=== PATIENT | female | born 1975 | race Caucasian/White ===

== ENCOUNTER 2020-04-26 15:04 | Emergency (ER) | payer SELFPAY ==
[2020-04-26] VITALS (13 sets, daily range): BP systolic 108–132; BP diastolic 64–91; PULSE 85–208; RESP 13–26; TEMP 35.9; O2SAT 97–100; BMI 22.1
--- NOTE | 2020-04-26 15:32 | XRR_ITS ---
PROCEDURE INFORMATION: Exam: XR Chest, 1 View Exam date and time: 04/26/2020 3:34 PM Age: 44 years old Clinical indication: Chest pain; Additional info: Svt TECHNIQUE: Imaging protocol: XR of the chest Views: 1 view. COMPARISON: CR Chest 1 [place] [id number] 03/24/2014 11:09 PM FINDINGS: Lungs: Unremarkable. No consolidation. Pleural space: Unremarkable. No pleural effusion. No pneumothorax. Heart/Mediastinum: Unremarkable. No cardiomegaly. Bones/joints: Unremarkable. XR/XR chest 1V portable [id number] IMPRESSION: No acute findings.
--- NOTE | 2020-04-26 15:34 | ECG_ITS ---
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
[2020-04-26 16:33] LABS: Basophils # 0.1 10^3/uL (0.0-0.1); Basophils % 1.1 %; Eosinophils # 0.1 10^3/uL (0.0-0.8); Eosinophils % 1.6 %; Hematocrit 45.7 % (37.0-47.0); Hemoglobin 15.9 g/dL (11.5-15.3); Lymphocytes # 2.3 10^3/uL (0.8-4.8); Lymphocytes % 25.8 %; Mean Corpuscular HGB Conc 34.8 g/dL (30.0-36.0); Mean Corpuscular Hemoglobin 30.7 pg (28.0-34.0); Mean Corpuscular Volume 88.2 fL (81-99); Mean Platelet Volume 9.1 fL (7.4-10.4); Monocytes # 0.7 10^3/uL (0.2-0.9); Monocytes % 7.2 %; Neutrophils # 5.74 10^3/uL (1.8-7.7); Nucleated Red Blood Cells % 0 %; Platelet Count 340 10^3/cmm (130-400); Red Blood Count 5.18 10^6/uL (4.1-5.3); Red Cell Distribution Width 11.9 % (12.1-15.1)
[2020-04-26 16:37] LABS: HCG Qualitative Urine. Negative (Negative); Specific Gravity, Urine 1.015 (1.005-1.030); Urine Appearance Hazy (CLEAR); Urine Color Yellow (Yellow); pH Urine 6.5 (5-7)
[2020-04-26 16:38] LABS: Add Urine Microscopic? YES; Bilirubin Urine Neg (Negative); Blood Urine Neg (Negative); Glucose Urine UA 4+ (Normal); Ketones Urine Negative (Negative); Leukocyte Esterase Urine Negative (Negative); Nitrate Urine Positive (Negative); Protein Urine Neg (Negative); Urobilinogen Urine Norm (Negative)
[2020-04-26 16:39] LABS: WBC Urine 0-4 /hpf (0-5)
[2020-04-26 16:40] LABS: Bacteria Urine 4+ /hpf
[2020-04-26 16:41] LABS: Add Urine Culture? Yes
[2020-04-26 16:44] LABS: Amphetamines Screen Urine Negative (Negative); Barbiturates Screen Urine Negative (Negative); Benzodiazepines Screen Urine Negative (Negative); Cocaine Screen Urine Negative (Negative); Opiate Screen Urine Negative (Negative); PCP Screen Urine Negative (Negative); THC Screen Urine Negative (Negative)
[2020-04-26 16:45] LABS: INR 0.89 (0.8-1.2)
[2020-04-26 16:48] LABS: D Dimer 0.38 ug/mIFEU (0-0.59)
[2020-04-26 16:49] LABS: Lactate (Lactic Acid level) 1.5 mmol/L (0.5-2.2)
[2020-04-26 17:01] LABS: NT Pro B Type Natriuretic Pept 89 pg/mL (0-125); Procalcitonin 0.06 ng/mL (0-0.5)
[2020-04-26 17:14] LABS: Alanine Aminotransferase 203 U/L (0-33); Albumin Level 4.1 g/dL (3.5-5.2); Alkaline Phosphatase 154 IU/L (35-105); Anion Gap 14.3 (5-19); Aspartate Amino Transferase 138 U/L (0-32); Blood Urea Nitrogen 14 mg/dL (6-20); C Reactive Protein 0.4 mg/L (0.0-4.9); Calcium 9.3 mg/dL (8.5-10.5); Carbon Dioxide 28 mmol/L (22-29); Chloride 91 mmol/L (98-107); Creatine Phosphokinase 30 U/L (26-192); Creatinine Clr Calc Pharmacy 150.1443; Globulin 2.8 g/dL (1.3-4.6); Glomerular Filtration Rate 171.8 mL/min (90-130); Glucose 362 mg/dL (65-115); Magnesium 1.7 mg/dL (1.7-2.3); Osmolality Calculated 283 mOsm/kg (285-295); Potassium 4.3 mmol/L (3.5-5.1); Sodium 129 mmol/L (136-145); Total Bilirubin 0.2 mg/dL (0.15-1.2); Total Protein 6.9 g/dL (6.6-8.7)
[2020-04-26 17:15] LABS: Alcohol Level < 10 mg/dL (0-10); Thyroid Stimulating Hormone 5.09 uIU/mL (0.27-4.20); Troponin(5th) Baseline 8 ng/L (0-10)
--- NOTE | 2020-04-26 17:28 | USR_ITS ---
PROCEDURE INFORMATION: Exam: US Abdomen, Limited; Right Upper Quadrant Exam date and time: 04/26/2020 5:35 PM Age: 44 years old Clinical indication: Abnormal findings; Abnormal lab test; Elevated liver enzymes TECHNIQUE: Imaging protocol: US abdomen. Real time ultrasound with image documentation. Limited exam focused on the right upper quadrant. COMPARISON: No relevant prior studies available. FINDINGS: Liver: There is diffuse increased echogenicity consistent with hepatic steatosis. No masses. The liver span is 15 cm. No dilated bile ducts seen. Gallbladder: Normal. No gallstones. There is no gallbladder wall thickening. Common bile duct: Normal. No stones. 3.2 mm Pancreas: Visualized pancreas is unremarkable. Right kidney: Normal. No mass. No hydronephrosis. 11.8 cm x 5.5 cm x 5.8 cm a a The abdominal aorta a has AP measurement of 1.4 cm in the proximal aspect, the mid aorta measures 1.3 cm. The distal aorta is not visible due to bowel gas. US/US gall bladder [id number] IMPRESSION: 1. Hepatic steatosis without focal hepatic abnormality. 2. Normal mid and proximal aorta 3. Otherwise negative right upper quadrant sonogram
[2020-04-26] MEDS: sodium chloride 0.9% 1,000 ML 999 ML IV (17:40)
--- NOTE | 2020-04-26 18:00 | ECG_ITS ---
[facility] Test Date: 2020-04-26 Pat Name: Mena Zelaya Department: Room: Gender: Female Collator: : 1975 Requested By: Aixa Lopez I Order Number: [id number] Zoraida MD: Josie Roth M.D. Measurements Intervals [place] Rate: 197 P: [place]: QRS: 23 QRSD: 88 T: 75 QT: 216 QTc: 391 Interpretive Statements SUPRAVENTRICULAR TACHYCARDIA NONSPECIFIC ST & T-WAVE ABNORMALITY CRITICAL TEST RESULT No previous ECG available for comparison Electronically Signed On 04-28-2020 17:19:07 ACREAGE REPORTER by Josie Roth M.D. [id number] f
[2020-04-26] MEDS: ketorolac 30 mg/mL INJ IVP (18:08)
[2020-04-26] MEDS: cefTRIAXone 1,000 MG in sodium chloride 0.9% (plus) 50 ML 100 MG IV (18:53)
[2020-04-26 20:06] LABS: Troponin 5 2HR 13.26 ng/L (0-10); Troponin 5 2HR Delta 5.26 ABS# (0-10)
--- NOTE | 2020-04-26 20:37 | W.ED.ARRPALP ---
HPI - Arrhythmia/Palpitations General: Chief Complaint: Arrhythmia/Palpitations Stated Complaint: high bp/head ache Time Seen by Provider: 04/26/20 15:32 Source: patient Mode of arrival: ambulatory Limitations: no limitations History of Present Illness: HPI narrative: 44-year-old female patient with a history of insulin-dependent diabetes mellitus but has been off her medication for several years, hypothyroidism and has been off her meds also for several years. She presents to the emergency department with a sensation of her heart racing, dizziness and headache. She denies any fever, denies any new medications. She also denies any drug use. complaint: heart racing Duration: constant Severity: severe Context: occurred during rest Associated symptoms: Deny anxiety, cough, diaphoresis, muscle cramps, nausea, paresthesias, pre-syncope, sense of impending doom, short of breath, syncope or vomiting Review of Systems General: Reports: 10 or more systems reviewed and unremarkable except in HPI and below Const: Denies: diaphoresis Eyes: Denies: change in vision or blurry vision ENMT: Denies: throat pain, enlarged tonsils, odynophagia, hoarseness, mouth pain or swelling of lips/tongue Card: Denies: syncope or pre-syncope Resp: Denies: dyspnea, productive cough or non-productive cough GI: Denies: nausea or vomiting : Denies: flank pain, difficulty voiding, dysuria, urinary frequency, urinary urgency or urinary hesitancy Musc: Denies: muscle cramps Skin/Breast: Denies: rash, pruritus or erythema Neuro: Denies: headache(s), numbness in extremities or weakness in extremities Psych: Denies: anxiety Endo: Denies: polyuria, polydipsia or tired all the time [facility] PFSH: Social History Smoking and tobacco status: current every day smoker Physical Exam Const: COMMON NORMALS: no acute distress, average body habitus, patient oriented x3, no limitations, healthy appearing, alert and well nourished HENMT: COMMON NORMALS: normocephalic, atraumatic and moist oral mucous membranes HEAD & SCALP: normocephalic and atraumatic Neck/C-Spine: COMMON NORMALS: full ROM, supple, no meningeal signs, no JVD and No carotid bruits Resp: COMMON NORMALS: normal respiratory effort, No retractions, No use of accessory muscles, clear to auscultation bilaterally and percussion normal AUSCULTATION: clear to auscultation bilaterally PERCUSSION: percussion normal Cardio: COMMON NORMALS: no JVD, regular rhythm, S1 normal heart sound present, S2 normal heart sound present, No gallops present (Cardio), No clicks present (Cardio), No murmurs present (Cardio), No rub (Cardio) and Peripheral pulses 2+ throughout RATE: tachycardic RHYTHM: regular rhythm HEART SOUNDS: S1 normal heart sound present and S2 normal heart sound present PERIPHERAL PULSES: Peripheral pulses 2+ throughout GI: COMMON NORMALS: Normal to inspection, nondistended, normoactive bowel sounds present, Soft to palpation, non-tender, No hepatosplenomegaly present, no masses and no bruits PALPATION: Yes Soft to palpation and Yes No hepatosplenomegaly present Extremity: COMMON NORMALS: normal to inspection, full ROM, capillary refill normal, no calf tenderness and no pedal edema Neuro: COMMON NORMALS: patient oriented x3 SENSORIUM/ORIENTATION: Yes alert MENINGEAL SIGNS: Yes no meningeal signs Skin: COMMON NORMALS: no rashes or lesions noted, no wounds, turgor normal, no jaundice, no petechiae and no mottling GENERAL SKIN EXAM: no rashes or lesions noted and turgor normal Course Reevaluation(s): Reevaluation #1: Discussed her lab and imaging findings with her. TSH mildly elevated, mildly elevated troponin but not a significant 2-hour delta. Urine consistent with a UTI. We will discharge her home with a prescription for antibiotics, refill her thyroid medication and her insulin since she has been out of it for a long time. She will follow at the present clinic for further management. She has a glucometer and can monitor her blood glucose. We will start her on a low-dose Levemir at 10 units. She voiced understanding and is in agreement with the plan. Time: 20:38 Vital Signs: Vital signs: Vital Signs Temperature 96.6 F L 04/26/20 15:13 Pulse Rate 89 04/26/20 21:12 Respiratory Rate 16 04/26/20 21:12 Blood Pressure 115/64 04/26/20 21:12 Pulse Oximetry 97 04/26/20 21:12 MDM - Arrhythmia/Palpitations MDM Narrative: Medical decision making narrative: 44-year-old female patient who presents to the emergency department in SVT. Her heart rate was in the 190s/low 200s when she arrived, she was given a single dose of intravenous adenosine, 6 mg. This was successful at aborting the SVT. She remained asymptomatic afterwards. Her heart rate gradually came down to normal sinus rhythm. Evaluation in the ED showed she had a UTI and she was hypothyroid. She was discharged home with a prescription for Bactrim, levothyroxine and insulin. She has not had her medications for several years because she is uninsured. I discussed the option of the [facility] clinic here in [place] and she says she has already looked into that and will follow up there. She will be receiving her care from there from now on. I gave her a 30-day prescription of her medications while she gets an appointment at the clinic. Medical Records: Attestation: I reviewed the patient's medical records. Lab Data: Attestation: I reviewed the patient's lab results. Labs: Lab Results 04/26/20 04/26/20 04/26/20 Range/Units 16:06 16:06 16:06 WBC (4.0-10.0) 10^3/ uL RBC (4.1-5.3) 10^6/u L Hgb (11.5-15.3) g/dL Hct (37.0-47.0) % MCV (81-99) fL MCH (28.0-34.0) pg MCHC (30.0-36.0) g/dL RDW (12.1-15.1) % Plt Count (130-400) 10^3/c mm MPV (7.4-10.4) fL Neut % (Auto) % Lymph % (Auto) % Lyman % (Auto) % Eos % (Auto) % Baso % (Auto) % Neut # (Auto) (1.8-7.7) 10^3/u L Lymph # (Auto) (0.8-4.8) 10^3/u L Lyman # (Auto) (0.2-0.9) 10^3/u L Eos # (Auto) (0.0-0.8) 10^3/u L Baso # (Auto) (0.0-0.1) 10^3/u L Nucleated RBC % (a uto) % Nucleated RBCs # /100WBC PT (12.1-14.9) SECO NDS INR (0.8-1.2) D-Dimer (0-0.59) ug/mIFE U Sodium (136-145) mmol/L Potassium (3.5-5.1) mmol/L Chloride (98-107) mmol/L Carbon Dioxide (22-29) mmol/L Anion Gap (5-19) BUN (6-20) mg/dL Creatinine (0.5-0.9) mg/dL GFR Calculation (90-130) mL/min Glucose (65-115) mg/dL Calculated Osmolal ity (285-295) mOsm/k g Lactate (0.5-2.2) mmol/L Calcium (8.5-10.5) mg/dL Magnesium (1.7-2.3) mg/dL Total Bilirubin (0.15-1.2) mg/dL AST (0-32) U/L ALT (0-33) U/L Alkaline Phosphata se (35-105) IU/L Creatine Kinase (26-192) U/L Troponin T Baselin e (0-10) ng/L Troponin T 120 Min [place] (0-10) ng/L Delta Troponin T (0-10) ABS# C-Reactive Protein (0.0-4.9) mg/L NT-Pro-B Natriuret Pep (0-125) pg/mL Total Protein (6.6-8.7) g/dL Albumin (3.5-5.2) g/dL Globulin (1.3-4.6) g/dL Procalcitonin (0-0.5) ng/mL TSH (0.27-4.20) uIU/ mL HCG, Qual Negative (Negative) Urine Color Yellow (Yellow) Urine Appearance Hazy A (CLEAR) Urine pH 6.5 (5-7) Ur Specific Gravit y 1.015 (1.005-1.030) Urine Protein Neg (Negative) Urine Glucose (UA) 4+ H (Normal) Urine Ketones Negative (Negative) Urine Blood Neg (Negative) Urine Nitrate Positive H (Negative) Urine Bilirubin Neg (Negative) Urine Urobilinogen Norm (Negative) mg/dL Ur Leukocyte Ashanti ase Negative (Negative) Urine RBC None (0-2) /hpf Urine WBC 0-4 H (0-5) /hpf Ur Squamous Epith Cells 5-10 H (0-5) /hpf Amorphous Sediment Not Reportable Urine Bacteria 4+ H (NONE) /hpf Urine Yeast Trace /hpf Urine Opiates Scre en Negative (Negative) ng/mL Ur Barbiturates Sc reen Negative (Negative) ng/mL Ur Phencyclidine S crn Negative (Negative) ng/mL Ur Amphetamines Sc reen Negative (Negative) ng/mL U Benzodiazepines Scrn Negative (Negative) ng/mL Urine Cocaine Scre en Negative (Negative) ng/mL U Marijuana (THC) Screen Negative (Negative) ng/mL Ethyl Alcohol (0-10) mg/dL 04/26/20 04/26/20 04/26/20 Range/Units 16:22 16:22 16:22 WBC 9.0 (4.0-10.0) 10^3/ uL RBC 5.18 (4.1-5.3) 10^6/u L Hgb 15.9 H (11.5-15.3) g/dL Hct 45.7 (37.0-47.0) % MCV 88.2 (81-99) fL MCH 30.7 (28.0-34.0) pg MCHC 34.8 (30.0-36.0) g/dL RDW 11.9 L (12.1-15.1) % Plt Count 340 (130-400) 10^3/c mm MPV 9.1 (7.4-10.4) fL Neut % (Auto) 64.0 % Lymph % (Auto) 25.8 % Lyman % (Auto) 7.2 % Eos % (Auto) 1.6 % Baso % (Auto) 1.1 % Neut # (Auto) 5.74 (1.8-7.7) 10^3/u L Lymph # (Auto) 2.3 (0.8-4.8) 10^3/u L Lyman # (Auto) 0.7 (0.2-0.9) 10^3/u L Eos # (Auto) 0.1 (0.0-0.8) 10^3/u L Baso # (Auto) 0.1 (0.0-0.1) 10^3/u L Nucleated RBC % (a uto) 0 % Nucleated RBCs # 0.0 /100WBC PT 12.30 (12.1-14.9) SECO NDS INR 0.89 (0.8-1.2) D-Dimer 0.38 (0-0.59) ug/mIFE U Sodium 129 L (136-145) mmol/L Potassium 4.3 (3.5-5.1) mmol/L Chloride 91 L (98-107) mmol/L Carbon Dioxide 28 (22-29) mmol/L Anion Gap 14.3 (5-19) BUN 14 (6-20) mg/dL Creatinine 0.4 L (0.5-0.9) mg/dL GFR Calculation 171.8 H (90-130) mL/min Glucose 362 H (65-115) mg/dL Calculated Osmolal ity 283 L (285-295) mOsm/k g Lactate (0.5-2.2) mmol/L Calcium 9.3 (8.5-10.5) mg/dL Magnesium 1.7 (1.7-2.3) mg/dL Total Bilirubin 0.2 (0.15-1.2) mg/dL AST 138 H (0-32) U/L ALT 203 H (0-33) U/L Alkaline Phosphata se 154 H (35-105) IU/L Creatine Kinase 30 (26-192) U/L Troponin T Baselin e (0-10) ng/L Troponin T 120 Min [place] (0-10) ng/L Delta Troponin T (0-10) ABS# C-Reactive Protein 0.4 (0.0-4.9) mg/L NT-Pro-B Natriuret Pep 89 (0-125) pg/mL Total Protein 6.9 (6.6-8.7) g/dL Albumin 4.1 (3.5-5.2) g/dL Globulin 2.8 (1.3-4.6) g/dL Procalcitonin 0.06 (0-0.5) ng/mL TSH 5.09 H (0.27-4.20) uIU/ mL HCG, Qual (Negative) Urine Color (Yellow) Urine Appearance (CLEAR) Urine pH (5-7) Ur Specific Gravit y (1.005-1.030) Urine Protein (Negative) Urine Glucose (UA) (Normal) Urine Ketones (Negative) Urine Blood (Negative) Urine Nitrate (Negative) Urine Bilirubin (Negative) Urine Urobilinogen (Negative) mg/dL Ur Leukocyte Ashanti ase (Negative) Urine RBC (0-2) /hpf Urine WBC (0-5) /hpf Ur Squamous Epith Cells (0-5) /hpf Amorphous Sediment Urine Bacteria (NONE) /hpf Urine Yeast /hpf Urine Opiates Scre en (Negative) ng/mL Ur Barbiturates Sc reen (Negative) ng/mL Ur Phencyclidine S crn (Negative) ng/mL Ur Amphetamines Sc reen (Negative) ng/mL U Benzodiazepines Scrn (Negative) ng/mL Urine Cocaine Scre en (Negative) ng/mL U Marijuana (THC) Screen (Negative) ng/mL Ethyl Alcohol < 10 (0-10) mg/dL 04/26/20 04/26/20 04/26/20 Range/Units 16:22 16:22 19:26 WBC (4.0-10.0) 10^3/ uL RBC (4.1-5.3) 10^6/u L Hgb (11.5-15.3) g/dL Hct (37.0-47.0) % MCV (81-99) fL MCH (28.0-34.0) pg MCHC (30.0-36.0) g/dL RDW (12.1-15.1) % Plt Count (130-400) 10^3/c mm MPV (7.4-10.4) fL Neut % (Auto) % Lymph % (Auto) % Lyman % (Auto) % Eos % (Auto) % Baso % (Auto) % Neut # (Auto) (1.8-7.7) 10^3/u L Lymph # (Auto) (0.8-4.8) 10^3/u L Lyman # (Auto) (0.2-0.9) 10^3/u L Eos # (Auto) (0.0-0.8) 10^3/u L Baso # (Auto) (0.0-0.1) 10^3/u L Nucleated RBC % (a uto) % Nucleated RBCs # /100WBC PT (12.1-14.9) SECO NDS INR (0.8-1.2) D-Dimer (0-0.59) ug/mIFE U Sodium (136-145) mmol/L Potassium (3.5-5.1) mmol/L Chloride (98-107) mmol/L Carbon Dioxide (22-29) mmol/L Anion Gap (5-19) BUN (6-20) mg/dL Creatinine (0.5-0.9) mg/dL GFR Calculation (90-130) mL/min Glucose (65-115) mg/dL Calculated Osmolal ity (285-295) mOsm/k g Lactate 1.5 (0.5-2.2) mmol/L Calcium (8.5-10.5) mg/dL Magnesium (1.7-2.3) mg/dL Total Bilirubin (0.15-1.2) mg/dL AST (0-32) U/L ALT (0-33) U/L Alkaline Phosphata se (35-105) IU/L Creatine Kinase (26-192) U/L Troponin T Baselin e 8 (0-10) ng/L Troponin T 120 Min [place] 13.26 H (0-10) ng/L Delta Troponin T 5.26 (0-10) ABS# C-Reactive Protein (0.0-4.9) mg/L NT-Pro-B Natriuret Pep (0-125) pg/mL Total Protein (6.6-8.7) g/dL Albumin (3.5-5.2) g/dL Globulin (1.3-4.6) g/dL Procalcitonin (0-0.5) ng/mL TSH (0.27-4.20) uIU/ mL HCG, Qual (Negative) Urine Color (Yellow) Urine Appearance (CLEAR) Urine pH (5-7) Ur Specific Gravit y (1.005-1.030) Urine Protein (Negative) Urine Glucose (UA) (Normal) Urine Ketones (Negative) Urine Blood (Negative) Urine Nitrate (Negative) Urine Bilirubin (Negative) Urine Urobilinogen (Negative) mg/dL Ur Leukocyte Ashanti ase (Negative) Urine RBC (0-2) /hpf Urine WBC (0-5) /hpf Ur Squamous Epith Cells (0-5) /hpf Amorphous Sediment Urine Bacteria (NONE) /hpf Urine Yeast /hpf Urine Opiates Scre en (Negative) ng/mL Ur Barbiturates Sc reen (Negative) ng/mL Ur Phencyclidine S crn (Negative) ng/mL Ur Amphetamines Sc reen (Negative) ng/mL U Benzodiazepines Scrn (Negative) ng/mL Urine Cocaine Scre en (Negative) ng/mL U Marijuana (THC) Screen (Negative) ng/mL Ethyl Alcohol (0-10) mg/dL Imaging Data^: CXR: Attestation: I personally reviewed and interpreted this imaging study as follows: Radiologist's impression: [employer] [address] [place] [id number] XRay Report Signed Patient: Mena Zelaya #: [id number] : 1975Acct#:[id number] Age/Sex: 44 / FADM Date: 04/26/20 Loc: ERRoom/Bed: Attending Dr: Ordering Provider/Ordering MD: Aixa Lopez MD, [facility] Date of Service: 04/26/20 Procedure(s): XR chest 1V portable [id number] Accession Number(s): [id number] Report Number: [id number] PROCEDURE INFORMATION: Exam: XR Chest, 1 View Exam date and time: 04/26/2020 3:34 PM Age: 44 years old Clinical indication: Chest pain; Additional info: Svt TECHNIQUE: Imaging protocol: XR of the chest Views: 1 view. COMPARISON: CR Chest 1 [place] [id number] 03/24/2014 11:09 PM FINDINGS: Lungs: Unremarkable. No consolidation. Pleural space: Unremarkable. No pleural effusion. No pneumothorax. Heart/Mediastinum: Unremarkable. No cardiomegaly. Bones/joints: Unremarkable. XR/XR chest 1V portable [id number] IMPRESSION: No acute findings. Dictated By:Colin Goodson Signed By:Andrews Goodson Date/Time:04/26/20 1642 DD/ 1641 US: Radiologist's impression: [employer] [address] [place] [id number] Ultrasound Report Signed Patient: Mena Zelaya #: [id number] : 1975Acct#:[id number] Age/Sex: 44 / FADM Date: 04/26/20 Loc: ERRoom/Bed: Attending Dr: Ordering Provider/Ordering MD: Aixa Lopez MD, [facility] Date of Service: 04/26/20 Procedure(s): US gall bladder [id number] Accession Number(s): [id number] Report Number: [id number] PROCEDURE INFORMATION: Exam: US Abdomen, Limited; Right Upper Quadrant Exam date and time: 04/26/2020 5:35 PM Age: 44 years old Clinical indication: Abnormal findings; Abnormal lab test; Elevated liver enzymes TECHNIQUE: Imaging protocol: US abdomen. Real time ultrasound with image documentation. Limited exam focused on the right upper quadrant. COMPARISON: No relevant prior studies available. FINDINGS: Liver: There is diffuse increased echogenicity consistent with hepatic steatosis. No masses. The liver span is 15 cm. No dilated bile ducts seen. Gallbladder: Normal. No gallstones. There is no gallbladder wall thickening. Common bile duct: Normal. No stones. 3.2 mm Pancreas: Visualized pancreas is unremarkable. Right kidney: Normal. No mass. No hydronephrosis. 11.8 cm x 5.5 cm x 5.8 cm a a The abdominal aorta a has AP measurement of 1.4 cm in the proximal aspect, the mid aorta measures 1.3 cm. The distal aorta is not visible due to bowel gas. US/US gall bladder [id number] IMPRESSION: 1. Hepatic steatosis without focal hepatic abnormality. 2. Normal mid and proximal aorta 3. Otherwise negative right upper quadrant sonogram Dictated By:Colin Goodson Signed By:Andrews Goodson Date/Time:04/26/201816 DD/ 14 EKG Data^: EKG 1: Attestation: I personally reviewed and interpreted this EKG as follows: EKG interpretation date: 04/26/20 EKG interpretation time: 15:21 Prior EKG tracings: not available for review Interpretation: Supraventricular tachycardia. Heart rate [address] changes. Other EKG comments: Chest X-Ray 04/26/20 15:32 IMPRESSION: No acute findings. Gallbladder Ultrasound 04/26/20 17:28 IMPRESSION: 1. Hepatic steatosis without focal hepatic abnormality. 2. Normal mid and proximal aorta 3. Otherwise negative right upper quadrant sonogram EKG 2: Attestation: I personally reviewed and interpreted this EKG as follows: EKG interpretation date: 04/26/20 EKG interpretation time: 15:27 Prior EKG tracings: available for review Interpretation: Sinus tachycardia. Heart rate [address] changes. This is post adenosine 6 mg intravenously Other EKG comments: Chest X-Ray 04/26/20 15:32 IMPRESSION: No acute findings. Gallbladder Ultrasound 04/26/20 17:28 IMPRESSION: 1. Hepatic steatosis without focal hepatic abnormality. 2. Normal mid and proximal aorta 3. Otherwise negative right upper quadrant sonogram Critical Care Time Critical Care Time: Critical Care Time: Yes Total Critical Care Time: 30 Attestation: This case had a high probability of a clinically significant, sudden, or life threatening deterioration of this patient's condition which required my full and direct attention, intervention and personal management. Discharge Plan Discharge Patient Disposition: Home Clinical Impression: Supraventricular tachycardia Diabetes Qualifiers: Diabetes mellitus type: type 2 Diabetes mellitus snf insulin use: with exterminator helper termite use Diabetes mellitus complication status: without complication Qualified Code(s): E11.9 - Type 2 diabetes mellitus without complications Hypothyroidism Qualifiers: Hypothyroidism type: unspecified Qualified Code(s): E03.9 - Hypothyroidism, unspecified UTI (urinary tract infection) Qualifiers: Urinary tract infection type: acute cystitis Hematuria presence: without hematuria Qualified Code(s): N30.00 - Acute cystitis without hematuria Condition: Stable Prescriptions: New Bactrim DS 800-160 mg tablet 1 tab PO BID 5 Days Qty: 10 RF: 0 levothyroxine 125 mcg tablet 125 mcg PO DAILY Qty: 30 RF: 0 Levemir U-100 Insulin 100 unit/mL solution 10 unit SUBCUT QPM Qty: 10 RF: 0 Discharge Orders: Discharge ED (Routine); Ordered 04/26/20 Ordered By: Aixa Lopez Discharge Diet: Usual diet Discharge Activity: Resume usual activity Patient Instructions: Supraventricular Tachycardia (ED), Urinary Tract Infection in Women (ED), Hypothyroidism (ED), Diabetes Mellitus Type 2 in Adults (ED) Activity Restrictions/Additional Instructions: Return for any new or worsening symptoms. Follow-up with your primary care provider within 3 days. Call the [facility] to schedule an appointment to be seen there as soon as possible. Take the medications as prescribed. Check your blood sugar levels at least twice a day, once before breakfast and once before bedtime. You may check it at any time in between if you feel your blood sugars getting too low. Take the medications as prescribed. Drink plenty of water to keep well-hydrated. Coding Level of Care Code ED Biological Technical Officer for Esperanza Fwd Exam Comprehensive
== END 2020-04-26 21:48 | disposition home or self-care (01) ==
PROVIDERS: Nurse Practitioner Family; Emergency Provider Family Medicine
DX: I47.1 Supraventricular tachycardia (principal); E11.9 Type 2 diabetes mellitus without complications; E03.9 Hypothyroidism, unspecified; N30.00 Acute cystitis without hematuria; F17.210 Nicotine dependence, cigarettes, uncomplicated
CPT/HCPCS: 12345; 36415; 71045; 76705; 80053; 80306; 80307; 81001; 81025; 82550; 83605; 83735; 83880; 84145; 84443; 84484; 85025; 85378; 85610; 86140; 87077; 87086; 87186; 93005; 96365; 96375; 99283; 99284; J0153; J0696; J1885; J7030

== ENCOUNTER 2020-07-04 16:05 | Observation (INO) | payer SELFPAY ==
[2020-07-04] VITALS (10 sets, daily range): BP systolic 103–138; BP diastolic 62–80; PULSE 64–108; RESP 17–22; TEMP 36.7–36.8; O2SAT 96–100; BMI 21.2
--- NOTE | 2020-07-04 16:11 | ECG_ITS ---
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 Measurements Intervals [place] Rate: 114 P: 42 W[place]: 128 QRS: 14 QRSD: 70 T: 30 QT: 290 QTc: 400 Interpretive Statements SINUS TACHYCARDIA ABNORMAL RHYTHM ECG INTERPRETATION BASED ON A DEFAULT AGE OF 40 YEARS Compared to ECG 04/26/2020 15:27:52 No significant changes Electronically Signed On 07-04-2020 19:26:33 FURNACE HELPER by aB Cyr M.D. [id number] f
--- NOTE | 2020-07-04 16:11 | XRR_ITS ---
PROCEDURE INFORMATION: Exam: XR Chest, 1 View Exam date and time: 07/04/2020 4:44 PM Age: 44 years old Clinical indication: Chest pain; Additional info: Cp TECHNIQUE: Imaging protocol: XR of the chest Views: 1 view. COMPARISON: CR XR chest 1V portable [id number] 04/26/2020 3:41 PM FINDINGS: Lungs: No consolidation. Pleural spaces: Unremarkable. No pleural effusion. No pneumothorax. Heart/Mediastinum: No cardiomegaly. Bones/joints: Mild degenerative thoracic spine changes. XR/XR chest 1V portable [id number] IMPRESSION: 1. No acute cardiopulmonary disease demonstrated. 2. There is no interval change from the prior examination.
--- NOTE | 2020-07-04 16:15 | W.ED.GENADLT ---
HPI - General Adult General: Chief complaint: Chest Pain Stated complaint: CP / N/V Time Seen by Provider: 07/04/20 16:11 History of Present Illness: HPI narrative: The patient is a 44-year-old female with past medical history diabetes noncompliant with her medications and follow-ups for years. She comes to the ER complaining of left chest pain which was a 10 at home. She has been having it for approximately 2 weeks as well as fevers up to 101 at home. She is taken no medications for this and her glucose is above 460 in EMS prior to arrival. EMS gave her 4 baby aspirin's and a nitroglycerin which she said relieved her pain from a 7 to a 6. They placed Nitropaste which in the ED she says her pain on the left side has eased but now she has 6 out of 10 pain on the right breast. She says she has a history of SVT as well and is not sure why or what happened. She says her chest pain has been on and off for years but the past 2 weeks it has been increasing and today it was a 10 out of 10 opting her to call 911. When I palpate her chest she says it reproduces the pain she is having. Radiation: non-radiation Severity: moderate Quality: sharp Associated symptoms: Reports chest pain, fevers/chills and headache(s); Deny cough, dyspnea, nausea, rash, short of breath or vomiting Treatments prior to arrival: none Review of Systems General: Reports: 10 or more systems reviewed and unremarkable except in HPI and below Const: Denies: fatigue Eyes: Denies: change in vision, blurry vision or eye redness ENMT: Denies: throat pain, swelling of lips/tongue, ear or mastoid pain or nasal congestion Card: Reports: chest pain Resp: Denies: dyspnea GI: Denies: nausea or vomiting : Denies: flank pain, difficulty voiding, urinary frequency or urinary urgency Musc: Denies: neck pain, back pain, extremity pain, joint pain, joint redness, limited range of motion or muscle weakness Skin/Breast: Denies: rash, pruritus, erythema, skin pain or skin tenderness Neuro: Reports: headache(s) Psych: Denies: anxiety or depression Endo: Denies: polyuria All/Imm: Denies: urticaria, throat swelling or tongue swelling PFSH ED PFSH: Medical History (Updated 07/04/20 @ 22:16 by Cristel Brock MD) Anxiety Chronic bronchitis Diabetes initially gestational age ~24, persisted and diagnosed as Type II diabetes, obese at onset, no change with weight loss Dyslipidemia Hepatitis C 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, s/p treatment with interferon in ~ 1999 by Eddie 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 History of MRSA infection diabetic wounds Marijuana use JOSE (obstructive sleep apnea) per sleep study 2010, CPAP of 13 recommended at that time, no longer with machine Supraventricular tachycardia (~04/2020) identified during ED visit 04/2020, treated with 6mg adenosine with conversion to sinus Surgical History (Updated 07/04/20 @ 20:53 by Cristel Brock MD) History of hysterectomy (~2011) also Kimberly urethral plication History of incision and drainage (~2013) right upper extremity and R lower extremity History of tubal ligation History of umbilical hernia repair (~2011) Family History (Updated 07/04/20 @ 21:42 by Cristel Brock MD) Father Diabetes Mother Diabetes Grandfather Pacemaker Denies family history of Stroke Social History (Updated 07/04/20 @ 21:43 by Cristel Brock MD) Smoking and tobacco status: current every day smoker cigarettes Number of cigarettes per day: 11-20 Alcohol intake: never Substance/Drug Use: current Substance/Drug use frequency: few times a month Substance/Drug use type: Marijuana Physical Exam Const: COMMON NORMALS: no acute distress, average body habitus, patient oriented x3, no limitations, healthy appearing, alert and well nourished GENERAL APPEARANCE: cooperative, comfortable, well developed and anxious ORIENTATION/CONSCIOUSNESS: Yes awake, Yes oriented to person, Yes oriented to place and Yes oriented to time HENMT: COMMON NORMALS: normocephalic, external ears normal and Normal external nose present HEAD & SCALP: normal to inspection and normocephalic NOSE: Normal external nose present EXTERNAL EAR: Yes external ears normal MOUTH: Normal oral and palatal mucosa present THROAT: posterior oropharynx normal Eye: COMMON NORMALS: Equal, round and reactive pupils present and EOMs intact bilaterally GENERAL EYE: appearance normal, both eyes and all related structures PUPIL: Yes Equal, round and reactive pupils present Neck/C-Spine: COMMON NORMALS: full ROM, no lymphadenopathy, no meningeal signs and no JVD GENERAL: Yes normal visual inspection Lymph: LYMPHATIC: no lymphadenopathy noted Chest: COMMONS NORMALS: normal inspection of the chest and normal palpation of entire chest wall Resp: COMMON NORMALS: normal respiratory effort, No retractions, No use of accessory muscles, clear to auscultation bilaterally and percussion normal EFFORT & INSPECTION: Yes able to speak in complete sentences AUSCULTATION: clear to auscultation bilaterally PERCUSSION: percussion normal Cardio: COMMON NORMALS: no JVD, regular rate, regular rhythm, S1 normal heart sound present, S2 normal heart sound present and Peripheral pulses 2+ throughout RATE: regular rate RHYTHM: regular rhythm HEART SOUNDS: S1 normal heart sound present and S2 normal heart sound present PERIPHERAL PULSES: Peripheral pulses 2+ throughout GI: COMMON NORMALS: Normal to inspection, nondistended, normoactive bowel sounds present, Soft to palpation, non-tender and no masses INSPECTION: Yes normal to inspection PALPATION: Yes Soft to palpation : COMMON NORMALS: Yes no CVA tenderness BLADDER/KIDNEY EXAM: Yes no CVA tenderness Back/Pelvis: COMMON NORMALS: no CVA tenderness, thoracic and lumbar spine normal to inspection, no thoracic nor lumbar tenderness and thoraco-lumbar ROM normal Extremity: COMMON NORMALS: normal to inspection, full ROM, capillary refill normal, no joint enlargement and no pedal edema GENERAL: Yes normal exam except as noted Neuro: COMMON NORMALS: patient oriented x3, CN's II-XII intact bilaterally, moves all extremities, no focal motor deficits, no sensory deficits noted and gait normal SENSORIUM/ORIENTATION: Yes alert, Yes oriented to person, Yes oriented to place and Yes oriented to time MENINGEAL SIGNS: Yes no meningeal signs Psych: COMMON NORMALS: cooperative and normal affect SPEECH: Yes excessive and Yes rapid OTHER: Psychomotor agitation Skin: COMMON NORMALS: no rashes or lesions noted GENERAL SKIN EXAM: no rashes or lesions noted Course Vital Signs: Vital signs: Vital Signs Temperature 98.1 F 07/04/20 22:19 Pulse Rate 108 H 07/04/20 22:19 Respiratory Rate 18 07/04/20 22:19 Blood Pressure 107/70 07/04/20 22:19 Pulse Oximetry 98 07/04/20 22:19 MDM - General Adult MDM Narrative: Medical decision making narrative: The patient is noncompliant and had an initial glucose over 800. She was started on an insulin drip and given IV fluids. Hours later her blood glucose was in the 200s and she was stable for admission. Dr. Brock accepts Lab Data: Labs: Lab Results 07/04/20 07/04/20 07/04/20 Range/Units 15:45 15:45 15:45 WBC 16.8 H (4.0-10.0) 10^3/ uL RBC 5.33 H (4.1-5.3) 10^6/u L Hgb 16.4 H (11.5-15.3) g/dL Hct 45.9 (37.0-47.0) % MCV 86.1 (81-99) fL MCH 30.8 (28.0-34.0) pg MCHC 35.7 (30.0-36.0) g/dL RDW 11.7 L (12.1-15.1) % Plt Count 381 (130-400) 10^3/c mm MPV 9.5 (7.4-10.4) fL Neut % (Auto) 77.2 % Lymph % (Auto) 12.7 % Jerome % (Auto) 8.9 % Eos % (Auto) 0.2 % Baso % (Auto) 0.5 % Neut # (Auto) 12.96 H (1.8-7.7) 10^3/u L Lymph # (Auto) 2.1 (0.8-4.8) 10^3/u L Jerome # (Auto) 1.5 H (0.2-0.9) 10^3/u L Eos # (Auto) 0.0 (0.0-0.8) 10^3/u L Baso # (Auto) 0.1 (0.0-0.1) 10^3/u L Nucleated RBC % (a uto) 0 % Nucleated RBCs # 0.0 /100WBC D-Dimer 0.44 (0-0.59) ug/mIFE U Specimen Type Sample Site ABG pH (7.35-7.45) ABG pCO2 (35-45) mmHg ABG pO2 (80.0-100.0) mmH g ABG HCO3 (22-26) mmol/L ABG O2 Saturation ABG Base Excess (-2.0-2.0) mmol/ L Satish Test A-a O2 Gradient (5-10) mmHg Hematocrit (37-47) % Hgb O2 Saturation (95-100) % Carboxyhemoglobin (0.4-20.1) %THgb Methemoglobin (0.4-1.5) % Total Hemoglobin (12-16) g/dL Ionized Calcium (1.1-1.4) mmol/L O2 Delivery Device FiO2 % Principal Automation Engineer ID Sodium 118 L* (136-145) mmol/L Potassium 5.0 (3.5-5.1) mmol/L Chloride 78 L (98-107) mmol/L Carbon Dioxide 27 (22-29) mmol/L Anion Gap 18.0 (5-19) BUN 23 H (6-20) mg/dL Creatinine 0.6 (0.5-0.9) mg/dL GFR Calculation 107.6 (90-130) mL/min Glucose 823 H* (65-115) mg/dL POC Glucose (70-110) mg/dL Calculated Osmolal ity 290 (285-295) mOsm/k g Calcium 9.5 (8.5-10.5) mg/dL Phosphorus Magnesium Total Bilirubin 0.6 (0.15-1.2) mg/dL AST 47 H (0-32) U/L ALT 105 H (0-33) U/L Alkaline Phosphata se 151 H (35-105) IU/L Troponin T Baselin e (0-10) ng/L Troponin T 120 Min little shell tribe (0-10) ng/L Delta Troponin T (0-10) ABS# Total Protein 7.4 (6.6-8.7) g/dL Albumin 4.2 (3.5-5.2) g/dL Globulin 3.2 (1.3-4.6) g/dL Lipase TSH (0.27-4.20) uIU/ mL Free T4 HCG, Qual (Negative) Urine Color (Yellow) Urine Appearance (CLEAR) Urine pH (5-7) Ur Specific Gravit y (1.005-1.030) Urine Protein (Negative) Urine Glucose (UA) (Normal) Urine Ketones (Negative) Urine Blood (Negative) Urine Nitrate (Negative) Urine Bilirubin (Negative) Urine Urobilinogen (Negative) mg/dL Ur Leukocyte Ashanti ase (Negative) Urine RBC (0-2) /hpf Urine WBC (0-5) /hpf Ur Squamous Epith Cells (0-5) /hpf Amorphous Sediment Urine Bacteria (NONE) /hpf Urine Opiates Scre en (Negative) ng/mL Ur Barbiturates Sc reen (Negative) ng/mL Ur Phencyclidine S crn (Negative) ng/mL Ur Amphetamines Sc reen (Negative) ng/mL U Benzodiazepines Scrn (Negative) ng/mL Urine Cocaine Scre en (Negative) ng/mL U Marijuana (THC) Screen (Negative) ng/mL Ethyl Alcohol < 10 (0-10) mg/dL Influenza Type A A g (Negative) Influenza Type B A g (Negative) SARS-CoV-2 Ag (Rap id) (Negative) 07/04/20 07/04/20 07/04/20 Range/Units 15:45 15:45 15:45 WBC (4.0-10.0) 10^3/ uL RBC (4.1-5.3) 10^6/u L Hgb (11.5-15.3) g/dL Hct (37.0-47.0) % MCV (81-99) fL MCH (28.0-34.0) pg MCHC (30.0-36.0) g/dL RDW (12.1-15.1) % Plt Count (130-400) 10^3/c mm MPV (7.4-10.4) fL Neut % (Auto) % Lymph % (Auto) % Jerome % (Auto) % Eos % (Auto) % Baso % (Auto) % Neut # (Auto) (1.8-7.7) 10^3/u L Lymph # (Auto) (0.8-4.8) 10^3/u L Jerome # (Auto) (0.2-0.9) 10^3/u L Eos # (Auto) (0.0-0.8) 10^3/u L Baso # (Auto) (0.0-0.1) 10^3/u L Nucleated RBC % (a uto) % Nucleated RBCs # /100WBC D-Dimer (0-0.59) ug/mIFE U Specimen Type Sample Site ABG pH (7.35-7.45) ABG pCO2 (35-45) mmHg ABG pO2 (80.0-100.0) mmH g ABG HCO3 (22-26) mmol/L ABG O2 Saturation ABG Base Excess (-2.0-2.0) mmol/ L Satish Test A-a O2 Gradient (5-10) mmHg Hematocrit (37-47) % Hgb O2 Saturation (95-100) % Carboxyhemoglobin (0.4-20.1) %THgb Methemoglobin (0.4-1.5) % Total Hemoglobin (12-16) g/dL Ionized Calcium (1.1-1.4) mmol/L O2 Delivery Device FiO2 % Principal Automation Engineer ID Sodium Cancelled (136-145) mmol/L Potassium Cancelled (3.5-5.1) mmol/L Chloride Cancelled (98-107) mmol/L Carbon Dioxide Cancelled (22-29) mmol/L Anion Gap Cancelled (5-19) BUN Cancelled (6-20) mg/dL Creatinine Cancelled (0.5-0.9) mg/dL GFR Calculation Cancelled (90-130) mL/min Glucose Cancelled (65-115) mg/dL POC Glucose (70-110) mg/dL Calculated Osmolal ity Cancelled (285-295) mOsm/k g Calcium Cancelled (8.5-10.5) mg/dL Phosphorus Cancelled Magnesium Cancelled Total Bilirubin (0.15-1.2) mg/dL AST (0-32) U/L ALT (0-33) U/L Alkaline Phosphata se (35-105) IU/L Troponin T Baselin e 12 H (0-10) ng/L Troponin T 120 Min little shell tribe (0-10) ng/L Delta Troponin T (0-10) ABS# Total Protein (6.6-8.7) g/dL Albumin (3.5-5.2) g/dL Globulin (1.3-4.6) g/dL Lipase Cancelled TSH 6.71 H (0.27-4.20) uIU/ mL Free T4 Cancelled HCG, Qual (Negative) Urine Color (Yellow) Urine Appearance (CLEAR) Urine pH (5-7) Ur Specific Gravit y (1.005-1.030) Urine Protein (Negative) Urine Glucose (UA) (Normal) Urine Ketones (Negative) Urine Blood (Negative) Urine Nitrate (Negative) Urine Bilirubin (Negative) Urine Urobilinogen (Negative) mg/dL Ur Leukocyte Ashanti ase (Negative) Urine RBC (0-2) /hpf Urine WBC (0-5) /hpf Ur Squamous Epith Cells (0-5) /hpf Amorphous Sediment Urine Bacteria (NONE) /hpf Urine Opiates Scre en (Negative) ng/mL Ur Barbiturates Sc reen (Negative) ng/mL Ur Phencyclidine S crn (Negative) ng/mL Ur Amphetamines Sc reen (Negative) ng/mL U Benzodiazepines Scrn (Negative) ng/mL Urine Cocaine Scre en (Negative) ng/mL U Marijuana (THC) Screen (Negative) ng/mL Ethyl Alcohol (0-10) mg/dL Influenza Type A A g (Negative) Influenza Type B A g (Negative) SARS-CoV-2 Ag (Rap id) (Negative) 07/04/20 07/04/20 07/04/20 Range/Units 16:20 16:20 16:20 WBC (4.0-10.0) 10^3/ uL RBC (4.1-5.3) 10^6/u L Hgb (11.5-15.3) g/dL Hct (37.0-47.0) % MCV (81-99) fL MCH (28.0-34.0) pg MCHC (30.0-36.0) g/dL RDW (12.1-15.1) % Plt Count (130-400) 10^3/c mm MPV (7.4-10.4) fL Neut % (Auto) % Lymph % (Auto) % Jerome % (Auto) % Eos % (Auto) % Baso % (Auto) % Neut # (Auto) (1.8-7.7) 10^3/u L Lymph # (Auto) (0.8-4.8) 10^3/u L Jerome # (Auto) (0.2-0.9) 10^3/u L Eos # (Auto) (0.0-0.8) 10^3/u L Baso # (Auto) (0.0-0.1) 10^3/u L Nucleated RBC % (a uto) % Nucleated RBCs # /100WBC D-Dimer (0-0.59) ug/mIFE U Specimen Type Sample Site ABG pH (7.35-7.45) ABG pCO2 (35-45) mmHg ABG pO2 (80.0-100.0) mmH g ABG HCO3 (22-26) mmol/L ABG O2 Saturation ABG Base Excess (-2.0-2.0) mmol/ L Satish Test A-a O2 Gradient (5-10) mmHg Hematocrit (37-47) % Hgb O2 Saturation (95-100) % Carboxyhemoglobin (0.4-20.1) %THgb Methemoglobin (0.4-1.5) % Total Hemoglobin (12-16) g/dL Ionized Calcium (1.1-1.4) mmol/L O2 Delivery Device FiO2 % Principal Automation Engineer ID Sodium (136-145) mmol/L Potassium (3.5-5.1) mmol/L Chloride (98-107) mmol/L Carbon Dioxide (22-29) mmol/L Anion Gap (5-19) BUN (6-20) mg/dL Creatinine (0.5-0.9) mg/dL GFR Calculation (90-130) mL/min Glucose (65-115) mg/dL POC Glucose (70-110) mg/dL Calculated Osmolal ity (285-295) mOsm/k g Calcium (8.5-10.5) mg/dL Phosphorus Magnesium Total Bilirubin (0.15-1.2) mg/dL AST (0-32) U/L ALT (0-33) U/L Alkaline Phosphata se (35-105) IU/L Troponin T Baselin e (0-10) ng/L Troponin T 120 Min little shell tribe (0-10) ng/L Delta Troponin T (0-10) ABS# Total Protein (6.6-8.7) g/dL Albumin (3.5-5.2) g/dL Globulin (1.3-4.6) g/dL Lipase TSH (0.27-4.20) uIU/ mL Free T4 HCG, Qual Negative (Negative) Urine Color Yellow (Yellow) Urine Appearance Sl hazy (CLEAR) Urine pH 6 (5-7) Ur Specific Gravit y 1.005 (1.005-1.030) Urine Protein Neg (Negative) Urine Glucose (UA) 4+ H (Normal) Urine Ketones Negative (Negative) Urine Blood Trace H (Negative) Urine Nitrate Negative (Negative) Urine Bilirubin Neg (Negative) Urine Urobilinogen Norm (Negative) mg/dL Ur Leukocyte Ashanti ase Negative (Negative) Urine RBC None (0-2) /hpf Urine WBC 25-40 H (0-5) /hpf Ur Squamous Epith Cells 5-10 H (0-5) /hpf Amorphous Sediment Not Reportable Urine Bacteria Trace (NONE) /hpf Urine Opiates Scre en Negative (Negative) ng/mL Ur Barbiturates Sc reen Negative (Negative) ng/mL Ur Phencyclidine S crn Negative (Negative) ng/mL Ur Amphetamines Sc reen Negative (Negative) ng/mL U Benzodiazepines Scrn Negative (Negative) ng/mL Urine Cocaine Scre en Negative (Negative) ng/mL U Marijuana (THC) Screen Negative (Negative) ng/mL Ethyl Alcohol (0-10) mg/dL Influenza Type A A g (Negative) Influenza Type B A g (Negative) SARS-CoV-2 Ag (Rap id) (Negative) 07/04/20 07/04/20 07/04/20 Range/Units 17:30 17:30 17:37 WBC (4.0-10.0) 10^3/ uL RBC (4.1-5.3) 10^6/u L Hgb (11.5-15.3) g/dL Hct (37.0-47.0) % MCV (81-99) fL MCH (28.0-34.0) pg MCHC (30.0-36.0) g/dL RDW (12.1-15.1) % Plt Count (130-400) 10^3/c mm MPV (7.4-10.4) fL Neut % (Auto) % Lymph % (Auto) % Jerome % (Auto) % Eos % (Auto) % Baso % (Auto) % Neut # (Auto) (1.8-7.7) 10^3/u L Lymph # (Auto) (0.8-4.8) 10^3/u L Jerome # (Auto) (0.2-0.9) 10^3/u L Eos # (Auto) (0.0-0.8) 10^3/u L Baso # (Auto) (0.0-0.1) 10^3/u L Nucleated RBC % (a uto) % Nucleated RBCs # /100WBC D-Dimer (0-0.59) ug/mIFE U Specimen Type Arterial Sample Site Radial, left ABG pH 7.46 H (7.35-7.45) ABG pCO2 41.1 (35-45) mmHg ABG pO2 75.5 L (80.0-100.0) mmH g ABG HCO3 29.1 H (22-26) mmol/L ABG O2 Saturation 96.3 ABG Base Excess 4.7 H (-2.0-2.0) mmol/ L Satish Test Pos A-a O2 Gradient 3.2 L (5-10) mmHg Hematocrit 43.0 (37-47) % Hgb O2 Saturation 93.8 L (95-100) % Carboxyhemoglobin 1.8 (0.4-20.1) %THgb Methemoglobin 0.8 (0.4-1.5) % Total Hemoglobin 14.0 (12-16) g/dL Ionized Calcium 1.2 (1.1-1.4) mmol/L O2 Delivery Device Room air FiO2 21.0 % Principal Automation Engineer ID [place] Sodium 126.0 L (136-145) mmol/L Potassium 4.1 (3.5-5.1) mmol/L Chloride (98-107) mmol/L Carbon Dioxide (22-29) mmol/L Anion Gap (5-19) BUN (6-20) mg/dL Creatinine (0.5-0.9) mg/dL GFR Calculation (90-130) mL/min Glucose 653.0 H (65-115) mg/dL POC Glucose (70-110) mg/dL Calculated Osmolal ity (285-295) mOsm/k g Calcium (8.5-10.5) mg/dL Phosphorus Magnesium Total Bilirubin (0.15-1.2) mg/dL AST (0-32) U/L ALT (0-33) U/L Alkaline Phosphata se (35-105) IU/L Troponin T Baselin e (0-10) ng/L Troponin T 120 Min little shell tribe (0-10) ng/L Delta Troponin T (0-10) ABS# Total Protein (6.6-8.7) g/dL Albumin (3.5-5.2) g/dL Globulin (1.3-4.6) g/dL Lipase TSH (0.27-4.20) uIU/ mL Free T4 HCG, Qual (Negative) Urine Color (Yellow) Urine Appearance (CLEAR) Urine pH (5-7) Ur Specific Gravit y (1.005-1.030) Urine Protein (Negative) Urine Glucose (UA) (Normal) Urine Ketones (Negative) Urine Blood (Negative) Urine Nitrate (Negative) Urine Bilirubin (Negative) Urine Urobilinogen (Negative) mg/dL Ur Leukocyte Ashanti ase (Negative) Urine RBC (0-2) /hpf Urine WBC (0-5) /hpf Ur Squamous Epith Cells (0-5) /hpf Amorphous Sediment Urine Bacteria (NONE) /hpf Urine Opiates Scre en (Negative) ng/mL Ur Barbiturates Sc reen (Negative) ng/mL Ur Phencyclidine S crn (Negative) ng/mL Ur Amphetamines Sc reen (Negative) ng/mL U Benzodiazepines Scrn (Negative) ng/mL Urine Cocaine Scre en (Negative) ng/mL U Marijuana (THC) Screen (Negative) ng/mL Ethyl Alcohol (0-10) mg/dL Influenza Type A A g Negative (Negative) Influenza Type B A g Negative (Negative) SARS-CoV-2 Ag (Rap id) Negative (Negative) 07/04/20 07/04/20 07/04/20 Range/Units 17:50 18:22 19:35 WBC (4.0-10.0) 10^3/ uL RBC (4.1-5.3) 10^6/u L Hgb (11.5-15.3) g/dL Hct (37.0-47.0) % MCV (81-99) fL MCH (28.0-34.0) pg MCHC (30.0-36.0) g/dL RDW (12.1-15.1) % Plt Count (130-400) 10^3/c mm MPV (7.4-10.4) fL Neut % (Auto) % Lymph % (Auto) % Jerome % (Auto) % Eos % (Auto) % Baso % (Auto) % Neut # (Auto) (1.8-7.7) 10^3/u L Lymph # (Auto) (0.8-4.8) 10^3/u L Jerome # (Auto) (0.2-0.9) 10^3/u L Eos # (Auto) (0.0-0.8) 10^3/u L Baso # (Auto) (0.0-0.1) 10^3/u L Nucleated RBC % (a uto) % Nucleated RBCs # /100WBC D-Dimer (0-0.59) ug/mIFE U Specimen Type Sample Site ABG pH (7.35-7.45) ABG pCO2 (35-45) mmHg ABG pO2 (80.0-100.0) mmH g ABG HCO3 (22-26) mmol/L ABG O2 Saturation ABG Base Excess (-2.0-2.0) mmol/ L Satish Test A-a O2 Gradient (5-10) mmHg Hematocrit (37-47) % Hgb O2 Saturation (95-100) % Carboxyhemoglobin (0.4-20.1) %THgb Methemoglobin (0.4-1.5) % Total Hemoglobin (12-16) g/dL Ionized Calcium (1.1-1.4) mmol/L O2 Delivery Device FiO2 % Principal Automation Engineer ID Sodium (136-145) mmol/L Potassium (3.5-5.1) mmol/L Chloride (98-107) mmol/L Carbon Dioxide (22-29) mmol/L Anion Gap (5-19) BUN (6-20) mg/dL Creatinine (0.5-0.9) mg/dL GFR Calculation (90-130) mL/min Glucose (65-115) mg/dL POC Glucose 588 H* 381 H (70-110) mg/dL Calculated Osmolal ity (285-295) mOsm/k g Calcium (8.5-10.5) mg/dL Phosphorus Magnesium Total Bilirubin (0.15-1.2) mg/dL AST (0-32) U/L ALT (0-33) U/L Alkaline Phosphata se (35-105) IU/L Troponin T Baselin e (0-10) ng/L Troponin T 120 Min little shell tribe 10.78 H (0-10) ng/L Delta Troponin T -1.22 L (0-10) ABS# Total Protein (6.6-8.7) g/dL Albumin (3.5-5.2) g/dL Globulin (1.3-4.6) g/dL Lipase TSH (0.27-4.20) uIU/ mL Free T4 HCG, Qual (Negative) Urine Color (Yellow) Urine Appearance (CLEAR) Urine pH (5-7) Ur Specific Gravit y (1.005-1.030) Urine Protein (Negative) Urine Glucose (UA) (Normal) Urine Ketones (Negative) Urine Blood (Negative) Urine Nitrate (Negative) Urine Bilirubin (Negative) Urine Urobilinogen (Negative) mg/dL Ur Leukocyte Ashanti ase (Negative) Urine RBC (0-2) /hpf Urine WBC (0-5) /hpf Ur Squamous Epith Cells (0-5) /hpf Amorphous Sediment Urine Bacteria (NONE) /hpf Urine Opiates Scre en (Negative) ng/mL Ur Barbiturates Sc reen (Negative) ng/mL Ur Phencyclidine S crn (Negative) ng/mL Ur Amphetamines Sc reen (Negative) ng/mL U Benzodiazepines Scrn (Negative) ng/mL Urine Cocaine Scre en (Negative) ng/mL U Marijuana (THC) Screen (Negative) ng/mL Ethyl Alcohol (0-10) mg/dL Influenza Type A A g (Negative) Influenza Type B A g (Negative) SARS-CoV-2 Ag (Rap id) (Negative) 07/04/20 Range/Units 20:31 WBC (4.0-10.0) 10^3/ uL RBC (4.1-5.3) 10^6/u L Hgb (11.5-15.3) g/dL Hct (37.0-47.0) % MCV (81-99) fL MCH (28.0-34.0) pg MCHC (30.0-36.0) g/dL RDW (12.1-15.1) % Plt Count (130-400) 10^3/c mm MPV (7.4-10.4) fL Neut % (Auto) % Lymph % (Auto) % Jerome % (Auto) % Eos % (Auto) % Baso % (Auto) % Neut # (Auto) (1.8-7.7) 10^3/u L Lymph # (Auto) (0.8-4.8) 10^3/u L Jerome # (Auto) (0.2-0.9) 10^3/u L Eos # (Auto) (0.0-0.8) 10^3/u L Baso # (Auto) (0.0-0.1) 10^3/u L Nucleated RBC % (a uto) % Nucleated RBCs # /100WBC D-Dimer (0-0.59) ug/mIFE U Specimen Type Sample Site ABG pH (7.35-7.45) ABG pCO2 (35-45) mmHg ABG pO2 (80.0-100.0) mmH g ABG HCO3 (22-26) mmol/L ABG O2 Saturation ABG Base Excess (-2.0-2.0) mmol/ L Satish Test A-a O2 Gradient (5-10) mmHg Hematocrit (37-47) % Hgb O2 Saturation (95-100) % Carboxyhemoglobin (0.4-20.1) %THgb Methemoglobin (0.4-1.5) % Total Hemoglobin (12-16) g/dL Ionized Calcium (1.1-1.4) mmol/L O2 Delivery Device FiO2 % Principal Automation Engineer ID Sodium (136-145) mmol/L Potassium (3.5-5.1) mmol/L Chloride (98-107) mmol/L Carbon Dioxide (22-29) mmol/L Anion Gap (5-19) BUN (6-20) mg/dL Creatinine (0.5-0.9) mg/dL GFR Calculation (90-130) mL/min Glucose (65-115) mg/dL POC Glucose 216 H (70-110) mg/dL Calculated Osmolal ity (285-295) mOsm/k g Calcium (8.5-10.5) mg/dL Phosphorus Magnesium Total Bilirubin (0.15-1.2) mg/dL AST (0-32) U/L ALT (0-33) U/L Alkaline Phosphata se (35-105) IU/L Troponin T Baselin e (0-10) ng/L Troponin T 120 Min little shell tribe (0-10) ng/L Delta Troponin T (0-10) ABS# Total Protein (6.6-8.7) g/dL Albumin (3.5-5.2) g/dL Globulin (1.3-4.6) g/dL Lipase TSH (0.27-4.20) uIU/ mL Free T4 HCG, Qual (Negative) Urine Color (Yellow) Urine Appearance (CLEAR) Urine pH (5-7) Ur Specific Gravit y (1.005-1.030) Urine Protein (Negative) Urine Glucose (UA) (Normal) Urine Ketones (Negative) Urine Blood (Negative) Urine Nitrate (Negative) Urine Bilirubin (Negative) Urine Urobilinogen (Negative) mg/dL Ur Leukocyte [place] ase (Negative) Urine RBC (0-2) /hpf Urine WBC (0-5) /hpf Ur Squamous Epith Cells (0-5) /hpf Amorphous Sediment Urine Bacteria (NONE) /hpf Urine Opiates Scre en (Negative) ng/mL Ur Barbiturates Sc reen (Negative) ng/mL Ur Phencyclidine S crn (Negative) ng/mL Ur Amphetamines Sc reen (Negative) ng/mL U Benzodiazepines Scrn (Negative) ng/mL Urine Cocaine Scre en (Negative) ng/mL U Marijuana (THC) Screen (Negative) ng/mL Ethyl Alcohol (0-10) mg/dL Influenza Type A A g (Negative) Influenza Type B A g (Negative) SARS-CoV-2 Ag (Rap id) (Negative) Discharge Plan Discharge Patient Disposition: Admitted As Inpatient Admit Provider: Cristel Brock Clinical Impression: Uncontrolled diabetes mellitus, Acute hyperglycemia Condition: Stable Coding Level of Care Code 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
[2020-07-04 16:24] LABS: Basophils # 0.1 10^3/uL (0.0-0.1); Basophils % 0.5 %; Eosinophils % 0.2 %; Hematocrit 45.9 % (37.0-47.0); Hemoglobin 16.4 g/dL (11.5-15.3); Lymphocytes # 2.1 10^3/uL (0.8-4.8); Lymphocytes % 12.7 %; Mean Corpuscular HGB Conc 35.7 g/dL (30.0-36.0); Mean Corpuscular Hemoglobin 30.8 pg (28.0-34.0); Mean Corpuscular Volume 86.1 fL (81-99); Mean Platelet Volume 9.5 fL (7.4-10.4); Monocytes # 1.5 10^3/uL (0.2-0.9); Monocytes % 8.9 %; Neutrophils # 12.96 10^3/uL (1.8-7.7); Neutrophils % 77.2 %; Nucleated Red Blood Cells % 0 %; Platelet Count 381 10^3/cmm (130-400); Red Blood Count 5.33 10^6/uL (4.1-5.3); Red Cell Distribution Width 11.7 % (12.1-15.1); White Blood Count 16.8 10^3/uL (4.0-10.0)
--- NOTE | 2020-07-04 16:30 | PC.PHAR ---
PT STATES SHE IS SUPPOSE TO BE TAKING LEVEMIR AND LEVOTHYROXINE BUT HASNT HAD THE MONEY TO GET-PT STATES SHE HASNT TAKEN FOR A MONTH
[2020-07-04 16:45] LABS: D Dimer 0.44 ug/mIFEU (0-0.59)
[2020-07-04 16:57] LABS: HCG Qualitative Urine. Negative (Negative)
[2020-07-04 17:00] LABS: Add Urine Microscopic? YES; Bilirubin Urine Neg (Negative); Blood Urine Trace (Negative); Glucose Urine UA 4+ (Normal); Ketones Urine Negative (Negative); Leukocyte Esterase Urine Negative (Negative); Nitrate Urine Negative (Negative); Protein Urine Neg (Negative); Specific Gravity, Urine 1.005 (1.005-1.030); Urine Appearance SL Hazy (CLEAR); Urine Color Yellow (Yellow); Urobilinogen Urine Norm (Negative); pH Urine 6 (5-7)
[2020-07-04 17:01] LABS: Alanine Aminotransferase 105 U/L (0-33); Albumin Level 4.2 g/dL (3.5-5.2); Alkaline Phosphatase 151 IU/L (35-105); Aspartate Amino Transferase 47 U/L (0-32); Blood Urea Nitrogen 23 mg/dL (6-20); Calcium 9.5 mg/dL (8.5-10.5); Carbon Dioxide 27 mmol/L (22-29); Chloride 78 mmol/L (98-107); Globulin 3.2 g/dL (1.3-4.6); Glomerular Filtration Rate 107.6 mL/min (90-130); Total Bilirubin 0.6 mg/dL (0.15-1.2); Total Protein 7.4 g/dL (6.6-8.7)
[2020-07-04 17:02] LABS: Troponin(5th) Baseline 12 ng/L (0-10)
[2020-07-04 17:02] LABS: Amphetamines Screen Urine Negative (Negative); Barbiturates Screen Urine Negative (Negative); Benzodiazepines Screen Urine Negative (Negative); Cocaine Screen Urine Negative (Negative); Opiate Screen Urine Negative (Negative); PCP Screen Urine Negative (Negative); THC Screen Urine Negative (Negative)
[2020-07-04 17:04] LABS: Bacteria Urine TRACE /hpf; WBC Urine 25-40 /hpf (0-5)
[2020-07-04 17:06] LABS: Add Urine Culture? No
[2020-07-04 17:11] LABS: Alcohol Level < 10 mg/dL (0-10)
[2020-07-04 17:12] LABS: Osmolality Calculated 290 mOsm/kg (285-295)
[2020-07-04 17:14] LABS: Sodium 118 mmol/L (136-145)
[2020-07-04 17:15] LABS: Glucose 823 mg/dL (65-115)
[2020-07-04] MEDS: insulin regular-human 100 units/1 mL 10 UNIT IVP (17:21)
[2020-07-04] MEDS: sodium chloride 0.9% 1,000 ML 999 ML IV ×2 (17:22→18:27)
[2020-07-04 17:50] LABS: ABG PCO2 41.1 mmHg (35-45); ABG PH Result 7.46 (7.35-7.45); Alveolar-Arterial Oxygen Gradi 3.2 mmHg (5-10); Base Excess ABG 4.7 mmol/L (-2.0-2.0); Blood Gas Allen Test Pos; Blood Gas Operator Identificat MONRO; Blood Gas Sample Site Radial, left; Blood Gas Sample Type Arterial; Carboxyhemoglobin 1.8 %THgb (0.4-20.1); HCO3 ABG 29.1 mmol/L (22-26); HGB O2 Sat 93.8 % (95-100); Ionized Calcium Level - ABG 1.2 mmol/L (1.1-1.4); Methemoglobin 0.8 % (0.4-1.5); Oxygen Device ROOM AIR; Oxygen Saturation ABG 96.3; PO2 ABG 75.5 mmHg (80.0-100.0); Potassium Level - ABG 4.1 mmol/L (3.5-5.0)
[2020-07-04 18:09] LABS: Thyroid Stimulating Hormone 6.71 uIU/mL (0.27-4.20)
--- NOTE | 2020-07-04 18:11 | ECG_ITS ---
[facility] Test Date: 2020-07-04 Pat Name: Mena Zelaya Department: Room: Gender: Female Specimen Technician: : 1975 Requested By: Julius Noriega Order Number: [id number] Zoraida MD: Ba Cyr M.D. Measurements Intervals [place] Rate: 103 P: 52 MT: 152 QRS: 22 QRSD: 82 T: 49 QT: 330 QTc: 432 Interpretive Statements SINUS TACHYCARDIA NONSPECIFIC T-WAVE ABNORMALITY ABNORMAL RHYTHM ECG Compared to ECG 07/04/2020 16:21:31 T-wave abnormality now present Electronically Signed On 07-04-2020 19:37:03 BIOMEDICAL INSTRUMENT TECHNICIAN by Ba Cyr M.D. [email or web address] defiance regional hospitalJail Education Solutions/store/[id number]
[2020-07-04 18:19] LABS: Troponin 5 2HR 10.78 ng/L (0-10)
[2020-07-04 18:24] LABS: Troponin 5 2HR Delta -1.22 ABS# (0-10)
[2020-07-04] MEDS: insulin regular-human 250 UNIT in sodium chloride 0.9% 250 ML 15 UNIT IV (18:26)
[2020-07-04 18:30] LABS: Influenza A by IFA Negative (Negative); Influenza B by IFA Negative (Negative); SARS Covid-2 Antigen Negative (Negative)
[2020-07-04 18:32] LABS: Glucose Point of Care 588 mg/dL (70-110)
[2020-07-04] MEDS: promethazine 25 mg/mL SDV 1 mL IM (19:18)
[2020-07-04 20:35] LABS: Glucose Point of Care 216 mg/dL (70-110)
[2020-07-04 20:35] LABS: Glucose Point of Care 381 mg/dL (70-110)
--- NOTE | 2020-07-04 20:41 | P.HP_ITS ---
Providers/Chief Complaint Admitting Physician: olvin Brock Primary Care Provider: none Chief Complaint: CP / N/V History of Present Illness Mena Zelaya is a 44 year old female who presented to the emergency room chest discomfort and nausea and vomiting. Chest pain has been intermittent, severe, rated at a 7 out of 10. Located in the left chest in the center of the chest. Nothing is seem to really make it better nor particularly worse. She came via EMS and did receive aspirin and nitroglycerin and only came down to a 6. She also complained of some right-sided chest pain. She has had a previous episode of SVT back in April of last year. She received 1 dose of adenosine with conversion to sinus rhythm. She gets worried when she starts having chest pain that she may be starting to have SVT again. She does describe intermittent palpitations but usually they are short-lived. She has had nausea with several episodes of vomiting, no blood in her vomitus. She has been out of medications for her diabetes for several years . She did receive a prescription back in April but I am not sure if she filled it or if she is just run out of that one-time prescription. She was found to have blood sugars over 800. She was treated with insulin drip in the emergency room and sugars have dropped down to 200s. Review of Systems Const: Reports: fever(s), chills, body aches, change in appetite and fatigue; Denies: night sweats Eyes: Reports: blurry vision (nights, without glasses) ENMT: Reports: throat pain and nasal congestion Card: Reports: chest pain and palpitations; Denies: edema Resp: Denies: dyspnea, productive cough or non-productive cough GI: Reports: abdominal pain, nausea, vomiting, diarrhea, constipation and o ther (darker than usual); Denies: hematochezia : Reports: flank pain and dysuria; Denies: difficulty voiding Musc: Reports: back pain (low on right to leg, worse at night) and extremity pain Skin/Breast: Reports: other (blister right great toe); Denies: rash or pruritus Neuro: Reports: headache(s), numbness in extremities (neuropathy) and dizziness; Denies: weakness in extremities, frequent falls, confusion or seizure-like activity Psych: Reports: anxiety; Denies: depression Valentino/Lymph: Denies: easy bruising or easy bleeding Medications/Allergies Home Medications Medication Instructions Recorded Confirmed Last Taken Type acetaminophen [Tylenol Extra 1,000 mg PO PRN 07/04/20 07/04/20 07/03/20 History Strength] Allergies Allergy/AdvReac Type Severity Reaction Status Date / Time amoxicillin AdvReac yeast infx Verified 07/04/20 16:30 PFSH Acute PFSH: Medical History (Updated 07/05/20 @ 07:43 by Cristel Brock MD) Anxiety Chronic bronchitis Diabetes initially gestational age ~24, persisted and diagnosed as Type II diabetes, obese at onset, no change with weight loss Dyslipidemia Hepatitis C 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, s/p treatment with interferon in ~ 1999 by Eddie 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 History of MRSA infection diabetic wounds Marijuana use JOSE (obstructive sleep apnea) per sleep study 2010, CPAP of 13 recommended at that time, no longer with machine Supraventricular tachycardia (~04/2020) identified during ED visit 04/2020, treated with 6mg adenosine with conversio n to sinus Surgical History (Updated 07/04/20 @ 20:53 by Cristel Brock MD) History of hysterectomy (~2011) also Kimberly urethral plication History of incision and drainage (~2013) right upper extremity and R lower extremity History of tubal ligation History of umbilical hernia repair (~2011) Family History (Updated 07/04/20 @ 21:42 by Cristel Brock MD) Father Diabetes Mother Diabetes Grandfather Pacemaker Denies family history of Stroke Social History (Updated 07/04/20 @ 21:43 by Cristel Brock MD) Smoking and tobacco status: current every day smoker cigarettes Number of cigarettes per day: 11-20 Alcohol intake: never Substance/Drug Use: current Substance/Drug use frequency: few times a month Substance/Drug use type: Marijuana Vitals/I&O/Wt Last Vital Signs Pulse 93 07/04/20 19:30 Resp 17 07/04/20 19:30 BP 106/63 07/04/20 19:30 Pulse Ox 98 07/04/20 19:30 07/04/20 07/04/20 07/04/20 06:59 14:59 22:59 Intake Total 1000 / 1000 Balance 1000 / 1000 Weight last 48 hrs Weight 54.431 kg Physical Exam Const: OTHER: Alert, oriented x3, thin build, restless due to discomfort HENMT: OTHER: Normocephalic, mild bitemporal wasting, hyperpigmentation around both eyes, nasopharynx is clear oropharynx edentulous, mucous membranes dry Eye: OTHER: Pupils equally round and reactive to light, muddy sclera Neck/C-Spine: OTHER: Supple Resp: OTHER: Occasional wheeze equal breath sounds bilaterally Cardio: OTHER: Regular rate and rhythm, not currently tachycardic GI: OTHER: Abdomen soft, somewhat general tenderness without any rebound or guarding, positive bowel sounds : OTHER: Normal external genitalia Extremity: NARRATIVE EXTREMITY EXAM: No pitting edema. Some clubbing is noted of digits. No acute synovitis. Tenderness of much of the extremities though no focals areas of warmth, redness or sores beyond that noted to the right foot Neuro: OTHER: Face symmetric, speech clear, moves all extremities, restless Psych: OTHER: Anxious but cooperative Skin: OTHER: Patient had a serous blister encompassing the distal portion of the right great toe more medially than laterally. It is approximately 2-1/2 cm x 1-1/2 cm in diameter. The base of the blister had some erythema and purplish discoloration and a thin line a couple of millimeters half-steinberg. The toe was tender to touch. No streaking was noted. The blister was very tense and decision was made to drain it. I cleansed the area with Betadine swabs followed by alcohol. Allowed to dry and inserted a sterile 22-gauge needle into the bulla approximately 3 mm. No anesthesia was used. She tolerated well. Approximately 1 teaspoon of serous fluid was drained. A loose dressing was wrapped around the toe. The ball of the foot, there is some dried skin for which I do not see any underlying sores. Left foot is clear of wounds. Data : 07/05/20 06:12 07/05/20 06:12 Other Labs: Laboratory Last Values WBC 16.8 10^3/uL (4.0-10.0) H 07/04/20 15:45 RBC 5.33 10^6/uL (4.1-5.3) H 07/04/20 15:45 Hgb 16.4 g/dL (11.5-15.3) H 07/04/20 15:45 Hct 45.9 % (37.0-47.0) 02/13/21 15:45 MCV 86.1 fL (81-99) 07/04/20 15:45 MCH 30.8 pg (28.0-34.0) 07/04/20 15:45 MCHC 35.7 g/dL (30.0-36.0) 07/04/20 15:45 RDW 11.7 % (12.1-15.1) L 07/04/20 15:45 Plt Count 381 10^3/cmm (130-400) 07/04/20 15:45 MPV 9.5 fL (7.4-10.4) 07/04/20 15:45 Neut % (Auto) 77.2 % 07/04/20 15:45 Lymph % (Auto) 12.7 % 07/04/20 15:45 Rogers % (Auto) 8.9 % 07/04/20 15:45 Eos % (Auto) 0.2 % 07/04/20 15:45 Baso % (Auto) 0.5 % 07/04/20 15:45 Neut # (Auto) 12.96 10^3/uL (1.8-7.7) H 07/04/20 15:45 Lymph # (Auto) 2.1 10^3/uL (0.8-4.8) 07/04/20 15:45 Rogers # (Auto) 1.5 10^3/uL (0.2-0.9) H 07/04/20 15:45 Eos # (Auto) 0.0 10^3/uL (0.0-0.8) 07/04/20 15:45 Baso # (Auto) 0.1 10^3/uL (0.0-0.1) 07/04/20 15:45 Nucleated RBC % (auto) 0 % 07/04/20 15:45 Nucleated RBCs # 0.0 /100WBC 07/04/20 15:45 D-Dimer 0.44 ug/mIFEU (0-0.59) 07/04/20 15:45 Specimen Type Arterial 07/04/20 17:37 Sample Site Radial, left 07/04/20 17:37 ABG pH 7.46 (7.35-7.45) H 07/04/20 17:37 ABG pCO2 41.1 mmHg (35-45) 07/04/20 17:37 ABG pO2 75.5 mmHg (80.0-100.0) L 07/04/20 17:37 ABG HCO3 29.1 mmol/L (22-26) H 07/04/20 17:37 ABG O2 Saturation 96.3 07/04/20 17:37 ABG Base Excess 4.7 mmol/L (-2.0-2.0) H 07/04/20 17:37 Satish Test Pos 07/04/20 17:37 A-a O2 Gradient 3.2 mmHg (5-10) L 07/04/20 17:37 Hematocrit 43.0 % (37-47) 07/04/20 17:37 Hgb O2 Saturation 93.8 % (95-100) L 07/04/20 17:37 Carboxyhemoglobin 1.8 %THgb (0.4-20.1) 07/04/20 17:37 Methemoglobin 0.8 % (0.4-1.5) 07/04/20 17:37 Total Hemoglobin 14.0 g/dL (12-16) 07/04/20 17:37 Sodium 126.0 mmol/L (131-143) L 07/04/20 17:37 Potassium 4.1 mmol/L (3.5-5.0) 07/04/20 17:37 Glucose 653.0 mg/dL (70-115) H 07/04/20 17:37 Ionized Calcium 1.2 mmol/L (1.1-1.4) 07/04/20 17:37 O2 Delivery Device Room air 07/04/20 17:37 FiO2 21.0 % 07/04/20 17:37 Extension Service Specialist ID Monro 07/04/20 17:37 Sodium 118 mmol/L (136-145) L* 07/04/20 15:45 Potassium 5.0 mmol/L (3.5-5.1) 07/04/20 15:45 Chloride 78 mmol/L (98-107) L 07/04/20 15:45 Carbon Dioxide 27 mmol/L (22-29) 07/04/20 15:45 Anion Gap 18.0 (5-19) 07/04/20 15:45 BUN 23 mg/dL (6-20) H 07/04/20 15:45 Creatinine 0.6 mg/dL (0.5-0.9) 07/04/20 15:45 GFR Calculation 107.6 mL/min (90-130) 07/04/20 15:45 Glucose 823 mg/dL (65-115) H* 07/04/20 15:45 POC Glucose 216 mg/dL (70-110) H 07/04/20 20:31 Calculated Osmolality 290 mOsm/kg (285-295) 07/04/20 15:45 Calcium 9.5 mg/dL (8.5-10.5) 07/04/20 15:45 Total Bilirubin 0.6 mg/dL (0.15-1.2) 07/04/20 15:45 AST 47 U/L (0-32) H 07/04/20 15:45 ALT 105 U/L (0-33) H 07/04/20 15:45 Alkaline Phosphatase 151 IU/L (35-105) H 07/04/20 15:45 Troponin T Baseline 12 ng/L (0-10) H 07/04/20 15:45 Troponin T 120 Minute 10.78 ng/L (0-10) H 07/04/20 17:50 Delta Troponin T -1.22 ABS# (0-10) L 07/04/20 17:50 Total Protein 7.4 g/dL (6.6-8.7) 07/04/20 15:45 Albumin 4.2 g/dL (3.5-5.2) 07/04/20 15:45 Globulin 3.2 g/dL (1.3-4.6) 07/04/20 15:45 TSH 6.71 uIU/mL (0.27-4.20) H 07/04/20 15:45 HCG, Qual Negative (Negative) 07/04/20 16:20 Urine Color Yellow (Yellow) 07/04/20 16:20 Urine Appearance Sl hazy (CLEAR) 07/04/20 16:20 Urine pH 6 (5-7) 07/04/20 16:20 Ur Specific [place] 1.005 (1.005-1.030) 07/04/20 16:20 Urine Protein Neg (Negative) 07/04/20 16:20 Urine Glucose (UA) 4+ (Normal) H 07/04/20 16:20 Urine Ketones Negative (Negative) 07/04/20 16:20 Urine Blood Trace (Negative) H 07/04/20 16:20 Urine Nitrate Negative (Negative) 07/04/20 16:20 Urine Bilirubin Neg (Negative) 07/04/20 16:20 Urine Urobilinogen Norm mg/dL (Negative) 07/04/20 16:20 Ur Leukocyte Esterase Negative (Negative) 07/04/20 16:20 Urine RBC None /hpf (0-2) 07/04/20 16:20 Urine WBC 25-40 /hpf (0-5) H 07/04/20 16:20 Ur Squamous Epith Cells 5-10 /hpf (0-5) H 07/04/20 16:20 Amorphous Sediment Not Reportable 07/04/20 16:20 Urine Bacteria Trace /hpf (NONE) 07/04/20 16:20 Urine Opiates Screen Negative ng/mL (Negative) 07/04/20 16:20 Ur Barbiturates Screen Negative ng/mL (Negative) 07/04/20 16:20 Ur Phencyclidine Scrn Negative ng/mL (Negative) 07/04/20 16:20 Ur Amphetamines Screen Negative ng/mL (Negative) 07/04/20 16:20 U Benzodiazepines Scrn Negative ng/mL (Negative) 07/04/20 16:20 Urine Cocaine Screen Negative ng/mL (Negative) 07/04/20 16:20 U Marijuana (THC) Screen Negative ng/mL (Negative) 07/04/20 16:20 Ethyl Alcohol < 10 mg/dL (0-10) 07/04/20 15:45 Influenza Type A Ag Negative (Negative) 07/04/20 17:30 Influenza Type B Ag Negative (Negative) 07/04/20 17:30 SARS-CoV-2 Ag (Rapid) Negative (Negative) 07/04/20 17:30 A&P Assessment and plan (1) Uncontrolled diabetes mellitus: With initial blood sugars over 800. Had associated uremia, hypochloremia, evidence of dehydration but no evidence of diabetic ketoacidosis. Status: Acute Qualifiers: Diabetes mellitus type: type 2 Glycemic state: with hyperglycemia Qualified Code(s): E11.65 - Type 2 diabetes mellitus with hyperglycemia (2) Abnormal urinalysis: Suggestive of a contaminated specimen though she does complain of pain at the end of urination Status: Acute (3) Leukocytosis: Could be reactive secondary to degree of hyperglycemia but cannot rule out relation to infection presently. Status: Acute Qualifiers: Leukocytosis type: unspecified Qualified Code(s): D72.829 - Elevated white blood cell count, unspecified (4) Blister of toe of right foot: Concerning for either developing her underlying diabetic wound Status: Acute Qualifiers: Encounter type: initial encounter Qualified Code(s): S90.424A - Blister (nonthermal), right lesser toe(s), initial encounter (5) Elevated transaminase level: In a patient with a history of hepatitis C status post remote treatment Status: Acute (6) Hypothyroidism: Not taking any treatment currently Status: Chronic Qualifiers: Hypothyroidism type: unspecified Qualified Code(s): E03.9 - Hypothyroidism, unspecified (7) Chronic bronchitis: Not acute Status: Chronic (8) Nicotine dependence, cigarettes, uncomplicated: Status: Chronic (9) Anxiety: Status: Chronic (10) Under or uninsured: Impacting ability to regularly get medications Status: Acute Additional A&P Information Observation admission Change to subcutaneous insulin, both long and short acting Will need prescriptions for insulin at discharge Check hemoglobin A1c in the morning Check lipid panel for risk stratification Check free T4 Start on levothyroxine Follow-up culture from right great toe Monitor right great toe for clinical changes Keep right lower extremity elevated Recheck white count in the morning Check sed rate and CRP Plain films of the right foot I have held antibiotics presently though if any extension of abnormalities to right great toe will institute Blood cultures have been ordered Arterial Doppler of the right lower extremity Breathing treatments if needed Patient declined nicotine patch Lovenox for DVT prophylaxis Supportive care otherwise Plans were discussed with patient and she was given an opportunity to ask questions Attestations Medical Necessity Statement*: Currently anticipated stay less than 2 midnights in a patient not taking any treatment for her diabetes who was found to have a blood sugar of 800. With treatment initiated in the emergency room blood sugars are already down to the 200s. With current levels anticipate should be able to discharge with outpatient follow-up tomorrow, as long as her right great toe and some pending studies do not indicate need to otherwise continue inpatient care Coding Level of Care Code Acute Tank Wagon Operator for Esperanza Hernandez Diagnoses Uncontrolled diabetes mellitus E11.65 Diabetes mellitus type: type 2 Glycemic state: with hyperglycemia Abnormal urinalysis R82.90 Leukocytosis D72.829 Leukocytosis type: unspecified Blister of toe of right foot S90.424A Encounter type: initial encounter Elevated transaminase level R74.01 Hypothyroidism E03.9 Hypothyroidism type: unspecified Chronic bronchitis J42 Nicotine dependence, cigarettes, uncomplicated F17.210 Anxiety F41.9 Under or uninsured Z59.8
--- NOTE | 2020-07-04 20:45 | PC.NURSE ---
Patient finger stick blood sugar 216. Physician notified, physician verbal order to stop insulin drip and monitor.
[2020-07-04 21:19] LABS: Glucose Point of Care 172 mg/dL (70-110)
[2020-07-04 22:02] LABS: Glucose Point of Care 199 mg/dL (70-110)
[2020-07-04 22:02] LABS: Glucose Point of Care 267 mg/dL (70-110)
--- NOTE | 2020-07-04 22:11 | ECG_ITS ---
[facility] Test Date: 2020-07-04 Pat Name: Mena Zelaya Department: Room: 278 Gender: Female Multimedia Project Manager: : 1975 Requested By: Julius Noriega Order Number: [id number] Zoraida MD: Ba Cyr M.D. Measurements Intervals [place] Rate: 103 P: 63 NM: 154 QRS: 36 QRSD: 68 T: 58 QT: 333 QTc: 437 Interpretive Statements SINUS TACHYCARDIA ABNORMAL RHYTHM ECG Compared to ECG 07/04/2020 18:56:58 T-wave abnormality no longer present Electronically Signed On 07-05-2020 15:22:36 BRAKE ENGINEER by Ba Cyr M.D. [email or web address] medical centerTopixprotestant hospitalAkvolution/store/OM/[id number]
[2020-07-04 22:12] LABS: Troponin 5 6HR 6.71 ng/L (0-10)
[2020-07-04 22:15] LABS: Troponin 5 6HR Delta -5.29 ng/L (0-12)
[2020-07-04 22:50] LABS: Blood Urea Nitrogen 14 mg/dL (6-20); Calcium 8.2 mg/dL (8.5-10.5); Carbon Dioxide 22 mmol/L (22-29); Chloride 91 mmol/L (98-107); Free T4 Free Thyroxine 1.01 ng/dL (0.82-1.77); Glomerular Filtration Rate 239.5 mL/min (90-130); Glucose 177 mg/dL (65-115); Lipase 55 U/L (13-60); Magnesium 1.8 mg/dL (1.7-2.3); Osmolality Calculated 261 mOsm/kg (285-295); Phosphorus 2.6 mg/dL (2.5-4.5); Sodium 123 mmol/L (136-145)
[2020-07-04 22:51] LABS: Anion Gap 14.1 (5-19); Potassium 4.1 mmol/L (3.5-5.1)
[2020-07-04] MEDS: fluconazole 100 mg Tablet 150 MG PO (22:52)
[2020-07-04] MEDS: enoxaparin 40 mg/0.4 mL Syringe SUBCUT (22:52)
[2020-07-04] MEDS: insulin glargine 100 units/1 mL 5 UNIT SUBCUT (23:00)
[2020-07-04] MEDS: TRAMadol 50 mg Tablet PO (23:01)
[2020-07-04] MEDS: sodium chloride 0.9% 1,000 ML 125 ML IV (23:02)
[2020-07-04] MEDS: trazodone 50 mg Tablet PO (23:43)
[2020-07-05] VITALS (7 sets, daily range): BP systolic 103–124; BP diastolic 64–80; PULSE 87–111; RESP 16–18; TEMP 36.5–37.7; O2SAT 96–99
--- NOTE | 2020-07-05 00:15 | PC.NURSE ---
Arrival: Pt arrived to the floor, A&O X4 but apears to be in pain and anxious. Evening medications given along with sleep aid as requested. IVF running. Foot of the bed elevated and right toe dressing changed, blister noted to lateral right, great toe with no drainage at this time. 2X2 and kerlex applied. Oriented the pt to the room and call light is within reach.
[2020-07-05 02:08] LABS: Glucose Point of Care 402 mg/dL (70-110)
--- NOTE | 2020-07-05 06:00 | USCV_ITS ---
Mena Zelaya Age: 44 Gender: F : 1975 Exam Date: 07/05/2020 09:15 Ordering Phys: Cristel Brock MD Technologist: Majo Hernandez Exam Location: [facility] [place] Indication: BLISTER 1ST TOE RT FOOT. Risk Factors: DM AND SMOKER Previous Vascular Surgery: NONE PER PT RIGHT LEFT BP: 106.0 / 69.00 BP: 101.0/ 68.00 0 0 Waveform Velocity (cm/s) Velocity (cm/s) Waveform Triphasic 81.6 Iliac Prox Triphasic 122.3 Iliac Mid Triphasic 87.8 Iliac Distal Triphasic 57.7 MOLDING AND TRIM INSTALLER Triphasic 87.5 SFA Prox Triphasic 57.7 SFA Mid Triphasic 74.0 SFA Dist Triphasic 51.9 POP Triphasic 55.7 PRESCHOOL SUBSTITUTE TEACHER Triphasic 50.0 DPA 0.8 ADELINA FINDINGS RT DPA 70 RT PRESCHOOL SUBSTITUTE TEACHER 80 Diminished resting ADELINA of 0.8 Normal Doppler flow signals CONCLUSIONS Abnormal resting ADELINA with normal Doppler waveforms in the right lower extremity Features may suggest extrinsic compression of the arteries/vasospastic conditions. Clinical correlation is recommended Dr Ba Cyr MD FAC (Electronically Signed) Final Date: 05 July 2020 13:21 S
[2020-07-05] MEDS: sodium chloride 0.9% 1,000 ML 125 ML IV ×3 (06:02→23:58)
[2020-07-05 06:40] LABS: Glucose Point of Care 317 mg/dL (70-110)
[2020-07-05 06:45] LABS: Basophils # 0.1 10^3/uL (0.0-0.1); Basophils % 0.5 %; Eosinophils # 0.1 10^3/uL (0.0-0.8); Eosinophils % 0.9 %; Hematocrit 38.2 % (37.0-47.0); Hemoglobin 13.5 g/dL (11.5-15.3); Lymphocytes # 2.4 10^3/uL (0.8-4.8); Lymphocytes % 18.8 %; Mean Corpuscular HGB Conc 35.3 g/dL (30.0-36.0); Mean Corpuscular Hemoglobin 30.7 pg (28.0-34.0); Mean Corpuscular Volume 86.8 fL (81-99); Monocytes # 1.4 10^3/uL (0.2-0.9); Monocytes % 10.9 %; Neutrophils # 8.79 10^3/uL (1.8-7.7); Neutrophils % 68.3 %; Nucleated Red Blood Cells % 0 %; Platelet Count 327 10^3/cmm (130-400); Red Cell Distribution Width 11.7 % (12.1-15.1); White Blood Count 12.9 10^3/uL (4.0-10.0)
[2020-07-05 07:12] LABS: Alanine Aminotransferase 83 U/L (0-33); Albumin Level 3.2 g/dL (3.5-5.2); Alkaline Phosphatase 85 IU/L (35-105); Anion Gap 12.2 (5-19); Aspartate Amino Transferase 56 U/L (0-32); Blood Urea Nitrogen 11 mg/dL (6-20); C Reactive Protein 35.1 mg/L (0.0-4.9); Calcium 8.6 mg/dL (8.5-10.5); Carbon Dioxide 26 mmol/L (22-29); Chloride 94 mmol/L (98-107); Chol HDL Ratio 4.64 mg/dL (0.0-4.40); Cholesterol 153 mg/dL (0-200); Globulin 2.9 g/dL (1.3-4.6); Glomerular Filtration Rate 171.8 mL/min (90-130); Glucose 297 mg/dL (65-115); HDL Cholesterol 33 mg/dL (60-100); LDL Cholesterol Calculated 85 mg/dL (50-129); LDL HDL Ratio 2.58 RATIO (0.00-3.22); Magnesium 1.7 mg/dL (1.7-2.3); Osmolality Calculated 276 mOsm/kg (285-295); Phosphorus 2.6 mg/dL (2.5-4.5); Potassium 4.2 mmol/L (3.5-5.1); Sodium 128 mmol/L (136-145); Total Bilirubin 0.4 mg/dL (0.15-1.2); Total Protein 6.1 g/dL (6.6-8.7); Triglycerides 175 mg/dL (0-150)
[2020-07-05 07:30] LABS: Estmated Average Glucose 355
[2020-07-05 07:31] LABS: Hepatitis C Virus Antibody Reactive (Nonreactive)
--- NOTE | 2020-07-05 08:00 | XRR_ITS ---
PROCEDURE INFORMATION: Exam: XR Right Foot Exam date and time: 07/04/2020 10:30 PM Age: 44 years old Clinical indication: Pain; Foot; Right; Additional info: Right great toe blister, diabetes, pain out of proportion TECHNIQUE: Imaging protocol: XR Right foot. Views: 3 or more views. COMPARISON: No relevant prior studies available. FINDINGS: Bones/joints: No fracture, dislocation or other acute bone or joint abnormalities are seen. There is a small plantar calcaneal spur. No destructive or erosive changes are present. Soft tissues: Normal. XR/XR foot RT min 3V* [id number] IMPRESSION: No acute abnormalities are seen.
[2020-07-05 08:25] LABS: INR 1.12 (0.8-1.2)
[2020-07-05 09:06] LABS: Erythrocyte Sedimentation Rate 44 mm/hr (0-15)
[2020-07-05] MEDS: famotidine 20 mg Tablet PO ×2 (09:34→17:47)
[2020-07-05 11:00] LABS: Glucose Point of Care 412 mg/dL (70-110)
[2020-07-05] MEDS: TRAMadol 50 mg Tablet PO (13:23)
[2020-07-05] MEDS: calcium carbonate 500 mg Chew Tablet 1000 MG PO (13:25)
--- NOTE | 2020-07-05 16:17 | PM.PN ---
Subjective Subjective: Interval history: Patient continues to complain of ongoing intermittent chest pain and some gas . Fingersticks this afternoon noted to be upwards of 400. Medications: Reviewed: Yes Vitals/I&O/Wt Last Vital Signs Temp 98.1 F 07/05/20 12:00 Pulse 97 07/05/20 12:00 Resp 16 07/05/20 12:00 BP 110/76 07/05/20 12:00 Pulse Ox 99 07/05/20 12:00 07/05/20 07/05/20 07/05/20 06:59 14:59 22:59 Intake Total 1235 / 3269 1458.5 / 1458.5 Balance 1235 / 3269 1458.5 / 1458.5 Weight last 48 hrs Weight 54.431 kg Physical Exam Narrative: EXAM NARRATIVE: GEN: Awake, alert and oriented, no acute distress CVS: S1S2 N RS: CTA B/L Abd: Soft, nt/nd , bs+ PRODUCT DEVELOPMENT TECHNICIAN: no focal neuro deficits Data : 07/05/20 06:12 07/05/20 06:12 Micro: Microbiology 07/04/20 22:00 Gram Stain - Final Toe - #1 07/05/20 06:00 Blood Culture - Preliminary Blood SPECIMEN COLLECTED 07/05/20 06:12 Blood Culture - Preliminary Blood SPECIMEN COLLECTED A&P Assessment and plan (1) Uncontrolled diabetes mellitus: With initial blood sugars over 800. Had associated uremia, hypochloremia, evidence of dehydration but no evidence of diabetic ketoacidosis. Status: Acute Qualifiers: Diabetes mellitus type: type 2 Glycemic state: with hyperglycemia Qualified Code(s): E11.65 - Type 2 diabetes mellitus with hyperglycemia (2) Abnormal urinalysis: Suggestive of a contaminated specimen though she does complain of pain at the end of urination Status: Acute (3) Leukocytosis: Could be reactive secondary to degree of hyperglycemia but cannot rule out relation to infection presently. Status: Acute Qualifiers: Leukocytosis type: unspecified Qualified Code(s): D72.829 - Elevated white blood cell count, unspecified (4) Blister of toe of right foot: Concerning for either developing her underlying diabetic wound Status: Acute Qualifiers: Encounter type: initial encounter Qualified Code(s): S90.424A - Blister (nonthermal), right lesser toe(s), initial encounter (5) Elevated transaminase level: In a patient with a history of hepatitis C status post remote treatment Status: Acute (6) Hypothyroidism: Not taking any treatment currently Status: Chronic Qualifiers: Hypothyroidism type: unspecified Qualified Code(s): E03.9 - Hypothyroidism, unspecified (7) Chronic bronchitis: Not acute Status: Chronic (8) Nicotine dependence, cigarettes, uncomplicated: Status: Chronic (9) Anxiety: Status: Chronic (10) Under or uninsured: Impacting ability to regularly get medications Status: Acute Additional A&P Information Observation admission Change to subcutaneous insulin, fingersticks continue to be uncontrolled, change low-dose insulin sliding scale to high-dose insulin sliding scale. Based upon 24-hour requirement, will likely need insulin upon discharge. HbA1c at 14. Check lipid panel for risk stratification TSH mildly elevated at 6, T4 within normal range, discontinue levothyroxine Keep right lower extremity elevated Blood cultures have been ordered, remains pending No acute abnormalities on foot x-ray, no signs of osteomyelitis Given ongoing chest pain in a patient with poorly controlled diabetes and several family members with history of CAD, will order stress test for tomorrow morning. Troponin series negative. EKG without acute ST-T wave changes, less concerning for acute OR, however cannot rule out angina Lovenox for DVT prophylaxis Supportive care otherwise Plans were discussed with patient Attestations Medical Necessity Statement*: Blood sugar control, stress test in the morning Coding Level of Care Code Acute Personal Lines Underwriter for [facility] Fwd Diagnoses Uncontrolled diabetes mellitus E11.65 Diabetes mellitus type: type 2 Glycemic state: with hyperglycemia Abnormal urinalysis R82.90 Leukocytosis D72.829 Leukocytosis type: unspecified Blister of toe of right foot S90.424A Encounter type: initial encounter Elevated transaminase level R74.01 Hypothyroidism E03.9 Hypothyroidism type: unspecified Chronic bronchitis J42 Nicotine dependence, cigarettes, uncomplicated F17.210 Anxiety F41.9 Under or uninsured Z59.8
[2020-07-05 17:09] LABS: Glucose Point of Care 457 mg/dL (70-110)
[2020-07-05 20:49] LABS: Glucose Point of Care 354 mg/dL (70-110)
[2020-07-05] MEDS: insulin glargine 100 units/1 mL 5 UNIT SUBCUT (22:04)
[2020-07-05] MEDS: enoxaparin 40 mg/0.4 mL Syringe SUBCUT (22:04)
[2020-07-05] MEDS: trazodone 50 mg Tablet PO (22:04)
[2020-07-05] MEDS: ondansetron 2 mg/ML SDV 2 mL 4 MG IVP (22:49)
[2020-07-06] MEDS: TRAMadol 50 mg Tablet PO ×3 (00:03→21:30)
[2020-07-06 04:00] VITALS: BP 108/73; PULSE 91; RESP 17; TEMP 37.3; O2SAT 96
--- NOTE | 2020-07-06 06:00 | ECG_ITS ---
[facility] Test Date: 2020-07-06 Pat Name: Mena Zelaya Department: Room: 278 Gender: Female Engineer Soils: Susan Urbano : 1975 Requested By: Anette Melton Order Number: [id number] Zoraida MD: MELITON GARCIA Interpretive Statements NAME OF STUDY: LEXISCAN SESTAMIBI STRESS TEST INDICATION: Chest Pain, NOTE: Please note that this is the electrocardiogram portion of the Lexiscan/Sestamibi stress test. The perfusion scan will be documented separately. DATA: Baseline heart rate was 97 beats per minute. Baseline blood pressure was 113/76 millimeters of mercury. Target heart rate was 174. Maximum heart rate achieved was 125. which was 71 % of the predicted target heart rate. Maximum blood pressure was 115/74 millimeters of mercury. The reason for ending the test was completion of the protocol. The patient did not experience any symptoms. ELECTROCARDIOGRAM: BASELINE: Sinus rhythm. Normal axis. Otherwise, no ST-T changes suggestive of ischemia noted. No arrhythmia noted. EXERCISE: After Lexiscan injection, no ST-T changes suggestive of ischemic noted. No arrhythmia noted. 1. EKG not suggestive of ischemia 2. Lexiscan injection unremarkable. 3. Perfusion scan will be documented separately. Electronically Signed On 07-07-2020 11:50:48 TV TECHNICIAN by MELITON GARCIA [id number]
[2020-07-06 06:22] LABS: Basophils # 0.1 10^3/uL (0.0-0.1); Basophils % 0.6 %; Eosinophils # 0.1 10^3/uL (0.0-0.8); Eosinophils % 0.8 %; Hematocrit 41.2 % (37.0-47.0); Hemoglobin 14.5 g/dL (11.5-15.3); Lymphocytes # 1.9 10^3/uL (0.8-4.8); Lymphocytes % 13.6 %; Mean Corpuscular HGB Conc 35.2 g/dL (30.0-36.0); Mean Corpuscular Hemoglobin 30.5 pg (28.0-34.0); Mean Corpuscular Volume 86.7 fL (81-99); Mean Platelet Volume 8.8 fL (7.4-10.4); Monocytes # 1.2 10^3/uL (0.2-0.9); Monocytes % 8.6 %; Neutrophils # 10.73 10^3/uL (1.8-7.7); Neutrophils % 75.8 %; Nucleated Red Blood Cells % 0 %; Platelet Count 324 10^3/cmm (130-400); Red Blood Count 4.75 10^6/uL (4.1-5.3); Red Cell Distribution Width 11.6 % (12.1-15.1); White Blood Count 14.1 10^3/uL (4.0-10.0)
[2020-07-06 06:42] LABS: Glucose Point of Care 241 mg/dL (70-110)
[2020-07-06 06:44] LABS: Alanine Aminotransferase 104 U/L (0-33); Albumin Level 3.2 g/dL (3.5-5.2); Alkaline Phosphatase 85 IU/L (35-105); Anion Gap 13.1 (5-19); Aspartate Amino Transferase 70 U/L (0-32); Blood Urea Nitrogen 7 mg/dL (6-20); Calcium 8.5 mg/dL (8.5-10.5); Carbon Dioxide 27 mmol/L (22-29); Chloride 90 mmol/L (98-107); Globulin 3.1 g/dL (1.3-4.6); Glomerular Filtration Rate 171.8 mL/min (90-130); Glucose 209 mg/dL (65-115); Osmolality Calculated 266 mOsm/kg (285-295); Potassium 4.1 mmol/L (3.5-5.1); Sodium 126 mmol/L (136-145); Total Bilirubin 0.5 mg/dL (0.15-1.2); Total Protein 6.3 g/dL (6.6-8.7)
[2020-07-06 07:15] VITALS: BP 104/68; PULSE 90; RESP 18; TEMP 37.1; O2SAT 96
[2020-07-06] MEDS: regadenoson 0.4 Mg/5 ml Syringe IVP (08:36)
[2020-07-06 08:37] VITALS: BP 113/67; PULSE 100
[2020-07-06] MEDS: aminophylline 25 mg/mL SDV 10 mL IVP (08:42)
[2020-07-06] MEDS: famotidine 20 mg Tablet PO ×2 (10:05→18:00)
[2020-07-06 11:13] LABS: Glucose Point of Care 329 mg/dL (70-110)
[2020-07-06 11:15] VITALS: BP 100/62; PULSE 102; RESP 20; TEMP 36.8; O2SAT 98
--- NOTE | 2020-07-06 11:49 | PM.PN ---
Subjective Subjective: Interval history: No acute event overnight.Chest pressure is improving.She went for stress test today. Her other vitals and labs have been reviewed. Medications: Reviewed: Yes Vitals/I&O/Wt Last Vital Signs Temp 98.3 F 07/06/20 11:15 Pulse 102 H 07/06/20 11:15 Resp 20 H 07/06/20 11:15 BP 100/62 07/06/20 11:15 Pulse Ox 98 07/06/20 11:15 07/05/20 07/06/20 07/06/20 22:59 06:59 14:59 Intake Total 360 / 1818.5 1000 / 2818.5 975 / 975 Output Total 1500 / 1500 Balance 360 / 1818.5 -500 / 1318.5 975 / 975 Weight last 48 hrs Weight 54.431 kg Physical Exam Narrative: EXAM NARRATIVE: EXAM NARRATIVE: GEN: Awake, alert and oriented, no acute distress CVS: S1S2 N RS: CTA B/L Abd: Soft, nt/nd , bs+ RE DYE HAND: no focal neuro deficits. Data : 07/06/20 06:06 07/06/20 06:06 Micro: Microbiology 07/04/20 22:00 Gram Stain - Final Toe - #1 Wound Culture - Preliminary 07/05/20 06:00 Blood Culture - Preliminary Blood NEGATIVE TO DATE 07/05/20 06:12 Blood Culture - Preliminary Blood NEGATIVE TO DATE A&P Assessment and plan (1) Uncontrolled diabetes mellitus: With initial blood sugars over 800. Had associated uremia, hypochloremia, evidence of dehydration but no evidence of diabetic ketoacidosis. Status: Acute Qualifiers: Diabetes mellitus type: type 2 Glycemic state: with hyperglycemia Qualified Code(s): E11.65 - Type 2 diabetes mellitus with hyperglycemia (2) Abnormal urinalysis: Suggestive of a contaminated specimen though she does complain of pain at the end of urination. Levofloxacin 750 mg I.V Daily. Status: Acute (3) Leukocytosis: Could be reactive secondary to degree of hyperglycemia but cannot rule out relation to infection presently. Status: Acute Qualifiers: Leukocytosis type: unspecified Qualified Code(s): D72.829 - Elevated white blood cell count, unspecified (4) Blister of toe of right foot: Concerning for either developing her underlying diabetic wound Status: Acute Qualifiers: Encounter type: initial encounter Qualified Code(s): S90.424A - Blister (nonthermal), right lesser toe(s), initial encounter (5) Elevated transaminase level: In a patient with a history of hepatitis C status post remote treatment Status: Acute (6) Hypothyroidism: Not taking any treatment currently Status: Chronic Qualifiers: Hypothyroidism type: unspecified Qualified Code(s): E03.9 - Hypothyroidism, unspecified (7) Chronic bronchitis: Not acute Status: Chronic (8) Nicotine dependence, cigarettes, uncomplicated: Status: Chronic (9) Anxiety: Status: Chronic (10) Under or uninsured: Impacting ability to regularly get medications Status: Acute Additional A&P Information Change to subcutaneous insulin, fingersticks continue to be uncontrolled, change low-dose insulin sliding scale to high-dose insulin sliding scale. Based upon 24-hour requirement, will likely need insulin upon discharge. HbA1c at 14. Check lipid panel for risk stratification TSH mildly elevated at 6, T4 within normal range, discontinue levothyroxine Keep right lower extremity elevated Blood cultures have been ordered, remains pending No acute abnormalities on foot x-ray, no signs of osteomyelitis Given ongoing chest pain in a patient with poorly controlled diabetes and several family members with history of CAD, will order stress test for tomorrow morning. Troponin series negative. EKG without acute ST-T wave changes, less concerning for acute LA, however cannot rule out angina Lovenox for DVT prophylaxis Supportive care otherwise Plans were discussed with patient Attestations Medical Necessity Statement*: Patient needs to be in hospital for chest pain evaluation and management. Coding Level of Care Code Acute Assistant Pressman for [facility] Tevind Diagnoses Uncontrolled diabetes mellitus E11.65 Diabetes mellitus type: type 2 Glycemic state: with hyperglycemia Abnormal urinalysis R82.90 Leukocytosis D72.829 Leukocytosis type: unspecified Blister of toe of right foot S90.424A Encounter type: initial encounter Elevated transaminase level R74.01 Hypothyroidism E03.9 Hypothyroidism type: unspecified Chronic bronchitis J42 Nicotine dependence, cigarettes, uncomplicated F17.210 Anxiety F41.9 Under or uninsured Z59.8
[2020-07-06] MEDS: ondansetron 2 mg/ML SDV 2 mL 4 MG IVP ×2 (14:04→22:17)
[2020-07-06 16:00] VITALS: BP 101/68; PULSE 94; RESP 20; TEMP 36.6; O2SAT 97
--- NOTE | 2020-07-06 16:23 | NMCV_ITS ---
NM nancy perf SPECT r/s* [id number] Mena Zelaya Age: 44 Gender: F : 1975 Exam Date: 07/06/2020 07:54 Ordering Phys: Anette Melton MD Technologist: ANA Giraldo Exam Location: [facility] Indications: CHEST PAIN, NAUSEA, VOMITING STRESS TEST Please see separate stress test report in [facility] for full findings IMAGE PROTOCOL Rest/Stress 1 Lexiscan Day Radiopharmaceutical Dose (mCi) Administration Site Administered by Rest: Tc-99m 10.8 IV ANA Giraldo Sestamibi Stress:Tc-99m 32.3 IV ANA Riley Sestamibi Rest: 06-Jul-2020 60 Discovery 630 Stress: 06-Jul-2020 30 Discovery 630 0.4mg Lexiscan. Images obtained in supine and prone position. SPECT RESULTS Technical Quality: Excellent Raw Data Analysis: Normal Image Corrections: No attenuation or motion correction applied Summed Stress Score: 0 Summed Rest Score: 0 Summed Difference Score: 0 PERFUSION FINDINGS Medium-sized area of reduced perfusion uptake noted in basal to mid inferior wall on the rest images which improved over stress images suggestive of artifact. FUNCTIONAL RESULTS (calculated via Gated SPECT) Stress Image LV EF (%): 63 Stress EDV (mL):76 TID: 1.08 Stress ESV (mL):28 Rest Image LV EF (%): 63 FUNCTIONAL FINDINGS: There is normal left ventricular systolic function. IMPRESSIONS Myocardial perfusion imaging is normal low probability for obstructive coronary artery disease. EKG segment will be documented separately.. Tonny Doran MD (Electronically Signed) Final Date: 07 July 2020 11:45 S
[2020-07-06 16:59] LABS: Glucose Point of Care 414 mg/dL (70-110)
[2020-07-06] MEDS: acetaminophen 325 mg Tablet 650 MG PO (17:57)
[2020-07-06] MEDS: calcium carbonate 500 mg Chew Tablet 1000 MG PO (17:59)
[2020-07-06 20:00] VITALS: BP 110/67; PULSE 98; RESP 17; TEMP 36.4; O2SAT 97
[2020-07-06] MEDS: sodium chloride 0.9% 1,000 ML 125 ML IV (20:32)
[2020-07-06] MEDS: levofloxacin-dextrose 5 % 750 MG/150 ML PREMIX 100 MG IV (20:32)
[2020-07-06 21:16] LABS: Glucose Point of Care 416 mg/dL (70-110)
[2020-07-06] MEDS: insulin glargine 100 units/1 mL 5 UNIT SUBCUT (21:30)
[2020-07-06] MEDS: trazodone 50 mg Tablet PO (21:30)
[2020-07-06] MEDS: enoxaparin 40 mg/0.4 mL Syringe SUBCUT (21:31)
[2020-07-07] VITALS: BP 108/71; PULSE 97; RESP 18; TEMP 36.5; O2SAT 96
[2020-07-07 04:00] VITALS: BP 101/66; PULSE 85; RESP 16; TEMP 36.8; O2SAT 97
[2020-07-07] MEDS: acetaminophen 325 mg Tablet 650 MG PO (04:07)
[2020-07-07] MEDS: sodium chloride 0.9% 1,000 ML 125 ML IV (05:55)
[2020-07-07 06:39] LABS: Glucose Point of Care 225 mg/dL (70-110)
[2020-07-07] MEDS: TRAMadol 50 mg Tablet PO (07:52)
[2020-07-07] MEDS: ondansetron 2 mg/ML SDV 2 mL 4 MG IVP (07:55)
[2020-07-07 08:00] VITALS: BP 115/75; PULSE 82; RESP 18; TEMP 36.4; O2SAT 92
[2020-07-07] MEDS: famotidine 20 mg Tablet PO (08:50)
[2020-07-07 10:58] LABS: Glucose Point of Care 356 mg/dL (70-110)
--- NOTE | 2020-07-07 10:59 | PC.NURSE ---
Patient is requesting a regular Sprite. to drink. Patient was educated on the fact that she is on a diabetic diet and needs to keep her blood sugar low. Patient states, I can not drink diet Sprite and I would like a regular one please. Continued to try and educate patient about her blood sugar and patient states, I want a regular Sprite please. Regular Sprite given at patient's request.
[2020-07-07 11:00] VITALS: BP 102/66; PULSE 88; RESP 18; TEMP 36.6; O2SAT 95
--- NOTE | 2020-07-07 14:46 | P.DS_ITS ---
Discharge Providers Date of Admission: 07/04/20 20:45 Date of Discharge: July 07, 2020 Attending Provider at Admission: Cristel Brock MD Attending Provider at Discharge: Benjamin Wasserman MD Diagnoses at Discharge Discharge Diagnosis (1) Uncontrolled diabetes mellitus: Status: Acute Qualifiers: Diabetes mellitus type: type 2 Glycemic state: with hyperglycemia Qualified Code(s): E11.65 - Type 2 diabetes mellitus with hyperglycemia (2) Blister of toe of right foot: Status: Acute Qualifiers: Encounter type: initial encounter Qualified Code(s): S90.424A - Blister (nonthermal), right lesser toe(s), initial encounter (3) Hypothyroidism: Status: Chronic Qualifiers: Hypothyroidism type: unspecified Qualified Code(s): E03.9 - Hypothyroidism, unspecified (4) Chronic bronchitis: Status: Chronic (5) Nicotine dependence, cigarettes, uncomplicated: Status: Chronic Reason for Visit Reason for Visit: CP / N/V Hospital Course Hospital Course 44 year old female who presented to the emergency room chest discomfort and nausea and vomiting. Chest pain has been intermittent, severe, rated at a 7 out of 10. Located in the left chest in the center of the chest.She was admitted for the evaluation and management of chest pain.She underwent cardiac stress test: Myocardial perfusion imaging is normal low probability for obstructive coronary artery disease.Troponin series negative. EKG without acute ST-T wave changes.She was also managed for uncontrolled diabetes her Hba1c is 14.She was kept on insulin as inpatient and was being discharged on Metformin as well as glipizide. TSH was mildly elevated at 6, T4 within normal range, levothyroxine was discontinued. She was kept on levofloxacin 750 mg I.V Daily for UTI and was discharged on levofloxacin 500 mg po daily for 5 days. For her Blister of toe of right foot: Initially it was Concerning for either developing her underlying diabetic wound. No acute abnormalities on foot x-ray, no signs of osteomyelitis. Blood cultures were negative. She underwent CV arterial duplex LE RT Abnormal resting ADELINA with normal Doppler waveforms in the right lower extremity Features may suggest extrinsic compression of the arteries/vasospastic conditions. She is being discharged in stable condition and she will need to follow with a PCP as well as handtools repairer as outpatient for long time diabetes management. Physical Exam Narrative: EXAM NARRATIVE: EXAM NARRATIVE: GEN: Awake, alert and oriented, no acute distress CVS: S1S2 N RS: CTA B/L Abd: Soft, nt/nd , bs+ QUANTITATIVE RESEARCHER: no focal neuro deficits. Discharge Data Data Completed and Pending: Completed Studies During Hospitalization Category Date Time Status Sestamibi Stress Test Request Routi ne Exams 07/06/20 06:00 Completed XR chest 1V karena ble [id number] Stat Exams 07/04/20 16:11 Completed XR foot RT min 3V * [id number] Routine Exams 07/05/20 08:00 Completed NM nancy perf SPECT r/s* [id number] Routin e Nuc Med 07/06/20 16:23 [place] [id number] Rout ine Ultrasound 07/05/20 06:00 Completed Pending at discharge Category Date Time Status Sestamibi Stress Test Request Routi ne Exams 07/05/20 16:23 Stop Req Blood Culture Sta t Lab 07/04/20 22:30 Results Wound Culture and Gram Stain Routin e Lab 07/04/20 22:00 Results Labs from last 24 hours 07/07/20 07/07/20 07/06/20 10:45 06:30 21:06 POC Glucose 356 H 225 H 416 H 07/06/20 16:51 POC Glucose 414 H Vitals: Last Vital Signs Temp 97.8 F 07/07/20 11:00 Pulse 88 07/07/20 11:00 Resp 18 07/07/20 11:00 BP 102/66 07/07/20 11:00 Pulse Ox 95 07/07/20 11:00 Discharge Plan Discharge Patient Disposition: Home Condition: Stable Prescriptions: New metformin 500 mg tablet 500 mg PO BID Qty: 60 RF: 0 glipizide 5 mg tablet 5 mg PO DAILY Qty: 30 RF: 0 famotidine 20 mg tablet 20 mg PO DAILY Qty: 30 RF: 0 levofloxacin 500 mg tablet 500 mg PO DAILY 5 Days RF: 0 Discontinued acetaminophen [Tylenol Extra Strength] 500 mg Tablet 1,000 mg PO PRN RF: 0 Discharge Orders: Discharge Order (Routine); Ordered 07/07/20 Ordered By: Benjamin Wasserman Referrals: Sameera Lozano FNP [Referring] - Discharge Diet: Diabetic Discharge Activity: Resume usual activity Patient Instructions: Type 2 Diabetes, Diabetes and Diet, Famotidine (By mouth), Glipizide (By mouth), Metformin (By mouth), Levofloxacin (By mouth), How to Check Your Blood Sugar (DC), Diabetic Foot Care (GEN) Activity Restrictions/Additional Instructions: Please call Urgent Care to be set up with a primary care provider Discharge Attestations Time Spent in Discharge Care*: greater than 30 min Specific Discharge Activities: educating patient, educating and/or supporting family/caregiver, discussing with pcp/other providers, discussing with rn case mgr/social workers/dc planners, documenting/other paperwork and evaluating patient/reviewing data Status at Discharge: Cognitive status at discharge: cognitively intact , Behavioral status at discharge: cooperative , Functional status at discharge: independent ambulation Overall status at discharge: patient is back to baseline Quality Metrics Clinical Quality Measures During this hospital stay, did patient experience: None Coding Level of Care Code Acute Sales Communications Manager for [employer] Diagnoses Uncontrolled diabetes mellitus E11.65 Diabetes mellitus type: type 2 Glycemic state: with hyperglycemia Blister of toe of right foot S90.424A Encounter type: initial encounter Hypothyroidism E03.9 Hypothyroidism type: unspecified Chronic bronchitis J42 Nicotine dependence, cigarettes, uncomplicated F17.210
--- NOTE | 2020-07-07 15:06 | PC.NURSE ---
patient does not have a primary care provider, when asked if we could set her up with one. she stated i will do it myself, just give me the phone number. phone number will be provided at discharge
[2020-07-07 16:35] VITALS: BP 102/66; PULSE 88; RESP 18; TEMP 36.6; O2SAT 95
--- NOTE | 2020-07-07 16:37 | PC.NURSE ---
Reviewed discharge with patient at this time. Patient verbalized understanding. Patient received her medications at bedside before leaving. Patient verbalized understanding of picking and following up with a primary care doctor. IV removed at this time. Patient tolerated well. Patient wheel chaired to private car.
== END 2020-07-07 16:40 | disposition home or self-care (01) ==
LOC: ER 16:17 → MEDSURG 20:54
PROVIDERS: Student in an Organized Health Care Education/Training Program; Admitting Provider Hospitalist; Emergency Provider Family Medicine; Visit Provider Internal Medicine
DX: R07.89 Other chest pain (principal); R11.2 Nausea with vomiting, unspecified; E11.65 Type 2 diabetes mellitus with hyperglycemia; S90.424A Blister (nonthermal), right lesser toe(s), initial encounter; E03.9 Hypothyroidism, unspecified; F17.210 Nicotine dependence, cigarettes, uncomplicated; J42 Unspecified chronic bronchitis; R82.90 Unspecified abnormal findings in urine; D72.829 Elevated white blood cell count, unspecified; R74.01 Elevation of levels of liver transaminase levels; Z59.8 Other problems related to housing and economic circumstances
CPT/HCPCS: 36415; 36416; 36600; 71045; 73630; 78452; 80048; 80051; 80053; 80061; 80306; 80307; 81001; 81025; 82330; 82805; 82962; 83036; 83605; 83690; 83735; 84100; 84439; 84443; 84484; 85025; 85378; 85610; 85651; 86140; 86803; 87040; 87070; 87075; 87205; 87426; 87804; 93005; 93017; 93926; 96361; 96365; 96366; 96367; 96372; 96375; 99285; A9500; G0378; J0280; J1650; J1815 ×2; J1956; J2405; J2550; J2785; J7030; J7050

== ENCOUNTER 2020-07-11 12:09 | Emergency (ER) | payer SELFPAY ==
[2020-07-11 12:27] VITALS: BP 137/77; PULSE 121; RESP 16; TEMP 36.7; O2SAT 98; BMI 22.1
[2020-07-11 13:15] VITALS: PULSE 100
--- NOTE | 2020-07-11 13:46 | W.ED.EXTPRO ---
HPI - Extremity Problem General: Chief complaint: Extremity Problem,Nontraumatic Stated complaint: Rt Foot pain Time Seen by Provider: 07/11/20 13:07 Source: patient Mode of arrival: ambulatory Limitations: no limitations History of Present Illness: HPI Narrative: 44-year-old female comes in today with blistering of the first digit on the right foot. Patient reports has been blistering for the last 2 weeks. It was noted when she was in the hospital for uncontrolled diabetes 1 week ago. Patient appears well. Patient appears no acute distress. Patient does complaint of pain to the toe. 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 History of MRSA infection diabetic wounds Hypothyroidism Leukocytosis Marijuana use Nicotine dependence, cigarettes, uncomplicated JOSE (obstructive sleep apnea) per sleep study 2010, CPAP of 13 recommended at that time, no longer with machine Supraventricular tachycardia (~04/2020) identified during ED visit 04/2020, treated with 6mg adenosine with conversion to sinus Uncontrolled diabetes mellitus Under or uninsured Surgical History (Updated 07/04/20 @ 20:53 by Cristel Brock MD) History of hysterectomy (~2011) also Kimberly urethral plication History of incision and drainage (~2013) right upper extremity and R lower extremity History of tubal ligation History of umbilical hernia repair (~2011) Family History (Updated 07/04/20 @ 21:42 by Cristel Brock MD) Father Diabetes Mother Diabetes Grandfather Pacemaker Denies family history of Stroke Social History (Updated 07/11/20 @ 12:32 by Alan Seth RN) Smoking and tobacco status: current every day smoker cigarettes Packs smoked per day: 0.5 Alcohol intake: never Substance/Drug Use: current Substance/Drug use frequency: few times a month Substance/Drug use type: Marijuana Physical Exam Const: COMMON NORMALS: no acute distress and patient oriented x3 GENERAL APPEARANCE: cooperative HENMT: COMMON NORMALS: normocephalic, TM's normal bilaterally and Normal external nose present HEAD & SCALP: normal to inspection and normocephalic NOSE: Normal external nose present TYMPANIC MEMBRANE: TM's normal bilaterally MOUTH: Normal oral and palatal mucosa present THROAT: posterior oropharynx normal Eye: GENERAL EYE: appearance normal, both eyes and all related structures Neck/C-Spine: COMMON NORMALS: full ROM Lymph: LYMPHATIC: no lymphadenopathy noted Chest: COMMONS NORMALS: normal inspection of the chest Resp: COMMON NORMALS: normal respiratory effort EFFORT & INSPECTION: Yes able to speak in complete sentences Cardio: COMMON NORMALS: regular rate and regular rhythm RATE: regular rate RHYTHM: regular rhythm GI: COMMON NORMALS: non-tender : COMMON NORMALS: Yes no CVA tenderness BLADDER/KIDNEY EXAM: Yes no CVA tenderness Back/Pelvis: COMMON NORMALS: no CVA tenderness and thoracic and lumbar spine normal to inspection Extremity: COMMON NORMALS: normal to inspection Neuro: COMMON NORMALS: patient oriented x3 and moves all extremities Psych: COMMON NORMALS: mental status grossly normal and cooperative Skin: COMMON NORMALS: no rashes or lesions noted GENERAL SKIN EXAM: no rashes or lesions noted Course Vital Signs: Vital signs: Vital Signs Temperature 98.1 F 07/11/20 12:27 Pulse Rate 100 07/11/20 13:15 Respiratory Rate 16 07/11/20 12:27 Blood Pressure 137/77 07/11/20 12:27 Pulse Oximetry 98 07/11/20 12:27 MDM - Extremity (Nontraumatic) MDM Narrative: Medical decision making narrative: Patient comes in for pain to the great toe of the right foot. Patient also reports worsening blistering of the toe. On exam patient has a blister to the great toe. Cap refill is intact. Pulses are intact to the dorsal pedis. Minimal redness is proximal to the blister. Differential diagnosis includes diabetic foot ulcer, trauma injury, osteomyelitis, cellulitis with infection. X-ray noted no osteomyelitis. No other sign of injury was noted. Due to patient's history of uncontrolled diabetes suspect that patient has a diabetic foot ulcer recommended follow-up with wound care and podiatry for further treatment. Patient reported understanding and agreed to plan. Patient will be treated with Bactrim to cover for staph infection and was given medication to help with pain. Discharge Plan Discharge Patient Disposition: Home Clinical Impression: Diabetic foot ulcer Qualifiers: Diabetic foot ulcer location: toe Diabetes mellitus type: due to underlying condition Laterality: right Non-pressure ulcer stage: with other severity Qualified Code(s): E08.621 - Diabetes mellitus due to underlying condition with foot ulcer Condition: Stable Prescriptions: New hydrocodone-acetaminophen 5-325 mg tablet 1 tab PO Q6H PRN (Reason: pain) Qty: 14 RF: 0 Bactrim DS 800-160 mg tablet 1 tab PO BID 7 Days Qty: 14 RF: 0 No Action metformin 500 mg tablet 500 mg PO BID Qty: 60 RF: 0 glipizide 5 mg tablet 5 mg PO DAILY Qty: 30 RF: 0 famotidine 20 mg tablet 20 mg PO DAILY Qty: 30 RF: 0 levofloxacin 500 mg tablet 500 mg PO DAILY 5 Days RF: 0 Discharge Orders: Discharge ED (Routine); Ordered 07/11/20 Ordered By: Polo Jennings Discharge Diet: Usual diet Discharge Activity: Limit activity as instructed Patient Instructions: Diabetic Foot Ulcers (ED), Opioid Safety Activity Restrictions/Additional Instructions: Avoid further injury to toe. Always wear shoes when walking around the house. Make sure there is nothing rubbing the foot in your shoe. Case management will contact you in regard to follow-up with wound care and podiatry. Return to the emergency department for high fever or new concerns. Coding Level of Care Code ED Content Developer for Esperanza Hernandez Exam Comprehensive
--- NOTE | 2020-07-11 13:48 | XRR_ITS ---
PROCEDURE INFORMATION: Exam: XR Right Foot Exam date and time: 07/11/2020 1:52 PM Age: 44 years old Clinical indication: Pain; Right; Patient HX: 1st toes has a blister; Additional info: Foot ulcer TECHNIQUE: Imaging protocol: XR Right foot. Views: 3 or more views. COMPARISON: CR (LOW EXM, ) 07/05/2020 8:43 AM FINDINGS: Bones/joints: Normal. Soft tissues: Normal. XR/XR foot RT min 3V* [id number] IMPRESSION: No acute findings.
[2020-07-11] MEDS: HYDROcodone-acetaminophen 5-325 mg Tablet 1 TAB PO (14:13)
--- NOTE | 2020-07-13 09:24 | DCPLANNER ---
manager hvac had message to schedule a follow up appointment for patient with ortho. manager hvac called the ortho clinic, spoke with Clare, gave clinic patients information. manager hvac was told that patients information would be printed and reviewed. Clinic will call patient with appointment information.
--- NOTE | 2020-07-14 07:40 | DCPLANNER ---
Patient had a follow up appointment scheduled for 07.13.20 with ortho - patient did attend appointment.
== END 2020-07-11 14:35 | disposition home or self-care (01) ==
PROVIDERS: Emergency Provider Nurse Practitioner Family
DX: E08.621 Diabetes mellitus due to underlying condition with foot ulcer (principal); Z79.84 Long term (current) use of oral hypoglycemic drugs; E78.5 Hyperlipidemia, unspecified; Z86.19 Personal history of other infectious and parasitic diseases; F17.210 Nicotine dependence, cigarettes, uncomplicated
CPT/HCPCS: 73630; 99283

== ENCOUNTER 2020-07-13 14:00 | Outpatient (CLI) | payer SELFPAY | END 2020-07-13 14:01 | disposition home or self-care (01) | LOC: SPT 14:01 | PROVIDERS: Visit Provider Podiatrist Foot & Ankle Surgery | DX: Z46.89 Encounter for fitting and adjustment of other specified devices (principal); E11.42 Type 2 diabetes mellitus with diabetic polyneuropathy; L97.512 Non-pressure chronic ulcer of other part of right foot with fat layer exposed | CPT/HCPCS: L4361 ==

== ENCOUNTER 2020-07-21 10:42 | Outpatient (CLI) | payer SELFPAY | END 2020-07-21 10:43 | disposition home or self-care (01) | LOC: WOUND 10:43 | PROVIDERS: Visit Provider Thoracic Surgery (Cardiothoracic Vascular Surgery) | DX: E11.621 Type 2 diabetes mellitus with foot ulcer (principal); L97.512 Non-pressure chronic ulcer of other part of right foot with fat layer exposed | CPT/HCPCS: 99203 ==

== ENCOUNTER 2020-07-28 10:43 | Outpatient (CLI) | payer SELFPAY | END 2020-07-28 10:44 | disposition home or self-care (01) | LOC: WOUND 10:43 | PROVIDERS: Visit Provider Thoracic Surgery (Cardiothoracic Vascular Surgery) | DX: E11.621 Type 2 diabetes mellitus with foot ulcer (principal); L97.512 Non-pressure chronic ulcer of other part of right foot with fat layer exposed | CPT/HCPCS: 11042 ==

== ENCOUNTER 2020-08-04 13:05 | Outpatient (CLI) | payer SELFPAY | END 2020-08-04 13:06 | disposition home or self-care (01) | LOC: WOUND 13:05 | PROVIDERS: Visit Provider Thoracic Surgery (Cardiothoracic Vascular Surgery) | DX: E11.621 Type 2 diabetes mellitus with foot ulcer (principal); L97.512 Non-pressure chronic ulcer of other part of right foot with fat layer exposed | CPT/HCPCS: 11042 ==

== ENCOUNTER 2020-08-11 12:18 | Outpatient (CLI) | payer SELFPAY | END 2020-08-11 12:19 | disposition home or self-care (01) | LOC: WOUND 12:21 | PROVIDERS: Visit Provider Thoracic Surgery (Cardiothoracic Vascular Surgery) | DX: E11.621 Type 2 diabetes mellitus with foot ulcer (principal); L97.512 Non-pressure chronic ulcer of other part of right foot with fat layer exposed; I96 Gangrene, not elsewhere classified; F17.210 Nicotine dependence, cigarettes, uncomplicated | CPT/HCPCS: 11042 ==

== ENCOUNTER 2020-08-18 15:08 | Outpatient (CLI) | payer SELFPAY | END 2020-08-18 15:09 | disposition home or self-care (01) | LOC: WOUND 15:09 | PROVIDERS: Visit Provider Thoracic Surgery (Cardiothoracic Vascular Surgery) | DX: E11.621 Type 2 diabetes mellitus with foot ulcer (principal); L97.512 Non-pressure chronic ulcer of other part of right foot with fat layer exposed | CPT/HCPCS: 11042 ==

== ENCOUNTER 2020-10-17 15:08 | Emergency (ER) | payer SELFPAY ==
[2020-10-17 15:09] VITALS: BP 131/85; PULSE 84; RESP 15; TEMP 36.4; O2SAT 100; BMI 20.3
--- NOTE | 2020-10-17 15:21 | XRR_ITS ---
PROCEDURE INFORMATION: Exam: XR Right Ribs with PA Chest Exam date and time: 10/17/2020 3:22 PM Age: 45 years old Clinical indication: Injury or trauma; Fall; Rib area; Blunt trauma (contusions or hematomas); Additional info: Fall/pain TECHNIQUE: Imaging protocol: XR Right ribs with PA chest. Views: 3 views Total images: 4 COMPARISON: CR XR chest 1V portable [id number] 07/04/2020 4:29 PM FINDINGS: Lungs: No visible active interstitial or alveolar airspace disease. No visible pulmonary contusion. Pleural spaces: Unremarkable. No pleural effusion. No pneumothorax. No visible hemothorax. Heart/Mediastinum: Cardiac structures and configuration stable and unremarkable. Bones/joints: Scoliosis of the spine. No visible rib fracture. XR/XR ribs RT mn 3V w CXR1V [id number] IMPRESSION: No radiographically visible rib fracture.
[2020-10-17] MEDS: HYDROcodone-acetaminophen 5-325 mg Tablet 2 TAB PO (15:26)
--- NOTE | 2020-10-17 15:39 | W.ED.FALL ---
HPI - Fall General: Chief Complaint: Fall Stated Complaint: RIGHT RIB PAIN S/P FALL Time Seen by Provider: 10/17/20 15:21 History of Present Illness: MD complaint: fall Onset (ago): day(s) (1) Fall from: standing Fall witnessed: no Place fall occurred: home Loss of consciousness: None Prolonged down time: no Symptoms prior to fall: none Context: tripped/slipped Severity: moderate Quality: sharp Associated symptoms-after fall: Reports chest pain; Denies abdominal pain, confusion, difficulty walking, headache(s), hematuria, lightheadedness, neck pain, numbness, short of breath, vertigo or weakness Review of Systems Const: Denies: fever(s), chills, body aches, change in appetite, fatigue or malaise ENMT: Denies: throat pain, ear or mastoid pain, nasal discharge or nasal congestion Card: Reports: chest pain; Denies: lightheadedness Resp: Denies: dyspnea, productive cough or non-productive cough GI: Denies: abdominal pain : Denies: hematuria Musc: Denies: neck pain Skin/Breast: Denies: rash or pruritus Neuro: Denies: headache(s), difficulty walking, vertigo or confusion PFSH ED PFSH: Medical History Abnormal urinalysis Anxiety Blister of toe of right foot Chronic bronchitis Chronic hip pain Chronic low back pain with left-sided sciatica Diabetes initially gestational age ~24, persisted and diagnosed as Type II diabetes, obese at onset, no change with weight loss Diabetic neuropathy Dyslipidemia Elevated transaminase level GERD (gastroesophageal reflux disease) Hepatitis C 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, s/p treatment with interferon in ~ 1999 by Eddie 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 History of MRSA infection diabetic wounds Hypothyroidism Leukocytosis Marijuana use Nicotine dependence, cigarettes, uncomplicated JOSE (obstructive sleep apnea) per sleep study 2010, CPAP of 13 recommended at that time, no longer with machine Osteoarthritis involving multiple joints on both sides of body Supraventricular tachycardia (~04/2020) identified during ED visit 04/2020, treated with 6mg adenosine with conversion to sinus Uncontrolled diabetes mellitus Under or uninsured Surgical History History of hysterectomy (~2011) also Kimberly urethral plication History of incision and drainage (~2013) right upper extremity and R lower extremity History of tubal ligation History of umbilical hernia repair (~2011) Family History Father Diabetes Mother Diabetes Grandfather Pacemaker Denies family history of Stroke Social History Smoking and tobacco status: current every day smoker cigarettes Packs smoked per day: 0.5 Second hand smoke exposure: Yes Alcohol intake: never Marital status: Life Partner Number of children: 2 Number of grandchildren: 0 Current occupational status: unemployed Physical Exam Const: COMMON NORMALS: no acute distress GENERAL APPEARANCE: cooperative and comfortable ORIENTATION/CONSCIOUSNESS: Yes awake, Yes oriented to person, Yes oriented to place and Yes oriented to time HENMT: COMMON NORMALS: normocephalic, atraumatic and hearing grossly normal bilaterally HEAD & SCALP: normocephalic and atraumatic Eye: COMMON NORMALS: Equal, round and reactive pupils present, EOMs intact bilaterally, conjunctivae normal and no scleral icterus CONJUNCTIVA: Yes conjunctivae normal PUPIL: Yes Equal, round and reactive pupils present Neck/C-Spine: COMMON NORMALS: no JVD Resp: COMMON NORMALS: normal respiratory effort, No retractions, No use of accessory muscles and clear to auscultation bilaterally AUSCULTATION: clear to auscultation bilaterally Cardio: COMMON NORMALS: no JVD, regular rate, regular rhythm and No murmurs present (Cardio) RATE: regular rate RHYTHM: regular rhythm GI: COMMON NORMALS: Soft to palpation and No hepatosplenomegaly present AUSCULTATION: Yes normoactive bowel sounds PALPATION: Yes Soft to palpation, No Tenderness to palpation present (GI), No Guarding due to palpation present (GI) and Yes No hepatosplenomegaly present Extremity: COMMON NORMALS: normal to inspection, capillary refill normal, no clubbing, cyanosis or edema, no calf tenderness and no pedal edema Neuro: SENSORIUM/ORIENTATION: Yes oriented to person, Yes oriented to place and Yes oriented to time Course Vital Signs: Vital signs: Vital Signs Temperature 97.5 F L 10/17/20 15:09 Pulse Rate 84 10/17/20 15:09 Respiratory Rate 15 10/17/20 15:09 Blood Pressure 131/85 10/17/20 15:09 Pulse Oximetry 100 10/17/20 15:09 MDM - Fall MDM Narrative: Medical decision making narrative: No acute fracture. Pain reproducible palpation across chest wall in the area indicated by the patient no crepitus no subcu air we will go ahead and discharge the patient home can use tramadol as needed continues meloxicam ice to the affected area follow-up as needed Discharge Plan Discharge Patient Disposition: Home Clinical Impression: Fall, Contusion of rib on right side Condition: Stable Prescriptions: New tramadol 50 mg tablet 50 mg PO Q6H PRN (Reason: pain) Qty: 10 RF: 0 No Action metformin 500 mg tablet 500 mg PO BID Qty: 60 RF: 3 glipizide 5 mg tablet 5 mg PO DAILY Qty: 30 RF: 3 famotidine 20 mg tablet 20 mg PO DAILY Qty: 30 RF: 6 levothyroxine 25 mcg capsule 25 mcg PO DAILY Qty: 30 RF: 5 gabapentin 100 mg capsule 100 mg PO BID Qty: 60 RF: 1 meloxicam [Mobic] 7.5 mg tablet 7.5 mg PO BID Qty: 60 RF: 1 naproxen sodium 220 mg Tablet 440 mg PO PRN RF: 0 atenolol 25 mg tablet 25 mg PO QAM RF: 0 Discharge Orders: Discharge ED (Routine); Ordered 10/17/20 Ordered By: Serafin Yu Discharge Diet: Usual diet Discharge Activity: Increase activity as tolerated Patient Instructions: Opioid Safety Coding Level of Care Code ED Manager Biostatistics for Esperanza Fwjf Exam Comprehensive
[2020-10-17 16:17] VITALS: RESP 15
== END 2020-10-17 16:31 | disposition home or self-care (01) ==
PROVIDERS: Emergency Provider Family Medicine
DX: S20.211A Contusion of right front wall of thorax, initial encounter (principal); Z79.84 Long term (current) use of oral hypoglycemic drugs; E11.40 Type 2 diabetes mellitus with diabetic neuropathy, unspecified; E78.5 Hyperlipidemia, unspecified; Z86.19 Personal history of other infectious and parasitic diseases; F17.210 Nicotine dependence, cigarettes, uncomplicated; W19.XXXA Unspecified fall, initial encounter
CPT/HCPCS: 71101; 99283

== ENCOUNTER → 2020-12-23 11:49 | Outpatient (BNVA) | payer MEDICAID, SELFPAY | PROVIDERS: Visit Provider Family Medicine Adult Medicine | DX: E03.9 Hypothyroidism, unspecified (principal); E11.9 Type 2 diabetes mellitus without complications; M15.9 Polyosteoarthritis, unspecified; E78.5 Hyperlipidemia, unspecified; F43.10 Post-traumatic stress disorder, unspecified; F41.9 Anxiety disorder, unspecified; Z79.4 Long term (current) use of insulin; E11.40 Type 2 diabetes mellitus with diabetic neuropathy, unspecified; Z87.39 Personal history of other diseases of the musculoskeletal system and connective tissue | CPT/HCPCS: 80053; 83036; 84443; 85025; 85651; 86140; 86431 ==

== ENCOUNTER 2021-02-13 14:07 | Emergency (ER) | payer MEDICAID, SELFPAY ==
[2021-02-13 14:49] VITALS: BP 138/91; PULSE 102; RESP 18; TEMP 36.7; O2SAT 95; BMI 21.6
--- NOTE | 2021-02-13 19:56 | XRR_ITS ---
PROCEDURE INFORMATION: Exam: XR Chest Exam date and time: 02/13/2021 7:56 PM Age: 45 years old Clinical indication: Cough and shortness of breath; Additional info: Cough SOB TECHNIQUE: Imaging protocol: XR of the chest. Views: 1 view. COMPARISON: CR XR ribs RT mn 3V w CXR1V [id number] 10/17/2020 3:48 PM FINDINGS: Lungs: Lungs are clear. Pleural spaces: There is no pleural effusion or pneumothorax. Heart/Mediastinum: Cardiomediastinal contours are unremarkable. Bones/joints: There is thoracolumbar scoliosis. No acute fracture. XR/XR chest 1V portable [id number] IMPRESSION: No acute findings.
[2021-02-13 20:15] VITALS: BP 113/74; PULSE 111; RESP 20; TEMP 36.7; O2SAT 98
[2021-02-13 20:17] LABS: Basophils # 0.1 10^3/uL (0.0-0.1); Basophils % 0.6 %; Eosinophils # 0.1 10^3/uL (0.0-0.8); Eosinophils % 0.9 %; Hematocrit 48.6 % (37.0-47.0); Hemoglobin 17.6 g/dL (11.5-15.3); Lymphocytes # 3.5 10^3/uL (0.8-4.8); Lymphocytes % 26.7 %; Mean Corpuscular HGB Conc 36.2 g/dL (30.0-36.0); Mean Corpuscular Hemoglobin 30.8 pg (28.0-34.0); Mean Corpuscular Volume 85.1 fl (81-99); Mean Platelet Volume 9.2 fL (7.4-10.4); Monocytes % 7.9 %; Neutrophils # 8.26 10^3/uL (1.8-7.7); Neutrophils % 63.4 %; Nucleated Red Blood Cells % 0 %; Platelet Count 430 10^3/cmm (130-400); Red Blood Count 5.71 10^6/uL (4.1-5.3); Red Cell Distribution Width 11.9 % (12.1-15.1)
[2021-02-13 20:33] LABS: Alanine Aminotransferase 92 U/L (0-33); Albumin Level 4.5 g/dL (3.5-5.2); Alkaline Phosphatase 164 IU/L (35-105); Anion Gap 16.4 (5-19); Aspartate Amino Transferase 35 U/L (0-32); Blood Urea Nitrogen 14 mg/dL (6-20); Calcium 9.9 mg/dL (8.5-10.5); Carbon Dioxide 29 mmol/L (22-29); Chloride 84 mmol/L (98-107); Globulin 3.4 g/dL (1.3-4.6); Glomerular Filtration Rate 107.2 mL/min (90-130); Lipase 53 U/L (13-60); Osmolality Calculated 284 mOsm/kg (285-295); Potassium 4.4 mmol/L (3.5-5.1); Sodium 125 mmol/L (136-145); Total Bilirubin 0.5 mg/dL (0.15-1.2); Total Protein 7.9 g/dL (6.6-8.7)
[2021-02-13 20:38] LABS: Glucose 515 mg/dL (65-115)
[2021-02-13] MEDS: morphine 4 mg/mL SDV 1 mL IVP (20:40)
[2021-02-13] MEDS: ketorolac 30 mg/mL INJ 15 MG IVP (20:40)
[2021-02-13] MEDS: ondansetron 2 mg/ML SDV 2 mL 4 MG IVP (20:41)
[2021-02-13] MEDS: sodium chloride 0.9% 1,000 ML 999 ML IV ×2 (20:41→21:44)
[2021-02-13 20:46] LABS: HCG, Serum Qual Negative (Negative)
[2021-02-13 21:05] LABS: Add Urine Microscopic? YES; Bilirubin Urine Neg (Negative); Blood Urine Neg (Negative); Glucose Urine UA 4+ (Normal); Ketones Urine 1+ (Negative); Leukocyte Esterase Urine Trace (Negative); Nitrate Urine Negative (Negative); Protein Urine Neg (Negative); Urine Color Yellow (Yellow); Urobilinogen Urine Norm (Negative); pH Urine 5 (5-7)
[2021-02-13 21:07] LABS: Add Urine Culture? No; Amorphous Sediment Urine 1+ /hpf; Bacteria Urine 3+ /hpf; RBC Urine 0-4 /hpf (0-2); Squamous Epithelial Cell Urine 25-40 /hpf (0-5); WBC Urine 15-25 /hpf (0-5)
[2021-02-13 21:16] LABS: SARS Covid-2 Antigen Negative (Negative)
[2021-02-13 21:24] VITALS: BP 138/88; PULSE 101; RESP 18; O2SAT 98
[2021-02-13 21:38] LABS: Amphetamines Screen Urine Negative (Negative); Barbiturates Screen Urine Negative (Negative); Benzodiazepines Screen Urine Negative (Negative); Cocaine Screen Urine Negative (Negative); Opiate Screen Urine Negative (Negative); PCP Screen Urine Negative (Negative); THC Screen Urine Positive (Negative)
[2021-02-13] MEDS: insulin regular-human 100 units/1 mL 12 UNIT IVP (21:43)
[2021-02-13] MEDS: cefTRIAXone 1,000 MG in sodium chloride 0.9% (plus) 50 ML 100 MG IV (21:59)
[2021-02-13 22:32] LABS: Glucose Point of Care 363 mg/dL (70-110)
[2021-02-13 23:41] VITALS: BP 144/66; PULSE 94; RESP 16; O2SAT 98
[2021-02-14] MEDS: metformin 500 mg Tablet 1000 MG PO
--- NOTE | 2021-02-14 00:02 | PC.NURSE ---
accucheck 263
[2021-02-14 00:03] LABS: Glucose Point of Care 276 mg/dL (70-110)
--- NOTE | 2021-02-14 00:08 | ED_ITS ---
HPI - Nausea/Vomiting/Diarrhea General: Chief complaint: Nausea/Vomiting/Diarrhea Stated complaint: N/V Time Seen by Provider: 02/13/21 19:50 History of Present Illness: HPI Narrative: 45-year-old vaccinated female, type II diabetic, with a 4 to 5-day history of nausea, some diarrhea, cough, and chills. She has not taken her medications, because she has felt ill. No known COVID-19 contacts. No one else in the home is sick MD elicited complaint: nausea, vomiting and diarrhea Onset (ago): day(s) Description of vomiting: food contents and watery Description of diarrhea: watery Associated nausea: Yes Associated abdominal pain: Yes (Mild generalized) Location of pain: Diffuse Pain consistency: intermittent Severity: mild Exacerbating factors: vomiting Relieving factors: none Associated symtoms: Reports cough, dysuria, fevers/chills, nausea and weakness (Generalized); Denies altered mental status, chest pain, diaphoresis, myalgias or short of breath Review of Systems Const: Reports: chills; Denies: fever(s), body aches or diaphoresis Card: Denies: chest pain Resp: Reports: non-productive cough; Denies: dyspnea or productive cough GI: Reports: nausea, vomiting and diarrhea : Reports: dysuria PFSH ED PFSH: Medical History Abnormal urinalysis Anxiety Blister of toe of right foot Chronic bronchitis Chronic hip pain Chronic low back pain with left-sided sciatica Diabetes initially gestational age ~24, persisted and diagnosed as Type II diabetes, obese at onset, no change with weight loss Diabetic neuropathy Dyslipidemia Elevated transaminase level Encounter for smoking cessation counseling Fissure in skin of foot GERD (gastroesophageal reflux disease) Hemochromatosis Hepatitis C 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, s/p treatment with interferon in ~ 1999 by Eddie 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 History of MRSA infection diabetic wounds History of rheumatoid arthritis Hx of hepatitis C Hypothyroidism Leukocytosis Marijuana use Nicotine dependence, cigarettes, uncomplicated JOSE (obstructive sleep apnea) per sleep study 2010, CPAP of 13 recommended at that time, no longer with machine Osteoarthritis involving multiple joints on both sides of body PTSD (post-traumatic stress disorder) Supraventricular tachycardia (~04/2020) identified during ED visit 04/2020, treated with 6mg adenosine with conversion to sinus Uncontrolled diabetes mellitus Under or uninsured Surgical History History of hysterectomy (~2011) also Kimberly urethral plication History of incision and drainage (~2013) right upper extremity and R lower extremity History of tubal ligation History of umbilical hernia repair (~2011) Family History Father Diabetes Mother Diabetes Grandfather Pacemaker Denies family history of Stroke Social History Second hand smoke exposure: Yes Alcohol intake: never Marital status: Life Partner Number of children: 2 Number of grandchildren: 0 Current occupational status: unemployed Physical Exam Const: EXAM LIMITATIONS: no altered mental status GENERAL APPEARANCE: cooperative and ill appearing (Mild) NUTRITIONAL APPEARANCE: thin Eye: COMMON NORMALS: Equal, round and reactive pupils present and EOMs intact bilaterally PUPIL: Yes Equal, round and reactive pupils present Chest: COMMONS NORMALS: normal inspection of the chest Resp: COMMON NORMALS: normal respiratory effort, No use of accessory muscles and clear to auscultation bilaterally AUSCULTATION: clear to auscultation bilaterally Cardio: COMMON NORMALS: regular rate and regular rhythm RATE: regular rate RHYTHM: regular rhythm Course Vital Signs: Vital signs: Vital Signs Temperature 98.1 F 02/13/21 20:15 Pulse Rate 94 02/13/21 23:41 Respiratory Rate 16 02/13/21 23:41 Blood Pressure 144/66 02/13/21 23:41 Pulse Oximetry 98 02/13/21 23:41 MDM - Nausea/Vomiting/Diarrhea MDM Narrative: Medical decision making narrative: 45-year-old female with multiple symptoms. She is vaccinated. She has had 4 to 5 days of symptoms. Her COVID-19 rapid antigen is negative. White blood cell count of 13. Hemoglobin is 17.6. Her sodium is 125, likely pseudohyponatremia given her sugar is 500 on serum lab testing. She is given 12 units of IV insulin, with lowering of her sugar to mid 300s. On her last office visit in December, her hemoglobin A1c was 13.6. She is not acidotic. She is given 2 L of fluid and is feeling better chest x-ray does not reveal pneumonia. Laboratory essentially otherwise benign. She had not taken her Metformin or glipizide in the few days because of feeling ill. She was urged to do this. She does have a urinary tract infection. She was given IV Rocephin for this, and will go home on Macrobid. Lab Data: Labs: Lab Results 02/13/21 02/13/21 02/13/21 20:11 20:11 20:11 WBC 13.0 10^3/uL H 10 ^3/uL (4.0-10.0) RBC 5.71 10^6/uL H 10 ^6/uL (4.1-5.3) Hgb 17.6 g/dL H g/dL (11.5-15.3) Hct 48.6 % H % (37.0-47.0) MCV 85.1 fl fl (81-99) MCH 30.8 pg pg (28.0-34.0) MCHC 36.2 g/dL H g/dL (30.0-36.0) RDW 11.9 % L % (12.1-15.1) Plt Count 430 10^3/cmm H 10 ^3/cmm (130-400) MPV 9.2 fL fL (7.4-10.4) Neut % (Auto) 63.4 % % Lymph % (Auto) 26.7 % % Reynolds % (Auto) 7.9 % % Eos % (Auto) 0.9 % % Baso % (Auto) 0.6 % % Neut # (Auto) 8.26 10^3/uL H 10 ^3/uL (1.8-7.7) Lymph # (Auto) 3.5 10^3/uL 10^3/ uL (0.8-4.8) Reynolds # (Auto) 1.0 10^3/uL H 10^ 3/uL (0.2-0.9) Eos # (Auto) 0.1 10^3/uL 10^3/ uL (0.0-0.8) Baso # (Auto) 0.1 10^3/uL 10^3/ uL (0.0-0.1) Nucleated RBC % (a uto) 0 % % Nucleated RBCs # 0.0 /100WBC /100W BC Sodium 125 mmol/L L mmol /L (136-145) Potassium 4.4 mmol/L mmol/L (3.5-5.1) Chloride 84 mmol/L L mmol/ L (98-107) Carbon Dioxide 29 mmol/L mmol/L (22-29) Anion Gap 16.4 (5-19) BUN 14 mg/dL mg/dL (6-20) Creatinine 0.6 mg/dL mg/dL (0.5-0.9) GFR Calculation 107.2 mL/min mL/m in (90-130) Glucose 515 mg/dL H* mg/d L (65-115) POC Glucose Calculated Osmolal ity 284 mOsm/kg L mOs m/kg (285-295) Calcium 9.9 mg/dL mg/dL (8.5-10.5) Total Bilirubin 0.5 mg/dL mg/dL (0.15-1.2) AST 35 U/L H U/L (0-32) ALT 92 U/L H U/L (0-33) Alkaline Phosphata se 164 IU/L H IU/L (35-105) Total Protein 7.9 g/dL g/dL (6.6-8.7) Albumin 4.5 g/dL g/dL (3.5-5.2) Globulin 3.4 g/dL g/dL (1.3-4.6) Lipase 53 U/L U/L (13-60) HCG, Qual Negative (Negative) Urine Color Urine Appearance Urine pH Ur Specific Gravit y Urine Protein Urine Glucose (UA) Urine Ketones Urine Blood Urine Nitrate Urine Bilirubin Urine Urobilinogen Ur Leukocyte Ashanti ase Urine RBC Urine WBC Ur Squamous Epith Cells Amorphous Sediment Urine Bacteria Urine Yeast Urine Opiates Scre en Ur Barbiturates Sc reen Ur Phencyclidine S crn Ur Amphetamines Sc reen U Benzodiazepines Scrn Urine Cocaine Scre en U Marijuana (THC) Screen SARS-CoV-2 Ag (Rap id) 02/13/21 02/13/21 02/13/21 20:11 20:11 20:11 WBC RBC Hgb Hct MCV MCH MCHC RDW Plt Count MPV Neut % (Auto) Lymph % (Auto) Reynolds % (Auto) Eos % (Auto) Baso % (Auto) Neut # (Auto) Lymph # (Auto) Reynolds # (Auto) Eos # (Auto) Baso # (Auto) Nucleated RBC % (a uto) Nucleated RBCs # Sodium Potassium Chloride Carbon Dioxide Anion Gap BUN Creatinine GFR Calculation Glucose POC Glucose Calculated Osmolal ity Calcium Total Bilirubin AST ALT Alkaline Phosphata se Total Protein Albumin Globulin Lipase HCG, Qual Urine Color Yellow (Yellow) Urine Appearance Sl cloudy A (CLEAR) Urine pH 5 (5-7) Ur Specific Gravit y 1.010 (1.005-1.030) Urine Protein Neg (Negative) Urine Glucose (UA) 4+ H (Normal) Urine Ketones 1+ H (Negative) Urine Blood Neg (Negative) Urine Nitrate Negative (Negative) Urine Bilirubin Neg (Negative) Urine Urobilinogen Norm mg/dL mg/dL (Negative) Ur Leukocyte Ashanti ase Trace H (Negative) Urine RBC 0-4 /hpf H /hpf (0-2) Urine WBC 15-25 /hpf H /hpf (0-5) Ur Squamous Epith Cells 25-40 /hpf H /hpf (0-5) Amorphous Sediment 1+ /hpf /hpf Urine Bacteria 3+ /hpf H /hpf (NONE) Urine Yeast Trace /hpf /hpf Urine Opiates Scre en Negative ng/mL ng /mL (Negative) Ur Barbiturates Sc reen Negative ng/mL ng /mL (Negative) Ur Phencyclidine S crn Negative ng/mL ng /mL (Negative) Ur Amphetamines Sc reen Negative ng/mL ng /mL (Negative) U Benzodiazepines Scrn Negative ng/mL ng /mL (Negative) Urine Cocaine Scre en Negative ng/mL ng /mL (Negative) U Marijuana (THC) Screen Positive ng/mL H ng/mL (Negative) SARS-CoV-2 Ag (Rap id) Negative (Negative) 02/13/21 02/13/21 22:29 23:57 WBC RBC Hgb Hct MCV MCH MCHC RDW Plt Count MPV Neut % (Auto) Lymph % (Auto) Reynolds % (Auto) Eos % (Auto) Baso % (Auto) Neut # (Auto) Lymph # (Auto) Reynolds # (Auto) Eos # (Auto) Baso # (Auto) Nucleated RBC % (a uto) Nucleated RBCs # Sodium Potassium Chloride Carbon Dioxide Anion Gap BUN Creatinine GFR Calculation Glucose POC Glucose 363 mg/dL H mg/dL 276 mg/dL H mg/dL (70-110) (70-110) Calculated Osmolal ity Calcium Total Bilirubin AST ALT Alkaline Phosphata se Total Protein Albumin Globulin Lipase HCG, Qual Urine Color Urine Appearance Urine pH Ur Specific Gravit y Urine Protein Urine Glucose (UA) Urine Ketones Urine Blood Urine Nitrate Urine Bilirubin Urine Urobilinogen Ur Leukocyte Ashanti ase Urine RBC Urine WBC Ur Squamous Epith Cells Amorphous Sediment Urine Bacteria Urine Yeast Urine Opiates Scre en Ur Barbiturates Sc reen Ur Phencyclidine S crn Ur Amphetamines Sc reen U Benzodiazepines Scrn Urine Cocaine Scre en U Marijuana (THC) Screen SARS-CoV-2 Ag (Rap id) Discharge Plan Discharge Patient Disposition: Home Clinical Impression: Acute hyperglycemia, Acute dehydration Urinary tract infection Qualifiers: Urinary tract infection type: acute cystitis Hematuria presence: without hematuria Qualified Code(s): N30.00 - Acute cystitis without hematuria Condition: Stable Prescriptions: New Macrobid 100 mg capsule 100 mg PO BID 7 Days Qty: 14 RF: 0 No Action famotidine 20 mg tablet 20 mg PO DAILY Qty: 30 RF: 6 glipizide 10 mg tablet extended release 24hr 10 mg PO BID Qty: 60 RF: 5 metformin 500 mg tablet 1,000 mg PO BID Qty: 60 RF: 5 bupropion HCl 300 mg tablet extended release 24 hr 300 mg PO QAM Qty: 30 RF: 5 meloxicam [Mobic] 7.5 mg tablet 7.5 mg PO BID Qty: 60 RF: 1 levothyroxine 50 mcg tablet 50 mcg PO DAILY Qty: 90 RF: 3 nicotine 7 mg/24 hr patch 24 hour 1 patch transdermal Q24H Qty: 14 RF: 0 quetiapine 50 mg tablet 100 mg PO .hs PRN (Reason: insomnia) 90 Days Qty: 180 RF: 0 gabapentin 300 mg capsule 300 mg PO BID Qty: 60 RF: 3 amitriptyline 25 mg tablet 25 mg PO .qhs Qty: 30 RF: 5 atenolol 25 mg tablet 25 mg PO QAM RF: 0 Discharge Orders: Discharge ED (Routine); Ordered 02/13/21 Ordered By: Randy Yeager Referrals: Israel Otero MD [Primary Care Provider] - 4-7 days Discharge Diet: Diabetic Discharge Activity: Increase activity as tolerated Patient Instructions: Dehydration (ED), Urinary Tract Infection in Women (ED), Diabetic Hyperglycemia (ED) Activity Restrictions/Additional Instructions: Return for fever greater than 100 despite 3 doses of antibiotics, vomiting liquids or medications, shortness of breath, other concerning symptoms. Take your metformin and glipizide to ensure your sugar stays under control. Stand Alone Forms: Work/School Release Coding Level of Care Code ED Loan Assistant for Chg Fwd Exam Detailed
== END 2021-02-14 00:13 | disposition home or self-care (01) ==
PROVIDERS: Physician Assistant; Emergency Provider Emergency Medicine; PCP Family Medicine Adult Medicine
DX: N30.00 Acute cystitis without hematuria (principal); E11.65 Type 2 diabetes mellitus with hyperglycemia; E86.0 Dehydration; Z79.84 Long term (current) use of oral hypoglycemic drugs; E11.40 Type 2 diabetes mellitus with diabetic neuropathy, unspecified; E78.5 Hyperlipidemia, unspecified; Z86.19 Personal history of other infectious and parasitic diseases; Z77.22 Contact with and (suspected) exposure to environmental tobacco smoke (acute) (chronic); Z20.822 Contact with and (suspected) exposure to COVID-19
CPT/HCPCS: 36416; 71045; 80053; 80306; 81001; 82962; 83690; 84703; 85025; 87426; 96361; 96365; 96375; 99284; J0696; J1815; J1885; J2270; J2405; J7030

== ENCOUNTER 2021-03-09 16:18 | Emergency (ER) | payer MEDICAID, SELFPAY ==
--- NOTE | 2021-03-09 16:20 | XRR_ITS ---
PROCEDURE INFORMATION: Exam: XR Left Foot Exam date and time: 03/09/2021 4:20 PM Age: 45 years old Clinical indication: Pain; Foot; Left; Additional info: Rule out osteo TECHNIQUE: Imaging protocol: XR Left foot. Views: 1 or 2 views. COMPARISON: No relevant prior studies available. FINDINGS: Bones/joints: No acute fracture. No dislocation. Normal bone mineralization. No joint effusion. Joint spaces are maintained. No lytic or sclerotic bony lesions. Small plantar calcaneal bone spur. Soft tissues: Mild soft tissue swelling medial to the head of the 1st metatarsal. No soft tissue emphysema. No radiopaque foreign body. XR/XR foot LT 2V [id number] IMPRESSION: 1. No evidence for osteomyelitis. MRI without and with contrast may be obtained if there is continuing clinical concern for osteomyelitis. If the patient has any contradiction for MRI, 3 phase bone scan in conjunction with white blood cell scan may be obtained. 2. Mild soft tissue swelling medial to the head of the 1st metatarsal. 3. Incidental/nonacute findings are listed in the report. Radiation Dose CTDIVOL = (mGy): DLP = (mGy-cm)
[2021-03-09 17:01] VITALS: BP 158/94; PULSE 100; RESP 18; TEMP 36.8; O2SAT 99; BMI 20.9
[2021-03-09 17:16] LABS: Glucose Point of Care 438 mg/dL (70-110)
--- NOTE | 2021-03-09 17:25 | XRR_ITS ---
PROCEDURE INFORMATION: Exam: XR Chest Exam date and time: 03/09/2021 5:25 PM Age: 45 years old Clinical indication: Cough and dyspnea; Smoker's cough; Additional info: Dyspnea/cough TECHNIQUE: Imaging protocol: XR of the chest. Views: 1 view. COMPARISON: CR (CHEST, ) 02/13/2021 8:16 PM FINDINGS: Lungs: Lungs are clear bilaterally. Pleural spaces: No pleural effusion. No pneumothorax. Heart/Mediastinum: The cardiac silhouette and mediastinal contours are unremarkable. Bones/joints: Stable moderate scoliosis in the visualized spine. XR/XR chest 1V portable [id number] IMPRESSION: 1. No acute cardiopulmonary process. 2. Incidental/nonacute findings are listed in the report. Radiation Dose CTDIVOL = (mGy): DLP = (mGy-cm)
--- NOTE | 2021-03-09 17:26 | ECG_ITS ---
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
--- NOTE | 2021-03-09 17:26 | CTR_ITS ---
PROCEDURE INFORMATION: Exam: CT Abdomen And Pelvis With Contrast Exam date and time: 03/09/2021 5:26 PM Age: 45 years old Clinical indication: Abdominal pain; Localized; Right lower quadrant (rlq); Prior surgery; Surgery type: Hernia, hyst; Additional info: Abd pain. Right flank pain radiating to rlq TECHNIQUE: Imaging protocol: Computed tomography of the abdomen and pelvis with contrast. Sagittal and coronal reformatted images were created and reviewed. Radiation optimization: All CT scans at this facility use at least one of these dose optimization techniques: automated exposure control; mA and/or kV adjustment per patient size (includes targeted exams where dose is matched to clinical indication); or iterative reconstruction. Contrast material: OMNI 300; Contrast volume: 75 ml; Contrast route: INTRAVENOUS (IV); COMPARISON: US gall bladder [id number] 04/26/2020 5:44 PM RADIATION DOSE METRICS: Total DLP (mGy-cm): 795.12 FINDINGS: Lungs: Visualized lungs are clear. Pleural spaces: No pleural effusion. Heart: Visualized portions of the heart are unremarkable. Liver: Hypodense focus in the liver that cannot be further characterized on the current examination. This measures 1.2 cm (series 2, image 18). Gallbladder and bile ducts: The gallbladder is unremarkable. No biliary ductal dilatation. Pancreas: The pancreas is unremarkable. No pancreatic ductal dilatation. Spleen: Multiple calcified granulomas in the spleen. Adrenal glands: The right and left adrenal glands are unremarkable. Kidneys and ureters: The right and left kidneys are unremarkable. The right and left ureters are unremarkable. Stomach and bowel: No obstruction. No mucosal thickening. Appendix: The appendix is visualized and is unremarkable. No findings to suggest acute appendicitis. Intraperitoneal space: Small amount of free fluid in the pelvis. No free intraperitoneal air. No loculated fluid collections to suggest an abscess. Vasculature: Moderate atherosclerotic changes in the visualized arteries. No evidence for aortic aneurysm or aortic dissection. Hepatic veins, portal veins, splenic vein, and SMV are patent. Lymph nodes: No lymphadenopathy. Urinary bladder: Diffuse, moderate wall thickening of the bladder. Reproductive: Patient has had a previous hysterectomy. The right and left ovaries are not visualized, the patient may have had a previous bilateral oophorectomy. No abnormal adnexal masses. Bones/joints: Degenerative changes in the spine and hips. Mild levoscoliosis in the visualized spine. Soft tissues: Mild body wall edema. CT/CT abdomen pelvis w con* [id number] IMPRESSION: 1. Diffuse, moderate wall thickening of the bladder. In the correct clinical setting, this may suggest cystitis. Recommend correlation with laboratory findings. Alternatively, this may be secondary to chronic outlet obstruction. 2. Hypodense focus in the liver that cannot be further characterized on the current examination. Further evaluation with non-emergent liver MRI is recommended. 3. Patient has had a previous hysterectomy. The right and left ovaries are not visualized, the patient may have had a previous bilateral oophorectomy. No abnormal adnexal masses. 4. Small amount of free fluid in the pelvis. 5. Mild body wall edema. 6. Incidental/nonacute findings are listed in the report. Radiation Dose CTDIVOL = (mGy): DLP = 795.12 (mGy-cm)
--- NOTE | 2021-03-09 17:34 | PC.PHAR ---
pt states she takes care of her own medications-notes are made in the pharmacy comments some medications havent been filled since august 2020
[2021-03-09 17:41] LABS: Basophils # 0.1 10^3/uL (0.0-0.1); Basophils % 0.9 %; Eosinophils # 0.1 10^3/uL (0.0-0.8); Eosinophils % 1.2 %; Hematocrit 47.2 % (37.0-47.0); Hemoglobin 16.7 g/dL (11.5-15.3); Lymphocytes # 2.4 10^3/uL (0.8-4.8); Lymphocytes % 30.1 %; Mean Corpuscular HGB Conc 35.4 g/dL (30.0-36.0); Mean Corpuscular Hemoglobin 30.4 pg (28.0-34.0); Mean Corpuscular Volume 85.8 fl (81-99); Mean Platelet Volume 8.7 fL (7.4-10.4); Monocytes # 0.6 10^3/uL (0.2-0.9); Monocytes % 7.8 %; Neutrophils # 4.79 10^3/uL (1.8-7.7); Neutrophils % 59.8 %; Nucleated Red Blood Cells % 0 %; Platelet Count 381 10^3/cmm (130-400); Red Cell Distribution Width 12.1 % (12.1-15.1)
[2021-03-09 17:47] LABS: Add Urine Microscopic? NO; Charge for UA Resulting for Rev
[2021-03-09 17:49] LABS: Bilirubin Urine Neg (Negative); Blood Urine Neg (Negative); Glucose Urine UA 4+ (Normal); Ketones Urine Negative (Negative); Leukocyte Esterase Urine Negative (Negative); Nitrate Urine Negative (Negative); Protein Urine Neg (Negative); Urine Appearance Clear (CLEAR); Urine Color Straw (Yellow); Urobilinogen Urine Norm (Negative); pH Urine 5 (5-7)
[2021-03-09] MEDS: iohexol 300 mg/mL 100 mL Btl IV (17:51)
--- NOTE | 2021-03-09 17:54 | W.ED.GENADLT ---
Documented by User: Serafin Yu DO 03/10/21 14:50 HPI - General Adult General: Chief complaint: General Medical Stated complaint: R FLANK PAIN, R FOOT POSS DIABETIC ULCER Time Seen by Provider: 03/09/21 17:16 History of Present Illness: HPI narrative: 45-year-old female presents emergency room complaining of right flank pain for the last couple of days has not had any nausea or vomiting no hematochezia melena hematemesis. No dysuria urgency frequency or hematuria. She not had a fever. She does complain of some shortness of breath because of the discomfort is hard to take a deep breath. Has a secondary complaint is complaining of pain at the first MP joint left foot Onset (ago): day(s) Location: back (Right flank), left and lower extremity Severity: moderate Quality: stabbing Pain Consistency: intermittent Relieving factors: none Exacerbating factors: none Associated symptoms: Deny chest pain, confusion, cough, diaphoresis, decreased appetite, dyspnea, fevers/chills, headache(s), malaise, nausea, rash, palpitations, seizures, short of breath, syncope, vomiting or weakness Treatments prior to arrival: none Review of Systems Const: Denies: malaise or diaphoresis ENMT: Denies: throat pain, ear or mastoid pain, nasal discharge or nasal congestion Card: Denies: chest pain, palpitations or syncope Resp: Denies: dyspnea GI: Denies: nausea or vomiting : Denies: flank pain, difficulty voiding, dysuria, urinary frequency or urinary urgency Skin/Breast: Denies: rash Neuro: Denies: headache(s) or confusion PFSH ED PFSH: Medical History Abnormal urinalysis Anxiety Blister of toe of right foot Chronic bronchitis Chronic hip pain Chronic low back pain with left-sided sciatica Diabetes initially gestational age ~24, persisted and diagnosed as Type II diabetes, obese at onset, no change with weight loss Diabetic neuropathy Dyslipidemia Elevated transaminase level Encounter for smoking cessation counseling Fissure in skin of foot GERD (gastroesophageal reflux disease) Hemochromatosis Hepatitis C 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, s/p treatment with interferon in ~ 1999 by Eddie 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 History of MRSA infection diabetic wounds History of rheumatoid arthritis Hx of hepatitis C Hypothyroidism Leukocytosis Marijuana use Nicotine dependence, cigarettes, uncomplicated JOSE (obstructive sleep apnea) per sleep study 2010, CPAP of 13 recommended at that time, no longer with machine Osteoarthritis involving multiple joints on both sides of body PTSD (post-traumatic stress disorder) Supraventricular tachycardia (~04/2020) identified during ED visit 04/2020, treated with 6mg adenosine with conversion to sinus Uncontrolled diabetes mellitus Under or uninsured Surgical History History of hysterectomy (~2011) also Kimberly urethral plication History of incision and drainage (~2013) right upper extremity and R lower extremity History of tubal ligation History of umbilical hernia repair (~2011) Family History Father Diabetes Mother Diabetes Grandfather Pacemaker Denies family history of Stroke Social History Second hand smoke exposure: Yes Alcohol intake: never Marital status: Life Partner Number of children: 2 Number of grandchildren: 0 Current occupational status: unemployed Physical Exam Const: COMMON NORMALS: no acute distress GENERAL APPEARANCE: cooperative and comfortable ORIENTATION/CONSCIOUSNESS: Yes awake, Yes oriented to person, Yes oriented to place and Yes oriented to time HENMT: COMMON NORMALS: normocephalic, atraumatic and hearing grossly normal bilaterally HEAD & SCALP: normocephalic and atraumatic Neck/C-Spine: COMMON NORMALS: full ROM, no lymphadenopathy, supple and no JVD Lymph: LYMPHATIC: no lymphadenopathy noted and no lymphedema noted Resp: COMMON NORMALS: normal respiratory effort, No retractions, No use of accessory muscles and clear to auscultation bilaterally AUSCULTATION: clear to auscultation bilaterally Cardio: COMMON NORMALS: no JVD, regular rate, regular rhythm and No murmurs present (Cardio) RATE: regular rate RHYTHM: regular rhythm GI: COMMON NORMALS: Soft to palpation and No hepatosplenomegaly present AUSCULTATION: Yes normoactive bowel sounds PALPATION: Yes Soft to palpation, No Tenderness to palpation present (GI), No Guarding due to palpation present (GI) and Yes No hepatosplenomegaly present : COMMON NORMALS: Yes no CVA tenderness BLADDER/KIDNEY EXAM: Yes no CVA tenderness Back/Pelvis: COMMON NORMALS: no CVA tenderness Extremity: COMMON NORMALS: normal to inspection, capillary refill normal, no clubbing, cyanosis or edema, no calf tenderness and no pedal edema Neuro: SENSORIUM/ORIENTATION: Yes oriented to person, Yes oriented to place and Yes oriented to time Skin: COMMON NORMALS: no rashes or lesions noted GENERAL SKIN EXAM: no rashes or lesions noted Course Vital Signs: Vital signs: Vital Signs Temperature 98.2 F 03/09/21 17:01 Pulse Rate 84 03/09/21 18:26 Respiratory Rate 17 03/09/21 18:26 Blood Pressure 141/81 03/09/21 18:26 Pulse Oximetry 100 03/09/21 18:26 MDM - General Adult MDM Narrative: Medical decision making narrative: Care turned over to Dr. Frey at change of shift see his notes for final diagnosis and disposition. Lab Data: Labs: Lab Results 03/09/21 03/09/21 03/09/21 17:10 17:34 17:34 WBC 8.0 10^3/uL 10^3/ uL (4.0-10.0) RBC 5.50 10^6/uL H 10 ^6/uL (4.1-5.3) Hgb 16.7 g/dL H g/dL (11.5-15.3) Hct 47.2 % H % (37.0-47.0) MCV 85.8 fl fl (81-99) MCH 30.4 pg pg (28.0-34.0) MCHC 35.4 g/dL g/dL (30.0-36.0) RDW 12.1 % % (12.1-15.1) Plt Count 381 10^3/cmm 10^3 /cmm (130-400) MPV 8.7 fL fL (7.4-10.4) Neut % (Auto) 59.8 % % Lymph % (Auto) 30.1 % % [place] % (Auto) 7.8 % % Eos % (Auto) 1.2 % % Baso % (Auto) 0.9 % % Neut # (Auto) 4.79 10^3/uL 10^3 /uL (1.8-7.7) Lymph # (Auto) 2.4 10^3/uL 10^3/ uL (0.8-4.8) [place] # (Auto) 0.6 10^3/uL 10^3/ uL (0.2-0.9) Eos # (Auto) 0.1 10^3/uL 10^3/ uL (0.0-0.8) Baso # (Auto) 0.1 10^3/uL 10^3/ uL (0.0-0.1) Nucleated RBC % (a uto) 0 % % Nucleated RBCs # 0.0 /100WBC /100W BC Sodium 130 mmol/L L mmol /L (136-145) Potassium 4.2 mmol/L mmol/L (3.5-5.1) Chloride 88 mmol/L L mmol/ L (98-107) Carbon Dioxide 30 mmol/L H mmol/ L (22-29) Anion Gap 16.2 (5-19) BUN 9 mg/dL mg/dL (6-20) Creatinine 0.5 mg/dL mg/dL (0.5-0.9) GFR Calculation 132.2 mL/min H mL /min (90-130) Glucose 426 mg/dL H mg/dL (65-115) POC Glucose 438 mg/dL H mg/dL (70-110) Calculated Osmolal ity 287 mOsm/kg mOsm/ kg (285-295) Lactic Acid Calcium 9.9 mg/dL mg/dL (8.5-10.5) Magnesium 1.7 mg/dL mg/dL (1.7-2.3) Total Bilirubin 0.5 mg/dL mg/dL (0.15-1.2) AST 36 U/L H U/L (0-32) ALT 71 U/L H U/L (0-33) Alkaline Phosphata se 101 IU/L IU/L (35-105) Total Protein 7.9 g/dL g/dL (6.6-8.7) Albumin 4.5 g/dL g/dL (3.5-5.2) Globulin 3.4 g/dL g/dL (1.3-4.6) Lipase 30 U/L U/L (13-60) Urine Color Urine Appearance Urine pH Ur Specific Gravit y Urine Protein Urine Glucose (UA) Urine Ketones Urine Blood Urine Nitrate Urine Bilirubin Urine Urobilinogen Ur Leukocyte Ashanti ase Urine HCG, Qual Serum Ketones 03/09/21 03/09/21 03/09/21 17:34 17:34 17:34 WBC RBC Hgb Hct MCV MCH MCHC RDW Plt Count MPV Neut % (Auto) Lymph % (Auto) [place] % (Auto) Eos % (Auto) Baso % (Auto) Neut # (Auto) Lymph # (Auto) [place] # (Auto) Eos # (Auto) Baso # (Auto) Nucleated RBC % (a uto) Nucleated RBCs # Sodium Potassium Chloride Carbon Dioxide Anion Gap BUN Creatinine GFR Calculation Glucose POC Glucose Calculated Osmolal ity Lactic Acid 1.9 mmol/L mmol/L (0.5-2.2) Calcium Magnesium Total Bilirubin AST ALT Alkaline Phosphata se Total Protein Albumin Globulin Lipase Urine Color Urine Appearance Urine pH Ur Specific Gravit y Urine Protein Urine Glucose (UA) Urine Ketones Urine Blood Urine Nitrate Urine Bilirubin Urine Urobilinogen Ur Leukocyte Ash[place] ase Urine HCG, Qual Negative (Negative) Serum Ketones Negative (Negative) 03/09/21 03/09/21 03/09/21 17:34 18:36 20:06 WBC RBC Hgb Hct MCV MCH MCHC RDW Plt Count MPV Neut % (Auto) Lymph % (Auto) [place] % (Auto) Eos % (Auto) Baso % (Auto) Neut # (Auto) Lymph # (Auto) [place] # (Auto) Eos # (Auto) Baso # (Auto) Nucleated RBC % (a uto) Nucleated RBCs # Sodium Potassium Chloride Carbon Dioxide Anion Gap BUN Creatinine GFR Calculation Glucose POC Glucose 460 mg/dL H mg/dL 188 mg/dL H mg/dL (70-110) (70-110) Calculated Osmolal ity Lactic Acid Calcium Magnesium Total Bilirubin AST ALT Alkaline Phosphata se Total Protein Albumin Globulin Lipase Urine Color Straw (Yellow) Urine Appearance Clear (CLEAR) Urine pH 5 (5-7) Ur Specific Gravit y 1.010 (1.005-1.030) Urine Protein Neg (Negative) Urine Glucose (UA) 4+ H (Normal) Urine Ketones Negative (Negative) Urine Blood Neg (Negative) Urine Nitrate Negative (Negative) Urine Bilirubin Neg (Negative) Urine Urobilinogen Norm mg/dL mg/dL (Negative) Ur Leukocyte Ashanti ase Negative (Negative) Urine HCG, Qual Serum Ketones EKG Data^: EKG 1: Computer generated interpretation: Foot X-Ray 03/09/21 16:20 IMPRESSION: 1. No evidence for osteomyelitis. MRI without and with contrast may be obtained if there is continuing clinical concern for osteomyelitis. If the patient has any contradiction for MRI, 3 phase bone scan in conjunction with white blood cell scan may be obtained. 2. Mild soft tissue swelling medial to the head of the 1st metatarsal. 3. Incidental/nonacute findings are listed in the report. Radiation Dose CTDIVOL = (mGy): DLP = (mGy-cm) Chest X-Ray 03/09/21 17:25 IMPRESSION: 1. No acute cardiopulmonary process. 2. Incidental/nonacute findings are listed in the report. Radiation Dose CTDIVOL = (mGy): DLP = (mGy-cm) Abdomen/Pelvis CT 03/09/21 17:26 IMPRESSION: 1. Diffuse, moderate wall thickening of the bladder. In the correct clinical setting, this may suggest cystitis. Recommend correlation with laboratory findings. Alternatively, this may be secondary to chronic outlet obstruction. 2. Hypodense focus in the liver that cannot be further characterized on the current examination. Further evaluation with non-emergent liver MRI is recommended. 3. Patient has had a previous hysterectomy. The right and left ovaries are not visualized, the patient may have had a previous bilateral oophorectomy. No abnormal adnexal masses. 4. Small amount of free fluid in the pelvis. 5. Mild body wall edema. 6. Incidental/nonacute findings are listed in the report. Radiation Dose CTDIVOL = (mGy): DLP = 795.12 (mGy-cm) Discharge Plan Discharge Patient Disposition: Home Clinical Impression: Hyperglycemia, Abdominal pain Condition: Stable Prescriptions: New hydrocodone-acetaminophen 5-325 mg tablet 1 tab PO Q6H PRN (Reason: pain) Qty: 14 RF: 0 No Action glipizide 10 mg tablet extended release 24hr 10 mg PO BID Qty: 60 RF: 5 metformin 500 mg tablet 1,000 mg PO BID Qty: 60 RF: 5 bupropion HCl 300 mg tablet extended release 24 hr 300 mg PO QAM Qty: 30 RF: 5 gabapentin 300 mg capsule 300 mg PO BID Qty: 60 RF: 3 atenolol 25 mg tablet 25 mg PO QAM RF: 0 Tylenol Ex Str Rapid Release 500 mg Tablet 1,000 - 2,000 mg PO Q4H PRN (Reason: Pain) RF: 0 omeprazole 20 mg Capsule,Delayed Release(Dr/Ec) 20 mg PO DAILY PRN (Reason: Heartburn) RF: 0 Vitamin C 1 tab PO DAILY RF: 0 Vitamin D3 1 cap PO DAILY RF: 0 famotidine 20 mg tablet 20 mg PO QAM RF: 0 amitriptyline 25 mg tablet 25 mg PO BEDTIME RF: 0 levothyroxine 50 mcg tablet 50 mcg PO QAM RF: 0 nicotine 7 mg/24 hr patch 24 hour 1 patch transdermal Q24H PRN (Reason: Smoking Cessation) RF: 0 quetiapine 50 mg tablet 50 - 100 mg PO BEDTIME PRN (Reason: insomnia) RF: 0 Discharge Orders: Discharge ED (Routine); Ordered 03/09/21 Ordered By: Mic Frey Referrals: Israel Otero MD [Primary Care Provider] - Discharge Diet: Advance as tolerated Discharge Activity: Resume usual activity Patient Instructions: Abdominal Pain (ED), Opioid Safety Coding Level of Care Code ED Veneer Joiner for Chg Fwd Exam Comprehensive Documented by User: Mic Frey MD 03/09/21 20:17 HPI - General Adult General: Chief complaint: General Medical Stated complaint: R FLANK PAIN, R FOOT POSS DIABETIC ULCER Time Seen by Provider: 03/09/21 17:16 PFSH ED PFSH: Medical History Abnormal urinalysis Anxiety Blister of toe of right foot Chronic bronchitis Chronic hip pain Chronic low back pain with left-sided sciatica Diabetes initially gestational age ~24, persisted and diagnosed as Type II diabetes, obese at onset, no change with weight loss Diabetic neuropathy Dyslipidemia Elevated transaminase level Encounter for smoking cessation counseling Fissure in skin of foot GERD (gastroesophageal reflux disease) Hemochromatosis Hepatitis C 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, s/p treatment with interferon in ~ 1999 by Eddie 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 History of MRSA infection diabetic wounds History of rheumatoid arthritis Hx of hepatitis C Hypothyroidism Leukocytosis Marijuana use Nicotine dependence, cigarettes, uncomplicated JOSE (obstructive sleep apnea) per sleep study 2010, CPAP of 13 recommended at that time, no longer with machine Osteoarthritis involving multiple joints on both sides of body PTSD (post-traumatic stress disorder) Supraventricular tachycardia (~04/2020) identified during ED visit 04/2020, treated with 6mg adenosine with conversion to sinus Uncontrolled diabetes mellitus Under or uninsured Surgical History History of hysterectomy (~2011) also Kimberly urethral plication History of incision and drainage (~2013) right upper extremity and R lower extremity History of tubal ligation History of umbilical hernia repair (~2011) Family History Father Diabetes Mother Diabetes Grandfather Pacemaker Denies family history of Stroke Social History Second hand smoke exposure: Yes Alcohol intake: never Marital status: Life Partner Number of children: 2 Number of grandchildren: 0 Current occupational status: unemployed Physical Exam Const: COMMON NORMALS: no acute distress, patient oriented x3 and healthy appearing HENMT: COMMON NORMALS: normocephalic and atraumatic HEAD & SCALP: normocephalic and atraumatic Eye: COMMON NORMALS: Equal, round and reactive pupils present and EOMs intact bilaterally PUPIL: Yes Equal, round and reactive pupils present Neck/C-Spine: COMMON NORMALS: full ROM and supple Chest: COMMONS NORMALS: normal inspection of the chest and normal palpation of entire chest wall Resp: COMMON NORMALS: normal respiratory effort, No retractions, No use of accessory muscles and clear to auscultation bilaterally AUSCULTATION: clear to auscultation bilaterally Cardio: COMMON NORMALS: regular rate, regular rhythm and No murmurs present (Cardio) RATE: regular rate RHYTHM: regular rhythm GI: COMMON NORMALS: Normal to inspection, nondistended, normoactive bowel sounds present, Soft to palpation, non-tender and no masses PALPATION: Yes Soft to palpation Extremity: COMMON NORMALS: normal to inspection and full ROM Neuro: COMMON NORMALS: patient oriented x3, moves all extremities and no focal motor deficits Psych: COMMON NORMALS: mental status grossly normal, Normal thought process present and cooperative THOUGHT PROCESS: Normal thought process present Skin: COMMON NORMALS: no rashes or lesions noted and no wounds GENERAL SKIN EXAM: no rashes or lesions noted Course Vital Signs: Vital signs: Vital Signs Temperature 98.2 F 03/09/21 17:01 Pulse Rate 84 03/09/21 18:26 Respiratory Rate 17 03/09/21 18:26 Blood Pressure 141/81 03/09/21 18:26 Pulse Oximetry 100 03/09/21 18:26 MDM - General Adult MDM Narrative: Medical decision making narrative: Patient presents with abdominal pain with no acute findings. Her pain here is improved. She was found to be hyperglycemic and is diabetes. She is not in DKA. Her blood sugar here is improved. Will prescribe her pain meds she is stable for discharge is to follow-up with PCP and return if worsening. She understands agrees to plan. Lab Data: Labs: Lab Results 03/09/21 03/09/21 03/09/21 17:10 17:34 17:34 WBC 8.0 10^3/uL 10^3/ uL (4.0-10.0) RBC 5.50 10^6/uL H 10 ^6/uL (4.1-5.3) Hgb 16.7 g/dL H g/dL (11.5-15.3) Hct 47.2 % H % (37.0-47.0) MCV 85.8 fl fl (81-99) MCH 30.4 pg pg (28.0-34.0) MCHC 35.4 g/dL g/dL (30.0-36.0) RDW 12.1 % % (12.1-15.1) Plt Count 381 10^3/cmm 10^3 /cmm (130-400) MPV 8.7 fL fL (7.4-10.4) Neut % (Auto) 59.8 % % Lymph % (Auto) 30.1 % % [place] % (Auto) 7.8 % % Eos % (Auto) 1.2 % % Baso % (Auto) 0.9 % % Neut # (Auto) 4.79 10^3/uL 10^3 /uL (1.8-7.7) Lymph # (Auto) 2.4 10^3/uL 10^3/ uL (0.8-4.8) [place] # (Auto) 0.6 10^3/uL 10^3/ uL (0.2-0.9) Eos # (Auto) 0.1 10^3/uL 10^3/ uL (0.0-0.8) Baso # (Auto) 0.1 10^3/uL 10^3/ uL (0.0-0.1) Nucleated RBC % (a uto) 0 % % Nucleated RBCs # 0.0 /100WBC /100W BC Sodium 130 mmol/L L mmol /L (136-145) Potassium 4.2 mmol/L mmol/L (3.5-5.1) Chloride 88 mmol/L L mmol/ L (98-107) Carbon Dioxide 30 mmol/L H mmol/ L (22-29) Anion Gap 16.2 (5-19) BUN 9 mg/dL mg/dL (6-20) Creatinine 0.5 mg/dL mg/dL (0.5-0.9) GFR Calculation 132.2 mL/min H mL /min (90-130) Glucose 426 mg/dL H mg/dL (65-115) POC Glucose 438 mg/dL H mg/dL (70-110) Calculated Osmolal ity 287 mOsm/kg mOsm/ kg (285-295) Lactic Acid Calcium 9.9 mg/dL mg/dL (8.5-10.5) Magnesium 1.7 mg/dL mg/dL (1.7-2.3) Total Bilirubin 0.5 mg/dL mg/dL (0.15-1.2) AST 36 U/L H U/L (0-32) ALT 71 U/L H U/L (0-33) Alkaline Phosphata se 101 IU/L IU/L (35-105) Total Protein 7.9 g/dL g/dL (6.6-8.7) Albumin 4.5 g/dL g/dL (3.5-5.2) Globulin 3.4 g/dL g/dL (1.3-4.6) Lipase 30 U/L U/L (13-60) Urine Color Urine Appearance Urine pH Ur Specific Gravit y Urine Protein Urine Glucose (UA) Urine Ketones Urine Blood Urine Nitrate Urine Bilirubin Urine Urobilinogen Ur Leukocyte Ash[place] ase Urine HCG, Qual Serum Ketones 03/09/21 03/09/21 03/09/21 17:34 17:34 17:34 WBC RBC Hgb Hct MCV MCH MCHC RDW Plt Count MPV Neut % (Auto) Lymph % (Auto) [place] % (Auto) Eos % (Auto) Baso % (Auto) Neut # (Auto) Lymph # (Auto) [place] # (Auto) Eos # (Auto) Baso # (Auto) Nucleated RBC % (a uto) Nucleated RBCs # Sodium Potassium Chloride Carbon Dioxide Anion Gap BUN Creatinine GFR Calculation Glucose POC Glucose Calculated Osmolal ity Lactic Acid 1.9 mmol/L mmol/L (0.5-2.2) Calcium Magnesium Total Bilirubin AST ALT Alkaline Phosphata se Total Protein Albumin Globulin Lipase Urine Color Urine Appearance Urine pH Ur Specific Gravit y Urine Protein Urine Glucose (UA) Urine Ketones Urine Blood Urine Nitrate Urine Bilirubin Urine Urobilinogen Ur Leukocyte [place] ase Urine HCG, Qual Negative (Negative) Serum Ketones Negative (Negative) 03/09/21 03/09/21 03/09/21 17:34 18:36 20:06 WBC RBC Hgb Hct MCV MCH MCHC RDW Plt Count MPV Neut % (Auto) Lymph % (Auto) [place] % (Auto) Eos % (Auto) Baso % (Auto) Neut # (Auto) Lymph # (Auto) [place] # (Auto) Eos # (Auto) Baso # (Auto) Nucleated RBC % (a uto) Nucleated RBCs # Sodium Potassium Chloride Carbon Dioxide Anion Gap BUN Creatinine GFR Calculation Glucose POC Glucose 460 mg/dL H mg/dL 188 mg/dL H mg/dL (70-110) (70-110) Calculated Osmolal ity Lactic Acid Calcium Magnesium Total Bilirubin AST ALT Alkaline Phosphata se Total Protein Albumin Globulin Lipase Urine Color Straw (Yellow) Urine Appearance Clear (CLEAR) Urine pH 5 (5-7) Ur Specific Gravit y 1.010 (1.005-1.030) Urine Protein Neg (Negative) Urine Glucose (UA) 4+ H (Normal) Urine Ketones Negative (Negative) Urine Blood Neg (Negative) Urine Nitrate Negative (Negative) Urine Bilirubin Neg (Negative) Urine Urobilinogen Norm mg/dL mg/dL (Negative) Ur Leukocyte [place] ase Negative (Negative) Urine HCG, Qual Serum Ketones Imaging Data^: CXR: Radiologist's impression: [address] [address] XRay Report Signed Patient: Mena Zelaya Unit #: [id number] : 1975 Age/Sex: 45 / F ADM Date: 03/09/21 Loc: ER Room/Bed: Attending Dr: Ordering Provider/Ordering MD: Serafin Yu DO Date of Service: 03/09/21 Procedure(s): XR chest 1V portable [id number] Accession Number(s): [id number] Report Number: [id number] PROCEDURE INFORMATION: Exam: XR Chest Exam date and time: 03/09/2021 5:25 PM Age: 45 years old Clinical indication: Cough and dyspnea; Smoker's cough; Additional info: Dyspnea/cough TECHNIQUE: Imaging protocol: XR of the chest. Views: 1 view. COMPARISON: CR (CHEST, ) 02/13/2021 8:16 PM FINDINGS: Lungs: Lungs are clear bilaterally. Pleural spaces: No pleural effusion. No pneumothorax. Heart/Mediastinum: The cardiac silhouette and mediastinal contours are unremarkable. Bones/joints: Stable moderate scoliosis in the visualized spine. XR/XR chest 1V portable [id number] IMPRESSION: 1. No acute cardiopulmonary process. 2. Incidental/nonacute findings are listed in the report. Radiation Dose CTDIVOL = (mGy): DLP = (mGy-cm) Dictated By: Carrie Sky MD Signed By: Carrie Sky MD Signed Date/Time: 03/09/211800 DD/ 1725 CT Abd/Pel: Radiologist's impression: [address] [address] [address] Scan Report Signed Patient: Mena Zelaya Unit #: [id number] : 1975 Age/Sex: 45 / F ADM Date: 03/09/21 Loc: ER Room/Bed: Attending Dr: Ordering Provider/Ordering MD: Serafin Yu DO Date of Service: 03/09/21 Procedure(s): CT abdomen pelvis w con* [id number] Accession Number(s): [id number] Report Number: [id number] PROCEDURE INFORMATION: Exam: CT Abdomen And Pelvis With Contrast Exam date and time: 03/09/2021 5:26 PM Age: 45 years old Clinical indication: Abdominal pain; Localized; Right lower quadrant (rlq); Prior surgery; Surgery type: Hernia, hyst; Additional info: Abd pain. Right flank pain radiating to rlq TECHNIQUE: Imaging protocol: Computed tomography of the abdomen and pelvis with contrast. Sagittal and coronal reformatted images were created and reviewed. Radiation optimization: All CT scans at this facility use at least one of these dose optimization techniques: automated exposure control; mA and/or kV adjustment per patient size (includes targeted exams where dose is matched to clinical indication); or iterative reconstruction. Contrast material: OMNI 300; Contrast volume: 75 ml; Contrast route: INTRAVENOUS (IV); COMPARISON: US gall bladder [id number] 04/26/2020 5:44 PM RADIATION DOSE METRICS: Total DLP (mGy-cm): 795.12 FINDINGS: Lungs: Visualized lungs are clear. Pleural spaces: No pleural effusion. Heart: Visualized portions of the heart are unremarkable. Liver: Hypodense focus in the liver that cannot be further characterized on the current examination. This measures 1.2 cm (series 2, image 18). Gallbladder and bile ducts: The gallbladder is unremarkable. No biliary ductal dilatation. Pancreas: The pancreas is unremarkable. No pancreatic ductal dilatation. Spleen: Multiple calcified granulomas in the spleen. Adrenal glands: The right and left adrenal glands are unremarkable. Kidneys and ureters: The right and left kidneys are unremarkable. The right and left ureters are unremarkable. Stomach and bowel: No obstruction. No mucosal thickening. Appendix: The appendix is visualized and is unremarkable. No findings to suggest acute appendicitis. Intraperitoneal space: Small amount of free fluid in the pelvis. No free intraperitoneal air. No loculated fluid collections to suggest an abscess. Vasculature: Moderate atherosclerotic changes in the visualized arteries. No evidence for aortic aneurysm or aortic dissection. Hepatic veins, portal veins, splenic vein, and SMV are patent. Lymph nodes: No lymphadenopathy. Urinary bladder: Diffuse, moderate wall thickening of the bladder. Reproductive: Patient has had a previous hysterectomy. The right and left ovaries are not visualized, the patient may have had a previous bilateral oophorectomy. No abnormal adnexal masses. Bones/joints: Degenerative changes in the spine and hips. Mild levoscoliosis in the visualized spine. Soft tissues: Mild body wall edema. CT/CT abdomen pelvis w con* [id number] IMPRESSION: 1. Diffuse, moderate wall thickening of the bladder. In the correct clinical setting, this may suggest cystitis. Recommend correlation with laboratory findings. Alternatively, this may be secondary to chronic outlet obstruction. 2. Hypodense focus in the liver that cannot be further characterized on the current examination. Further evaluation with non-emergent liver MRI is recommended. 3. Patient has had a previous hysterectomy. The right and left ovaries are not visualized, the patient may have had a previous bilateral oophorectomy. No abnormal adnexal masses. 4. Small amount of free fluid in the pelvis. 5. Mild body wall edema. 6. Incidental/nonacute findings are listed in the report. Radiation Dose CTDIVOL = (mGy): DLP = 795.12 (mGy-cm) Dictated By: Carrie Sky MD Signed By: Carrie Sky MD Signed Date/Time: 03/09/211805 EKG Data^: EKG 1: Attestation: I personally reviewed and interpreted this EKG as follows: EKG interpretation date: 03/09/21 EKG interpretation time: 18:14 Interpretation: nsr hr [address] or t wave abnormalities qrs 73 qtc 387 Computer generated interpretation: Foot X-Ray 03/09/21 16:20 IMPRESSION: 1. No evidence for osteomyelitis. MRI without and with contrast may be obtained if there is continuing clinical concern for osteomyelitis. If the patient has any contradiction for MRI, 3 phase bone scan in conjunction with white blood cell scan may be obtained. 2. Mild soft tissue swelling medial to the head of the 1st metatarsal. 3. Incidental/nonacute findings are listed in the report. Radiation Dose CTDIVOL = (mGy): DLP = (mGy-cm) Chest X-Ray 03/09/21 17:25 IMPRESSION: 1. No acute cardiopulmonary process. 2. Incidental/nonacute findings are listed in the report. Radiation Dose CTDIVOL = (mGy): DLP = (mGy-cm) Abdomen/Pelvis CT 03/09/21 17:26
[2021-03-09 18:01] LABS: Lactic Sepsis W/Reflex 1.9 mmol/L (0.5-2.2)
[2021-03-09 18:14] LABS: Ketone (Acetest) Serum Negative (Negative)
[2021-03-09 18:15] LABS: Alanine Aminotransferase 71 U/L (0-33); Albumin Level 4.5 g/dL (3.5-5.2); Alkaline Phosphatase 101 IU/L (35-105); Anion Gap 16.2 (5-19); Aspartate Amino Transferase 36 U/L (0-32); Blood Urea Nitrogen 9 mg/dL (6-20); Calcium 9.9 mg/dL (8.5-10.5); Carbon Dioxide 30 mmol/L (22-29); Chloride 88 mmol/L (98-107); Globulin 3.4 g/dL (1.3-4.6); Glomerular Filtration Rate 132.2 mL/min (90-130); Glucose 426 mg/dL (65-115); Lipase 30 U/L (13-60); Magnesium 1.7 mg/dL (1.7-2.3); Osmolality Calculated 287 mOsm/kg (285-295); Potassium 4.2 mmol/L (3.5-5.1); Sodium 130 mmol/L (136-145); Total Bilirubin 0.5 mg/dL (0.15-1.2); Total Protein 7.9 g/dL (6.6-8.7)
[2021-03-09 18:26] VITALS: BP 141/81; PULSE 84; RESP 17; O2SAT 100
[2021-03-09] MEDS: sodium chloride 0.9% 1,000 ML 999 ML IV (18:27)
[2021-03-09 18:38] LABS: Glucose Point of Care 460 mg/dL (70-110)
[2021-03-09] MEDS: insulin regular-human 100 units/1 mL 10 UNIT IVP (18:40)
[2021-03-09] MEDS: HYDROcodone-acetaminophen 5-325 mg Tablet 1 TAB PO (19:55)
[2021-03-09 20:10] LABS: Glucose Point of Care 188 mg/dL (70-110)
== END 2021-03-09 21:48 | disposition home or self-care (01) ==
PROVIDERS: Emergency Medicine; Family Medicine; Emergency Provider Emergency Medicine; PCP Family Medicine Adult Medicine
DX: R10.9 Unspecified abdominal pain (principal); E11.65 Type 2 diabetes mellitus with hyperglycemia; Z79.84 Long term (current) use of oral hypoglycemic drugs; Z86.19 Personal history of other infectious and parasitic diseases; E11.40 Type 2 diabetes mellitus with diabetic neuropathy, unspecified; E78.5 Hyperlipidemia, unspecified; Z77.22 Contact with and (suspected) exposure to environmental tobacco smoke (acute) (chronic)
CPT/HCPCS: 36416; 71045; 73620; 74177; 80053; 81003; 81025; 82009; 82962; 83605; 83690; 83735; 85025; 93005; 96361; 96374; 99284; J1815; J7030; Q9967

== ENCOUNTER 2021-03-20 11:05 | Emergency (ER) | payer MEDICAID, SELFPAY ==
[2021-03-20 12:01] VITALS: BP 140/89; PULSE 127; RESP 22; TEMP 36.8; O2SAT 99
[2021-03-20 12:45] LABS: Add Urine Microscopic? NO; Charge for UA Resulting for Rev
--- NOTE | 2021-03-20 12:58 | ED_ITS ---
HPI - General Adult General: Chief complaint: Abdominal Pain Stated complaint: R SIDE ABD & BACK PAIN Time Seen by Provider: 03/20/21 12:07 History of Present Illness: HPI narrative: 45-year-old female with a history of diabetes, hematchromatosis, hepatitis C, hysterectomy who presents the emergency room with complaints of right-sided flank pain. Patient says the pain has been going on for last 3 weeks. Patient was seen and evaluated on 03/09/2021 for complaints of flank pain at that point time. Patient says that this pain is different from her prior flank pain. Patient reports some nausea and vomiting denies any decreased p.o. intake. Patient denies any fever chills, reports mildly dark stool. Patient denies any melena or hematochezia. Patient denies any iron intake, Pepto-Bismol taking. Patient reports some dysuria, denies hematuria or polyuria. Patient has no history of kidney stones. No other prior abdominal surgery and hysterectomy. Pain has not improved from 3 weeks ago. Onset: 3 weeks ago Duration:3 weeks Location:home Severity: moderate Review of Systems Narrative: Constitutional: No fever, no chills. HEENT: No vision changes CV: No chest pain, no palpitations PULM: no cough, no dyspnea. GI: No abdominal pain, no N/V/D. +dark stool : +dysuria MSKEL: No muscle pain SKIN: No new rashes, no lesions. NEURO: No headache, no focal weakness. 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 History of MRSA infection diabetic wounds History of rheumatoid arthritis Hx of hepatitis C Hypothyroidism Leukocytosis Marijuana use Nicotine dependence, cigarettes, uncomplicated JOSE (obstructive sleep apnea) per sleep study 2010, CPAP of 13 recommended at that time, no longer with machine Osteoarthritis involving multiple joints on both sides of body PTSD (post-traumatic stress disorder) Right flank pain, chronic Supraventricular tachycardia (~04/2020) identified during ED visit 04/2020, treated with 6mg adenosine with conversion to sinus Uncontrolled diabetes mellitus Surgical History History of hysterectomy (~2011) also Kimberly urethral plication History of incision and drainage (~2013) right upper extremity and R lower extremity History of tubal ligation History of umbilical hernia repair (~2011) Family History Father Diabetes Mother Diabetes Grandfather Pacemaker Denies family history of Stroke Social History Second hand smoke exposure: Yes Alcohol intake: never Marital status: Life Partner Number of children: 2 Number of grandchildren: 0 Current occupational status: unemployed Physical Exam Narrative: EXAM NARRATIVE: Head: Atraumatic Eyes: PERRL, conjunctiva without injection ENT: Mucous membrane moist NECK: Supple, ROM intact LUNGS: LCTAB, no crackles/rhonchi CV: Sinus tachycardia ABDOMEN: Soft, +mild R sided TTP. NO guarding rebound, guarding, rigidity. No CVA tenderness to percussion. Neg Childers/Neg McBurney's point tenderness, no suprabupic tenderness to palpation. EXTREMITY: Normal ROM SKIN: No rash or erythema NEURO: Awake and alert, no focal motor deficits PSYCH: Normal mood and affect Course Vital Signs: Vital signs: Vital Signs Temperature 98.3 F 03/20/21 12:01 Pulse Rate 102 H 03/20/21 15:45 Respiratory Rate 18 03/20/21 15:45 Blood Pressure 129/78 03/20/21 15:45 Pulse Oximetry 99 03/20/21 15:45 MDM - General Adult MDM Narrative: Medical decision making narrative: 45F w/ hx of hysterectomy presenting to the ED with R sided flank pain x 3 week not improving. On exam has mild tenderness to palpation. Patient is noted to have a hemoglobin of 17.7 consistent with prior findings of hemochromatosis. CTA abdomen/pelvis did not show any signs of occlusion secondary to hyperviscosity syndrome, renal artery aneurysm or dissection. No suspicion for acute infarction in the any of the abdominal vessels. Patient received 2 L treatment with significant improvement heart rate. Patient's pain improved with Toradol and Tylenol with codeine. Disposition: Discharge. Patient counseled regarding diagnostic impression, treatment plan. Patient given ED strict return precautions to return for continuation, worsening, or development of new symptoms. Instructed to f/u w/ PCP regarding symptoms today. Patient verbalized understanding. Lab Data: Labs: Lab Results 03/20/21 03/20/21 03/20/21 12:15 13:09 13:09 WBC 8.9 10^3/uL 10^3/ uL (4.0-10.0) RBC 5.75 10^6/uL H 10 ^6/uL (4.1-5.3) Hgb 17.7 g/dL H g/dL (11.5-15.3) Hct 49.6 % H % (37.0-47.0) MCV 86.3 fl fl (81-99) MCH 30.8 pg pg (28.0-34.0) MCHC 35.7 g/dL g/dL (30.0-36.0) RDW 11.8 % L % (12.1-15.1) Plt Count 371 10^3/cmm 10^3 /cmm (130-400) MPV 9.0 fL fL (7.4-10.4) Neut % (Auto) 58.0 % % Lymph % (Auto) 31.5 % % Victoria % (Auto) 7.8 % % Eos % (Auto) 1.5 % % Baso % (Auto) 1.0 % % Neut # (Auto) 5.15 10^3/uL 10^3 /uL (1.8-7.7) Lymph # (Auto) 2.8 10^3/uL 10^3/ uL (0.8-4.8) Victoria # (Auto) 0.7 10^3/uL 10^3/ uL (0.2-0.9) Eos # (Auto) 0.1 10^3/uL 10^3/ uL (0.0-0.8) Baso # (Auto) 0.1 10^3/uL 10^3/ uL (0.0-0.1) Nucleated RBC % (a uto) 0 % % Nucleated RBCs # 0.0 /100WBC /100W BC Sodium 128 mmol/L L mmol /L (136-145) Potassium 4.4 mmol/L mmol/L (3.5-5.1) Chloride 88 mmol/L L mmol/ L (98-107) Carbon Dioxide 27 mmol/L mmol/L (22-29) Anion Gap 17.4 (5-19) BUN 14 mg/dL mg/dL (6-20) Creatinine 0.4 mg/dL L mg/dL (0.5-0.9) GFR Calculation 171.1 mL/min H mL /min (90-130) Glucose 362 mg/dL H mg/dL (65-115) Calculated Osmolal ity 281 mOsm/kg L mOs m/kg (285-295) Calcium 10.4 mg/dL mg/dL (8.5-10.5) Total Bilirubin 0.7 mg/dL mg/dL (0.15-1.2) AST 36 U/L H U/L (0-32) ALT 86 U/L H U/L (0-33) Alkaline Phosphata se 111 IU/L H IU/L (35-105) Total Protein 7.5 g/dL g/dL (6.6-8.7) Albumin 4.7 g/dL g/dL (3.5-5.2) Globulin 2.8 g/dL g/dL (1.3-4.6) Lipase 23 U/L U/L (13-60) Ser , Sanket i-Qnt 2.19 mIU/mL mIU/m L Urine Color Yellow (Yellow) Urine Appearance Clear (CLEAR) Urine pH 5 (5-7) Ur Specific Gravit y 1.015 (1.005-1.030) Urine Protein Neg (Negative) Urine Glucose (UA) 4+ H (Normal) Urine Ketones Negative (Negative) Urine Blood Neg (Negative) Urine Nitrate Negative (Negative) Urine Bilirubin Neg (Negative) Urine Urobilinogen Norm mg/dL mg/dL (Negative) Ur Leukocyte Ashanti ase Negative (Negative) Imaging Data^: Other Imaging: Radiologist's impression: [address] [id number] Scan ReportSigned Patient: Mena Zelaya #: [id number]: [id number]#:[id number]/Sex: 45 / FADM Date: 03/20/21Loc: ERRoom/Bed:Attending Dr: Ordering Provider/Ordering MD: Becky Lama MD Date of Service: 03/20/21 Procedure(s): CT angio abdomen pelvis 61700 Accession Number(s): [id number] Report Number: [id number] PROCEDURE INFORMATION: Exam: CTA Abdomen and Pelvis With Contrast Exam date and time: 03/20/2021 1:16 PM Age: 45 years old Clinical indication: Abdominal pain; Localized; Other: Right; Prior surgery; Surgery date: 6+ months; Surgery type: Hyst, hernia; Patient HX: R sided abd pain w n/v; Additional info: Rule out dissection and vascular pathologies TECHNIQUE: Imaging protocol: Computed tomographic angiography of the abdomen and pelvis with contrast material. 3D rendering (Not supervised by radiologist): MIP and/or 3D reconstructed images were created by the technologist. Radiation optimization: All CT scans at this facility use at least one of these dose optimization techniques: automated exposure control; mA and/or kV adjustment per patient size (includes targeted exams where dose is matched to clinical indication); or iterative reconstruction. Contrast material: OMNI 350; Contrast volume: 75 ml; Contrast route: INTRAVENOUS (IV); COMPARISON: CT abdomen pelvis w con* [id number] 03/09/2021 5:48 PM RADIATION DOSE METRICS: Total DLP (mGy-cm): 506.5 FINDINGS: Aorta: No aortic aneurysm. No aortic dissection. Celiac trunk and mesenteric arteries: No occlusion or significant stenosis. Renal arteries: No occlusion or significant stenosis. 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 Right iliac arteries: No occlusion or significant stenosis. Left iliac arteries: No occlusion or significant stenosis. Liver: Hypodense focus in segment 8 described on previous study appears less conspicuous on today's study and not significantly changed. Focal fat deposition adjacent to the falciform ligament. Gallbladder and bile ducts: Unremarkable. No calcified stones. No ductal dilation. Pancreas: Unremarkable. No mass. No ductal dilation. Spleen: Multiple calcified granulomas in the spleen. No splenomegaly. Adrenal glands: Unremarkable. No mass. Kidneys and ureters: Unremarkable. No solid mass. No hydronephrosis. Stomach and bowel: Unremarkable. No obstruction. No mucosal thickening. Appendix: No evidence of appendicitis. Intraperitoneal space: Unremarkable. No free air. No significant fluid collection. Lymph nodes: Unremarkable. No enlarged lymph nodes. Urinary bladder: Mild circumferential wall thickening of the bladder, appears less conspicuous than on prior study. Reproductive: Destructive changes. Bones/joints: No acute fracture. Mild levoscoliosis of the lumbar spine with multilevel degenerative changes. Soft tissues: Unremarkable. CT/CT angio abdomen pelvis 17205 IMPRESSION: 1. Unremarkable CTA. 2. Mild circumferential wall thickening the bladder, less conspicuous than on prior study. Radiation Dose CTDIVOL = (mGy): DLP = 506.5 (mGy-cm) Dictated By:Jeramy Florian DOSigned By:Jeramy Florian DOSigned Date/Time:03/20/21 1519DD/ 1316 Discharge Plan Discharge Patient Disposition: Home Clinical Impression: Flank pain Condition: Stable Prescriptions: No Action glipizide 10 mg tablet extended release 24hr 10 mg PO BID Qty: 60 RF: 5 metformin 500 mg tablet 1,000 mg PO BID Qty: 60 RF: 5 gabapentin 300 mg capsule 900 mg PO BID Qty: 60 RF: 3 buspirone 10 mg tablet 10 mg PO TID Qty: 90 RF: 5 trazodone 100 mg tablet 100 mg PO .hs 30 Days Qty: 30 RF: 5 prednisone 20 mg tablet 40 mg PO DAILY Qty: 10 RF: 0 atenolol 25 mg tablet 25 mg PO QAM RF: 0 Tylenol Ex Str Rapid Release 500 mg Tablet 1,000 - 2,000 mg PO Q4H PRN (Reason: Pain) RF: 0 omeprazole 20 mg Capsule,Delayed Release(Dr/Ec) 20 mg PO DAILY PRN (Reason: Heartburn) RF: 0 Vitamin C 1 tab PO DAILY RF: 0 Vitamin D3 1 cap PO DAILY RF: 0 levothyroxine 50 mcg tablet 50 mcg PO QAM RF: 0 quetiapine 50 mg tablet 50 - 100 mg PO BEDTIME PRN (Reason: insomnia) RF: 0 Discharge Orders: Discharge ED (Routine); Ordered 03/20/21 Ordered By: Becky Lama Referrals: Israel Otero MD [Primary Care Provider] - Discharge Diet: Advance as tolerated Discharge Activity: Resume usual activity Patient Instructions: Flank Pain (ED) Activity Restrictions/Additional Instructions: Please follow-up with your primary care provider for further evaluation of your flank pain. Come back to the emergency room if your pain worsens, if any fever or chills, urinary complaints, or any new or concerning issues. 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
[2021-03-20] MEDS: sodium chloride 0.9% 1,000 ML 999 ML IV ×2 (13:12)
--- NOTE | 2021-03-20 13:16 | CTR_ITS ---
PROCEDURE INFORMATION: Exam: CTA Abdomen and Pelvis With Contrast Exam date and time: 03/20/2021 1:16 PM Age: 45 years old Clinical indication: Abdominal pain; Localized; Other: Right; Prior surgery; Surgery date: 6+ months; Surgery type: Hyst, hernia; Patient HX: R sided abd pain w n/v; Additional info: Rule out dissection and vascular pathologies TECHNIQUE: Imaging protocol: Computed tomographic angiography of the abdomen and pelvis with contrast material. 3D rendering (Not supervised by radiologist): MIP and/or 3D reconstructed images were created by the technologist. Radiation optimization: All CT scans at this facility use at least one of these dose optimization techniques: automated exposure control; mA and/or kV adjustment per patient size (includes targeted exams where dose is matched to clinical indication); or iterative reconstruction. Contrast material: OMNI 350; Contrast volume: 75 ml; Contrast route: INTRAVENOUS (IV); COMPARISON: CT abdomen pelvis w con* [id number] 03/09/2021 5:48 PM RADIATION DOSE METRICS: Total DLP (mGy-cm): 506.5 FINDINGS: Aorta: No aortic aneurysm. No aortic dissection. Celiac trunk and mesenteric arteries: No occlusion or significant stenosis. Renal arteries: No occlusion or significant stenosis. 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 Right iliac arteries: No occlusion or significant stenosis. Left iliac arteries: No occlusion or significant stenosis. Liver: Hypodense focus in segment 8 described on previous study appears less conspicuous on today's study and not significantly changed. Focal fat deposition adjacent to the falciform ligament. Gallbladder and bile ducts: Unremarkable. No calcified stones. No ductal dilation. Pancreas: Unremarkable. No mass. No ductal dilation. Spleen: Multiple calcified granulomas in the spleen. No splenomegaly. Adrenal glands: Unremarkable. No mass. Kidneys and ureters: Unremarkable. No solid mass. No hydronephrosis. Stomach and bowel: Unremarkable. No obstruction. No mucosal thickening. Appendix: No evidence of appendicitis. Intraperitoneal space: Unremarkable. No free air. No significant fluid collection. Lymph nodes: Unremarkable. No enlarged lymph nodes. Urinary bladder: Mild circumferential wall thickening of the bladder, appears less conspicuous than on prior study. Reproductive: Destructive changes. Bones/joints: No acute fracture. Mild levoscoliosis of the lumbar spine with multilevel degenerative changes. Soft tissues: Unremarkable. CT/CT angio abdomen pelvis [id number] IMPRESSION: 1. Unremarkable CTA. 2. Mild circumferential wall thickening the bladder, less conspicuous than on prior study. Radiation Dose CTDIVOL = (mGy): DLP = 506.5 (mGy-cm)
[2021-03-20 13:22] LABS: Bilirubin Urine Neg (Negative); Blood Urine Neg (Negative); Glucose Urine UA 4+ (Normal); Ketones Urine Negative (Negative); Leukocyte Esterase Urine Negative (Negative); Nitrate Urine Negative (Negative); Protein Urine Neg (Negative); Specific Gravity, Urine 1.015 (1.005-1.030); Urine Appearance Clear (CLEAR); Urine Color Yellow (Yellow); Urobilinogen Urine Norm (Negative); pH Urine 5 (5-7)
[2021-03-20 13:25] LABS: Basophils # 0.1 10^3/uL (0.0-0.1); Eosinophils # 0.1 10^3/uL (0.0-0.8); Eosinophils % 1.5 %; Hematocrit 49.6 % (37.0-47.0); Hemoglobin 17.7 g/dL (11.5-15.3); Lymphocytes # 2.8 10^3/uL (0.8-4.8); Lymphocytes % 31.5 %; Mean Corpuscular HGB Conc 35.7 g/dL (30.0-36.0); Mean Corpuscular Hemoglobin 30.8 pg (28.0-34.0); Mean Corpuscular Volume 86.3 fl (81-99); Monocytes # 0.7 10^3/uL (0.2-0.9); Monocytes % 7.8 %; Neutrophils # 5.15 10^3/uL (1.8-7.7); Nucleated Red Blood Cells % 0 %; Platelet Count 371 10^3/cmm (130-400); Red Blood Count 5.75 10^6/uL (4.1-5.3); Red Cell Distribution Width 11.8 % (12.1-15.1); White Blood Count 8.9 10^3/uL (4.0-10.0)
[2021-03-20 13:50] LABS: HCG Quantitative 2.19 mIU/mL
[2021-03-20 14:08] LABS: Alanine Aminotransferase 86 U/L (0-33); Albumin Level 4.7 g/dL (3.5-5.2); Alkaline Phosphatase 111 IU/L (35-105); Anion Gap 17.4 (5-19); Aspartate Amino Transferase 36 U/L (0-32); Blood Urea Nitrogen 14 mg/dL (6-20); Calcium 10.4 mg/dL (8.5-10.5); Carbon Dioxide 27 mmol/L (22-29); Chloride 88 mmol/L (98-107); Globulin 2.8 g/dL (1.3-4.6); Glomerular Filtration Rate 171.1 mL/min (90-130); Glucose 362 mg/dL (65-115); Lipase 23 U/L (13-60); Osmolality Calculated 281 mOsm/kg (285-295); Potassium 4.4 mmol/L (3.5-5.1); Sodium 128 mmol/L (136-145); Total Bilirubin 0.7 mg/dL (0.15-1.2); Total Protein 7.5 g/dL (6.6-8.7)
[2021-03-20] MEDS: iohexol 350 mg/mL 100 mL Btl IV (14:26)
[2021-03-20 14:30] VITALS: BP 122/88; PULSE 105; RESP 18; O2SAT 100
[2021-03-20] MEDS: ketorolac 30 mg/mL INJ IVP (14:58)
[2021-03-20] MEDS: acetaminophen-codeine 300-30mg Tablet 1 TAB PO (14:58)
[2021-03-20 15:45] VITALS: BP 129/78; PULSE 102; RESP 18; O2SAT 99
== END 2021-03-20 16:37 | disposition home or self-care (01) ==
PROVIDERS: Emergency Medicine; Emergency Provider Emergency Medicine; PCP Family Medicine Adult Medicine
DX: R10.9 Unspecified abdominal pain (principal); Z79.52 Long term (current) use of systemic steroids; Z79.899 Other long term (current) drug therapy; E83.119 Hemochromatosis, unspecified; F17.200 Nicotine dependence, unspecified, uncomplicated
CPT/HCPCS: 74174; 80053; 81003; 83690; 84702; 85025; 96361; 96374; 99283; J1885; J7030; Q9967

== ENCOUNTER → 2021-03-22 11:16 | Outpatient (BNVA) | payer MEDICAID, SELFPAY | PROVIDERS: PCP Family Medicine Adult Medicine; Visit Provider Family Medicine Adult Medicine | DX: R71.8 Other abnormality of red blood cells (principal); E11.9 Type 2 diabetes mellitus without complications; Z79.4 Long term (current) use of insulin; R93.2 Abnormal findings on diagnostic imaging of liver and biliary tract; R10.9 Unspecified abdominal pain; G89.29 Other chronic pain | CPT/HCPCS: 82728; 83550 ==

== ENCOUNTER 2021-04-19 14:26 | Outpatient (CLI) | payer MEDICAID, SELFPAY ==
--- NOTE | 2021-04-19 15:15 | MR_ITS ---
WS: [id number] INDICATION: Abnormal liver CT cirrhosis. TECHNIQUE: MR of the abdomen without gadolinium enhancement. Axial T2, axial CT fiesta, coronal 2-D f iesta, axial T1 fat sat, and dual Echo imaging. FINDINGS: Comparison CT March 20, 2020 And March 09, 2021. Mild hepatomegaly with diffuse fatty infiltration of the liver. Normal portal vein and splenic vein. Small T2 hyperintense lesion in the right hepatic lobe measuring 9 mm unchanged from prior CT. Sugges tion of increased T1 hyperintensity. This likely represents small cavernous hemangioma or possibly co mplex cyst. Dysplastic nodule with given history of cirrhosis less likely. Gadolinium not administere d. No other suspicious hepatic lesions. Adrenal glands are normal. No hydronephrosis in either kidney. Normal caliber upper abdominal aorta. Normal appearing gallbladder. Pancreatic head appears normal. Lumbar scoliosis. MR/MR abdomen wo con [id number] IMPRESSION: 1. Stable 9 mm lesion in right hepatic lobe likely represents cavernous sara ioma or complex cyst. Dysplastic nodule less likely. No other suspicious lesion s. This can be followed up in 6 months with contrast-enhanced CT abdomen pelvis liver protocol or MRI liver without and with gadolinium to confirm stability. 2. Mild hepatomegaly with mild diffuse fatty infiltration.
== END 2021-04-19 14:27 | disposition home or self-care (01) ==
LOC: RADSHAW 14:30
PROVIDERS: PCP Family Medicine Adult Medicine; Visit Provider Family Medicine Adult Medicine
DX: R93.2 Abnormal findings on diagnostic imaging of liver and biliary tract (principal); R10.9 Unspecified abdominal pain; G89.29 Other chronic pain; K76.9 Liver disease, unspecified; R16.0 Hepatomegaly, not elsewhere classified; K76.0 Fatty (change of) liver, not elsewhere classified
CPT/HCPCS: 74181

== ENCOUNTER → 2021-04-21 09:00 | Outpatient (BNVA) | payer MEDICAID, SELFPAY | PROVIDERS: PCP Family Medicine Adult Medicine; Visit Provider Internal Medicine | DX: Z86.19 Personal history of other infectious and parasitic diseases (principal); B18.2 Chronic viral hepatitis C; R79.89 Other specified abnormal findings of blood chemistry; R71.8 Other abnormality of red blood cells | CPT/HCPCS: 81256; 82105; 87902 ==

== ENCOUNTER 2021-05-06 08:16 | Emergency (ER) | payer MEDICAID, SELFPAY ==
--- NOTE | 2021-05-06 08:18 | W.ED.ABDPA2 ---
HPI - Abdominal Pain General: Chief Complaint: Urogenital-Female Stated Complaint: R SIDE PAIN Time Seen by Provider: 05/06/21 08:18 History of Present Illness: HPI narrative: 45-year-old female with approximately 2-month history of flank pain. She been seen here and she been evaluated in her doctor's office. She had abdominal CT as well as an abdominal CTA all of which have been negative she had a follow-up abdominal MRI to evaluate the liver which showed hemangioma but otherwise is unremarkable she has been off found to have elevated ferritin levels and polycythemic which she is seeing Dr. Morgan for. She has previously had hepatitis C and was treated with interferon. She denies any dysuria urgency frequency shortness of breath chest pain. She relates of the pain the lateral portion of the right flank. She not had any new rash or skin break. She did fall yesterday and hit her right elbow has a small hematoma and abrasion her last tetanus shot was over 10 years ago Associated Symptoms: Denies bloating, chills, coffee ground emesis, constipation, diarrhea, dysuria, fever(s), hematochezia, hematemesis, melena, nausea and vomiting Review of Systems Const: Denies: fever(s), chills, body aches, change in appetite, fatigue or malaise ENMT: Denies: throat pain, ear or mastoid pain, nasal discharge or nasal congestion Card: Denies: chest pain, edema, dyspnea on exertion or orthopnea Resp: Denies: dyspnea, productive cough or non-productive cough GI: Denies: abdominal pain, nausea, vomiting, hematemesis, coffee ground emesis, diarrhea, constipation, bloating, hematochezia or melena : Denies: flank pain, difficulty voiding, dysuria, urinary frequency or urinary urgency Skin/Breast: Denies: rash or pruritus PFSH ED PFSH: Medical History Abnormal liver CT Anxiety Chronic hip pain Chronic low back pain with left-sided sciatica Chronic nausea Diabetes type 2, uncontrolled Diabetic neuropathy Dyslipidemia Elevated ferritin, hemoglobin, and red blood cell count Elevated transaminase level Encounter for smoking cessation counseling GERD (gastroesophageal reflux disease) Hepatitis C 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, s/p treatment with interferon in ~ 1999 by Eddie 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 History of MRSA infection diabetic wounds History of rheumatoid arthritis Hx of hepatitis C Hypothyroidism Leukocytosis Marijuana use Nicotine dependence, cigarettes, uncomplicated JOSE (obstructive sleep apnea) per sleep study 2010, CPAP of 13 recommended at that time, no longer with machine Osteoarthritis involving multiple joints on both sides of body PTSD (post-traumatic stress disorder) Right flank pain, chronic Supraventricular tachycardia (~04/2020) identified during ED visit 04/2020, treated with 6mg adenosine with conversion to sinus Surgical History History of hysterectomy (~2011) also Kimberly urethral plication History of incision and drainage (~2013) right upper extremity and R lower extremity History of tubal ligation History of umbilical hernia repair (~2011) Family History Father Diabetes Mother Diabetes Grandfather Pacemaker Denies family history of Stroke Social History Smoking and tobacco status: current every day smoker cigarettes Packs smoked per day: 0.5 Second hand smoke exposure: Yes Alcohol intake: never Marital status: Life Partner Number of children: 2 Number of grandchildren: 0 Current occupational status: unemployed Physical Exam Const: COMMON NORMALS: no acute distress GENERAL APPEARANCE: cooperative and comfortable ORIENTATION/CONSCIOUSNESS: Yes awake, Yes oriented to person, Yes oriented to place and Yes oriented to time HENMT: COMMON NORMALS: normocephalic, atraumatic and hearing grossly normal bilaterally HEAD & SCALP: normocephalic and atraumatic Neck/C-Spine: COMMON NORMALS: no JVD Resp: COMMON NORMALS: normal respiratory effort, No retractions, No use of accessory muscles and clear to auscultation bilaterally AUSCULTATION: clear to auscultation bilaterally Cardio: COMMON NORMALS: no JVD, regular rate, regular rhythm and No murmurs present (Cardio) RATE: regular rate RHYTHM: regular rhythm GI: COMMON NORMALS: Soft to palpation and No hepatosplenomegaly present AUSCULTATION: Yes normoactive bowel sounds PALPATION: Yes Soft to palpation, No Tenderness to palpation present (GI), No Guarding due to palpation present (GI) and Yes No hepatosplenomegaly present Extremity: COMMON NORMALS: normal to inspection, capillary refill normal, no clubbing, cyanosis or edema, no calf tenderness and no pedal edema Neuro: SENSORIUM/ORIENTATION: Yes oriented to person, Yes oriented to place and Yes oriented to time Skin: COMMON NORMALS: no rashes or lesions noted GENERAL SKIN EXAM: no rashes or lesions noted Course Vital Signs: Vital signs: Vital Signs Temperature 98.2 F 05/06/21 08:24 Pulse Rate 112 H 05/06/21 09:06 Respiratory Rate 25 H 05/06/21 09:06 Blood Pressure 133/99 05/06/21 09:06 Pulse Oximetry 100 05/06/21 09:06 MDM - Abdominal Pain MDM Narrative: Medical decision making narrative: Uncontrolled diabetes mellitus. The remainder of her labs reviewed right flank pain otherwise I do not have a significant finding for you. Wearing go ahead and discharge her home. I did strongly encourage her to follow-up with primary care doctor to get better control of her diabetes. The flank pain has been ongoing issue for some time now. Gave her diclofenac to use as needed he has a distinctive musculoskeletal nature to it and the light touch and movement precipitated. Lab Data: Labs: Lab Results 05/06/21 05/06/21 05/06/21 08:30 08:45 08:45 WBC 6.7 10^3/uL 10^3/ uL (4.0-10.0) RBC 5.10 10^6/uL 10^6 /uL (4.1-5.3) Hgb 15.6 g/dL H g/dL (11.5-15.3) Hct 44.9 % % (37.0-47.0) MCV 88.0 fl fl (81-99) MCH 30.6 pg pg (28.0-34.0) MCHC 34.7 g/dL g/dL (30.0-36.0) RDW 11.4 % L % (12.1-15.1) Plt Count 292 10^3/cmm 10^3 /cmm (130-400) MPV 9.3 fL fL (7.4-10.4) Neut % (Auto) 65.3 % % Lymph % (Auto) 24.5 % % [place] % (Auto) 7.7 % % Eos % (Auto) 1.1 % % Baso % (Auto) 1.1 % % Neut # (Auto) 4.35 10^3/uL 10^3 /uL (1.8-7.7) Lymph # (Auto) 1.6 10^3/uL 10^3/ uL (0.8-4.8) [place] # (Auto) 0.5 10^3/uL 10^3/ uL (0.2-0.9) Eos # (Auto) 0.1 10^3/uL 10^3/ uL (0.0-0.8) Baso # (Auto) 0.1 10^3/uL 10^3/ uL (0.0-0.1) Nucleated RBC % (a uto) 0 % % Nucleated RBCs # 0.0 /100WBC /100W BC Specimen Type Sample Site ABG pH ABG pCO2 ABG pO2 ABG HCO3 ABG O2 Saturation ABG Base Excess Satish Test A-a O2 Gradient Hematocrit Hgb O2 Saturation Carboxyhemoglobin Methemoglobin Total Hemoglobin Ionized Calcium O2 Delivery Device Natural Resource Technician ID Sodium 131 mmol/L L mmol /L (136-145) Potassium 4.6 mmol/L mmol/L (3.5-5.1) Chloride 91 mmol/L L mmol/ L (98-107) Carbon Dioxide 23 mmol/L mmol/L (22-29) Anion Gap 21.6 H (5-19) BUN 17 mg/dL mg/dL (6-20) Creatinine 0.6 mg/dL mg/dL (0.5-0.9) GFR Calculation 107.2 mL/min mL/m in (90-130) Glucose 666 mg/dL H* mg/d L (65-115) Calculated Osmolal ity 305 mOsm/kg H mOs m/kg (285-295) Calcium 9.2 mg/dL mg/dL (8.5-10.5) Total Bilirubin 0.3 mg/dL mg/dL (0.15-1.2) AST 49 U/L H U/L (0-32) ALT 102 U/L H U/L (0-33) Alkaline Phosphata se 164 IU/L H IU/L (35-105) Total Protein 7.1 g/dL g/dL (6.6-8.7) Albumin 4.5 g/dL g/dL (3.5-5.2) Globulin 2.6 g/dL g/dL (1.3-4.6) Urine Color Yellow (Yellow) Urine Appearance Clear (CLEAR) Urine pH 5 (5-7) Ur Specific Gravit y 1.010 (1.005-1.030) Urine Protein Neg (Negative) Urine Glucose (UA) 4+ H (Normal) Urine Ketones Negative (Negative) Urine Blood Neg (Negative) Urine Nitrate Negative (Negative) Urine Bilirubin Neg (Negative) Urine Urobilinogen Norm mg/dL mg/dL (Negative) Ur Leukocyte Ash[place] ase Negative (Negative) Serum Ketones 05/06/21 05/06/21 08:45 09:21 WBC RBC Hgb Hct MCV MCH MCHC RDW Plt Count MPV Neut % (Auto) Lymph % (Auto) [place] % (Auto) Eos % (Auto) Baso % (Auto) Neut # (Auto) Lymph # (Auto) [place] # (Auto) Eos # (Auto) Baso # (Auto) Nucleated RBC % (a uto) Nucleated RBCs # Specimen Type Arterial Sample Site Radial, left ABG pH 7.38 (7.35-7.45) ABG pCO2 40.2 mmHg mmHg (35-45) ABG pO2 90.0 mmHg mmHg (80.0-100.0) ABG HCO3 23.5 mmol/L mmol/ L (22-26) ABG O2 Saturation 97.8 ABG Base Excess -1.6 mmol/L mmol/ L (-2.0-2.0) Satish Test Pos A-a O2 Gradient 1.2 mmHg L mmHg (5-10) Hematocrit 46.4 % % (37-47) Hgb O2 Saturation 94.6 % L % (95-100) Carboxyhemoglobin 2.9 %THgb %THgb (0.4-20.1) Methemoglobin 0.4 % % (0.4-1.5) Total Hemoglobin 15.1 g/dL g/dL (12-16) Ionized Calcium 1.2 mmol/L mmol/L (1.1-1.4) O2 Delivery Device Room air Natural Resource Technician ID Cak Sodium 130.0 mmol/L L mm ol/L (131-143) Potassium 4.5 mmol/L mmol/L (3.5-5.0) Chloride Carbon Dioxide Anion Gap BUN Creatinine GFR Calculation Glucose 663.0 mg/dL H mg/ dL (70-115) Calculated Osmolal ity Calcium Total Bilirubin AST ALT Alkaline Phosphata se Total Protein Albumin Globulin Urine Color Urine Appearance Urine pH Ur Specific Gravit y Urine Protein Urine Glucose (UA) Urine Ketones Urine Blood Urine Nitrate Urine Bilirubin Urine Urobilinogen Ur Leukocyte Ash[place] ase Serum Ketones Negative (Negative) Discharge Plan Discharge Patient Disposition: Home Clinical Impression: Right flank pain, chronic, Diabetes type 2, uncontrolled Condition: Stable Prescriptions: New diclofenac sodium 75 mg tablet,delayed release (DR/EC) 75 mg PO Q12H PRN (Reason: pain) Qty: 20 RF: 0 Held celecoxib 200 mg capsule 200 mg PO BID PRN (Reason: pain) Qty: 60 RF: 1 Hold Instructions: Resume on 05/17/21. No Action glipizide 10 mg tablet extended release 24hr 10 mg PO BID Qty: 60 RF: 5 metformin 500 mg tablet 1,000 mg PO BID Qty: 60 RF: 5 buspirone 10 mg tablet 10 mg PO TID Qty: 90 RF: 5 trazodone 100 mg tablet 100 mg PO .hs 30 Days Qty: 30 RF: 5 prednisone 20 mg tablet 40 mg PO DAILY Qty: 10 RF: 0 ondansetron 4 mg tablet,disintegrating 4 mg PO Q8H Qty: 20 RF: 1 (DME) blood-glucose meter Misc See Rx Instructions .Route Qty: 1 RF: 0 (DME) Accu-Chek Guide test strips Strip See Rx Instructions .Route Qty: 100 RF: 2 (DME) lancets [BD Ultra Fine Lancets] 33 gauge misc See Rx Instructions .Route Qty: 100 RF: 0 gabapentin 300 mg capsule 900 mg PO TID 30 Days Qty: 270 RF: 1 tramadol 100 mg tablet 100 mg PO BID 30 Days Qty: 60 RF: 1 quetiapine 50 mg tablet See Rx Instructions .ROUTE .COMPLEX Qty: 180 RF: 0 atenolol 25 mg tablet 25 mg PO QAM RF: 0 Zofran 4 mg tablet 4 mg PO TID PRN (Reason: nausea and vomiting) 4 Days Qty: 12 RF: 0 acetaminophen 500 mg tablet 500 mg PO Q6H PRN (Reason: pain) 5 Days Qty: 20 RF: 0 Pepcid 20 mg tablet 20 mg PO BID PRN (Reason: abdominal pain) 10 Days Qty: 20 RF: 0 Maalox Advanced 1,000-60 mg tablet,chewable 1 tab PO TID PRN (Reason: abdominal pain) 7 Days Qty: 21 RF: 0 Tylenol Ex Str Rapid Release 500 mg Tablet 1,000 - 2,000 mg PO Q4H PRN (Reason: Pain) RF: 0 omeprazole 20 mg Capsule,Delayed Release(Dr/Ec) 20 mg PO DAILY PRN (Reason: Heartburn) RF: 0 Vitamin C 1 tab PO DAILY RF: 0 Vitamin D3 1 cap PO DAILY RF: 0 levothyroxine 50 mcg tablet 50 mcg PO QAM RF: 0 Discharge Orders: Discharge ED (Routine); Ordered 05/10/21 Ordered By: Serafin Yu Referrals: Israel Otero MD [Primary Care Provider] - Patient Instructions: Opioid Safety Stand Alone Forms: Work/School Release Coding Level of Care Code ED Motion Study Engineer for Bertg Fwd Exam Comprehensive
[2021-05-06 08:24] VITALS: BP 139/79; PULSE 117; RESP 16; TEMP 36.8; O2SAT 99; BMI 22.6
[2021-05-06 08:35] LABS: Add Urine Microscopic? NO; Charge for UA Resulting for Rev
--- NOTE | 2021-05-06 08:40 | XR_ITS ---
WS: [id number] XR elbow RT min 3V* [id number] REASON FOR EXAM: pain/trauma FINDINGS: No fracture or dislocation. No focal bone lesion or periosteal reaction. No soft tissue abnormality. XR/XR elbow RT min 3V* [id number] IMPRESSION: No acute abnormality.
[2021-05-06 08:53] LABS: Basophils # 0.1 10^3/uL (0.0-0.1); Basophils % 1.1 %; Eosinophils # 0.1 10^3/uL (0.0-0.8); Eosinophils % 1.1 %; Hematocrit 44.9 % (37.0-47.0); Hemoglobin 15.6 g/dL (11.5-15.3); Lymphocytes # 1.6 10^3/uL (0.8-4.8); Lymphocytes % 24.5 %; Mean Corpuscular HGB Conc 34.7 g/dL (30.0-36.0); Mean Corpuscular Hemoglobin 30.6 pg (28.0-34.0); Mean Platelet Volume 9.3 fL (7.4-10.4); Monocytes # 0.5 10^3/uL (0.2-0.9); Monocytes % 7.7 %; Neutrophils # 4.35 10^3/uL (1.8-7.7); Neutrophils % 65.3 %; Nucleated Red Blood Cells % 0 %; Platelet Count 292 10^3/cmm (130-400); Red Cell Distribution Width 11.4 % (12.1-15.1); White Blood Count 6.7 10^3/uL (4.0-10.0)
[2021-05-06 08:56] LABS: Bilirubin Urine Neg (Negative); Blood Urine Neg (Negative); Glucose Urine UA 4+ (Normal); Ketones Urine Negative (Negative); Leukocyte Esterase Urine Negative (Negative); Nitrate Urine Negative (Negative); Protein Urine Neg (Negative); Urine Appearance Clear (CLEAR); Urine Color Yellow (Yellow); Urobilinogen Urine Norm (Negative); pH Urine 5 (5-7)
[2021-05-06 09:06] VITALS: BP 133/99; PULSE 112; RESP 25; O2SAT 100
[2021-05-06 09:10] LABS: Alanine Aminotransferase 102 U/L (0-33); Albumin Level 4.5 g/dL (3.5-5.2); Alkaline Phosphatase 164 IU/L (35-105); Anion Gap 21.6 (5-19); Aspartate Amino Transferase 49 U/L (0-32); Blood Urea Nitrogen 17 mg/dL (6-20); Calcium 9.2 mg/dL (8.5-10.5); Carbon Dioxide 23 mmol/L (22-29); Chloride 91 mmol/L (98-107); Globulin 2.6 g/dL (1.3-4.6); Glomerular Filtration Rate 107.2 mL/min (90-130); Osmolality Calculated 305 mOsm/kg (285-295); Potassium 4.6 mmol/L (3.5-5.1); Sodium 131 mmol/L (136-145); Total Bilirubin 0.3 mg/dL (0.15-1.2); Total Protein 7.1 g/dL (6.6-8.7)
[2021-05-06 09:15] LABS: Glucose 666 mg/dL (65-115)
[2021-05-06] MEDS: ketorolac 30 mg/mL INJ IVP (09:17)
[2021-05-06] MEDS: tetanus-dipt-pertussis 0.5 mL SDV IM (09:18)
[2021-05-06 09:33] LABS: ABG PCO2 40.2 mmHg (35-45); ABG PH Result 7.38 (7.35-7.45); Alveolar-Arterial Oxygen Gradi 1.2 mmHg (5-10); Arterial Blood Gas Hematocrit 46.4 % (37-47); Base Excess ABG -1.6 mmol/L (-2.0-2.0); Blood Gas Allen Test Pos; Blood Gas Operator Identificat CAK; Blood Gas Sample Site Radial, left; Blood Gas Sample Type Arterial; Carboxyhemoglobin 2.9 %THgb (0.4-20.1); HCO3 ABG 23.5 mmol/L (22-26); HGB O2 Sat 94.6 % (95-100); Ionized Calcium Level - ABG 1.2 mmol/L (1.1-1.4); Methemoglobin 0.4 % (0.4-1.5); Oxygen Device ROOM AIR; Oxygen Saturation ABG 97.8; Potassium Level - ABG 4.5 mmol/L (3.5-5.0); Total Hemoglobin 15.1 g/dL (12-16)
[2021-05-06] MEDS: sodium chloride 0.9% 1,000 ML 999 ML IV ×2 (10:01→10:05)
[2021-05-06 10:11] LABS: Ketone (Acetest) Serum Negative (Negative)
[2021-05-06] MEDS: insulin regular-human 100 units/1 mL 10 UNIT IVP (10:24)
--- NOTE | 2021-05-06 10:40 | ECG_ITS ---
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
== END 2021-05-06 11:36 | disposition home or self-care (01) ==
PROVIDERS: Emergency Provider Family Medicine; PCP Family Medicine Adult Medicine
DX: R10.9 Unspecified abdominal pain (principal); E11.9 Type 2 diabetes mellitus without complications; Z79.84 Long term (current) use of oral hypoglycemic drugs; E78.5 Hyperlipidemia, unspecified; Z86.19 Personal history of other infectious and parasitic diseases; F17.210 Nicotine dependence, cigarettes, uncomplicated; Z23 Encounter for immunization
CPT/HCPCS: 36600; 73080; 80051; 80053; 81003; 82009; 82330; 82805; 85025; 90471; 90715; 93005; 96374; 96375; 99284; 99291; J1815; J1885; J2930; J7030

== ENCOUNTER 2021-05-08 19:38 | Emergency (ER) | payer MEDICAID, SELFPAY ==
[2021-05-08 19:51] VITALS: BP 152/100; PULSE 126; RESP 99; TEMP 37.1; O2SAT 99
--- NOTE | 2021-05-08 20:18 | CTR_ITS ---
PROCEDURE INFORMATION: Exam: CT Abdomen And Pelvis With Contrast Exam date and time: 05/08/2021 8:18 PM Age: 45 years old Clinical indication: Abdominal pain; Localized; Right lower quadrant (rlq); Prior surgery; Surgery date: 6+ months; Surgery type: Hsyt, hernia; Additional info: Eval for infection, rlq pain TECHNIQUE: Imaging protocol: Computed tomography of the abdomen and pelvis with contrast. Radiation optimization: All CT scans at this facility use at least one of these dose optimization techniques: automated exposure control; mA and/or kV adjustment per patient size (includes targeted exams where dose is matched to clinical indication); or iterative reconstruction. Contrast material: OMNI 300; Contrast volume: 95 ml; Contrast route: INTRAVENOUS (IV); COMPARISON: MR abdomen wo con [id number] 04/19/2021 4:23 PM RADIATION DOSE METRICS: Total DLP (mGy-cm): 861.4 FINDINGS: Liver: Circumscribed low-attenuation non simple liver lesion measures 1.3 cm greatest transverse diameter centrally in the right hepatic lobe stable in size from recent comparison MRI. Favor benign hemangioma. Gallbladder and bile ducts: Normal. No calcified stones. No ductal dilation. Pancreas: Normal. No ductal dilation. Spleen: Splenic granulomas. Adrenal glands: Normal. No mass. Kidneys and ureters: Normal. No hydronephrosis. Stomach and bowel: Unremarkable. No obstruction. No mucosal thickening. Appendix: No evidence of appendicitis. Intraperitoneal space: Unremarkable. No free air. No significant fluid collection. Vasculature: Unremarkable. No abdominal aortic aneurysm. Lymph nodes: Unremarkable. No enlarged lymph nodes. Urinary bladder: Unremarkable as visualized. Reproductive: Hysterectomy. Bones/joints: Unremarkable. No acute fracture. Soft tissues: Unremarkable. CT/CT abdomen pelvis w con* [id number] IMPRESSION: Negative for acute abdominopelvic pathology.
--- NOTE | 2021-05-08 20:34 | W.ED.GENADLT ---
HPI - General Adult General: Chief complaint: Abdominal Pain Stated complaint: Abd Pain Time Seen by Provider: 05/08/21 20:16 History of Present Illness: HPI narrative: Patient is a 45-year-old female with history of tubal ligation, hysterectomy presents emergency room for chest pain right sided flank and back pain x3 days. Patient was initially seen evaluated 3 days ago in the emergency room. Since then, patient has had significant worsening of pain. Reports nausea but no vomiting, denies any fever or chills. Patient denies any urinary symptoms, history of cancer, or other prior abdominal surgeries any melena or hematochezia. Patient also reports R sided chest pain x 1 day. Provider note from , patient at that point time was document to have 2-month history of flank pain. Patient tells me that the plan pain has been going on today for the last 3 days Onset:3 days ago Duration:3 days Location:home Severity:moderate Review of Systems Narrative: Constitutional: No fever, no chills. HEENT: No vision changes CV: No chest pain, no palpitations PULM: no cough, no dyspnea. GI: +R sided abdominal pain, +N/-V/-D. : No dysuria MSKEL: No muscle pain SKIN: No new rashes, no lesions. NEURO: No headache, no focal weakness. HEME: No visible bruises PSYCH: Normal mood PFSH ED PFSH: Medical History Abnormal liver CT Anxiety Chronic hip pain Chronic low back pain with left-sided sciatica Chronic nausea Diabetes type 2, uncontrolled Diabetic neuropathy Dyslipidemia Elevated ferritin, hemoglobin, and red blood cell count Elevated transaminase level Encounter for smoking cessation counseling GERD (gastroesophageal reflux disease) Hepatitis C 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, s/p treatment with interferon in ~ 1999 by Eddie 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 History of MRSA infection diabetic wounds History of rheumatoid arthritis Hx of hepatitis C Hypothyroidism Leukocytosis Marijuana use Nicotine dependence, cigarettes, uncomplicated JOSE (obstructive sleep apnea) per sleep study 2010, CPAP of 13 recommended at that time, no longer with machine Osteoarthritis involving multiple joints on both sides of body PTSD (post-traumatic stress disorder) Right flank pain, chronic Supraventricular tachycardia (~04/2020) identified during ED visit 04/2020, treated with 6mg adenosine with conversion to sinus Surgical History History of hysterectomy (~2011) also Kimberly urethral plication History of incision and drainage (~2013) right upper extremity and R lower extremity History of tubal ligation History of umbilical hernia repair (~2011) Family History Father Diabetes Mother Diabetes Grandfather Pacemaker Denies family history of Stroke Social History Smoking and tobacco status: current every day smoker cigarettes Packs smoked per day: 0.5 Second hand smoke exposure: Yes Alcohol intake: never Marital status: Life Partner Number of children: 2 Number of grandchildren: 0 Current occupational status: unemployed Physical Exam Narrative: EXAM NARRATIVE: Head: Atraumatic Eyes: PERRL, conjunctiva without injection ENT: Mucous membrane moist NECK: Supple, ROM intact LUNGS: LCTAB, no crackles/rhonchi CV: RRR ABDOMEN: Soft, +R flank focal TTP. NO guarding rebound, guarding, rigidity. +RCVA tenderness to percussion. Neg Childers/Neg McBurney's point tenderness, no suprabupic tenderness to palpation. EXTREMITY: Normal ROM SKIN: No rash or erythema NEURO: Awake and alert, no focal motor deficits PSYCH: Normal mood and affect Course Vital Signs: Vital signs: Vital Signs Temperature 99.1 F 05/08/21 20:50 Pulse Rate 95 05/08/21 21:54 Respiratory Rate 16 05/08/21 21:54 Blood Pressure 144/92 05/08/21 20:50 Pulse Oximetry 99 05/08/21 21:54 MDM - General Adult MDM Narrative: Medical decision making narrative: 65-year-old female presents emergency room with worsening 1 week of right-sided flank pain. On exam, patient has mild tenderness palpation in the right flank plus right CVA tenderness. White count is 10.6. Patient is noted to be hemoconcentrated 16. Sodium 130. Glucose of 400. S/p 2L of NS. HR improved to the 90s. UA is consistent with glucose only. Mild anion gap noted in the setting vomiting and idarrhea, likely dehydration. ABG showed pH of 7.42, unlikely to be DKA-related. Improved with Zofran, morphine, IVF. CT abdomen negative for any acute pathologies. No suspicion for other acute intra-abdominal pathology including SBO, biliary pathology, appendicitis, diverticulitis, or other emergent condition requiring surgery. Rx tylenol PRN abd pain, maalox/pepcid PRN dyspepsia, and zofran PRN nausea/vomiting Disposition: Discharge. Patient counseled regarding diagnostic impression, treatment plan. Patient given ED strict return precautions to return for continuation, worsening, or development of new symptoms. Instructed to f/u w/ PCP regarding symptoms today. Patient verbalized understanding. Lab Data: Labs: Lab Results 05/08/21 05/08/21 05/08/21 20:00 20:00 20:00 WBC 9.6 10^3/uL 10^3/ uL (4.0-10.0) RBC 5.13 10^6/uL 10^6 /uL (4.1-5.3) Hgb 16.0 g/dL H g/dL (11.5-15.3) Hct 44.8 % % (37.0-47.0) MCV 87.3 fl fl (81-99) MCH 31.2 pg pg (28.0-34.0) MCHC 35.7 g/dL g/dL (30.0-36.0) RDW 11.5 % L % (12.1-15.1) Plt Count 307 10^3/cmm 10^3 /cmm (130-400) MPV 9.0 fL fL (7.4-10.4) Neut % (Auto) 61.7 % % Lymph % (Auto) 27.9 % % Winston % (Auto) 7.8 % % Eos % (Auto) 1.5 % % Baso % (Auto) 0.8 % % Neut # (Auto) 5.94 10^3/uL 10^3 /uL (1.8-7.7) Lymph # (Auto) 2.7 10^3/uL 10^3/ uL (0.8-4.8) Winston # (Auto) 0.8 10^3/uL 10^3/ uL (0.2-0.9) Eos # (Auto) 0.1 10^3/uL 10^3/ uL (0.0-0.8) Baso # (Auto) 0.1 10^3/uL 10^3/ uL (0.0-0.1) Nucleated RBC % (a uto) 0 % % Nucleated RBCs # 0.0 /100WBC /100W BC PT INR APTT Specimen Type Sample Site ABG pH ABG pCO2 ABG pO2 ABG HCO3 ABG Base Excess Satish Test Hematocrit O2 Delivery Device FiO2 Size Mixer ID Sodium 130 mmol/L L mmol /L (136-145) Potassium 4.3 mmol/L mmol/L (3.5-5.1) Chloride 91 mmol/L L mmol/ L (98-107) Carbon Dioxide 21 mmol/L L mmol/ L (22-29) Anion Gap 22.3 H (5-19) BUN 24 mg/dL H mg/dL (6-20) Creatinine 0.5 mg/dL mg/dL (0.5-0.9) GFR Calculation 132.2 mL/min H mL /min (90-130) Glucose 400 mg/dL H mg/dL (65-115) Calculated Osmolal ity 291 mOsm/kg mOsm/ kg (285-295) Lactate 1.9 mmol/L mmol/L (0.5-2.2) Calcium 9.1 mg/dL mg/dL (8.5-10.5) Total Bilirubin 0.4 mg/dL mg/dL (0.15-1.2) AST 32 U/L U/L (0-32) ALT 85 U/L H U/L (0-33) Alkaline Phosphata se 119 IU/L H IU/L (35-105) Troponin T Gen 5 n g/L Total Protein 6.9 g/dL g/dL (6.6-8.7) Albumin 4.5 g/dL g/dL (3.5-5.2) Globulin 2.4 g/dL g/dL (1.3-4.6) Lipase 51 U/L U/L (13-60) HCG, Qual Urine Color Urine Appearance Urine pH Ur Specific Gravit y Urine Protein Urine Glucose (UA) Urine Ketones Urine Blood Urine Nitrate Urine Bilirubin Urine Urobilinogen Ur Leukocyte Ashanti ase Serum Ketones 05/08/21 05/08/21 05/08/21 20:00 20:00 20:00 WBC RBC Hgb Hct MCV MCH MCHC RDW Plt Count MPV Neut % (Auto) Lymph % (Auto) Winston % (Auto) Eos % (Auto) Baso % (Auto) Neut # (Auto) Lymph # (Auto) Winston # (Auto) Eos # (Auto) Baso # (Auto) Nucleated RBC % (a uto) Nucleated RBCs # PT INR APTT Specimen Type Sample Site ABG pH ABG pCO2 ABG pO2 ABG HCO3 ABG Base Excess Satish Test Hematocrit O2 Delivery Device FiO2 Size Mixer ID Sodium Potassium Chloride Carbon Dioxide Anion Gap BUN Creatinine GFR Calculation Glucose Calculated Osmolal ity Lactate Calcium Total Bilirubin AST ALT Alkaline Phosphata se Troponin T Gen 5 n g/L 8 ng/L ng/L (0-10) Total Protein Albumin Globulin Lipase HCG, Qual Negative (Negative) Urine Color Urine Appearance Urine pH Ur Specific Gravit y Urine Protein Urine Glucose (UA) Urine Ketones Urine Blood Urine Nitrate Urine Bilirubin Urine Urobilinogen Ur Leukocyte Ashanti ase Serum Ketones Negative (Negative) 05/08/21 05/08/21 05/08/21 21:14 21:14 21:48 WBC RBC Hgb Hct MCV MCH MCHC RDW Plt Count MPV Neut % (Auto) Lymph % (Auto) Winston % (Auto) Eos % (Auto) Baso % (Auto) Neut # (Auto) Lymph # (Auto) Winston # (Auto) Eos # (Auto) Baso # (Auto) Nucleated RBC % (a uto) Nucleated RBCs # PT 13.60 SECONDS SEC ONDS (12.1-14.9) INR 1.01 (0.8-1.2) APTT 23.9 SECONDS SECO NDS (23.9-36.7) Specimen Type Arterial Sample Site Radial, left ABG pH 7.42 (7.35-7.45) ABG pCO2 40.9 mmHg mmHg (35-45) ABG pO2 88.6 mmHg mmHg (80.0-100.0) ABG HCO3 26.3 mmol/L H mmo l/L (22-26) ABG Base Excess 1.6 mmol/L mmol/L (-2.0-2.0) Satish Test Pos Hematocrit 44.4 % % (37-47) O2 Delivery Device Room air FiO2 21.0 % % Size Mixer ID Nicer2 Sodium Potassium Chloride Carbon Dioxide Anion Gap BUN Creatinine GFR Calculation Glucose Calculated Osmolal ity Lactate Calcium Total Bilirubin AST ALT Alkaline Phosphata se Troponin T Gen 5 n g/L Total Protein Albumin Globulin Lipase HCG, Qual Urine Color Yellow (Yellow) Urine Appearance Clear (CLEAR) Urine pH 5 (5-7) Ur Specific Gravit y 1.015 (1.005-1.030) Urine Protein Neg (Negative) Urine Glucose (UA) 4+ H (Normal) Urine Ketones Negative (Negative) Urine Blood Neg (Negative) Urine Nitrate Negative (Negative) Urine Bilirubin Neg (Negative) Urine Urobilinogen Norm mg/dL mg/dL (Negative) Ur Leukocyte Ashanti ase Negative (Negative) Serum Ketones Imaging Data^: Other Imaging: Radiologist's impression: [address] [id number] ReportSigned Patient: Mena Cano #: [id number]: 1975Acct#:[id number]/Sex: 45 / FADM Date: 05/08/21Loc: [facility]/Bed:Attending Dr: Ordering Provider/Ordering MD: Becky Lama MD Date of Service: 05/08/21 Procedure(s): XR chest 1V portable [id number] Accession Number(s): [id number] Report Number: [id number] PROCEDURE INFORMATION: Exam: XR Chest Exam date and time: 05/08/2021 8:35 PM Age: 45 years old Clinical indication: Chest wall pain; Additional info: R sided chest pain TECHNIQUE: Imaging protocol: XR of the chest. Views: 1 view. COMPARISON: CR XR chest 1V portable [id number] 03/09/2021 5:43 PM FINDINGS: Lungs: Unremarkable. No consolidation. Pleural spaces: Unremarkable. No pleural effusion. No pneumothorax. Heart/Mediastinum: Unremarkable. No cardiomegaly. Bones/joints: Unremarkable. XR/XR chest 1V portable [id number] IMPRESSION: No acute findings. Dictated By:George Allred By:George Allred Date/Time:05/08/21/ [address] [id number] Scan ReportSigned Patient: Mena Cano #: [id number]: 1975Acct#:[id number]/Sex: 45 / FADM Date: 05/08/21Loc: [facility]/Bed:Attending Dr: Ordering Provider/Ordering MD: Becky Lama MD Date of Service: 05/08/21 Procedure(s): CT abdomen pelvis w con* [id number] Accession Number(s): [id number] Report Number: [id number] PROCEDURE INFORMATION: Exam: CT Abdomen And Pelvis With Contrast Exam date and time: 05/08/2021 8:18 PM Age: 45 years old Clinical indication: Abdominal pain; Localized; Right lower quadrant (rlq); Prior surgery; Surgery date: 6+ months; Surgery type: Hsyt, hernia; Additional info: Eval for infection, rlq pain TECHNIQUE: Imaging protocol: Computed tomography of the abdomen and pelvis with contrast. Radiation optimization: All CT scans at this facility use at least one of these dose optimization techniques: automated exposure control; mA and/or kV adjustment per patient size (includes targeted exams where dose is matched to clinical indication); or iterative reconstruction. Contrast material: OMNI 300; Contrast volume: 95 ml; Contrast route: INTRAVENOUS (IV); COMPARISON: MR abdomen wo con [id number] 04/19/2021 4:23 PM RADIATION DOSE METRICS: Total DLP (mGy-cm): 861.4 FINDINGS: Liver: Circumscribed low-attenuation non simple liver lesion measures 1.3 cm greatest transverse diameter centrally in the right hepatic lobe stable in size from recent comparison MRI. Favor benign hemangioma. Gallbladder and bile ducts: Normal. No calcified stones. No ductal dilation. Pancreas: Normal. No ductal dilation. Spleen: Splenic granulomas. Adrenal glands: Normal. No mass. Kidneys and ureters: Normal. No hydronephrosis. Stomach and bowel: Unremarkable. No obstruction. No mucosal thickening. Appendix: No evidence of appendicitis. Intraperitoneal space: Unremarkable. No free air. No significant fluid collection. Vasculature: Unremarkable. No abdominal aortic aneurysm. Lymph nodes: Unremarkable. No enlarged lymph nodes. Urinary bladder: Unremarkable as visualized. Reproductive: Hysterectomy. Bones/joints: Unremarkable. No acute fracture. Soft tissues: Unremarkable. CT/CT abdomen pelvis w con* [id number] IMPRESSION: Negative for acute abdominopelvic pathology. Dictated By:Frame,KevinSigned By:Frame,KevinSigned Date/Time:05/08/212128DD/ 17 Discharge Plan Discharge Patient Disposition: Home Clinical Impression: Abdominal pain Condition: Stable Prescriptions: New Zofran 4 mg tablet 4 mg PO TID PRN (Reason: nausea and vomiting) 4 Days Qty: 12 RF: 0 acetaminophen 500 mg tablet 500 mg PO Q6H PRN (Reason: pain) 5 Days Qty: 20 RF: 0 Pepcid 20 mg tablet 20 mg PO BID PRN (Reason: abdominal pain) 10 Days Qty: 20 RF: 0 Maalox Advanced 1,000-60 mg tablet,chewable 1 tab PO TID PRN (Reason: abdominal pain) 7 Days Qty: 21 RF: 0 No Action glipizide 10 mg tablet extended release 24hr 10 mg PO BID Qty: 60 RF: 5 metformin 500 mg tablet 1,000 mg PO BID Qty: 60 RF: 5 buspirone 10 mg tablet 10 mg PO TID Qty: 90 RF: 5 trazodone 100 mg tablet 100 mg PO .hs 30 Days Qty: 30 RF: 5 prednisone 20 mg tablet 40 mg PO DAILY Qty: 10 RF: 0 celecoxib 200 mg capsule 200 mg PO BID PRN (Reason: pain) Qty: 60 RF: 1 Hold Instructions: Resume on 05/17/21. ondansetron 4 mg tablet,disintegrating 4 mg PO Q8H Qty: 20 RF: 1 (DME) blood-glucose meter Misc See Rx Instructions .Route Qty: 1 RF: 0 (DME) Accu-Chek Guide test strips Strip See Rx Instructions .Route Qty: 100 RF: 2 (DME) lancets [BD Ultra Fine Lancets] 33 gauge misc See Rx Instructions .Route Qty: 100 RF: 0 gabapentin 300 mg capsule 900 mg PO TID 30 Days Qty: 270 RF: 1 tramadol 100 mg tablet 100 mg PO BID 30 Days Qty: 60 RF: 1 quetiapine 50 mg tablet See Rx Instructions .ROUTE .COMPLEX Qty: 180 RF: 0 atenolol 25 mg tablet 25 mg PO QAM RF: 0 Tylenol Ex Str Rapid Release 500 mg Tablet 1,000 - 2,000 mg PO Q4H PRN (Reason: Pain) RF: 0 omeprazole 20 mg Capsule,Delayed Release(Dr/Ec) 20 mg PO DAILY PRN (Reason: Heartburn) RF: 0 Vitamin C 1 tab PO DAILY RF: 0 Vitamin D3 1 cap PO DAILY RF: 0 levothyroxine 50 mcg tablet 50 mcg PO QAM RF: 0 diclofenac sodium 75 mg tablet,delayed release (DR/EC) 75 mg PO Q12H PRN (Reason: pain) Qty: 20 RF: 0 Discharge Orders: Discharge ED (Routine); Ordered 05/08/21 Ordered By: Becky Lama Referrals: Israel Otero MD [Primary Care Provider] - Discharge Diet: Advance as tolerated Discharge Activity: Resume usual activity Patient Instructions: Abdominal Pain (ED) Activity Restrictions/Additional Instructions: Please come back if you have any worsening abdominal pain, fever or chills, nausea or vomiting, diarrhea, blood in the stool, inability hold down liquid or solids, or any new concerning complaints. Coding Level of Care Code ED [place] Technician for Esperanza Hernandez
--- NOTE | 2021-05-08 20:35 | ECG_ITS ---
[facility] Test Date: 2021-05-08 Pat Name: Mena Cano Department: Room: Gender: Female Lab Support Service Tech: : 1975 Requested By: Becky Lama Order Number: [id number] Reading MD: MELITON GARCIA Measurements Intervals [place] Rate: 103 P: 57 NC: 156 QRS: 19 QRSD: 73 T: 49 QT: 321 QTc: 421 Interpretive Statements SINUS TACHYCARDIA ABNORMAL RHYTHM ECG Compared to ECG 05/06/2021 08:56:02 No significant changes Electronically Signed On 05-09-2021 19:59:47 METAL MODEL MAKER by MELITON GARCIA [id number]
--- NOTE | 2021-05-08 20:35 | XRR_ITS ---
PROCEDURE INFORMATION: Exam: XR Chest Exam date and time: 05/08/2021 8:35 PM Age: 45 years old Clinical indication: Chest wall pain; Additional info: R sided chest pain TECHNIQUE: Imaging protocol: XR of the chest. Views: 1 view. COMPARISON: CR XR chest 1V portable [id number] 03/09/2021 5:43 PM FINDINGS: Lungs: Unremarkable. No consolidation. Pleural spaces: Unremarkable. No pleural effusion. No pneumothorax. Heart/Mediastinum: Unremarkable. No cardiomegaly. Bones/joints: Unremarkable. XR/XR chest 1V portable [id number] IMPRESSION: No acute findings.
[2021-05-08 20:50] VITALS: BP 144/92; PULSE 105; RESP 19; TEMP 37.3; O2SAT 99
[2021-05-08 20:53] VITALS: RESP 19; O2SAT 99
[2021-05-08] MEDS: ondansetron 2 mg/ML SDV 2 mL 4 MG IVP (20:53)
[2021-05-08] MEDS: morphine 4 mg/mL SDV 1 mL IVP (20:53)
[2021-05-08] MEDS: iohexol 300 mg/mL 100 mL Btl IV (21:01)
[2021-05-08 21:07] LABS: Basophils # 0.1 10^3/uL (0.0-0.1); Basophils % 0.8 %; Eosinophils # 0.1 10^3/uL (0.0-0.8); Eosinophils % 1.5 %; Hematocrit 44.8 % (37.0-47.0); Lymphocytes # 2.7 10^3/uL (0.8-4.8); Lymphocytes % 27.9 %; Mean Corpuscular HGB Conc 35.7 g/dL (30.0-36.0); Mean Corpuscular Hemoglobin 31.2 pg (28.0-34.0); Mean Corpuscular Volume 87.3 fl (81-99); Monocytes # 0.8 10^3/uL (0.2-0.9); Monocytes % 7.8 %; Neutrophils # 5.94 10^3/uL (1.8-7.7); Neutrophils % 61.7 %; Nucleated Red Blood Cells % 0 %; Platelet Count 307 10^3/cmm (130-400); Red Blood Count 5.13 10^6/uL (4.1-5.3); Red Cell Distribution Width 11.5 % (12.1-15.1); White Blood Count 9.6 10^3/uL (4.0-10.0)
[2021-05-08 21:21] LABS: Troponin T (5th) Once 8 ng/L (0-10)
[2021-05-08 21:22] LABS: Lactate (Lactic Acid level) 1.9 mmol/L (0.5-2.2)
[2021-05-08 21:25] LABS: Alanine Aminotransferase 85 U/L (0-33); Albumin Level 4.5 g/dL (3.5-5.2); Alkaline Phosphatase 119 IU/L (35-105); Anion Gap 22.3 (5-19); Aspartate Amino Transferase 32 U/L (0-32); Blood Urea Nitrogen 24 mg/dL (6-20); Calcium 9.1 mg/dL (8.5-10.5); Carbon Dioxide 21 mmol/L (22-29); Chloride 91 mmol/L (98-107); Globulin 2.4 g/dL (1.3-4.6); Glomerular Filtration Rate 132.2 mL/min (90-130); Glucose 400 mg/dL (65-115); Lipase 51 U/L (13-60); Osmolality Calculated 291 mOsm/kg (285-295); Potassium 4.3 mmol/L (3.5-5.1); Sodium 130 mmol/L (136-145); Total Bilirubin 0.4 mg/dL (0.15-1.2); Total Protein 6.9 g/dL (6.6-8.7)
[2021-05-08 21:30] LABS: Add Urine Microscopic? NO; Charge for UA Resulting for Rev
[2021-05-08 21:31] LABS: INR 1.01 (0.8-1.2)
[2021-05-08 21:32] LABS: Partial Thromboplastin Time 23.9 SECONDS (23.9-36.7)
[2021-05-08 21:39] LABS: Bilirubin Urine Neg (Negative); Blood Urine Neg (Negative); Glucose Urine UA 4+ (Normal); Ketones Urine Negative (Negative); Leukocyte Esterase Urine Negative (Negative); Nitrate Urine Negative (Negative); Protein Urine Neg (Negative); Specific Gravity, Urine 1.015 (1.005-1.030); Urine Appearance Clear (CLEAR); Urine Color Yellow (Yellow); Urobilinogen Urine Norm (Negative); pH Urine 5 (5-7)
[2021-05-08 21:39] LABS: HCG, Serum Qual Negative (Negative)
[2021-05-08] MEDS: sodium chloride 0.9% 1,000 ML 999 ML IV (21:40)
[2021-05-08 21:54] VITALS: PULSE 95; RESP 16; O2SAT 99
[2021-05-08 21:59] LABS: ABG PCO2 40.9 mmHg (35-45); ABG PH Result 7.42 (7.35-7.45); Arterial Blood Gas Hematocrit 44.4 % (37-47); Base Excess ABG 1.6 mmol/L (-2.0-2.0); Blood Gas Allen Test Pos; Blood Gas Sample Site Radial, left; Blood Gas Sample Type Arterial; HCO3 ABG 26.3 mmol/L (22-26); Oxygen Device ROOM AIR; PO2 ABG 88.6 mmHg (80.0-100.0)
[2021-05-08 22:03] LABS: Ketone (Acetest) Serum Negative (Negative)
== END 2021-05-08 22:16 | disposition home or self-care (01) ==
PROVIDERS: Emergency Provider Emergency Medicine; PCP Family Medicine Adult Medicine
DX: F17.210 Nicotine dependence, cigarettes, uncomplicated (principal); R10.9 Unspecified abdominal pain; E11.9 Type 2 diabetes mellitus without complications; Z79.84 Long term (current) use of oral hypoglycemic drugs; Z79.891 Long term (current) use of opiate analgesic
CPT/HCPCS: 71045; 74177; 80053; 81003; 82009; 82803; 83605; 83690; 84484; 84703; 85025; 85610; 85730; 93005; 96361; 96374; 96375; 99284; 99291; J2270; J2405; J7030; Q9967

== ENCOUNTER → 2021-06-07 09:08 | Outpatient (BNVA) | payer MEDICAID, SELFPAY | PROVIDERS: PCP Family Medicine Adult Medicine; Referring Provider Family Medicine Adult Medicine; Visit Provider Anesthesiology Pain Medicine | DX: G89.29 Other chronic pain (principal); M47.816 Spondylosis without myelopathy or radiculopathy, lumbar region; M51.16 Intervertebral disc disorders with radiculopathy, lumbar region; M15.9 Polyosteoarthritis, unspecified; E11.65 Type 2 diabetes mellitus with hyperglycemia; Z79.891 Long term (current) use of opiate analgesic; F17.210 Nicotine dependence, cigarettes, uncomplicated | CPT/HCPCS: 99204 ==

== ENCOUNTER → 2021-06-22 11:42 | Day surgery (SDC) | payer MEDICAID, SELFPAY ==
[2021-06-22] VITALS (26 sets, daily range): BP systolic 84–143; BP diastolic 57–99; PULSE 87–100; RESP 18–20; TEMP 36.1; O2SAT 97–99; BMI 23.0
--- NOTE | 2021-06-22 14:07 | PC.NURSE ---
1207-Pt here for therapeutic phlebotomy. Last Hgb 16, Hct 44.8, Ferretin 433, iron 153. Pt has diagnosis of hemachromatosis. Phlebotomy started at 1221 and only 125gm off before it clotted off. IV restarted and draining started again. 200gm off before it clotted off again. IV restarted and draining started again. 200gm off and phlebotomy complete at 1323. BP 114/84 sitting and 84/57 standing. Pt got dizzy and had to sit down. have been continuing to monitor blood pressure until pt becomes stable. 1410-Report given to Beverley to continue care of patient.
[2021-06-22] MEDS: sodium chloride 0.9% 500 ML 999 ML IV (15:02)
--- NOTE | 2021-06-22 15:56 | PC.NURSE ---
My care began with this pt at 1415, Tigist Hernández, RN reported pt's therapeutic phlebotomy ended at 1323, pt's BP soft with orthostatic hypotension and dizziness when standing, has been recording BP q 5 minutes. Pt stated she had not eaten today until Tigist gave her some cookies. Her blood sugar at [address] Morgan's nurse, Guillermina, of pt's status, Guillermina stated Dr. Morgan gave verbal order for 500 cc fluid bolus, which I infused. Pt also drank approximately 500 cc, pt's BP trending upward, pt stated dizziness had subsided prior to departure. Pt stated blood sugar in 400's is not uncommon for her, that she has not been feeling well at home and experiencing dizziness at home as well. Educated pt on appropriate diabetic snacks and encouraged her to keep a daily diary of blood sugar and followup with PCP Dr. Otero as soon as possible regarding blood sugar and dizziness she has been having. Pt voiced understanding.
== END | disposition home or self-care (01) ==
PROVIDERS: PCP Family Medicine Adult Medicine; Visit Provider Internal Medicine
DX: Z14.8 Genetic carrier of other disease (principal); E83.19 Other disorders of iron metabolism
CPT/HCPCS: 99195; J7040

== ENCOUNTER 2021-06-28 10:12 | Outpatient (CLI) | payer MEDICAID, SELFPAY ==
--- NOTE | 2021-06-28 10:30 | XR_ITS ---
WS: [id number] XR lumbar spine f/e only [id number] REASON FOR EXAM: M47.816 - Spondylosis without myelopathy or radiculopathy... FINDINGS: Biconcave compression deformity of L2 unchanged compared to 12/08/2013. Significant osteophytes at L1-L2 and L2-L3 with more moderate osteophytes in the remainder of the lum bar spine. Mild to moderate narrowing of the intervertebral disc spaces at L1-L2 and L5-S1. No signif icant listhesis identified in the neutral position. No significant vertebral body movement on the flexion and extension views. XR/XR lumbar spine f/e only [id number] IMPRESSION: Multilevel degenerative spondylosis.
== END 2021-06-28 10:13 | disposition home or self-care (01) ==
LOC: RAD 10:20
PROVIDERS: PCP Family Medicine Adult Medicine; Visit Provider Anesthesiology Pain Medicine
DX: M47.816 Spondylosis without myelopathy or radiculopathy, lumbar region (principal)
CPT/HCPCS: 72120

== ENCOUNTER 2021-07-07 15:34 | Emergency (ER) | payer MEDICAID, SELFPAY ==
[2021-07-07 16:08] VITALS: BP 140/83; PULSE 107; RESP 16; TEMP 36.9; O2SAT 99; BMI 22.1
[2021-07-07 17:08] VITALS: BP 171/96; PULSE 63; RESP 16; O2SAT 98
--- NOTE | 2021-07-07 17:17 | XRR_ITS ---
PROCEDURE INFORMATION: Exam: XR Right Shoulder Exam date and time: 07/07/2021 5:17 PM Age: 45 years old Clinical indication: Right; Patient HX: Fell on ice 5 years ago; Pain on RT shoulder up to neck TECHNIQUE: Imaging protocol: XR Right shoulder. Views: 2 or more views. COMPARISON: CR XR chest 1V portable [id number] 05/08/2021 8:41 PM FINDINGS: Bones/joints: Normal. Soft tissues: Normal. XR/XR shoulder RT min 2V* [id number] IMPRESSION: No acute findings.
--- NOTE | 2021-07-07 17:18 | ED_ITS ---
HPI - General Adult General: Chief complaint: General Medical Stated complaint: Right Shoulder injury, tingling, numbness w/ pain Time Seen by Provider: 07/07/21 17:17 History of Present Illness: 45-year-old female comes in today with complaints of right side shoulder pain. Patient reports that she does have chronic pain in her shoulder and is awaiting referral to a mirror painter. Patient for the last 2 days has had worse shoulder pain and has not been able to rest at night. Patient has not been able to have refills on her tramadol for her pain. Patient appears well. Patient appears in moderate pain. Review of Systems Musc: Reports: joint pain (Right shoulder pain) [facility] ED PFS: Medical History (Updated 07/07/21 @ 17:51 by NORRIS Perez) Anxiety and depression Chronic hip pain Chronic low back pain with left-sided sciatica Chronic nausea Diabetes type 2, uncontrolled Diabetic neuropathy Dyslipidemia Elevated transaminase level GERD (gastroesophageal reflux disease) Hepatitis C 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, s/p treatment with interferon in ~ 1999 by Eddie History of MRSA infection diabetic wounds History of rheumatoid arthritis Hypothyroidism Marijuana use Nicotine dependence, cigarettes, uncomplicated JOSE (obstructive sleep apnea) per sleep study 2010, CPAP of 13 recommended at that time, no longer with machine Osteoarthritis involving multiple joints on both sides of body PTSD (post-traumatic stress disorder) Right flank pain, chronic Supraventricular tachycardia (~04/2020) identified during ED visit 04/2020, treated with 6mg adenosine with conversion to sinus Surgical History History of hysterectomy (~2011) also Kimberly urethral plication History of incision and drainage (~2013) right upper extremity and R lower extremity History of tubal ligation History of umbilical hernia repair (~2011) Family History Father Diabetes Mother Diabetes Grandfather Pacemaker Denies family history of Stroke Social History Smoking and tobacco status: current every day smoker cigarettes Packs smoked per day: 0.5 Second hand smoke exposure: Yes Alcohol intake: never Marital status: Life Partner Number of children: 2 Number of grandchildren: 0 Current occupational status: unemployed Physical Exam Const: COMMON NORMALS: alert Neck/C-Spine: COMMON NORMALS: full ROM CERVICAL SPINE: Yes Paracervical muscle tenderness Resp: COMMON NORMALS: normal respiratory effort and clear to auscultation bilaterally AUSCULTATION: clear to auscultation bilaterally Cardio: COMMON NORMALS: regular rate and regular rhythm RATE: regular rate RHYTHM: regular rhythm Back/Pelvis: COMMON NORMALS: thoracic and lumbar spine normal to inspection Extremity: COMMON NORMALS: normal to inspection RIGHT UPPER EXTREMITY: Yes shoulder joint (No palpable tenderness, decreased abduction with pain) Right shoulder: Yes Right shoulder joint inspection exam, Yes palpation, Yes Right shoulder joint ROM exam and Yes Right shoulder joint neurovascular exam Neuro: SENSORIUM/ORIENTATION: Yes alert Course Vital Signs: Vital signs: Vital Signs Temperature 98.5 F 07/07/21 16:08 Pulse Rate 63 07/07/21 17:08 Respiratory Rate 16 07/07/21 17:08 Blood Pressure 171/96 07/07/21 17:08 Pulse Oximetry 98 07/07/21 17:08 MDM - General Adult Medical Decision Making 45-year-old female comes in today with complaints of right shoulder pain. On exam patient appears well. Patient appears in moderate pain. Distal pulses and sensation to the hand on the right side of normal. Patient does have some decreased abduction due to pain. Differential diagnosis includes chronic pain syndrome, peripheral neuropathy, malingering. X-ray of the shoulder was unremarkable. No acute injury was noted. Believe this is a exacerbation of chronic condition. Patient was given a dose of morphine for control of her pain in the ER. Patient was instructed that the ER is unable to refill chronic pain medications and she would need to follow-up with primary care. I did give patient 6 tablets of tramadol to bridge for follow-up appointment. Discharge Plan Discharge Patient Disposition: Home Clinical Impression: Right shoulder pain Condition: Stable Prescriptions: New tramadol 100 mg tablet 100 mg PO BID Qty: 6 0RF No Action atenolol 25 mg tablet 25 mg PO QAM Qty: 30 5RF Rx Instructions: 340 B medication buspirone 10 mg tablet 10 mg PO TID Qty: 90 5RF Rx Instructions: 340 B medication celecoxib 200 mg capsule 200 mg PO BID PRN (Reason: chronic pain) Qty: 60 1RF Hold Instructions: Resume on 05/17/21. Rx Instructions: 340 B medication gabapentin 300 mg capsule 900 mg PO TID 30 Days Qty: 270 1RF Rx Instructions: Take 3 caps in a.m. and p.m. and 2 caps at noon (900-600-900 mg) 340 B meds glipizide 10 mg tablet extended release 24hr 10 mg PO BID Qty: 60 5RF Rx Instructions: 340 B medication levothyroxine 50 mcg tablet 50 mcg PO QAM Qty: 30 5RF Rx Instructions: 340 B medication omeprazole 20 mg capsule,delayed release(DR/EC) 20 mg PO DAILY PRN (Reason: Heartburn & nausea) Qty: 30 5RF Rx Instructions: 340 B medication quetiapine 50 mg tablet 100 mg PO .qhs PRN (Reason: for sleep) Qty: 60 1RF Rx Instructions: 340 B medication trazodone 100 mg tablet 100 mg PO .hs 30 Days Qty: 30 5RF Rx Instructions: 340 B medication metformin 500 mg tablet 1,000 mg PO BID 30 Days Qty: 120 5RF Rx Instructions: 340 B medication mupirocin 2 % ointment 1 applic topical BID 14 Days Qty: 22 0RF ondansetron HCl 4 mg tablet 4 mg PO Q8H PRN (Reason: nausea and vomiting) Qty: 30 1RF mirtazapine 15 mg tablet 15 mg PO .qhs Qty: 30 1RF Victoza 3-Navneet 0.6 mg/0.1 mL (18 mg/3 mL) pen injector 1.8 mg SUBCUT DAILY Qty: 9 5RF (DME) Accu-Chek Guide test strips Strip See Rx Instructions .Route Qty: 100 2RF Rx Instructions: As directed, check blood sugar, once daily (DME) blood-glucose meter Misc See Rx Instructions .Route Qty: 1 0RF Rx Instructions: As directed, test blood sugar, 1 time daily (DME) lancets [BD Ultra Fine Lancets] 33 gauge misc See Rx Instructions .Route Qty: 100 0RF Rx Instructions: As directed, test blood sugar, once, daily. tramadol 100 mg tablet 100 mg PO BID Qty: 60 0RF Rx Instructions: Refill next on or after 07/06/2021 340 B medication amitriptyline PO BEDTIME 0RF acetaminophen [Tylenol Ex Str Rapid Release] 500 mg Tablet 1,000 - 2,000 mg PO Q4H PRN (Reason: Pain) 0RF Discharge Orders: Discharge ED (Routine); Ordered 07/07/21 Ordered By: Polo Jennings Referrals: Israel Otero MD [Primary Care Provider] - Discharge Diet: Usual diet Discharge Activity: Increase activity as tolerated Patient Instructions: Musculoskeletal Pain (ED), Opioid Safety Activity Restrictions/Additional Instructions: Activity as tolerated. Drink plenty of water with medication. Use acetaminophen, Tylenol, with your prescription meds to help control your pain. Use the tramadol sparingly for severe pain. The ER cannot refill chronic pain medications. Follow-up with primary care for further instruction. Return to the ER for new concerns. Coding Level of Care Code ED Tool Planer Set Up Operator for Chg Fwd History Problem Focused Exam Problem Focused Medical Decision Making Low Complexity Time Spent (min) 20
[2021-07-07 18:03] VITALS: RESP 16
[2021-07-07] MEDS: morphine 4 mg/mL SDV 1 mL IM (18:03)
== END 2021-07-07 18:09 | disposition home or self-care (01) ==
PROVIDERS: Emergency Provider Nurse Practitioner Family; PCP Family Medicine Adult Medicine
DX: M25.511 Pain in right shoulder (principal); Z79.84 Long term (current) use of oral hypoglycemic drugs; E11.40 Type 2 diabetes mellitus with diabetic neuropathy, unspecified; E78.5 Hyperlipidemia, unspecified; Z86.19 Personal history of other infectious and parasitic diseases; F17.210 Nicotine dependence, cigarettes, uncomplicated
CPT/HCPCS: 73030; 96372; 99283; J2270

== ENCOUNTER 2021-07-10 10:56 | Emergency (ER) | payer MEDICAID, SELFPAY ==
[2021-07-10 11:18] VITALS: BP 152/97; PULSE 116; RESP 20; TEMP 36.7; O2SAT 99; BMI 23.0
--- NOTE | 2021-07-10 11:46 | W.ED.GENADLT ---
HPI - General Adult General: Chief complaint: Urogenital-Female Stated complaint: right flank and abd pain Time Seen by Provider: 07/10/21 11:27 Source: patient Mode of arrival: ambulatory Limitations: no limitations History of Present Illness: Patient is a 45-year-old female presents to ED today with a complaint of right flank pain. Patient tells me she has had pain in this area over the past 3 years. She states pain is constant. According to patient she has had multiple work-ups regarding her discomfort and nobody ever seems to be able to find a cause. She states she has an appointment with pain management next month. Looking at previous documentation patient has been seen several times here as well as through her PCP for various pain syndromes. She has had multiple abdominal CT scans over the past 4 months. She saw pain management last month for some complaints of lower back pains. She was seen in our ED 3 days ago and states she had ran out of her tramadol and was given a prescription for 6 tablets. Associated symptoms: Reports nausea; Deny chest pain, dyspnea, headache(s), malaise, rash or vomiting Review of Systems Const: Denies: fever(s), chills, body aches, fatigue or malaise Card: Denies: chest pain Resp: Denies: dyspnea GI: Reports: nausea; Denies: abdominal pain, vomiting or diarrhea : Reports: flank pain; Denies: difficulty voiding, dysuria, urinary frequency or urinary urgency Musc: Reports: back pain (chronic) Skin/Breast: Denies: rash Neuro: Denies: headache(s), numbness in extremities, weakness in extremities or sensory changes [facility] ED PFSH: Medical History Anxiety and depression Chronic hip pain Chronic low back pain with left-sided sciatica Chronic nausea Diabetes type 2, uncontrolled Diabetic neuropathy Dyslipidemia Elevated transaminase level GERD (gastroesophageal reflux disease) Hepatitis C 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, s/p treatment with interferon in ~ 1999 by Eddie History of MRSA infection diabetic wounds History of rheumatoid arthritis Hypothyroidism Marijuana use Nicotine dependence, cigarettes, uncomplicated JOSE (obstructive sleep apnea) per sleep study 2010, CPAP of 13 recommended at that time, no longer with machine Osteoarthritis involving multiple joints on both sides of body PTSD (post-traumatic stress disorder) Right flank pain, chronic Supraventricular tachycardia (~04/2020) identified during ED visit 04/2020, treated with 6mg adenosine with conversion to sinus Surgical History History of hysterectomy (~2011) also Kimberly urethral plication History of incision and drainage (~2013) right upper extremity and R lower extremity History of tubal ligation History of umbilical hernia repair (~2011) Family History Father Diabetes Mother Diabetes Grandfather Pacemaker Denies family history of Stroke Social History Smoking and tobacco status: current every day smoker cigarettes Packs smoked per day: 0.5 Second hand smoke exposure: Yes Alcohol intake: never Marital status: Life Partner Number of children: 2 Number of grandchildren: 0 Current occupational status: unemployed Physical Exam Const: COMMON NORMALS: no acute distress, patient oriented x3, no limitations and alert GENERAL APPEARANCE: cooperative and appears older than stated age ORIENTATION/CONSCIOUSNESS: Yes awake, Yes oriented to person, Yes oriented to place and Yes oriented to time HENMT: COMMON NORMALS: normocephalic and atraumatic HEAD & SCALP: normocephalic and atraumatic Chest: COMMONS NORMALS: normal inspection of the chest OTHER: reports tenderness throughout R lower chest-states this is her chronic pain Resp: COMMON NORMALS: normal respiratory effort and clear to auscultation bilaterally AUSCULTATION: clear to auscultation bilaterally Cardio: COMMON NORMALS: regular rate and regular rhythm RATE: regular rate RHYTHM: regular rhythm GI: COMMON NORMALS: Normal to inspection, nondistended, normoactive bowel sounds present, Soft to palpation, No hepatosplenomegaly present and no masses INSPECTION: Yes normal to inspection PALPATION: Yes Soft to palpation, Yes Tenderness to palpation present (GI) (throughout R CVA and R upper abdomen-states this is chronic) and Yes No hepatosplenomegaly present : BLADDER/KIDNEY EXAM: Yes CVA tenderness on the right Back/Pelvis: GENERAL BACK: Yes CVA tenderness Extremity: COMMON NORMALS: normal to inspection GENERAL: Yes normal exam except as noted Neuro: KELLEN COMA SCALE: document GCS findings Frederick coma scale eye opening: Spontaneous Kellen coma scale verbal response: Orientated Kellen coma scale motor response: Obey commands Frederick coma scale total score: 15 COMMON NORMALS: patient oriented x3, moves all extremities, no focal motor deficits and no sensory deficits noted SENSORIUM/ORIENTATION: Yes alert, Yes oriented to person, Yes oriented to place and Yes oriented to time Skin: COMMON NORMALS: no rashes or lesions noted GENERAL SKIN EXAM: no rashes or lesions noted Course Vital Signs: Vital signs: Vital Signs Temperature 98.1 F 07/10/21 11:18 Pulse Rate 111 H 07/10/21 12:04 Respiratory Rate 16 07/10/21 12:04 Blood Pressure 155/110 07/10/21 12:04 Pulse Oximetry 100 07/10/21 12:04 MDM - General Adult Medical Decision Making Patient is a 45-year-old female here for complaints of chronic right-sided back and flank pains. Patient states pains have been present over the past 3 years. She has no new complaints today and states her pain is identical to her chronic pain. Patient has been taking Tramadol prescribed from her PCP Dr. Otero. After review of pharmacy records with the manager clinical pharmacy, [facility], it looks like patient filled a prescription for Tramadol 120 tablets on 06/21. She reportedly and admittedly ran out of this medication early because she was taking more than prescribed. She apparently was written a new prescription by Dr. Otero for 60 tablets but states pharmacy will not fill/Medicaid will not approve because she isn't due to fill prescription yet. She was here in our ED 3 days ago and got a prescription for Tramadol 6 tablets that again pharmacy will not fill. She states she was given the option to pay robert but she declined. Patient is requesting Hydrocodone from me today stating that the pharmacy would fill this. I told her this is absolutely not appropriate from the emergency department especially since we are dealing with pain that has been present for years. This is a decision that needs to be managed by her PCP and custom motorcycle painter. She states she does have an appointment with Dr. Be ([place] pain specialist) at the end of July. Lab Data : 07/10/21 11:50 07/10/21 11:50 Laboratory Results WBC 6.9 10^3/uL (4.0-10.0) 07/10/21 11:50 RBC 4.83 10^6/uL (4.1-5.3) 07/10/21 11:50 Hgb 14.7 g/dL (11.5-15.3) 07/10/21 11:50 Hct 43.1 % (37.0-47.0) 07/10/21 11:50 MCV 89.2 fl (81-99) 07/10/21 11:50 MCH 30.4 pg (28.0-34.0) 07/10/21 11:50 MCHC 34.1 g/dL (30.0-36.0) 07/10/21 11:50 RDW 12.9 % (12.1-15.1) 07/10/21 11:50 Plt Count 376 10^3/cmm (130-400) 07/10/21 11:50 MPV 8.4 fL (7.4-10.4) 07/10/21 11:50 Neut % (Auto) 57.7 % 07/10/21 11:50 Lymph % (Auto) 31.8 % 07/10/21 11:50 Glascock % (Auto) 7.0 % 07/10/21 11:50 Eos % (Auto) 1.9 % 07/10/21 11:50 Baso % (Auto) 1.3 % 07/10/21 11:50 Neut # (Auto) 3.98 10^3/uL (1.8-7.7) 07/10/21 11:50 Lymph # (Auto) 2.2 10^3/uL (0.8-4.8) 07/10/21 11:50 Glascock # (Auto) 0.5 10^3/uL (0.2-0.9) 07/10/21 11:50 Eos # (Auto) 0.1 10^3/uL (0.0-0.8) 07/10/21 11:50 Baso # (Auto) 0.1 10^3/uL (0.0-0.1) 07/10/21 11:50 Nucleated RBC % (auto) 0 % 07/10/21 11:50 Nucleated RBCs # 0.0 /100WBC 07/10/21 11:50 Sodium 136 mmol/L (136-145) 07/10/21 11:50 Potassium 4.3 mmol/L (3.5-5.1) 07/10/21 11:50 Chloride 98 mmol/L (98-107) 07/10/21 11:50 Carbon Dioxide 26 mmol/L (22-29) 07/10/21 11:50 Anion Gap 16.3 (5-19) 07/10/21 11:50 BUN 13 mg/dL (6-20) 07/10/21 11:50 Creatinine 0.4 mg/dL (0.5-0.9) L 07/10/21 11:50 GFR Calculation 171.1 mL/min (90-130) H 07/10/21 11:50 Glucose 95 mg/dL (65-115) 07/10/21 11:50 Calculated Osmolality 282 mOsm/kg (285-295) L 07/10/21 11:50 Calcium 10.5 mg/dL (8.5-10.5) 07/10/21 11:50 Total Bilirubin 0.5 mg/dL (0.15-1.2) 07/10/21 11:50 AST 42 U/L (0-32) H 07/10/21 11:50 ALT 95 U/L (0-33) H 07/10/21 11:50 Alkaline Phosphatase 98 IU/L (35-105) 07/10/21 11:50 Total Protein 8.1 g/dL (6.6-8.7) 07/10/21 11:50 Albumin 5.0 g/dL (3.5-5.2) 07/10/21 11:50 Globulin 3.1 g/dL (1.3-4.6) 07/10/21 11:50 Lipase 23 U/L (13-60) 07/10/21 11:50 HCG, Qual Negative (Negative) 07/10/21 11:50 Urine Color Yellow (Yellow) 07/10/21 11:50 Urine Appearance Sl hazy (CLEAR) 07/10/21 11:50 Urine pH 5 (5-7) 07/10/21 11:50 Ur Specific [place] 1.010 (1.005-1.030) 07/10/21 11:50 Urine Protein Neg (Negative) 07/10/21 11:50 Urine Glucose (UA) Norm (Normal) 07/10/21 11:50 Urine Ketones Negative (Negative) 07/10/21 11:50 Urine Blood Neg (Negative) 07/10/21 11:50 Urine Nitrate Negative (Negative) 07/10/21 11:50 Urine Bilirubin Neg (Negative) 07/10/21 11:50 Urine Urobilinogen Norm mg/dL (Negative) 07/10/21 11:50 Ur Leukocyte Esterase Negative (Negative) 07/10/21 11:50 Urine RBC None /hpf (0-2) 07/10/21 11:50 Urine WBC 0-4 /hpf (0-5) H 07/10/21 11:50 Ur Squamous Epith Cells 5-10 /hpf (0-5) H 07/10/21 11:50 Amorphous Sediment Not Reportable 07/10/21 11:50 Urine Bacteria Trace /hpf (NONE) 07/10/21 11:50 Urine Mucus Trace /hpf 07/10/21 11:50 Discharge Plan Discharge Patient Disposition: Home Clinical Impression: Chronic pain Condition: Stable Prescriptions: No Action atenolol 25 mg tablet 25 mg PO QAM Qty: 30 5RF Rx Instructions: 340 B medication buspirone 10 mg tablet 10 mg PO TID Qty: 90 5RF Rx Instructions: 340 B medication celecoxib 200 mg capsule 200 mg PO BID PRN (Reason: chronic pain) Qty: 60 1RF Hold Instructions: Resume on 05/17/21. Rx Instructions: 340 B medication glipizide 10 mg tablet extended release 24hr 10 mg PO BID Qty: 60 5RF Rx Instructions: 340 B medication levothyroxine 50 mcg tablet 50 mcg PO QAM Qty: 30 5RF Rx Instructions: 340 B medication omeprazole 20 mg capsule,delayed release(DR/EC) 20 mg PO DAILY PRN (Reason: Heartburn & nausea) Qty: 30 5RF Rx Instructions: 340 B medication metformin 500 mg tablet 1,000 mg PO BID 30 Days Qty: 120 5RF Rx Instructions: 340 B medication mupirocin 2 % ointment 1 applic topical BID 14 Days Qty: 22 0RF ondansetron HCl 4 mg tablet 4 mg PO Q8H PRN (Reason: nausea and vomiting) Qty: 30 1RF Victoza 3-Navneet 0.6 mg/0.1 mL (18 mg/3 mL) pen injector 1.8 mg SUBCUT DAILY Qty: 9 5RF (DME) Accu-Chek Guide test strips Strip See Rx Instructions .Route Qty: 100 2RF Rx Instructions: As directed, check blood sugar, once daily (DME) blood-glucose meter Misc See Rx Instructions .Route Qty: 1 0RF Rx Instructions: As directed, test blood sugar, 1 time daily (DME) lancets [BD Ultra Fine Lancets] 33 gauge misc See Rx Instructions .Route Qty: 100 0RF Rx Instructions: As directed, test blood sugar, once, daily. tramadol 100 mg tablet 100 mg PO BID Qty: 60 0RF Rx Instructions: Refill next on or after 07/06/2021 340 B medication amitriptyline 10 mg Tablet 10 mg PO DAILY 0RF tramadol 100 mg tablet 100 mg PO BID Qty: 6 0RF diclofenac sodium 75 mg tablet,delayed release (DR/EC) 75 mg PO Q12H PRN (Reason: Pain) 0RF trazodone 100 mg tablet 100 mg PO BEDTIME 0RF Rx Instructions: 340 B medication gabapentin 300 mg capsule See Rx Instructions .ROUTE .COMPLEX 0RF Rx Instructions: Take 3 caps in a.m. 2 caps at noon and 3 caps at noon (900-600-900 mg)340 B meds mirtazapine 15 mg tablet 15 mg PO BEDTIME 0RF quetiapine 50 mg tablet 100 mg PO BEDTIME PRN (Reason: for sleep) 0RF Rx Instructions: 340 B medication acetaminophen [Tylenol Ex Str Rapid Release] 500 mg Tablet 1,000 - 2,000 mg PO Q4H PRN (Reason: Pain) 0RF Discharge Orders: Discharge ED (Routine); Ordered 07/10/21 Ordered By: Edilma Corona Referrals: Israel Otero MD [Primary Care Provider] - Coding Level of Care Code ED African Studies Professor for Chg Fwd Exam Comprehensive
[2021-07-10 11:52] VITALS: BP 155/110; PULSE 110; RESP 16; O2SAT 98
[2021-07-10 12:02] LABS: Basophils # 0.1 10^3/uL (0.0-0.1); Basophils % 1.3 %; Eosinophils # 0.1 10^3/uL (0.0-0.8); Eosinophils % 1.9 %; Hematocrit 43.1 % (37.0-47.0); Hemoglobin 14.7 g/dL (11.5-15.3); Lymphocytes # 2.2 10^3/uL (0.8-4.8); Lymphocytes % 31.8 %; Mean Corpuscular HGB Conc 34.1 g/dL (30.0-36.0); Mean Corpuscular Hemoglobin 30.4 pg (28.0-34.0); Mean Corpuscular Volume 89.2 fl (81-99); Mean Platelet Volume 8.4 fL (7.4-10.4); Monocytes # 0.5 10^3/uL (0.2-0.9); Neutrophils # 3.98 10^3/uL (1.8-7.7); Neutrophils % 57.7 %; Nucleated Red Blood Cells % 0 %; Platelet Count 376 10^3/cmm (130-400); Red Blood Count 4.83 10^6/uL (4.1-5.3); Red Cell Distribution Width 12.9 % (12.1-15.1); White Blood Count 6.9 10^3/uL (4.0-10.0)
[2021-07-10 12:04] VITALS: BP 155/110; PULSE 111; RESP 16; O2SAT 100
[2021-07-10 12:13] LABS: HCG, Serum Qual Negative (Negative)
[2021-07-10 12:23] LABS: Alanine Aminotransferase 95 U/L (0-33); Alkaline Phosphatase 98 IU/L (35-105); Anion Gap 16.3 (5-19); Aspartate Amino Transferase 42 U/L (0-32); Blood Urea Nitrogen 13 mg/dL (6-20); Calcium 10.5 mg/dL (8.5-10.5); Carbon Dioxide 26 mmol/L (22-29); Chloride 98 mmol/L (98-107); Creatinine Clr Calc Pharmacy 151.0371; Globulin 3.1 g/dL (1.3-4.6); Glomerular Filtration Rate 171.1 mL/min (90-130); Glucose 95 mg/dL (65-115); Lipase 23 U/L (13-60); Osmolality Calculated 282 mOsm/kg (285-295); Potassium 4.3 mmol/L (3.5-5.1); Sodium 136 mmol/L (136-145); Total Bilirubin 0.5 mg/dL (0.15-1.2); Total Protein 8.1 g/dL (6.6-8.7)
[2021-07-10 12:39] LABS: Add Urine Microscopic? YES; Bacteria Urine TRACE /hpf; Bilirubin Urine Neg (Negative); Blood Urine Neg (Negative); Glucose Urine UA Norm (Normal); Ketones Urine Negative (Negative); Leukocyte Esterase Urine Negative (Negative); Mucus Urine TRACE /hpf; Nitrate Urine Negative (Negative); Protein Urine Neg (Negative); Urine Appearance SL Hazy (CLEAR); Urine Color Yellow (Yellow); Urobilinogen Urine Norm (Negative); WBC Urine 0-4 /hpf (0-5); pH Urine 5 (5-7)
[2021-07-10 12:40] LABS: Add Urine Culture? No
[2021-07-10] MEDS: ondansetron 2 mg/ML SDV 2 mL 4 MG IVP (12:40)
[2021-07-10] MEDS: ketorolac 60 mg/2 mL INJ 30 MG IVP (12:40)
[2021-07-10 13:40] VITALS: BP 145/100; PULSE 105; RESP 18; TEMP 36.9; O2SAT 100
[2021-07-10 14:47] LABS: Amphetamines Screen Urine Negative (Negative); Barbiturates Screen Urine Negative (Negative); Benzodiazepines Screen Urine Negative (Negative); Cocaine Screen Urine Negative (Negative); Opiate Screen Urine Negative (Negative); PCP Screen Urine Negative (Negative); THC Screen Urine Positive (Negative)
== END 2021-07-10 13:42 | disposition home or self-care (01) ==
PROVIDERS: Emergency Provider Physician Assistant; PCP Family Medicine Adult Medicine
DX: G89.29 Other chronic pain (principal); R10.31 Right lower quadrant pain; M54.9 Dorsalgia, unspecified; E11.40 Type 2 diabetes mellitus with diabetic neuropathy, unspecified; E03.9 Hypothyroidism, unspecified; E78.5 Hyperlipidemia, unspecified; F17.210 Nicotine dependence, cigarettes, uncomplicated; Z86.19 Personal history of other infectious and parasitic diseases; Z90.710 Acquired absence of both cervix and uterus; Z79.891 Long term (current) use of opiate analgesic; Z79.84 Long term (current) use of oral hypoglycemic drugs
CPT/HCPCS: 80053; 80306; 81001; 83690; 84703; 85025; 96374; 96375; 99283; J1885; J2405

== ENCOUNTER 2021-07-11 12:10 | Observation (INO) | payer MEDICAID, SELFPAY ==
[2021-07-11] VITALS (12 sets, daily range): BP systolic 113–159; BP diastolic 77–104; PULSE 103–205; RESP 16–24; TEMP 36.3–37; O2SAT 96–100; BMI 23.0; BMI 23.1
--- NOTE | 2021-07-11 12:12 | PC.NURSE ---
DR. GALLEGOS ATTEMPTING VAGAL MANEUVERS AT BEDSIDE WITH PT.
--- NOTE | 2021-07-11 12:16 | PC.NURSE ---
RT NOTIFIED OF NEED OF ABG PER DR. GALLEGOS VO.
[2021-07-11] MEDS: sodium chloride 0.9% 1,000 ML 999 ML IV ×2 (12:21→13:21)
[2021-07-11] MEDS: adenosine 3 mg/mL SDV 2mL 6 MG IVP (12:21)
--- NOTE | 2021-07-11 12:25 | XRR_ITS ---
PROCEDURE INFORMATION: Exam: XR Chest Exam date and time: 07/11/2021 12:25 PM Age: 45 years old Clinical indication: Pain; Other: Svt; Additional info: Chest pain; H/o hyst TECHNIQUE: Imaging protocol: XR of the chest. Views: 1 view. COMPARISON: CR XR chest 1V portable [id number] 05/08/2021 8:41 PM FINDINGS: Lungs: Unremarkable. No consolidation. Pleural spaces: Unremarkable. No pleural effusion. No pneumothorax. Heart/Mediastinum: Unremarkable. No cardiomegaly. Bones/joints: Unremarkable. XR/XR chest 1V portable [id number] IMPRESSION: No acute findings.
--- NOTE | 2021-07-11 12:25 | ECG_ITS ---
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 Measurements Intervals [place] Rate: 125 P: 77 MA: 157 QRS: 52 QRSD: 71 T: 67 QT: 289 QTc: 418 Interpretive Statements SINUS TACHYCARDIA Compared to ECG 05/08/2021 20:46:34 No significant changes Electronically Signed On 07-12-2021 12:13:51 MANAGER GARAGE by Carlo Gutierrez M.D. [id number] [email or web address]
--- NOTE | 2021-07-11 12:29 | ED_ITS ---
HPI - Chest Pain General: Chief Complaint: Chest Pain Stated Complaint: SVT Time Seen by Provider: 07/11/21 12:25 Source: patient and EMS Mode of arrival: EMS Limitations: no limitations History of Present Illness: Patient with onset of palpitations and tachycardia approximately 1 hour prior to arrival. Patient states that she was seen last night in the emergency room for right flank and right lower quadrant abdominal pain. She states work-up was negative that time. She has had some nausea since yesterday but denies any vomiting or diarrhea. She states she has loose stools but no blood in her stool or constipation. She denies any fever. She denies any shortness of breath. She states that she has been out of all her medications for approximately 2 days. She states she has not had any insulin. She has not taken her atenolol in a couple days. She did have caffeine this morning. She denies any drug use or stimulant use. She does smoke. Past surgical history includes hysterectomy and tubal ligation. Blood sugar upon arrival was 300. She states she is allergic to penicillin. She denies any dysuria or hematuria. She denies previous history of kidney stones. She states she does have possible history of SVT insulin-dependent diabetes mellitus hemochromatosis MD complaint: chest pain and other (Palpitations and tachycardia.) Onset (ago): hour(s) (1) Timing of current episode: constant Prior episodes: Yes Onset: during rest Pain location: substernal Pain radiation: none Severity: moderate Exacerbating factors: nothing Context: non compliance with medication Associated symptoms: Reports nausea and palpitations; Deny abdominal pain, diaphoresis, dyspnea, fever(s), leg edema, syncope or vomiting Treatment prior to arrival: other (Valsalva maneuvers) Risk Factors: Coronary artery disease risk factors: diabetes and smoking history Review of Systems Const: Reports: change in appetite and malaise; Denies: fever(s), body aches or diaphoresis Eyes: Denies: change in vision or blurry vision ENMT: Denies: throat pain or odynophagia Card: Reports: chest pain, palpitations and other (Tachycardia); Denies: syncope or dyspnea on exertion Resp: Denies: dyspnea, productive cough or non-productive cough GI: Reports: nausea; Denies: abdominal pain, vomiting, diarrhea, hematochezia or melena : Reports: flank pain; Denies: difficulty voiding or dysuria Musc: Denies: neck pain, back pain, extremity pain, extremity swelling, joint pain or joint swelling Skin/Breast: Denies: rash, pruritus or skin pain Neuro: Denies: headache(s), numbness in extremities or weakness in extremities Psych: Reports: anxiety Endo: Reports: other (Hyperglycemia) Valentino/Lymph: Denies: enlarged lymph nodes [facility] ED PFSH: Medical History Anxiety and depression Chronic hip pain Chronic low back pain with left-sided sciatica Chronic nausea Diabetes type 2, uncontrolled Diabetic neuropathy Dyslipidemia Elevated transaminase level GERD (gastroesophageal reflux disease) Hepatitis C 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, s/p treatment with interferon in ~ 1999 by Eddie History of MRSA infection diabetic wounds History of rheumatoid arthritis Hypothyroidism Marijuana use Nicotine dependence, cigarettes, uncomplicated JOSE (obstructive sleep apnea) per sleep study 2010, CPAP of 13 recommended at that time, no longer with machine Osteoarthritis involving multiple joints on both sides of body PTSD (post-traumatic stress disorder) Right flank pain, chronic Supraventricular tachycardia (~04/2020) identified during ED visit 04/2020, treated with 6mg adenosine with conversion to sinus Surgical History History of hysterectomy (~2011) also Kimberly urethral plication History of incision and drainage (~2013) right upper extremity and R lower extremity History of tubal ligation History of umbilical hernia repair (~2011) Family History Father Diabetes Mother Diabetes Grandfather Pacemaker Denies family history of Stroke Social History Smoking and tobacco status: current every day smoker cigarettes Packs smoked per day: 0.5 Second hand smoke exposure: Yes Alcohol intake: never Marital status: Life Partner Number of children: 2 Number of grandchildren: 0 Current occupational status: unemployed Supplemental PFS Information: Patient did have caffeine this morning. Physical Exam Const: COMMON NORMALS: no acute distress, patient oriented x3, no limitations and well nourished GENERAL APPEARANCE: cooperative HENMT: COMMON NORMALS: normocephalic and atraumatic HEAD & SCALP: normocephalic and atraumatic FACE & SINUS: normal facial exam Eye: COMMON NORMALS: EOMs intact bilaterally Neck/C-Spine: COMMON NORMALS: full ROM, no lymphadenopathy, supple and no meningeal signs GENERAL: Yes normal visual inspection Lymph: LYMPHATIC: no lymphadenopathy noted Chest: COMMONS NORMALS: normal inspection of the chest and normal palpation of entire chest wall CHEST: No Ecchymosis present and No rash Resp: COMMON NORMALS: normal respiratory effort, No retractions and clear to auscultation bilaterally EFFORT & INSPECTION: No respiratory distress AUSCULTATION: clear to auscultation bilaterally Cardio: COMMON NORMALS: regular rate, regular rhythm and Peripheral pulses 2+ throughout JUGULAR VENOUS DISTENTION: no JVD RATE: regular rate, tac hycardic and Other (Heart rate around 200 bpm) RHYTHM: regular rhythm PERIPHERAL PULSES: Peripheral pulses 2+ throughout GI: COMMON NORMALS: Normal to inspection, nondistended, normoactive bowel sounds present and non-tender : COMMON NORMALS: Yes no CVA tenderness BLADDER/KIDNEY EXAM: Yes no CVA tenderness Back/Pelvis: COMMON NORMALS: no CVA tenderness Extremity: COMMON NORMALS: normal to inspection, full ROM and capillary refill normal Neuro: COMMON NORMALS: patient oriented x3, CN's II-XII intact bilaterally, no focal motor deficits and no sensory deficits noted MENINGEAL SIGNS: Yes no meningeal signs Psych: COMMON NORMALS: mental status grossly normal (Mild anxiety due to elevated heart rate.), Normal thought process present and cooperative THOUGHT PROCESS: Normal thought process present Skin: COMMON NORMALS: no rashes or lesions noted and no wounds GENERAL SKIN EXAM: no rashes or lesions noted Course Vital Signs: Vital signs: Vital Signs Pulse Rate 106 H 07/11/21 14:26 Respiratory Rate 18 07/11/21 14:26 Blood Pressure 146/99 07/11/21 14:26 Pulse Oximetry 99 07/11/21 14:26 MDM - Chest Pain Medical Decision Making SVT Lab Data I reviewed the patient's lab results. ABG shows hyperventilation. No evidence of DKA. : 07/11/21 12:20 07/11/21 12:20 Radiology Impressions Chest X-Ray 07/11/21 12:25 IMPRESSION: No acute findings. Laboratory Results WBC 9.6 10^3/uL (4.0-10.0) 07/11/21 12:20 RBC 5.70 10^6/uL (4.1-5.3) H 07/11/21 12:20 Hgb 17.6 g/dL (11.5-15.3) H 07/11/21 12:20 Hct 50.7 % (37.0-47.0) H 07/11/21 12:20 MCV 88.9 fl (81-99) 07/11/21 12:20 MCH 30.9 pg (28.0-34.0) 07/11/21 12:20 MCHC 34.7 g/dL (30.0-36.0) 07/11/21 12:20 RDW 12.7 % (12.1-15.1) 07/11/21 12:20 Plt Count 348 10^3/cmm (130-400) 07/11/21 12:20 MPV 10.0 fL (7.4-10.4) 07/11/21 12:20 Neut % (Auto) 48.5 % 07/11/21 12:20 Lymph % (Auto) 38.3 % 07/11/21 12:20 [place] % (Auto) 10.2 % 07/11/21 12:20 Eos % (Auto) 2.0 % 07/11/21 12:20 Baso % (Auto) 0.8 % 07/11/21 12:20 Neut # (Auto) 4.63 10^3/uL (1.8-7.7) 07/11/21 12:20 Lymph # (Auto) 3.7 10^3/uL (0.8-4.8) 07/11/21 12:20 [place] # (Auto) 1.0 10^3/uL (0.2-0.9) H 07/11/21 12:20 Eos # (Auto) 0.2 10^3/uL (0.0-0.8) 07/11/21 12:20 Baso # (Auto) 0.1 10^3/uL (0.0-0.1) 07/11/21 12:20 Nucleated RBC % (auto) 0 % 07/11/21 12:20 Nucleated RBCs # 0.0 /100WBC 07/11/21 12:20 Specimen Type Arterial 07/11/21 12:21 Sample Site Brachial, left 07/11/21 12:21 ABG pH 7.55 (7.35-7.45) H 07/11/21 12:21 ABG pCO2 23.1 mmHg (35-45) L 07/11/21 12:21 ABG pO2 96.2 mmHg (80.0-100.0) 07/11/21 12:21 ABG HCO3 20.3 mmol/L (22-26) L 07/11/21 12:21 ABG O2 Saturation 99.1 07/11/21 12:21 ABG Base Excess -0.1 mmol/L (-2.0-2.0) 07/11/21 12:21 Satish Test N/a 07/11/21 12:21 A-a O2 Gradient 3.0 mmHg (5-10) L 07/11/21 12:21 Hematocrit 44.9 % (37-47) 07/11/21 12:21 Hgb O2 Saturation 96.3 % (95-100) 07/11/21 12:21 Carboxyhemoglobin 2.2 %THgb (0.4-20.1) 07/11/21 12:21 Methemoglobin 0.7 % (0.4-1.5) 07/11/21 12:21 Total Hemoglobin 14.7 g/dL (12-16) 07/11/21 12:21 Sodium 139.0 mmol/L (131-143) 07/11/21 12:21 Potassium 3.5 mmol/L (3.5-5.0) 07/11/21 12:21 Glucose 226.0 mg/dL (70-115) H 07/11/21 12:21 Ionized Calcium 1.2 mmol/L (1.1-1.4) 07/11/21 12:21 O2 Delivery Device Room air 07/11/21 12:21 FiO2 21.0 % 07/11/21 12:21 Pensionholder Information Clerk ID Am[facility] 07/11/21 12:21 Sodium 136 mmol/L (136-145) 07/11/21 12:20 Potassium 4.8 mmol/L (3.5-5.1) 07/11/21 12:20 Chloride 95 mmol/L (98-107) L 07/11/21 12:20 Carbon Dioxide 21 mmol/L (22-29) L 07/11/21 12:20 Anion Gap 24.8 (5-19) H 07/11/21 12:20 BUN 17 mg/dL (6-20) 07/11/21 12:20 Creatinine 0.5 mg/dL (0.5-0.9) 07/11/21 12:20 GFR Calculation 132.2 mL/min (90-130) H 07/11/21 12:20 Glucose 197 mg/dL (65-115) H 07/11/21 12:20 Calculated Osmolality 289 mOsm/kg (285-295) 07/11/21 12:20 Calcium 11.6 mg/dL (8.5-10.5) H 07/11/21 12:20 Magnesium 2.0 mg/dL (1.7-2.3) 07/11/21 12:20 Total Bilirubin 0.8 mg/dL (0.15-1.2) 07/11/21 12:20 AST 62 U/L (0-32) H 07/11/21 12:20 ALT 118 U/L (0-33) H 07/11/21 12:20 Alkaline Phosphatase 106 IU/L (35-105) H 07/11/21 12:20 Troponin T Baseline 18 ng/L (0-10) H 07/11/21 12:20 Troponin T 120 Minute 23.46 ng/L (0-10) H 07/11/21 14:45 Delta Troponin T 5.46 ABS# (0-10) 07/11/21 14:45 Total Protein 8.8 g/dL (6.6-8.7) H 07/11/21 12:20 Albumin 5.6 g/dL (3.5-5.2) H 07/11/21 12:20 Globulin 3.2 g/dL (1.3-4.6) 07/11/21 12:20 Lipase 52 U/L (13-60) 07/11/21 12:20 TSH 4.82 uIU/mL (0.27-4.20) H 07/11/21 12:20 Urine Color Straw (Yellow) 07/11/21 12:37 Urine Appearance Clear (CLEAR) 07/11/21 12:37 Urine pH 7 (5-7) 07/11/21 12:37 Ur Specific [place] 1.005 (1.005-1.030) 07/11/21 12:37 Urine Protein Neg (Negative) 07/11/21 12:37 Urine Glucose (UA) Norm (Normal) 07/11/21 12:37 Urine Ketones 1+ (Negative) H 07/11/21 12:37 Urine Blood Neg (Negative) 07/11/21 12:37 Urine Nitrate Negative (Negative) 07/11/21 12:37 Urine Bilirubin Neg (Negative) 07/11/21 12:37 Urine Urobilinogen Norm mg/dL (Negative) 07/11/21 12:37 Ur Leukocyte Esterase Negative (Negative) 07/11/21 12:37 Urine RBC None /hpf (0-2) 07/11/21 12:37 Urine WBC 5-10 /hpf (0-5) H 07/11/21 12:37 Ur Squamous Epith Cells 0-4 /hpf (0-5) H 07/11/21 12:37 Amorphous Sediment Not Reportable 07/11/21 12:37 Urine Bacteria Trace /hpf (NONE) 07/11/21 12:37 Urine Opiates Screen Negative ng/mL (Negative) 07/11/21 12:37 Ur Barbiturates Screen Negative ng/mL (Negative) 07/11/21 12:37 Ur Phencyclidine Scrn Negative ng/mL (Negative) 07/11/21 12:37 Ur Amphetamines Screen Negative ng/mL (Negative) 07/11/21 12:37 U Benzodiazepines Scrn Negative ng/mL (Negative) 07/11/21 12:37 Urine Cocaine Screen Negative ng/mL (Negative) 07/11/21 12:37 U Marijuana (THC) Screen Positive ng/mL (Negative) H 07/11/21 12:37 SARS-CoV-2 Ag (Rapid) Negative (Negative) 07/11/21 12:43 Imaging Data CXR: My impression: Chest x-ray shows nothing acute. No infiltrates or pneumothorax. Radiologist's impression: PROCEDURE INFORMATION: Exam: XR Chest Exam date and time: 07/11/2021 12:25 PM Age: 45 years old Clinical indication: Pain; Other: Svt; Additional info: Chest pain; H/o hyst TECHNIQUE: Imaging protocol: XR of the chest. Views: 1 view. COMPARISON: CR XR chest 1V portable [id number] 05/08/2021 8:41 PM FINDINGS: Lungs: Unremarkable. No consolidation. Pleural spaces: Unremarkable. No pleural effusion. No pneumothorax. Heart/Mediastinum: Unremarkable. No cardiomegaly. Bones/joints: Unremarkable. XR/XR chest 1V portable [id number] IMPRESSION: No acute findings. ? Dictated By: Nayeli Pack MD Signed By: Nayeli Pack MD Signed Date/Time: 07/11/21 1326 EKG Data EKG 1: Interpretation: Initial EKG at 1214 showed SVT with a heart rate of 204. No UT interval. Nonspecific ST-T changes. Normal axis. Normal QRS. Normal ST segment except for mild nonspecific ST-T changes. Normal QT interval. Normal T waves. No previous EKG to compare to. EKG 2: Interpretation: Repeat EKG after adenosine at 1224 showed sinus tachycardia with heart rate of 125. This was compared to previous EKG in which patient had SVT at 1214. Present EKG shows normal UT interval. Normal QRS. Normal ST segment. Normal QT interval. Normal T waves. Normal P waves. Normal EKG except for sinus tachycardia. Other Data 1213: Valsalva maneuvers including coughing, bearing down, carotid massage unilaterally on each side did not change heart rate at all. Patient verbally agreed to adenosine administration. She states she has had adenosine in the past and tolerated well. 1221: Patient was given adenosine 6 mg rapid IV push. Patient converted to sinus tachycardia 1222. 1548: Discussed case with Dr. Quintanilla hospitalist. He asked that I add D- dimer to the laboratory. Place patient in observation to the cardiac stepdown unit. He will see the patient emergency room. Critical Care Time Critical Care Time: Critical Care Time: Yes Total Critical Care Time: 45 Attestation: Critical care time of 35 minutes involving Valsalva maneuvers, IV adenosine, IV fluids, see orders. EKG interpretations. Telemetry interpretations. Discharge Plan Discharge Patient Disposition: Placed in Observation Clinical Impression: Supraventricular tachycardia, Dehydration, mild, Insulin dependent diabetes mellitus Coding Level of Care Code ED Mechanic Welder for Chg Fwd Exam Comprehensive
--- NOTE | 2021-07-11 12:30 | PC.NURSE ---
PT PLACED ON CONTINUOUS SPO2, NIBP, AND CM.
--- NOTE | 2021-07-11 12:30 | PC.NURSE ---
Addendum entered by Victor M Dwyer RN 07/11/21 12:30: 1210 Original Note: IV ATTEMPT BY CAMILLE DE JESUS WITH ULTRASOUND.
[2021-07-11 12:33] LABS: ABG PCO2 23.1 mmHg (35-45); ABG PH Result 7.55 (7.35-7.45); Arterial Blood Gas Hematocrit 44.9 % (37-47); Base Excess ABG -0.1 mmol/L (-2.0-2.0); Blood Gas Operator Identificat AMH; Blood Gas Sample Site Brachial, left; Blood Gas Sample Type Arterial; Carboxyhemoglobin 2.2 %THgb (0.4-20.1); HCO3 ABG 20.3 mmol/L (22-26); HGB O2 Sat 96.3 % (95-100); Ionized Calcium Level - ABG 1.2 mmol/L (1.1-1.4); Methemoglobin 0.7 % (0.4-1.5); Oxygen Device ROOM AIR; Oxygen Saturation ABG 99.1; PO2 ABG 96.2 mmHg (80.0-100.0); Potassium Level - ABG 3.5 mmol/L (3.5-5.0); Total Hemoglobin 14.7 g/dL (12-16)
[2021-07-11 12:47] LABS: Basophils # 0.1 10^3/uL (0.0-0.1); Basophils % 0.8 %; Eosinophils # 0.2 10^3/uL (0.0-0.8); Hematocrit 50.7 % (37.0-47.0); Hemoglobin 17.6 g/dL (11.5-15.3); Lymphocytes # 3.7 10^3/uL (0.8-4.8); Lymphocytes % 38.3 %; Mean Corpuscular HGB Conc 34.7 g/dL (30.0-36.0); Mean Corpuscular Hemoglobin 30.9 pg (28.0-34.0); Mean Corpuscular Volume 88.9 fl (81-99); Monocytes % 10.2 %; Neutrophils # 4.63 10^3/uL (1.8-7.7); Neutrophils % 48.5 %; Nucleated Red Blood Cells % 0 %; Platelet Count 348 10^3/cmm (130-400); Red Cell Distribution Width 12.7 % (12.1-15.1); White Blood Count 9.6 10^3/uL (4.0-10.0)
--- NOTE | 2021-07-11 12:47 | ECG_ITS ---
[facility] Test Date: 2021-07-11 Pat Name: Mena Cano Department: Room: Gender: Female Physician Assistant Psychiatry: : 1975 Requested By: Kayden Polo Order Number: [id number] Zoraida MD: Carlo Gutierrez M.D. Measurements Intervals [place] Rate: 204 P: ND: QRS: 26 QRSD: 71 T: 120 QT: 209 QTc: 386 Interpretive Statements SUPRAVENTRICULAR TACHYCARDIA NONSPECIFIC ST & T-WAVE ABNORMALITY Compared to ECG 05/08/2021 20:46:34 T-wave abnormality now present Sinus tachycardia no longer present Electronically Signed On 07-12-2021 12:14:19 STONE TRIMMER by Carlo Gutierrez M.D. [id number]
[2021-07-11 12:54] LABS: Troponin(5th) Baseline 18 ng/L (0-10)
[2021-07-11 13:01] LABS: Amphetamines Screen Urine Negative (Negative); Barbiturates Screen Urine Negative (Negative); Benzodiazepines Screen Urine Negative (Negative); Cocaine Screen Urine Negative (Negative); Opiate Screen Urine Negative (Negative); PCP Screen Urine Negative (Negative); THC Screen Urine Positive (Negative)
[2021-07-11 13:03] LABS: Alanine Aminotransferase 118 U/L (0-33); Albumin Level 5.6 g/dL (3.5-5.2); Alkaline Phosphatase 106 IU/L (35-105); Blood Urea Nitrogen 17 mg/dL (6-20); Calcium 11.6 mg/dL (8.5-10.5); Carbon Dioxide 21 mmol/L (22-29); Chloride 95 mmol/L (98-107); Globulin 3.2 g/dL (1.3-4.6); Glomerular Filtration Rate 132.2 mL/min (90-130); Glucose 197 mg/dL (65-115); Lipase 52 U/L (13-60); Osmolality Calculated 289 mOsm/kg (285-295); Sodium 136 mmol/L (136-145); Thyroid Stimulating Hormone 4.82 uIU/mL (0.27-4.20); Total Bilirubin 0.8 mg/dL (0.15-1.2); Total Protein 8.8 g/dL (6.6-8.7)
[2021-07-11 13:04] LABS: Anion Gap 24.8 (5-19); Aspartate Amino Transferase 62 U/L (0-32); Potassium 4.8 mmol/L (3.5-5.1)
[2021-07-11 13:09] LABS: Add Urine Culture? No; Bacteria Urine TRACE /hpf; Bilirubin Urine Neg (Negative); Blood Urine Neg (Negative); Glucose Urine UA Norm (Normal); Ketones Urine 1+ (Negative); Leukocyte Esterase Urine Negative (Negative); Nitrate Urine Negative (Negative); Protein Urine Neg (Negative); Specific Gravity, Urine 1.005 (1.005-1.030); Squamous Epithelial Cell Urine 0-4 /hpf (0-5); Urine Appearance Clear (CLEAR); Urine Color Straw (Yellow); Urobilinogen Urine Norm (Negative); pH Urine 7 (5-7)
--- NOTE | 2021-07-11 13:13 | PC.NURSE ---
report given to Allen gusman assumed care.
[2021-07-11 13:14] LABS: SARS Covid-2 Antigen Negative (Negative)
[2021-07-11] MEDS: metoprolol tartrate 1 mg/1 mL SDV 5 mL 5 MG IVP (13:21)
--- NOTE | 2021-07-11 13:29 | PC.NURSE ---
komal c/o increasing chest pain. Provider notified for possible medication intervention. patient in no obivous distress.
[2021-07-11] MEDS: morphine 4 mg/mL SDV 1 mL 2 MG IVP ×3 (13:37→21:40)
[2021-07-11] MEDS: ondansetron 2 mg/ML SDV 2 mL 4 MG IVP (13:37)
[2021-07-11 15:39] LABS: Troponin 5 2HR 23.46 ng/L (0-10)
[2021-07-11 15:43] LABS: Troponin 5 2HR Delta 5.46 ABS# (0-10)
[2021-07-11] MEDS: sodium chloride 0.9% 1,000 ML 250 ML IV ×2 (16:17→21:43)
[2021-07-11 16:35] LABS: D Dimer 0.34 ug/mIFEU (0-0.59)
[2021-07-11 17:37] LABS: Glucose Point of Care 139 mg/dL (70-110)
--- NOTE | 2021-07-11 17:58 | PM.HP ---
Providers/Chief Complaint Admitting Physician: Keyon Quintanilla Primary Care Provider: Israel Otero MD Chief Complaint: SVT History of Present Illness Pleasant 45-year-old lady with history of DM 2, SVT, current smoker, reports also hemochromatosis, GERD, chronic back pain, with recurrent visits to ER as she is awaiting appointment at pain clinic, with history of difficulties obtaining insurance due to which did not have treatment for any of her conditions up until about 6 months ago, started feeling unwell over the last several days, and over the last 2-3 days has run out of several medications which she stopped taking including gabapentin, tramadol, levothyroxine, and states she stopped taking Victoza as well. She has been experiencing epigastric to lower chest sharp pain, which she says is sometimes positional getting worse when she is standing up, as well as quite a bit of nausea, with very poor oral intake at home. This morning she woke up with very high tachycardia which felt like recurrence of her SVT, woke up her and proceeded to ER where heart rates were noted as high as 200 bpm, treated with adenosine, fluid bolus due to dehydration with residual sinus tachycardia, given metoprolol IV, morphine for pain, Zofran for nausea. Heart rate improved to about 105. Noted mild abnormality of troponin, 18 at baseline, 23.46 at 2 hours. Lipase noted normal. TSH mildly elevated 4.82. Potassium 4.8. Magnesium 2. She is afebrile, denies cough other than her smoker's cough which is usual, no current headache, no diarrhea. Chest x-ray without acute findings. UA with 5-10 WBCs, 1+ ketones. ABG 7.55/23.1/96.2. UDS positive for marijuana. Noted chronically elevated liver parameters, AST 62, ALT 118. Alk phos 106. Rapid COVID-19 antigen negative. Review of Systems Const: Reports: change in appetite and change in sleep pattern; Denies: fever(s), chills or malaise Eyes: Denies: change in vision or eye redness ENMT: Denies: throat pain, oral sores or ear or mastoid pain Card: Reports: chest pain and palpitations; Denies: edema, pre-syncope or dyspnea on exertion Resp: Reports: productive cough (daily smoker's cough); Denies: dyspnea, change in phlegm color or hemoptysis GI: Reports: abdominal pain and nausea; Denies: vomiting, diarrhea, constipation, hematochezia or melena : Denies: urinary frequency or hematuria Musc: Reports: back pain (chronic); Denies: joint swelling or joint redness Skin/Breast: Denies: rash, sores or new lesions Neuro: Denies: headache(s), numbness in extremities, weakness in extremities, dizziness, confusion or seizure-like activity Endo: Denies: polyuria or polydipsia Valentino/Lymph: Denies: easy bleeding or purpura All/Imm: Denies: urticaria, throat swelling or tongue swelling Medications/Allergies Home Medications Medication Instructions Recorded Confirmed Last Taken Type acetaminophen 500 mg tablet 1,000 - 2,000 mg PO Q4H PRN 03/09/21 07/11/21 Unknown History atenolol 25 mg tablet 25 mg PO QAM #30 tab 05/17/21 07/11/21 07/09/21 Rx buspirone 10 mg tablet 10 mg PO TID #90 tab 05/17/21 07/11/21 07/09/21 Rx celecoxib 200 mg capsule 200 mg PO BID PRN #60 cap 05/17/21 07/11/21 Unknown Rx glipizide 10 mg tablet, extended 10 mg PO BID #60 tab 05/17/21 07/11/21 07/09/21 Rx release 24 hr levothyroxine 50 mcg tablet 50 mcg PO QAM #30 tab 05/17/21 07/11/21 07/09/21 Rx omeprazole 20 mg capsule,delayed 20 mg PO DAILY PRN #30 cap 05/17/21 07/11/21 07/09/21 Rx release metformin 500 mg tablet 1,000 mg PO BID 30 Days #120 tab 05/18/21 07/11/21 07/09/21 Rx mupirocin 2 % topical ointment 1 applic TOPICAL BID 14 Days #22 g 05/19/21 07/11/21 Unknown Rx blood sugar diagnostic (Accu-Chek #100 ea 05/24/21 07/11/21 Unknown Rx Guide test strips) blood-glucose meter #1 ea 05/24/21 07/11/21 Unknown Rx lancets 33 gauge (BD Ultra Fine #100 ea 05/24/21 07/11/21 Unknown Rx Lancets) amitriptyline 10 mg tablet 10 mg PO DAILY 06/22/21 07/11/21 07/09/21 History liraglutide 0.6 mg/0.1 mL (18 mg/3 1.8 mg (0.3 mL) SUBCUT DAILY #9 ml 06/30/21 07/11/21 07/09/21 Rx mL) subcutaneous pen injector (Victoza 3-Navneet) ondansetron HCl 4 mg tablet 4 mg PO Q8H PRN #30 tab 06/30/21 07/11/21 Unknown Rx tramadol 100 mg tablet 100 mg PO BID #60 tab 07/06/21 07/11/21 Unknown Rx tramadol 100 mg tablet 100 mg PO BID #6 tab 07/07/21 07/11/21 Unknown Rx diclofenac sodium 75 mg 75 mg PO Q12H PRN 07/10/21 07/11/21 Unknown History tablet,delayed release gabapentin 300 mg capsule See Rx Instructions .ROUTE .COMPLEX 07/10/21 07/11/21 07/09/21 History mirtazapine 15 mg tablet 15 mg PO BEDTIME 07/10/21 07/11/21 07/09/21 History quetiapine 50 mg tablet 100 mg PO BEDTIME PRN 07/10/21 07/11/21 07/09/21 History trazodone 100 mg tablet 100 mg PO BEDTIME 07/10/21 07/11/21 07/09/21 History Allergies Allergy/AdvReac Type Severity Reaction Status Date / Time amoxicillin Allergy Unknown Verified 07/10/21 11:18 PFSH Acute PFSH: Medical History Anxiety and depression Chronic hip pain Chronic low back pain with left-sided sciatica Chronic nausea Diabetes type 2, uncontrolled Diabetic neuropathy Dyslipidemia Elevated transaminase level GERD (gastroesophageal reflux disease) Hepatitis C 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, s/p treatment with interferon in ~ 1999 by Eddie History of MRSA infection diabetic wounds History of rheumatoid arthritis Hypothyroidism Marijuana use Nicotine dependence, cigarettes, uncomplicated JOSE (obstructive sleep apnea) per sleep study 2010, CPAP of 13 recommended at that time, no longer with machine Osteoarthritis involving multiple joints on both sides of body PTSD (post-traumatic stress disorder) Right flank pain, chronic Supraventricular tachycardia (~04/2020) identified during ED visit 04/2020, treated with 6mg adenosine with conversion to sinus Surgical History History of hysterectomy (~2011) also Kimberly urethral plication History of incision and drainage (~2013) right upper extremity and R lower extremity History of tubal ligation History of umbilical hernia repair (~2011) Family History Father Diabetes Mother Diabetes Grandfather Pacemaker Denies family history of Stroke Social History Smoking and tobacco status: current every day smoker cigarettes Packs smoked per day: 0.5 Second hand smoke exposure: Yes Alcohol intake: never Marital status: Life Partner Number of children: 2 Number of grandchildren: 0 Current occupational status: unemployed Vitals/I&O/Wt Last Vital Signs Temp 98.1 F 07/11/21 16:47 Pulse 103 H 07/11/21 16:47 Resp 21 H 07/11/21 17:38 BP 154/99 07/11/21 16:47 Pulse Ox 100 07/11/21 16:47 07/11/21 07/11/21 07/11/21 06:59 14:59 22:59 Intake Total 1999 Balance 1999 Weight last 48 hrs Weight 58.967 kg Physical Exam Const: COMMON NORMALS: no acute distress and patient oriented x3 HENMT: COMMON NORMALS: oropharynx normal TEETH & GINGIVA: Yes edentulous Neck/C-Spine: COMMON NORMALS: no JVD Resp: COMMON NORMALS: normal respiratory effort and clear to auscultation bilaterally AUSCULTATION: clear to auscultation bilaterally Cardio: COMMON NORMALS: no JVD, regular rhythm, S1 normal heart sound present, S2 normal heart sound present and No murmurs present (Cardio) RATE: tachycardic RHYTHM: regular rhythm HEART SOUNDS: S1 normal heart sound present and S2 normal heart sound present GI: COMMON NORMALS: Normal to inspection, nondistended, normoactive bowel sounds present, Soft to palpation and non-tender PALPATION: Yes Soft to palpation Extremity: COMMON NORMALS: no joint enlargement and no pedal edema Neuro: COMMON NORMALS: patient oriented x3 and moves all extremities Skin: COMMON NORMALS: no rashes or lesions noted GENERAL SKIN EXAM: no rashes or lesions noted Data : 07/11/21 12:20 07/11/21 12:20 Micro: Microbiology 07/11/21 15:09 Blood Culture - Preliminary Blood SPECIMEN COLLECTED 07/11/21 14:45 Blood Culture - Preliminary Blood SPECIMEN COLLECTED A&P Assessment and plan (1) Chest pain: Likely gastritis, esophagitis, or PUD. Complete troponin EKG series. So far no suggestion of acute OR. Does not appear related to SVT which started this morning, was having chest discomfort earlier in the week. This appears related to gastritis, possibly esophagitis, possibly PUD. Likely related to NSAID use with celecoxib, diclofenac. Associated with nausea, poor oral intake. With chronic smoking history would benefit from assessment by endoscopy after discharge. Monitor blood counts. Increase PPI dose to twice daily currently. Add sucralfate. Discontinue NSAIDs at discharge. Trial of oral intake as tolerating. Monitor on telemetry. D-dimer not elevated. Lipase normal. Status: Acute (2) Sinus tachycardia: After resolution of SVT, persistence of sinus tachycardia, possibly secondary to dehydration. Continue IV fluid. Possibly withdrawal from beta-leatha after stopped taking medication. Resume beta-leatha. Possibly withdrawal from gabapentin. Resume. Does not appear to have pneumonia or other infection, although some pyuria, urine culture pending. Did not report urine symptoms. Cannot exclude UTI, please follow-up urine culture. For now not starting antibiotics. No sign of sepsis. D-dimer normal. Status: Acute (3) Has run out of medications: Reports ran out of gabapentin, tramadol, levothyroxine. Stopped taking. Appears also is not taking beta-leatha due to feeling unwell. Will need new prescriptions at discharge. States has not received tramadol from primary provider, pending appointment to pain clinic. Status: Acute (4) Dehydration: Continue IVF for now. Oral intake is tolerating. Status: Acute (5) Supraventricular tachycardia: History of SVT, here responded to adenosine. Resume beta-leatha. Resume other regular medicines. Status: Acute (6) Pyuria: No antibiotic for now as did not report urinary symptoms, but cannot exclude UTI. Please follow-up culture results. Status: Acute (7) Ketonuria: Does not appear to be in ketoacidosis, not acidemic. Will start SSI insulin, receiving IV hydration. Check serum ketones. Consider carbohydrate diet. She feels hungry could eat apart from sharp lower chest/epigastric pain Status: Acute (8) Nausea: Status: Acute (9) At risk for inadequate oral intake: Status: Acute Plan Hypothyroidism: TSH mildly elevated at 4.82. Resume levothyroxine when she stopped taking. Chronic transaminitis and alk phos elevation Anxiety and depression DM2: Hold oral hypoglycemics while in the hospital. Insulin sliding scale (carbohydrate diet). Reports hemochromatosis previously treated with intermittent phlebotomies Other chronic medical conditions noted. Attestations Medical Necessity Statement*: Place in observation for additional assess management following SVT, with persistent sinus tachycardia, chest pain, nausea, poor oral intake with dehydration possible medication withdrawal, after having run out of medications. Coding Level of Care Code Acute Emergency Planning And Response Manager for Esperanza Hernandez Diagnoses Chest pain R07.9 Sinus tachycardia R00.0 Supraventricular tachycardia I47.1 Dehydration E86.0 Pyuria R82.81 Has run out of medications Z78.9 Ketonuria R82.4 Nausea R11.0 At risk for inadequate oral intake Z91.89
[2021-07-11] MEDS: heparin 5,000 unit/mL INJ 1 mL 5000 UNIT SUBCUT (18:25)
[2021-07-11] MEDS: gabapentin 300 mg Capsule 900 MG PO (18:25)
[2021-07-11] MEDS: pantoprazole 40 mg SDV IVP (18:25)
[2021-07-11 18:52] LABS: Troponin 5 6HR 33.26 ng/L (0-10)
--- NOTE | 2021-07-11 18:57 | PC.NURSE ---
admitted into room 105 at 1700.sr/st on monitor.oriented to room environment.instructed to notify staff for any chest pain,sob,nausea or for any concerns at all.pt verb understanding of instructions
[2021-07-11 18:59] LABS: Troponin 5 6HR Delta 15.26 ng/L (0-12)
[2021-07-11 19:06] LABS: Ketone (Acetest) Serum Negative (Negative)
[2021-07-11 19:43] LABS: Glucose Point of Care 223 mg/dL (70-110)
[2021-07-11] MEDS: trazodone 50 mg Tablet PO (20:01)
[2021-07-11] MEDS: mirtazapine 15 mg Tablet PO (20:01)
[2021-07-11] MEDS: sucralfate 1 gm Tablet PO (20:03)
[2021-07-11] MEDS: insulin lispro 100 unit/1 mL SUBCUT (20:04)
[2021-07-12] VITALS (7 sets, daily range): BP systolic 121–130; BP diastolic 73–87; PULSE 86–100; RESP 15–20; TEMP 36.4–36.8; O2SAT 95–100
[2021-07-12] MEDS: morphine 4 mg/mL SDV 1 mL 2 MG IVP ×3 (02:05→10:06)
[2021-07-12] MEDS: heparin 5,000 unit/mL INJ 1 mL 5000 UNIT SUBCUT (02:06)
[2021-07-12 03:36] LABS: Basophils # 0.1 10^3/uL (0.0-0.1); Basophils % 1.4 %; Eosinophils # 0.2 10^3/uL (0.0-0.8); Eosinophils % 3.5 %; Hematocrit 35.6 % (37.0-47.0); Hemoglobin 12.2 g/dL (11.5-15.3); Lymphocytes # 2.4 10^3/uL (0.8-4.8); Lymphocytes % 37.8 %; Mean Corpuscular HGB Conc 34.3 g/dL (30.0-36.0); Mean Corpuscular Volume 90.6 fl (81-99); Mean Platelet Volume 8.8 fL (7.4-10.4); Monocytes # 0.7 10^3/uL (0.2-0.9); Monocytes % 11.4 %; Neutrophils % 45.7 %; Nucleated Red Blood Cells % 0 %; Platelet Count 313 10^3/cmm (130-400); Red Blood Count 3.93 10^6/uL (4.1-5.3); Red Cell Distribution Width 12.9 % (12.1-15.1); White Blood Count 6.3 10^3/uL (4.0-10.0)
[2021-07-12 04:05] LABS: Alanine Aminotransferase 77 U/L (0-33); Albumin Level 3.9 g/dL (3.5-5.2); Alkaline Phosphatase 83 IU/L (35-105); Anion Gap 13.7 (5-19); Aspartate Amino Transferase 36 U/L (0-32); Blood Urea Nitrogen 15 mg/dL (6-20); Calcium 8.9 mg/dL (8.5-10.5); Carbon Dioxide 23 mmol/L (22-29); Chloride 104 mmol/L (98-107); Globulin 2.4 g/dL (1.3-4.6); Glomerular Filtration Rate 171.1 mL/min (90-130); Glucose 177 mg/dL (65-115); Osmolality Calculated 289 mOsm/kg (285-295); Potassium 3.7 mmol/L (3.5-5.1); Sodium 137 mmol/L (136-145); Total Bilirubin 0.3 mg/dL (0.15-1.2); Total Protein 6.3 g/dL (6.6-8.7)
[2021-07-12 04:12] LABS: Creatinine Clr Calc Pharmacy 151.1612
[2021-07-12] MEDS: pantoprazole 40 mg SDV IVP (06:09)
[2021-07-12] MEDS: atenolol 50 mg Tablet 25 MG PO (06:10)
[2021-07-12] MEDS: sucralfate 1 gm Tablet PO (06:10)
[2021-07-12] MEDS: levothyroxine 50 mcg Tablet PO (06:10)
[2021-07-12 06:47] LABS: Glucose Point of Care 291 mg/dL (70-110)
[2021-07-12] MEDS: insulin lispro 100 unit/1 mL SUBCUT (08:32)
[2021-07-12] MEDS: gabapentin 300 mg Capsule 900 MG PO (08:33)
--- NOTE | 2021-07-12 08:37 | PM.DCS ---
Discharge Providers Date of Admission: 07/11/21 15:52 Date of Discharge: July 12, 2021 Attending Provider at Admission: eKyon Quintanilla Attending Provider at Discharge: Tonny Sanford MD Primary Care Provider: Israel Otero MD Diagnoses at Discharge Discharge Diagnosis (1) Chest pain: Status: Acute (2) Sinus tachycardia: Status: Acute (3) Has run out of medications: Status: Acute (4) Dehydration: Status: Acute (5) Supraventricular tachycardia: Status: Acute Permanent problem details: identified during ED visit 04/2020, treated with 6mg adenosine with conversion to sinus (6) Pyuria: Status: Acute (7) Ketonuria: Status: Acute (8) Nausea: Status: Acute (9) At risk for inadequate oral intake: Status: Acute Reason for Visit Reason for Visit: SVT Hospital Course Hospital Course 45-year-old female with a history of diabetes SVT active smoker presented to the hospital for not feeling well. Patient presented to the hospital because of palpitations, in the ER her heart rate was 200s, responded well to adenosine for SVT. After that she was in persistent sinus tachycardia. Patient could not use her medications for last 2 days because of not feeling well. She also stopped taking her levothyroxine. She was diagnosed with gastritis/esophagitis and possible duodenal ulcer as per epigastric burning sensation gets worse when she is not eating. She was told to avoid Celebrex and any NSAIDs. She was given Protonix and sucralfate at the time of discharge and Dr. Villareal's referral for possible EGD outpatient. Of note, drug screen positive for marijuana. COVID-19 negative.D-dimer unremarkable to rule out PE. Physical Exam Narrative: Patient lying comfortably in her bed Nonfocal neuro exam Saturating well on room air I do not see active signs of dehydration No abdominal pain No active chest pain S1, S2 sinus rhythm heart rate in 80s No signs of edema Discharge Data Studies Completed and Pending Completed Studies During Hospitalization Category Date Time Status XR chest 1V portable [id number] Urgent Exams 07/11/21 12:25 Completed Pending at discharge Category Date Time Status Blood Culture Stat Lab 07/11/21 15:09 Results Comprehensive Metabolic Panel AM LABS Lab 07/13/21 04:00 Ordered Comprehensive Metabolic Panel AM LABS Lab 07/14/21 04:00 Ordered Urine Culture Stat Lab 07/11/21 12:37 Results Radiology Impressions Chest X-Ray 07/11/21 12:25 IMPRESSION: No acute findings. Laboratory Results WBC 6.3 10^3/uL (4.0-10.0) 07/12/21 02: RBC 3.93 10^6/uL (4.1-5.3) L 07/12/21 02:28 Hgb 12.2 g/dL (11.5-15.3) D 07/12/21 02:28 Hct 35.6 % (37.0-47.0) L 07/12/21 02:28 MCV 90.6 fl (81-99) 07/12/21 02: MCH 31.0 pg (28.0-34.0) 07/12/21 02: MCHC 34.3 g/dL (30.0-36.0) 07/12/21 02: RDW 12.9 % (12.1-15.1) 07/12/21 02:28 Plt Count 313 10^3/cmm (130-400) 07/12/21 02:28 MPV 8.8 fL (7.4-10.4) 07/12/21 02: Neut % (Auto) 45.7 % 07/12/21 02: Lymph % (Auto) 37.8 % 07/12/21 02: Towner % (Auto) 11.4 % 07/12/21 02: Eos % (Auto) 3.5 % 07/12/21 02: Baso % (Auto) 1.4 % 07/12/21 02:28 Neut # (Auto) 2.90 10^3/uL (1.8-7.7) 07/12/21 02:28 Lymph # (Auto) 2.4 10^3/uL (0.8-4.8) 07/12/21 02:28 Towner # (Auto) 0.7 10^3/uL (0.2-0.9) 07/12/21 02:28 Eos # (Auto) 0.2 10^3/uL (0.0-0.8) 07/12/21 02:28 Baso # (Auto) 0.1 10^3/uL (0.0-0.1) 07/12/21 02:28 Nucleated RBC % (auto) 0 % 07/12/21 02: Nucleated RBCs # 0.0 /100WBC 07/12/21 02: D-Dimer 0.34 ug/mIFEU (0-0.59) 07/11/21 16:15 Specimen Type Arterial 07/11/21 12:21 Sample Site Brachial, left 07/11/21 12:21 ABG pH 7.55 (7.35-7.45) H 07/11/21 12:21 ABG pCO2 23.1 mmHg (35-45) L 07/11/21 12:21 ABG pO2 96.2 mmHg (80.0-100.0) 07/11/21 12: ABG HCO3 20.3 mmol/L (22-26) L 07/11/21 12: ABG O2 Saturation 99.1 07/11/21 12:21 ABG Base Excess -0.1 mmol/L (-2.0-2.0) 07/11/21 12:21 Satish Test N/a 07/11/21 12:21 A-a O2 Gradient 3.0 mmHg (5-10) L 07/11/21 12:21 Hematocrit 44.9 % (37-47) 07/11/21 12:21 Hgb O2 Saturation 96.3 % (95-100) 07/11/21 12: Carboxyhemoglobin 2.2 %THgb (0.4-20.1) 07/11/21 12: Methemoglobin 0.7 % (0.4-1.5) 07/11/21 12:21 Total Hemoglobin 14.7 g/dL (12-16) 07/11/21 12:21 Sodium 139.0 mmol/L (131-143) 07/11/21 12:21 Potassium 3.5 mmol/L (3.5-5.0) 07/11/21 12:21 Glucose 226.0 mg/dL (70-115) H 07/11/21 12:21 Ionized Calcium 1.2 mmol/L (1.1-1.4) 07/11/21 12:21 O2 Delivery Device Room air 07/11/21 12:21 FiO2 21.0 % 07/11/21 12:21 Assistant Press Operator Offset ID Amh 07/11/21 12:21 Sodium 137 mmol/L (136-145) 07/12/21 02:28 Potassium 3.7 mmol/L (3.5-5.1) 07/12/21 02:28 Chloride 104 mmol/L (98-107) 07/12/21 02:28 Carbon Dioxide 23 mmol/L (22-29) 07/12/21 02:28 Anion Gap 13.7 (5-19) 07/12/21 02:28 BUN 15 mg/dL (6-20) 07/12/21 02:28 Creatinine 0.4 mg/dL (0.5-0.9) L 07/12/21 02:28 GFR Calculation 171.1 mL/min (90-130) H 07/12/21 02:28 Glucose 177 mg/dL (65-115) H 07/12/21 02:28 POC Glucose 291 mg/dL (70-110) H 07/12/21 06:22 Calculated Osmolality 289 mOsm/kg (285-295) 07/12/21 02:28 Calcium 8.9 mg/dL (8.5-10.5) 07/12/21 02:28 Magnesium 2.0 mg/dL (1.7-2.3) 07/11/21 12:20 Total Bilirubin 0.3 mg/dL (0.15-1.2) 07/12/21 02:28 AST 36 U/L (0-32) H 07/12/21 02:28 ALT 77 U/L (0-33) H 07/12/21 02:28 Alkaline Phosphatase 83 IU/L (35-105) 07/12/21 02:28 Troponin T Baseline 18 ng/L (0-10) H 07/11/21 12:20 Troponin T 120 Minute 23.46 ng/L (0-10) H 07/11/21 14:45 Delta Troponin T 5.46 ABS# (0-10) 07/11/21 14:45 Troponin T Hi Sens 6Hr 33.26 ng/L (0-10) H 07/11/21 18:29 Troponin T Hi Sens 6Hr Delta 15.26 ng/L (0-12) H* 07/11/21 18:29 Total Protein 6.3 g/dL (6.6-8.7) L D 07/12/21 02:28 Albumin 3.9 g/dL (3.5-5.2) 07/12/21 02: Globulin 2.4 g/dL (1.3-4.6) 07/12/21 02:28 Lipase 52 U/L (13-60) 07/11/21 12:20 TSH 4.82 uIU/mL (0.27-4.20) H 07/11/21 12:20 Urine Color Straw (Yellow) 07/11/21 12:37 Urine Appearance Clear (CLEAR) 07/11/21 12:37 Urine pH 7 (5-7) 07/11/21 12:37 Ur Specific [place] 1.005 (1.005-1.030) 07/11/21 12:37 Urine Protein Neg (Negative) 07/11/21 12:37 Urine Glucose (UA) Norm (Normal) 07/11/21 12:37 Urine Ketones 1+ (Negative) H 07/11/21 12:37 Urine Blood Neg (Negative) 07/11/21 12:37 Urine Nitrate Negative (Negative) 07/11/21 12:37 Urine Bilirubin Neg (Negative) 07/11/21 12:37 Urine Urobilinogen Norm mg/dL (Negative) 07/11/21 12:37 Ur Leukocyte Esterase Negative (Negative) 07/11/21 12:37 Urine RBC None /hpf (0-2) 07/11/21 12:37 Urine WBC 5-10 /hpf (0-5) H 07/11/21 12:37 Ur Squamous Epith Cells 0-4 /hpf (0-5) H 07/11/21 12:37 Amorphous Sediment Not Reportable 07/11/21 12:37 Urine Bacteria Trace /hpf (NONE) 07/11/21 12:37 Urine Opiates Screen Negative ng/mL (Negative) 07/11/21 12:37 Ur Barbiturates Screen Negative ng/mL (Negative) 07/11/21 12:37 Ur Phencyclidine Scrn Negative ng/mL (Negative) 07/11/21 12:37 Ur Amphetamines Screen Negative ng/mL (Negative) 07/11/21 12:37 U Benzodiazepines Scrn Negative ng/mL (Negative) 07/11/21 12:37 Urine Cocaine Screen Negative ng/mL (Negative) 07/11/21 12:37 U Marijuana (THC) Screen Positive ng/mL (Negative) H 07/11/21 12:37 Serum Ketones Negative (Negative) 07/11/21 12:20 SARS-CoV-2 Ag (Rapid) Negative (Negative) 07/11/21 12:43 Vitals Last Vital Signs Temp 98.3 F 07/12/21 07:00 Pulse 86 07/12/21 07:00 Resp 15 07/12/21 07:00 BP 121/84 07/12/21 07:00 Pulse Ox 100 07/12/21 07:00 Discharge Plan Discharge Patient Disposition: Home Condition: Stable Prescriptions: New sucralfate 100 mg/mL suspension 2 g PO BID 28 Days Qty: 1120 0RF omeprazole 20 mg capsule,delayed release(DR/EC) 20 mg PO BID Qty: 120 1RF atenolol 25 mg tablet 25 mg PO DAILY Qty: 90 3RF Continued atenolol 25 mg tablet 25 mg PO QAM Qty: 30 5RF Rx Instructions: 340 B medication buspirone 10 mg tablet 10 mg PO TID Qty: 90 5RF Rx Instructions: 340 B medication glipizide 10 mg tablet extended release 24hr 10 mg PO BID Qty: 60 5RF Rx Instructions: 340 B medication levothyroxine 50 mcg tablet 50 mcg PO QAM Qty: 30 5RF Rx Instructions: 340 B medication omeprazole 20 mg capsule,delayed release(DR/EC) 20 mg PO DAILY PRN (Reason: Heartburn & nausea) Qty: 30 5RF Rx Instructions: 340 B medication metformin 500 mg tablet 1,000 mg PO BID 30 Days Qty: 120 5RF Rx Instructions: 340 B medication mupirocin 2 % ointment 1 applic topical BID 14 Days Qty: 22 0RF ondansetron HCl 4 mg tablet 4 mg PO Q8H PRN (Reason: nausea and vomiting) Qty: 30 1RF Victoza 3-Navneet 0.6 mg/0.1 mL (18 mg/3 mL) pen injector 1.8 mg SUBCUT DAILY Qty: 9 5RF (DME) Accu-Chek Guide test strips Strip See Rx Instructions .Route Qty: 100 2RF Rx Instructions: As directed, check blood sugar, once daily (DME) blood-glucose meter Misc See Rx Instructions .Route Qty: 1 0RF Rx Instructions: As directed, test blood sugar, 1 time daily (DME) lancets [BD Ultra Fine Lancets] 33 gauge misc See Rx Instructions .Route Qty: 100 0RF Rx Instructions: As directed, test blood sugar, once, daily. tramadol 100 mg tablet 100 mg PO BID Qty: 60 0RF Rx Instructions: Refill next on or after 07/06/2021 340 B medication amitriptyline 10 mg Tablet 10 mg PO DAILY 0RF tramadol 100 mg tablet 100 mg PO BID Qty: 6 0RF trazodone 100 mg tablet 100 mg PO BEDTIME 0RF Rx Instructions: 340 B medication gabapentin 300 mg capsule See Rx Instructions .ROUTE .COMPLEX 0RF Rx Instructions: Take 3 caps in a.m. 2 caps at noon and 3 caps at noon (900-600-900 mg)340 B meds mirtazapine 15 mg tablet 15 mg PO BEDTIME 0RF quetiapine 50 mg tablet 100 mg PO BEDTIME PRN (Reason: for sleep) 0RF Rx Instructions: 340 B medication Discontinued celecoxib 200 mg capsule 200 mg PO BID PRN (Reason: chronic pain) Qty: 60 1RF Hold Instructions: Resume on 05/17/21. Rx Instructions: 340 B medication diclofenac sodium 75 mg tablet,delayed release (DR/EC) 75 mg PO Q12H PRN (Reason: Pain) 0RF acetaminophen [Tylenol Ex Str Rapid Release] 500 mg Tablet 1,000 - 2,000 mg PO Q4H PRN (Reason: Pain) 0RF Discharge Orders: Discharge Order (Routine); Ordered 07/12/21 Ordered By: Tonny Sanford Referrals: Erik Morgan MD [Physician] - 1-3 days (You have a follow appointment on Jul 14 at 3:00 PM If you are unable to keep this appointment please contact [facility] Internal Medicine to arrange your follow up care.) Israel Otero MD [Primary Care Provider] - 7-10 days (You have a follow up appointment with Dr Jeffrey if you are unable to keep this appointment please contact providers office to arrange your follow up care.) Discharge Diet: Cardiac Discharge Activity: Increase activity as tolerated Patient Instructions: Supraventricular Tachycardia (DC), Chest Pain Stoplight, Opioid Safety Discharge Attestations Time Spent in Discharge Care*: less than 30 min Status at Discharge: Cognitive status at discharge: cognitively intact, Behavioral status at discharge: cooperative, Quality Metrics Clinical Quality Measures [ No reported AMI, CVA or VTE this stay] Coding Level of Care Code Acute Chg FW DC note Diagnoses Chest pain R07.9 Sinus tachycardia R00.0 Has run out of medications Z78.9 Dehydration E86.0 Supraventricular tachycardia I47.1 Pyuria R82.81 Ketonuria R82.4 Nausea R11.0 At risk for inadequate oral intake Z91.89
--- NOTE | 2021-07-12 09:10 | PC.CHAP ---
Pastoral Care Encounter/Spiritual Assessment Type of Contact [] Declined installations inspector visit [] Patient/Family/Request visit [] Outpatient visit [] Follow-up visit [] Physician referral [] Code/Alert [x] Routine visit [] Staff referral [] Actively dying [] Patient sleeping [] Family support [] [] Out of room [] Palliative care [] [] Receiving care in room [] Pre-surgical visit [] Trauma [] Long length of stay [] ICU visit [] Other: Relational/Emotional Strength [] Patient feels connected with others/family/visitors/staff [] Distress [] Loneliness/isolation [] Abandonment Spirituality of Patient [] Person of Sirena [] Attends Mu-Ism of their Sirena [] Believes in Prayer [] Reads Bible or Restoration materials [] There are Spiritual issues to be addressed Private Duty Nurse Interventions [x] Prayer [x] Active listening [x] Non-anxious presence [x] Spiritual/emotional support [] Crisis/trauma care [] Spiritual counseling [] Bereavement support [] Provided bereavement packet [] Provided Bible/devotional materials [] Provided toy/stuffed animal, coloring book to patient or family member [] Provided Communion [] Anointing/[place] [] Salvation [x] Completed spiritual assessment [] Other: Impact on Illness or Injury [] Angry [] Fearful [] Anxious [] Often cries [] Exhaustion [] Unable to work [] Unable to attend sikhism [] Unable to walk/stand [] Unable to read [] Unable to drive [] Unable to eat/drink [] Unable to sleep [] Unable to be with family [] Patient intubated [] Other: Summary patient feeling better Time spent with patient 5 min
--- NOTE | 2021-07-12 12:31 | PC.NURSE ---
Discharge Note Patient discharged to home via private vehicle accompanied by family member. Discharge instructions reviewed with patient and/or technical sales representatives. Patient verbalized understanding of all teaching. Mobile pharmacy medications and/or prescriptions provided. Belongings/home medications returned.
== END 2021-07-12 12:15 | disposition home or self-care (01) ==
LOC: ER 15:52 → CSU 16:48
PROVIDERS: Admitting Provider Internal Medicine; Emergency Provider Family Medicine; PCP Family Medicine Adult Medicine; Visit Provider Internal Medicine
DX: R07.9 Chest pain, unspecified (principal); Z78.9 Other specified health status; E86.0 Dehydration; I47.1 Supraventricular tachycardia; R82.81 Pyuria; R82.4 Acetonuria; R11.0 Nausea; Z91.89 Other specified personal risk factors, not elsewhere classified; Z79.84 Long term (current) use of oral hypoglycemic drugs; F17.210 Nicotine dependence, cigarettes, uncomplicated; F41.9 Anxiety disorder, unspecified; F32.9 Major depressive disorder, single episode, unspecified; E11.40 Type 2 diabetes mellitus with diabetic neuropathy, unspecified; E78.5 Hyperlipidemia, unspecified
CPT/HCPCS: 36415; 36416; 36600; 71045; 80051; 80053; 80306; 81001; 82009; 82330; 82805; 82962; 83690; 83735; 84443; 84484; 85025; 85378; 87040; 87077; 87086; 87186; 87426; 93005; 96361; 96372; 96374; 96375; 99291; C9113; G0378; J0153; J1644; J1815; J2270; J2405; J3490; J7030

== ENCOUNTER 2021-07-12 20:11 | Emergency (ER) | payer MEDICAID, SELFPAY ==
--- NOTE | 2021-07-12 20:14 | ECG_ITS ---
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 Measurements Intervals [place] Rate: 170 P: [place]: QRS: 39 QRSD: 92 T: 64 QT: 253 QTc: 426 Interpretive Statements SUPRAVENTRICULAR TACHYCARDIA Compared to ECG 07/11/2021 12:24:52 Sinus tachycardia no longer present Electronically Signed On 07-12-2021 22:15:53 MEASURING MACHINE TENDER by Carlo Gutierrez M.D. [id number]
[2021-07-12 20:16] VITALS: BP 141/103; PULSE 174; RESP 18; TEMP 36.7; O2SAT 99; BMI 23.0
--- NOTE | 2021-07-12 20:21 | ED_ITS ---
HPI - Chest Pain General: Chief Complaint: Arrhythmia/Palpitations Stated Complaint: cp Time Seen by Provider: 07/12/21 20:14 Source: patient Mode of arrival: ambulatory Limitations: no limitations History of Present Illness: 45-year-old female who has a history of SVT. She states she has been in SVT multiple times actually just admitted here 2 days ago for. States she went home today feeling improved and started having palpitations again at 430 she is try to convert herself at home and has not been able to states she had some chest pain from a palpitation along with a headache. She denies any vomiting or diarrhea. Denies any fevers. Associated symptoms: Reports palpitations; Deny abdominal pain, dyspnea, fever(s), nausea or vomiting Review of Systems Const: Denies: fever(s), chills, body aches or change in appetite Eyes: Denies: blurry vision or eye discomfort ENMT: Denies: throat pain or dental pain Card: Reports: chest pain and palpitations Resp: Denies: dyspnea GI: Denies: abdominal pain, nausea, vomiting or diarrhea : Denies: dysuria Musc: Denies: neck pain or back pain Skin/Breast: Denies: rash Neuro: Denies: headache(s) Psych: Denies: depression Valentino/Lymph: Denies: easy bruising All/Imm: Denies: urticaria PFSH ED PFSH: Medical History Anxiety and depression Chronic hip pain Chronic low back pain with left-sided sciatica Chronic nausea Diabetes type 2, uncontrolled Diabetic neuropathy Dyslipidemia Elevated transaminase level GERD (gastroesophageal reflux disease) Hepatitis C 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, s/p treatment with interferon in ~ 1999 by Eddie History of MRSA infection diabetic wounds History of rheumatoid arthritis Hypothyroidism Marijuana use Nicotine dependence, cigarettes, uncomplicated JOSE (obstructive sleep apnea) per sleep study 2010, CPAP of 13 recommended at that time, no longer with machine Osteoarthritis involving multiple joints on both sides of body PTSD (post-traumatic stress disorder) Right flank pain, chronic Supraventricular tachycardia (~04/2020) identified during ED visit 04/2020, treated with 6mg adenosine with conversion to sinus Surgical History History of hysterectomy (~2011) also Kimberly urethral plication History of incision and drainage (~2013) right upper extremity and R lower extremity History of tubal ligation History of umbilical hernia repair (~2011) Family History Father Diabetes Mother Diabetes Grandfather Pacemaker Denies family history of Stroke Social History Smoking and tobacco status: current every day smoker cigarettes Packs smoked per day: 0.5 Second hand smoke exposure: Yes Alcohol intake: never Marital status: Life Partner Number of children: 2 Number of grandchildren: 0 Current occupational status: unemployed Physical Exam Const: COMMON NORMALS: no acute distress, patient oriented x3 and healthy appearing HENMT: COMMON NORMALS: normocephalic and atraumatic HEAD & SCALP: normocephalic and atraumatic Eye: COMMON NORMALS: Equal, round and reactive pupils present and EOMs intact bilaterally PUPIL: Yes Equal, round and reactive pupils present Neck/C-Spine: COMMON NORMALS: full ROM and supple Chest: COMMONS NORMALS: normal inspection of the chest and normal palpation of entire chest wall Resp: COMMON NORMALS: normal respiratory effort, No retractions, No use of accessory muscles and clear to auscultation bilaterally AUSCULTATION: clear to auscultation bilaterally Cardio: COMMON NORMALS: regular rhythm and No murmurs present (Cardio) RATE: tachycardic RHYTHM: regular rhythm GI: COMMON NORMALS: Normal to inspection, nondistended, normoactive bowel sounds present, Soft to palpation, non-tender and no masses PALPATION: Yes Soft to palpation Extremity: COMMON NORMALS: normal to inspection and full ROM Neuro: COMMON NORMALS: patient oriented x3, moves all extremities and no focal motor deficits Psych: COMMON NORMALS: mental status grossly normal, Normal thought process present and cooperative THOUGHT PROCESS: Normal thought process present Skin: COMMON NORMALS: no rashes or lesions noted and no wounds GENERAL SKIN EXAM: no rashes or lesions noted Course Vital Signs: Vital signs: Vital Signs Temperature 98.1 F 07/12/21 20:16 Pulse Rate 105 H 07/12/21 20:40 Respiratory Rate 21 H 07/12/21 20:40 Blood Pressure 112/97 07/12/21 20:40 Pulse Oximetry 100 07/12/21 20:40 MDM - Chest Pain Medical Decision Making Patient presents with SVT she has got a history of SVT patient converted here has been staying at 100 and has no symptoms she is well-appearing here stable for discharge we will get her cardiology follow-up she is to return if worsening she understands agrees to plan. EKG Data EKG 1: I personally reviewed and interpreted this EKG as follows: EKG interpretation date: 07/12/21 EKG interpretation time: 20:19 Interpretation: svt hr [address] or t wave abnormalities qrs 92 qtc 345 Discharge Plan Discharge Patient Disposition: Home Clinical Impression: Supraventricular tachycardia Condition: Stable Prescriptions: No Action atenolol 25 mg tablet 25 mg PO QAM Qty: 30 5RF Rx Instructions: 340 B medication buspirone 10 mg tablet 10 mg PO TID Qty: 90 5RF Rx Instructions: 340 B medication glipizide 10 mg tablet extended release 24hr 10 mg PO BID Qty: 60 5RF Rx Instructions: 340 B medication levothyroxine 50 mcg tablet 50 mcg PO QAM Qty: 30 5RF Rx Instructions: 340 B medication omeprazole 20 mg capsule,delayed release(DR/EC) 20 mg PO DAILY PRN (Reason: Heartburn & nausea) Qty: 30 5RF Rx Instructions: 340 B medication metformin 500 mg tablet 1,000 mg PO BID 30 Days Qty: 120 5RF Rx Instructions: 340 B medication mupirocin 2 % ointment 1 applic topical BID 14 Days Qty: 22 0RF ondansetron HCl 4 mg tablet 4 mg PO Q8H PRN (Reason: nausea and vomiting) Qty: 30 1RF Victoza 3-Navneet 0.6 mg/0.1 mL (18 mg/3 mL) pen injector 1.8 mg SUBCUT DAILY Qty: 9 5RF (DME) Accu-Chek Guide test strips Strip See Rx Instructions .Route Qty: 100 2RF Rx Instructions: As directed, check blood sugar, once daily (DME) blood-glucose meter Misc See Rx Instructions .Route Qty: 1 0RF Rx Instructions: As directed, test blood sugar, 1 time daily (DME) lancets [BD Ultra Fine Lancets] 33 gauge misc See Rx Instructions .Route Qty: 100 0RF Rx Instructions: As directed, test blood sugar, once, daily. tramadol 100 mg tablet 100 mg PO BID Qty: 60 0RF Rx Instructions: Refill next on or after 07/06/2021 340 B medication amitriptyline 10 mg Tablet 10 mg PO DAILY 0RF tramadol 100 mg tablet 100 mg PO BID Qty: 6 0RF trazodone 100 mg tablet 100 mg PO BEDTIME 0RF Rx Instructions: 340 B medication gabapentin 300 mg capsule See Rx Instructions .ROUTE .COMPLEX 0RF Rx Instructions: Take 3 caps in a.m. 2 caps at noon and 3 caps at noon (900-600-900 mg)340 B meds mirtazapine 15 mg tablet 15 mg PO BEDTIME 0RF quetiapine 50 mg tablet 100 mg PO BEDTIME PRN (Reason: for sleep) 0RF Rx Instructions: 340 B medication sucralfate 100 mg/mL suspension 2 g PO BID 28 Days Qty: 1120 0RF omeprazole 20 mg capsule,delayed release(DR/EC) 20 mg PO BID Qty: 120 1RF atenolol 25 mg tablet 25 mg PO DAILY Qty: 90 3RF Discharge Orders: Discharge ED (Routine); Ordered 07/12/21 Ordered By: Mic Frey Referrals: Israel Otero MD [Primary Care Provider] - 1-3 days Discharge Diet: Advance as tolerated Discharge Activity: Resume usual activity Patient Instructions: Supraventricular Tachycardia (ED) Coding Level of Care Code ED Compensation Supervisor for Esperanza Fwjf Exam Comprehensive
[2021-07-12] MEDS: sodium chloride 0.9% 1,000 ML 999 ML IV (20:37)
[2021-07-12] MEDS: adenosine 3 mg/mL SDV 2mL 6 MG IVP (20:37)
--- NOTE | 2021-07-12 20:37 | PC.NURSE ---
Pt. given adenosine with bolus of normal saline. Patient's heart rate responded to medication to bring heart rate from 173 to 105. Pt. states that she feels like it is easier to breath and her tightness in her chest is getting better.
[2021-07-12 20:40] VITALS: BP 112/97; PULSE 105; RESP 21; O2SAT 100
[2021-07-12 21:07] VITALS: BP 149/94; PULSE 101; RESP 18; O2SAT 100
--- NOTE | 2021-07-13 10:48 | DCPLANNER ---
Addendum entered by Maggi Flores 08/13/21 11:55: Patient had a follow up appointment scheduled for 07.26.21 with [facility] - patient did attend appointment. Original Note: manager print had message to schedule a follow up appointment for patient with [facility]. manager print called [facility], spoke with Johana, gave clinic patients information. A follow up appointment was scheduled for Monday, July 26, 2021 at 10:[address] Roth. manager print called patient and gave patient the appointment information.
== END 2021-07-12 21:09 | disposition home or self-care (01) ==
PROVIDERS: Emergency Provider Emergency Medicine; PCP Family Medicine Adult Medicine
DX: I47.1 Supraventricular tachycardia (principal); Z79.84 Long term (current) use of oral hypoglycemic drugs; E11.40 Type 2 diabetes mellitus with diabetic neuropathy, unspecified; E78.5 Hyperlipidemia, unspecified; Z86.19 Personal history of other infectious and parasitic diseases; F17.210 Nicotine dependence, cigarettes, uncomplicated
CPT/HCPCS: 93005; 96361; 96374; 99284; J0153; J7030

== ENCOUNTER → 2021-07-19 10:39 | Day surgery (SDC) | payer MEDICAID, SELFPAY ==
[2021-07-19 11:14] VITALS: BP 163/103; PULSE 97; RESP 18; TEMP 36.7; O2SAT 97
[2021-07-19 11:16] LABS: Hemoglobin 13.7 g/dL (11.5-15.3)
--- NOTE | 2021-07-19 12:15 | PC.NURSE ---
Pt to GI Lab for therapeutic phlebotomy. Hg 13.7 and Hct 39. 18 gauge started to right AC. 50 gms drained before clotting. 18 gauge to left hand. 50 gms drained before clotting. 20 gauge to right hand. 400 gm drained for total of 500 gm. Pt tolerated well. VSS.
[2021-07-19 12:25] VITALS: BP 136/87
== END ==
PROVIDERS: PCP Family Medicine Adult Medicine; Visit Provider Internal Medicine
DX: Z14.8 Genetic carrier of other disease (principal); E83.19 Other disorders of iron metabolism
CPT/HCPCS: 85014; 85018; 99195

== ENCOUNTER → 2021-07-26 10:21 | Outpatient (BNVA) | payer MEDICAID, SELFPAY | PROVIDERS: PCP Family Medicine Adult Medicine; Visit Provider Internal Medicine Cardiovascular Disease | DX: R07.9 Chest pain, unspecified (principal); I47.1 Supraventricular tachycardia; F41.9 Anxiety disorder, unspecified; E11.65 Type 2 diabetes mellitus with hyperglycemia; E78.5 Hyperlipidemia, unspecified; K21.9 Gastro-esophageal reflux disease without esophagitis; F17.210 Nicotine dependence, cigarettes, uncomplicated | CPT/HCPCS: 99204 ==

== ENCOUNTER 2021-07-31 13:57 | Emergency (ER) | payer MEDICAID, SELFPAY ==
[2021-07-31] VITALS (7 sets, daily range): BP systolic 123–134; BP diastolic 72–80; PULSE 99–123; RESP 16–27; TEMP 36.6–36.8; O2SAT 98–100; BMI 23.0
--- NOTE | 2021-07-31 14:09 | USR_ITS ---
PROCEDURE INFORMATION: Exam: US Abdomen, Limited; Right Upper Quadrant Exam date and time: 07/31/2021 2:09 PM Age: 45 years old Clinical indication: Abdominal pain; Other: Chronic; Additional info: Ruq/epigastric pain TECHNIQUE: Imaging protocol: US abdomen. Real time ultrasound with image documentation. Limited exam focused on the right upper quadrant. COMPARISON: US gall bladder [id number] 04/26/2020 5:44 PM FINDINGS: Liver: Normal. No masses. Gallbladder: Normal. No gallstones. There is no gallbladder wall thickening. Common bile duct: Normal. No stones. No dilation. Pancreas: Visualized pancreas is unremarkable. Right kidney: Measures 10.6 x 5 x 4.3 cm. No mass. No hydronephrosis. US/US gall bladder [id number] IMPRESSION: No acute findings.
--- NOTE | 2021-07-31 14:09 | XRR_ITS ---
PROCEDURE INFORMATION: Exam: XR Chest Exam date and time: 07/31/2021 2:09 PM Age: 45 years old Clinical indication: Anterior upper abdominal and epigastric pain. Lower chest discomfort for 3 days. Nausea. Chest pain. TECHNIQUE: Imaging protocol: XR of the chest. Views: 1 view. COMPARISON: CR (CHEST, ) 07/11/2021 12:42 PM FINDINGS: Lungs: No pulmonary consolidation. Pleural spaces: No pleural effusion. No pneumothorax. Heart/Mediastinum: The cardiac silhouette is likely unchanged given differences in patient rotation. No gross evidence of pneumomediastinum. Bones/joints: No gross fracture. XR/XR chest 1V portable [id number] IMPRESSION: No acute cardiopulmonary abnormality identified.
--- NOTE | 2021-07-31 14:09 | ECG_ITS ---
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 Measurements Intervals [place] Rate: 113 P: 53 MT: 140 QRS: 29 QRSD: 68 T: 57 QT: 313 QTc: 431 Interpretive Statements SINUS TACHYCARDIA LOW QRS VOLTAGE IN PRECORDIAL LEADS [QRS DEFLECTION < 1.0 mV IN CHEST LEADS] ABNORMAL RHYTHM ECG Compared to ECG 07/12/2021 20:19:51 Low QRS voltage now present Supraventricular tachycardia no longer present Electronically Signed On 08-01-2021 15:45:02 CDT by Carlo Gutierrez M.D. [email or web address] [id number]
--- NOTE | 2021-07-31 14:11 | ED_ITS ---
HPI - Chest Pain General: Chief Complaint: Chest Pain Stated Complaint: CHEST PAIN Time Seen by Provider: 07/31/21 13:59 Source: patient Mode of arrival: ambulatory Limitations: no limitations History of Present Illness: This patient presents to our emergency department because she has had anterior upper abdomen and epigastric pain with some associated lower chest discomfort for the last 3 days. She states she is not been able to eat or drink much because of the discomfort. She states sometimes it radiates into her back. She describes it as dull and aching. Sdenies any vomiting or diarrhea. She has had a prior hysterectomy and a tubal ligation. She is currently taking antireflux and antiacid medications it was previously prescribed. She also has a history of PSVT and is on medication for that condition however she is not taking any of her medications today. She smoke cigarettes but states she has not smoked for the last 3 days. She denies any fevers or chills. She denies any bloody or tarry stools. She denies melena. She denies alcohol use. No ripping or tearing pain. No known history of gallstones and has had a previous gallbladder ultrasound but she states it has been sometime ago. There is a family history of gallbladder disease. Quality: aching and dull Relieving factors: nothing Associated symptoms: Reports abdominal pain and nausea; Deny dyspnea, fever(s), leg edema, palpitations, syncope or vomiting Treatment prior to arrival: none Risk Factors: Coronary artery disease risk factors: smoking history Review of Systems Const: Reports: change in appetite; Denies: fever(s), chills or body aches Eyes: Denies: change in vision ENMT: Denies: throat pain or odynophagia Card: Denies: palpitations, irregular heart rhythm, swelling of feet/ankles, lightheadedness or syncope Resp: Denies: dyspnea, productive cough or non-productive cough GI: Reports: abdominal pain and nausea; Denies: vomiting, hematochezia or melena : Denies: flank pain, difficulty voiding or dysuria Musc: Denies: neck pain, extremity pain or extremity swelling Skin/Breast: Denies: rash or pruritus Neuro: Denies: headache(s), numbness in extremities or weakness in extremities Psych: Reports: panic attacks and change in appetite Endo: Denies: polyuria, polydipsia, cold intolerance or excessive sweating Valentino/Lymph: Denies: easy bruising or easy bleeding PFS ED PFSH: Medical History Anxiety and depression At risk for inadequate oral intake Chest pain Chronic hip pain Chronic low back pain with left-sided sciatica Chronic nausea Dehydration Dehydration, mild Diabetes type 2, uncontrolled Diabetic neuropathy Dyslipidemia Elevated transaminase level GERD (gastroesophageal reflux disease) Has run out of medications Hepatitis C 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, s/p treatment with interferon in ~ 1999 by Eddie History of MRSA infection diabetic wounds History of rheumatoid arthritis Hypothyroidism Insulin dependent diabetes mellitus Ketonuria Marijuana use Nausea Nicotine dependence, cigarettes, uncomplicated JOSE (obstructive sleep apnea) per sleep study 2010, CPAP of 13 recommended at that time, no longer with m achine Osteoarthritis involving multiple joints on both sides of body Paroxysmal SVT (supraventricular tachycardia) PTSD (post-traumatic stress disorder) Pyuria Right flank pain, chronic Sinus tachycardia Supraventricular tachycardia (~04/2020) identified during ED visit 04/2020, treated with 6mg adenosine with conversion to sinus Surgical History History of hysterectomy (~2011) also Kimberly urethral plication History of incision and drainage (~2013) right upper extremity and R lower extremity History of tubal ligation History of umbilical hernia repair (~2011) Family History Father Diabetes Mother Diabetes Grandfather Pacemaker Denies family history of Stroke Social History Smoking and tobacco status: current every day smoker (1 pack every 3-4 days) cigarettes Packs smoked per day: 0.5 Second hand smoke exposure: Yes Alcohol intake: never Marital status: Life Partner Number of children: 2 Number of grandchildren: 0 Current occupational status: unemployed Physical Exam Narrative: EXAM NARRATIVE: She is alert and responds well to questions. She is noted upon arrival to the room to be intermittently moaning but is able to converse with me in complete sentences without any seeming symptoms during those periods of time. Const: COMMON NORMALS: no acute distress, average body habitus and patient oriented x3 GENERAL APPEARANCE: cooperative HENMT: COMMON NORMALS: normocephalic, Normal external nose present, Normal nasal mucous membranes and turbinates present, moist oral mucous membranes and oropharynx normal HEAD & SCALP: normocephalic NOSE: Normal external nose present and Normal nasal mucous membranes and turbinates present Eye: COMMON NORMALS: Equal, round and reactive pupils present, EOMs intact bilaterally, conjunctivae normal and no scleral icterus CONJUNCTIVA: Yes conjunctivae normal PUPIL: Yes Equal, round and reactive pupils present Neck/C-Spine: COMMON NORMALS: full ROM, no lymphadenopathy, supple and no JVD Lymph: LYMPHATIC: no lymphadenopathy noted Chest: COMMONS NORMALS: normal inspection of the chest CHEST: Yes tenderness (Anterior lower chest wall. No rash.) Resp: COMMON NORMALS: normal respiratory effort, No use of accessory muscles and clear to auscultation bilaterally EFFORT & INSPECTION: Yes abnormal respiratory pattern AUSCULTATION: clear to auscultation bilaterally Cardio: COMMON NORMALS: no JVD, regular rate, regular rhythm and No murmurs present (Cardio) RATE: regular rate and tachycardic RHYTHM: regular rhythm GI: COMMON NORMALS: Soft to palpation and no masses INSPECTION: No abdominal distension AUSCULTATION: Yes normoactive bowel sounds PALPATION: Yes Soft to palpation and Yes Tenderness to palpation present (GI) (Epigastrium, right upper quadrant.) : COMMON NORMALS: Yes no CVA tenderness BLADDER/KIDNEY EXAM: Yes no CVA tenderness Back/Pelvis: COMMON NORMALS: no CVA tenderness, thoracic and lumbar spine normal to inspection, no thoracic nor lumbar tenderness and thoraco-lumbar ROM normal Extremity: COMMON NORMALS: normal to inspection, full ROM, capillary refill normal, no joint enlargement, no calf tenderness and no pedal edema Neuro: COMMON NORMALS: patient oriented x3, moves all extremities, no focal motor deficits and no sensory deficits noted CRANIAL NERVES: Yes CN normal except as noted Course Reevaluation(s): Reevaluation #1: Gallbladder ultrasound is reassuring. We are awaiting her second troponin. Repeat EKG reveals no acute changes other than tachycardia. Reevaluation #2: Patient states she is feeling subjectively improved. Her second troponin shows no change from previous troponin. Given that the patient's symptoms have been present approximately 3 days and continuous in nature I think it is unlikely that this represents ongoing ischemia or ACS. Given the fact that her chest x- ray and gallbladder ultrasound are reassuring I think it is unlikely that this represents other etiologies other than gastritis or other GI pathology. We will add Levsin to see how she responds and if she continues to respond to that I will add that to her current regimen and then have her follow-up with her c linician on an outpatient basis. Reevaluation #3: Patient has what she describes as some epigastric discomfort and when I speak to her in more detail she seems to associate that with her heart rate. She has not taken her flecainide today have advised her to go and take her flecainide and will reevaluate but her repeat resting EKG shows no ischemic abnormalities. She has a sinus tachycardia but otherwise no other concerning findings. Time: 17:49 Additional Reevaluation(s): Patient continues to have her epigastric discomfort. She has not responded to the Carafate and the Protonix. I reviewed her past records and she has had a CT scan as well as an MRI and a CTA of her abdomen within the last 3 months all of which have been unremarkable for any acute or chronic pathology. He also had a myocardial perfusion scan 1 year ago which was very low risk for obstructive coronary artery disease. Vital Signs: Vital signs: Vital Signs Temperature 98.3 F 07/31/21 14:00 Pulse Rate 111 H 07/31/21 17:16 Respiratory Rate 20 H 07/31/21 19:18 Blood Pressure 123/72 07/31/21 17:16 Pulse Oximetry 98 07/31/21 17:16 MDM - Chest Pain Medical Decision Making Patient's had prolonged observation time in the emergency department with flat serial troponins and no acute EKG changes. His other other studies were reassuring while in the emergency department. The patient has a history of chr onic arrhythmia and is apparently scheduled to see job coaching in [place] within the next few weeks. She also has a history of recurrent or chronic abdominal pain which has been evaluated multiple times in the past including CT scan and CTA as well as MRI all unrevealing for any significant or concerning pathology. I think some of the patient's presentation is consistent with chronic abdominal pain of unclear etiology although I am sure there is a gastritis component as well. The patient is currently clinically stable without any evidence of ongoing emergency medical condition. She has been advised to continue all her usual medications. We will provide her with additional an tispasmodics in an attempt to control her subjective symptoms. Medical Records I reviewed the patient's medical records. Lab Data I reviewed the patient's lab results. : 07/31/21 13:45 07/31/21 13:45 Radiology Impressions Gallbladder Ultrasound 07/31/21 14:09 IMPRESSION: No acute findings. Laboratory Results WBC 8.6 10^3/uL (4.0-10.0) 07/31/21 13:45 RBC 5.14 10^6/uL (4.1-5.3) 07/31/21 13:45 Hgb 16.0 g/dL (11.5-15.3) H 07/31/21 13:45 Hct 44.6 % (37.0-47.0) 07/31/21 13:45 MCV 86.8 fl (81-99) 07/31/21 13:45 MCH 31.1 pg (28.0-34.0) 07/31/21 13:45 MCHC 35.9 g/dL (30.0-36.0) 07/31/21 13:45 RDW 11.9 % (12.1-15.1) L 07/31/21 13:45 Plt Count 408 10^3/cmm (130-400) H 07/31/21 13:45 MPV 8.8 fL (7.4-10.4) 07/31/21 13:45 Neut % (Auto) 52.2 % 07/31/21 13:45 Lymph % (Auto) 36.2 % 07/31/21 13:45 Wheeler % (Auto) 9.2 % 07/31/21 13:45 Eos % (Auto) 1.2 % 07/31/21 13:45 Baso % (Auto) 1.0 % 07/31/21 13:45 Neut # (Auto) 4.49 10^3/uL (1.8-7.7) 07/31/21 13:45 Lymph # (Auto) 3.1 10^3/uL (0.8-4.8) 07/31/21 13:45 Wheeler # (Auto) 0.8 10^3/uL (0.2-0.9) 07/31/21 13:45 Eos # (Auto) 0.1 10^3/uL (0.0-0.8) 07/31/21 13:45 Baso # (Auto) 0.1 10^3/uL (0.0-0.1) 07/31/21 13:45 Nucleated RBC % (auto) 0 % 07/31/21 13:45 Nucleated RBCs # 0.0 /100WBC 07/31/21 13:45 Sodium 133 mmol/L (136-145) L 07/31/21 13:45 Potassium 4.4 mmol/L (3.5-5.1) 07/31/21 13:45 Chloride 94 mmol/L (98-107) L 07/31/21 13:45 Carbon Dioxide 26 mmol/L (22-29) 07/31/21 13:45 Anion Gap 17.4 (5-19) 07/31/21 13:45 BUN 11 mg/dL (6-20) 07/31/21 13:45 Creatinine 0.5 mg/dL (0.5-0.9) 07/31/21 13:45 GFR Calculation 132.2 mL/min (90-130) H 07/31/21 13:45 Glucose 86 mg/dL (65-115) 07/31/21 13:45 Calculated Osmolality 275 mOsm/kg (285-295) L 07/31/21 13:45 Calcium 10.7 mg/dL (8.5-10.5) H 07/31/21 13:45 Total Bilirubin 0.5 mg/dL (0.15-1.2) 07/31/21 13:45 AST 35 U/L (0-32) H 07/31/21 13:45 ALT 63 U/L (0-33) H 07/31/21 13:45 Alkaline Phosphatase 85 IU/L (35-105) 07/31/21 13:45 Troponin T Baseline 14 ng/L (0-10) H 07/31/21 13:45 Troponin T 120 Minute 14.21 ng/L (0-10) H 07/31/21 16:11 Delta Troponin T 0.21 ABS# (0-10) 07/31/21 16:11 Troponin T Hi Sens 6Hr 13.65 ng/L (0-10) H 07/31/21 19:55 Troponin T Hi Sens 6Hr Delta -0.35 ng/L (0-12) L 07/31/21 19:55 Total Protein 7.8 g/dL (6.6-8.7) 07/31/21 13:45 Albumin 4.8 g/dL (3.5-5.2) 07/31/21 13:45 Globulin 3.0 g/dL (1.3-4.6) 07/31/21 13:45 EKG Data EKG 1: EKG interpretation time: 14:25 Interpretation: Underlying rhythm is sinus tachycardia 113 beats per minute. She has a normal appearing axis as well as MO QRS and QT intervals. No acute ST-T wave changes noted. Discharge Plan Discharge Patient Disposition: Home Clinical Impression: GERD (gastroesophageal reflux disease), Paroxysmal SVT (supraventricular tachycardia), Abdominal pain, chronic, epigastric Condition: Stable Prescriptions: New Levsin/SL 0.125 mg tablet, sublingual 0.125 mg sublingual TID PRN (Reason: dyspepsia) Qty: 30 0RF No Action glipizide 10 mg tablet extended release 24hr 10 mg PO BID Qty: 60 5RF Rx Instructions: 340 B medication levothyroxine 50 mcg tablet 50 mcg PO QAM Qty: 30 5RF Rx Instructions: 340 B medication metformin 500 mg tablet 1,000 mg PO BID 30 Days Qty: 120 5RF Rx Instructions: 340 B medication ondansetron HCl 4 mg tablet 4 mg PO Q8H PRN (Reason: nausea and vomiting) Qty: 30 1RF Victoza 3-[place] 0.6 mg/0.1 mL (18 mg/3 mL) pen injector 1.8 mg SUBCUT DAILY Qty: 9 5RF metoprolol tartrate 25 mg tablet 25 mg PO BID Qty: 60 6RF flecainide 50 mg tablet 50 mg PO Q12H Qty: 60 3RF (DME) Diabetic Shoes with 3 inserts See Rx Instructions .Route .MEDSUPPLY Qty: 1 0RF Rx Instructions: As directed hydroxyzine HCl 50 mg tablet 50 mg PO Q8H PRN (Reason: anxiety) Qty: 60 0RF gabapentin 300 mg capsule See Rx Instructions .ROUTE .COMPLEX Qty: 240 3RF Rx Instructions: Take 3 caps in a.m. 2 caps at noon and 3 caps at noon (900-600-900 mg)340 B meds mirtazapine 15 mg tablet 15 mg PO BEDTIME Qty: 30 3RF tramadol 50 mg tablet 50 mg PO Q6H PRN (Reason: pain) 30 Days Qty: 120 0RF trazodone 100 mg tablet 100 mg PO BEDTIME 0RF Rx Instructions: 340 B medication sucralfate 100 mg/mL suspension 2 g PO BID 28 Days Qty: 1120 0RF omeprazole 20 mg capsule,delayed release(DR/EC) 20 mg PO BID Qty: 120 1RF Discharge Orders: Discharge ED (Routine); Ordered 07/31/21 Ordered By: Abraham Montanez Referrals: Israel Otero MD [Primary Care Provider] - Discharge Diet: Usual diet Discharge Activity: Resume usual activity Patient Instructions: Abdominal Pain (ED), Opioid Safety Activity Restrictions/Additional Instructions: Take all your usual prescribed medications. We have provided an additional medication to help with some of your abdominal discomfort. Follow-up with your regular doctor in the next 3 to 5 days. If you have worsening or other concerning symptoms you are welcome to return to the emergency department for reevaluation. Coding Level of Care Code ED Commercial Lending Assistant for Esperanza Hernandez Exam Comprehensive
[2021-07-31 14:28] LABS: Basophils # 0.1 10^3/uL (0.0-0.1); Eosinophils # 0.1 10^3/uL (0.0-0.8); Eosinophils % 1.2 %; Hematocrit 44.6 % (37.0-47.0); Lymphocytes # 3.1 10^3/uL (0.8-4.8); Lymphocytes % 36.2 %; Mean Corpuscular HGB Conc 35.9 g/dL (30.0-36.0); Mean Corpuscular Hemoglobin 31.1 pg (28.0-34.0); Mean Corpuscular Volume 86.8 fl (81-99); Mean Platelet Volume 8.8 fL (7.4-10.4); Monocytes # 0.8 10^3/uL (0.2-0.9); Monocytes % 9.2 %; Neutrophils # 4.49 10^3/uL (1.8-7.7); Neutrophils % 52.2 %; Nucleated Red Blood Cells % 0 %; Platelet Count 408 10^3/cmm (130-400); Red Blood Count 5.14 10^6/uL (4.1-5.3); Red Cell Distribution Width 11.9 % (12.1-15.1); White Blood Count 8.6 10^3/uL (4.0-10.0)
[2021-07-31] MEDS: sodium chloride 0.9% 1,000 ML 999 ML IV (14:29)
[2021-07-31] MEDS: ondansetron 2 mg/ML SDV 2 mL 4 MG IVP (14:29)
[2021-07-31] MEDS: morphine 4 mg/mL SDV 1 mL IVP ×2 (14:30→19:18)
[2021-07-31 14:38] LABS: Troponin(5th) Baseline 14 ng/L (0-10)
[2021-07-31 14:41] LABS: Alanine Aminotransferase 63 U/L (0-33); Albumin Level 4.8 g/dL (3.5-5.2); Alkaline Phosphatase 85 IU/L (35-105); Anion Gap 17.4 (5-19); Aspartate Amino Transferase 35 U/L (0-32); Blood Urea Nitrogen 11 mg/dL (6-20); Calcium 10.7 mg/dL (8.5-10.5); Carbon Dioxide 26 mmol/L (22-29); Chloride 94 mmol/L (98-107); Glomerular Filtration Rate 132.2 mL/min (90-130); Glucose 86 mg/dL (65-115); Osmolality Calculated 275 mOsm/kg (285-295); Potassium 4.4 mmol/L (3.5-5.1); Sodium 133 mmol/L (136-145); Total Bilirubin 0.5 mg/dL (0.15-1.2); Total Protein 7.8 g/dL (6.6-8.7)
[2021-07-31 16:42] LABS: Troponin 5 2HR 14.21 ng/L (0-10)
[2021-07-31 16:50] LABS: Troponin 5 2HR Delta 0.21 ABS# (0-10)
--- NOTE | 2021-07-31 17:16 | ECG_ITS ---
[facility] Test Date: 2021-07-31 Pat Name: Mena Cano Department: Room: Gender: Female Hay Farmer: : 1975 Requested By: Abraham Montanez Order Number: [id number] Conway MD: Carlo Gutierrez M.D. Measurements Intervals [place] Rate: P: [place]: QRS: QRSD: T: QT: QTc: Interpretive Statements SINUS TACHYCARDIA Compared to ECG 07/31/2021 14:19:42 NO SIGNIFICANT CHANGES Electronically Signed On 08-01-2021 15:53:47 CDT by Carlo Gutierrez M.D. [id number]
[2021-07-31] MEDS: hyoscyamine ODT 0.125 mg Tablet 0.25 MG PO (17:23)
[2021-07-31] MEDS: sucralfate 1 gm/10 mL Oral Liq UDC PO (18:32)
[2021-07-31] MEDS: pantoprazole 40 mg SDV IVP (18:33)
--- NOTE | 2021-07-31 19:13 | PC.NURSE ---
report received, patient on stretcher, respirations even equal and unlabored. NAD
[2021-07-31 20:19] LABS: Troponin 5 6HR 13.65 ng/L (0-10)
[2021-07-31 20:20] LABS: Troponin 5 6HR Delta -0.35 ng/L (0-12)
--- NOTE | 2021-07-31 21:16 | ECG_ITS ---
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 Measurements Intervals [place] Rate: 114 P: 59 DE: 157 QRS: 22 QRSD: 78 T: 50 QT: 315 QTc: 434 Interpretive Statements SINUS TACHYCARDIA Compared to ECG 07/31/2021 17:44:52 No significant changes Electronically Signed On 08-01-2021 15:53:18 CDT by Carlo Gutierrez M.D. [id number]
== END 2021-07-31 20:42 | disposition home or self-care (01) ==
PROVIDERS: Emergency Provider Emergency Medicine; PCP Family Medicine Adult Medicine
DX: K21.9 Gastro-esophageal reflux disease without esophagitis (principal); I47.1 Supraventricular tachycardia; G89.29 Other chronic pain; R10.13 Epigastric pain; Z79.84 Long term (current) use of oral hypoglycemic drugs; E11.40 Type 2 diabetes mellitus with diabetic neuropathy, unspecified; E78.5 Hyperlipidemia, unspecified; Z86.19 Personal history of other infectious and parasitic diseases; F17.210 Nicotine dependence, cigarettes, uncomplicated
CPT/HCPCS: 36415; 71045; 76705; 80053; 84484; 85025; 93005; 96361; 96374; 96375; 96376; 99284; C9113; J2270; J2405; J7030

== ENCOUNTER → 2021-08-16 11:11 | Day surgery (SDC) | payer MEDICAID, SELFPAY ==
[2021-08-16 11:41] VITALS: BP 142/99; PULSE 120; RESP 18; TEMP 36.1; O2SAT 100
[2021-08-16 11:42] LABS: Hematocrit 46.1 % (37.0-47.0); Hemoglobin 16.5 g/dL (11.5-15.3)
--- NOTE | 2021-08-16 12:30 | PC.NURSE ---
Pt to GI lab for phlebotomy. Hg 16.5 and Hct 46.1. Phlebotomy drawn as ordered. 500 gm removed. Pt tolerated well. BP stable prior to and after draw.
[2021-08-16 12:32] VITALS: BP 129/88; PULSE 125; RESP 18; O2SAT 98
== END ==
PROVIDERS: PCP Family Medicine Adult Medicine; Visit Provider Internal Medicine
DX: Z14.8 Genetic carrier of other disease (principal); E83.19 Other disorders of iron metabolism
CPT/HCPCS: 36415; 85014; 85018; 99195

== ENCOUNTER 2021-08-17 16:23 | Emergency (ER) | payer MEDICAID, SELFPAY ==
[2021-08-17 16:43] VITALS: BP 111/79; PULSE 119; RESP 24; TEMP 36.8; O2SAT 99; BMI 20.9
--- NOTE | 2021-08-17 18:01 | ECG_ITS ---
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 Measurements Intervals [place] Rate: 125 P: 68 FL: 155 QRS: 14 QRSD: 75 T: 74 QT: 298 QTc: 430 Interpretive Statements SINUS TACHYCARDIA NONSPECIFIC T-WAVE ABNORMALITY ABNORMAL RHYTHM ECG Compared to ECG 07/31/2021 17:45:59 T-wave abnormality now present Electronically Signed On 08-18-2021 17:04:16 CDT by Chris Allen M.D. [email or web address]/[id number]
--- NOTE | 2021-08-17 18:01 | XRR_ITS ---
PROCEDURE INFORMATION: Exam: XR Chest Exam date and time: 08/17/2021 6:12 PM Age: 45 years old Clinical indication: Other: Dizziness; Additional info: Inspriational pain, right side TECHNIQUE: Imaging protocol: XR of the chest. Views: 1 view. COMPARISON: CR XR chest 1V portable [id number] 07/31/2021 2:23 PM FINDINGS: Lungs: Unremarkable. No consolidation. Pleural spaces: Unremarkable. No pleural effusion. No pneumothorax. Heart/Mediastinum: Unremarkable. No cardiomegaly. Bones/joints: Unremarkable. XR/XR chest 1V portable [id number] IMPRESSION: No acute findings.
--- NOTE | 2021-08-17 18:02 | ED_ITS ---
HPI - Nausea/Vomiting/Diarrhea General: Chief complaint: Nausea/Vomiting/Diarrhea Stated complaint: vomiting/dizziness when standing/no appetite Time Seen by Provider: 08/17/21 17:58 History of Present Illness: Patient states that she has had nausea and vomiting some diarrhea since yesterday. Said blood sugars been fine. Said that she has a history SVT and sometimes she feels dizzy when she stands up with that. She has not complained about heart racing. It does hurt when she takes a deep breath in her right side she has been have a bit of cough but she thinks she might drink something 1 vomiting. Denies any chest pressure or shortness of breath. Associated nausea: Yes Associated symtoms: Reports chest pain (Inspirational) and nausea; Denies headache(s) Review of Systems Const: Denies: fever(s), chills or body aches Eyes: Denies: eye discomfort ENMT: Denies: throat pain Card: Reports: chest pain (Inspirational) Resp: Reports: pain on inspiration (Right side); Denies: dyspnea GI: Reports: nausea, vomiting and diarrhea; Denies: abdominal pain Skin/Breast: Denies: rash Neuro: Denies: headache(s) Psych: Denies: depression or suicidal ideation PFS ED PFSH: Medical History Anxiety and depression At risk for inadequate oral intake Chest pain Chronic hip pain Chronic low back pain with left-sided sciatica Chronic nausea Dehydration Dehydration, mild Diabetes type 2, uncontrolled Diabetic neuropathy Dyslipidemia Elevated transaminase level GERD (gastroesophageal reflux disease) Has run out of medications Hepatitis C 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, s/p treatment with interferon in ~ 1999 by Eddie History of MRSA infection diabetic wounds History of rheumatoid arthritis Hypothyroidism Insulin dependent diabetes mellitus Ketonuria Marijuana use Nausea Nicotine dependence, cigarettes, uncomplicated JOSE (obstructive sleep apnea) per sleep study 2010, CPAP of 13 recommended at that time, no longer with machine Osteoarthritis involving multiple joints on both sides of body Paroxysmal SVT (supraventricular tachycardia) PTSD (post-traumatic stress disorder) Pyuria Right flank pain, chronic Sinus tachycardia Supraventricular tachycardia (~04/2020) identified during ED visit 04/2020, treated with 6mg adenosine with conversio n to sinus Surgical History History of hysterectomy (~2011) also Kimberly urethral plication History of incision and drainage (~2013) right upper extremity and R lower extremity History of tubal ligation History of umbilical hernia repair (~2011) Family History Father Diabetes Mother Diabetes Grandfather Pacemaker Denies family history of Stroke Social History Smoking and tobacco status: current every day smoker (1 pack every 3-4 days) cigarettes Packs smoked per day: 0.5 Second hand smoke exposure: Yes Alcohol intake: never Marital status: Life Partner Number of children: 2 Number of grandchildren: 0 Current occupational status: unemployed Physical Exam Const: COMMON NORMALS: no acute distress, patient oriented x3 and alert HENMT: COMMON NORMALS: normocephalic and external ears normal HEAD & SCALP: normocephalic EXTERNAL EAR: Yes external ears normal Eye: COMMON NORMALS: EOMs intact bilaterally Neck/C-Spine: COMMON NORMALS: no JVD Chest: OTHER: Pain with palpation right side chest. Resp: COMMON NORMALS: normal respiratory effort and No use of accessory muscles Cardio: COMMON NORMALS: no JVD GI: INSPECTION: Yes normal to inspection Extremity: COMMON NORMALS: normal to inspection and full ROM Neuro: COMMON NORMALS: patient oriented x3 SENSORIUM/ORIENTATION: Yes alert Psych: COMMON NORMALS: mental status grossly normal Skin: COMMON NORMALS: no rashes or lesions noted GENERAL SKIN EXAM: no rashes or lesions noted Course Vital Signs: Vital signs: Vital Signs Temperature 98.3 F 08/17/21 16:43 Pulse Rate 122 H 08/17/21 18:49 Respiratory Rate 20 H 08/17/21 18:12 Blood Pressure 108/67 08/17/21 18:49 Pulse Oximetry 98 08/17/21 18:12 MDM - Nausea/Vomiting/Diarrhea Medical Decision Making Presented with nausea and vomiting. Laboratory studies show that slightly dehydrated and that she definitely has UTI going on. IV antibiotic given prescription provided bag of fluids given patient follow-up primary care provider repeat urine in 1 week. Lab Data : 08/17/21 18:02 08/17/21 20:00 Radiology Impressions Chest X-Ray 08/17/21 18:01 IMPRESSION: No acute findings. Laboratory Results WBC 10.0 10^3/uL (4.0-10.0) 08/17/21 18: RBC 4.86 10^6/uL (4.1-5.3) 08/17/21 18: Hgb 15.2 g/dL (11.5-15.3) 08/17/21 18:02 Hct 42.6 % (37.0-47.0) 08/17/21 18: MCV 87.7 fl (81-99) 08/17/21 18: MCH 31.3 pg (28.0-34.0) 08/17/21 18: MCHC 35.7 g/dL (30.0-36.0) 08/17/21 18: RDW 11.6 % (12.1-15.1) L 08/17/21 18: Plt Count 399 10^3/cmm (130-400) 08/17/21 18: MPV 9.4 fL (7.4-10.4) 08/17/21 18:02 Neut % (Auto) 56.8 % 08/17/21 18:02 Lymph % (Auto) 31.2 % 08/17/21 18:02 [place] % (Auto) 9.9 % 08/17/21 18:02 Eos % (Auto) 1.0 % 08/17/21 18:02 Baso % (Auto) 0.8 % 08/17/21 18:02 Neut # (Auto) 5.70 10^3/uL (1.8-7.7) 08/17/21 18:02 Lymph # (Auto) 3.1 10^3/uL (0.8-4.8) 08/17/21 18:02 [place] # (Auto) 1.0 10^3/uL (0.2-0.9) H 08/17/21 18:02 Eos # (Auto) 0.1 10^3/uL (0.0-0.8) 08/17/21 18:02 Baso # (Auto) 0.1 10^3/uL (0.0-0.1) 08/17/21 18:02 Nucleated RBC % (auto) 0 % 08/17/21 18:02 Nucleated RBCs # 0.0 /100WBC 08/17/21 18:02 Sodium 131 mmol/L (136-145) L 08/17/21 20:00 Potassium 3.9 mmol/L (3.5-5.1) 08/17/21 20:00 Chloride 94 mmol/L (98-107) L 08/17/21 20:00 Carbon Dioxide 24 mmol/L (22-29) 08/17/21 20:00 Anion Gap 16.9 (5-19) 08/17/21 20:00 BUN 21 mg/dL (6-20) H 08/17/21 20:00 Creatinine 0.6 mg/dL (0.5-0.9) 08/17/21 20:00 GFR Calculation 107.2 mL/min (90-130) 08/17/21 20:00 Glucose 88 mg/dL (65-115) 08/17/21 20:00 Calculated Osmolality 274 mOsm/kg (285-295) L 08/17/21 20:00 Calcium 9.3 mg/dL (8.5-10.5) 08/17/21 20:00 Total Bilirubin 0.3 mg/dL (0.15-1.2) 08/17/21 20:00 AST 34 U/L (0-32) H 08/17/21 20:00 ALT 64 U/L (0-33) H 08/17/21 20:00 Alkaline Phosphatase 74 IU/L (35-105) 08/17/21 20:00 Total Protein 6.1 g/dL (6.6-8.7) L 08/17/21 20:00 Albumin 4.0 g/dL (3.5-5.2) 08/17/21 20:00 Globulin 2.1 g/dL (1.3-4.6) 08/17/21 20:00 Lipase 14 U/L (13-60) 08/17/21 20:00 Urine Color Yellow (Yellow) 08/17/21 18:11 Urine Appearance Cloudy (CLEAR) 08/17/21 18:11 Urine pH 6.5 (5-7) 08/17/21 18:[address] [place] 1.030 (1.005-1.030) 08/17/21 18:11 Urine Protein 3+ (Negative) H 08/17/21 18:11 Urine Glucose (UA) 2+ (Normal) H 08/17/21 18:11 Urine Ketones Negative (Negative) 08/17/21 18:11 Urine Blood 2+ (Negative) H 08/17/21 18:11 Urine Nitrate Positive (Negative) H 08/17/21 18:11 Urine Bilirubin 1+ (Negative) H 08/17/21 18:11 Urine Urobilinogen Neg mg/dL (Negative) 08/17/21 18:11 Ur Leukocyte Esterase 2+ (Negative) H 08/17/21 18:11 Urine RBC Too numerous to cnt /hpf (0-2) H 08/17/21 18:11 Urine WBC Too numerous to cnt /hpf (0-5) H 08/17/21 18:11 Ur Squamous Epith Cells 0-4 /hpf (0-5) H 08/17/21 18:11 Amorphous Sediment Not Reportable 08/17/21 18:11 Urine Bacteria 4+ /hpf (NONE) H 08/17/21 18:11 Urine Mucus 2+ /hpf 08/17/21 18:11 EKG Data EKG 1: EKG interpretation date: 08/17/21 EKG interpretation time: 16:54 Computer generated interpretation: Sinus tachycardia ventricular rate 125 bpm pr intervals 155 ms QRS duration 75 ms QT is 298 ms Discharge Plan Discharge Patient Disposition: Home Clinical Impression: UTI (urinary tract infection) Condition: Stable Prescriptions: New cephalexin 500 mg capsule 500 mg PO Q8H 7 Days Qty: 21 0RF No Action glipizide 10 mg tablet extended release 24hr 10 mg PO BID Qty: 60 5RF Rx Instructions: 340 B medication levothyroxine 50 mcg tablet 50 mcg PO QAM Qty: 30 5RF Rx Instructions: 340 B medication metformin 500 mg tablet 1,000 mg PO BID 30 Days Qty: 120 5RF Rx Instructions: 340 B medication ondansetron HCl 4 mg tablet 4 mg PO Q8H PRN (Reason: nausea and vomiting) Qty: 30 1RF Victoza 3-Navneet 0.6 mg/0.1 mL (18 mg/3 mL) pen injector 1.8 mg SUBCUT DAILY Qty: 9 5RF metoprolol tartrate 25 mg tablet 25 mg PO BID Qty: 60 6RF flecainide 50 mg tablet 50 mg PO Q12H Qty: 60 3RF hydroxyzine HCl 50 mg tablet 50 mg PO Q8H PRN (Reason: anxiety) Qty: 60 0RF gabapentin 300 mg capsule See Rx Instructions .ROUTE .COMPLEX Qty: 240 3RF Rx Instructions: Take 3 caps in a.m. 2 caps at noon and 3 caps at noon (900-600-900 mg)340 B meds mirtazapine 15 mg tablet 15 mg PO BEDTIME Qty: 30 3RF tramadol 50 mg tablet 50 mg PO Q6H PRN (Reason: pain) 30 Days Qty: 120 0RF (DME) Diabetic Shoes with 3 inserts See Rx Instructions .Route .MEDSUPPLY Qty: 1 0RF Rx Instructions: As directed trazodone 100 mg tablet 100 mg PO BEDTIME 0RF Rx Instructions: 340 B medication omeprazole 20 mg capsule,delayed release(DR/EC) 20 mg PO BID Qty: 120 1RF hyoscyamine sulfate [Levsin/SL] 0.125 mg tablet, sublingual 0.125 mg sublingual TID PRN (Reason: dyspepsia) Qty: 30 0RF Discharge Orders: Discharge ED (Routine); Ordered 08/17/21 Ordered By: Jules Bowie Referrals: Israel Otero MD [Primary Care Provider] - Discharge Diet: Usual diet Discharge Activity: Increase activity as tolerated Patient Instructions: Urinary Tract Infection in Women (ED) Activity Restrictions/Additional Instructions: Follow-up with medical provider as directed. Take medications as prescribed. Return to the ER or your medical provider if condition worsens. Please read and understand discharge instructions. If any questions ask please. Coding Level of Care Code ED Software Clerk for Esperanza Fwd Exam Comprehensive
[2021-08-17 18:12] VITALS: BP 134/84; PULSE 119; RESP 20; O2SAT 98
[2021-08-17 18:13] LABS: Basophils # 0.1 10^3/uL (0.0-0.1); Basophils % 0.8 %; Eosinophils # 0.1 10^3/uL (0.0-0.8); Hematocrit 42.6 % (37.0-47.0); Hemoglobin 15.2 g/dL (11.5-15.3); Lymphocytes # 3.1 10^3/uL (0.8-4.8); Lymphocytes % 31.2 %; Mean Corpuscular HGB Conc 35.7 g/dL (30.0-36.0); Mean Corpuscular Hemoglobin 31.3 pg (28.0-34.0); Mean Corpuscular Volume 87.7 fl (81-99); Mean Platelet Volume 9.4 fL (7.4-10.4); Monocytes % 9.9 %; Neutrophils % 56.8 %; Nucleated Red Blood Cells % 0 %; Platelet Count 399 10^3/cmm (130-400); Red Blood Count 4.86 10^6/uL (4.1-5.3); Red Cell Distribution Width 11.6 % (12.1-15.1)
[2021-08-17 18:49] VITALS: BP 108/67; BP 88/67; BP 92/71; PULSE 120; PULSE 122; PULSE 123
[2021-08-17] MEDS: sodium chloride 0.9% 1,000 ML 999 ML IV (18:55)
[2021-08-17 18:56] LABS: Add Urine Microscopic? YES; Bilirubin Urine 1+ (Negative); Blood Urine 2+ (Negative); Glucose Urine UA 2+ (Normal); Ketones Urine Negative (Negative); Leukocyte Esterase Urine 2+ (Negative); Nitrate Urine Positive (Negative); Protein Urine 3+ (Negative); Urine Appearance Cloudy (CLEAR); Urine Color Yellow (Yellow); Urobilinogen Urine Neg (Negative); pH Urine 6.5 (5-7)
[2021-08-17 18:57] LABS: Add Urine Culture? Yes; Bacteria Urine 4+ /hpf; Mucus Urine 2+ /hpf; RBC Urine TOO NUMEROUS TO CNT /hpf (0-2); Squamous Epithelial Cell Urine 0-4 /hpf (0-5); WBC Urine TOO NUMEROUS TO CNT /hpf (0-5)
[2021-08-17] MEDS: ondansetron 2 mg/ML SDV 2 mL 4 MG IVP (19:52)
[2021-08-17] MEDS: cefTRIAXone 1,000 MG in sodium chloride 0.9% (plus) 50 ML 100 MG IV (19:52)
[2021-08-17] MEDS: ketorolac 30 mg/mL INJ IVP (19:52)
[2021-08-17 20:26] LABS: Alanine Aminotransferase 64 U/L (0-33); Alkaline Phosphatase 74 IU/L (35-105); Aspartate Amino Transferase 34 U/L (0-32); Blood Urea Nitrogen 21 mg/dL (6-20); Calcium 9.3 mg/dL (8.5-10.5); Carbon Dioxide 24 mmol/L (22-29); Chloride 94 mmol/L (98-107); Globulin 2.1 g/dL (1.3-4.6); Glomerular Filtration Rate 107.2 mL/min (90-130); Glucose 88 mg/dL (65-115); Lipase 14 U/L (13-60); Osmolality Calculated 274 mOsm/kg (285-295); Sodium 131 mmol/L (136-145); Total Bilirubin 0.3 mg/dL (0.15-1.2); Total Protein 6.1 g/dL (6.6-8.7)
[2021-08-17 20:29] LABS: Anion Gap 16.9 (5-19); Potassium 3.9 mmol/L (3.5-5.1)
[2021-08-17 20:54] VITALS: BP 124/75; PULSE 98; RESP 18; TEMP 36.8; O2SAT 98
== END 2021-08-17 20:57 | disposition home or self-care (01) ==
PROVIDERS: Emergency Provider Nurse Practitioner Family; PCP Family Medicine Adult Medicine
DX: N39.0 Urinary tract infection, site not specified (principal); E86.0 Dehydration; E11.42 Type 2 diabetes mellitus with diabetic polyneuropathy; F17.210 Nicotine dependence, cigarettes, uncomplicated; I47.1 Supraventricular tachycardia; Z79.84 Long term (current) use of oral hypoglycemic drugs
CPT/HCPCS: 71045; 80053; 81001; 83690; 85025; 87077; 87086; 87186; 93005; 96365; 96375; 99284; J0696; J1885; J2405; J7030

== ENCOUNTER → 2021-08-23 13:49 | Outpatient (BNVA) | payer MEDICAID, SELFPAY | PROVIDERS: PCP Family Medicine Adult Medicine; Visit Provider Internal Medicine | DX: E83.19 Other disorders of iron metabolism (principal); Z14.8 Genetic carrier of other disease; R74.01 Elevation of levels of liver transaminase levels | CPT/HCPCS: 82728; 83550 ==

== ENCOUNTER → 2021-08-30 12:51 | Outpatient (BNVA) | payer MEDICAID, SELFPAY | PROVIDERS: PCP Family Medicine Adult Medicine; Visit Provider Podiatrist Foot & Ankle Surgery | DX: S90.212A Contusion of left great toe with damage to nail, initial encounter (principal); M21.611 Bunion of right foot; M21.612 Bunion of left foot; F17.210 Nicotine dependence, cigarettes, uncomplicated; X58.XXXA Exposure to other specified factors, initial encounter; S90.211A Contusion of right great toe with damage to nail, initial encounter; E11.42 Type 2 diabetes mellitus with diabetic polyneuropathy | CPT/HCPCS: 99213; 99214 ==

== ENCOUNTER 2021-09-06 13:15 | Outpatient (CLI) | payer MEDICAID, SELFPAY ==
--- NOTE | 2021-09-06 14:30 | CT_ITS ---
WS: [id number] CT ABDOMEN AND PELVIS WITH CONTRAST HISTORY: Mild hepatomegaly with mild diffuse fatty infiltration. TECHNIQUE: Imaging performed of the abdomen and pelvis with IV contrast. Single phase imaging of the abdomen. Coronal and sagittal reformats are submitted. All CT scans at [facility] use at [address] one of these dose optimization techniques: automated exposure control; mA and/or kV adjustment per patient size (includes targeted exams where dose is matched to clinical indication); or iterative re construction. IV CONTRAST: Omnipaque 300; 95 mL IV. Oral contrast: Yes. DLP: 921.08 mGy.cm COMPARISON: 05/08/2021 Lower thorax: Lung bases are clear. Heart is normal size. No hiatal hernia. Liver/biliary system: Moderately enlarged liver extends across the midline and extends over a length of 17.5 cm. Long-term stability of an 11 mm cyst in the RIGHT lobe of the liver. There are areas of h epatic steatosis along the falciform ligament and adjacent to the gallbladder. Portal vein is normall y enhancing. Hepatic granuloma in the posterior liver near the IVC. Gallbladder: Normal. No gallstones or wall thickening. No pericholecystic fluid. Pancreas: Normal size pancreas and pancreatic duct. No adjacent inflammation. Spleen: Normal size with numerous granulomata. Adrenal glands: Normal. Right kidney: Normal. Left kidney: Normal. Aorta: Mild atherosclerosis with no aneurysm. Normal enhancement of the proximal mesenteric veins. Lymphadenopathy: None. Free fluid: None. GI tract: Marked distention of the stomach. Heterogeneous material within the stomach. There is oral contrast but additional densities within the stomach. There is also mild dilatation of the duodenal C -loop and mild wall thickening. There is moderate edema in the third portion of the duodenum. No smal l bowel dilatation. Moderate diffuse constipation throughout the colon. No obstruction. The appendix is normal. Increased fecal material towards the rectum. Abdominal wall: Unremarkable abdominal wall. No hernia. Pelvis: Urinary bladder is well distended. There is asymmetric thickening of the bladder wall but thi s was similar to the prior study of 05/08/2021 and also 03/09/2021 with improvement. Bones: Moderate LEFT curvature lumbar spine. Advanced degenerative disc disease L4-5 and L5-S1. CT/CT abdomen pelvis w con* [id number] IMPRESSION: 1. Distended stomach with heterogeneous products in the lumen and dilatation o f the duodenum with a small amount of submucosal edema in the third portion. Ma y be due to partial outlet obstruction from ulcer or gastroparesis. 2. Asymmetric bladder wall thickening improved since 03/09/2021 persists. May be due to chronic cystitis. 3. Normal appendix. 4. Stable hepatic cysts. 5. No free fluid or adenopathy. 6. Diffuse constipation.
[2021-09-06] MEDS: iohexol 350 mg/mL 100 mL Btl IV (14:37)
[2021-09-06] MEDS: iohexol 300 mg/mL 50 mL Btl PO (14:37)
== END 2021-09-06 13:16 | disposition home or self-care (01) ==
LOC: RAD 13:16
PROVIDERS: PCP Family Medicine Adult Medicine; Visit Provider Family Medicine Adult Medicine
DX: K76.89 Other specified diseases of liver (principal); K59.00 Constipation, unspecified; K76.0 Fatty (change of) liver, not elsewhere classified
CPT/HCPCS: 74177

== ENCOUNTER → 2021-09-08 11:23 | Outpatient (BNVA) | payer MEDICAID, SELFPAY | PROVIDERS: PCP Family Medicine Adult Medicine; Visit Provider Family Medicine Adult Medicine | DX: E11.65 Type 2 diabetes mellitus with hyperglycemia (principal); F41.9 Anxiety disorder, unspecified; F32.A Depression, unspecified; M79.7 Fibromyalgia; R10.9 Unspecified abdominal pain; G89.29 Other chronic pain; I47.1 Supraventricular tachycardia | CPT/HCPCS: 83036 ==

== ENCOUNTER 2021-09-20 12:06 | Outpatient (CLI) | payer MEDICAID, SELFPAY ==
--- NOTE | 2021-09-20 12:00 | USCV_ITS ---
Jerome Mena Age: 46 Gender: F : 1975 Exam Date: 09/20/2021 Ordering Phys: Sam Nieves DPM Technologist: Cheng Andrews [place] [facility] [place]: [place] pain RIGHT LEFT Brachial 112.00 mmHg Brachial 116.00 mmHg Pressure (mmHg) Waveform Pressure (mmHg) Waveform 130.00 Above Knee 118.00 121.00 Below Knee 132.00 134.00 RESIDENT CARE ASSISTANT 132.00 116.00 DPA 123.00 1.00 Ankle/Brachial Index 1.14 77.00 Pre-Exercise Toe Pressure 88.00 Pre-Exercise Toe/Brachial Index 0.76 0.66 FINDINGS Normal resting ABIs bilaterally Normal PVR waveforms Minimally diminished resting TBI on the right side Normal resting TBI on the left side CONCLUSIONS Possible mild PAD on the right side, involving distal vessels No significant arterial obstruction on the left side. Dr Ba Cyr MD [facility] (Electronically Signed) Final Date: 20 Sep 2021 17:31 S
== END 2021-09-20 12:07 | disposition home or self-care (01) ==
LOC: RAD 12:06
PROVIDERS: PCP Family Medicine Adult Medicine; Visit Provider Podiatrist Foot & Ankle Surgery
DX: R09.89 Other specified symptoms and signs involving the circulatory and respiratory systems (principal); R74.01 Elevation of levels of liver transaminase levels
CPT/HCPCS: 80053; 93923

== ENCOUNTER 2021-10-06 07:37 | Outpatient (CLI) | payer MEDICAID, SELFPAY ==
--- NOTE | 2021-10-06 07:46 | MR_ITS ---
WS: [id number] MRI LUMBAR SPINE NONCONTRAST TECHNIQUE: Sagittal T1, T2 and STIR imaging. Axial T1 and T2 imaging. CLINICAL INFORMATION: M48.062 - Spinal stenosis, lumbar region with neurogenic ... COMPARISON: None. FINDINGS: Lumbar scoliosis convex LEFT. No acute compression fractures. Mild disc bulging throughout the lumbar spine. Endplate degenerative changes at L2-L3 with degenerative endplate edema. Incidental hemangiom a L4 vertebral body. L1-L2: Mild disc bulging with impingement RIGHT subarticular recess and traversing RIGHT L2 nerve francisca t. Moderate to severe RIGHT foraminal narrowing with impingement on the exiting RIGHT L1 nerve root. LEFT foramen is patent. Mild facet arthropathy. L2-L3: Slight retrolisthesis. Mild disc bulging with narrowing of the RIGHT greater than LEFT subarti cular recess. Mild facet arthropathy. Moderate to severe RIGHT foraminal narrowing. LEFT foramen is p atent. Mild facet arthropathy. Mild central canal stenosis. L3-L4: Mild disc bulging with mild central canal stenosis. Slight impingement traversing LEFT greater than RIGHT L4 nerve roots. Mild LEFT greater than RIGHT foraminal narrowing. L4-L5: Mild disc osteophyte complex with endplate ridging. Impingement traversing LEFT L5 nerve root in the subarticular recess. Mild central canal stenosis. Severe LEFT foraminal narrowing. Mild RIGHT foraminal narrowing. Moderate facet arthropathy. L5-S1: Mild disc bulging with osteophytic ridging. Severe LEFT foraminal narrowing. Impingement on th e LEFT S1 nerve root in the subarticular recess. Mild RIGHT foraminal narrowing. Moderate facet arthr opathy. Visualized pelvic bony structures: Normal. Paravertebral soft tissues: Normal. MR/MR lumbar spine wo con* [id number] IMPRESSION: 1. Lumbar scoliosis convex LEFT. 2. Mild central canal stenosis L3-L4 and L4-L5. 3. RIGHT proximal foraminal protrusion L1-L2 with moderate to severe RIGHT pro ximal foraminal narrowing and impingement on the exiting RIGHT L1 nerve root. 4. Moderate to severe RIGHT L2-L3 foraminal narrowing impinges the exiting RIG HT L2 nerve root. 5. Severe LEFT L4-L5 and LEFT L5-S1 foraminal narrowing impinges the exiting L EFT L4 and L5 nerve roots respectively. 6. Disc bulging L5-S1 impinges the traversing LEFT S1 nerve root in the subart icular recess. 7. Moderate to advanced arthropathy L5-S1.
== END 2021-10-06 07:38 | disposition home or self-care (01) ==
LOC: RAD 07:40
PROVIDERS: PCP Family Medicine Adult Medicine; Visit Provider Anesthesiology
DX: M48.062 Spinal stenosis, lumbar region with neurogenic claudication (principal)
CPT/HCPCS: 72148

== ENCOUNTER → 2021-11-10 08:02 | Outpatient (BNVA) | payer MEDICAID, SELFPAY | PROVIDERS: PCP Family Medicine Adult Medicine; Visit Provider Podiatrist Foot & Ankle Surgery | DX: L60.3 Nail dystrophy (principal); M79.671 Pain in right foot; M21.611 Bunion of right foot; M21.612 Bunion of left foot; E11.42 Type 2 diabetes mellitus with diabetic polyneuropathy; Z79.84 Long term (current) use of oral hypoglycemic drugs; M79.672 Pain in left foot | CPT/HCPCS: 99213; 99214 ==

== ENCOUNTER → 2021-11-25 12:42 | Outpatient (BNVA) | payer MEDICAID, SELFPAY | PROVIDERS: PCP Family Medicine Adult Medicine; Visit Provider Surgery | DX: M41.50 Other secondary scoliosis, site unspecified (principal); M54.42 Lumbago with sciatica, left side; R15.9 Full incontinence of feces; K21.9 Gastro-esophageal reflux disease without esophagitis; R11.2 Nausea with vomiting, unspecified; E11.43 Type 2 diabetes mellitus with diabetic autonomic (poly)neuropathy; K31.84 Gastroparesis | CPT/HCPCS: 72020; 72100; 99203; 99204 ==

== ENCOUNTER 2021-12-02 05:48 | Day surgery (SDC) | payer MEDICAID, SELFPAY ==
[2021-11-30 16:24] VITALS: BMI 22.1
[2021-12-02 06:22] VITALS: BP 109/74; PULSE 87; RESP 16; TEMP 36.3; O2SAT 99
[2021-12-02] MEDS: sodium chloride 0.9% 1,000 ML 30 ML IV (06:25)
--- NOTE | 2021-12-02 06:33 | W.PM.OPSUD ---
Surgery/Procedure H&P Update DATE OF PROCEDURE: December 02, 2021 DATE H&P PERFORMED: 11/25/21 H&P UPDATE INFORMATION: I have reviewed H&P completed within last 30 days, I have examined patient prior to procedure and No changes to prior documentation PREOP DIAGNOSIS: Nausea and vomiting/fecal incontinence PRIMARY INDICATION FOR PROCEDURE: The same PLANNED PROCEDURE: Operation Date: 12/02/21 07:00 Proposed Procedures p 29120 EGD [id number] Colon R15.9,K21.9(Not Applicable) - Sree Escalera MD s .(Not Applicable) - Sree Escalera MD
--- NOTE | 2021-12-02 06:46 | ANES.PREANE2 ---
Pre-Anesthetic Assessment Height/Weight: Height 1.6 m Weight 56.699 kg Temp Pulse Resp BP Pulse Ox 97.3 F L 87 16 109/74 99 12/02/21 06:22 12/02/21 06:22 12/02/21 06:22 12/02/21 06:22 12/02/21 06:22 Preop Diagnosis: Nausea and vomiting/fecal incontinence Operation Date: 12/02/21 07:00 Proposed Procedures p 19704 EGD 44213 Colon R15.9,K21.9(Not Applicable) - Sree Escalera MD s .(Not Applicable) - Sree Escalera MD Familial anesthetic complications: none Last intake: Intake Last Liquid Date 12/01/21 Last Liquid Time 21:00 Last Solid Date 11/30/21 Last Solid Time 20:00 Social Tobacco (CBD) Airway Submandibular: within normal limits Cervical ROM: within normal limits Mallampati: Class II Dentition: false Pulmonary Asthma (Emphysema ) and Sleep Apnea CV/HEM Arrythmia (SVT ablation october 2021) None reported Hepatic History of Hep C. GI Gastroesophageal Reflux Disease Gastroparesis patient denies any issues this morning. Metabolic Diabetes Mellitus, Hyperlipidemia and Thyroid Disease Musc/skel Lower Back Pain and Scoliosis cane use intermittent Neuropsych Anxiety and Depression Anesthetic Plan ASA status: 3 Anesthesia: MAC Medications/Allergies Home Medications Medication Instructions Recorded Confirmed Last Taken Type glipizide 10 mg tablet, extended 10 mg PO BID #60 tab 05/17/21 12/02/21 12/01/21 Rx release 24 hr levothyroxine 50 mcg tablet 50 mcg PO QAM #30 tab 05/17/21 12/02/21 12/01/21 Rx metformin 500 mg tablet 1,000 mg PO BID 30 Days #120 tab 05/18/21 12/02/21 12/01/21 Rx liraglutide 0.6 mg/0.1 mL (18 mg/3 1.8 mg (0.3 mL) SUBCUT DAILY #9 ml 06/30/21 12/02/21 11/30/21 Rx mL) subcutaneous pen injector (Victoza 3-Navneet) trazodone 100 mg tablet 100 mg PO BEDTIME 07/10/21 12/02/21 12/01/21 History gabapentin 300 mg capsule See Rx Instructions .ROUTE 07/28/21 12/02/2122 Rx .COMPLEX #240 cap mirtazapine 15 mg tablet 15 mg PO BEDTIME #30 tab 07/28/21 12/02/21 12/01/21 Rx Diabetic Shoes with 3 inserts #1 ea 08/12/21 12/02/21 12/01/21 Rx lancets 30 gauge (OneTouch Delica #100 ea 08/18/21 12/02/21 12/01/21 Rx Plus Lancet) hyoscyamine sulfate 0.125 mg 0.125 mg SUBLINGUAL TID PRN 30 09/01/21 12/02/21 Unknown Rx sublingual tablet (Levsin/SL) Days #30 tab buprenorphine 8 mg-naloxone 2 mg 0.5 film BUCCAL TID ea 09/08/21 12/02/21 12/01/21 History sublingual film pen needle, diabetic 32 gauge x #50 ea 09/23/21 12/02/21 12/01/21 Rx 5/32 (1st Tier Unifine Pentips) clonazepam 0.5 mg tablet 0.25 mg PO DAILY 30 Days #45 tab 10/19/21 12/02/21 1 Week Ago Rx ~11/25/21 ondansetron HCl 4 mg tablet 4 mg PO Q8H PRN #30 tab 11/12/21 12/02/21 12/01/21 Rx buspirone 5 mg tablet 5 mg PO TID #90 tab 11/30/21 12/02/21 12/01/21 Rx hydroxyzine HCl 50 mg tablet 50 mg PO DAILY 11/30/21 12/02/21 12/01/21 History omeprazole 20 mg capsule,delayed 20 mg PO DAILY 11/30/21 12/02/21 12/01/21 History release Allergies Allergy/AdvReac Type Severity Reaction Status Date / Time amoxicillin Allergy Unknown Verified 12/02/21 06:14 Current Medications Generic Name Dose Route Start Last Admin Trade Name Freq PRN Reason Stop Dose Admin Sodium Chloride 1,000 mls @ 30 mls/hr 12/02/21 06:00 12/02/21 06:25 Sodium Chloride 0.9% IV 12/03/21 05:59 30 mls/hr .Q24H VARUN Administration PFSH Anesthesia Medical History Anxiety and depression Chronic hip pain Chronic low back pain with left-sided sciatica Complete incontinence of feces Dehydration, mild Diabetes type 2, uncontrolled Diabetic neuropathy Dyslipidemia Elevated transaminase level GERD (gastroesophageal reflux disease) Hepatitis C 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, s/p treatment with interferon in ~ 1999 by Eddie History of rheumatoid arthritis Hypothyroidism Insulin dependent diabetes mellitus Marijuana use Nicotine dependence, cigarettes, uncomplicated JOSE (obstructive sleep apnea) per sleep study 2010, CPAP of 13 recommended at that time, no longer with machine Osteoarthritis involving multiple joints on both sides of body Paroxysmal SVT (supraventricular tachycardia) PTSD (post-traumatic stress disorder) Right flank pain, chronic Scoliosis associated with other condition Supraventricular tachycardia (~04/2020) identified during ED visit 04/2020, treated with 6mg adenosine with conversion to sinus Surgical History History of hysterectomy (~2011) also Kimberly urethral plication History of incision and drainage (~2013) right upper extremity and R lower extremity History of tubal ligation History of umbilical hernia repair (~2011) Family History Father Diabetes Mother Diabetes Grandfather Pacemaker Denies family history of Stroke Social History Smoking and tobacco status: current every day smoker cigarettes Packs smoked per day: 0.5 Second hand smoke exposure: Yes Alcohol intake: never Marital status: Life Partner Number of children: 2 Number of grandchildren: 0 Current occupational status: unemployed Data Anesthesia Cardiac Studies: Sestamibi Stress Test (Cardiology) 07/06/20
[2021-12-02 07:22] VITALS: BP 84/56; PULSE 74; RESP 14; TEMP 36.2; O2SAT 97
[2021-12-02 07:27] VITALS: BP 88/56; PULSE 75; RESP 16; O2SAT 96
[2021-12-02 07:39] VITALS: BP 113/74; PULSE 79; RESP 18; O2SAT 98
--- NOTE | 2021-12-02 14:44 | ANE.PACU2 ---
Inpatient post-anesthesia follow up: Airway intact: Yes Vital signs: Temperature 97.2 F Pulse Rate 79 Respiratory Rate 18 Blood Pressure 113/74 Pulse Oximetry 98 Oxygen Delivery Me thod Room Air Oxygen Flow Rate Fraction of Inspir ed Oxygen Hydration adequate: Yes Nausea and vomiting: No Pain level: 1 Mental status: Baseline
== END 2021-12-02 07:52 | disposition home or self-care (01) ==
PROVIDERS: PCP Family Medicine Adult Medicine; Visit Provider Surgery
PROC: 0DJ08ZZ Inspection of Upper Intestinal Tract, Via Natural or Artificial Opening Endoscopic (ICD-10-PCS; CPT 43235; principal; 2021-12-02 07:00)
PROC: 0DJD8ZZ Inspection of Lower Intestinal Tract, Via Natural or Artificial Opening Endoscopic (ICD-10-PCS; CPT 45378; 2021-12-02 07:00)
DX: R15.9 Full incontinence of feces (principal); K21.9 Gastro-esophageal reflux disease without esophagitis; K29.50 Unspecified chronic gastritis without bleeding; B96.81 Helicobacter pylori [H. pylori] as the cause of diseases classified elsewhere; J43.9 Emphysema, unspecified; G47.30 Sleep apnea, unspecified; Z86.19 Personal history of other infectious and parasitic diseases; E11.40 Type 2 diabetes mellitus with diabetic neuropathy, unspecified; E78.5 Hyperlipidemia, unspecified; F41.9 Anxiety disorder, unspecified; F32.9 Major depressive disorder, single episode, unspecified; Z79.84 Long term (current) use of oral hypoglycemic drugs; E03.9 Hypothyroidism, unspecified; F17.210 Nicotine dependence, cigarettes, uncomplicated
CPT/HCPCS: 43239; 45378; 82274; 83630; 87493; 87506; 88305; 88342; J2704; J7030

== ENCOUNTER → 2021-12-13 14:09 | Outpatient (BNVA) | payer MEDICAID, SELFPAY | PROVIDERS: PCP Family Medicine Adult Medicine; Visit Provider Podiatrist Foot & Ankle Surgery | DX: B35.3 Tinea pedis (principal); L60.3 Nail dystrophy; M79.671 Pain in right foot; M79.672 Pain in left foot; M21.611 Bunion of right foot; M21.612 Bunion of left foot; E11.42 Type 2 diabetes mellitus with diabetic polyneuropathy | CPT/HCPCS: 99213; 99214 ==

== ENCOUNTER → 2021-12-24 08:31 | Day surgery (SDC) | payer MEDICAID, SELFPAY | LOC: OPS 01-11 17:25 → RT 01-19 07:44 → OPS 01-19 07:46 | PROVIDERS: PCP Family Medicine Adult Medicine; Visit Provider Orthopaedic Surgery | DX: Z01.818 Encounter for other preprocedural examination (principal) | CPT/HCPCS: 93005 ==

== ENCOUNTER 2022-01-03 09:49 | Day surgery (SDC) | payer MEDICAID, SELFPAY ==
[2021-12-24 08:18] VITALS: BMI 22.1
--- NOTE | 2021-12-24 08:31 | ECG_ITS ---
[facility] Test Date: 2021-12-24 Pat Name: Mena Cano Department: Room: Gender: Female Database Designer: : 1975 Requested By: Monique España Order Number: [id number] Zoraida MD: Josie Roth M.D. Measurements Intervals [place] Rate: 92 P: 51 HI: 157 QRS: 3 QRSD: 74 T: 24 QT: 357 QTc: 442 Interpretive Statements SINUS RHYTHM POSSIBLE ANTERIOR MYOCARDIAL INFARCTION , PROBABLY OLD [30 ms Q WAVE IN V3/V4, OR R < 0.2 mV IN V4] Compared to ECG 08/17/2021 16:53:43 Myocardial infarct finding now present Sinus tachycardia no longer present T-wave abnormality no longer present Electronically Signed On 12-24-2021 12:50:51 CDT by Josie Roth M.D. [id number]
[2021-12-24 08:56] LABS: Basophils # 0.1 10^3/uL (0.0-0.1); Basophils % 1.4 %; Eosinophils # 0.4 10^3/uL (0.0-0.8); Eosinophils % 5.8 %; Hematocrit 39.7 % (37.0-47.0); Hemoglobin 13.3 g/dL (11.5-15.3); Lymphocytes # 2.1 10^3/uL (0.8-4.8); Lymphocytes % 29.9 %; Mean Corpuscular HGB Conc 33.5 g/dL (30.0-36.0); Mean Corpuscular Hemoglobin 28.5 pg (28.0-34.0); Mean Corpuscular Volume 85.2 fl (81-99); Mean Platelet Volume 9.7 fL (7.4-10.4); Monocytes # 0.8 10^3/uL (0.2-0.9); Monocytes % 11.7 %; Neutrophils # 3.54 10^3/uL (1.8-7.7); Neutrophils % 51.1 %; Nucleated Red Blood Cells % 0 %; Platelet Count 306 10^3/cmm (130-400); Red Blood Count 4.66 10^6/uL (4.1-5.3); Red Cell Distribution Width 13.2 % (12.1-15.1); White Blood Count 6.9 10^3/uL (4.0-10.0)
[2021-12-24 09:19] LABS: Anion Gap 15.2 (5-19); Blood Urea Nitrogen 9 mg/dL (6-20); Calcium 9.4 mg/dL (8.5-10.5); Carbon Dioxide 27 mmol/L (22-29); Chloride 96 mmol/L (98-107); Glomerular Filtration Rate 106.7 mL/min (90-130); Glucose 420 mg/dL (65-115); Osmolality Calculated 295 mOsm/kg (285-295); Potassium 4.2 mmol/L (3.5-5.1); Sodium 134 mmol/L (136-145)
--- NOTE | 2021-12-24 14:02 | P.ANESASSM_ITS ---
Pre-Anesthetic Assessment Height/Weight: Height 1.6 m Weight 56.699 kg Preop Diagnosis: Facet arthropathy Operation Date: 01/03/22 12:00 Proposed Procedures p Lumbar Spine Decompression L4/5 L5/S1 76898/71068 M54.42(Not Applicable) - Darwin Grey, Familial anesthetic complications: None Was Beta Lorie taken within 24 hours: N/A Was Clonidine taken within 24 hours: N/A Social Tobacco and No alcohol Exam alert, oriented x 3, clear to auscultation bilaterally and regular rate & rhythm Airway Submandibular: within normal limits Cervical ROM: within normal limits Mallampati: Class II Dentition: false Pulmonary Chronic Obstructive Pulmonary Disease and Sleep Apnea (Does not use CPAP) CV/HEM Arrythmia (Hx of SVT s/p ablation November 2021) METS > 4 EKG 12/24/21 ?? ? Interpretive Statements SINUS RHYTHM POSSIBLE ANTERIOR MYOCARDIAL INFARCTION , PROBABLY OLD [30 ms Q WAVE IN V3/V4, OR R < 0.2 mV IN V4] Compared to ECG 08/17/2021 16:53:43 Myocardial infarct finding now present Sinus tachycardia no longer present T-wave abnormality no longer present Electronically Signed On 12-24-2021 12:50:51 CDT by Josie Roth M.D. [email or web address] Stress Test 06/2020 EXERCISE: After Lexiscan injection, no ST-T changes suggestive of ischemic noted. No arrhythmia noted. 1.? EKG not suggestive of ischemia 2.? Lexiscan injection unremarkable. 3.? Perfusion scan will be documented separately. Hyponatremia Hepatic Hepatitis Elevated transaminase Hemochromatosis GI Gastroesophageal Reflux Disease Chronic nausea vomiting, uses ondansetron Gastritis Metabolic Diabetes Mellitus [facility] [place] [facility] Fibromyalgia, Lower Back Pain, Osteoarthritis/DJD and Rheumatoid Arthritis Neuropsych Anxiety, Depression and Neuropathy (Tingling in feet and hands) Insomnia PTSD Medications/Allergies Home Medications Medication Instructions Recorded Confirmed Last Taken Type metformin 500 mg tablet 1,000 mg PO BID Diabetes 30 days 05/18/21 12/24/21 12/01/21 Rx #120 tabs liraglutide 0.6 mg/0.1 mL (18 mg/3 1.8 mg (0.3 mL) SUBCUT DAILY #9 mL 06/30/21 12/24/21 11/30/21 Rx mL) subcutaneous pen injector (Shangby 3-Navneet) Diabetic Shoes with 3 inserts #1 ea 08/12/21 12/13/21 12/01/21 Rx lancets 30 gauge (Wallace Gupta #100 ea 08/18/21 12/13/21 12/01/21 Rx Plus Lancet) hyoscyamine sulfate 0.125 mg 0.125 mg sublingual TID PRN 09/01/21 12/24/21 Unknown Rx sublingual tablet (Levsin/SL) dyspepsia 30 days #30 tabs buprenorphine 8 mg-naloxone 2 mg 0.5 film buccal TID 09/08/21 12/24/21 12/01/21 History sublingual film pen needle, diabetic 32 gauge x #50 ea 09/23/21 12/13/21 12/01/21 Rx /32 (1st Tier Unifine Pentips) clonazepam 0.5 mg tablet 0.25 mg PO DAILY Panic attacks 30 10/19/21 12/24/21 1 Week Ago Rx days #45 tabs ~11/25/21 buspirone 5 mg tablet 5 mg PO TID anxiety #90 tabs 11/30/21 12/24/21 12/01/21 Rx omeprazole 20 mg capsule,delayed 20 mg PO DAILY 11/30/21 12/24/21 12/01/21 History release gabapentin 300 mg capsule See Rx Instructions .Route 12/07/21 12/24/21 Unknown Rx .COMPLEX #240 caps levothyroxine 50 mcg tablet See Rx Instructions .Route 12/07/21 12/24/21 Unknown Rx .COMPLEX #30 tabs glipizide 10 mg tablet, extended 10 mg PO BID diabetes #60 tabs 12/08/21 12/24/21 Unknown Rx release 24 hr hydroxyzine HCl 50 mg tablet 50 mg PO Q8H PRN itching #90 tabs 12/08/21 12/24/21 Unknown Rx mirtazapine 30 mg tablet 30 mg PO .[facility] & 12/08/21 12/24/21 Unknown Rx sleep #30 tabs zolpidem 10 mg tablet (Ambien) 10 mg PO .q Insomnia 30 days #30 12/08/21 12/24/21 Unknown Rx tabs ondansetron HCl 4 mg tablet See Rx Instructions .Route 12/09/21 12/24/21 Unknown Rx .COMPLEX #30 tabs Allergies Allergy/AdvReac Type Severity Reaction Status Date / Time amoxicillin Allergy Unknown Verified 12/17/21 08:25 [facility] Anesthesia Medical History Anxiety and depression Chronic hip pain Chronic low back pain with left-sided sciatica Chronic pruritus Dehydration, mild Diabetes type 2, uncontrolled Diabetic neuropathy Dyslipidemia Elevated transaminase level GERD (gastroesophageal reflux disease) History of rheumatoid arthritis Hx of hepatitis C treatment with Dr. Morgan ~1999 Hypothyroidism Insomnia disorder, with other sleep disorder, recurrent Insulin dependent diabetes mellitus Marijuana use Nicotine dependence, cigarettes, uncomplicated JOSE (obstructive sleep apnea) per sleep study 2010, CPAP of 13 recommended at that time, no longer with machine Osteoarthritis involving multiple joints on both sides of body Paroxysmal SVT (supraventricular tachycardia) PTSD (post-traumatic stress disorder) Right flank pain, chronic Scoliosis associated with other condition Supraventricular tachycardia (~04/2020) identified during ED visit 04/2020, treated with 6mg adenosine with conversion to sinus Surgical History History of hysterectomy (~2011) also Kimberly urethral plication History of incision and drainage (~2013) right upper extremity and R lower extremity History of tubal ligation History of umbilical hernia repair (~2011) Hx of cataract surgery bilateral eye Family History Father Diabetes Mother Diabetes Grandfather Pacemaker Denies family history of Stroke Social History Smoking and tobacco status: current every day smoker (1 pack every 3-4 days) cigarettes Packs smoked per day: 0.5 Second hand smoke exposure: Yes Alcohol intake: never Marital status: Life Partner Number of children: 2 Number of grandchildren: 0 Current occupational status: unemployed Data Anesthesia : 12/24/21 08:41 12/24/21 08:41 Short CBC 12/24/21 Range/Units 08:41 WBC 6.9 (4.0-10.0) 10^3/uL Hgb 13.3 (11.5-15.3) g/dL Hct 39.7 (37.0-47.0) % MCV 85.2 (81-99) fl Plt Count 306 (130-400) 10^3/cmm Neut % (Auto) 51.1 % Neut # (Auto) 3.54 (1.8-7.7) 10^3/uL BMP 12/24/21 08:41 Sodium 134 L Potassium 4.2 Chloride 96 L Carbon Dioxide 27 BUN 9 Creatinine 0.6 Glucose 420 H Calcium 9.4 Cardiac Studies: Sestamibi Stress Test (Cardiology) 07/06
[2022-01-03] VITALS (9 sets, daily range): BP systolic 113–133; BP diastolic 77–100; PULSE 86–97; RESP 15–18; TEMP 36.4–36.8; O2SAT 97–100
--- NOTE | 2022-01-03 | SCC_ITS ---
Procedure done: 1. L4/5 laminectomy with partial facetectomy 2. L5/S1 laminectomy with partial facetectomy 26.5 seconds of fluoroscopic guidance, for a cumulative dose of 6.63 mGy, was provided to Dr. Grey by the radiology department. C-arm images of the lumbar spine were saved for the patient's permanent record. [facility]
--- NOTE | 2022-01-03 | XR_ITS ---
WS: [id number] Exam: XR lumbar spine 1V [id number] Date/Time of Exam: 01/03/2022 12:00 AM Reason For Exam: Lumbar decompression L4/5 and L5/S1 Anterior posterior C-arm images of the lower lumbar spine are submitted for evaluation. A metallic localization port is positioned over the L4-5 and L5-S1 disc levels to the left of midline . There is levoscoliosis of the visualized lumbar spine. No other significant finding on this limited series.
[2022-01-03 10:38] LABS: Glucose Point of Care 307 mg/dL (70-110)
[2022-01-03] MEDS: sodium chloride 0.9% 1,000 ML 30 ML IV (10:55)
--- NOTE | 2022-01-03 11:08 | PM.HP ---
Providers/Chief Complaint Primary Care Provider: Israel Otero MD Chief Complaint: lumbar decompression L4/5 L5/S1 [id number] History of Present Illness Mena Cano is a 46 year old female ?She states her pain started in 2005. She has been seeing a pain management doctor in [facility], [place] who referred her to a surgeon. However, She states this provider is not covered due to him being out of state. She describes pain that travels into her left lateral leg that is aggravated by walking, stairs and laying down. She has tried ablations in the past with no relief. She has also attempted physical therapy with no significant relief. Chief Complaint: back pain Onset: 2005 Duration: years Characteristics: pulling,? incontinence of bowel Severity: 11/28 Location: low back Radiating symptoms: left lateral leg Aggravating factors: laying down, walking for long periods, standing Alleviating factors: walking, message Neuro deficits: denies numbness, tingling, weakness, incontinence of bladder, saddle anesthesia. Prior tx: pain management Review of Systems General: Reports: 10 or more systems reviewed and unremarkable except in HPI and below Const: Denies: fever(s) or chills Card: Denies: chest pain or palpitations Resp: Denies: productive cough GI: Denies: abdominal pain, nausea or vomiting : Denies: flank pain Musc: Reports: extremity swelling, joint pain, joint stiffness, limited range of motion and deformity Skin/Breast: Reports: nail changes and change in hair; Denies: rash or sores Neuro: Reports: numbness in extremities, sensory changes and difficulty walking Psych: Denies: suicidal ideation Valentino/Lymph: Denies: easy bruising Medications/Allergies Home Medications Medication Instructions Recorded Confirmed Last Taken Type metformin 500 mg tablet 1,000 mg PO BID Diabetes 30 days 05/18/21 01/03/22 01/02/22 Rx #120 tabs Diabetic Shoes with 3 inserts #1 ea 08/12/21 12/13/21 12/01/21 Rx lancets 30 gauge (OneTouch Delica #100 ea 08/18/21 12/13/21 12/01/21 Rx Plus Lancet) hyoscyamine sulfate 0.125 mg 0.125 mg sublingual TID PRN 09/01/21 12/24/21 Unknown Rx sublingual tablet (Levsin/SL) dyspepsia 30 days #30 tabs buprenorphine 8 mg-naloxone 2 mg 0.5 film buccal TID 09/08/21 01/03/22 12/31/21 History sublingual film pen needle, diabetic 32 gauge x #50 ea 09/23/21 12/13/21 12/01/21 Rx (1st Tier Unifine Pentips) clonazepam 0.5 mg tablet 0.25 mg PO DAILY Panic attacks 30 10/19/21 01/03/22 01/02/22 Rx days #45 tabs omeprazole 20 mg capsule,delayed 20 mg PO DAILY 11/30/21 01/03/22 01/02/22 History release gabapentin 300 mg capsule See Rx Instructions .Route 12/07/21 01/03/22 01/03/22 Rx .COMPLEX #240 caps levothyroxine 50 mcg tablet See Rx Instructions .Route 12/07/21 01/03/22 01/03/22 Rx .COMPLEX #30 tabs glipizide 10 mg tablet, extended 10 mg PO BID diabetes #60 tabs 12/08/21 01/03/22 01/02/22 Rx release 24 hr hydroxyzine HCl 50 mg tablet 50 mg PO Q8H PRN itching #90 tabs 12/08/21 12/24/21 Unknown Rx mirtazapine 30 mg tablet 30 mg PO .[facility] & 12/08/21 01/03/22 01/02/22 Rx sleep #30 tabs zolpidem 10 mg tablet (Ambien) 10 mg PO .[facility] Insomnia 30 days #30 12/08/21 01/03/22 01/02/22 Rx tabs ondansetron HCl 4 mg tablet See Rx Instructions .Route 12/09/21 12/24/21 Unknown Rx .COMPLEX #30 tabs clarithromycin 500 mg tablet 500 mg PO TID 14 days #42 tabs 12/27/21 01/03/22 01/02/22 Rx metronidazole 500 mg tablet 500 mg PO BID 14 days #28 tabs 12/27/21 01/03/22 01/02/22 Rx pantoprazole 40 mg tablet,delayed 40 mg PO BID 14 days #28 tabs 12/27/21 01/03/22 01/02/22 Rx release (Protonix) buspirone 30 mg tablet 15 mg PO BID #60 tabs 12/29/21 01/03/22 01/02/22 Rx liraglutide 0.6 mg/0.1 mL (18 mg/3 1.8 mg SUBCUT DAILY PRN high blood 01/03/22 01/03/22 01/01/22 History mL) subcutaneous pen injector sugar (Victoza 3-Navneet) Allergies Allergy/AdvReac Type Severity Reaction Status Date / Time amoxicillin Allergy Unknown Verified 01/03/22 10:22 PFSH Acute PFSH: Medical History Anxiety and depression Chronic hip pain Chronic low back pain with left-sided sciatica Chronic pruritus Dehydration, mild Diabetes type 2, uncontrolled Diabetic neuropathy Dyslipidemia Elevated transaminase level GERD (gastroesophageal reflux disease) History of rheumatoid arthritis Hx of hepatitis C treatment with Dr. Morgan ~1999 Hypothyroidism Insomnia disorder, with other sleep disorder, recurrent Insulin dependent diabetes mellitus Marijuana use Nicotine dependence, cigarettes, uncomplicated JOSE (obstructive sleep apnea) per sleep study 2010, CPAP of 13 recommended at that time, no longer with machine Osteoarthritis involving multiple joints on both sides of body Paroxysmal SVT (supraventricular tachycardia) PTSD (post-traumatic stress disorder) Right flank pain, chronic Scoliosis associated with other condition Supraventricular tachycardia (~04/2020) identified during ED visit 04/2020, treated with 6mg adenosine with conversion to sinus Surgical History History of hysterectomy (~2011) also Kimberly urethral plication History of incision and drainage (~2013) right upper extremity and R lower extremity History of tubal ligation History of umbilical hernia repair (~2011) Hx of cataract surgery bilateral eye Family History Father Diabetes Mother Diabetes Grandfather Pacemaker Denies family history of Stroke Social History Smoking and tobacco status: current every day smoker (1 pack every 3-4 days) cigarettes Packs smoked per day: 0.5 Second hand smoke exposure: Yes Alcohol intake: never Marital status: Life Partner Number of children: 2 Number of grandchildren: 0 Current occupational status: unemployed Vitals/I&O/Wt Last Vital Signs Temp 98.2 F 01/03/22 10:27 Pulse 93 01/03/22 10:27 Resp 15 01/03/22 10:27 BP 127/100 01/03/22 10:27 Pulse Ox 98 01/03/22 10:27 O2 Del Method 01/03/22 10:27 Physical Exam Const: COMMON NORMALS: no acute distress and patient oriented x3 HENMT: COMMON NORMALS: oropharynx normal TEETH & GINGIVA: Yes edentulous Neck/C-Spine: COMMON NORMALS: no JVD Resp: COMMON NORMALS: normal respiratory effort and clear to auscultation bilaterally AUSCULTATION: clear to auscultation bilaterally Cardio: COMMON NORMALS: no JVD, regular rhythm, S1 normal heart sound present, S2 normal heart sound present and No murmurs present (Cardio) RATE: tachycardic RHYTHM: regular rhythm HEART SOUNDS: S1 normal heart sound present and S2 normal heart sound present GI: COMMON NORMALS: Normal to inspection, nondistended, normoactive bowel sounds present, Soft to palpation and non-tender PALPATION: Yes Soft to palpation Extremity: COMMON NORMALS: no joint enlargement and no pedal edema Neuro: COMMON NORMALS: patient oriented x3 and moves all extremities Skin: COMMON NORMALS: no rashes or lesions noted GENERAL SKIN EXAM: no rashes or lesions noted Data : 12/24/21 08:41 12/24/21 08:41 A&P Assessment and plan (1) Lumbar stenosis with neurogenic claudication: Status: Acute Plan lumbar decompression Attestations Medical Necessity Statement*: failed conservative tx Coding Level of Care Code Acute Multicultural Services Librarian for [facility] Fwd Diagnoses Lumbar stenosis with neurogenic claudication M48.062
[2022-01-03] MEDS: insulin regular-human 100 units/1 mL 10 UNIT IVP (11:19)
[2022-01-03] MEDS: HYDROmorphone 1 mg/mL INJ 1 mL 0.5 MG IVP (11:20)
[2022-01-03] MEDS: clindamycin 900 MG/50 ML PREMIX 100 MG IV (11:21)
--- NOTE | 2022-01-03 11:30 | P.ANESUD_ITS ---
Pre-Anesthetic Update Pre-Anesthetic Assessment: Date of Surgery/Procedure: 01/03/22 Preop Lyndsay gnosis: Lumbar stenosis w neurogenic Claudication Proposed Procedure: Operation Date: 01/03/22 12:00 Proposed Procedures p Lumbar Spine Decompression L4/5 L5/S1 [id number]/96046 M54.42(Not Applicable) - Darwin Grey, DO Any changes to Pre-Anesthetic Assessment?: No Last Intake: Intake Last Liquid Date 01/02/22 Last Liquid Time 21:00 Last Solid Date 01/02/22 Last Solid Time 21:00 Vitals: Temperature 98.2 F 01/03/22 10:27 Temperature Source Oral 01/03/22 10:27 Pulse Rate 93 01/03/22 10:27 Respiratory Rate 16 01/03/22 11:20 Respiratory Effort 01/03/22 11:20 Respiratory Depth Normal 01/03/22 11:20 Respiratory Patter n 01/03/22 11:20 Blood Pressure 127/100 01/03/22 10:27 Blood Pressure Cassandra n 109 01/03/22 10:27 Pulse Oximetry 98 01/03/22 11:20 Oxygen Delivery Me thod 01/03/22 10:27 Exam: Pre-Anes Outpt Exam: alert, oriented x 3, clear to auscultation bilaterally and regular rate & rhythm Additional Exam Findings (including area of procedure): Glucose poorly controlled. Cardiac Studies: Sestamibi Stress Test (Cardiology) 07/06
--- NOTE | 2022-01-03 12:59 | P.PCN_ITS ---
PACU note Narrative: VSS, Good respiratory effort, report to SCHOOL PSYCHOLOGY SPECIALIST Exam: awake
--- NOTE | 2022-01-03 12:59 | PM.PACU ---
PACU note Narrative: VSS, Good respiratory effort, report to BAR HOSTESS Exam: awake
--- NOTE | 2022-01-03 13:06 | P.OP_ITS ---
Operative Report Date of procedure: January 03, 2022 Pre-op diagnosis: Preop Diagnosis Lumbar stenosis w neurogenic Claudication Post-op diagnosis: same Procedure done: 1. L4/5 laminectomy with partial facetectomy 2. L5/S1 laminectomy with partial facetectomy Surgeon: Darwin Grey Estimated blood loss (mL): 5 Procedure: 1. L4/5 laminectomy with partial facetectomy 2. L5/S1 laminectomy with partial facetectomy Patient is brought to the operative suite. After undergoing anesthesia they are placed in the prone position. All areas of impingement are well padded. Patient is then prepped and draped in the normal sterile fashion. A skin incision is made over the L4/5 level. This is confirmed under c-arm guidance. A series of dilators are passed and the tubular retractor is docked on the L4 lamina. A bovie is used to clear the soft tissue off the lamina and the L 4/5 facet joint. A high speed lenin is then used to perform the laminectomy and take down the medial aspect of the L 4/5 facet joint. A k errison rongeure was then used to take down the remaining lamina and smooth the edge of the laminectomy up to the point where the ligamentum flavum attaches. Attention was then brought to the medial aspect of the facet joint. The remaining medial aspect of the superior and inferior aspect of the facet joint were taken down with the kerrison from the pedicle of L4 to L 5. The facet joint had significant hypertrophy. Attention was then brought to the Ligamentum Flavum. The ligament was taken down from the lamina of L4 to L5 and out medially to the remaining facet joint. The ligament was thick. The dura was then exposed. The dura was in good repair. The L4 nerve was then traced with a curette out the L4/5 foramen and found to be adequately decompressed. The L5 nerve was traced with a curette around the L5 pedicle. The lateral recess was opened with a kerrison helping to further decompress the L5 nerve. Wound is then irrigated copiously with saline and surgiflo is used to stop any bleeding. The tubular retractor is removed and the A skin incision is made over the L5/S1 level. This is confirmed under c-arm guidance. A series of dilators are passed and the tubular retractor is docked on the L5 lamina. A bovie is used to clear the soft tissue off the lamina and the L 5/S1 facet joint. A high speed lenin is then used to perform the laminectomy and take down the medial aspect of the L 5/S1 facet joint. A kerrison rongeure was then used to take down the remaining lamina and smooth the edge of the laminectomy up to the point where the ligamentum flavum attaches. Attention was then brought to the medial aspect of the facet joint. The remaining medial aspect of the superior and inferior aspect of the facet joint were taken down with the kerrison from the pedicle of L5 to S1. The facet joint had significant hypertrophy. Attention was then brought to the Ligamentum Flavum. The ligament was taken down from the lamina of L5 to S1 and out medially to the remaining facet joint. The ligament was thick. The dura was then exposed. The dura was in good repair. The L5 nerve was then traced with a curette out the L5/S1 foramen and found to be adequately decompressed. The S1 nerve was traced with a curette around the S1 pedicle. The lateral recess was opened with a kerrison helping to further decompress the S1 nerve. Wound is then irrigated copiously with saline and surgiflo is used to stop any bleeding. The tubular retractor is removed and the wound is closed with vicryl and monocryl suture. Glue is then used to protect the wound. A sterile dressing is then placed. Patient was then placed in the supine position and transferred to the PACU in stable condition.
[2022-01-03] MEDS: HYDROcodone-acetaminophen 5-325 mg Tablet 1 TAB PO (13:33)
--- NOTE | 2022-01-03 13:55 | ANE.PACU2 ---
Inpatient post-anesthesia follow up: Airway intact: Yes Vital signs: Temperature 98 F Pulse Rate 89 Respiratory Rate 17 Blood Pressure 130/88 Pulse Oximetry 100 Oxygen Delivery Me thod Room Air Oxygen Flow Rate Fraction of Inspir ed Oxygen Hydration adequate: Yes Nausea and vomiting: No Pain level: 3 Mental status: Baseline
== END 2022-01-03 14:40 | disposition home or self-care (01) ==
PROVIDERS: Anesthesiology; PCP Family Medicine Adult Medicine; Visit Provider Orthopaedic Surgery
PROC: (CPT 63005; principal; 2022-01-03 11:50)
DX: M48.062 Spinal stenosis, lumbar region with neurogenic claudication (principal); F41.9 Anxiety disorder, unspecified; F32.A Depression, unspecified; E11.40 Type 2 diabetes mellitus with diabetic neuropathy, unspecified; Z79.84 Long term (current) use of oral hypoglycemic drugs; E78.5 Hyperlipidemia, unspecified; K21.9 Gastro-esophageal reflux disease without esophagitis; M06.9 Rheumatoid arthritis, unspecified; Z86.19 Personal history of other infectious and parasitic diseases; E03.9 Hypothyroidism, unspecified; Z79.4 Long term (current) use of insulin; G47.33 Obstructive sleep apnea (adult) (pediatric); F17.210 Nicotine dependence, cigarettes, uncomplicated; J44.9 Chronic obstructive pulmonary disease, unspecified
CPT/HCPCS: 63047; 63048; 36416; 72020; 76000; 80048; 82962; 85025; J1100; J1170; J1815; J2250; J2405; J2704; J2710; J3010; J3490; J7030

== ENCOUNTER 2022-01-07 10:56 | Emergency (ER) | payer MEDICAID, SELFPAY ==
[2022-01-07 11:10] VITALS: BP 138/80; PULSE 93; RESP 20; TEMP 36.4; O2SAT 99; BMI 22.1
--- NOTE | 2022-01-07 11:22 | ED_ITS ---
HPI - Abdominal Pain General: Chief Complaint: Back Pain/Injury Stated Complaint: N/V/D/ ABDOMINAL PAIN Time Seen by Provider: 01/07/22 11:08 Source: patient Mode of arrival: EMS Limitations: no limitations History of Present Illness: This patient was transported to the emergency department from her home by EMS. She is recently been admitted to the hospital had a lumbar decompression. She states that approximately a day and a half ago she started developing loose stools which were looser than normal. She states that she is not any documented fevers. She states that he had no blood in her stools or black tarry stools. She says she has been to drink some fluids but is not felt like she wanted to eat as she thought to have a contribute to her loose stools. She quantifies the v stools is approximately 20 since its initiation. She was recently on antibiotics for what sounds like H. pylori but has not taken those for several days. She presumably had perioperative antibiotics but was not prescribed any antibiotics postoperatively that she tells me today. She has not been exposed to infectious disease. She states she is not taking any of her usual medications including her pain medicines since her stools became loose. She complains of crampy abdominal pain. She states she urinates when she has stools. Denies any loss of bowel or bladder control other than she has to go to the bathroom when she feels the urge to defecate. He is able to control her stools however. She denies any change in her usual status of lower extremity numbness weakness etc. She states that her back pain is the same as it was when she was discharged in the hospital has not increased. She has had a prior CYRIL but no other abdominal surgeries that she tells me today. Pain Consistency: intermittent Location: Diffuse Quality: cramping Migration to: no migration Associated Symptoms: Reports change in bowel habits and diarrhea; Denies chills, dysuria, fever(s), hematochezia, melena and syncope Review of Systems Const: Denies: fever(s) or chills Eyes: Denies: change in vision ENMT: Denies: odynophagia, dental pain or ear or mastoid pain Card: Denies: chest pain, palpitations, irregular heart rhythm or syncope Resp: Denies: dyspnea, productive cough or non-productive cough GI: Reports: diarrhea and change in bowel habits; Denies: hematochezia or melena : Denies: flank pain, difficulty voiding or dysuria Musc: Denies: neck pain, back pain, extremity pain or extremity swelling Skin/Breast: Denies: rash or pruritus Neuro: Denies: headache(s), numbness in extremities, weakness in extremities or seizure-like activity Endo: Denies: polyuria or polydipsia PFSH ED PFSH: Medical History Anxiety and depression Chronic hip pain Chronic low back pain with left-sided sciatica Chronic pruritus Dehydration, mild Diabetes type 2, uncontrolled Diabetic neuropathy Dyslipidemia Elevated transaminase level GERD (gastroesophageal reflux disease) History of rheumatoid arthritis Hx of hepatitis C treatment with Dr. Morgan ~1999 Hypothyroidism Insomnia disorder, with other sleep disorder, recurrent Insulin dependent diabetes mellitus Marijuana use Nicotine dependence, cigarettes, uncomplicated JOSE (obstructive sleep apnea) per sleep study 2010, CPAP of 13 recommended at that time, no longer with machine Osteoarthritis involving multiple joints on both sides of body Paroxysmal SVT (supraventricular tachycardia) PTSD (post-traumatic stress disorder) Right flank pain, chronic Scoliosis associated with other condition Supraventricular tachycardia (~04/2020) identified during ED visit 04/2020, treated with 6mg adenosine with conversion to sinus Surgical History History of hysterectomy (~2011) also Kimberly urethral plication History of incision and drainage (~2013) right upper extremity and R lower extremity History of tubal ligation History of umbilical hernia repair (~2011) Hx of cataract surgery bilateral eye Family History Father Diabetes Mother Diabetes Grandfather Pacemaker Denies family history of Stroke Social History Smoking and tobacco status: current every day smoker (1 pack every 3-4 days) cigarettes Packs smoked per day: 0.5 Second hand smoke exposure: Yes Alcohol intake: never Marital status: Life Partner Number of children: 2 Number of grandchildren: 0 Current occupational status: unemployed Physical Exam Narrative: EXAM NARRATIVE: The patient's seen and examined in the hallway due to current volume status in the emergency department. She is actively moaning and groaning but will stop doing so when she is engaged by this examiner or the nursing staff. Upon completion of our conversation she was observed to resume her moaning and groaning in the hallway. During examination when she is also focused on evaluation she does not make any moaning and groaning verbalizations. She makes good eye contact and answers questions generally in a goal-directed fashion. Const: COMMON NORMALS: patient oriented x3 GENERAL APPEARANCE: in distress NUTRITIONAL APPEARANCE: thin ORIENTATION/CONSCIOUSNESS: Yes awake HENMT: COMMON NORMALS: normocephalic, atraumatic, Normal nasal mucous membranes and turbinates present and moist oral mucous membranes HEAD & SCALP: normocephalic and atraumatic FACE & SINUS: normal facial exam NOSE: Normal nasal mucous membranes and turbinates present Eye: COMMON NORMALS: Equal, round and reactive pupils present, EOMs intact bilaterally, conjunctivae normal and no scleral icterus CONJUNCTIVA: Yes conjunctivae normal PUPIL: Yes Equal, round and reactive pupils present Neck/C-Spine: COMMON NORMALS: full ROM, no lymphadenopathy, supple, no meningeal signs, no JVD and Thyroid normal THYROID: Thyroid normal Chest: COMMONS NORMALS: normal inspection of the chest Resp: COMMON NORMALS: normal respiratory effort, No retractions, No use of accessory muscles and clear to auscultation bilaterally EFFORT & INSPECTION: Yes able to speak in complete sentences AUSCULTATION: clear to auscultation bilaterally Cardio: COMMON NORMALS: no JVD, regular rate, No gallops present (Cardio), No murmurs present (Cardio) and Peripheral pulses 2+ throughout RATE: regular rate PERIPHERAL PULSES: Peripheral pulses 2+ throughout GI: COMMON NORMALS: Normal to inspection, nondistended, normoactive bowel sounds present, Soft to palpation, no masses and no bruits PALPATION: Yes Soft to palpation, No Guarding due to palpation present (GI), No Hernia present, No Rebound tenderness present and No Bladder palpation abnormal OTHER: Examination of her abdomen generally reveals to be soft no rebound or guarding although she does have subjective complaints of tenderness in various areas there is no localization. : COMMON NORMALS: Yes no CVA tenderness BLADDER/KIDNEY EXAM: Yes bladder normal to palpation, Yes no CVA tenderness and No Bladder palpation abnormal EXTERNAL FEMALE EXAM: No Hernia present BIMANUAL EXAM - VAGINA & UTERUS: Yes bladder normal to palpation OTHER: Portable bedside ultrasound was used to visualize the urinary bladder. It was not significantly distended and when 1 would estimate at this time it has approximately 2 to 300 mL of fluid within the bladder. Back/Pelvis: COMMON NORMALS: no CVA tenderness, no thoracic nor lumbar tenderness, thoraco-lumbar ROM normal and straight leg raise negative bilaterally OTHER: Emanation of back reveals no step-offs, skin erythema, drainage. She has a lumbar midline surgical wound that is well approximated. There is no erythema, no discharge. Extremity: COMMON NORMALS: normal to inspection, capillary refill normal, no clubbing, cyanosis or edema and no calf tenderness Neuro: COMMON NORMALS: patient oriented x3, moves all extremities, no focal motor deficits and no sensory deficits noted MENINGEAL SIGNS: Yes no meningeal signs CRANIAL NERVES: Yes CN normal except as noted SPEECH: speech normal Course Reevaluation(s): Reevaluation #1: Patient is clinically improved. Because of her borderline CO2 level and anion gap a ABG was obtained which revealed a normal pH. She has no abdominal findings on reexamination. Her abdomen is soft nontender no rebound or guarding. She is given p.o. fluids to ensure that she will be able to tolerate fluids. She was also hydrated with IV fluids while in the emergency department. If she tolerates p.o. fluids the plan will be to discharge her back to home to resume her usual medications as I think her being off her medications for a day and a half may have impact led to some of her GI symptoms as she is a chronic Suboxone user and was using hydrocodone which may have upset her stomach. We will have her stop the hydrocodone which she has not taken for the day and a half anyway and go back on her Suboxone which will give her analgesia as well as saturate her opiate receptors. Her CT scan was reassuring and that there is no evidence of intra-abdominal pathology and that it is certainly no evidence at this time of any disruption of her surgery site to include possible infection etc. Time: 15:42 Reevaluation #2: Patient appears to be doing much better. She is drinking fluids seems to be very conversant and she is interacting with the other patients in the emergency department. Repeat examination reveals her to be in no acute distress. Abdomen is soft and nontender. She has good motor function in all extremities without any evidence of weakness. No other new or focal findings. She has had no emesis since arrival in the emergency department. Time: 16:24 Consultations: Consultation #1: Discussed with Dr. Small and he agreed with the proposed plan. Time: 15:42 Vital Signs: Vital signs: Vital Signs Temperature 97.6 F 01/07/22 11:10 Pulse Rate 93 01/07/22 11:10 Respiratory Rate 20 H 01/07/22 11:10 Blood Pressure 138/80 01/07/22 11:10 Pulse Oximetry 99 01/07/22 11:10 Oxygen Delivery Me thod 01/07/22 11:10 MDM - Abdominal Pain Medical Decision Making L[place]Patient seen in the emergency department she is status post a decompression laminectomy. She previously was on Suboxone had been switched temporarily to hydrocodone postoperatively and had repetitive emesis for the last day and a half or so and did not take it or other her other medications. She also apparently returned back to work yesterday or the day before which is far sooner than recommended by her surgeon. She was evaluated in the emergency department to include CT scan with reformats of her lumbar spine. No evidence of intra-abdominal obstruction process or other surgical process at this time. Her clinical examination was reassuring without any evidence of localized wound infection and again her CT was reassuring. She responded to IV hydration as well as p.o. hydration. Her laboratories were somewhat abnormal but a arterial blood gas showed no evidence of significant acidosis or other findings at this time. She was hydrated with name with normal saline is noted and she is clinically stable at this time to be discharged. The plan will be to be have her start taking her Suboxone for pain relief and opiate addiction control and not take any more exogenous opiates. We encouraged her to restart her other medications and monitor her blood sugar at home. She is to also to resume her regular diet. We also discussed return precautions in detail. Her surgeon was also consulted during this emergency department visit. Medical Records I reviewed the patient's medical records. Lab Data I reviewed the patient's lab results. : 01/07/22 13:15 01/07/22 13:15 Labs/Radiology: Radiology Impressions Abdomen/Pelvis CT 01/07/22 11:31 IMPRESSION: 1. Mild circumferential urinary bladder wall thickening, possibly secondary to underdistention. Correlate with urinalysis to exclude cystitis. 2. Additional findings, as above. Laboratory Results WBC 11.0 10^3/uL (4.0-10.0) H 01/07/22 13:15 RBC 5.11 10^6/uL (4.1-5.3) 01/07/22 13:15 Hgb 14.4 g/dL (11.5-15.3) 01/07/22 13:15 Hct 41.8 % (37.0-47.0) 01/07/22 13:15 MCV 81.8 fl (81-99) 01/07/22 13:15 MCH 28.2 pg (28.0-34.0) 01/07/22 13:15 MCHC 34.4 g/dL (30.0-36.0) 01/07/22 13:15 RDW 12.6 % (12.1-15.1) 01/07/22 13:15 Plt Count 354 10^3/cmm (130-400) 01/07/22 13:15 MPV 9.3 fL (7.4-10.4) 01/07/22 13:15 Neut % (Auto) 75.1 % 01/07/22 13:15 Lymph % (Auto) 17.1 % 01/07/22 13:15 [place] % (Auto) 6.8 % 01/07/22 13:15 Eos % (Auto) 0.2 % 01/07/22 13:15 Baso % (Auto) 0.4 % 01/07/22 13:15 Neut # (Auto) 8.24 10^3/uL (1.8-7.7) H 01/07/22 13:15 Lymph # (Auto) 1.9 10^3/uL (0.8-4.8) 01/07/22 13:15 [place] # (Auto) 0.7 10^3/uL (0.2-0.9) 01/07/22 13:15 Eos # (Auto) 0.0 10^3/uL (0.0-0.8) 01/07/22 13:15 Baso # (Auto) 0.0 10^3/uL (0.0-0.1) 01/07/22 13:15 Nucleated RBC % (auto) 0 % 01/07/22 13:15 Nucleated RBCs # 0.0 /100WBC 01/07/22 13:15 Specimen Type Arterial 01/07/22 14:50 Sample Site Brachial, left 01/07/22 14:50 ABG pH 7.45 (7.35-7.45) 01/07/22 14:50 ABG pCO2 31.2 mmHg (35-45) L 01/07/22 14:50 ABG pO2 89.5 mmHg (80.0-100.0) 01/07/22 14:50 ABG HCO3 21.5 mmol/L (22-26) L 01/07/22 14:50 ABG O2 Saturation 97.9 01/07/22 14:50 ABG Base Excess -1.7 mmol/L (-2.0-2.0) 01/07/22 14:50 Satish Test N/a 01/07/22 14:50 A-a O2 Gradient 2.6 mmHg (5-10) L 01/07/22 14:50 Hematocrit 41.6 % (37-47) 01/07/22 14:50 Hgb O2 Saturation 95.9 % (95-100) 01/07/22 14:50 Carboxyhemoglobin 1.2 %THgb (0.4-20.1) 01/07/22 14:50 Methemoglobin 0.9 % (0.4-1.5) 01/07/22 14:50 Total Hemoglobin 13.6 g/dL (12-16) 01/07/22 14:50 Sodium 132.0 mmol/L (131-143) 01/07/22 14:50 Potassium 3.7 mmol/L (3.5-5.0) 01/07/22 14:50 Glucose 220.0 mg/dL (70-115) H 01/07/22 14:50 Ionized Calcium 1.2 mmol/L (1.1-1.4) 01/07/22 14:50 O2 Delivery Device Room air 01/07/22 14:50 Bow Maker Machine Tender ID Hinja 01/07/22 14:50 Sodium 129 mmol/L (136-145) L 01/07/22 13:15 Potassium 4.2 mmol/L (3.5-5.1) 01/07/22 13:15 Chloride 93 mmol/L (98-107) L 01/07/22 13:15 Carbon Dioxide 20 mmol/L (22-29) L 01/07/22 13:15 Anion Gap 20.2 (5-19) H 01/07/22 13:15 BUN 14 mg/dL (6-20) 01/07/22 13:15 Creatinine 0.3 mg/dL (0.5-0.9) L 01/07/22 13:15 GFR Calculation 237.4 mL/min (90-130) H 01/07/22 13:15 Glucose 207 mg/dL (65-115) H 01/07/22 13:15 POC Glucose 207 mg/dL (70-110) H 01/07/22 14:15 Calculated Osmolality 275 mOsm/kg (285-295) L 01/07/22 13:15 Calcium 9.3 mg/dL (8.5-10.5) 01/07/22 13:15 Total Bilirubin 0.5 mg/dL (0.15-1.2) 01/07/22 13:15 AST 35 U/L (0-32) H 01/07/22 13:15 ALT 36 U/L (0-33) H 01/07/22 13:15 Alkaline Phosphatase 118 U/L (35-105) H 01/07/22 13:15 Total Protein 7.3 g/dL (6.6-8.7) 01/07/22 13:15 Albumin 3.9 g/dL (3.5-5.2) 01/07/22 13:15 Globulin 3.4 g/dL (1.3-4.6) 01/07/22 13:15 Urine Color Yellow (Yellow) 01/07/22 11:56 Urine Appearance Clear (CLEAR) 01/07/22 11:56 Urine pH 5 (5-7) 01/07/22 11:56 Ur Specific [place] 1.025 (1.005-1.030) 01/07/22 11:56 Urine Protein Neg (Negative) 01/07/22 11:56 Urine Glucose (UA) 4+ (Normal) H 01/07/22 11:56 Urine Ketones 3+ (Negative) H 01/07/22 11:56 Urine Blood Neg (Negative) 01/07/22 11:56 Urine Nitrate Negative (Negative) 01/07/22 11:56 Urine Bilirubin Neg (Negative) 01/07/22 11:56 Urine Urobilinogen Norm mg/dL (Negative) 01/07/22 11:56 Ur Leukocyte Esterase Negative (Negative) 01/07/22 11:56 Discharge Plan Discharge Patient Disposition: Home Clinical Impression: Nausea & vomiting, Status post lumbar laminectomy, Opiate dependence Condition: Stable Prescriptions: New ondansetron 4 mg tablet,disintegrating 4 mg PO Q8H PRN (Reason: nausea and vomiting) 5 Days Qty: 14 0RF No Action metformin 500 mg tablet 1,000 mg PO BID 30 Days Qty: 120 5RF Rx Instructions: 340 B medication buprenorphine-naloxone 8-2 mg film 0.5 film buccal TID hydroxyzine HCl 50 mg tablet 50 mg PO Q8H PRN (Reason: itching) Qty: 90 0RF glipizide 10 mg tablet extended release 24hr 10 mg PO BID Qty: 60 5RF mirtazapine 30 mg tablet 30 mg PO .qhs Qty: 30 2RF zolpidem [Ambien] 10 mg tablet 10 mg PO .qhs 30 Days Qty: 30 3RF (DME) Diabetic Shoes with 3 inserts See Rx Instructions .Route .MEDSUPPLY Qty: 1 0RF Rx Instructions: As directed (DME) lancets [OneTouch Delica Plus Lancet] 30 gauge misc See Rx Instructions .ROUTE .COMPLEX Qty: 100 1RF Dose Instruction: USE DIRECTED TO TEST BLOOD SUGAR ONCE DAILY. Rx Instructions: USE DIRECTED TO TEST BLOOD SUGAR ONCE DAILY. hyoscyamine sulfate [Levsin/SL] 0.125 mg tablet, sublingual 0.125 mg sublingual TID PRN (Reason: dyspepsia) 30 Days Qty: 30 2RF (DME) pen needle, diabetic [1st Tier Unifine Pentips] 32 gauge x 5/32 needle See Rx Instructions .Route Qty: 50 12RF Rx Instructions: As directed, use with victoza to administer, daily. clonazepam 0.5 mg tablet 0.25 mg PO DAILY 30 Days Qty: 45 2RF levothyroxine 50 mcg tablet See Rx Instructions .ROUTE .COMPLEX Qty: 30 5RF Dose Instruction: TAKE 1 TABLET BY MOUTH EVERY DAY IN THE MORNING Rx Instructions: TAKE 1 TABLET BY MOUTH EVERY DAY IN THE MORNING gabapentin 300 mg capsule See Rx Instructions .ROUTE .COMPLEX Qty: 240 5RF Dose Instruction: TAKE THREE CAPSULES BY MOUTH EVERY MORNING, TAKE TWO CAPSULES BY MOUTH AT NOON, TAKE THREE CAPSULES EVERY EVENING FOR CHRONIC HIP/BACK PAIN Rx Instructions: TAKE THREE CAPSULES BY MOUTH EVERY MORNING, TAKE TWO CAPSULES BY MOUTH AT NOON, TAKE THREE CAPSULES EVERY EVENING FOR CHRONIC HIP/BACK PAIN ondansetron HCl 4 mg tablet See Rx Instructions .ROUTE .COMPLEX Qty: 30 1RF Dose Instruction: TAKE ONE TABLET BY MOUTH EVERY EIGHT HOURS NEEDED FOR NAUSEA AND VOMITING Rx Instructions: TAKE ONE TABLET BY MOUTH EVERY EIGHT HOURS NEEDED FOR NAUSEA AND VOMITING clarithromycin 500 mg tablet 500 mg PO TID 14 Days Qty: 42 0RF metronidazole 500 mg tablet 500 mg PO BID 14 Days Qty: 28 0RF pantoprazole [Protonix] 40 mg tablet,delayed release (DR/EC) 40 mg PO BID 14 Days Qty: 28 0RF buspirone 30 mg tablet 15 mg PO BID Qty: 60 3RF omeprazole 20 mg capsule,delayed release(DR/EC) 20 mg PO DAILY Victoza 3-Navneet 0.6 mg/0.1 mL (18 mg/3 mL) pen injector 1.8 mg SUBCUT DAILY PRN (Reason: high blood sugar) hydrocodone-acetaminophen 5-325 mg tablet 1 - 2 tab PO .Q4-6H Qty: 40 0RF Discharge Orders: Discharge ED (Routine); Ordered 01/07/22 Ordered By: Abraahm Montanez Referrals: Israel Otero MD [Primary Care Provider] - Discharge Diet: Advance as tolerated and Usual diet Discharge Activity: Limit activity as instructed Patient Instructions: Opioid Safety Activity Restrictions/Additional Instructions: Continue with your postoperative instructions as per Dr. Grey. Pure hydrocodone and resume your Suboxone as previously used. Purchase MiraLAX and take 1 teaspoon twice daily to prevent any constipation issues. If you develop any new persistent or worsening symptoms such as fever, lower extremity weakness, increasing pain return to this or the nearest emergency department immediately Coding Level of Care Code ED Line Service Supervisor for Esperanza Fwd Exam Comprehensive
--- NOTE | 2022-01-07 11:31 | CTR_ITS ---
PROCEDURE INFORMATION: Exam: CT Abdomen And Pelvis With Contrast Exam date and time: 01/07/2022 12:46 PM Age: 46 years old Clinical indication: Abdominal pain; Generalized; Prior surgery; Surgery date: 3-7 days post-operative; Surgery type: Reconstruct lumbar spine; Additional info: Abd pain, reconstruct lumbar spine-s/p lumbar decompression 6 days TECHNIQUE: Imaging protocol: Computed tomography of the abdomen and pelvis with contrast. Axial, coronal and sagittal reformatted images were created and reviewed. Radiation optimization: All CT scans at this facility use at least one of these dose optimization techniques: automated exposure control; mA and/or kV adjustment per patient size (includes targeted exams where dose is matched to clinical indication); or iterative reconstruction. Contrast material: 350 OMNI; Contrast volume: 80 ml; Contrast route: INTRAVENOUS (IV); COMPARISON: CT abdomen pelvis w con* [id number] 09/06/2021 3:50 PM RADIATION DOSE METRICS: Total DLP (mGy-cm): 354.59 FINDINGS: Liver: Mild hepatic steatosis. Unchanged 1.3 cm cyst in the right hepatic lobe. Coarse calcified granuloma in the hepatic dome. Gallbladder and bile ducts: No radiodense gallstones. No biliary ductal dilatation. Pancreas: Unremarkable. Spleen: Coarse calcified splenic granulomata. Adrenal glands: Normal. No mass. Kidneys and ureters: No mass. No radiodense calculi. No hydronephrosis. Stomach and bowel: No bowel wall thickening. No obstruction. No pneumatosis. Appendix: Normal. Intraperitoneal space: Trace nonspecific free pelvic fluid, likely physiologic and/or reactive. No organized fluid collection. No free air. Vasculature: Mild atherosclerotic disease. No aneurysm or dissection. Lymph nodes: No pathologically enlarged lymph nodes. Urinary bladder: Mild circumferential urinary bladder wall thickening, possibly secondary to underdistention. Reproductive: Status post hysterectomy. Bones/joints: Osteopenia. Degenerative changes. Postsurgical changes in the lower lumbar spine. Soft tissues: Unremarkable. CT/CT abdomen pelvis w con* [id number] IMPRESSION: 1. Mild circumferential urinary bladder wall thickening, possibly secondary to underdistention. Correlate with urinalysis to exclude cystitis. 2. Additional findings, as above.
[2022-01-07 11:33] VITALS: PULSE 87; RESP 16; O2SAT 97
[2022-01-07 12:08] LABS: Add Urine Microscopic? NO; Charge for UA Resulting for Rev
[2022-01-07 12:16] LABS: Bilirubin Urine Neg (Negative); Blood Urine Neg (Negative); Glucose Urine UA 4+ (Normal); Ketones Urine 3+ (Negative); Leukocyte Esterase Urine Negative (Negative); Nitrate Urine Negative (Negative); Protein Urine Neg (Negative); Specific Gravity, Urine 1.025 (1.005-1.030); Urine Appearance Clear (CLEAR); Urine Color Yellow (Yellow); Urobilinogen Urine Norm (Negative); pH Urine 5 (5-7)
[2022-01-07] MEDS: HYDROmorphone 1 mg/mL INJ 1 mL 0.5 MG IVP (12:27)
[2022-01-07] MEDS: sodium chloride 0.9% 1,000 ML 999 ML IV (12:28)
[2022-01-07] MEDS: ondansetron 2 mg/ML SDV 2 mL 4 MG IVP (12:28)
[2022-01-07 12:55] VITALS: PULSE 89; RESP 18; O2SAT 98
[2022-01-07] MEDS: iohexol 350 mg/mL 100 mL Btl IV (13:04)
[2022-01-07 13:21] LABS: Basophils % 0.4 %; Eosinophils % 0.2 %; Hematocrit 41.8 % (37.0-47.0); Hemoglobin 14.4 g/dL (11.5-15.3); Lymphocytes # 1.9 10^3/uL (0.8-4.8); Lymphocytes % 17.1 %; Mean Corpuscular HGB Conc 34.4 g/dL (30.0-36.0); Mean Corpuscular Hemoglobin 28.2 pg (28.0-34.0); Mean Corpuscular Volume 81.8 fl (81-99); Mean Platelet Volume 9.3 fL (7.4-10.4); Monocytes # 0.7 10^3/uL (0.2-0.9); Monocytes % 6.8 %; Neutrophils # 8.24 10^3/uL (1.8-7.7); Neutrophils % 75.1 %; Nucleated Red Blood Cells % 0 %; Platelet Count 354 10^3/cmm (130-400); Red Blood Count 5.11 10^6/uL (4.1-5.3); Red Cell Distribution Width 12.6 % (12.1-15.1)
[2022-01-07 13:41] LABS: Alanine Aminotransferase 36 U/L (0-33); Albumin Level 3.9 g/dL (3.5-5.2); Alkaline Phosphatase 118 U/L (35-105); Blood Urea Nitrogen 14 mg/dL (6-20); Calcium 9.3 mg/dL (8.5-10.5); Carbon Dioxide 20 mmol/L (22-29); Chloride 93 mmol/L (98-107); Globulin 3.4 g/dL (1.3-4.6); Glomerular Filtration Rate 237.4 mL/min (90-130); Glucose 207 mg/dL (65-115); Osmolality Calculated 275 mOsm/kg (285-295); Sodium 129 mmol/L (136-145); Total Bilirubin 0.5 mg/dL (0.15-1.2); Total Protein 7.3 g/dL (6.6-8.7)
[2022-01-07 13:43] LABS: Anion Gap 20.2 (5-19); Potassium 4.2 mmol/L (3.5-5.1)
[2022-01-07 13:44] LABS: Aspartate Amino Transferase 35 U/L (0-32)
[2022-01-07 13:55] VITALS: PULSE 88; RESP 18; O2SAT 98
[2022-01-07 14:18] LABS: Glucose Point of Care 207 mg/dL (70-110)
[2022-01-07 14:59] LABS: ABG PCO2 31.2 mmHg (35-45); ABG PH Result 7.45 (7.35-7.45); Alveolar-Arterial Oxygen Gradi 2.6 mmHg (5-10); Arterial Blood Gas Hematocrit 41.6 % (37-47); Base Excess ABG -1.7 mmol/L (-2.0-2.0); Blood Gas Sample Site Brachial, left; Blood Gas Sample Type Arterial; Carboxyhemoglobin 1.2 %THgb (0.4-20.1); HCO3 ABG 21.5 mmol/L (22-26); HGB O2 Sat 95.9 % (95-100); Ionized Calcium Level - ABG 1.2 mmol/L (1.1-1.4); Methemoglobin 0.9 % (0.4-1.5); Oxygen Device ROOM AIR; Oxygen Saturation ABG 97.9; PO2 ABG 89.5 mmHg (80.0-100.0); Potassium Level - ABG 3.7 mmol/L (3.5-5.0); Total Hemoglobin 13.6 g/dL (12-16)
[2022-01-07 16:28] VITALS: BP 136/78; PULSE 90; RESP 16; O2SAT 97
== END 2022-01-07 16:40 | disposition home or self-care (01) ==
PROVIDERS: Emergency Provider Emergency Medicine; PCP Family Medicine Adult Medicine
DX: R11.2 Nausea with vomiting, unspecified (principal); Z98.890 Other specified postprocedural states; F11.20 Opioid dependence, uncomplicated; Z79.84 Long term (current) use of oral hypoglycemic drugs; F17.210 Nicotine dependence, cigarettes, uncomplicated; E11.9 Type 2 diabetes mellitus without complications; E78.5 Hyperlipidemia, unspecified; Z86.19 Personal history of other infectious and parasitic diseases
CPT/HCPCS: 36415; 36416; 36600; 74177; 80051; 80053; 81003; 82330; 82805; 82962; 85025; 96374; 96375; 99285; J1170; J2405; J7030; Q9967

== ENCOUNTER 2022-01-09 08:15 | Emergency (ER) | payer MEDICAID, SELFPAY ==
[2022-01-09 08:18] VITALS: BP 131/86; PULSE 95; RESP 16; TEMP 36.6; O2SAT 99; BMI 22.1
[2022-01-09 08:29] VITALS: BP 151/91; PULSE 84; RESP 16; O2SAT 100
--- NOTE | 2022-01-09 08:29 | W.ED.NAVMDI ---
HPI - Nausea/Vomiting/Diarrhea General: Chief complaint: Nausea/Vomiting/Diarrhea Stated complaint: V/D Time Seen by Provider: 01/09/22 08:28 Source: patient Mode of arrival: ambulatory Limitations: no limitations History of Present Illness: 46-year-old female presents to the ER today for continued nausea vomiting and diarrhea x1 week. Patient reports this all started after she had her back surgery last week. Patient reports at that time she stopped her Suboxone and was put on hydrocodone. She was seen 2 days ago in the ER for severe nausea and vomiting and diarrhea. Patient reports at that time the diarrhea was pure water. She reports this morning it did have some color but that was likely because she tried eating yesterday. Patient reports after eating she vomited profusely. She reports constant nausea and no appetite. Patient reports she took Zofran all day yesterday with no improvement. Patient does have a history of diabetes and reports it is relatively well controlled. She reports she takes a sulfonylurea and metformin daily and occasionally Victoza as needed. Patient reports she has not taken Victoza in the last week. Patient also reports that a couple of weeks ago she was diagnosed with H. pylori after having a colonoscopy. At that time patient was given antibiotics for the H. pylori. She reports she did finish that treatment. Patient denies fever or chills. Denies any urinary symptoms. Review of Systems General: Reports: 10 or more systems reviewed and unremarkable except in HPI and below PFSH ED PFSH: Medical History Anxiety and depression Chronic hip pain Chronic low back pain with left-sided sciatica Chronic pruritus Dehydration, mild Diabetes type 2, uncontrolled Diabetic neuropathy Dyslipidemia Elevated transaminase level GERD (gastroesophageal reflux disease) History of rheumatoid arthritis Hx of hepatitis C treatment with Dr. Morgan ~1999 Hypothyroidism Insomnia disorder, with other sleep disorder, recurrent Insulin dependent diabetes mellitus Marijuana use Nicotine dependence, cigarettes, uncomplicated JOSE (obstructive sleep apnea) per sleep study 2010, CPAP of 13 recommended at that time, no longer with machine Osteoarthritis involving multiple joints on both sides of body Paroxysmal SVT (supraventricular tachycardia) PTSD (post-traumatic stress disorder) Right flank pain, chronic Scoliosis associated with other condition Supraventricular tachycardia (~04/2020) identified during ED visit 04/2020, treated with 6mg adenosine with conversion to sinus Surgical History History of hysterectomy (~2011) also Kimberly urethral plication History of incision and drainage (~2013) right upper extremity and R lower extremity History of tubal ligation History of umbilical hernia repair (~2011) Hx of cataract surgery bilateral eye Family History Father Diabetes Mother Diabetes Grandfather Pacemaker Denies family history of Stroke Social History Smoking and tobacco status: current every day smoker (1 pack every 3-4 days) cigarettes Packs smoked per day: 0.5 Second hand smoke exposure: Yes Alcohol intake: never Marital status: Life Partner Number of children: 2 Number of grandchildren: 0 Current occupational status: unemployed Physical Exam Const: COMMON NORMALS: average body habitus, patient oriented x3, no limitations and alert HENMT: COMMON NORMALS: normocephalic, atraumatic, external ears normal, Normal nasal mucous membranes and turbinates present and moist oral mucous membranes HEAD & SCALP: normocephalic and atraumatic NOSE: Normal nasal mucous membranes and turbinates present EXTERNAL EAR: Yes external ears normal Eye: COMMON NORMALS: conjunctivae normal CONJUNCTIVA: Yes conjunctivae normal Lymph: LYMPHATIC: no lymphadenopathy noted Resp: COMMON NORMALS: normal respiratory effort, No retractions and clear to auscultation bilaterally AUSCULTATION: clear to auscultation bilaterally Cardio: COMMON NORMALS: regular rate, regular rhythm and No murmurs present (Cardio) RATE: regular rate RHYTHM: regular rhythm GI: COMMON NORMALS: Normal to inspection, nondistended, normoactive bowel sounds present and Soft to palpation PALPATION: Yes Soft to palpation and Yes Tenderness to palpation present (GI) Details: other (epigastric and periumbilical) : COMMON NORMALS: Yes no CVA tenderness BLADDER/KIDNEY EXAM: Yes no CVA tenderness Back/Pelvis: COMMON NORMALS: no CVA tenderness Extremity: COMMON NORMALS: normal to inspection and full ROM Neuro: COMMON NORMALS: patient oriented x3 SENSORIUM/ORIENTATION: Yes alert Psych: COMMON NORMALS: mental status grossly normal, Normal thought process present and cooperative THOUGHT PROCESS: Normal thought process present Skin: COMMON NORMALS: no rashes or lesions noted and no wounds GENERAL SKIN EXAM: no rashes or lesions noted Course ED course: 46-year-old female with history of type 2 diabetes and recent back surgery presents to the ER with nausea, vomiting, diarrhea x1 week. Patient reports prior to the surgery she had some nausea but did not have the vomiting she is experiencing now. Patient reports this all started after surgery. She has been taking Zofran [id number] and is still having profuse vomiting and nausea. Patient reports the diarrhea was pure water until the last 24 hours however it is still watery just a different color. Patient denies any fever or chills. Denies any recent illness. Patient did have a diagnosis of H. pylori within the last couple weeks and reports finishing treatment for that. Patient denies a history of gastroparesis. Patient denies any fever or chills. Denies any recent illness. We will start with lab work at this time. We will also get stool samples and a repeat H. pylori through the stool. Patient did have a CT scan 2 days ago which was normal. I would like to see labs before ordering any type of repeat imaging. Reevaluation(s): Reevaluation #1: Upon reevaluation, patient is still nauseated and having pain. She also discloses that she has not taken her hydrocodone for several days. Patient reports she is also not on the Suboxone. I feel that some of the symptoms are related to some withdrawal. We will give her something for pain here but she needs to continue her home medications as prescribed. I recommend she contact her doctor tomorrow for the Suboxone. She does have some at home and likely needs to restart it but it needs to be in conjunction with a decision made between the prescribing doctor and her. CT is normal. Findings were discussed with patient. Patient has a slightly elevated white count. Her urine was very contaminated however there is some irritation noted on CT. We will go ahead and treat for UTI at this time. Patient given Rocephin IV in the ER and we will treat at home with Cipro. Time: 11:09 Vital Signs: Vital signs: Vital Signs Temperature 97.9 F 01/09/22 08:18 Pulse Rate 81 01/09/22 11:46 Respiratory Rate 16 01/09/22 11:46 Blood Pressure 150/88 01/09/22 11:46 Pulse Oximetry 100 01/09/22 11:46 Oxygen Delivery Me thod 01/09/22 09:19 MDM - Nausea/Vomiting/Diarrhea Medical Decision Making 46-year-old female with history of type 2 diabetes and recent back surgery presents to the ER with nausea, vomiting, diarrhea x1 week. Patient reports prior to the surgery she had some nausea but did not have the vomiting she is experiencing now. Patient reports this all started after surgery. She has been taking Zofran [id number] and is still having profuse vomiting and nausea. Patient reports the diarrhea was pure water until the last 24 hours however it is still watery just a different color. Patient denies any fever or chills. Denies any recent illness. Patient did have a diagnosis of H. pylori within the last couple weeks and reports finishing treatment for that. Patient denies a history of gastroparesis. Patient denies any fever or chills. Denies any recent illness. We will start with lab work at this time. We will also get stool samples and a repeat H. pylori through the stool. We went ahead and CT patient given the slightly elevated white count from [address] is mostly unchanged other than some bladder changes. Patient reports she is also not on the Suboxone. I feel that some of the symptoms are related to some withdrawal. We will give her something for pain here but she needs to continue her home medications as prescribed. I recommend she contact her doctor tomorrow for the Suboxone. She does have some at home and likely needs to restart it but it needs to be in conjunction with a decision made between the prescribing doctor and her. CT is normal. Findings were discussed with patient. Patient has a slightly elevated white count. Her urine was very contaminated however there is some irritation noted on CT. We will go ahead and treat for UTI at this time. Patient given Rocephin IV in the ER and we will treat at home with Cipro. Follow-up with PCP as discussed. Return to the ER with new or worsening symptoms. Lab Data : 01/09/22 08:51 01/09/22 09:30 Radiology Impressions Abdomen/Pelvis CT 01/09/22 10:04 IMPRESSION: 1. No significant change from prior exam. 2. No signs of bowel obstruction or ileus. 3. Persistent circumferential bladder wall thickening without significant surrounding inflammatory changes. Recommend correlation with urinalysis. 4. Expected postsurgical changes at L4-L5 and L5-S1 with no significant postoperative abnormality identified. Laboratory Results WBC 14.9 10^3/uL (4.0-10.0) H 01/09/22 08:51 RBC 5.13 10^6/uL (4.1-5.3) 01/09/22 08:51 Hgb 14.7 g/dL (11.5-15.3) 01/09/22 08:51 Hct 42.0 % (37.0-47.0) 01/09/22 08:51 MCV 81.9 fl (81-99) 01/09/22 08:51 MCH 28.7 pg (28.0-34.0) 01/09/22 08:51 MCHC 35.0 g/dL (30.0-36.0) 01/09/22 08:51 RDW 12.9 % (12.1-15.1) 01/09/22 08:51 Plt Count 400 10^3/cmm (130-400) 01/09/22 08:51 MPV 8.9 fL (7.4-10.4) 01/09/22 08:51 Neut % (Auto) 73.9 % 01/09/22 08:51 Lymph % (Auto) 16.4 % 01/09/22 08:51 [place] % (Auto) 8.4 % 01/09/22 08:51 Eos % (Auto) 0.2 % 01/09/22 08:51 Baso % (Auto) 0.6 % 01/09/22 08:51 Neut # (Auto) 10.97 10^3/uL (1.8-7.7) H 01/09/22 08:51 Lymph # (Auto) 2.4 10^3/uL (0.8-4.8) 01/09/22 08:51 [place] # (Auto) 1.3 10^3/uL (0.2-0.9) H 01/09/22 08:51 Eos # (Auto) 0.0 10^3/uL (0.0-0.8) 01/09/22 08:51 Baso # (Auto) 0.1 10^3/uL (0.0-0.1) 01/09/22 08:51 Nucleated RBC % (auto) 0 % 01/09/22 08:51 Nucleated RBCs # 0.0 /100WBC 01/09/22 08:51 Sodium 134 mmol/L (136-145) L 01/09/22 09:30 Potassium 3.7 mmol/L (3.5-5.1) 01/09/22 09:30 Chloride 96 mmol/L (98-107) L 01/09/22 09:30 Carbon Dioxide 26 mmol/L (22-29) 01/09/22 09:30 Anion Gap 15.7 (5-19) 01/09/22 09:30 BUN 9 mg/dL (6-20) 01/09/22 09:30 Creatinine 0.5 mg/dL (0.5-0.9) 01/09/22 09:30 GFR Calculation 131.7 mL/min (90-130) H 01/09/22 09:30 Glucose 248 mg/dL (65-115) H 01/09/22 09:30 Calculated Osmolality 285 mOsm/kg (285-295) 01/09/22 09:30 Calcium 9.6 mg/dL (8.5-10.5) 01/09/22 09:30 Total Bilirubin 0.4 mg/dL (0.15-1.2) 01/09/22 09:30 AST 30 U/L (0-32) 01/09/22 09:30 ALT 44 U/L (0-33) H 01/09/22 09:30 Alkaline Phosphatase 121 U/L (35-105) H 01/09/22 09:30 Total Protein 7.4 g/dL (6.6-8.7) 01/09/22 09:30 Albumin 4.1 g/dL (3.5-5.2) 01/09/22 09:30 Globulin 3.3 g/dL (1.3-4.6) 01/09/22 09:30 Urine Color Yellow (Yellow) 01/09/22 08:40 Urine Appearance Hazy (CLEAR) A 01/09/22 08:40 Urine pH 6 (5-7) 01/09/22 08:40 Ur Specific [place] 1.015 (1.005-1.030) 01/09/22 08:40 Urine Protein 1+ (Negative) H 01/09/22 08:40 Urine Glucose (UA) 2+ (Normal) H 01/09/22 08:40 Urine Ketones 2+ (Negative) H 01/09/22 08:40 Urine Blood Trace (Negative) H 01/09/22 08:40 Urine Nitrate Negative (Negative) 01/09/22 08:40 Urine Bilirubin 1+ (Negative) H 01/09/22 08:40 Urine Urobilinogen 1 mg/dL (Negative) H 01/09/22 08:40 Ur Leukocyte Esterase 1+ (Negative) H 01/09/22 08:40 Urine RBC 0-4 /hpf (0-2) H 01/09/22 08:40 Urine WBC 0-4 /hpf (0-5) H 01/09/22 08:40 Ur Squamous Epith Cells 15-25 /hpf (0-5) H 01/09/22 08:40 Amorphous Sediment Not Reportable 01/09/22 08:40 Urine Bacteria 1+ /hpf (NONE) H 01/09/22 08:40 Urine Mucus 3+ /hpf 01/09/22 08:40 Urine Yeast 1+ /hpf H 01/09/22 08:40 Critical Care Time Critical Care Time: Critical Care Time: No Discharge Plan Discharge Patient Disposition: Home Clinical Impression: UTI (urinary tract infection), Nausea vomiting and diarrhea Condition: Stable Prescriptions: New Cipro 250 mg tablet 250 mg PO BID 5 Days Qty: 10 0RF No Action metformin 500 mg tablet 1,000 mg PO BID 30 Days Qty: 120 5RF Rx Instructions: 340 B medication buprenorphine-naloxone 8-2 mg film 0.5 film buccal TID hydroxyzine HCl 50 mg tablet 50 mg PO Q8H PRN (Reason: itching) Qty: 90 0RF glipizide 10 mg tablet extended release 24hr 10 mg PO BID Qty: 60 5RF mirtazapine 30 mg tablet 30 mg PO .qhs Qty: 30 2RF zolpidem [Ambien] 10 mg tablet 10 mg PO .qhs 30 Days Qty: 30 3RF (DME) Diabetic Shoes with 3 inserts See Rx Instructions .Route .MEDSUPPLY Qty: 1 0RF Rx Instructions: As directed (DME) lancets [OneTouch Delica Plus Lancet] 30 gauge misc See Rx Instructions .ROUTE .COMPLEX Qty: 100 1RF Dose Instruction: USE DIRECTED TO TEST BLOOD SUGAR ONCE DAILY. Rx Instructions: USE DIRECTED TO TEST BLOOD SUGAR ONCE DAILY. hyoscyamine sulfate [Levsin/SL] 0.125 mg tablet, sublingual 0.125 mg sublingual TID PRN (Reason: dyspepsia) 30 Days Qty: 30 2RF (DME) pen needle, diabetic [1st Tier Unifine Pentips] 32 gauge x 5/32 needle See Rx Instructions .Route Qty: 50 12RF Rx Instructions: As directed, use with victoza to administer, daily. clonazepam 0.5 mg tablet 0.25 mg PO DAILY 30 Days Qty: 45 2RF levothyroxine 50 mcg tablet See Rx Instructions .ROUTE .COMPLEX Qty: 30 5RF Dose Instruction: TAKE 1 TABLET BY MOUTH EVERY DAY IN THE MORNING Rx Instructions: TAKE 1 TABLET BY MOUTH EVERY DAY IN THE MORNING gabapentin 300 mg capsule See Rx Instructions .ROUTE .COMPLEX Qty: 240 5RF Dose Instruction: TAKE THREE CAPSULES BY MOUTH EVERY MORNING, TAKE TWO CAPSULES BY MOUTH AT NOON, TAKE THREE CAPSULES EVERY EVENING FOR CHRONIC HIP/BACK PAIN Rx Instructions: TAKE THREE CAPSULES BY MOUTH EVERY MORNING, TAKE TWO CAPSULES BY MOUTH AT NOON, TAKE THREE CAPSULES EVERY EVENING FOR CHRONIC HIP/BACK PAIN ondansetron HCl 4 mg tablet See Rx Instructions .ROUTE .COMPLEX Qty: 30 1RF Dose Instruction: TAKE ONE TABLET BY MOUTH EVERY EIGHT HOURS NEEDED FOR NAUSEA AND VOMITING Rx Instructions: TAKE ONE TABLET BY MOUTH EVERY EIGHT HOURS NEEDED FOR NAUSEA AND VOMITING clarithromycin 500 mg tablet 500 mg PO TID 14 Days Qty: 42 0RF metronidazole 500 mg tablet 500 mg PO BID 14 Days Qty: 28 0RF pantoprazole [Protonix] 40 mg tablet,delayed release (DR/EC) 40 mg PO BID 14 Days Qty: 28 0RF buspirone 30 mg tablet 15 mg PO BID Qty: 60 3RF omeprazole 20 mg capsule,delayed release(DR/EC) 20 mg PO DAILY Victoza 3-Navneet 0.6 mg/0.1 mL (18 mg/3 mL) pen injector 1.8 mg SUBCUT DAILY PRN (Reason: high blood sugar) hydrocodone-acetaminophen 5-325 mg tablet 1 - 2 tab PO .Q4-6H Qty: 40 0RF ondansetron 4 mg tablet,disintegrating 4 mg PO Q8H PRN (Reason: nausea and vomiting) 5 Days Qty: 14 0RF Discharge Orders: Discharge ED (Routine); Ordered 01/09/22 Ordered By: uLbna Haas Referrals: Israel Otero MD [Primary Care Provider] - Discharge Diet: As Directed Discharge Activity: Resume usual activity Patient Instructions: Opioid Safety Activity Restrictions/Additional Instructions: Continue home medications as previously prescribed. Bananas, rice, applesauce, toast recommended- [place] diet recommended. Take Cipro as prescribed. Follow-up with PCP in 2 to 3 days. Contact Suboxone was specialist to discuss restarting. Return to the ER with new or worsening symptoms. Coding Level of Care Code ED Scrap Drop Crane Operator for Chg Fwd Exam Comprehensive
[2022-01-09 08:58] LABS: Basophils # 0.1 10^3/uL (0.0-0.1); Basophils % 0.6 %; Eosinophils % 0.2 %; Hemoglobin 14.7 g/dL (11.5-15.3); Lymphocytes # 2.4 10^3/uL (0.8-4.8); Lymphocytes % 16.4 %; Mean Corpuscular Hemoglobin 28.7 pg (28.0-34.0); Mean Corpuscular Volume 81.9 fl (81-99); Mean Platelet Volume 8.9 fL (7.4-10.4); Monocytes # 1.3 10^3/uL (0.2-0.9); Monocytes % 8.4 %; Neutrophils # 10.97 10^3/uL (1.8-7.7); Neutrophils % 73.9 %; Nucleated Red Blood Cells % 0 %; Platelet Count 400 10^3/cmm (130-400); Red Blood Count 5.13 10^6/uL (4.1-5.3); Red Cell Distribution Width 12.9 % (12.1-15.1); White Blood Count 14.9 10^3/uL (4.0-10.0)
[2022-01-09] MEDS: promethazine 25 mg Tablet PO (08:58)
[2022-01-09 09:18] LABS: Add Urine Microscopic? YES; Bilirubin Urine 1+ (Negative); Blood Urine Trace (Negative); Glucose Urine UA 2+ (Normal); Ketones Urine 2+ (Negative); Leukocyte Esterase Urine 1+ (Negative); Nitrate Urine Negative (Negative); Protein Urine 1+ (Negative); RBC Urine 0-4 /hpf (0-2); Specific Gravity, Urine 1.015 (1.005-1.030); Urine Appearance Hazy (CLEAR); Urine Color Yellow (Yellow); Urobilinogen Urine 1 mg/dL (Negative); WBC Urine 0-4 /hpf (0-5); pH Urine 6 (5-7)
[2022-01-09 09:19] VITALS: BP 148/83; PULSE 82; RESP 16; O2SAT 99
[2022-01-09 09:22] LABS: Bacteria Urine 1+ /hpf; Mucus Urine 3+ /hpf; Squamous Epithelial Cell Urine 15-25 /hpf (0-5)
[2022-01-09 09:23] LABS: Add Urine Culture? No
[2022-01-09] MEDS: ketorolac 30 mg/mL INJ IVP (09:40)
--- NOTE | 2022-01-09 10:04 | CTR_ITS ---
PROCEDURE INFORMATION: Exam: CT Abdomen And Pelvis With Contrast Exam date and time: 01/09/2022 10:16 AM Age: 46 years old Clinical indication: Nausea and vomiting; Abdominal pain; Prior surgery; Surgery date: 3-7 days post-operative; Surgery type: Back; Additional info: Abdominal pain, nausea, vomiting, diarrhea TECHNIQUE: Imaging protocol: Computed tomography of the abdomen and pelvis with contrast. Radiation optimization: All CT scans at this facility use at least one of these dose optimization techniques: automated exposure control; mA and/or kV adjustment per patient size (includes targeted exams where dose is matched to clinical indication); or iterative reconstruction. Contrast material: OMNI 350; Contrast volume: 80 ml; Contrast route: INTRAVENOUS (IV); COMPARISON: CT abdomen pelvis w con* [id number] 01/07/2022 12:46 PM RADIATION DOSE METRICS: Total DLP (mGy-cm): 378.27 FINDINGS: Lungs: The visualized lung bases demonstrate no focal airspace opacification or pleural effusion. Heart: The visualized heart is within normal limits for size. There is no evidence of pericardial abnormality. Liver: Area of hypoattenuation along the anterior margin of the liver adjacent to the falciform ligament consistent with focal fatty infiltration. The liver is normal in size and contour. Round hypoattenuating 10 mm cyst again noted adjacent to the left portal vein and left hepatic vein and hepatic segment 8 (series 4, image 19). Gallbladder and bile ducts: The gallbladder is distended with normal wall thickness and does not demonstrate calcified gallstones. No intra- or extra-hepatic biliary ductal dilatation. Pancreas: The pancreas appears normal. Spleen: Small splenule noted. The spleen appears unremarkable. Splenic granulomas noted. Adrenal glands: The adrenals appear normal. Kidneys and ureters: The kidneys enhance symmetrically and empty into non-dilated ureters. Stomach and bowel: The stomach is unremarkable. The small bowel loops are not abnormally dilated. The large bowel loops are not abnormally dilated. Appendix: The appendix appears normal. Intraperitoneal space: No ascites or significant fluid collection. Vasculature: The aorta is nonaneurysmal. The IVC appears normal. Lymph nodes: There are no enlarged lymph nodes. Urinary bladder: The urinary bladder is partially distended and demonstrates circumferential wall thickening measuring up to 12 mm in thickness. No definitive surrounding inflammatory changes identified. This is similar to prior exam. Reproductive: The uterus is surgically absent. Bones/joints: Mild multilevel degenerative disc disease noted. Postsurgical changes on the left at L4-L5 and L5-S1, including minimal subcutaneous emphysema and fat stranding. No fluid collections identified. Soft tissues: See Bones/joints finding. CT/CT abdomen pelvis w con* [id number] IMPRESSION: 1. No significant change from prior exam. 2. No signs of bowel obstruction or ileus. 3. Persistent circumferential bladder wall thickening without significant surrounding inflammatory changes. Recommend correlation with urinalysis. 4. Expected postsurgical changes at L4-L5 and L5-S1 with no significant postoperative abnormality identified.
[2022-01-09 10:13] LABS: Alanine Aminotransferase 44 U/L (0-33); Albumin Level 4.1 g/dL (3.5-5.2); Alkaline Phosphatase 121 U/L (35-105); Anion Gap 15.7 (5-19); Aspartate Amino Transferase 30 U/L (0-32); Blood Urea Nitrogen 9 mg/dL (6-20); Calcium 9.6 mg/dL (8.5-10.5); Carbon Dioxide 26 mmol/L (22-29); Chloride 96 mmol/L (98-107); Globulin 3.3 g/dL (1.3-4.6); Glomerular Filtration Rate 131.7 mL/min (90-130); Glucose 248 mg/dL (65-115); Osmolality Calculated 285 mOsm/kg (285-295); Potassium 3.7 mmol/L (3.5-5.1); Sodium 134 mmol/L (136-145); Total Bilirubin 0.4 mg/dL (0.15-1.2); Total Protein 7.4 g/dL (6.6-8.7)
[2022-01-09] MEDS: iohexol 350 mg/mL 100 mL Btl IV (10:20)
[2022-01-09] MEDS: ondansetron 2 mg/ML SDV 2 mL 4 MG IVP (10:56)
[2022-01-09] MEDS: cefTRIAXone 1,000 MG in sodium chloride 0.9% (plus) 50 ML 100 MG IV (11:00)
[2022-01-09] MEDS: morphine 4 mg/mL SDV 1 mL 6 MG IVP (11:21)
[2022-01-09 11:46] VITALS: BP 150/88; PULSE 81; RESP 16; O2SAT 100
== END 2022-01-09 11:45 | disposition home or self-care (01) ==
PROVIDERS: Emergency Provider Physician Assistant; PCP Family Medicine Adult Medicine
DX: N39.0 Urinary tract infection, site not specified (principal); R11.2 Nausea with vomiting, unspecified; R19.7 Diarrhea, unspecified; Z79.84 Long term (current) use of oral hypoglycemic drugs; F17.210 Nicotine dependence, cigarettes, uncomplicated; E11.40 Type 2 diabetes mellitus with diabetic neuropathy, unspecified; E78.5 Hyperlipidemia, unspecified; Z86.19 Personal history of other infectious and parasitic diseases
CPT/HCPCS: 36415; 74177; 80053; 81001; 85025; 87338; 87493; 87506; 96365; 96375; 99285; J0696; J1885; J2270; J2405; Q0169; Q9967

== ENCOUNTER → 2022-01-13 15:45 | Outpatient (BNVA) | payer MEDICAID, SELFPAY | PROVIDERS: PCP Family Medicine Adult Medicine; Visit Provider Physician Assistant | DX: Z47.89 Encounter for other orthopedic aftercare (principal); Z98.890 Other specified postprocedural states | CPT/HCPCS: 99024 ==

== ENCOUNTER → 2022-01-17 13:06 | Outpatient (BNVA) | payer MEDICAID, SELFPAY | PROVIDERS: PCP Family Medicine Adult Medicine; Visit Provider Internal Medicine Cardiovascular Disease | DX: R00.2 Palpitations (principal); E11.43 Type 2 diabetes mellitus with diabetic autonomic (poly)neuropathy; K31.84 Gastroparesis; Z79.84 Long term (current) use of oral hypoglycemic drugs; F17.210 Nicotine dependence, cigarettes, uncomplicated; E11.65 Type 2 diabetes mellitus with hyperglycemia | CPT/HCPCS: 99213 ==

== ENCOUNTER 2022-01-18 07:19 | Outpatient (CLI) | payer MEDICAID, SELFPAY ==
--- NOTE | 2022-01-18 08:00 | NM_ITS ---
WS: [id number] NUCLEAR MEDICINE GASTRIC STUDY CLINICAL INFORMATION: nausea and vomiting. TECHNIQUE: Following oral ingestion of cooked egg mixed with 1.08 mCi technetium 99m sulfur colloid, anterior images of the stomach were obtained over the course of 90 minutes. Activity curve was perfor med over the course of 90 minutes with linear regression analysis. COMPARISON: CT January 09, 2022 FINDINGS: Ingestion of cooked egg mixture technetium labeled sulfur colloid. Less than 10% emptying at 1 hour. 48% emptying at 2 hours. T1 half emptying = 144 minutes NM/[place] [id number] IMPRESSION: Initial delayed gastric emptying with only 6% emptying at 1 hour. Improved empt gely by 2 hours with 48% emptying *Normal median T1 half 90 minutes for solid egg meal (45-110 minutes). Delayed gastric retention is defined as 90% retained at 1 hour, 60% at 2 hour s, 30% at 3 hours, and 10% at 4 hours (normal percent gastric retention is 37-9 0% at 1 hour, 30-60% at 2 hours, and 0-10% at 4 hours).
== END 2022-01-18 07:20 | disposition home or self-care (01) ==
LOC: RAD 07:21
PROVIDERS: PCP Family Medicine Adult Medicine; Visit Provider Surgery
DX: R11.2 Nausea with vomiting, unspecified
CPT/HCPCS: 78264; A9541

== ENCOUNTER 2022-03-01 09:13 | Outpatient (CLI) | payer MEDICAID, SELFPAY ==
--- NOTE | 2022-03-01 10:00 | NM_ITS ---
WS: [id number] NUCLEAR MEDICINE HIDA SCAN WITH GALLBLADDER EJECTION FRACTION HISTORY: abdominal pain COMPARISON: CT 01/09/2022 TECHNIQUE: The patient was intravenously injected with 8.1 mCi of TC99m Mebrofenin. Immediate imaging over the right upper quadrant was followed by 5 minute image and additional images for a total of 60 minutes. Normal uptake of radiotracer throughout the liver. Activity identified in the gallbladder at 10 minutes and well distended by 60 minutes. Activity in the proximal small bowel was seen by 60 minutes. Good washout of the radiotracer from the liver by 60 minutes. The patient then drank 8 ounces of Ensure Plus. Ejection fraction at 60 minutes was 72%. Normal GB ej ection fraction is 35-75%. Post fatty meal symptoms: None. NM/NM hepatobiliary w phar* [id number] IMPRESSION: 1. Normal HIDA scan. 2. Normal gallbladder ejection fraction.
== END 2022-03-01 09:14 | disposition home or self-care (01) ==
LOC: RAD 09:14
PROVIDERS: PCP Family Medicine Adult Medicine; Visit Provider Surgery
DX: R10.9 Unspecified abdominal pain (principal)
CPT/HCPCS: 78227; A9537

== ENCOUNTER → 2022-03-18 10:06 | Outpatient (BNVA) | payer MEDICAID, SELFPAY | PROVIDERS: PCP Family Medicine Adult Medicine; Visit Provider Psychiatry & Neurology Psychiatry | DX: F15.21 Other stimulant dependence, in remission (principal); F11.20 Opioid dependence, uncomplicated; F33.1 Major depressive disorder, recurrent, moderate; F41.1 Generalized anxiety disorder; F12.20 Cannabis dependence, uncomplicated; Z79.899 Other long term (current) drug therapy | CPT/HCPCS: 80307 ==

== ENCOUNTER 2022-03-31 15:02 | Observation (INO) | payer MEDICAID, SELFPAY ==
[2022-03-31] VITALS (10 sets, daily range): BP systolic 132–175; BP diastolic 76–104; PULSE 78–91; RESP 18–22; TEMP 36.4–36.8; O2SAT 95–100
--- NOTE | 2022-03-31 15:05 | ED_ITS ---
HPI - Abdominal Pain General: Chief Complaint: Abdominal Pain Stated Complaint: ABD Pain Time Seen by Provider: 03/31/22 15:05 History of Present Illness: Ms. jean is a 46-year-old lady with history of COPD, tobaccoism, diabetes with gastroparesis, thyroid disorder, dyslipidemia, history of substance abuse presenting to the emergency department due to abdominal symptoms. Reports approximately 3 to 4 days of symptoms including periumbilical pain which feels sharp, nausea, vomiting, diarrhea. Symptom intensity has persisted and is moderate to severe. No other specific changes in health, exacerbating, or alleviating factors identified. Onset (ago): day(s) Pain Consistency: constant Location: Periumbilical Severity: severe Migration to: no migration Exacerbating factors: eating, vomiting and movement Relieving factors: nothing Associated Symptoms: Reports chills, diarrhea, nausea and vomiting Review of Systems General: Reports: 10 or more systems reviewed and unremarkable except in HPI and below Const: Reports: chills GI: Reports: nausea, vomiting and diarrhea PFSH ED PFSH: Medical History Anxiety and depression Bilateral bunions COPD (chronic obstructive pulmonary disease) with emphysema Dehydration, mild Diabetes type 2, uncontrolled Diabetic neuropathy Dyslipidemia Elevated transaminase level Gastritis GERD (gastroesophageal reflux disease) Hemochromatosis carrier History of rheumatoid arthritis Hx of hepatitis C treatment with Dr. Morgan ~1999 Hypothyroidism Insomnia disorder, with other sleep disorder, recurrent Insulin dependent diabetes mellitus Iron overload Lumbar disc disease with radiculopathy Marijuana use Nicotine dependence, cigarettes, uncomplicated JOSE (obstructive sleep apnea) per sleep study 2010, CPAP of 13 recommended at that time, no longer with machine Osteoarthritis involving multiple joints on both sides of body Paroxysmal SVT (supraventricular tachycardia) Psychiatric care PTSD (post-traumatic stress disorder) Right flank pain, chronic Scoliosis associated with other condition Smoker Supraventricular tachycardia (~04/2020) identified during ED visit 04/2020, treated with 6mg adenosine with convers ion to sinus Surgical History History of hysterectomy (~2011) also Kimberly urethral plication History of incision and drainage (~2013) right upper extremity and R lower extremity History of tubal ligation History of umbilical hernia repair (~2011) Hx of cataract surgery bilateral eye Family History Father Diabetes Mother Diabetes Grandfather Pacemaker Denies family history of Stroke Social History Smoking and tobacco status: current every day smoker cigarettes Packs smoked per day: 0.5 Years cigarettes smoked: 33 Quit status (tobacco): has tried quititng Number of times tried to quit tobacco: 5 Second hand smoke exposure: Yes Smoking risk assessment/counseling performed?: No Alcohol intake: former Desire information about alcohol rehabilitation?: No Counseling given: No Desire information about substance/drug rehabilitation?: No Counseling given: No Caregiver/support person: No Lives independently: Yes Household members: spouse Housing: House Marital status: Life Partner Number of children: 2 Number of grandchildren: 0 Highest education level completed: High School Graduate service: No Current occupational status: unemployed Pets and animals: Yes Pets & animals: dog(s) History of recent travel: No Current gender identity: Female Sirena/Scientologist: Anabaptist Physical Exam Const: COMMON NORMALS: alert GENERAL APPEARANCE: cooperative and well developed HENMT: COMMON NORMALS: normocephalic and atraumatic HEAD & SCALP: normocephalic and atraumatic Eye: COMMON NORMALS: conjunctivae normal CONJUNCTIVA: Yes conjunctivae normal SCLERA: sclerae normal Neck/C-Spine: COMMON NORMALS: supple GENERAL: Yes trachea midline Resp: COMMON NORMALS: clear to auscultation bilaterally EFFORT & INSPECTION: Yes able to speak in complete sentences and Yes tachypneic AUSCULTATION: clear to auscultation bilaterally Cardio: COMMON NORMALS: regular rate and regular rhythm RATE: regular rate RHYTHM: regular rhythm GI: COMMON NORMALS: Soft to palpation PALPATION: Yes Soft to palpation, Yes Tenderness to palpation present (GI), No Guarding due to palpation present (GI) and No Rigid due to palpation Extremity: GENERAL: Yes normal exam except as noted and No edema Neuro: COMMON NORMALS: moves all extremities SENSORIUM/ORIENTATION: Yes alert and No Orientation impaired Psych: COMMON NORMALS: mental status grossly normal and Normal thought process present THOUGHT PROCESS: Normal thought process present Course Vital Signs: Vital signs: Vital Signs Temperature 98.1 F 04/02/22 07:07 Pulse Rate 81 04/02/22 07:07 Respiratory Rate 16 04/02/22 07:07 Blood Pressure 160/100 04/02/22 07:21 Pulse Oximetry 97 04/02/22 07:07 Oxygen Delivery Me thod 04/02/22 07:07 MDM - Abdominal Pain Medical Decision Making 38-year-old lady with likely history of gastroparesis presenting to the emergency department due to abdominal pain with nausea and vomiting. Patient is uncomfortable with abdominal palpation however no evidence of acute surgical abdomen. Labs notable for leukocytosis and hemoconcentration. Metabolic panel with marked evidence of dehydration. Mild transaminitis present. ABG interpreted. CT with enteroenteric intussusception with abnormal enhancement of the segment. Discussed with general surgery who recommended admission for observation and will be a consult service. Patient somewhat improved with antiemetic, IV fluids, analgesia. Most likely etiology of patient symptoms is multifactorial with concerning finding of enteroenteric intussusception though I believe that gastroparesis is also likely large component. The results of ED evaluation were discussed with the patient including plan for admission due to requirement for level of care not available if discharged to prevent significant worsening/deterioration. Patient agreeable with plan. Discussed with hospitalist service who was agreeable to admit patient. Medical Records I reviewed the patient's medical records. Lab Data I reviewed the patient's lab results. 04/02/22 02:20 04/02/22 02:20 Labs/Radiology: Radiology Impressions Abdomen/Pelvis CT 03/31/22 16:41 IMPRESSION: 1. Entero enteric intussusception in the right pelvis with intussusceptium nonenhancing. Typically these are intermittent findings but can cause abdominal pain. The lack of enhancement is concerning for possible ischemia. No evidence of obstruction nor adjacent inflammatory changes. 2. There is nonspecific urinary bladder wall thickening, felt to be due to under distension. Consider urinalysis. ADDENDUM: 03/31/22 [id number] THIS REPORT CONTAINS FINDINGS THAT MAY BE CRITICAL TO PATIENT CARE. The findings were verbally communicated via telephone conference at 5:35 PM BENZENE STILL UTILITY OPERATOR on 03/31/2022 with Matthew Shea. The findings were acknowledged and understood. Abdomen X-Ray 04/01/22 08:25 IMPRESSION: 1. Nonobstructive bowel gas pattern. 2. Contrast noted throughout the colon and distally in the rectum. Laboratory Results WBC 14.8 10^3/uL (4.0-10.0) H 03/31/22 15:00 RBC 5.57 10^6/uL (4.1-5.3) H 03/31/22 15:00 Hgb 16.1 g/dL (11.5-15.3) H 03/31/22 15:00 Hct 45.4 % (37.0-47.0) 03/31/22 15:00 MCV 81.5 fl (81-99) 03/31/22 15:00 MCH 28.9 pg (28.0-34.0) 03/31/22 15:00 MCHC 35.5 g/dL (30.0-36.0) 03/31/22 15:00 RDW 13.1 % (12.1-15.1) 03/31/22 15:00 Plt Count 456 10^3/cmm (130-400) H 03/31/22 15:00 MPV 9.1 fL (7.4-10.4) 03/31/22 15:00 Neut % (Auto) 85.9 % 03/31/22 15:00 Lymph % (Auto) 9.9 % 03/31/22 15:00 [place] % (Auto) 3.2 % 03/31/22 15:00 Eos % (Auto) 0.0 % 03/31/22 15:00 Baso % (Auto) 0.2 % 03/31/22 15:00 Neut # (Auto) 12.68 10^3/uL (1.8-7.7) H 03/31/22 15:00 Lymph # (Auto) 1.5 10^3/uL (0.8-4.8) 03/31/22 15:00 [place] # (Auto) 0.5 10^3/uL (0.2-0.9) 03/31/22 15:00 Eos # (Auto) 0.0 10^3/uL (0.0-0.8) 03/31/22 15:00 Baso # (Auto) 0.0 10^3/uL (0.0-0.1) 03/31/22 15:00 Nucleated RBC % (auto) 0 % 03/31/22 15:00 Nucleated RBCs # 0.0 /100WBC 03/31/22 15:00 Specimen Type Arterial 03/31/22: Sample Site Radial, left 03/31/22: ABG pH 7.57 (7.35-7.45) H* 03/31/22: ABG pCO2 18.6 mmHg (35-45) L* 03/31/22: ABG pO2 113.0 mmHg (80.0-100.0) H 03/31/22: ABG HCO3 17.0 mmol/L (22-26) L 03/31/22: ABG Base Excess -2.2 mmol/L (-2.0-2.0) L 03/31/22: Satish Test Pos 03/31/22: Hematocrit 46.7 % (37-47) 03/31/22: O2 Delivery Device Room air 03/31/22: FiO2 21.0 % 03/31/22: Coal Hauler Operator ID Cak 03/31/22: Sodium 123 mmol/L (136-145) L 03/31/22 15:00 Potassium 3.9 mmol/L (3.5-5.1) 03/31/22 15: Chloride 83 mmol/L (98-107) L 03/31/22 15:00 Carbon Dioxide 18 mmol/L (22-29) L 03/31/22 15:00 Anion Gap 25.9 (5-19) H 03/31/22 15:00 BUN 14 mg/dL (6-20) 03/31/22 15:00 Creatinine 0.6 mg/dL (0.5-0.9) 03/31/22 15:00 GFR Calculation 106.7 mL/min (90-130) 03/31/22 15:00 Glucose 273 mg/dL (65-115) H 03/31/22 15:00 POC Glucose 243 mg/dL (70-110) H 03/31/22 18:27 Calculated Osmolality 266 mOsm/kg (285-295) L 03/31/22 15:00 Lactic Acid 2.7 mmol/L (0.5-2.2) H 03/31/22 15:15 Calcium 10.2 mg/dL (8.5-10.5) 03/31/22 15:00 Total Bilirubin 0.9 mg/dL (0.15-1.2) 03/31/22 15:00 AST 57 U/L (0-32) H 03/31/22 15:00 ALT 74 U/L (0-33) H 03/31/22 15:00 Alkaline Phosphatase 151 U/L (35-105) H 03/31/22 15:00 C-Reactive Protein 3.0 mg/L (0.0-4.9) 03/31/22 15:00 Total Protein 8.5 g/dL (6.6-8.7) 03/31/22 15:00 Albumin 4.6 g/dL (3.5-5.2) 03/31/22 15:00 Globulin 3.9 g/dL (1.3-4.6) 03/31/22 15:00 Lipase 16 U/L (13-60) 03/31/22 15:00 Procalcitonin 0.11 ng/mL (0-0.5) 03/31/22 15:00 TSH 2.86 uIU/mL (0.27-4.20) 03/31/22 15:00 Urine Color Yellow (Yellow) 03/31/22 15:06 Urine Appearance Clear (CLEAR) 03/31/22 15:06 Urine pH 5 (5-7) 03/31/22 15:06 Ur Specific [place] 1.020 (1.005-1.030) 03/31/22 15:06 Urine Protein Neg (Negative) 03/31/22 15:06 Urine Glucose (UA) 4+ (Normal) H 03/31/22 15:06 Urine Ketones 3+ (Negative) H 03/31/22 15:06 Urine Blood Neg (Negative) 03/31/22 15:06 Urine Nitrate Negative (Negative) 03/31/22 15:06 Urine Bilirubin Neg (Negative) 03/31/22 15:06 Urine Urobilinogen Norm mg/dL (Negative) 03/31/22 15:06 Ur Leukocyte Esterase Negative (Negative) 03/31/22 15:06 Serum Ketones Negative (Negative) 03/31/22 15:15 Discharge Plan Discharge Patient Disposition: Placed in Observation Admit Provider: Keyon Quintanilla Clinical Impression: Abdominal pain, Nausea & vomiting, Dehydration, Intussusception of small bowel Discharge Diet: Usual diet Discharge Activity: Resume usual activity Coding Level of Care Code ED Supplier Specialist for Chg Fwd Exam Comprehensive
[2022-03-31 15:37] LABS: Arterial Blood Gas Hematocrit 46.7 % (37-47); Base Excess ABG -2.2 mmol/L (-2.0-2.0); Blood Gas Allen Test Pos; Blood Gas Operator Identificat CAK; Blood Gas Sample Site Radial, left; Blood Gas Sample Type Arterial; Oxygen Device ROOM AIR
[2022-03-31 15:38] LABS: ABG PCO2 18.6 mmHg (35-45); ABG PH Result 7.57 (7.35-7.45)
[2022-03-31] MEDS: haloperidol inj 5 mg/mL INJ 1 mL 2 MG IVP ×2 (15:40→20:28)
[2022-03-31 15:42] LABS: Basophils % 0.2 %; Hematocrit 45.4 % (37.0-47.0); Hemoglobin 16.1 g/dL (11.5-15.3); Lymphocytes # 1.5 10^3/uL (0.8-4.8); Lymphocytes % 9.9 %; Mean Corpuscular HGB Conc 35.5 g/dL (30.0-36.0); Mean Corpuscular Hemoglobin 28.9 pg (28.0-34.0); Mean Corpuscular Volume 81.5 fl (81-99); Mean Platelet Volume 9.1 fL (7.4-10.4); Monocytes # 0.5 10^3/uL (0.2-0.9); Monocytes % 3.2 %; Neutrophils # 12.68 10^3/uL (1.8-7.7); Neutrophils % 85.9 %; Nucleated Red Blood Cells % 0 %; Platelet Count 456 10^3/cmm (130-400); Red Blood Count 5.57 10^6/uL (4.1-5.3); Red Cell Distribution Width 13.1 % (12.1-15.1); White Blood Count 14.8 10^3/uL (4.0-10.0)
[2022-03-31 16:22] LABS: Ketone (Acetest) Serum Negative (Negative)
[2022-03-31 16:25] LABS: Add Urine Microscopic? NO; Bilirubin Urine Neg (Negative); Blood Urine Neg (Negative); Charge for UA Resulting for Rev; Glucose Urine UA 4+ (Normal); Ketones Urine 3+ (Negative); Leukocyte Esterase Urine Negative (Negative); Nitrate Urine Negative (Negative); Protein Urine Neg (Negative); Urine Appearance Clear (CLEAR); Urine Color Yellow (Yellow); Urobilinogen Urine Norm (Negative); pH Urine 5 (5-7)
[2022-03-31 16:27] LABS: Procalcitonin 0.11 ng/mL (0-0.5); Thyroid Stimulating Hormone 2.86 uIU/mL (0.27-4.20)
[2022-03-31 16:38] LABS: Alanine Aminotransferase 74 U/L (0-33); Albumin Level 4.6 g/dL (3.5-5.2); Alkaline Phosphatase 151 U/L (35-105); Anion Gap 25.9 (5-19); Aspartate Amino Transferase 57 U/L (0-32); Blood Urea Nitrogen 14 mg/dL (6-20); Calcium 10.2 mg/dL (8.5-10.5); Carbon Dioxide 18 mmol/L (22-29); Chloride 83 mmol/L (98-107); Globulin 3.9 g/dL (1.3-4.6); Glomerular Filtration Rate 106.7 mL/min (90-130); Glucose 273 mg/dL (65-115); Osmolality Calculated 266 mOsm/kg (285-295); Potassium 3.9 mmol/L (3.5-5.1); Sodium 123 mmol/L (136-145); Total Bilirubin 0.9 mg/dL (0.15-1.2); Total Protein 8.5 g/dL (6.6-8.7)
--- NOTE | 2022-03-31 16:41 | CTR_ITS ---
PROCEDURE INFORMATION: Exam: CT Abdomen And Pelvis With Contrast Exam date and time: 03/31/2022 4:53 PM Age: 46 years old Clinical indication: Abdominal pain; Generalized; Additional info: Abdominal pain, n/v TECHNIQUE: Imaging protocol: Computed tomography of the abdomen and pelvis with contrast. Total images: 61 Radiation optimization: All CT scans at this facility use at least one of these dose optimization techniques: automated exposure control; mA and/or kV adjustment per patient size (includes targeted exams where dose is matched to clinical indication); or iterative reconstruction. Contrast material: OMNIPAQUE 350; Contrast volume: 95 ml; Contrast route: INTRAVENOUS (IV); COMPARISON: CT abdomen pelvis w con* [id number] 01/09/2022 10:16 AM RADIATION DOSE METRICS: Total DLP (mGy-cm): 414.36 FINDINGS: Liver: Normal. No mass. Gallbladder and bile ducts: Normal. No calcified stones. No ductal dilation. Pancreas: Normal. No ductal dilation. Spleen: Incidental splenic granulomata are noted. Adrenal glands: Normal. No mass. Kidneys and ureters: Normal. No hydronephrosis. Stomach and bowel: Entero enteric intussusception in the right pelvis with intussusceptium nonenhancing. Typically these are intermittent findings but can cause abdominal pain. The lack of enhancement is concerning for possible ischemia. No evidence of obstruction nor adjacent inflammatory changes. Appendix: No evidence of appendicitis. Intraperitoneal space: See Stomach and bowel finding. Vasculature: Moderate atherosclerotic disease is evident. Incidental phleboliths noted. Lymph nodes: Unremarkable. No enlarged lymph nodes. Urinary bladder: There is nonspecific urinary bladder wall thickening, felt to be due to under distension. Reproductive: Prior hysterectomy noted. Bones/joints: L4 Vertebral body with thickened, sparse vertical trabecula consistent with a vertebral body hemangioma. [place] left spinal scoliosis. Multilevel degenerative disc disease with disc space narrowing and osteophyte formation. Moderate scattered degenerative changes of the spine. Soft tissues: Unremarkable. CT/CT abdomen pelvis w con* [id number] IMPRESSION: 1. Entero enteric intussusception in the right pelvis with intussusceptium nonenhancing. Typically these are intermittent findings but can cause abdominal pain. The lack of enhancement is concerning for possible ischemia. No evidence of obstruction nor adjacent inflammatory changes. 2. There is nonspecific urinary bladder wall thickening, felt to be due to under distension. Consider urinalysis.
[2022-03-31] MEDS: iohexol 350 mg/mL 500 mL Btl (per mL) IV (17:01)
[2022-03-31] MEDS: sodium chloride 0.9% 1,000 ML 999 ML IV (17:20)
[2022-03-31] MEDS: morphine 4 mg/mL SDV 1 mL IVP (18:05)
[2022-03-31 18:32] LABS: Glucose Point of Care 243 mg/dL (70-110)
[2022-03-31 18:55] LABS: Lactic Sepsis W/Reflex 2.7 mmol/L (0.5-2.2)
[2022-03-31] MEDS: metoclopramide 5 mg/mL SDV 2 mL 10 MG IVP (19:10)
--- NOTE | 2022-03-31 19:20 | PC.NURSE ---
Shift change report received from Daya Chery RN. Pt is sitting up in bed, rocking back and forth and moaning stating that she has a lot of nausea. IVP Reglan given by day shift nurse. Her 20g IV is in right wrist, intact, saline locked. Attempted to take patient's vitals, but her blood pressure will not take due to pt's constant movement.
--- NOTE | 2022-03-31 19:21 | P.CONIM_ITS ---
Providers/Reason For Consult Consulting Physician/Specialty*: General Surgery Tin Maguire MD, FACS, RPVI Reason for Consult*: Abdominal pain Primary Care Provider: Israel Otero MD History of Present Illness History of Present Illness Mena Cano is a 46 year old female She is a prior patient of Dr. Garcia. She has a history of on and off abdominal pain for at least 2 years. She underwent extensive work-up including upper and lower endoscopy, there were no recent to explain her pain. She is always nauseous and lost her appetite. She is vomiting on and off. This time for symptoms exacerbated for 3 days and she was not able to keep any food down. Also developed diarrhea for several days. Complaining of pain in the mid epigastric area, periumbilical area. Her condition did not improve, and she went to seek medical attention to the emergency room. He is also complaining of generalized weakness. Denies any blo od in the vomitus or stool. History of drug abuse. She quit using methamphetamine about 2 years ago. She smokes several cigarettes a day. Denies drinking alcohol. History of back surgery, hysterectomy, ablation for SVT, Review of Systems Narrative: 10 point review of systems is negative except as per HPI Medications/Allergies Home Medications Medication Instructions Recorded Confirmed Last Taken Type Diabetic Shoes with 3 inserts #1 ea 08/12/21 03/31/22 12/01/21 Rx lancets 30 gauge (OneTouch Delica #100 ea 08/18/21 03/31/22 12/01/21 Rx Plus Lancet) buprenorphine 8 mg-naloxone 2 mg 0.5 film buccal BID 09/08/21 03/31/22 03/31/22 History sublingual film pen needle, diabetic 32 gauge x #50 ea 09/23/21 03/31/22 12/01/21 Rx (1st Tier Unifine Pentips) gabapentin 300 mg capsule See Rx Instructions .Route 12/07/21 03/31/22 03/30/22 Rx .COMPLEX #240 caps levothyroxine 50 mcg tablet See Rx Instructions .Route 12/07/21 03/31/22 03/30/22 Rx .COMPLEX #30 tabs glipizide 10 mg tablet, extended 10 mg PO BID diabetes #60 tabs 07/20/22 11/10/22 11/09/22 Rx release 24 hr buspirone 30 mg tablet 15 mg PO BID #60 tabs 12/29/21 03/31/22 03/30/22 Rx liraglutide 0.6 mg/0.1 mL (18 mg/3 1.8 mg SUBCUT DAILY PRN high blood 01/03/22 03/31/22 01/01/22 History mL) subcutaneous pen injector sugar (Victoza 3-Navneet) paroxetine HCl 20 mg tablet (Paxil) 20 mg PO DAILY anxiety #30 tabs 01/13/22 03/31/22 03/30/22 Rx metformin 500 mg tablet 1,000 mg PO BID Diabetes 30 days 01/18/22 03/31/22 03/30/22 Rx #120 tabs ondansetron HCl 4 mg tablet See Rx Instructions .Route 03/14/22 03/31/22 Unknown Rx .COMPLEX #30 tabs mirtazapine 30 mg tablet 30 mg PO BEDTIME mental health & 03/31/22 03/31/22 03/30/22 History sleep omeprazole 20 mg tablet,delayed 20 mg PO BID PRN nausea/heartburn 03/31/22 03/31/22 Unknown Rx release #60 tabs Allergies Allergy/AdvReac Type Severity Reaction Status Date / Time amoxicillin Allergy Unknown Verified 03/18/22 08:56 PFSH Acute PFSH: Medical History Anxiety and depression Bilateral bunions COPD (chronic obstructive pulmonary disease) with emphysema Dehydration, mild Diabetes type 2, uncontrolled Diabetic neuropathy Dyslipidemia Elevated transaminase level Gastritis GERD (gastroesophageal reflux disease) Hemochromatosis carrier History of rheumatoid arthritis Hx of hepatitis C treatment with Dr. Morgan ~1999 Hypothyroidism Insomnia disorder, with other sleep disorder, recurrent Insulin dependent diabetes mellitus Iron overload Lumbar disc disease with radiculopathy Marijuana use Nicotine dependence, cigarettes, uncomplicated JOSE (obstructive sleep apnea) per sleep study 2010, CPAP of 13 recommended at that time, no longer with machine Osteoarthritis involving multiple joints on both sides of body Paroxysmal SVT (supraventricular tachycardia) Psychiatric care PTSD (post-traumatic stress disorder) Right flank pain, chronic Scoliosis associated with other condition Smoker Supraventricular tachycardia (~04/2020) identified during ED visit 04/2020, treated with 6mg adenosine with conversion to sinus Surgical History History of hysterectomy (~2011) also Kimberly urethral plication History of incision and drainage (~2013) right upper extremity and R lower extremity History of tubal ligation History of umbilical hernia repair (~2011) Hx of cataract surgery bilateral eye Family History Father Diabetes Mother Diabetes Grandfather Pacemaker Denies family history of Stroke Social History Smoking and tobacco status: current every day smoker cigarettes Packs smoked per day: 0.5 Years cigarettes smoked: 33 Quit status (tobacco): has tried quititng Number of times tried to quit tobacco: 5 Second hand smoke exposure: Yes Smoking risk assessment/counseling performed?: No Alcohol intake: former Desire information about alcohol rehabilitation?: No Counseling given: No Desire information about substance/drug rehabilitation?: No Counseling given: No Caregiver/support person: No Lives independently: Yes Household members: spouse Housing: House Marital status: Life Partner Number of children: 2 Number of grandchildren: 0 Highest education level completed: High School Graduate service: No Current occupational status: unemployed Pets and animals: Yes Pets & animals: dog(s) History of recent travel: No Current gender identity: Female Sirena/Hindu: Voodoo Vitals/I&O/Wt Last Vital Signs Temp 98.2 F 03/31/22 15:04 Pulse 78 03/31/22 18:00 Resp 19 H 03/31/22 18:05 BP 169/85 03/31/22 18:30 Pulse Ox 99 03/31/22 18:30 O2 Del Method 03/31/22 18:30 03/31/22 03/31/22 03/31/22 06:59 14:59 22:59 Intake Total 1000 / 1000 Balance 1000 / 1000 Weight last 48 hrs Weight 160 lb Physical Exam Narrative: General: No acute distress Psych: [AAOx3] Eyes: [sclerae are white] Head/ENT: [normocephalic, symmetric] CV: [regular] pulse, [], no JVD Lungs: [symmetrical chest rise] Abdomen: [soft, ND, mild tenderness to palpation in the periumbilical area] Ext: [no obvious traumatic deformities] Skin: warm Data : 03/31/22 15:00 03/31/22 15:00 Micro: Microbiology 03/31/22 15:20 Blood Culture - Preliminary Blood SPECIMEN COLLECTED 03/31/22 15:15 Blood Culture - Preliminary Blood SPECIMEN COLLECTED A&P Assessment and plan (1) Abdominal pain: (2) Nausea & vomiting: (3) Dehydration: (4) Intussusception of small bowel: (5) Opioid use disorder, severe, on maintenance therapy: (6) Major depressive disorder, recurrent, moderate: (7) Generalized anxiety disorder: (8) Cannabis use disorder, severe, dependence: Plan Her abdominal exam is pretty much benign. I think that the intussusception is an accidental finding with out clinical significance. However, given her abdominal pain and severe dehydration, it warrants observation with serial abdominal exam. I will also give her Gastrografin and order abdominal x-ray in 8 hours after the Gastrografin is given to assess passage through the small bowel. Continue resuscitation with fluids. Coding Level of Care Code Acute Asbestos Cement Sheet Supervisor for [facility] David Diagnoses Abdominal pain R10.9 Nausea & vomiting R11.2 Dehydration E86.0 Intussusception of small bowel K56.1 Opioid use disorder, severe, on maintenance therapy F11.20 Major depressive disorder, recurrent, moderate F33.1 Generalized anxiety disorder F41.1 Cannabis use disorder, severe, dependence F12.20
[2022-03-31 19:55] LABS: Reflex Lactate Order REFLEX LACTIC ORDERD
[2022-03-31] MEDS: pantoprazole 40 mg SDV IVP (20:28)
[2022-03-31] MEDS: sodium chloride 0.9% 1,000 ML 200 ML IV (20:29)
[2022-03-31] MEDS: diatrizoate meglumine 120 mL Sol 100 ML PO (21:03)
--- NOTE | 2022-03-31 21:08 | P.HP_ITS ---
Providers/Chief Complaint Admitting Physician: Keyon Quintanilla Primary Care Provider: Israel Otero MD Chief Complaint: ABD Pain History of Present Illness 46-year-old lady with history of issues with recurrent abdominal discomfort, controlling her bowels, recurrent nausea and vomiting, following up with surgery in office previously, with referral for assessment by upper GI study, HIDA scan. Gastric emptying study back in December showed delayed gastric emptying with only 6% emptying 1 hour, improved emptying by 2 hours with 48% emptying, HIDA scan in February was normal. Previously also had EGD and colonoscopy in January, of GERD, gastritis, H. pylori and was treated with triple therapy. Colonoscopy was WNL. She presented to ER for evaluation due to recurrent episodes of nausea, vomiting, abdominal pain, poor appetite and oral intake, although states has been managing to keep down her medications. Pain mostly periumbilical. Also reports having loose nonbloody stools. In ER she is noted afebrile, with tachypnea 22 breaths/min, saturating well on room air, appearing dry on exam, leukocytosis 14.8, however also hemoglobin 16.1 and platelets elevated at 456. With hyponatremia 123. Chloride 83. Bicarb 18, anion gap 25.9. ABG 7.57/18 point 6/113/17. BUN 14, creatinine 0.6. Glucose 273. AST 57, ALT 74, alk phos 151. CRP 3. Albumin 4.6, globulin 3.9. TSH 2.86. Procalcitonin 0.11. CT abdomen pelvis with reported enteroenteric intussusception in the right pelvis with intussusceptum nonenhancing. Typically these are intermittent findings but can cause abdominal pain. Lack of enhancement is concerning for possible ischemia. No evidence of obstruction nor adjacent inflammatory changes. There is nonspecific urinary bladder wall thickening felt to be due to underdistention. Consider UA. UA positive for 4+ glucose, 3+ ketones. Serum ketones negative. She had received IV fluid boluses, Haldol, Reglan, and is assessed by surgery in consultation. Review of Systems Const: Reports: change in appetite; Denies: fever(s), chills, body aches or malaise Eyes: Denies: change in vision, eye discomfort or eye redness ENMT: Denies: throat pain, oral sores or ear or mastoid pain Card: Denies: chest pain, edema, pre-syncope or dyspnea on exertion Resp: Denies: dyspnea, productive cough, change in phlegm color or hemoptysis GI: Reports: abdominal pain, nausea, vomiting and diarrhea; Denies: constipation, hematochezia or melena : Denies: flank pain, urinary frequency or hematuria Musc: Denies: back pain, joint swelling or joint redness Skin/Breast: Denies: rash or new lesions Neuro: Denies: headache(s), numbness in extremities, weakness in extremities, dizziness, confusion or seizure-like activity Endo: Denies: polyuria or polydipsia Valentino/Lymph: Denies: easy bleeding or tender lymph nodes All/Imm: Denies: urticaria or tongue swelling Medications/Allergies Home Medications Medication Instructions Recorded Confirmed Last Taken Type Diabetic Shoes with 3 inserts #1 ea 08/12/21 03/31/22 12/01/21 Rx lancets 30 gauge (OneTouch Delica #100 ea 08/18/21 03/31/22 12/01/21 Rx Plus Lancet) buprenorphine 8 mg-naloxone 2 mg 0.5 film buccal BID 09/08/21 03/31/22 03/31/22 History sublingual film pen needle, diabetic 32 gauge x #50 ea 09/23/21 03/31/22 12/01/21 Rx (1st Tier Unifine Pentips) gabapentin 300 mg capsule See Rx Instructions .Route 12/07/21 03/31/22 03/30/22 Rx .COMPLEX #240 caps levothyroxine 50 mcg tablet See Rx Instructions .Route 12/07/21 03/31/22 03/30/22 Rx .COMPLEX #30 tabs glipizide 10 mg tablet, extended 10 mg PO BID diabetes #60 tabs 12/08/21 03/31/22 03/30/22 Rx release 24 hr buspirone 30 mg tablet 15 mg PO BID #60 tabs 12/29/21 03/31/22 03/30/22 Rx liraglutide 0.6 mg/0.1 mL (18 mg/3 1.8 mg SUBCUT DAILY PRN high blood 01/03/22 03/31/22 01/01/22 History mL) subcutaneous pen injector sugar (Victoza 3-Navneet) paroxetine HCl 20 mg tablet (Paxil) 20 mg PO DAILY anxiety #30 tabs 01/13/22 03/31/22 03/30/22 Rx metformin 500 mg tablet 1,000 mg PO BID Diabetes 30 days 01/18/22 03/31/22 03/30/22 Rx #120 tabs ondansetron HCl 4 mg tablet See Rx Instructions .Route 03/14/22 03/31/22 Unknown Rx .COMPLEX #30 tabs mirtazapine 30 mg tablet 30 mg PO BEDTIME mental health & 03/31/22 03/31/22 03/30/22 History sleep omeprazole 20 mg tablet,delayed 20 mg PO BID PRN nausea/heartburn 03/31/22 03/31/22 Unknown Rx release #60 tabs Allergies Allergy/AdvReac Type Severity Reaction Status Date / Time amoxicillin Allergy Unknown Verified 03/18/22 08:56 PFSH Acute PFSH: Medical History Anxiety and depression Bilateral bunions COPD (chronic obstructive pulmonary disease) with emphysema Dehydration, mild Diabetes type 2, uncontrolled Diabetic neuropathy Dyslipidemia Elevated transaminase level Gastritis GERD (gastroesophageal reflux disease) Hemochromatosis carrier History of rheumatoid arthritis Hx of hepatitis C treatment with Dr. Morgan ~1999 Hypothyroidism Insomnia disorder, with other sleep disorder, recurrent Insulin dependent diabetes mellitus Iron overload Lumbar disc disease with radiculopathy Marijuana use Nicotine dependence, cigarettes, uncomplicated JOSE (obstructive sleep apnea) per sleep study 2010, CPAP of 13 recommended at that time, no longer with machine Osteoarthritis involving multiple joints on both sides of body Paroxysmal SVT (supraventricular tachycardia) Psychiatric care PTSD (post-traumatic stress disorder) Right flank pain, chronic Scoliosis associated with other condition Smoker Supraventricular tachycardia (~04/2020) identified during ED visit 04/2020, treated with 6mg adenosine with conversion to sinus Surgical History History of hysterectomy (~2011) also Kimberly urethral plication History of incision and drainage (~2013) right upper extremity and R lower extremity History of tubal ligation History of umbilical hernia repair (~2011) Hx of cataract surgery bilateral eye Family History Father Diabetes Mother Diabetes Grandfather Pacemaker Denies family history of Stroke Social History Smoking and tobacco status: current every day smoker cigarettes Packs smoked per day: 0.5 Years cigarettes smoked: 33 Quit status (tobacco): has tried quititng Number of times tried to quit tobacco: 5 Second hand smoke exposure: Yes Smoking risk assessment/counseling performed?: No Alcohol intake: former Desire information about alcohol rehabilitation?: No Counseling given: No Desire information about substance/drug rehabilitation?: No Counseling given: No Caregiver/support person: No Lives independently: Yes Household members: spouse Housing: House Marital status: Life Partner Number of children: 2 Number of grandchildren: 0 Highest education level completed: High School Graduate service: No Current occupational status: unemployed Pets and animals: Yes Pets & animals: dog(s) History of recent travel: No Current gender identity: Female 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 HENMT: OTHER: Dry MM Neck/C-Spine: COMMON NORMALS: no JVD Resp: COMMON NORMALS: normal respiratory effort and clear to auscultation bilaterally AUSCULTATION: clear to auscultation bilaterally Cardio: COMMON NORMALS: no JVD, regular rhythm, S1 normal heart sound present, S2 normal heart sound present and No murmurs present (Cardio) RHYTHM: regular rhythm HEART SOUNDS: S1 normal heart sound present and S2 normal heart sound present GI: COMMON NORMALS: Soft to palpation PALPATION: Yes Soft to palpation and Yes Tenderness to palpation present (GI) (some tenderness periumbilically) Extremity: COMMON NORMALS: no joint enlargement and no pedal edema Neuro: COMMON NORMALS: patient oriented x3 and moves all extremities SENSORIUM/ORIENTATION: Yes alert Skin: COMMON NORMALS: no rashes or lesions noted GENERAL SKIN EXAM: no rashes or lesions noted Data : 03/31/22 15:00 03/31/22 15:00 Micro: Microbiology 03/31/22 15:20 Blood Culture - Preliminary Blood SPECIMEN COLLECTED 03/31/22 15:15 Blood Culture - Preliminary Blood SPECIMEN COLLECTED A&P Assessment and plan (1) Abdominal pain: Recurrent nausea and vomiting. Known gastroparesis. However, currently finding of possible intussusception as well. Appreciate surgical evaluation. Pending Gastrografin study and reassessment. N.p.o. for now. IVF support. Protonix. Zofran as needed. Consider Reglan with meals. (2) Nausea & vomiting: As above (3) Dehydration: With hemoconcentration. IV hydration Reassess volume status, blood counts (4) Intussusception of small bowel: As above (5) Acid-base disorder, mixed: Mixed acid-base disorder, she is alkalotic, but appears to be combination of metabolic and respiratory Kalosis, as well as metabolic acidosis with anion gap acidosis. Combination likely secondary to both vomiting, contraction alkalosis, tachypnea possibly secondary to anxiety. Additionally noted mild lactic acidosis 2.7. Additionally urine ketones are positive, serum ketones negative, however, cannot exclude mild/early DKA with history of diabetes. Otherwise possibly some starvation ketosis as she has had very poor appetite and poor oral intake. IV rehydration as above. Additional assessment of intussusception as above. We will additionally start her on Lantus 10 units nightly, sliding scale insulin. Reassess chemistry. (6) Hyponatremia: Acute hypovolemic hyponatremia, received fluid challenge. Follow-up chemistry. (7) Transaminitis: Not entirely clear etiology, appears to have some chronicity to transaminitis. Noted history of hemochromatosis gene carrier. Reassess liver parameters. Will need outpatient follow-up. (8) Bladder wall thickening: This appears to be recurrent finding. UA not suggestive of infection. Consider follow-up with urology. Plan Anxiety and depression COPD DM2 Diabetic neuropathy HLD Transaminitis GERD Gastritis Hemochromatosis carrier History of RA Hepatitis C status posttreatment Hypothyroidism Insomnia Lumbar disc disease with radiculopathy Marijuana use: In case still using marijuana, consider also cannabinoid hyperemesis syndrome Nicotine dependence JOSE not on CPAP 08 Paroxysmal SVT Psychiatric problems including PTSD Chronic abdominal pain Scoliosis Other chronic medical problems noted Attestations Medical Necessity Statement*: Place in observation for additional element of nausea and vomiting, dehydration, mixed acid-base disorder, hyponatremia, possible intussusception. Coding Level of Care Code Acute Coagulator for Chg Fwd Exam Comprehensive Diagnoses Abdominal pain R10.9 Nausea & vomiting R11.2 Dehydration E86.0 Intussusception of small bowel K56.1 Acid-base disorder, mixed E87.4 Hyponatremia E87.1 Transaminitis R74.01 Bladder wall thickening N32.89
[2022-03-31 22:11] LABS: Lipase 16 U/L (13-60)
[2022-03-31 22:14] LABS: Lactic Acid level (Lactate) 1.4 mmol/L (0.5-2.2)
[2022-03-31 22:31] LABS: Glucose Point of Care 166 mg/dL (70-110)
[2022-03-31 22:37] LABS: Glucose Point of Care 191 mg/dL (70-110)
[2022-03-31] MEDS: enoxaparin 40 mg/0.4 mL Syringe SUBCUT (22:54)
[2022-03-31] MEDS: insulin lispro 100 unit/1 mL SUBCUT (22:54)
[2022-03-31] MEDS: lactated ringers 1,000 ML 100 ML IV (22:54)
[2022-03-31] MEDS: mirtazapine 30 mg Tablet PO (22:55)
[2022-03-31] MEDS: insulin glargine 100 units/1 mL 10 UNIT SUBCUT (23:05)
[2022-04-01] VITALS (7 sets, daily range): BP systolic 105–140; BP diastolic 64–83; PULSE 68–97; RESP 16–18; TEMP 36.6–37.3; O2SAT 94–98
[2022-04-01 04:35] LABS: Basophils % 0.2 %; Eosinophils % 0.4 %; Hematocrit 38.4 % (37.0-47.0); Lymphocytes # 2.5 10^3/uL (0.8-4.8); Lymphocytes % 22.3 %; Mean Corpuscular HGB Conc 33.9 g/dL (30.0-36.0); Mean Corpuscular Hemoglobin 28.7 pg (28.0-34.0); Mean Corpuscular Volume 84.8 fl (81-99); Mean Platelet Volume 9.2 fL (7.4-10.4); Monocytes # 0.9 10^3/uL (0.2-0.9); Monocytes % 8.1 %; Neutrophils # 7.75 10^3/uL (1.8-7.7); Neutrophils % 68.5 %; Nucleated Red Blood Cells % 0 %; Platelet Count 356 10^3/cmm (130-400); Red Blood Count 4.53 10^6/uL (4.1-5.3); Red Cell Distribution Width 13.2 % (12.1-15.1); White Blood Count 11.3 10^3/uL (4.0-10.0)
[2022-04-01 05:05] LABS: Alanine Aminotransferase 46 U/L (0-33); Albumin Level 3.5 g/dL (3.5-5.2); Alkaline Phosphatase 108 U/L (35-105); Aspartate Amino Transferase 30 U/L (0-32); Blood Urea Nitrogen 8 mg/dL (6-20); Calcium 8.7 mg/dL (8.5-10.5); Carbon Dioxide 21 mmol/L (22-29); Chloride 99 mmol/L (98-107); Globulin 2.8 g/dL (1.3-4.6); Glomerular Filtration Rate 170.4 mL/min (90-130); Glucose 75 mg/dL (65-115); Osmolality Calculated 275 mOsm/kg (285-295); Sodium 134 mmol/L (136-145); Total Bilirubin 0.6 mg/dL (0.15-1.2); Total Protein 6.3 g/dL (6.6-8.7)
[2022-04-01] MEDS: ondansetron 2 mg/ML SDV 2 mL 4 MG IVP ×3 (05:22→17:41)
[2022-04-01] MEDS: levothyroxine 50 mcg Tablet PO (06:20)
[2022-04-01 06:32] LABS: Glucose Point of Care 70 mg/dL (70-110)
--- NOTE | 2022-04-01 08:25 | XRR_ITS ---
PROCEDURE INFORMATION: Exam: XR Abdomen Exam date and time: 04/01/2022 8:46 AM Age: 46 years old Clinical indication: Condition or disease; Intestinal condition; Obstruction; Additional info: Sbo. Ileus. TECHNIQUE: Imaging protocol: Radiologic exam of the abdomen. Views: 2 Views. Upright and supine views. COMPARISON: CT abdomen pelvis w con* [id number] 03/31/2022 4:53 PM FINDINGS: Gastrointestinal tract: No abnormally dilated air-filled bowel loops identified. Contrast noted throughout the colon and distally in the rectum. Intraperitoneal space: No significant mass effect identified within the abdomen. Splenic granulomas noted. Bones/joints: Leftward curvature of the thoracolumbar spine. XR/XR abdomen min 2V 00165 IMPRESSION: 1. Nonobstructive bowel gas pattern. 2. Contrast noted throughout the colon and distally in the rectum.
[2022-04-01 08:50] LABS: Glucose Point of Care 93 mg/dL (70-110)
[2022-04-01] MEDS: lactated ringers 1,000 ML 100 ML IV (09:50)
[2022-04-01] MEDS: buprenorphine-naloxone 4-1 mg Film 1 EACH SUBLINGUAL ×2 (09:55→17:08)
[2022-04-01] MEDS: BuSPIRONE 10 mg Tablet 15 MG PO ×2 (09:56→17:07)
[2022-04-01] MEDS: pantoprazole DR 40 mg Tablet PO (09:56)
[2022-04-01] MEDS: PARoxetine 20 mg Tablet PO (09:56)
[2022-04-01] MEDS: gabapentin 300 mg Capsule 900 MG PO ×2 (09:56→17:07)
--- NOTE | 2022-04-01 10:23 | PM.PN ---
Subjective Subjective: No acute events overnight. She feels much better overall. Abdominal pain improved significantly. She does not complain of any pain right now. Vitals/I&O/Wt Last Vital Signs Temp 99.2 F 04/01/22 07:26 Pulse 93 04/01/22 07:26 Resp 16 04/01/22 07:26 BP 118/70 04/01/22 07:26 Pulse Ox 94 04/01/22 07:26 O2 Del Method 04/01/22 07:26 03/31/22 04/01/22 04/01/22 22:59 06:59 14:59 Intake Total 1999 1000 / 1000 Balance 1999 1000 / 1000 Weight last 48 hrs Weight 128 lb Weight 129 lb 14.4 oz Weight 160 lb Physical Exam Narrative: General: No acute distress Psych: AAOx3 Eyes: Sclerae are white Head/ENT: Normocephalic, symmetric CV: Regular pulse,, no JVD Lungs: Symmetrical chest rise Abdomen: [soft, ND, nontender Ext: No obvious traumatic deformities Skin: warm Data : 04/01/22 02:20 04/01/22 02:20 Micro: Microbiology 03/31/22 15:20 Blood Culture - Preliminary Blood SPECIMEN COLLECTED 03/31/22 15:15 Blood Culture - Preliminary Blood SPECIMEN COLLECTED A&P Assessment and plan (1) Abdominal pain: (2) Nausea & vomiting: (3) Dehydration: (4) Intussusception of small bowel: (5) Opioid use disorder, severe, on maintenance therapy: (6) Major depressive disorder, recurrent, moderate: (7) Generalized anxiety disorder: (8) Cannabis use disorder, severe, dependence: Plan X-ray was reviewed. Contrast crossed into the colon without any problems. Nonobstructive bowel gas. Abdominal exam is benign. It seems that the patient suffering from gastroenteritis of some sort of. I think that the finding of intussusception on CT scan is a purely accidental finding. No indication for any surgical intervention. She already established relationship with Dr. Escalera who was working up her chronic abdominal pain. She should follow with Dr. Escalera to discuss further work-up as outpatient. At this time general surgery will sign off. Please call with questions/concerns. Attestations Medical Necessity Statement*: Okay to discharge home from surgery standpoint Coding Level of Care Code Acute Front End Drupal Developer for Chg Fwd Diagnoses Abdominal pain R10.9 Nausea & vomiting R11.2 Dehydration E86.0 Intussusception of small bowel K56.1 Opioid use disorder, severe, on maintenance therapy F11.20 Major depressive disorder, recurrent, moderate F33.1 Generalized anxiety disorder F41.1 Cannabis use disorder, severe, dependence F12.20
--- NOTE | 2022-04-01 11:49 | P.PN_ITS ---
Subjective Subjective: Seen this morning. Patient is asymptomatic and doing well. No longer having any nausea or vomiting. Seen by general surgery and okay to be discharged from her standpoint. Patient states she uses a lot of CBD oil and she is also curious if that is what is causing her nausea vomiting. She is re questing her diet to be advanced. Vitals/I&O/Wt Last Vital Signs Temp 99.1 F 04/01/22 11:22 Pulse 94 04/01/22 11:22 Resp 17 04/01/22 11:22 BP 112/75 04/01/22 11:22 Pulse Ox 94 04/01/22 11:22 O2 Del Method 04/01/22 11:22 03/31/22 04/01/22 04/01/22 22:59 06:59 14:59 Intake Total 1999 1000 / 1000 Balance 1999 1000 / 1000 Weight last 48 hrs Weight 58.06 kg Weight 58.922 kg Weight 72.575 kg Physical Exam Narrative: General: No acute distress Psych: AAOx3 Eyes: Sclerae are white Head/ENT: Normocephalic, symmetric CV: Regular pulse,, no JVD Lungs: Symmetrical chest rise Abdomen: [soft, ND, nontender Ext: No obvious traumatic deformities Skin: warm Data : 04/01/22 02:20 04/01/22 02:20 Micro: Microbiology 03/31/22 15:20 Blood Culture - Preliminary Blood SPECIMEN COLLECTED 03/31/22 15:15 Blood Culture - Preliminary Blood SPECIMEN COLLECTED A&P Assessment and plan (1) Bladder wall thickening: (2) Transaminitis: (3) Hyponatremia: (4) Intussusception of small bowel: (5) Generalized anxiety disorder: (6) COPD (chronic obstructive pulmonary disease) with emphysema: (7) Smoker: (8) GERD (gastroesophageal reflux disease): (9) Hypothyroidism: Qualifiers: Hypothyroidism type: unspecified Qualified Code(s): E03.9 - Hypothy roidism, unspecified (10) Dyslipidemia: (11) Nicotine dependence, cigarettes, uncomplicated: (12) Diabetes type 2, uncontrolled: (13) Paroxysmal SVT (supraventricular tachycardia): (14) Gastroparesis due to DM: (15) Cannabis use disorder, severe, dependence: Plan #Nausea, vomiting, abdominal pain most likely secondary to cyclic vomiting syndrome due to CBD use #History of known diabetic gastroparesis #Intussusception of small bowel, incidental finding #Hyponatremia #Bladder wall thickening #Anxiety depression, COPD, diabetes mellitus type 2, rheumatoid arthritis, hepatitis C status posttreatment, hypothyroidism, insomnia, obstructive sleep apnea not on CPAP, paroxysmal SVT -Patient is labs have improved. ? Surgical consultation complete. Patient okay to discharge home from surgical standpoint. ? Continue IV fluids ? Advance diet ? Nausea vomiting most likely secondary to CBD use. -If patient is able to tolerate a diet later on today we will plan to discharge her home. She will follow-up with Dr. Escalera as an outpatient who she is already seeing for chronic nausea vomiting issues as an outpatient. Patient agreeable Dvt prophylaxis: Heparin Attestations Medical Necessity Statement*: Possible discharge today. Coding Level of Care Code Acute Institutional Commodity Analyst for Chg Fwd Diagnoses Bladder wall thickening N32.89 Transaminitis R74.01 Hyponatremia E87.1 Intussusception of small bowel K56.1 Generalized anxiety disorder F41.1 COPD (chronic obstructive pulmonary disease) with emphysema J43.9 Smoker F17.200 GERD (gastroesophageal reflux disease) K21.9 Hypothyroidism E03.9 Hypothyroidism type: unspecified Dyslipidemia E78.5 Nicotine dependence, cigarettes, uncomplicated F17.210 Diabetes type 2, uncontrolled E11.65 Paroxysmal SVT (supraventricular tachycardia) I47.1 Gastroparesis due to DM E11.43; K31.84 Cannabis use disorder, severe, dependence F12.20
[2022-04-01 12:50] LABS: Anion Gap 13.2 (5-19); Blood Urea Nitrogen 6 mg/dL (6-20); Calcium 8.7 mg/dL (8.5-10.5); Carbon Dioxide 24 mmol/L (22-29); Chloride 95 mmol/L (98-107); Glomerular Filtration Rate 170.4 mL/min (90-130); Glucose 71 mg/dL (65-115); Osmolality Calculated 264 mOsm/kg (285-295); Potassium 3.2 mmol/L (3.5-5.1); Sodium 129 mmol/L (136-145)
[2022-04-01] MEDS: gabapentin 300 mg Capsule 600 MG PO (12:54)
[2022-04-01 12:59] LABS: Glucose Point of Care 73 mg/dL (70-110)
[2022-04-01 19:05] LABS: Anion Gap 13.3 (5-19); Blood Urea Nitrogen 5 mg/dL (6-20); Calcium 8.7 mg/dL (8.5-10.5); Carbon Dioxide 25 mmol/L (22-29); Chloride 95 mmol/L (98-107); Glomerular Filtration Rate 131.7 mL/min (90-130); Glucose 128 mg/dL (65-115); Osmolality Calculated 269 mOsm/kg (285-295); Potassium 3.3 mmol/L (3.5-5.1); Sodium 130 mmol/L (136-145)
[2022-04-01] MEDS: sodium chloride 0.9% 1,000 ML 75 ML IV (19:42)
[2022-04-01 20:10] LABS: Urine Random Sodium 45 mmol/L
[2022-04-01] MEDS: mirtazapine 30 mg Tablet PO (20:27)
[2022-04-01] MEDS: enoxaparin 40 mg/0.4 mL Syringe SUBCUT (20:27)
[2022-04-01 20:35] LABS: Glucose Point of Care 140 mg/dL (70-110)
--- NOTE | 2022-04-01 21:17 | PC.NURSE ---
Scheduled lantus 10 units held. Patient has poor food intake and blood sugar was 140 at time of administer was scheduled. The patient was informed of this and agreed with decision. This was also discussed with charge nurse and she also agreed with this decision.
[2022-04-02 04:00] VITALS: BP 157/91; PULSE 84; RESP 16; TEMP 36.8; O2SAT 96
[2022-04-02 05:49] LABS: Glucose Point of Care 124 mg/dL (70-110)
[2022-04-02] MEDS: levothyroxine 50 mcg Tablet PO (05:57)
[2022-04-02] MEDS: ondansetron 2 mg/ML SDV 2 mL 4 MG IVP (06:00)
[2022-04-02 06:41] LABS: Basophils # 0.1 10^3/uL (0.0-0.1); Basophils % 0.9 %; Eosinophils # 0.1 10^3/uL (0.0-0.8); Eosinophils % 1.2 %; Hematocrit 40.8 % (37.0-47.0); Hemoglobin 13.7 g/dL (11.5-15.3); Lymphocytes # 2.1 10^3/uL (0.8-4.8); Lymphocytes % 31.4 %; Mean Corpuscular HGB Conc 33.6 g/dL (30.0-36.0); Mean Corpuscular Hemoglobin 28.5 pg (28.0-34.0); Mean Platelet Volume 8.8 fL (7.4-10.4); Monocytes # 0.6 10^3/uL (0.2-0.9); Monocytes % 9.6 %; Neutrophils # 3.77 10^3/uL (1.8-7.7); Neutrophils % 56.5 %; Nucleated Red Blood Cells % 0 %; Platelet Count 298 10^3/cmm (130-400); White Blood Count 6.7 10^3/uL (4.0-10.0)
[2022-04-02 07:03] LABS: Alanine Aminotransferase 52 U/L (0-33); Albumin Level 3.5 g/dL (3.5-5.2); Alkaline Phosphatase 114 U/L (35-105); Anion Gap 14.4 (5-19); Aspartate Amino Transferase 45 U/L (0-32); Blood Urea Nitrogen 4 mg/dL (6-20); Calcium 8.7 mg/dL (8.5-10.5); Carbon Dioxide 25 mmol/L (22-29); Chloride 97 mmol/L (98-107); Globulin 3.1 g/dL (1.3-4.6); Glomerular Filtration Rate 131.7 mL/min (90-130); Glucose 119 mg/dL (65-115); Osmolality Calculated 274 mOsm/kg (285-295); Potassium 3.4 mmol/L (3.5-5.1); Sodium 133 mmol/L (136-145); Total Bilirubin 0.5 mg/dL (0.15-1.2); Total Protein 6.6 g/dL (6.6-8.7)
[2022-04-02 07:07] VITALS: BP 178/100; PULSE 81; RESP 16; TEMP 36.7; O2SAT 97
[2022-04-02 07:21] VITALS: BP 160/100
[2022-04-02] MEDS: amlodipine 10 mg Tablet PO (07:47)
--- NOTE | 2022-04-02 09:00 | P.DS_ITS ---
Discharge Providers Date of Admission: 03/31/22 19:23 Date of Discharge: April 02, 2022 Attending Provider at Admission: Keyon Quintanilla Attending Provider at Discharge: Flaca Nichols MD Primary Care Provider: Israel Otero MD Diagnoses at Discharge Discharge Diagnosis (1) Bladder wall thickening: Status: Acute (2) Transaminitis: Status: Acute (3) Hyponatremia: Status: Acute (4) Intussusception of small bowel: Status: Acute (5) Generalized anxiety disorder: Status: Acute (6) COPD (chronic obstructive pulmonary disease) with emphysema: Status: Acute (7) Smoker: Status: Acute (8) GERD (gastroesophageal reflux disease): Status: Acute (9) Hypothyroidism: Status: Acute Qualifiers: Hypothyroidism type: unspecified Qualified Code(s): E03.9 - Hypothyroidism, unspecified (10) Dyslipidemia: Status: Acute (11) Nicotine dependence, cigarettes, uncomplicated: Status: Acute (12) Diabetes type 2, uncontrolled: Status: Acute (13) Paroxysmal SVT (supraventricular tachycardia): Status: Acute (14) Gastroparesis due to DM: Status: Suspected Permanent problem details: We will plan to send the patient for gastric emptying studies. (15) Cannabis use disorder, severe, dependence: Status: Acute Reason for Visit Reason for Visit: ABD Pain Brief History: 46-year-old lady with history of issues with recurrent abdominal discomfort, controlling her bowels, recurrent nausea and vomiting, following up with surgery in office previously, with referral for assessment by upper GI study, HIDA scan.? Gastric emptying study back in December showed delayed gastric emptying with only 6% emptying 1 hour, improved emptying by 2 hours with 48% emptying, HIDA scan in February was normal.? Previously also had EGD and colonoscopy in January, of GERD, gastritis, H. pylori and was treated with triple therapy.? Colonoscopy was WNL. She presented to ER for evaluation due to recurrent episodes of nausea, vomiting, abdominal pain, poor appetite and oral intake, although states has been managing to keep down her medications.? Pain mostly periumbilical.? Also reports having loose nonbloody stools. In ER she is noted afebrile, with tachypnea 22 breaths/min, saturating well on room air, appearing dry on exam, leukocytosis 14.8, however also hemoglobin 16.1 and platelets elevated at 456.? With hyponatremia 123.? Chloride 83.? Bicarb 18, anion gap 25.9.? ABG 7.57/18 point 6/113/17.? BUN 14, creatinine 0.6.? Glucose 273.? AST 57, ALT 74, alk phos 151.? CRP 3.? Albumin 4.6, globulin 3.9.? TSH 2.86.? Procalcitonin 0.11.? CT abdomen pelvis with reported enteroenteric intussusception in the right pelvis with intussusceptum nonenhancing.? Typically these are intermittent findings but can cause abdominal pain.? Lack of enhancement is concerning for possible ischemia.? No evidence of obstruction nor adjacent inflammatory changes.? There is nonspecific urinary bladder wall thickening felt to be due to underdistention.? Consider UA. UA positive for 4+ glucose, 3+ ketones.? Serum ketones negative. She had received IV fluid boluses, Haldol, Reglan, and is assessed by surgery in consultation. Hospital Course Hospital Course Presented with nausea, vomiting, abdominal pain most likely secondary to cyclic vomiting syndrome due to CBD use. She has known history of diabetic gastroparesis. There was also incidental finding of intussusception of small bowel. General surgery was consulted. Serial abdominal x-ray was done. No acute indication for surgical intervention at this time. Patient's labs improved since she got better during hospital stay with supportive care. Patient was counseled heavily to stop marijuana use. She was also found to be positive for C. difficile. She was started on vancomycin oral x10 days. However there was a questionable history of whether she has had C. difficile before. I did not find any evidence of that in the chart, patient states that she may have had it before. We will attempt to send Dificid x10 days to various pharmacies but it is out of stock and not available anywhere. Therefore she was placed on oral Vanco for 10 days and sent home in stable condition. Patient is to follow-up with general surgery as an outpatient, Dr. Escalera to follow-up with her chronic nausea issues. Patient agreeable and demonstrates understanding. She was also found to be slightly hyponatremic during hospital stay which improved after IV fluid use. During hospital stay she had waxing waning hypertension which most likely was secondary to anxiety and underlying generalized anxiety disorder. Therefore she was not started on any blood pressure medication. I encouraged her to follow-up with her primary care doctor to have ambulatory blood pressure monitoring. Patient felt better and discharged home in stable condition. Physical Exam Narrative: General: No acute distress Psych: AAOx3 Eyes: Sclerae are white Head/ENT: Normocephalic, symmetric CV: Regular pulse,, no JVD Lungs: Symmetrical chest rise Abdomen: soft, ND, nontender Ext: No obvious traumatic deformities Skin: warm Discharge Data Studies Completed and Pending Completed Studies During Hospitalization Category Date Time Status CT abdomen pelvis w con* [id number] Stat Cat Scan 03/31/22 16:41 Completed XR abdomen min 2V [id number] Stat Exams 04/01/22 08:25 Completed Pending at discharge Category Date Time Status Blood Culture Stat Lab 03/31/22 15:20 Results Complete Blood Count w/Auto AM LABS Lab 04/03/22 04:00 Ordered Comprehensive Metabolic Panel AM LABS Lab 04/03/22 04:00 Ordered Osmolality Serum Routine Lab 04/01/22 15:15 Received Osmolality Urine Routine Lab 04/01/22 19:45 Received Radiology Impressions Abdomen/Pelvis CT 03/31/22 16:41 IMPRESSION: 1. Entero enteric intussusception in the right pelvis with intussusceptium nonenhancing. Typically these are intermittent findings but can cause abdominal pain. The lack of enhancement is concerning for possible ischemia. No evidence of obstruction nor adjacent inflammatory changes. 2. There is nonspecific urinary bladder wall thickening, felt to be due to under distension. Consider urinalysis. ADDENDUM: 03/31/22 [id number] THIS REPORT CONTAINS FINDINGS THAT MAY BE CRITICAL TO PATIENT CARE. The findings were verbally communicated via telephone conference at 5:35 PM VICE PRESIDENT OF [employer]ALENT ACQUISITION on 03/31/2022 with Matthew Shea. The findings were acknowledged and understood. Abdomen X-Ray 04/01/22 08:25 IMPRESSION: 1. Nonobstructive bowel gas pattern. 2. Contrast noted throughout the colon and distally in the rectum. Laboratory Results WBC 6.7 10^3/uL (4.0-10.0) 04/02/22 02:20 RBC 4.80 10^6/uL (4.1-5.3) 04/02/22 02:20 Hgb 13.7 g/dL (11.5-15.3) 04/02/22 02:20 Hct 40.8 % (37.0-47.0) 04/02/22 02:20 MCV 85.0 fl (81-99) 04/02/22 02:20 MCH 28.5 pg (28.0-34.0) 04/02/22 02:20 MCHC 33.6 g/dL (30.0-36.0) 04/02/22 02:20 RDW 13.0 % (12.1-15.1) 04/02/22 02:20 Plt Count 298 10^3/cmm (130-400) 04/02/22 02:20 MPV 8.8 fL (7.4-10.4) 04/02/22 02:20 Neut % (Auto) 56.5 % 04/02/22 02:20 Lymph % (Auto) 31.4 % 04/02/22 02:20 Cook % (Auto) 9.6 % 04/02/22 02:20 Eos % (Auto) 1.2 % 04/02/22 02:20 Baso % (Auto) 0.9 % 04/02/22 02:20 Neut # (Auto) 3.77 10^3/uL (1.8-7.7) 04/02/22 02:20 Lymph # (Auto) 2.1 10^3/uL (0.8-4.8) 04/02/22 02:20 Cook # (Auto) 0.6 10^3/uL (0.2-0.9) 04/02/22 02:20 Eos # (Auto) 0.1 10^3/uL (0.0-0.8) 04/02/22 02:20 Baso # (Auto) 0.1 10^3/uL (0.0-0.1) 04/02/22 02:20 Nucleated RBC % (auto) 0 % 04/02/22 02:20 Nucleated RBCs # 0.0 /100WBC 04/02/22 02:20 Specimen Type Arterial 03/31/22 15:26 Sample Site Radial, left 03/31/22 15:26 ABG pH 7.57 (7.35-7.45) H* 03/31/22 15: ABG pCO2 18.6 mmHg (35-45) L* 03/31/22 15:26 ABG pO2 113.0 mmHg (80.0-100.0) H 03/31/22 15:26 ABG HCO3 17.0 mmol/L (22-26) L 03/31/22 15:26 ABG Base Excess -2.2 mmol/L (-2.0-2.0) L 03/31/22 15:26 Satish Test Pos 03/31/22 15:26 Hematocrit 46.7 % (37-47) 03/31/22 15:26 O2 Delivery Device Room air 03/31/22 15:26 FiO2 21.0 % 03/31/22 15:26 Telecommunications Operator ID Cak 03/31/22 15:26 Sodium 133 mmol/L (136-145) L 04/02/22 02:20 Potassium 3.4 mmol/L (3.5-5.1) L 04/02/22 02:20 Chloride 97 mmol/L (98-107) L 04/02/22 02:20 Carbon Dioxide 25 mmol/L (22-29) 04/02/22 02:20 Anion Gap 14.4 (5-19) 04/02/22 02:20 BUN 4 mg/dL (6-20) L 04/02/22 02:20 Creatinine 0.5 mg/dL (0.5-0.9) 04/02/22 02:20 GFR Calculation 131.7 mL/min (90-130) H 04/02/22 02:20 Glucose 119 mg/dL (65-115) H 04/02/22 02:20 POC Glucose 124 mg/dL (70-110) H 04/02/22 05:46 Calculated Osmolality 274 mOsm/kg (285-295) L 04/02/22 02:20 Lactic Acid 2.7 mmol/L (0.5-2.2) H 03/31/22 15:15 Lactic Acid (Sepsis) 1.4 mmol/L (0.5-2.2) 03/31/22 21:27 Calcium 8.7 mg/dL (8.5-10.5) 04/02/22 02:20 Total Bilirubin 0.5 mg/dL (0.15-1.2) 04/02/22 02:20 AST 45 U/L (0-32) H 04/02/22 02:20 ALT 52 U/L (0-33) H 04/02/22 02:20 Alkaline Phosphatase 114 U/L (35-105) H 04/02/22 02:20 C-Reactive Protein 3.0 mg/L (0.0-4.9) 03/31/22 15:00 Total Protein 6.6 g/dL (6.6-8.7) 04/02/22 02:20 Albumin 3.5 g/dL (3.5-5.2) 04/02/22 02:20 Globulin 3.1 g/dL (1.3-4.6) 04/02/22 02:20 Lipase 16 U/L (13-60) 03/31/22 15:00 Procalcitonin 0.11 ng/mL (0-0.5) 03/31/22 15:00 TSH 2.86 uIU/mL (0.27-4.20) 03/31/22 15:00 Urine Color Yellow (Yellow) 03/31/22 15:06 Urine Appearance Clear (CLEAR) 03/31/22 15:06 Urine pH 5 (5-7) 03/31/22 15:06 Ur Specific [place] 1.020 (1.005-1.030) 03/31/22 15:06 Urine Protein Neg (Negative) 03/31/22 15:06 Urine Glucose (UA) 4+ (Normal) H 03/31/22 15:06 Urine Ketones 3+ (Negative) H 03/31/22 15:06 Urine Blood Neg (Negative) 03/31/22 15:06 Urine Nitrate Negative (Negative) 03/31/22 15:06 Urine Bilirubin Neg (Negative) 03/31/22 15:06 Urine Urobilinogen Norm mg/dL (Negative) 03/31/22 15:06 Ur Leukocyte Esterase Negative (Negative) 03/31/22 15:06 Ur Random Sodium 45 mmol/L 04/01/22 19:45 Serum Ketones Negative (Negative) 03/31/22 15:15 Vitals Last Vital Signs Temp 98.1 F 04/02/22 07:07 Pulse 81 04/02/22 07:07 Resp 16 04/02/22 07:07 BP 160/100 04/02/22 07:21 Pulse Ox 97 04/02/22 07:07 O2 Del Method 04/02/22 07:07 Discharge Plan Discharge Patient Disposition: Home Condition: Stable Prescriptions: New Dificid 200 mg tablet 200 mg PO BID 10 Days Qty: 20 0RF Continued buprenorphine-naloxone 8-2 mg film 0.5 film buccal BID glipizide 10 mg tablet extended release 24hr 10 mg PO BID Qty: 60 5RF (DME) Diabetic Shoes with 3 inserts See Rx Instructions .Route .MEDSUPPLY Qty: 1 0RF Rx Instructions: As directed (DME) lancets [OneTouch Delica Plus Lancet] 30 gauge misc See Rx Instructions .ROUTE .COMPLEX Qty: 100 1RF Dose Instruction: USE DIRECTED TO TEST BLOOD SUGAR ONCE DAILY. Rx Instructions: USE DIRECTED TO TEST BLOOD SUGAR ONCE DAILY. (DME) pen needle, diabetic [1st Tier Unifine Pentips] 32 gauge x / needle See Rx Instructions .Route Qty: 50 12RF Rx Instructions: As directed, use with victoza to administer, daily. levothyroxine 50 mcg tablet See Rx Instructions .ROUTE .COMPLEX Qty: 30 5RF Dose Instruction: TAKE 1 TABLET BY MOUTH EVERY DAY IN THE MORNING Rx Instructions: TAKE 1 TABLET BY MOUTH EVERY DAY IN THE MORNING gabapentin 300 mg capsule See Rx Instructions .ROUTE .COMPLEX Qty: 240 5RF Dose Instruction: TAKE THREE CAPSULES BY MOUTH EVERY MORNING, TAKE TWO CAPSULES BY MOUTH AT NOON, TAKE THREE CAPSULES EVERY EVENING FOR CHRONIC HIP/BACK PAIN Rx Instructions: TAKE THREE CAPSULES BY MOUTH EVERY MORNING, TAKE TWO CAPSULES BY MOUTH AT NOON, TAKE THREE CAPSULES EVERY EVENING FOR CHRONIC HIP/BACK PAIN buspirone 30 mg tablet 15 mg PO BID Qty: 60 3RF paroxetine HCl [Paxil] 20 mg tablet 20 mg PO DAILY Qty: 30 5RF metformin 500 mg tablet 1,000 mg PO BID 30 Days Qty: 120 5RF Rx Instructions: 340 B medication ondansetron HCl 4 mg tablet See Rx Instructions .ROUTE .COMPLEX Qty: 30 1RF Dose Instruction: TAKE ONE TABLET BY MOUTH EVERY EIGHT HOURS NEEDED FOR NAUSEA AND VOMITING Rx Instructions: TAKE ONE TABLET BY MOUTH EVERY EIGHT HOURS NEEDED FOR NAUSEA AND VOMITING omeprazole 20 mg tablet,delayed release (DR/EC) 20 mg PO BID PRN (Reason: nausea/heartburn) Qty: 60 5RF Victoza 3-[place] 0.6 mg/0.1 mL (18 mg/3 mL) pen injector 1.8 mg SUBCUT DAILY PRN (Reason: high blood sugar) mirtazapine 30 mg tablet 30 mg PO BEDTIME Discharge Orders: Discharge Order (Routine); Ordered 04/02/22 Ordered By: Flaca Nichols Referrals: Israel Otero MD [Primary Care Provider] - 4-7 days (Please call Monday to schedule your appointment.) Sree Escalera MD [Physician] - 2 weeks (Please call Monday to schedule your appointment.) Henok Sanchez MD [Physician] - 2 weeks (bladder thickening) Discharge Diet: Usual diet Discharge Activity: Resume usual activity Patient Instructions: Clostridium Difficile, Vancomycin (By mouth), Opioid Safety Discharge Attestations Time Spent in Discharge Care*: greater than 30 min Status at Discharge: Cognitive status at discharge: cognitively intact , Behavioral status at discharge: cooperative , Quality Metrics Clinical Quality Measures [ No reported AMI, CVA or VTE this stay] Coding Level of Care Code Acute Chg FW DC note Diagnoses Bladder wall thickening N32.89 Transaminitis R74.01 Hyponatremia E87.1 Intussusception of small bowel K56.1 Generalized anxiety disorder F41.1 COPD (chronic obstructive pulmonary disease) with emphysema J43.9 Smoker F17.200 GERD (gastroesophageal reflux disease) K21.9 Hypothyroidism E03.9 Hypothyroidism type: unspecified Dyslipidemia E78.5 Nicotine dependence, cigarettes, uncomplicated F17.210 Diabetes type 2, uncontrolled E11.65 Paroxysmal SVT (supraventricular tachycardia) I47.1 Gastroparesis due to DM E11.43; K31.84 Cannabis use disorder, severe, dependence F12.20
--- NOTE | 2022-04-02 10:00 | PC.NURSE ---
Medication Incident: This nurse entered room for assessment and medication administration. Upon medication administration this nurse was reading off medications that were to be administered. When it came to the Buprenorphine-Naloxon 4-1mg pt stated, Oh, I don't need that. I have been cutting the ones here in half because they're way bigger than the ones I take at home and I still have some left right here (pt reached to bedside table) This nurse then asked pt what dosage she takes at home. Pt then reached down and pulled a bag up from the floor which contained several bottles of medication, including a bottle of Buprenorphine-Nalox. When this nurse examined the medications in the bag, specifically the Suboxone. When this nurse read the directions for the pts home dose of Suboxone it reads as follows, Buprenorphine-Nalox 8-2mg SL Film: Place 1/2 film under the tongue three times daily; supervising provider Jeramy Nj The order placed in her MAR reads as follows, Buprenorphine-Naloxon 4-1mg 1 each SUBLINGUAL BID VARUN Buprenorphine-Naloxon 4-1mg was not administered at this time due to pt taking what was left of the strip at her bedside. Pt medication bag was removed from room, bagged, labeled, and placed in medication room. Pt has discharge orders in at this time. Charge nurse notified.
[2022-04-02] MEDS: gabapentin 300 mg Capsule 900 MG PO (10:12)
[2022-04-02] MEDS: PARoxetine 20 mg Tablet PO (10:13)
[2022-04-02] MEDS: potassium chloride ER 20 mEq Tablet 40 MEQ PO (10:13)
[2022-04-02] MEDS: pantoprazole DR 40 mg Tablet PO (10:13)
[2022-04-02] MEDS: BuSPIRONE 10 mg Tablet 15 MG PO (10:13)
--- NOTE | 2022-04-02 12:20 | PC.NURSE ---
No Pharmacy has the Dificid in stock so patient will be discharged on Vancomycin 125mg 4 times a day by mouth. Prescription called to [facility] in [place].
--- NOTE | 2022-04-02 12:32 | PC.NURSE ---
Dr. Nichols gave the verbal order for patient to have the Vancomycin instead because the pharmacies do not have the Dificid.
[2022-04-04 15:42] LABS: Osmolality Urine 173 mOsm/kg (50-1200)
[2022-04-04 15:42] LABS: Osmolality Serum 280 mOsm/kg (278-305)
== END 2022-04-02 12:35 | disposition home or self-care (01) ==
LOC: ER 18:21 → MEDSURG 19:40
PROVIDERS: Admitting Provider Internal Medicine; Emergency Provider Emergency Medicine; PCP Family Medicine Adult Medicine; Visit Provider Internal Medicine
DX: N32.89 Other specified disorders of bladder (principal); R74.01 Elevation of levels of liver transaminase levels; E87.1 Hypo-osmolality and hyponatremia; K56.1 Intussusception; F41.1 Generalized anxiety disorder; J43.9 Emphysema, unspecified; F17.210 Nicotine dependence, cigarettes, uncomplicated; K21.9 Gastro-esophageal reflux disease without esophagitis; E03.9 Hypothyroidism, unspecified; E78.5 Hyperlipidemia, unspecified; E11.65 Type 2 diabetes mellitus with hyperglycemia; I47.1 Supraventricular tachycardia; E11.43 Type 2 diabetes mellitus with diabetic autonomic (poly)neuropathy; K31.84 Gastroparesis; F12.20 Cannabis dependence, uncomplicated; M06.9 Rheumatoid arthritis, unspecified; Z86.19 Personal history of other infectious and parasitic diseases; R11.2 Nausea with vomiting, unspecified; E86.0 Dehydration; F33.1 Major depressive disorder, recurrent, moderate; E11.42 Type 2 diabetes mellitus with diabetic polyneuropathy; G47.33 Obstructive sleep apnea (adult) (pediatric)
CPT/HCPCS: 12345; 36415; 36416; 36600; 74019; 74177; 80048; 80053; 81003; 82009; 82803; 82962; 83605; 83690; 83930; 83935; 84145; 84300; 84443; 85025; 86140; 87040; 87493; 96361; 96372; 96374; 96375; 96376; 99285; C9113; G0378; J0573; J1630; J1650; J1815; J2270; J2405; J2765; J3370; J7030; J7120; Q9963; Q9967

== ENCOUNTER 2022-05-01 14:28 | Emergency (ER) | payer MEDICAID, SELFPAY ==
[2022-05-01 14:43] VITALS: BP 153/85; PULSE 98; RESP 16; TEMP 36.6; O2SAT 99; BMI 25.9
--- NOTE | 2022-05-01 15:28 | W.ED.EXTPRO ---
HPI - Extremity Problem General: Chief complaint: Extremity Problem,Nontraumatic Stated complaint: both legs swollen Time Seen by Provider: 05/01/22 15:28 History of Present Illness: Ms. jean is a 46-year-old lady with history of diabetes, tobaccoism, dyslipidemia, history of substance abuse presenting to the emergency department due to lower extremity swelling and wounds. She reports first noticing wounds approximately 2 weeks ago and has since had increased pain and swelling left greater than right with additional development of wounds. A few days ago noticed 1 with more redness around it. Intensity pain is moderate to severe and limits ability to ambulate. Denies history of similar in the past. No other specific changes in health, exacerbating, or alleviating factors identified. Onset (ago): week(s) Pain Consistency: constant Location: left, right and lower extremity Quality: aching Radiation: none Relieving factors: nothing Exacerbating factors: weight bearing, walking and palpation Associated symptoms: Reports no associated symptoms Context: other Review of Systems General: Reports: 10 or more systems reviewed and unremarkable except in HPI and below PFSH ED PFSH: Medical History Cellulitis COPD (chronic obstructive pulmonary disease) with emphysema Dehydration, mild Diabetes type 2, uncontrolled Diabetic neuropathy Dyslipidemia Elevated transaminase level Gastritis GERD (gastroesophageal reflux disease) Hemochromatosis carrier History of rheumatoid arthritis Hx of hepatitis C treatment with Dr. Morgan ~1999 Hypothyroidism Insomnia Insomnia disorder, with other sleep disorder, recurrent Insulin dependent diabetes mellitus Iron overload Lumbar disc disease with radiculopathy JOSE (obstructive sleep apnea) per sleep study 2010, CPAP of 13 recommended at that time, no longer with machine Osteoarthritis involving multiple joints on both sides of body Paroxysmal SVT (supraventricular tachycardia) Polysubstance (including opioids) dependence w/o physiol dependence smoker, severe cannabis, Opioid, Methamphetamines Psychiatric care PTSD (post-traumatic stress disorder) Right flank pain, chronic Scoliosis associated with other condition Smoker Supraventricular tachycardia (~04/2020) identified during ED visit 04/2020, treated with 6mg adenosine with conversion to sinus Surgical History History of hysterectomy (~2011) also Kimberly urethral plication History of incision and drainage (~2013) right upper extremity and R lower extremity History of tubal ligation History of umbilical hernia repair (~2011) Hx of cataract surgery bilateral eye Family History Father Diabetes Mother Diabetes Grandfather Pacemaker Denies family history of Stroke Social History Smoking and tobacco status: current every day smoker cigarettes Packs smoked per day: 0.5 Years cigarettes smoked: 33 Quit status (tobacco): has tried quititng Number of times tried to quit tobacco: 5 Second hand smoke exposure: Yes Smoking risk assessment/counseling performed?: No Alcohol intake: former Desire information about alcohol rehabilitation?: No Counseling given: No Desire information about substance/drug rehabilitation?: No Counseling given: No Caregiver/support person: No Lives independently: Yes Household members: spouse Housing: House Marital status: Life Partner Number of children: 2 Number of grandchildren: 0 Highest education level completed: High School Graduate service: No Current occupational status: unemployed Pets and animals: Yes Pets & animals: dog(s) History of recent travel: No Current gender identity: Female Sirena/Yarsanism: Orthodoxy Physical Exam Const: COMMON NORMALS: alert GENERAL APPEARANCE: cooperative and well developed HENMT: COMMON NORMALS: normocephalic and atraumatic HEAD & SCALP: normocephalic and atraumatic THROAT: posterior oropharynx normal Eye: COMMON NORMALS: conjunctivae normal CONJUNCTIVA: Yes conjunctivae normal SCLERA: sclerae normal Neck/C-Spine: COMMON NORMALS: supple GENERAL: Yes trachea midline Resp: COMMON NORMALS: clear to auscultation bilaterally EFFORT & INSPECTION: Yes able to speak in complete sentences AUSCULTATION: clear to auscultation bilaterally Cardio: COMMON NORMALS: regular rate and regular rhythm RATE: regular rate RHYTHM: regular rhythm GI: COMMON NORMALS: Soft to palpation PALPATION: Yes Soft to palpation and No Tenderness to palpation present (GI) Extremity: GENERAL: Yes normal exam except as noted and Yes edema Neuro: COMMON NORMALS: moves all extremities SENSORIUM/ORIENTATION: Yes alert and No Orientation impaired Psych: COMMON NORMALS: mental status grossly normal and Normal thought process present THOUGHT PROCESS: Normal thought process present Skin: NARRATIVE SKIN EXAM: Bilateral superficial lower extremity ulcerations, few with mild surrounding erythema, appears to be combination of chronic noninfected wounds and subacute infected wounds Course Vital Signs: Vital signs: Vital Signs Temperature 97.8 F 05/01/22 14:43 Pulse Rate 98 05/01/22 14:43 Respiratory Rate 16 05/01/22 14:43 Blood Pressure 168/96 05/01/22 16:00 Pulse Oximetry 99 05/01/22 17:30 Oxygen Delivery Me thod 05/01/22 14:43 MDM - Extremity (Nontraumatic) Medical Decision Making 46-year-old lady with history of diabetes presenting with concern over increased lower extremity pain. Exam as above. Patient is nontoxic in appearance and vital signs are satisfactory.. EKG shows sinus rhythm with nonspecific ST segment abnormalities, no STEMI. No leukocytosis or other significant hematologic abnormalities. Some hyperglycemia and evidence of dehydration on metabolic panel. Transaminitis again noted. No DVT on ultrasound. Patient proved with analgesia, fluids, and dose of antibiotics. Given patient's overall clinical appearance and appearance of wounds as well as laboratory findings I believe trial of outpatient management for acute on chronic wound infection is reasonable with strict return precautions. The results of ED evaluation were discussed with the patient including prescriptions and/or symptomatic cares (if applicable) including appropriate and responsible use, followup plan, and return precautions. The patient verbalized understanding and felt safe for discharge. Medical Records I reviewed the patient's medical records. Lab Data I reviewed the patient's lab results. 05/01/22 15:57 05/01/22 15:57 Radiology Impressions Venous Duplex 05/01/22 15:43 IMPRESSION: No sonographic evidence of deep vein thrombosis. Laboratory Results WBC 7.6 10^3/uL (4.0-10.0) 05/01/22 15:57 RBC 4.14 10^6/uL (4.1-5.3) 05/01/22 15:57 Hgb 12.0 g/dL (11.5-15.3) 05/01/22 15:57 Hct 35.8 % (37.0-47.0) L 05/01/22 15:57 MCV 86.5 fl (81-99) 05/01/22 15:57 MCH 29.0 pg (28.0-34.0) 05/01/22 15:57 MCHC 33.5 g/dL (30.0-36.0) 05/01/22 15:57 RDW 13.2 % (12.1-15.1) 05/01/22 15:57 Plt Count 345 10^3/cmm (130-400) 05/01/22 15:57 MPV 9.0 fL (7.4-10.4) 05/01/22 15:57 Neut % (Auto) 62.3 % 05/01/22 15:57 Lymph % (Auto) 25.0 % 05/01/22 15:57 Spink % (Auto) 8.7 % 05/01/22 15:57 Eos % (Auto) 2.6 % 05/01/22 15:57 Baso % (Auto) 1.1 % 05/01/22 15:57 Neut # (Auto) 4.75 10^3/uL (1.8-7.7) 05/01/22 15:57 Lymph # (Auto) 1.9 10^3/uL (0.8-4.8) 05/01/22 15:57 Spink # (Auto) 0.7 10^3/uL (0.2-0.9) 05/01/22 15:57 Eos # (Auto) 0.2 10^3/uL (0.0-0.8) 05/01/22 15:57 Baso # (Auto) 0.1 10^3/uL (0.0-0.1) 05/01/22 15:57 Nucleated RBC % (auto) 0 % 05/01/22 15:57 Nucleated RBCs # 0.0 /100WBC 05/01/22 15:57 Sodium 129 mmol/L (136-145) L 05/01/22 15:57 Potassium 3.9 mmol/L (3.5-5.1) 05/01/22 15:57 Chloride 92 mmol/L (98-107) L 05/01/22 15:57 Carbon Dioxide 29 mmol/L (22-29) 05/01/22 15:57 Anion Gap 11.9 (5-19) 05/01/22 15:57 BUN 8 mg/dL (6-20) 05/01/22 15:57 Creatinine 0.4 mg/dL (0.5-0.9) L 05/01/22 15:57 GFR Calculation 170.4 mL/min (90-130) H 05/01/22 15:57 Glucose 297 mg/dL (65-115) H 05/01/22 15:57 POC Glucose 294 mg/dL (70-110) H 05/01/22 16:08 Calculated Osmolality 277 mOsm/kg (285-295) L 05/01/22 15:57 Calcium 9.1 mg/dL (8.5-10.5) 05/01/22 15:57 Total Bilirubin 0.3 mg/dL (0.15-1.2) 05/01/22 15:57 AST 31 U/L (0-32) 05/01/22 15:57 ALT 40 U/L (0-33) H 05/01/22 15:57 Alkaline Phosphatase 126 U/L (35-105) H 05/01/22 15:57 NT-Pro-B Natriuret Pep 120 pg/mL (0-125) 05/01/22 15:57 Total Protein 6.9 g/dL (6.6-8.7) 05/01/22 15:57 Albumin 3.6 g/dL (3.5-5.2) 05/01/22 15:57 Globulin 3.3 g/dL (1.3-4.6) 05/01/22 15:57 Discharge Plan Discharge Patient Disposition: Home Clinical Impression: Wounds, multiple, Cellulitis, Leg pain Condition: Stable Prescriptions: New oxycodone 5 mg tablet 5 mg PO Q4H PRN (Reason: pain) Qty: 10 0RF clindamycin HCl 300 mg capsule 300 mg PO Q8H 10 Days Qty: 30 0RF No Action mirtazapine 30 mg tablet 30 mg PO BEDTIME Qty: 30 5RF imipramine HCl 25 mg tablet 25 mg PO .qhs Qty: 30 5RF glipizide 10 mg tablet extended release 24hr 10 mg PO BID Qty: 60 5RF levothyroxine 50 mcg tablet 50 mcg PO DAILY Qty: 30 5RF (DME) pen needle, diabetic [1st Tier Unifine Pentips] 32 gauge x /32 needle See Rx Instructions .Route Qty: 50 12RF Rx Instructions: As directed, use with victoza to administer, daily. paroxetine HCl [Paxil] 20 mg tablet 20 mg PO DAILY Qty: 30 5RF Victoza 3-Nav[place]et 0.6 mg/0.1 mL (18 mg/3 mL) pen injector 1.8 mg SUBCUT DAILY PRN (Reason: high blood sugar) Qty: 9 0RF (DME) lancets [OneTouch Delica Plus Lancet] 30 gauge misc See Rx Instructions .ROUTE .COMPLEX Qty: 100 1RF Dose Instruction: USE DIRECTED TO TEST BLOOD SUGAR ONCE DAILY. Rx Instructions: USE DIRECTED TO TEST BLOOD SUGAR ONCE DAILY. gabapentin 300 mg capsule See Rx Instructions .ROUTE .COMPLEX Qty: 240 5RF Dose Instruction: TAKE THREE CAPSULES BY MOUTH EVERY MORNING, TAKE TWO CAPSULES BY MOUTH AT NOON, TAKE THREE CAPSULES EVERY EVENING FOR CHRONIC HIP/BACK PAIN Rx Instructions: TAKE 3 CAPS in am, TAKE 2 CAPS AT NOON, TAKE 3 CAPS in pm (DME) Diabetic Shoes with 3 inserts See Rx Instructions .Route .MEDSUPPLY Qty: 1 0RF Rx Instructions: As directed metformin 500 mg tablet 1,000 mg PO BID 30 Days Qty: 120 5RF Rx Instructions: 340 B medication omeprazole 20 mg tablet,delayed release (DR/EC) 20 mg PO BID PRN (Reason: nausea/heartburn) Qty: 60 5RF buprenorphine-naloxone 8-2 mg film 0.5 film sublingual TID Qty: 45 0RF ondansetron HCl 4 mg tablet 4 mg PO Q8H Qty: 90 1RF buspirone 30 mg tablet 15 mg PO BID Qty: 60 5RF Discharge Orders: Discharge ED (Routine); Ordered 05/01/22 Ordered By: Matthew Shea Referrals: Israel Otero MD [Primary Care Provider] - Discharge Diet: Diabetic Discharge Activity: Increase activity as tolerated Activity Restrictions/Additional Instructions: Thank you for visiting the emergency department. You were seen and evaluated for leg pain. The most likely cause of your leg pain is related to acute infection of a wound. This will be treated with antibiotics. Given your history of diabetes you need to watch this closely for worsening and return immediately if you feel any worse. Please follow-up with your primary care provider. You may use ulou-vle-unteaef medications such as acetaminophen and ibuprofen for pain however please do not exceed the daily recommended dosage as listed on the packaging and please keep in mind that many namebrand medications contain the same active ingredients. Return to the emergency department for uncontrolled symptoms as discussed or anything else that you are concerned about a feel needs emergency department evaluation. Coding Level of Care Code ED Puttying And Calking Supervisor for Esperanza Hernandez
--- NOTE | 2022-05-01 15:43 | USR_ITS ---
PROCEDURE INFORMATION: Exam: US Duplex Lower Extremity Veins, Bilateral Exam date and time: 05/01/2022 4:40 PM Age: 46 years old Clinical indication: Edema, localized and swelling (edema) of limb; Lower extremity, bilateral; Additional info: Lower ext edema, pain, l>r TECHNIQUE: Imaging protocol: Real-time Duplex ultrasound of the bilateral extremities with 2-D lucas scale, color Doppler flow and spectral waveform analysis with image documentation. Complete exam focused on the bilateral lower extremity veins. COMPARISON: US CV segpressure [facility] [place] [id number] 09/17/2021 6:15 PM FINDINGS: Right deep veins: Unremarkable. The common femoral, femoral, proximal profunda femoral, popliteal, posterior tibial and peroneal veins are patent without thrombus. Normal Doppler waveforms. Normal compressibility and/or augmentation response. Right superficial veins: Saphenofemoral junction is patent without thrombus. Left deep veins: Unremarkable. The common femoral, femoral, proximal profunda femoral, popliteal, posterior tibial and peroneal veins are patent without thrombus. Normal Doppler waveforms. Normal compressibility and/or augmentation response. Left superficial veins: Saphenofemoral junction is patent without thrombus. Soft tissues: Subcutaneous edema in the calves. US/CV venous duplex [facility] [id number] IMPRESSION: No sonographic evidence of deep vein thrombosis.
[2022-05-01 16:00] VITALS: BP 168/96; O2SAT 100
--- NOTE | 2022-05-01 16:02 | ECG_ITS ---
[facility] Test Date: 2022-05-01 Pat Name: Mena Cano Department: Room: Gender: Female Resident Physician In Radiology: : 1975 Requested By: Matthew Shea Order Number: [id number] Zoraida MD: Chris Allen M.D. Measurements Intervals [place] Rate: 92 P: 44 NC: 156 QRS: 11 QRSD: 77 T: 26 QT: 350 QTc: 433 Interpretive Statements SINUS RHYTHM LOW QRS VOLTAGE IN PRECORDIAL LEADS [QRS DEFLECTION < 1.0 mV IN CHEST LEADS] POSSIBLE ANTERIOR MYOCARDIAL INFARCTION , PROBABLY OLD [30 ms Q WAVE IN V3/V4, OR R < 0.2 mV IN V4] Compared to ECG 12/24/2021 08:31:29 Low QRS voltage now present Myocardial infarct finding still present Electronically Signed On 05-02-2022 15:01:04 HRIS SPECIALIST by Chris Allen M.D. [id number]
[2022-05-01 16:12] LABS: Glucose Point of Care 294 mg/dL (70-110)
[2022-05-01 16:23] LABS: Basophils # 0.1 10^3/uL (0.0-0.1); Basophils % 1.1 %; Eosinophils # 0.2 10^3/uL (0.0-0.8); Eosinophils % 2.6 %; Hematocrit 35.8 % (37.0-47.0); Lymphocytes # 1.9 10^3/uL (0.8-4.8); Mean Corpuscular HGB Conc 33.5 g/dL (30.0-36.0); Mean Corpuscular Volume 86.5 fl (81-99); Monocytes # 0.7 10^3/uL (0.2-0.9); Monocytes % 8.7 %; Neutrophils # 4.75 10^3/uL (1.8-7.7); Neutrophils % 62.3 %; Nucleated Red Blood Cells % 0 %; Platelet Count 345 10^3/cmm (130-400); Red Blood Count 4.14 10^6/uL (4.1-5.3); Red Cell Distribution Width 13.2 % (12.1-15.1); White Blood Count 7.6 10^3/uL (4.0-10.0)
[2022-05-01 16:30] VITALS: O2SAT 99
[2022-05-01 16:50] LABS: Alanine Aminotransferase 40 U/L (0-33); Albumin Level 3.6 g/dL (3.5-5.2); Alkaline Phosphatase 126 U/L (35-105); Anion Gap 11.9 (5-19); Aspartate Amino Transferase 31 U/L (0-32); Blood Urea Nitrogen 8 mg/dL (6-20); Calcium 9.1 mg/dL (8.5-10.5); Carbon Dioxide 29 mmol/L (22-29); Chloride 92 mmol/L (98-107); Creatinine Clr Calc Pharmacy 151.5777; Globulin 3.3 g/dL (1.3-4.6); Glomerular Filtration Rate 170.4 mL/min (90-130); Glucose 297 mg/dL (65-115); NT Pro B Type Natriuretic Pept 120 pg/mL (0-125); Osmolality Calculated 277 mOsm/kg (285-295); Potassium 3.9 mmol/L (3.5-5.1); Sodium 129 mmol/L (136-145); Total Bilirubin 0.3 mg/dL (0.15-1.2); Total Protein 6.9 g/dL (6.6-8.7)
[2022-05-01 17:00] VITALS: O2SAT 99
[2022-05-01 17:30] VITALS: O2SAT 99
[2022-05-01] MEDS: sodium chloride 0.9% 1,000 ML 999 ML IV (18:03)
[2022-05-01] MEDS: clindamycin 600 MG/50 ML PREMIX 100 MG IV (18:06)
[2022-05-01] MEDS: oxyCODONE 5 mg IR Tab/Cap PO (18:08)
== END 2022-05-01 18:40 | disposition home or self-care (01) ==
PROVIDERS: Emergency Provider Emergency Medicine; PCP Family Medicine Adult Medicine
DX: L97.929 Non-pressure chronic ulcer of unspecified part of left lower leg with unspecified severity (principal); L97.919 Non-pressure chronic ulcer of unspecified part of right lower leg with unspecified severity; M79.605 Pain in left leg; M79.604 Pain in right leg; L03.116 Cellulitis of left lower limb; L03.115 Cellulitis of right lower limb; F17.210 Nicotine dependence, cigarettes, uncomplicated
CPT/HCPCS: 36416; 80053; 82962; 83880; 85025; 87040; 93005; 93970; 96365; 99285; J3490; J7030

== ENCOUNTER 2022-05-17 09:44 | Outpatient (CLI) | payer MEDICAID, SELFPAY ==
--- NOTE | 2022-05-17 10:00 | FL_ITS ---
WS: [id number] Small bowel follow-through, 05/17/2022 Clinical Data: Nausea, frequent vomiting, many foods cannot be. Comparison: None. Fluoroscopy time: 0min [id number] # of spot films: 5 Findings: The preliminary film demonstrated a large amount of fecal material throughout the colon. There was a levoscoliosis of the lumbar spine with osteoarthritis of the vertebral bodies. The patient swallowed the barium in the stomach filled. There was slow progression of the barium from the stomach into the duodenum, jejunum and then the ileum. There is no obstruction, dilatation, polyp or mass noted. The v alvulae conniventes appeared normal. Slow progression of the barium occurred and at greater than 2 ho urs postingestion there was a large amount of barium within the stomach. The barium barely filled th e terminal ileum, and only a small amount of barium proceeded into the cecum. FL/[place] [id number] Impression: 1. Normal small bowel follow-through. 2. Slow progression of barium from the stomach to the terminal ileum.
== END 2022-05-17 09:45 | disposition home or self-care (01) ==
LOC: RAD 09:46
PROVIDERS: PCP Family Medicine Adult Medicine; Visit Provider Surgery
DX: R10.9 Unspecified abdominal pain (principal); R11.2 Nausea with vomiting, unspecified
CPT/HCPCS: 74250

== ENCOUNTER 2022-06-13 10:11 | Outpatient (CLI) | payer MEDICAID, SELFPAY ==
--- NOTE | 2022-06-13 10:26 | FL_ITS ---
WS: [id number] Exam: FL upper GI w air* [id number] Date/Time of Exam: 06/13/2022 10:37 AM Reason For Exam: ABD PAIN/NAUSEA VOMITING Swallowing function was normal. The esophagus is smooth in contour with normal motility. The stomach is freely distensible without evidence of mass or ulcer. Prominent gastric mucosa suggesting gastriti s. The duodenal bulb is smooth in contour without evidence of ulceration. The duodenal C-loop is not widened or displaced. Barium spills freely into the proximal small bowel. FL/FL upper GI w air* [id number] IMPRESSION: 1. Prominent gastric mucosa suggesting gastritis. 2. No sign of gastric or duodenal ulcer. 3. Constipation.
== END 2022-06-13 10:12 | disposition home or self-care (01) ==
LOC: RAD 10:11
PROVIDERS: PCP Family Medicine Adult Medicine; Visit Provider Surgery
DX: R10.9 Unspecified abdominal pain (principal); R11.2 Nausea with vomiting, unspecified
CPT/HCPCS: 74246

== ENCOUNTER 2022-07-16 10:00 | Observation (INO) | payer MEDICAID, SELFPAY ==
[2022-07-16] VITALS (8 sets, daily range): BP systolic 121–140; BP diastolic 64–86; PULSE 70–98; RESP 15–28; TEMP 36.4–36.9; O2SAT 94–100; BMI 26.5
--- NOTE | 2022-07-16 11:30 | USR_ITS ---
PROCEDURE INFORMATION: Exam: US Duplex Lower Extremity Veins, Bilateral Exam date and time: 07/16/2022 12:24 PM Age: 46 years old Clinical indication: Pain; Leg, lower; Bilateral; Additional info: Calf pain, swelling TECHNIQUE: Imaging protocol: Real-time duplex ultrasound of the bilateral extremities with 2-D lucas scale, color Doppler flow and spectral waveform analysis including responses to compression and other maneuvers (when performed) with image documentation. Complete exam focused on the lower extremity veins. COMPARISON: US CV segpressure [facility] [place] [id number] 09/17/2021 6:15 PM FINDINGS: Right deep veins: Unremarkable. The common femoral, femoral, proximal profunda femoral and popliteal veins are patent without thrombus. Normal Doppler waveforms. Normal compressibility and/or augmentation response. Right superficial veins: Saphenofemoral junction is patent without thrombus. Left deep veins: Unremarkable. The common femoral, femoral, proximal profunda femoral and popliteal veins are patent without thrombus. Normal Doppler waveforms. Normal compressibility and/or augmentation response. Left superficial veins: Saphenofemoral junction is patent without thrombus. Soft tissues: Unremarkable. US/CV venous duplex [facility] [id number] IMPRESSION: No evidence of deep vein thrombosis.
--- NOTE | 2022-07-16 11:34 | W.ED.EXTPRO ---
HPI - Extremity Problem General: Chief complaint: Extremity Problem,Nontraumatic Stated complaint: legs swelling Time Seen by Provider: 07/16/22 11:08 Source: patient and old records reviewed Mode of arrival: ambulatory Limitations: no limitations History of Present Illness: 46-year-old female with a history of poorly controlled diabetes and a history of picking and scratching who presents with chief complaint of bilateral lower extremity wounds with surrounding redness, swelling, calf pain, and starting to have sweats. She takes liraglutide, glipizide, metformin. She has not checked her blood sugar over the last few days but says prior to this her blood sugar was not well controlled and was often in the 300s or higher. She reports that with her anxiety she picks at her skin and with her diabetes they frequently become infected. She has multiple different wounds on her lower extremities on both sides between the knees and ankles both on the anterior posterior and lateral aspects. She has scarred lesions on her back and arms. Patient tells us that these wounds on her legs have been there for about 4 weeks and she has been putting [id number] antibiotic cream on them. This does not seem to help. Associated symptoms: Reports rash; Deny chest pain or fever(s) Review of Systems General: Reports: 10 or more systems reviewed and unremarkable except in HPI and below Const: Reports: chills and fatigue; Denies: fever(s) or body aches Eyes: Denies: change in vision ENMT: Denies: throat pain Card: Reports: edema; Denies: chest pain or syncope Resp: Denies: dyspnea or productive cough GI: Reports: abdominal pain, nausea, vomiting and other (Patient reports daily nausea vomiting and abdominal pain which is chronic ); Denies: diarrhea : Denies: flank pain, dysuria or urinary frequency Musc: Reports: extremity pain, extremity swelling and limited range of motion; Denies: neck pain, back pain, joint swelling, joint redness or joint warmth Skin/Breast: Reports: rash, skin tenderness, skin swelling, changing lesions and changes in skin color Neuro: Denies: headache(s), numbness in extremities or lack of coordination PFSH ED PFSH: Medical History Cellulitis COPD (chronic obstructive pulmonary disease) with emphysema Dehydration, mild Diabetes type 2, uncontrolled Diabetic neuropathy Dyslipidemia Elevated transaminase level Encounter for monitoring Suboxone maintenance therapy [facility] 06/02/2022 GERD (gastroesophageal reflux disease) Hemochromatosis carrier History of rheumatoid arthritis Hx of hepatitis C treatment with Dr. Morgan ~1999 Hypothyroidism Insomnia Insomnia disorder, with other sleep disorder, recurrent Insulin dependent diabetes mellitus Intussusception of small bowel Iron overload Lumbar disc disease with radiculopathy JOSE (obstructive sleep apnea) per sleep study 2010, CPAP of 13 recommended at that time, no longer with machine Osteoarthritis involving multiple joints on both sides of body Paroxysmal SVT (supraventricular tachycardia) Polysubstance (including opioids) dependence w/o physiol dependence smoker, severe cannabis, Opioid, Methamphetamines Psychiatric care PTSD (post-traumatic stress disorder) Right flank pain, chronic Scoliosis associated with other condition Smoker Supraventricular tachycardia (~04/2020) identified during ED visit 04/2020, treated with 6mg adenosine with conversion to sinus Transaminitis Surgical History History of hysterectomy (~2011) also Kimberly urethral plication History of incision and drainage (~2013) right upper extremity and R lower extremity History of tubal ligation History of umbilical hernia repair (~2011) Hx of cataract surgery bilateral eye Family History Father Diabetes Mother Diabetes Grandfather Pacemaker Denies family history of Stroke Social History Smoking and tobacco status: current every day smoker cigarettes Packs smoked per day: 0.5 Years cigarettes smoked: 33 Quit status (tobacco): has tried quititng Number of times tried to quit tobacco: 5 Second hand smoke exposure: Yes Smoking risk assessment/counseling performed?: No Alcohol intake: former Desire information about alcohol rehabilitation?: No Counseling given: No Desire information about substance/drug rehabilitation?: No Counseling given: No Caregiver/support person: No Lives independently: Yes Household members: spouse Housing: House Marital status: Life Partner Number of children: 2 Number of grandchildren: 0 Highest education level completed: High School Graduate service: No Current occupational status: unemployed Pets and animals: Yes Pets & animals: dog(s) Current gender identity: Female Sirena/Christianity: [employer] Physical Exam Const: COMMON NORMALS: no limitations, alert and well nourished EXAM LIMITATIONS: no altered mental status HENMT: COMMON NORMALS: normocephalic and atraumatic HEAD & SCALP: normocephalic and atraumatic EXTERNAL EAR: Yes other (Scarred lesion right ear) MOUTH: Normal oral and palatal mucosa present; no muffled voice TEETH & GINGIVA: Yes dentures and Yes edentulous THROAT: posterior oropharynx normal Eye: COMMON NORMALS: EOMs intact bilaterally, conjunctivae normal and no scleral icterus CONJUNCTIVA: Yes conjunctivae normal Neck/C-Spine: COMMON NORMALS: no JVD GENERAL: Yes normal visual inspection and Yes trachea midline Resp: COMMON NORMALS: normal respiratory effort and No use of accessory muscles Cardio: COMMON NORMALS: no JVD and regular rhythm RATE: tachycardic RHYTHM: regular rhythm PERIPHERAL PULSES: radial pulses present GI: COMMON NORMALS: Soft to palpation and non-tender PALPATION: Yes Soft to palpation and No Guarding due to palpation present (GI) Extremity: COMMON NORMALS: no joint enlargement NARRATIVE EXTREMITY EXAM: There are several superficial wounds on the right lower extremity and left lower extremity between the knees and ankles. The largest are on the anterior shins. The skin is shiny and taut. There is edema of the compartments on both lower extremities with pitting from the ankles to the knees. No evidence of septic arthritis. There is evidence of cellulitis. Neuro: COMMON NORMALS: moves all extremities, no focal motor deficits and no sensory deficits noted SENSORIUM/ORIENTATION: Yes alert SPEECH: speech normal Psych: COMMON NORMALS: mental status grossly normal, Normal thought process present, cooperative, normal affect and speech normal SPEECH: Yes normal speech THOUGHT PROCESS: Normal thought process present Skin: COMMON NORMALS: turgor normal and no jaundice GENERAL SKIN EXAM: turgor normal, erythema, eschar, Excoriation, no fluctuance, no induration, no jaundice, no mottling, no petechiae and no purpura WOUNDS: Yes wounds noted Course Vital Signs: Vital signs: Vital Signs Temperature 97.5 F L 07/16/22 10:51 Pulse Rate 70 07/16/22 15:00 Respiratory Rate 15 07/16/22 15:00 Blood Pressure 125/79 07/16/22 15:00 Pulse Oximetry 97 07/16/22 16:02 Oxygen Delivery Me thod 07/16/22 16:02 MDM - Extremity (Nontraumatic) Medical Decision Making 46-year-old female presents to the emergency department with cellulitis of lower extremity wounds. She is immunocompromised secondary to uncontrolled diabetes. Blood sugar over 500 here. Risk factors also include history of drug abuse and psychiatric illness with anxiety. It is unclear whether her lesions are the result of methamphetamine use, picking, or immunocompromise. Regardless, my plan is to obtain blood cultures, start Rocephin and vancomycin, fluid resuscitate, rule out DKA, obtain hemoglobin A1c, ultrasound both lower extremities to rule out DVT, and then determine based on work-up whether the patient needs to be admitted or not. Update: I was able to get the patient's blood sugar to trend down with using IV fluids and insulin. Her hemoglobin A1c is 11.9%. She is severely uncontrolled. She does not have diabetic ketoacidosis. She has a mildly elevated white blood cell count. Ultrasound of both lower extremities was negative for DVT. She has pseudohyponatremia. I was debating on whether to send the patient home with rapid acting insulin or whether to admit her. She needs to have her diabetes controlled or her wounds will not heal. She does have active cellulitis. Patient has not been checking her blood sugar at home the last few days. I ultimately decided I would not feel comfortable sending her home with rapid acting insulin since she has not been shown to be responsible checking her blood sugar levels. Therefore she was admitted to the hospital for acute intervention and education while we treat her cellulitis. Lab Data 07/16/22 11:50 07/16/22 11:50 Radiology Impressions Venous Duplex 07/16/22 11:30 IMPRESSION: No evidence of deep vein thrombosis. Duplex Scan Lower Extremity Artery 07/16/22 14:32 IMPRESSION: No stenosis or occlusion. Tibia/Fibula X-Ray 07/16/22 15:48 IMPRESSION: No bony abnormalities. Laboratory Results WBC 10.1 10^3/uL (4.0-10.0) H 07/16/22 11:50 RBC 4.38 10^6/uL (4.1-5.3) 07/16/22 11:50 Hgb 12.8 g/dL (11.5-15.3) 07/16/22 11:50 Hct 38.4 % (37.0-47.0) 07/16/22 11:50 MCV 87.7 fl (81-99) 07/16/22 11:50 MCH 29.2 pg (28.0-34.0) 07/16/22 11:50 MCHC 33.3 g/dL (30.0-36.0) 07/16/22 11:50 RDW 13.2 % (12.1-15.1) 07/16/22 11:50 Plt Count 334 10^3/cmm (130-400) 07/16/22 11:50 MPV 9.8 fL (7.4-10.4) 07/16/22 11:50 Neut % (Auto) 69.7 % 07/16/22 11:50 Lymph % (Auto) 17.5 % 07/16/22 11:50 [place] % (Auto) 9.5 % 07/16/22 11:50 Eos % (Auto) 1.8 % 07/16/22 11:50 Baso % (Auto) 0.9 % 07/16/22 11:50 Neut # (Auto) 7.01 10^3/uL (1.8-7.7) 07/16/22 11:50 Lymph # (Auto) 1.8 10^3/uL (0.8-4.8) 07/16/22 11:50 [place] # (Auto) 1.0 10^3/uL (0.2-0.9) H 07/16/22 11:50 Eos # (Auto) 0.2 10^3/uL (0.0-0.8) 07/16/22 11:50 Baso # (Auto) 0.1 10^3/uL (0.0-0.1) 07/16/22 11:50 Nucleated RBC % (auto) 0 % 07/16/22 11:50 Nucleated RBCs # 0.0 /100WBC 07/16/22 11:50 Sodium 120 mmol/L (136-145) L 07/16/22 11:50 Potassium 4.5 mmol/L (3.5-5.1) 07/16/22 11:50 Chloride 85 mmol/L (98-107) L 07/16/22 11:50 Carbon Dioxide 26 mmol/L (22-29) 07/16/22 11:50 Anion Gap 13.5 (5-19) 07/16/22 11:50 BUN 9 mg/dL (6-20) 07/16/22 11:50 Creatinine 0.5 mg/dL (0.5-0.9) 07/16/22 11:50 GFR Calculation 131.7 mL/min (90-130) H 07/16/22 11:50 Glucose 553 mg/dL (65-115) H* 07/16/22 11:50 POC Glucose 432 mg/dL (70-110) H 07/16/22 13:18 Estimat Average Glucose 295 07/16/22 11:50 Hemoglobin A1c 11.9 % (4.0-6.0) H 07/16/22 11:50 Calculated Osmolality 274 mOsm/kg (285-295) L 07/16/22 11:50 Lactic Acid 2.0 mmol/L (0.5-2.2) 07/16/22 11:50 Calcium 8.8 mg/dL (8.5-10.5) 07/16/22 11:50 Magnesium 1.8 mg/dL (1.7-2.3) 07/16/22 11:50 Total Bilirubin 0.4 mg/dL (0.15-1.2) 07/16/22 11:50 AST 42 U/L (0-32) H 07/16/22 11:50 ALT 62 U/L (0-33) H 07/16/22 11:50 Alkaline Phosphatase 197 U/L (35-105) H 07/16/22 11:50 Total Protein 7.0 g/dL (6.6-8.7) 07/16/22 11:50 Albumin 3.6 g/dL (3.5-5.2) 07/16/22 11:50 Globulin 3.4 g/dL (1.3-4.6) 07/16/22 11:50 HCG, Qual Negative (Negative) 07/16/22 11:30 Urine Opiates Screen Negative ng/mL (Negative) 07/16/22 11:30 Ur Barbiturates Screen Negative ng/mL (Negative) 07/16/22 11:30 Ur Phencyclidine Scrn Negative ng/mL (Negative) 07/16/22 11:30 Ur Amphetamines Screen Negative ng/mL (Negative) 07/16/22 11:30 U Benzodiazepines Scrn Positive ng/mL (Negative) H 07/16/22 11:30 Urine Cocaine Screen Negative ng/mL (Negative) 07/16/22 11:30 U Marijuana (THC) Screen Positive ng/mL (Negative) H 07/16/22 11:30 Serum Ketones Negative (Negative) 07/16/22 11:50 Discharge Plan Discharge Patient Disposition: Admitted As Inpatient Admit Provider: Jose D Rhoades Clinical Impression: Diabetes type 2, uncontrolled, Cellulitis, Lower extremity edema, Hemoglobin A1c greater than 9.0%, Multiple open wounds Condition: Stable Coding Level of Care Code ED Emergency Registrar for Esperanza Hernandez
--- NOTE | 2022-07-16 11:36 | PC.NURSE ---
pt presents to ER with c/o non healing wounds to her legs. pt reports she is a diabetic, knows her blood sugar has been high recently 300s-500s, but has not been able to check it over the last couple days. pt reports she has been taking her medications for diabetes. pt denies fevers, nausea, or vomiting. does report dry mouth. multiple wounds noted to BLE and wound to right elbow. no active drainage. pt does have surrounding eythema with warmth, and pitting edema to BLE. Education provided on importance of blood sugar checks and maintaining blood sugars WNL. Educated pt on risks associated with elevated blood sugars, as well as importance of proper diet. pt reports she is not able to eat a lot due to tummy issues but does attempt to get adequate amounts of protein in her diet. pt reports she is going to schedule an appointment for a hemoglobin A1C and to inquire about a continuous glucose monitor.
[2022-07-16 11:37] LABS: Glucose Point of Care 543 mg/dL (70-110)
[2022-07-16 11:50] LABS: HCG Qualitative Urine. Negative (Negative)
[2022-07-16] MEDS: sodium chloride 0.9% 1,973.13 ML 1973.13 ML IV (12:23)
[2022-07-16] MEDS: cefTRIAXone 2,000 MG in sodium chloride 0.9% (plus) 50 ML 100 MG IV (12:36)
[2022-07-16 12:38] LABS: Basophils # 0.1 10^3/uL (0.0-0.1); Basophils % 0.9 %; Eosinophils # 0.2 10^3/uL (0.0-0.8); Eosinophils % 1.8 %; Hematocrit 38.4 % (37.0-47.0); Hemoglobin 12.8 g/dL (11.5-15.3); Lymphocytes # 1.8 10^3/uL (0.8-4.8); Lymphocytes % 17.5 %; Mean Corpuscular HGB Conc 33.3 g/dL (30.0-36.0); Mean Corpuscular Hemoglobin 29.2 pg (28.0-34.0); Mean Corpuscular Volume 87.7 fl (81-99); Mean Platelet Volume 9.8 fL (7.4-10.4); Monocytes % 9.5 %; Neutrophils # 7.01 10^3/uL (1.8-7.7); Neutrophils % 69.7 %; Nucleated Red Blood Cells % 0 %; Platelet Count 334 10^3/cmm (130-400); Red Blood Count 4.38 10^6/uL (4.1-5.3); Red Cell Distribution Width 13.2 % (12.1-15.1); White Blood Count 10.1 10^3/uL (4.0-10.0)
[2022-07-16 12:49] LABS: Ketone (Acetest) Serum Negative (Negative)
[2022-07-16 12:55] LABS: Alanine Aminotransferase 62 U/L (0-33); Albumin Level 3.6 g/dL (3.5-5.2); Alkaline Phosphatase 197 U/L (35-105); Anion Gap 13.5 (5-19); Aspartate Amino Transferase 42 U/L (0-32); Blood Urea Nitrogen 9 mg/dL (6-20); Calcium 8.8 mg/dL (8.5-10.5); Carbon Dioxide 26 mmol/L (22-29); Chloride 85 mmol/L (98-107); Globulin 3.4 g/dL (1.3-4.6); Glomerular Filtration Rate 131.7 mL/min (90-130); Magnesium 1.8 mg/dL (1.7-2.3); Osmolality Calculated 274 mOsm/kg (285-295); Potassium 4.5 mmol/L (3.5-5.1); Sodium 120 mmol/L (136-145); Total Bilirubin 0.4 mg/dL (0.15-1.2)
[2022-07-16 12:59] LABS: Estmated Average Glucose 295; Hemoglobin A1C 11.9 % (4.0-6.0)
[2022-07-16 13:04] LABS: Glucose 553 mg/dL (65-115)
[2022-07-16 13:21] LABS: Glucose Point of Care 432 mg/dL (70-110)
[2022-07-16] MEDS: insulin regular-human 100 units/1 mL 8 UNIT IVP (13:27)
[2022-07-16] MEDS: vancomycin 1,250 MG/250 ML PIGGYBACK 250 MG IV (13:32)
[2022-07-16 13:57] LABS: Amphetamines Screen Urine Negative (Negative); Barbiturates Screen Urine Negative (Negative); Benzodiazepines Screen Urine Positive (Negative); Cocaine Screen Urine Negative (Negative); Opiate Screen Urine Negative (Negative); PCP Screen Urine Negative (Negative); THC Screen Urine Positive (Negative)
[2022-07-16] MEDS: morphine 4 mg/mL SDV 1 mL IVP (14:14)
[2022-07-16 14:24] LABS: Glucose Point of Care 296 mg/dL (70-110)
--- NOTE | 2022-07-16 14:32 | USR_ITS ---
PROCEDURE INFORMATION: Exam: US Duplex Lower Extremity Arteries Exam date and time: 07/16/2022 3:08 PM Age: 46 years old Clinical indication: Other: Ulcers; Additional info: Diabetic ulcer TECHNIQUE: Imaging protocol: Real-time ultrasound scan of the arteries of the bilateral lower extremities with 2-D lucas scale, color Doppler flow and spectral waveform analysis. Images documented and saved. COMPARISON: [place] [id number] 07/16/2022 12:24 PM FINDINGS: Right common femoral artery: No occlusion or significant stenosis. Normal waveform. Right superficial femoral artery: No occlusion or significant stenosis. Normal waveform. Right popliteal artery: No occlusion or significant stenosis. Normal waveform. Right calf/foot arteries: No occlusion or significant stenosis in the visualized arteries. Normal waveforms. Dorsalis pedis artery is patent. Left common femoral artery: No occlusion or significant stenosis. Normal waveform. Left superficial femoral artery: No occlusion or significant stenosis. Normal waveform. Left popliteal artery: No occlusion or significant stenosis. Normal waveform. Left calf/foot arteries: No occlusion or significant stenosis in the visualized arteries. Normal waveforms. Dorsalis pedis artery is patent. US/[place] [id number] IMPRESSION: No stenosis or occlusion.
--- NOTE | 2022-07-16 14:33 | P.HP_ITS ---
Providers/Chief Complaint Admitting Physician: Jose D Rhoades MD Primary Care Provider: Israel Otero MD Chief Complaint: legs swelling History of Present Illness Mena Cano is a 46 year old female with a past medical history of noninsulin-dependent type 2 diabetes mellitus, hypothyroidism, history, depression, COPD, dyslipidemia, GERD who presents to [facility] due to concerns for diabetic ulcers, bilateral shins and elevated blood sugars. Patient tells me that she has type 2 diabetes mellitus, at 1 point she was on NovoLog 70/30, but she was taken off of it due to insurance reasons, placed on glipizide, liraglutide, and metformin however she feels that it does not control blood sugars. She tells me that her bilateral shins, had areas that would cause pruritus that she would itch at it she does have diabetic neuropathy, and over the course of 24 hours she has developed diabetic ulcers in her bilateral shins so she came to the the ER for evaluation. No fevers, chills, no history of cat or dog bites. No history of sepsis or septic shock from diabetic ulcers. She does have severe diabetic neuropathy. Review of Systems General: Reports: ROS unobtainable due to mental status Const: Denies: fever(s) Eyes: Denies: change in vision Card: Denies: chest pain or palpitations Resp: Denies: dyspnea GI: Denies: abdominal pain, nausea or vomiting : Denies: flank pain or difficulty voiding Musc: Denies: joint pain or joint redness Skin/Breast: Reports: rash, pruritus and erythema Neuro: Reports: numbness in extremities; Denies: headache(s) Psych: Denies: anxiety Endo: Denies: polyuria or polydipsia Medications/Allergies Home Medications Medication Instructions Recorded Confirmed Last Taken Type metformin 500 mg tablet 1,000 mg PO BID Diabetes 30 days 01/18/22 05/20/22 03/30/22 Rx #120 tabs omeprazole 20 mg tablet,delayed 20 mg PO BID PRN nausea/heartburn 03/31/22 05/20/22 Unknown Rx release #60 tabs buprenorphine 8 mg-naloxone 2 mg 0.5 film sublingual TID #45 ea 04/04/22 05/20/22 Unknown Rx sublingual film Diabetic Shoes with 3 inserts #1 ea 05/05/22 05/20/22 Unknown Rx gabapentin 300 mg capsule See Rx Instructions .Route 05/05/22 05/20/22 Unknown Rx .COMPLEX #240 caps glipizide 10 mg tablet, extended 10 mg PO BID diabetes #60 tabs 05/05/22 05/20/22 Unknown Rx release 24 hr imipramine HCl 25 mg tablet 25 mg PO .qhs sleep #30 tabs 05/05/22 05/20/22 Unknown Rx lancets 30 gauge (OneTouch Delica #100 ea 05/05/22 05/20/22 Unknown Rx Plus Lancet) mirtazapine 30 mg tablet 30 mg PO BEDTIME mental health & 05/05/22 05/20/22 Unknown Rx sleep #30 tabs paroxetine HCl 20 mg tablet (Paxil) 20 mg PO DAILY anxiety #30 tabs 05/05/22 05/20/22 Unknown Rx pen needle, diabetic 32 gauge x #50 ea 05/05/22 05/20/22 Unknown Rx 5/32 (1st Tier Unifine Pentips) buspirone 30 mg tablet 15 mg PO BID anxiety #60 tabs 05/17/22 05/20/22 Unknown Rx levothyroxine 50 mcg tablet 50 mcg PO DAILY low thyroid #30 06/07/22 Unknown Rx tabs liraglutide 0.6 mg/0.1 mL (18 mg/3 1.8 mg (0.3 mL) SUBCUT DAILY PRN 06/07/22 Unknown Rx mL) subcutaneous pen injector high blood sugar #9 mL (Victoza 3-Navneet) Allergies Allergy/AdvReac Type Severity Reaction Status Date / Time amoxicillin Allergy Unknown Verified 07/16/22 10:51 PFSH Acute PFSH: Medical History Cellulitis COPD (chronic obstructive pulmonary disease) with emphysema Dehydration, mild Diabetes type 2, uncontrolled Diabetic neuropathy Dyslipidemia Elevated transaminase level Encounter for monitoring Suboxone maintenance therapy [facility] 06/02/2022 GERD (gastroesophageal reflux disease) Hemochromatosis carrier History of rheumatoid arthritis Hx of hepatitis C treatment with Dr. Morgan ~1999 Hypothyroidism Insomnia Insomnia disorder, with other sleep disorder, recurrent Insulin dependent diabetes mellitus Intussusception of small bowel Iron overload Lumbar disc disease with radiculopathy JOSE (obstructive sleep apnea) per sleep study 2010, CPAP of 13 recommended at that time, no longer with machine Osteoarthritis involving multiple joints on both sides of body Paroxysmal SVT (supraventricular tachycardia) Polysubstance (including opioids) dependence w/o physiol dependence smoker, severe cannabis, Opioid, Methamphetamines Psychiatric care PTSD (post-traumatic stress disorder) Right flank pain, chronic Scoliosis associated with other condition Smoker Supraventricular tachycardia (~04/2020) identified during ED visit 04/2020, treated with 6mg adenosine with conversion to sinus Transaminitis Surgical History History of hysterectomy (~2011) also Kimberly urethral plication History of incision and drainage (~2013) right upper extremity and R lower extremity History of tubal ligation History of umbilical hernia repair (~2011) Hx of cataract surgery bilateral eye Family History Father Diabetes Mother Diabetes Grandfather Pacemaker Denies family history of Stroke Social History Smoking and tobacco status: current every day smoker cigarettes Packs smoked per day: 0.5 Years cigarettes smoked: 33 Quit status (tobacco): has tried quititng Number of times tried to quit tob acco: 5 Second hand smoke exposure: Yes Smoking risk assessment/counseling performed?: No Alcohol intake: former Desire information about alcohol rehabilitation?: No Counseling given: No Desire information about substance/drug rehabilitation?: No Counseling given: No Caregiver/support person: No Lives independently: Yes Household members: spouse Housing: House Marital status: Life Partner Number of children: 2 Number of grandchildren: 0 Highest education level completed: High School Graduate service: No Current occupational status: unemployed Pets and animals: Yes Pets & animals: dog(s) Current gender identity: Female Sirena/Hinduism: Anglican Vitals/I&O/Wt Last Vital Signs Temp 97.5 F L 07/16/22 10:51 Pulse 98 07/16/22 10:51 Resp 20 H 07/16/22 14:14 BP 137/86 07/16/22 10:51 Pulse Ox 99 07/16/22 14:14 O2 Del Method 07/16/22 10:51 07/15/22 07/16/22 07/16/22 22:59 06:59 14:59 Intake Total 50 / 50 Balance 50 / 50 Weight last 48 hrs Weight 65.771 kg Physical Exam Const: COMMON NORMALS: no acute distress and patient oriented x3 HENMT: COMMON NORMALS: normocephalic HEAD & SCALP: normocephalic Eye: COMMON NORMALS: Equal, round and reactive pupils present and EOMs intact bilaterally Neck/C-Spine: COMMON NORMALS: full ROM and no lymphadenopathy Lymph: LYMPHATIC: no lymphadenopathy noted Resp: COMMON NORMALS: normal respiratory effort, No retractions, No use of accessory muscles and clear to auscultation bilaterally AUSCULTATION: clear to auscultation bilaterally Cardio: COMMON NORMALS: no JVD, regular rate, regular rhythm, S1 normal heart sound present and S2 normal heart sound present RATE: regular rate RHYTHM: regular rhythm HEART SOUNDS: S1 normal heart sound present and S2 normal heart sound present GI: COMMON NORMALS: Normal to inspection, nondistended, normoactive bowel sounds present, Soft to palpation and non-tender : COMMON NORMALS: Yes no CVA tenderness Extremity: NARRATIVE EXTREMITY EXAM: Right lower extremity -Nonpitting edema -Atkinson, shallow, 2 x 3 cm diabetic ulcer, with surrounding erythema irregular borders -DP PT pulses palpable but diminished Left lower extremity -Nonpitting edema -Atkinson, shallow 3 x 3 cm diabetic ulcer with surrounding erythema with irregular borders -She also has a superficial ulcer on the heel, irregular borders measuring 1 x 1 cm -DP PT pulses palpable but diminished Neuro: COMMON NORMALS: patient oriented x3, CN's II-XII intact bilaterally, moves all extremities and no focal motor deficits Psych: COMMON NORMALS: mental status grossly normal Data 07/16/22 11:50 07/16/22 11:50 Micro: Microbiology 07/16/22 11:50 Blood Culture - Preliminary Blood SPECIMEN COLLECTED 07/16/22 11:54 Blood Culture - Preliminary Blood SPECIMEN COLLECTED A&P Assessment and plan (1) Cellulitis: (2) Diabetic ulcer of atkinson associated with diabetes mellitus due to underlying condition: (3) Hemoglobin A1c greater than 9.0%: (4) Lower extremity edema: (5) Major depressive disorder, recurrent, moderate: (6) Generalized anxiety disorder: (7) COPD (chronic obstructive pulmonary disease) with emphysema: (8) Gastroparesis due to DM: (9) Diabetes type 2, uncontrolled: (10) Hypothyroidism: Qualifiers: Hypothyroidism type: unspecified Qualified Code(s): E03.9 - Hypothyroidism, unspecified (11) Dyslipidemia: (12) Elevated blood sugar: (13) Pseudohyponatremia: (14) Goals of care, counseling/discussion: Plan Diabetic ulcers with cellulitis Plan -Wound care wet-to-dry dressing -Broad-spectrum antibiotic therapy vancomycin, cefepime -DP PT pulses are palpable but diminished we will do arterial ultrasounds -Continue to monitor -Full code -Lovenox for DVT prophylaxis Hyperglycemia -No significant evidence of DVT KA, potassium 4.5, bicarb 26, anion gap 13.5 -Blood sugar 553 -Start high-dose sliding scale -With Lantus 10 units every afternoon Type 2 diabetes mellitus, A1c 11.9 Transaminitis, monitor Pseudohyponatremia, corrected sodium 1 27-1 31 Nonpitting edema, monitor Attestations Medical Necessity Statement*: Patient requires hospitalization for cellulitis, diabetic ulcers, elevated blood sugars, lower extremity edema, pseudohyponatremia, outpatient observation Coding Level of Care Code Acute Code for [facility] Diagnoses Cellulitis L03.90 Diabetic ulcer of atkinson associated with diabetes mellitus due to underlying condition E08.622; L97.809 Hemoglobin A1c greater than 9.0% R73.09 Lower extremity edema R60.0 Major depressive disorder, recurrent, moderate F33.1 Generalized anxiety disorder F41.1 COPD (chronic obstructive pulmonary disease) with emphysema J43.9 Gastroparesis due to DM E11.43; K31.84 Diabetes type 2, uncontrolled E11.65 Hypothyroidism E03.9 Hypothyroidism type: unspecified Dyslipidemia E78.5 Elevated blood sugar R73.9 Pseudohyponatremia R79.89 Goals of care, counseling/discussion Z71.89
[2022-07-16 15:12] LABS: Glucose Point of Care 257 mg/dL (70-110)
--- NOTE | 2022-07-16 15:48 | XRR_ITS ---
PROCEDURE INFORMATION: Exam: XR Right Tibia and Fibula Exam date and time: 07/16/2022 4:13 PM Age: 46 years old Clinical indication: Swelling, leg or foot; Additional info: Atkinson ulcer TECHNIQUE: Imaging protocol: Radiologic exam of the right tibia and fibula. Views: 2 views. COMPARISON: [place] [id number] 07/16/2022 3:08 PM FINDINGS: Bones/joints: Normal. No fracture or bony deformity. No radiographic evidence of osteomyelitis. Soft tissues: Small wedge-shaped hypodensity along the superficial anterior margin of the soft tissues mid shaft possibly representing a skin ulcer XR/XR tibia fibula RT 2V [id number] IMPRESSION: No bony abnormalities.
--- NOTE | 2022-07-16 15:48 | XRR_ITS ---
PROCEDURE INFORMATION: Exam: XR Left Tibia and Fibula Exam date and time: 07/16/2022 4:11 PM Age: 46 years old Clinical indication: Swelling, leg or foot; Additional info: Atkinson ulcer TECHNIQUE: Imaging protocol: Radiologic exam of the left tibia and fibula. Views: 2 views. COMPARISON: [place] [id number] 07/16/2022 3:08 PM FINDINGS: Bones/joints: Normal. No fracture or bony deformity. No underlying osseous lesion or evidence of osteomyelitis. Soft tissues: Unremarkable. XR/XR tibia fibula LT 2V [id number] IMPRESSION: Normal examination of the left lower leg.
[2022-07-16 16:10] LABS: Glucose Point of Care 239 mg/dL (70-110)
[2022-07-16] MEDS: BuSPIRONE 10 mg Tablet 15 MG PO (16:23)
[2022-07-16] MEDS: cefepime 1,000 MG in sodium chloride 0.9% (plus) 50 ML 100 MG IV (16:26)
[2022-07-16] MEDS: pantoprazole 40 mg SDV IVP (16:35)
[2022-07-16] MEDS: enoxaparin 40 mg/0.4 mL Syringe SUBCUT (16:35)
[2022-07-16] MEDS: insulin glargine 100 units/1 mL 10 UNIT SUBCUT ×2 (16:36→16:38)
[2022-07-16] MEDS: insulin lispro 100 unit/1 mL SUBCUT (16:36)
[2022-07-16 18:41] LABS: Erythrocyte Sedimentation Rate 21 mm/hr (0-15)
[2022-07-16] MEDS: morphine 4 mg/mL SDV 1 mL 2 MG IVP (18:48)
[2022-07-16 18:54] LABS: Lactic Sepsis W/Reflex 1.7 mmol/L (0.5-2.2)
[2022-07-16 19:04] LABS: Procalcitonin 0.05 ng/mL (0-0.5); Thyroid Stimulating Hormone 5.37 uIU/mL (0.27-4.20)
[2022-07-16] MEDS: buprenorphine-naloxone 4-1 mg Film 1 EACH SUBLINGUAL (21:00)
[2022-07-16] MEDS: mirtazapine 30 mg Tablet PO (21:00)
[2022-07-16] MEDS: gabapentin 300 mg Capsule 900 MG PO (21:00)
[2022-07-16 22:27] LABS: Glucose Point of Care 275 mg/dL (70-110)
[2022-07-16] MEDS: insulin lispro 100 unit/1 mL 10 UNIT SUBCUT (23:32)
[2022-07-17] VITALS: BP 111/68; PULSE 100; RESP 16; TEMP 36.8; O2SAT 96
[2022-07-17] MEDS: vancomycin 1,250 MG/250 ML PIGGYBACK 250 MG IV (01:27)
[2022-07-17 02:49] LABS: Glucose Point of Care 216 mg/dL (70-110)
[2022-07-17 04:00] VITALS: BP 118/75; PULSE 91; RESP 15; TEMP 36.4; O2SAT 97
[2022-07-17] MEDS: pantoprazole 40 mg SDV IVP (04:29)
[2022-07-17 05:39] LABS: Basophils # 0.1 10^3/uL (0.0-0.1); Basophils % 0.8 %; Eosinophils # 0.2 10^3/uL (0.0-0.8); Eosinophils % 2.4 %; Hematocrit 35.3 % (37.0-47.0); Hemoglobin 11.5 g/dL (11.5-15.3); Lymphocytes # 1.9 10^3/uL (0.8-4.8); Lymphocytes % 21.4 %; Mean Corpuscular HGB Conc 32.6 g/dL (30.0-36.0); Mean Corpuscular Hemoglobin 28.9 pg (28.0-34.0); Mean Corpuscular Volume 88.7 fl (81-99); Mean Platelet Volume 9.8 fL (7.4-10.4); Monocytes # 0.9 10^3/uL (0.2-0.9); Monocytes % 9.5 %; Neutrophils # 5.91 10^3/uL (1.8-7.7); Neutrophils % 65.2 %; Nucleated Red Blood Cells % 0 %; Platelet Count 307 10^3/cmm (130-400); Red Blood Count 3.98 10^6/uL (4.1-5.3); Red Cell Distribution Width 13.3 % (12.1-15.1); White Blood Count 9.1 10^3/uL (4.0-10.0)
[2022-07-17 06:00] LABS: Alanine Aminotransferase 49 U/L (0-33); Albumin Level 2.8 g/dL (3.5-5.2); Alkaline Phosphatase 132 U/L (35-105); Anion Gap 13.2 (5-19); Aspartate Amino Transferase 37 U/L (0-32); Blood Urea Nitrogen 8 mg/dL (6-20); Calcium 8.2 mg/dL (8.5-10.5); Carbon Dioxide 25 mmol/L (22-29); Chloride 97 mmol/L (98-107); Glomerular Filtration Rate 170.4 mL/min (90-130); Glucose 234 mg/dL (65-115); Magnesium 1.7 mg/dL (1.7-2.3); Osmolality Calculated 278 mOsm/kg (285-295); Potassium 4.2 mmol/L (3.5-5.1); Sodium 131 mmol/L (136-145); Total Bilirubin 0.2 mg/dL (0.15-1.2); Total Protein 5.8 g/dL (6.6-8.7)
[2022-07-17 06:54] LABS: Glucose Point of Care 215 mg/dL (70-110)
[2022-07-17] MEDS: cefepime 1,000 MG in sodium chloride 0.9% (plus) 50 ML 100 MG IV (07:06)
[2022-07-17] MEDS: insulin glargine 100 units/1 mL 10 UNIT SUBCUT (07:28)
[2022-07-17 08:00] VITALS: BP 114/76; PULSE 96; RESP 17; O2SAT 97
[2022-07-17 08:35] VITALS: PULSE 86
[2022-07-17] MEDS: gabapentin 300 mg Capsule 900 MG PO (09:26)
[2022-07-17] MEDS: levothyroxine 50 mcg Tablet PO (09:27)
[2022-07-17] MEDS: BuSPIRONE 10 mg Tablet 15 MG PO (09:27)
[2022-07-17] MEDS: PARoxetine 20 mg Tablet PO (09:27)
[2022-07-17] MEDS: buprenorphine-naloxone 4-1 mg Film 1 EACH SUBLINGUAL (09:27)
--- NOTE | 2022-07-17 09:56 | P.DS_ITS ---
Discharge Providers Date of Admission: 07/16/22 14:47 Date of Discharge: July 17, 2022 Attending Provider at Admission: Jose D Rhoades MD Attending Provider at Discharge: Jose D Rhoades MD Primary Care Provider: Israel Otero MD Diagnoses at Discharge Discharge Diagnosis (1) Cellulitis: Status: Acute (2) Diabetic ulcer of bronson associated with diabetes mellitus due to underlying condition: Status: Acute (3) Hemoglobin A1c greater than 9.0%: Status: Acute (4) Lower extremity edema: Status: Acute (5) Major depressive disorder, recurrent, moderate: Status: Acute (6) Generalized anxiety disorder: Status: Acute (7) COPD (chronic obstructive pulmonary disease) with emphysema: Status: Acute (8) Gastroparesis due to DM: Status: Suspected Permanent problem details: We will plan to send the patient for gastric emptying studies. (9) Diabetes type 2, uncontrolled: Status: Acute (10) Hypothyroidism: Status: Acute Qualifiers: Hypothyroidism type: unspecified Qualified Code(s): E03.9 - Hypothyroidism, unspecified (11) Dyslipidemia: Status: Acute (12) Elevated blood sugar: Status: Acute (13) Pseudohyponatremia: Status: Acute (14) Goals of care, counseling/discussion: Status: Acute Reason for Visit Reason for Visit: legs swelling Hospital Course Hospital Course Mena Cano is a 46 year old female with a past medical history of noninsulin-dependent type 2 diabetes mellitus, hypothyroidism, history, depression, COPD, dyslipidemia, GERD who presents to [facility] due to concerns for diabetic ulcers, bilateral shins and elevated blood sugars.? Patient tells me that she has type 2 diabetes mellitus, at 1 point she was on NovoLog 70/30, but she was taken off of it due to insurance reasons, placed on glipizide, liraglutide, and metformin however she feels that it does not control blood sugars.? She tells me that her bilateral shins, had areas that would cause pruritus that she would itch at it she does have diabetic neuropathy, and over the course of 24 hours she has developed diabetic ulcers in her bilateral shins so she came to the the ER for evaluation.? No fevers, chills, no history of cat or dog bites.? No history of sepsis or septic shock from diabetic ulcers.? She does have severe diabetic neuropathy. Patient was admitted to [facility] for diabetic ulcers, with surrounding cellulitis, received antibiotic therapy, venous ultrasound negative for DVT, arterial ultrasound negative for any significant arterial disease, x- rays no underlying osteomyelitis. She responded AntiBac therapy, I did strongly recommend for her to stay 1 more day as inpatient for IV antibiotics however patient declined, she wanted to go home, discussed risk of going home too early, risks of sepsis, septic shock, risk of amputation, she voiced understanding ultras answered, however she was adamant about going home. Discharged on 7 remaining days of antibiotic therapy, keep area clean and dry, keep dry dressing on top follow-up with wound care. For her type 2 diabetes mellitus, had hyperglycemia during hospitalization hemoglobin A1c 11.9, managed with Lantus, NovoLog, diabetic education stop glipizide. She has been on 7030 in the past, but was taken off of it due to insurance reasons. At discharge I will discharge on Lantus 10 units every morning. With a NovoLog sliding scale. Please take Lantus 10 units every morning -Please monitor your blood sugars closely -Monitor your blood sugars 3 times daily as after meals -Please record your blood sugars, and a blood sugar log -For your NovoLog -Please inject blood sugar after meals based on sliding scale provided -Do not inject insulin if you do not eat as hypoglycemia kills -This is a NovoLog sliding scale -Insulin sliding ?fingerstick? Insulin ?141-180?2 units/sq 181-220?4 units/sq ?221-260?6 units/sq ?261-300?8 units/sq ?301-350 10 units/sq ?351-400 12 units/sq > 400? 14 units/sq -If your blood sugar is greater than 500 go to the emergency room -If your blood sugar is less than 60 or at anytime you feel lightheaded or dizzy or diaphoretic or have chest palpitations check your blood sugar, and eat a hard candy or drink orange juice and go immediately to the emergency room -Remember hypoglycemia kills, so if his blood sugar is less than 60 we have to increase it by taking in a sugary meal such as a hard candy or orange juice and go to the emergency room -If you have any questions please call us where here to help -For your antibiotics please take cefdinir, and doxycycline as prescribed -Follow-up with wound care -Keep diabetic ulcers clean and dry -Follow-up with Dr. Otero in 1 to 3 days Physical Exam Const: COMMON NORMALS: no acute distress and patient oriented x3 Resp: COMMON NORMALS: normal respiratory effort, No retractions, No use of accessory muscles and clear to auscultation bilaterally AUSCULTATION: clear to auscultation bilaterally Cardio: COMMON NORMALS: regular rate, regular rhythm, S1 normal heart sound present and S2 normal heart sound present RATE: regular rate RHYTHM: re gular rhythm HEART SOUNDS: S1 normal heart sound present and S2 normal heart sound present GI: COMMON NORMALS: Normal to inspection, nondistended, normoactive bowel sounds present and non-tender Extremity: COMMON NORMALS: no pedal edema Neuro: COMMON NORMALS: patient oriented x3 Psych: COMMON NORMALS: mental status grossly normal Skin: NARRATIVE SKIN EXAM: Diabetic ulcer, right leg, on the bronson, measuring 3 x 4 cm, no active drainage, surrounding cellulitis, good granulation tissue, with 1 satellite lesion lateral to it measuring 1 x 1 cm Diabetic ulcer left leg, on the bronson, measuring 2 x 2 cm, no active drainage surrounding cellulitis, granulation tissue She also has area of cellulitis, left leg, left heel measuring 1 x 1 cm Discharge Data Studies Completed and Pending Completed Studies During Hospitalization Category Date Time Status XR tibia fibula LT 2V [id number] Routine Exams 07/16/22 15:48 Completed XR tibia fibula RT 2V [id number] Routine Exams 07/16/22 15:48 Completed US arterial duplex lower extremity bilat [CV arterial Ultrasound 07/16/22 14:32 [place] [id number]] Stat US venous duplex lower extremity bilat [CV venous Ultrasound 07/16/22 11:30 [place] [address]] Stat Pending at discharge Category Date Time Status Blood Culture Stat Lab 07/16/22 11:50 Results Complete Blood Count w/Auto AM LABS Lab 07/18/22 04:00 Ordered Complete Blood Count w/Auto AM LABS Lab 07/19/22 04:00 Ordered Comprehensive Metabolic Panel AM LABS Lab 07/18/22 04:00 Ordered Comprehensive Metabolic Panel AM LABS Lab 07/19/22 04:00 Ordered Magnesium AM LABS Lab 07/18/22 04:00 Ordered Magnesium AM LABS Lab 07/19/22 04:00 Ordered Phosphorus AM LABS Lab 07/18/22 04:00 Ordered Phosphorus AM LABS Lab 07/19/22 04:00 Ordered Radiology Impressions Venous Duplex 07/16/22 11:30 IMPRESSION: No evidence of deep vein thrombosis. Duplex Scan Lower Extremity Artery 07/16/22 14:32 IMPRESSION: No stenosis or occlusion. Tibia/Fibula X-Ray 07/16/22 15:48 IMPRESSION: No bony abnormalities. Laboratory Results WBC 9.1 10^3/uL (4.0-10.0) 07/17/22 05:01 RBC 3.98 10^6/uL (4.1-5.3) L 07/17/22 05:01 Hgb 11.5 g/dL (11.5-15.3) 07/17/22 05:01 Hct 35.3 % (37.0-47.0) L 07/17/22 05:01 MCV 88.7 fl (81-99) 07/17/22 05:01 MCH 28.9 pg (28.0-34.0) 07/17/22 05:01 MCHC 32.6 g/dL (30.0-36.0) 07/17/22 05:01 RDW 13.3 % (12.1-15.1) 07/17/22 05:01 Plt Count 307 10^3/cmm (130-400) 07/17/22 05:01 MPV 9.8 fL (7.4-10.4) 07/17/22 05:01 Neut % (Auto) 65.2 % 07/17/22 05:01 Lymph % (Auto) 21.4 % 07/17/22 05:01 [place] % (Auto) 9.5 % 07/17/22 05:01 Eos % (Auto) 2.4 % 07/17/22 05:01 Baso % (Auto) 0.8 % 07/17/22 05:01 Neut # (Auto) 5.91 10^3/uL (1.8-7.7) 07/17/22 05:01 Lymph # (Auto) 1.9 10^3/uL (0.8-4.8) 07/17/22 05:01 [place] # (Auto) 0.9 10^3/uL (0.2-0.9) 07/17/22 05:01 Eos # (Auto) 0.2 10^3/uL (0.0-0.8) 07/17/22 05:01 Baso # (Auto) 0.1 10^3/uL (0.0-0.1) 07/17/22 05:01 Nucleated RBC % (auto) 0 % 07/17/22 05:01 Nucleated RBCs # 0.0 /100WBC 07/17/22 05:01 ESR 21 mm/hr (0-15) H 07/16/22 17:43 Sodium 131 mmol/L (136-145) L 07/17/22 05:01 Potassium 4.2 mmol/L (3.5-5.1) 07/17/22 05:01 Chloride 97 mmol/L (98-107) L 07/17/22 05:01 Carbon Dioxide 25 mmol/L (22-29) 07/17/22 05:01 Anion Gap 13.2 (5-19) 07/17/22 05:01 BUN 8 mg/dL (6-20) 07/17/22 05:01 Creatinine 0.4 mg/dL (0.5-0.9) L 07/17/22 05:01 GFR Calculation 170.4 mL/min (90-130) H 07/17/22 05:01 Glucose 234 mg/dL (65-115) H 07/17/22 05:01 POC Glucose 215 mg/dL (70-110) H 07/17/22 06:43 Estimat Average Glucose 295 07/16/22 11:50 Hemoglobin A1c 11.9 % (4.0-6.0) H 07/16/22 11:50 Calculated Osmolality 278 mOsm/kg (285-295) L 07/17/22 05:01 Lactic Acid 1.7 mmol/L (0.5-2.2) 07/16/22 17:43 Calcium 8.2 mg/dL (8.5-10.5) L 07/17/22 05:01 Phosphorus 3.0 mg/dL (2.5-4.5) 07/17/22 05:01 Magnesium 1.7 mg/dL (1.7-2.3) 07/17/22 05:01 Total Bilirubin 0.2 mg/dL (0.15-1.2) 07/17/22 05:01 AST 37 U/L (0-32) H 07/17/22 05:01 ALT 49 U/L (0-33) H 07/17/22 05:01 Alkaline Phosphatase 132 U/L (35-105) H 07/17/22 05:01 Total Protein 5.8 g/dL (6.6-8.7) L 07/17/22 05:01 Albumin 2.8 g/dL (3.5-5.2) L 07/17/22 05:01 Globulin 3.0 g/dL (1.3-4.6) 07/17/22 05:01 Procalcitonin 0.05 ng/mL (0-0.5) 07/16/22 17:43 TSH 5.37 uIU/mL (0.27-4.20) H 07/16/22 17:43 HCG, Qual Negative (Negative) 07/16/22 11:30 Urine Opiates Screen Negative ng/mL (Negative) 07/16/22 11:30 Ur Barbiturates Screen Negative ng/mL (Negative) 07/16/22 11:30 Ur Phencyclidine Scrn Negative ng/mL (Negative) 07/16/22 11:30 Ur Amphetamines Screen Negative ng/mL (Negative) 07/16/22 11:30 U Benzodiazepines Scrn Positive ng/mL (Negative) H 07/16/22 11:30 Urine Cocaine Screen Negative ng/mL (Negative) 07/16/22 11:30 U Marijuana (THC) Screen Positive ng/mL (Negative) H 07/16/22 11:30 Serum Ketones Negative (Negative) 07/16/22 11:50 Vitals Last Vital Signs Temp 97.6 F 07/17/22 04:00 Pulse 86 07/17/22 08:35 Resp 17 07/17/22 08:00 BP 114/76 07/17/22 08:00 Pulse Ox 97 07/17/22 08:00 O2 Del Method 07/17/22 04:00 Discharge Plan Discharge Patient Disposition: Home Condition: Stable Prescriptions: New insulin aspart U-100 [Novolog FlexPen U-100 Insulin] 100 unit/mL (3 mL) ins ulin pen See Rx Instructions .ROUTE .COMPLEX MDD 45 Qty: 15 0RF Rx Instructions: Inject, subcut, 3 times daily, after meals, based on sliding scale provided, Glucagon Emergency Kit (human) 1 mg recon soln 1 mg SUBCUT Q20M PRN (Reason: hypoglycemia) Qty: 1 0RF Rx Instructions: until target blood sugar attained cefdinir 300 mg capsule 300 mg PO BID 7 Days Qty: 14 0RF doxycycline hyclate 100 mg tablet 100 mg PO BID 7 Days Qty: 14 0RF insulin glargine [Lantus Solostar U-100 Insulin] 100 unit/mL (3 mL) insulin pen 10 unit SUBCUT QAM Qty: 15 3RF Continued mirtazapine 30 mg tablet 30 mg PO BEDTIME Qty: 30 5RF imipramine HCl 25 mg tablet 25 mg PO .qhs Qty: 30 5RF (DME) pen needle, diabetic [1st Tier Unifine Pentips] 32 gauge x / needle See Rx Instructions .Route Qty: 50 12RF Rx Instructions: As directed, use with victoza to administer, daily. paroxetine HCl [Paxil] 20 mg tablet 20 mg PO DAILY Qty: 30 5RF (DME) lancets [OneTouch Delica Plus Lancet] 30 gauge misc See Rx Instructions .ROUTE .COMPLEX Qty: 100 1RF Dose Instruction: USE DIRECTED TO TEST BLOOD SUGAR ONCE DAILY. Rx Instructions: USE DIRECTED TO TEST BLOOD SUGAR ONCE DAILY. gabapentin 300 mg capsule See Rx Instructions .ROUTE .COMPLEX Qty: 240 5RF Dose Instruction: TAKE THREE CAPSULES BY MOUTH EVERY MORNING, TAKE TWO CAPSULES BY MOUTH AT NOON, TAKE THREE CAPSULES EVERY EVENING FOR CHRONIC HIP/BACK PAIN Rx Instructions: TAKE 3 CAPS in am, TAKE 2 CAPS AT NOON, TAKE 3 CAPS in pm (DME) Diabetic Shoes with 3 inserts See Rx Instructions .Route .MEDSUPPLY Qty: 1 0RF Rx Instructions: As directed metformin 500 mg tablet 1,000 mg PO BID 30 Days Qty: 120 5RF Rx Instructions: 340 B medication omeprazole 20 mg tablet,delayed release (DR/EC) 20 mg PO BID PRN (Reason: nausea/heartburn) Qty: 60 5RF buprenorphine-naloxone 8-2 mg film 0.5 film sublingual TID Qty: 45 0RF buspirone 30 mg tablet 15 mg PO BID Qty: 60 5RF Victoza 3-[place] 0.6 mg/0.1 mL (18 mg/3 mL) pen injector 1.8 mg SUBCUT DAILY PRN (Reason: high blood sugar) Qty: 9 0RF levothyroxine 50 mcg tablet 50 mcg PO DAILY Qty: 30 5RF Discontinued glipizide 10 mg tablet extended release 24hr 10 mg PO BID Qty: 60 5RF Discharge Orders: Discharge Order (Routine); Ordered 07/17/22 Ordered By: Jose D Rhoades Referrals: Israel Otero MD [Primary Care Provider] - 1-3 days [facility], [Staff Physician] - 1-3 days Discharge Diet: Diabetic Discharge Activity: Resume usual activity Patient Instructions: Insulin Aspart Protamine/Insulin Aspart (By injection) (NovoLOG Mix..., Insulin Glargine (By injection), Hypoglycemia in a Person with Diabetes (GEN), Diabetic Foot Ulcers (GEN), Type 2 Diabetes in the Older Adult (ED), What to Do if Your Blood Sugar is Low (DC), Type 2 Diabetes Management for Adults (GEN), Opioid Safety Activity Restrictions/Additional Instructions: Please take Lantus 10 units every morning -Please monitor your blood sugars closely -Monitor your blood sugars 3 times daily as after meals -Please record your blood sugars, and a blood sugar log -For your NovoLog -Please inject blood sugar after meals based on sliding scale provided -Do not inject insulin if you do not eat as hypoglycemia kills -This is a NovoLog sliding scale -Insulin sliding ?fingerstick? Insulin ?141-180?2 units/sq 181-220?4 units/sq ?221-260?6 units/sq ?261-300?8 units/sq ?301-350 10 units/sq ?351-400 12 units/sq > 400? 14 units/sq -If your blood sugar is greater than 500 go to the emergency room -If your blood sugar is less than 60 or at anytime you feel lightheaded or dizzy or diaphoretic or have chest palpitations check your blood sugar, and eat a hard candy or drink orange juice and go immediately to the emergency room -Remember hypoglycemia kills, so if his blood sugar is less than 60 we have to increase it by taking in a sugary meal such as a hard candy or orange juice and go to the emergency room -If you have any questions please call us where here to help -For your antibiotics please take cefdinir, and doxycycline as prescribed -Follow-up with wound care -Keep diabetic ulcers clean and dry -Follow-up with Dr. Otero in 1 to 3 days -Follow-up with wound care 1 to 3 days Discharge Attestations Time Spent in Discharge Care*: greater than 30 min Status at Discharge: Cognitive status at discharge: cognitively intact , Behavioral status at discharge: cooperative , Quality Metrics Clinical Quality Measures [ No reported AMI, CVA or VTE this stay] Coding Level of Care Code 56247 Total time (in minutes) for Discharge: 40 Diagnoses Cellulitis L03.90 Diabetic ulcer of bronson associated with diabetes mellitus due to underlying condition E08.622; L97.809 Hemoglobin A1c greater than 9.0% R73.09 Lower extremity edema R60.0 Major depressive disorder, recurrent, moderate F33.1 Generalized anxiety disorder F41.1 COPD (chronic obstructive pulmonary disease) with emphysema J43.9 Gastroparesis due to DM E11.43; K31.84 Diabetes type 2, uncontrolled E11.65 Hypothyroidism E03.9 Hypothyroidism type: unspecified Dyslipidemia E78.5 Elevated blood sugar R73.9 Pseudohyponatremia R79.89 Goals of care, counseling/discussion Z71.89
--- NOTE | 2022-07-17 10:58 | PC.OT ---
Occupational therapy evaluation was not completed prior to discharge.
== END 2022-07-17 10:39 | disposition home or self-care (01) ==
LOC: ER 14:10 → MEDSURG 17:52
PROVIDERS: Admitting Provider Family Medicine; Emergency Provider Emergency Medicine; PCP Family Medicine Adult Medicine; Visit Provider Family Medicine
DX: L03.90 Cellulitis, unspecified (principal); E11.621 Type 2 diabetes mellitus with foot ulcer; L97.809 Non-pressure chronic ulcer of other part of unspecified lower leg with unspecified severity; R60.0 Localized edema; F33.1 Major depressive disorder, recurrent, moderate; F41.1 Generalized anxiety disorder; J43.9 Emphysema, unspecified; E11.43 Type 2 diabetes mellitus with diabetic autonomic (poly)neuropathy; K31.84 Gastroparesis; E11.65 Type 2 diabetes mellitus with hyperglycemia; E03.9 Hypothyroidism, unspecified; E78.5 Hyperlipidemia, unspecified; R79.89 Other specified abnormal findings of blood chemistry; Z71.89 Other specified counseling; K21.9 Gastro-esophageal reflux disease without esophagitis; Z79.4 Long term (current) use of insulin; Z79.84 Long term (current) use of oral hypoglycemic drugs; Z86.19 Personal history of other infectious and parasitic diseases; G47.33 Obstructive sleep apnea (adult) (pediatric); F17.210 Nicotine dependence, cigarettes, uncomplicated
CPT/HCPCS: 36415; 36416; 73590; 80053; 80306; 81025; 82009; 82962; 83036; 83605; 83735; 84100; 84145; 84443; 85025; 85651; 87040; 93925; 93970; 94664; 96365; 96366; 96367; 96372; 96375; 96376; 99285; C9113; G0378; J0573; J0692; J0696; J1650; J1815; J2270; J3370; J7030

== ENCOUNTER → 2023-01-25 15:15 | Outpatient (BNVA) | payer MEDICAID, SELFPAY | PROVIDERS: PCP Family Medicine Adult Medicine; Referring Provider Family Medicine Adult Medicine; Visit Provider Internal Medicine | DX: Z86.19 Personal history of other infectious and parasitic diseases (principal); E11.65 Type 2 diabetes mellitus with hyperglycemia; E11.311 Type 2 diabetes mellitus with unspecified diabetic retinopathy with macular edema; E03.9 Hypothyroidism, unspecified; E78.5 Hyperlipidemia, unspecified; E11.43 Type 2 diabetes mellitus with diabetic autonomic (poly)neuropathy; K31.84 Gastroparesis; E11.40 Type 2 diabetes mellitus with diabetic neuropathy, unspecified | CPT/HCPCS: 36415; 80053; 80061; 80074; 82044; 83036; 84439; 84443; 87522; 87902 ==

== ENCOUNTER 2023-01-30 13:46 | Inpatient (IN) | payer MEDICAID, SELFPAY ==
[2023-01-30] VITALS (11 sets, daily range): BP systolic 141–175; BP diastolic 82–112; PULSE 78–90; RESP 15–26; TEMP 36.7–36.9; O2SAT 96–99; BMI 25.6
--- NOTE | 2023-01-30 13:48 | ECG_ITS ---
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 Measurements Intervals [place] Rate: 88 P: 64 MA: 153 QRS: 9 QRSD: 66 T: 30 QT: 334 QTc: 405 Interpretive Statements SINUS RHYTHM SEPTAL MYOCARDIAL INFARCTION , PROBABLY OLD [40+ ms Q WAVE IN V1/V2] Compared to ECG 05/01/2022 16:02:09 No significant changes Electronically Signed On 01-30-2023 16:03:44 CDT by Chris Allen M.D. [email or web address]
--- NOTE | 2023-01-30 16:58 | ED_ITS ---
HPI - Pediatric GI General: Chief Complaint: Abdominal Pain Stated Complaint: chest pain Time Seen by Provider: 01/30/23 16:34 History of Present Illness: This 47-year-old female with a history of reflux acidity presents with epigastric and right upper quadrant pain that started about 2 weeks ago. Pain is sharp in nature and radiates through to the back. There is no associated fever. Patient notes that the pain has been more or less constant since onset with periods of acute exacerbation. There is no clear exacerbating or relieving factors. Because of the pain, patient has been eating little. There is associated nausea and vomiting. Patient denies excessive alcohol intake. [facility] ED PFSH: Medical History COPD (chronic obstructive pulmonary disease) with emphysema Diabetes type 2, uncontrolled Diabetic macular edema Diabetic neuropathy Diabetic retinopathy, nonproliferative, severe Dyslipidemia Encounter for monitoring Suboxone maintenance therapy [facility] 06/02/2022 GERD (gastroesophageal reflux disease) Hemochromatosis carrier History of rheumatoid arthritis Hx of hepatitis C treatment with Dr. Morgan ~1999 Hypothyroidism Insomnia Lumbar disc disease with radiculopathy JOSE (obstructive sleep apnea) per sleep study 2010, CPAP of 13 recommended at that time, no longer with machine Osteoarthritis involving multiple joints on both sides of body Polysubstance (including opioids) dependence w/o physiol dependence smoker, severe cannabis, Opioid, Methamphetamines Pressure sore on sacrum Psychiatric care PTSD (post-traumatic stress disorder) Scoliosis associated with other condition Smoker Supraventricular tachycardia (~04/2020) identified during ED visit 04/2020, treated with 6mg adenosine with conversion to sinus Unintentional weight loss of more than 10% body weight within 6 months Surgical History History of hysterectomy (~2011) also Kimberly urethral plication History of incision and drainage (~2013) right upper extremity and R lower extremity History of tubal ligation History of umbilical hernia repair (~2011) Hx of cataract surgery bilateral eye Family History Father Diabetes Mother Diabetes Grandfather Pacemaker Denies family history of Stroke Social History Smoking and tobacco status: current every day smoker cigarettes Packs smoked per day: 0.5 Years cigarettes smoked: 33 Quit status (tobacco): has tried quititng Number of times tried to quit tobacco: 5 Second hand smoke exposure: Yes Smoking risk assessment/counseling performed?: No Alcohol intake: former Desire information about alcohol rehabilitation?: No Counseling given: No Substance/Drug Use: former Date of last use: IV drug use - 2019 Desire information about substance/drug rehabilitation?: No Counseling given: No Caregiver/support person: No Lives independently: Yes Household members: spouse Housing: House Marital status: Life Partner Number of children: 2 Number of grandchildren: 0 Highest education level completed: High School Graduate service: No Current occupational status: unemployed Pets and animals: Yes Pets & animals: dog(s) Do you think of yourself as: Straight/Heterosexual Current gender identity: Female Sirena/Rastafarian: Anabaptism Course Vital Signs: Vital signs: Vital Signs Temperature 98.1 F 01/30/23 13:55 Pulse Rate 90 01/30/23 13:55 Respiratory Rate 26 H 01/30/23 13:55 Blood Pressure 153/96 01/30/23 13:55 Pulse Oximetry 98 01/30/23 13:55 Discharge Plan Discharge Condition: Stable Prescriptions: No Action cyclobenzaprine 10 mg tablet 10 mg PO BID Qty: 60 3RF (DME) Diabetic Shoes with 3 pairs of Inserts See Rx Instructions .Route .MEDSUPPLY Qty: 1 0RF Rx Instructions: As directed by [facility] (DME) pen needle, diabetic [1st Tier Unifine Pentips] 32 gauge x 5/32 needle See Rx Instructions .Route Qty: 50 12RF Rx Instructions: As directed, use with victoza to administer, daily. (DME) lancets [OneTouch Delica Plus Lancet] 30 gauge misc See Rx Instructions .ROUTE .COMPLEX Qty: 100 1RF Dose Instruction: USE DIRECTED TO TEST BLOOD SUGAR ONCE DAILY. Rx Instructions: USE DIRECTED TO TEST BLOOD SUGAR ONCE DAILY. (DME) Diabetic Shoes with 3 inserts See Rx Instructions .Route .MEDSUPPLY Qty: 1 0RF Rx Instructions: As directed pantoprazole 40 mg tablet,delayed release (DR/EC) 40 mg PO BID Qty: 60 1RF Rx Instructions: take twice a day for a month then daily ondansetron 4 mg tablet,disintegrating 4 mg PO Q6H PRN (Reason: nausea and vomiting) Qty: 30 1RF buprenorphine-naloxone 8-2 mg film 0.5 film sublingual TID Qty: 45 0RF levothyroxine 50 mcg tablet 50 mcg PO DAILY Qty: 30 5RF (DME) blood-glucose meter [Accu-Chek Guide Glucose Meter] Misc See Rx Instructions .Route Qty: 1 0RF Rx Instructions: Check BS TID daily (DME) Accu-Chek Guide test strips Strip See Rx Instructions .Route Qty: 100 0RF Rx Instructions: Check BS TID daily gabapentin 300 mg capsule See Rx Instructions .ROUTE .COMPLEX Qty: 240 5RF Dose Instruction: TAKE THREE CAPSULES BY MOUTH EVERY MORNING, TAKE TWO CAPSULES BY MOUTH AT NOON, TAKE THREE CAPSULES EVERY EVENING FOR CHRONIC HIP/BACK PAIN Rx Instructions: TAKE 3 CAPS in am, TAKE 2 CAPS AT NOON, TAKE 3 CAPS in pm (DME) Dexcom G7 Sensor Device See Rx Instructions .Route Qty: 6 0RF Rx Instructions: As directed (DME) Dexcom G7 Bench Worker Helper Misc See Rx Instructions .Route Qty: 1 0RF Rx Instructions: As directed doxepin 10 mg capsule 10 mg PO .qhs PRN (Reason: sleep) Qty: 30 0RF Lantus Solostar U-100 Insulin 100 unit/mL (3 mL) insulin pen 10 unit SUBCUT QAM Qty: 15 3RF Novolog FlexPen U-100 Insulin 100 unit/mL (3 mL) insulin pen See Rx Instructions .ROUTE .COMPLEX MDD 45 Qty: 15 0RF Rx Instructions: Inject, subcut, 3 times daily, after meals, based on sliding scale provided, Glucagon Emergency Kit (human) 1 mg recon soln 1 mg SUBCUT Q20M PRN (Reason: hypoglycemia) Qty: 1 0RF Rx Instructions: until target blood sugar attained Referrals: Israel Otero MD [Primary Care Provider] - Coding Level of Care Code ED Cardiovascular Technician for Chg [facility]
--- NOTE | 2023-01-30 17:05 | W.ED.ABDPA2 ---
HPI - Abdominal Pain General: Chief Complaint: Abdominal Pain Stated Complaint: chest pain Time Seen by Provider: 01/30/23 16:34 Source: patient Mode of arrival: ambulatory History of Present Illness: This 47-year-old female with a history of reflux acidity presents with epigastric and right upper quadrant pain that started about 2 weeks ago. Pain is sharp in nature and radiates through to the back. There is no associated fever. Patient notes that the pain has been more or less constant since onset with periods of acute exacerbation. There is no clear exacerbating or relieving factors. Because of the pain, patient has been eating little. There is associated nausea and vomiting. Patient denies excessive alcohol intake. Associated Symptoms: Reports nausea and vomiting; Denies chills and dysuria Review of Systems Const: Denies: chills, body aches or change in appetite Eyes: Denies: change in vision or eye discharge ENMT: Denies: throat pain, dental pain or nasal discharge Card: Denies: chest pain or lightheadedness GI: Reports: abdominal pain (Epigastric pain), nausea and vomiting : Denies: dysuria Musc: Denies: neck pain or back pain Neuro: Denies: headache(s) or weakness in extremities Psych: Denies: depression Valentino/Lymph: Denies: easy bruising All/Imm: Denies: urticaria, tongue swelling or facial swelling PFS ED PFSH: Medical History COPD (chronic obstructive pulmonary disease) with emphysema Diabetes type 2, uncontrolled Diabetic macular edema Diabetic neuropathy Diabetic retinopathy, nonproliferative, severe Dyslipidemia Encounter for monitoring Suboxone maintenance therapy [facility] 06/02/2022 GERD (gastroesophageal reflux disease) Hemochromatosis carrier History of rheumatoid arthritis Hx of hepatitis C treatment with Dr. Morgan ~1999 Hypothyroidism Insomnia Lumbar disc disease with radiculopathy JOSE (obstructive sleep apnea) per sleep study 2010, CPAP of 13 recommended at that time, no longer with machine Osteoarthritis involving multiple joints on both sides of body Polysubstance (including opioids) dependence w/o physiol dependence smoker, severe cannabis, Opioid, Methamphetamines Pressure sore on sacrum Psychiatric care PTSD (post-traumatic stress disorder) Scoliosis associated with other condition Smoker Supraventricular tachycardia (~04/2020) identified during ED visit 04/2020, treated with 6mg adenosine with conversion to sinus Unintentional weight loss of more than 10% body weight within 6 months Surgical History History of hysterectomy (~2011) also Kimberly urethral plication History of incision and drainage (~2013) right upper extremity and R lower extremity History of tubal ligation History of umbilical hernia repair (~2011) Hx of cataract surgery bilateral eye Family History Father Diabetes Mother Diabetes Grandfather Pacemaker Denies family history of Stroke Social History Smoking and tobacco status: current every day smoker cigarettes Packs smoked per day: 0.5 Years cigarettes smoked: 33 Quit status (tobacco): has tried quititng Number of times tried to quit tobacco: 5 Second hand smoke exposure: Yes Smoking risk assessment/counseling performed?: No Alcohol intake: former Desire information about alcohol rehabilitation?: No Counseling given: No Substance/Drug Use: former Date of last use: IV drug use - 2019 Desire information about substance/drug rehabilitation?: No Counseling given: No Caregiver/support person: No Lives independently: Yes Household members: spouse Housing: House Marital status: Life Partner Number of children: 2 Number of grandchildren: 0 Highest education level completed: High School Graduate service: No Current occupational status: unemployed Pets and animals: Yes Pets & animals: dog(s) Do you think of yourself as: Straight/Heterosexual Current gender identity: Female Sirena/Methodist: Shinto Physical Exam Narrative: EXAM NARRATIVE: Mild distress due to epigastric/right upper quadrant pain. Const: COMMON NORMALS: patient oriented x3, no limitations and alert HENMT: COMMON NORMALS: normocephalic HEAD & SCALP: normocephalic Eye: COMMON NORMALS: EOMs intact bilaterally Neck/C-Spine: COMMON NORMALS: full ROM and supple Chest: COMMONS NORMALS: normal inspection of the chest Resp: COMMON NORMALS: normal respiratory effort, No retractions, No use of accessory muscles and clear to auscultation bilaterally AUSCULTATION: clear to auscultation bilaterally Cardio: COMMON NORMALS: regular rate, regular rhythm and No murmurs present (Cardio) RATE: regular rate RHYTHM: regular rhythm GI: COMMON NORMALS: Normal to inspection, nondistended, normoactive bowel sounds present PALPATION: Yes Tenderness to palpation present (GI) (Epigastric and right upper quadrant) Details: RUQ : COMMON NORMALS: Yes no CVA tenderness BLADDER/KIDNEY EXAM: Yes no CVA tenderness Back/Pelvis: COMMON NORMALS: no CVA tenderness and no thoracic nor lumbar tenderness Extremity: GENERAL: Yes normal exam except as noted Neuro: COMMON NORMALS: patient oriented x3 and no focal motor deficits SENSORIUM/ORIENTATION: Yes alert Psych: COMMON NORMALS: mental status grossly normal and cooperative Course Vital Signs: Vital signs: Vital Signs Temperature 98.1 F 01/30/23 13:55 Pulse Rate 78 01/30/23 18:00 Respiratory Rate 15 01/30/23 18:00 Blood Pressure 146/82 01/30/23 18:00 Pulse Oximetry 97 01/30/23 18:00 MDM - Abdominal Pain Medical Decision Making Medical decision making: Patient presents with epigastric pain/right upper quadrant pain that radiates straight into her back. On exam, she is tender in the epigastric region. Lipase level is elevated and CT abdomen/pelvis is suggestive of pancreatitis. She will be admitted for further management. Case discussed with Dr. Cruz, hospitalist on-call. She accepted patient for admission. Lab Data 01/30/23 16:54 01/30/23 18:31 Labs/Radiology: Radiology Impressions Abdomen/Pelvis CT 01/30/23 17:07 IMPRESSION: 1. 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 Correlate with serum amylase and lipase levels. No organized collection. No necrosis or hemorrhage. 2. Mild circumferential urinary bladder wall thickening, possibly secondary to underdistention. Correlate with urinalysis to exclude cystitis. 3. Additional findings, as above. Laboratory Results WBC 10.14 10^3/uL (3.29-11.43) 01/30/23 16:54 RBC 4.84 10^6/uL (3.85-5.65) 01/30/23 16:54 Hgb 14.10 g/dL (11.27-16.99) 01/30/23 16:54 Hct 41.2 % (36-47) 01/30/23 16:54 MCV 85.1 fl (85-98) 01/30/23 16:54 MCH 29.1 pg (27-33) 01/30/23 16:54 MCHC 34.2 g/dL (30-55) 01/30/23 16:54 RDW 12.5 % (12.1-15.1) 01/30/23 16:54 Plt Count 298 10^3/cmm (157-399) 01/30/23 16:54 MPV 9.4 fL (7.4-10.4) 01/30/23 16:54 Neut % (Auto) 63.2 % 01/30/23 16:54 Lymph % (Auto) 26.8 % 01/30/23 16:54 [place] % (Auto) 6.8 % 01/30/23 16:54 Eos % (Auto) 2.0 % 01/30/23 16:54 Baso % (Auto) 0.9 % 01/30/23 16:54 Neut # (Auto) 6.41 10^3/uL (1.8-7.7) 01/30/23 16:54 Lymph # (Auto) 2.7 10^3/uL (0.8-4.8) 01/30/23 16:54 [place] # (Auto) 0.7 10^3/uL (0.2-0.9) 01/30/23 16:54 Eos # (Auto) 0.2 10^3/uL (0.0-0.8) 01/30/23 16:54 Baso # (Auto) 0.1 10^3/uL (0.0-0.1) 01/30/23 16:54 Nucleated RBC % (auto) 0 % 01/30/23 16:54 Nucleated RBCs # 0.0 /100WBC 01/30/23 16:54 Sodium 131 mmol/L (136-145) L 01/30/23 18:31 Potassium 4.0 mmol/L (3.5-5.1) 01/30/23 18:31 Chloride 95 mmol/L (98-107) L 01/30/23 18:31 Carbon Dioxide 27 mmol/L (22-29) 01/30/23 18:31 Anion Gap 13.0 (5-19) 01/30/23 18:31 BUN 10 mg/dL (6-20) 01/30/23 18:31 Creatinine 0.5 mg/dL (0.5-0.9) 01/30/23 18:31 GFR Calculation 131.1 mL/min (90-130) H 01/30/23 18:31 Glucose 222 mg/dL (65-115) H 01/30/23 18:31 Calculated Osmolality 278 mOsm/kg (285-295) L 01/30/23 18:31 Calcium 9.0 mg/dL (8.5-10.5) 01/30/23 18:31 Total Bilirubin 0.3 mg/dL (0.15-1.2) 01/30/23 18:31 AST 36 U/L (0-32) H 01/30/23 18:31 ALT 58 U/L (0-33) H 01/30/23 18:31 Alkaline Phosphatase 119 U/L (35-105) H 01/30/23 18:31 Total Protein 7.3 g/dL (6.6-8.7) 01/30/23 18:31 Albumin 4.1 g/dL (3.5-5.2) 01/30/23 18:31 Globulin 3.2 g/dL (1.3-4.6) 01/30/23 18:31 Lipase 92 U/L (13-60) H 01/30/23 17:19 Urine Color Yellow (Yellow) 01/30/23 17:48 Urine Appearance Cloudy (CLEAR) A 01/30/23 17:48 Urine pH 5 (5-7) 01/30/23 17:48 Ur Specific Bieber 1.020 (1.005-1.030) 01/30/23 17:48 Urine Protein 1+ (Negative) H 01/30/23 17:48 Urine Glucose (UA) 4+ (Normal) H 01/30/23 17:48 Urine Ketones 2+ (Negative) H 01/30/23 17:48 Urine Blood 2+ (Negative) H 01/30/23 17:48 Urine Nitrate Negative (Negative) 01/30/23 17:48 Urine Bilirubin Neg (Negative) 01/30/23 17:48 Urine Urobilinogen 4 mg/dL (Negative) H 01/30/23 17:48 Ur Leukocyte Esterase 2+ (Negative) H 01/30/23 17:48 Urine RBC 5-10 /hpf (0-2) H 01/30/23 17:48 Urine WBC >100 /hpf (0-5) H 01/30/23 17:48 Ur Squamous Epith Cells 5-10 /hpf (0-5) H 01/30/23 17:48 Amorphous Sediment Not Reportable 01/30/23 17:48 Urine Bacteria 1+ /hpf (NONE) H 01/30/23 17:48 Urine Yeast 1+ /hpf H 01/30/23 17:48 Discharge Plan Discharge Patient Disposition: Admitted As Inpatient Clinical Impression: Acute pancreatitis Condition: Stable Prescriptions: No Action cyclobenzaprine 10 mg tablet 10 mg PO BID Qty: 60 3RF (DME) Diabetic Shoes with 3 pairs of Inserts See Rx Instructions .Route .MEDSUPPLY Qty: 1 0RF Rx Instructions: As [place] by [facility] [place] [place], diabetic [1st Tier Unifine Pentips] 32 gauge x 5/32 needle See Rx Instructions .Route Qty: 50 12RF Rx Instructions: As directed, use with victoza to administer, daily. [place] [place] lancets [OneTouch Delica Plus Lancet] 30 gauge misc See Rx Instructions .ROUTE .COMPLEX Qty: 100 1RF Dose Instruction: USE DIRECTED TO TEST BLOOD SUGAR ONCE DAILY. Rx Instructions: USE DIRECTED TO TEST BLOOD SUGAR ONCE DAILY. (DME) Diabetic Shoes with 3 inserts See Rx Instructions .Route .MEDSUPPLY Qty: 1 0RF Rx Instructions: As directed pantoprazole 40 mg tablet,delayed release (DR/EC) 40 mg PO BID Qty: 60 1RF Rx Instructions: take twice a day for a month then daily ondansetron 4 mg tablet,disintegrating 4 mg PO Q6H PRN (Reason: nausea and vomiting) Qty: 30 1RF buprenorphine-naloxone 8-2 mg film 0.5 film sublingual TID Qty: 45 0RF levothyroxine 50 mcg tablet 50 mcg PO DAILY Qty: 30 5RF (DME) blood-glucose meter [Accu-Chek Guide Glucose Meter] Misc See Rx Instructions .Route Qty: 1 0RF Rx Instructions: Check BS TID daily (DME) Accu-Chek Guide test strips Strip See Rx Instructions .Route Qty: 100 0RF Rx Instructions: Check BS TID daily gabapentin 300 mg capsule See Rx Instructions .ROUTE .COMPLEX Qty: 240 5RF Dose Instruction: TAKE THREE CAPSULES BY MOUTH EVERY MORNING, TAKE TWO CAPSULES BY MOUTH AT NOON, TAKE THREE CAPSULES EVERY EVENING FOR CHRONIC HIP/BACK PAIN Rx Instructions: TAKE 3 CAPS in am, TAKE 2 CAPS AT NOON, TAKE 3 CAPS in pm (DME) Dexcom G7 Sensor Device See Rx Instructions .Route Qty: 6 0RF Rx Instructions: As directed (DME) Dexcom G7 Production Machine Computer Operator Misc See Rx Instructions .Route Qty: 1 0RF Rx Instructions: As directed doxepin 10 mg capsule 10 mg PO .qhs PRN (Reason: sleep) Qty: 30 0RF Lantus Solostar U-100 Insulin 100 unit/mL (3 mL) insulin pen 10 unit SUBCUT QAM Qty: 15 3RF Novolog FlexPen U-100 Insulin 100 unit/mL (3 mL) insulin pen See Rx Instructions .ROUTE .COMPLEX MDD 45 Qty: 15 0RF Rx Instructions: Inject, subcut, 3 times daily, after meals, based on sliding scale provided, Glucagon Emergency Kit (human) 1 mg recon soln 1 mg SUBCUT Q20M PRN (Reason: hypoglycemia) Qty: 1 0RF Rx Instructions: until target blood sugar attained Referrals: Israel Otero MD [Primary Care Provider] - Coding Level of Care Code ED Wax Cutter for Esperanza Hernandez
--- NOTE | 2023-01-30 17:07 | CTR_ITS ---
PROCEDURE INFORMATION: Exam: CT Abdomen And Pelvis With Contrast Exam date and time: 01/30/2023 5:53 PM Age: 47 years old Clinical indication: Abdominal pain; Epigastric; Prior surgery; Surgery date: 6+ months; Surgery type: Hyst tubal hernia repair; Additional info: Right upper quadrant/epigastric pain TECHNIQUE: Imaging protocol: Computed tomography of the abdomen and pelvis with contrast. Axial, coronal and sagittal reformatted images were created and reviewed. Radiation optimization: All CT scans at this facility use at least one of these dose optimization techniques: automated exposure control; mA and/or kV adjustment per patient size (includes targeted exams where dose is matched to clinical indication); or iterative reconstruction. Contrast material: OMNI 350; Contrast volume: 100 ml; Contrast route: INTRAVENOUS (IV); REPORTING DATA: Count of CT and Cardiac NM exams in prior 12 months: This patient has received [address] and 0 known cardiac nuclear medicine studies in the 12 months prior to the current study. COMPARISON: CT abdomen pelvis w con* [id number] 03/31/2022 4:53 PM RADIATION DOSE METRICS: Total DLP (mGy-cm): 481 FINDINGS: Lungs: Linear/discoid stranding and groundglass at the lung bases, likely due to atelectasis and/or scarring. Liver: Mild, diffuse hepatic steatosis. 1 cm cyst in the right hepatic lobe. Mild hepatomegaly. Gallbladder and bile ducts: No radiodense gallstones. No biliary ductal dilatation. Pancreas: Small amount of edema and fluid interposed between the duodenum and pancreatic head. No necrosis or hemorrhage. Spleen: Coarse calcified splenic granulomata. Adrenal glands: Normal. No mass. Kidneys and ureters: No mass. No radiodense calculi. No hydronephrosis. Stomach and bowel: Large amount of retained stool in the colon. No obstruction. No bowel wall thickening. No pneumatosis. Appendix: Normal. Intraperitoneal space: No free fluid. No organized fluid collection. No free air. Vasculature: Mild atherosclerotic disease. No aneurysm or dissection. Lymph nodes: No pathologically enlarged lymph nodes. Urinary bladder: Mild circumferential urinary bladder wall thickening, possibly secondary to underdistention. Reproductive: Status post hysterectomy. Bones/joints: No acute osseous abnormality. Osteopenia. Degenerative changes. Soft tissues: Grossly unremarkable. CT/CT abdomen pelvis w con* [id number] IMPRESSION: 1. 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 Correlate with serum amylase and lipase levels. No organized collection. No necrosis or hemorrhage. 2. Mild circumferential urinary bladder wall thickening, possibly secondary to underdistention. Correlate with urinalysis to exclude cystitis. 3. Additional findings, as above.
[2023-01-30 17:22] LABS: Basophils # 0.1 10^3/uL (0.0-0.1); Basophils % 0.9 %; Eosinophils # 0.2 10^3/uL (0.0-0.8); Hematocrit 41.2 % (36-47); Lymphocytes # 2.7 10^3/uL (0.8-4.8); Lymphocytes % 26.8 %; Mean Corpuscular HGB Conc 34.2 g/dL (30-55); Mean Corpuscular Hemoglobin 29.1 pg (27-33); Mean Corpuscular Volume 85.1 fl (85-98); Mean Platelet Volume 9.4 fL (7.4-10.4); Monocytes # 0.7 10^3/uL (0.2-0.9); Monocytes % 6.8 %; Neutrophils # 6.41 10^3/uL (1.8-7.7); Neutrophils % 63.2 %; Nucleated Red Blood Cells % 0 %; Platelet Count 298 10^3/cmm (157-399); Red Blood Count 4.84 10^6/uL (3.85-5.65); Red Cell Distribution Width 12.5 % (12.1-15.1); White Blood Count 10.14 10^3/uL (3.29-11.43)
[2023-01-30] MEDS: lidocaine 2% viscous 15 ML, aluminum-mag hydrox-simethicon 30 ML, sucralfate oral liq 1 GM PO (17:25)
[2023-01-30] MEDS: metoclopramide 5 mg/mL SDV 2 mL 10 MG IVP (17:25)
[2023-01-30] MEDS: pantoprazole 40 mg SDV IVP (17:25)
[2023-01-30] MEDS: sodium chloride 0.9% 1,000 ML 999 ML IV (17:26)
[2023-01-30] MEDS: morphine 4 mg/mL SDV 1 mL IVP ×2 (17:26→20:57)
[2023-01-30] MEDS: iohexol 350 mg/mL 500 mL Btl (per mL) IV (17:58)
[2023-01-30 18:21] LABS: Protein Urine 1+ (Negative); Urine Appearance Cloudy (CLEAR); Urine Color Yellow (Yellow); pH Urine 5 (5-7)
[2023-01-30 18:22] LABS: Add Urine Microscopic? YES; Bilirubin Urine Neg (Negative); Blood Urine 2+ (Negative); Glucose Urine UA 4+ (Normal); Ketones Urine 2+ (Negative); Leukocyte Esterase Urine 2+ (Negative); Nitrate Urine Negative (Negative); Urobilinogen Urine 4 mg/dL (Negative)
[2023-01-30 18:23] LABS: Add Urine Culture? Yes; Bacteria Urine 1+ /hpf; WBC Urine >100 /hpf (0-5)
[2023-01-30 19:18] LABS: Alanine Aminotransferase 58 U/L (0-33); Albumin Level 4.1 g/dL (3.5-5.2); Alkaline Phosphatase 119 U/L (35-105); Aspartate Amino Transferase 36 U/L (0-32); Blood Urea Nitrogen 10 mg/dL (6-20); Carbon Dioxide 27 mmol/L (22-29); Chloride 95 mmol/L (98-107); Globulin 3.2 g/dL (1.3-4.6); Glomerular Filtration Rate 131.1 mL/min (90-130); Glucose 222 mg/dL (65-115); Osmolality Calculated 278 mOsm/kg (285-295); Sodium 131 mmol/L (136-145); Total Bilirubin 0.3 mg/dL (0.15-1.2); Total Protein 7.3 g/dL (6.6-8.7)
[2023-01-30 20:30] LABS: Lipase 92 U/L (13-60)
--- NOTE | 2023-01-30 21:56 | PM.HP ---
Providers/Chief Complaint Admitting Physician: Asya Cruz MD Primary Care Provider: Israel Otero MD Chief Complaint: chest pain History of Present Illness Mena Cano is a 47 year old female with history of diabetes COPD GERD PTSD major depression generalized anxiety disorder active smoker half pack per day for 35 years hypothyroidism presented with complaint of epigastric and right upper quadrant pain since 4 days. She reports the pain started 2 weeks ago and has been gradually worsening and is associated with nausea vomiting x1 and decreased appetite. The pain starts in the epigastric area and radiates to the back, aggravated with food no relieving factors present. she did not have similar complaints in the past. She is nonalcoholic but ex IV drug user, quit 4 years ago. No family history of hypercholesterolemia. She denies any fever cough cold shortness of breath chest pain diarrhea. But reports having suprapubic heaviness after urination. Review of Systems Narrative: As per HPI Medications/Allergies Home Medications Medication Instructions Recorded Confirmed Last Taken Type buprenorphine 8 mg-naloxone 2 mg 0.5 film sublingual TID #45 ea 04/04/22 01/25/23 07/16/22 Rx sublingual film Diabetic Shoes with 3 inserts #1 ea 05/05/22 01/25/23 Unknown Rx lancets 30 gauge (OneTouch Delica #100 ea 05/05/22 01/25/23 Unknown Rx Plus Lancet) pen needle, diabetic 32 gauge x #50 ea 05/05/22 01/25/23 Unknown Rx 5/32 (1st Tier Unifine Pentips) levothyroxine 50 mcg tablet 50 mcg PO DAILY low thyroid #30 06/07/22 01/25/23 07/16/22 Rx tabs glucagon 1 mg solution for 1 mg SUBCUT Q20M PRN hypoglycemia 07/17/22 01/25/23 Unknown Rx injection (Glucagon Emergency Kit) #1 ea insulin aspart U-100 100 unit/mL See Rx Instructions .Route 07/17/22 01/25/23 Unknown Rx (3 mL) subcutaneous pen (Novolog .COMPLEX #15 mL FlexPen U-100 Insulin aspart) insulin glargine 100 unit/mL (3 10 unit (0.1 mL) SUBCUT QAM #15 mL 07/17/22 01/25/23 Unknown Rx mL) subcutaneous pen (Lantus Solostar U-100 Insulin) ondansetron 4 mg disintegrating 4 mg PO Q6H PRN nausea and 11/02/22 01/25/23 Unknown Rx tablet vomiting #30 tabs pantoprazole 40 mg tablet,delayed 40 mg PO BID #60 tabs 11/02/22 01/25/23 Unknown Rx release blood sugar diagnostic (Accu-Chek #100 ea 11/08/22 01/25/23 Unknown Rx Guide test strips) blood-glucose meter (Accu-Chek #1 ea 11/08/22 01/25/23 Unknown Rx Guide Glucose Meter) gabapentin 300 mg capsule See Rx Instructions .Route 11/10/22 01/25/23 Unknown Rx .COMPLEX #240 caps Diabetic Shoes with 3 pairs of #1 ea 11/16/22 01/25/23 Unknown Rx Inserts cyclobenzaprine 10 mg tablet 10 mg PO BID muscle pain #60 tabs 12/06/22 01/25/23 Unknown Rx blood-glucose meter,continuous #1 ea 01/25/23 Unknown Rx (Dexcom G7 Golf Course Architect) blood-glucose sensor (Dexcom G7 #6 ea 01/25/23 Unknown Rx Sensor device) doxepin 10 mg capsule 10 mg PO .qhs PRN sleep #30 caps 01/30/23 Unknown Rx Allergies Allergy/AdvReac Type Severity Reaction Status Date / Time amoxicillin Allergy Unknown Verified 12/06/22 09:06 PFSH Acute PFSH: Medical History COPD (chronic obstructive pulmonary disease) with emphysema Diabetes type 2, uncontrolled Diabetic macular edema Diabetic neuropathy Diabetic retinopathy, nonproliferative, severe Dyslipidemia Encounter for monitoring Suboxone maintenance therapy [facility] 06/02/2022 GERD (gastroesophageal reflux disease) Hemochromatosis carrier History of rheumatoid arthritis Hx of hepatitis C treatment with Dr. Morgan ~1999 Hypothyroidism Insomnia Lumbar disc disease with radiculopathy JOSE (obstructive sleep apnea) per sleep study 2010, CPAP of 13 recommended at that time, no longer with machine Osteoarthritis involving multiple joints on both sides of body Polysubstance (including opioids) dependence w/o physiol dependence smoker, severe cannabis, Opioid, Methamphetamines Pressure sore on sacrum Psychiatric care PTSD (post-traumatic stress disorder) Scoliosis associated with other condition Smoker Supraventricular tachycardia (~04/2020) identified during ED visit 04/2020, treated with 6mg adenosine with conversion to sinus Unintentional weight loss of more than 10% body weight within 6 months Surgical History History of hysterectomy (~2011) also Kimberly urethral plication History of incision and drainage (~2013) right upper extremity and R lower extremity History of tubal ligation History of umbilical hernia repair (~2011) Hx of cataract surgery bilateral eye Family History Father Diabetes Mother Diabetes Grandfather Pacemaker Denies family history of Stroke Social History Smoking and tobacco status: current every day smoker cigarettes Packs smoked per day: 0.5 Years cigarettes smoked: 33 Quit status (tobacco): has tried quititng Number of times tried to quit tobacco: 5 Second hand smoke exposure: Yes Smoking risk assessment/counseling performed?: No Alcohol intake: former Desire information about alcohol rehabilitation?: No Counseling given: No Substance/Drug Use: former Date of last use: IV drug use 2019 Desire information about substance/drug rehabilitation?: No Counseling given: No Caregiver/support person: No Lives independently: Yes Household members: spouse Housing: House Marital status: Life Partner Number of children: 2 Number of grandchildren: 0 Highest education level completed: High School Graduate service: No Current occupational status: unemployed Pets and animals: Yes Pets & animals: dog(s) Do you think of yourself as: Straight/Heterosexual Current gender identity: Female Sirena/Mandaeism: Hinduism Vitals/I&O/Wt Last Vital Signs Temp 98.1 F 01/30/23 13:55 Pulse 79 01/30/23 21:48 Resp 16 01/30/23 21:48 BP 154/98 01/30/23 21:48 Pulse Ox 96 01/30/23 21:48 Weight last 48 hrs Weight 63.503 kg Physical Exam Narrative: She is alert awake oriented x3 not in acute distress Chest clear to auscultation bilaterally Cardiovascular normal heart sounds regular rhythm Abdomen soft nondistended mildly tender in epigastric and right upper quadrant Normal bowel sounds Extremities no pedal edema noted Data 01/30/23 16:54 01/30/23 18:31 CT Abd/Pel: Radiologist's impression: IMPRESSION: 1. ? 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 Correlate with serum amylase and lipase levels. No organized collection. No necrosis or hemorrhage. 2. ? Mild circumferential urinary bladder wall thickening, possibly secondary to underdistention. Correlate with urinalysis to exclude cystitis. 3. ? Additional findings, as above. ? EKG 1: My Interpretation: Normal sinus rhythm no acute ST-T changes A&P Assessment and plan (1) Acute pancreatitis: (2) Urinary tract infection: 47-year-old female with multiple medical problems presented with complaint of epigastric pain radiating to the back nausea vomiting and urinary discomfort, found to have lipase 92 CT abdomen pelvis consistent with acute pancreatitis and UA positive for more than 100 WBCs. Secondary to UTI Qualifiers: Hematuria presence: without hematuria Urinary tract infection type: acute cystitis Qualified Code(s): N30.00 - Acute cystitis without hematuria Plan Will start IV fluids normal saline at 100 mL/h IV morphine 2 mg every 4 hours as needed for pain She is n.p.o. except medications IV Zosyn 3.375 mg every 8 hours IV Zofran 4 mg every 8 hours as needed for nausea and vomiting Check serum triglyceride levels Resume home medications IV Pepcid 20 mg every 12 hours for stress ulcer prophylaxis Subcutaneous Lovenox 30 mg daily for DVT prophylaxis She is full code for now [facility] Medical Necessity Statement*: She needs continued hospitalization for more than 2 midnights for management of acute pancreatitis and UTI with IV fluids and antibiotics Time Spent in Patient Care: 30 minutes Coding Level of Care Code Acute Code for [facility] Diagnoses Acute pancreatitis K85.90 Urinary tract infection N30.00 Hematuria presence: without hematuria Urinary tract infection type: acute cystitis Time Spent (min) 30
[2023-01-30] MEDS: enoxaparin 30 mg/0.3 mL Syringe SUBCUT (23:07)
[2023-01-30] MEDS: piperacillin-tazobactam 3.375 GM in sodium chloride 0.9% (plus) 50 ML IV (23:07)
[2023-01-30] MEDS: famotidine 20 mg/2 mL INJ IVP (23:07)
[2023-01-30] MEDS: sodium chloride 0.9% 1,000 ML 100 ML IV (23:07)
--- NOTE | 2023-01-30 23:34 | PC.PHAR ---
home med insulin directions state tid sliding scale. use corrective SS insulin set low dose. BETITO WEIR
[2023-01-31] VITALS (11 sets, daily range): BP systolic 136–160; BP diastolic 80–92; PULSE 79–98; RESP 14–24; TEMP 36.5–37.2; O2SAT 97–99
[2023-01-31] MEDS: ondansetron 2 mg/ML SDV 2 mL 4 MG IVP ×4 (01:31→20:51)
[2023-01-31] MEDS: morphine 4 mg/mL SDV 1 mL 2 MG IVP ×5 (01:32→20:51)
[2023-01-31 05:07] LABS: Basophils # 0.1 10^3/uL (0.0-0.1); Basophils % 0.8 %; Eosinophils # 0.2 10^3/uL (0.0-0.8); Eosinophils % 1.9 %; Hematocrit 38.1 % (36-47); Lymphocytes # 2.4 10^3/uL (0.8-4.8); Lymphocytes % 30.6 %; Mean Corpuscular HGB Conc 34.1 g/dL (30-55); Mean Corpuscular Volume 84.9 fl (85-98); Mean Platelet Volume 9.1 fL (7.4-10.4); Monocytes # 0.7 10^3/uL (0.2-0.9); Monocytes % 8.6 %; Neutrophils # 4.58 10^3/uL (1.8-7.7); Neutrophils % 57.7 %; Nucleated Red Blood Cells % 0 %; Platelet Count 268 10^3/cmm (157-399); Red Blood Count 4.49 10^6/uL (3.85-5.65); Red Cell Distribution Width 12.4 % (12.1-15.1); White Blood Count 7.93 10^3/uL (3.29-11.43)
[2023-01-31 05:29] LABS: Triglycerides 146 mg/dL (0-150)
[2023-01-31 05:30] LABS: Alanine Aminotransferase 54 U/L (0-33); Albumin Level 3.7 g/dL (3.5-5.2); Alkaline Phosphatase 113 U/L (35-105); Aspartate Amino Transferase 35 U/L (0-32); Blood Urea Nitrogen 8 mg/dL (6-20); Calcium 8.6 mg/dL (8.5-10.5); Carbon Dioxide 26 mmol/L (22-29); Chloride 97 mmol/L (98-107); Globulin 2.4 g/dL (1.3-4.6); Glomerular Filtration Rate 131.1 mL/min (90-130); Glucose 222 mg/dL (65-115); Magnesium 1.6 mg/dL (1.7-2.3); Osmolality Calculated 275 mOsm/kg (285-295); Phosphorus 3.2 mg/dL (2.5-4.5); Sodium 130 mmol/L (136-145); Total Bilirubin 0.4 mg/dL (0.15-1.2); Total Protein 6.1 g/dL (6.6-8.7)
[2023-01-31 05:35] LABS: Anion Gap 11.2 (5-19); Potassium 4.2 mmol/L (3.5-5.1)
[2023-01-31] MEDS: piperacillin-tazobactam 3.375 GM in sodium chloride 0.9% (plus) 50 ML IV ×3 (06:32→23:57)
[2023-01-31 06:34] LABS: Glucose Point of Care 220 mg/dL (70-110)
[2023-01-31] MEDS: insulin glargine 100 units/1 mL 10 UNIT SUBCUT (06:59)
[2023-01-31] MEDS: levothyroxine 50 mcg Tablet PO (08:24)
[2023-01-31] MEDS: cyclobenzaprine 10 mg Tablet PO ×2 (08:24→16:54)
[2023-01-31] MEDS: insulin lispro 100 unit/1 mL SUBCUT ×4 (08:25→21:54)
[2023-01-31 09:12] LABS: Lipase 59 U/L (13-60)
[2023-01-31] MEDS: magnesium sulfate premix 2 GM/50 ML PIGGYBACK IV (09:18)
[2023-01-31] MEDS: pantoprazole 40 mg SDV IVP ×2 (09:19→20:16)
[2023-01-31] MEDS: sodium chloride 0.9% 1,000 ML 100 ML IV ×2 (09:19→20:47)
--- NOTE | 2023-01-31 10:38 | PC.PHAR ---
pt states she takes care of her own medications-pt states she is taking suboxone a quarter strip of film once a day then on Feb 15 2023 dose will change to an eight of a strip per pt-pt states takes cyclobenzaprine 10mg bid prn-pt states she takes gabapentin 900mg bid rx filled 900mg qam 600mg at noon and 900mg qpm-pt states the dr increased the lantus solostar last week states she is using 14 units qam rx filled 10/07/22 10 units daily- pt states she is using novolog flexpen u-100 sliding scale tid (pt states lost paper with ss has been using 10-12 units for bs 300 or less and bs greater than 350=14 units) max 45 units per day-pt states the dr dced her glipizide er 10mg bid and metformin 500mg 1000mg bid-pt states she dced her buspar 15mg bid a week ago pt states she stop taking because she doesnt think it works-notes are made in the pharmacy comments
[2023-01-31 11:03] LABS: Glucose Point of Care 178 mg/dL (70-110)
--- NOTE | 2023-01-31 13:36 | PM.PN ---
Subjective Subjective: She is still having periductal pain and has not vomited in the last few days. Has had recurrent episodes of severe periumbilical pain in the past. Denies diarrhea. More so constipation. Last BM yesterday. Does not drink alcohol. Vitals/I&O/Wt Last Vital Signs Temp 97.7 F 01/31/23 11:35 Pulse 79 01/31/23 11:35 Resp 16 01/31/23 11:35 BP 139/91 01/31/23 11:35 Pulse Ox 97 01/31/23 11:35 O2 Del Method Room Air 01/31/23 11:35 01/30/23 01/31/23 01/31/23 22:59 06:59 14:59 Intake Total 50 / 50 1471.667 / 1471.667 Output Total 800 / 800 Balance -750 / -750 1471.667 / 1471.667 Weight last 48 hrs Weight 63.503 kg Physical Exam Const: COMMON NORMALS: patient oriented x3 and alert GENERAL APPEARANCE: cooperative ORIENTATION/CONSCIOUSNESS: Yes awake HENMT: COMMON NORMALS: oropharynx normal Neck/C-Spine: COMMON NORMALS: no JVD Resp: COMMON NORMALS: normal respiratory effort and clear to auscultation bilaterally AUSCULTATION: clear to auscultation bilaterally Cardio: COMMON NORMALS: no JVD, regular rhythm, S1 normal heart sound present, S2 normal heart sound present and No murmurs present (Cardio) RHYTHM: regular rhythm HEART SOUNDS: S1 normal heart sound present and S2 normal heart sound present GI: COMMON NORMALS: Normal to inspection, nondistended, normoactive bowel sounds present and Soft to palpation PALPATION: Yes Soft to palpation and Yes Tenderness to palpation present (GI) Details: other (Central abdomen) Extremity: COMMON NORMALS: no joint enlargement and no pedal edema Neuro: COMMON NORMALS: patient oriented x3 and moves all extremities SENSORIUM/ORIENTATION: Yes alert Skin: COMMON NORMALS: no rashes or lesions noted GENERAL SKIN EXAM: no rashes or lesions noted Data 01/31/23 04:33 01/31/23 04:33 A&P Assessment and plan (1) Acute pancreatitis: (2) Urinary tract infection: Continue Zosyn. Follow-up urine culture. Qualifiers: Hematuria presence: without hematuria Urinary tract infection type: acute cystitis Qualified Code(s): N30.00 - Acute cystitis without hematuria Plan 47-year-old female with multiple medical problems presented with complaint of epigastric pain radiating to the back nausea vomiting and urinary discomfort, found to have lipase 92 CT abdomen pelvis consistent with acute pancreatitis and UA positive for more than 100 WBCs. Secondary to UTI Question of possible recurrent pancreatitis, possibly burned-out pancreatitis given lipase did not elevate above 90. However, discussed with her possibility this is not pancreatitis, possibly gastritis/duodenitis. Continue acid blockers, change to PPI. Added sucralfate. Does have ibuprofen listed at home, discontinue NSAIDs. Discussed with her would benefit from endoscopic evaluation at some point. Also consideration of ERCP in case of recurrent pancreatitis. Otherwise reviewed chemistry, repeat pH, noted 59. Noted some mild chronic transaminitis. Noted triglycerides not elevated. Calcium not able to does not drink alcohol. Reviewing prior studies I do see surgeon documentation she had an EGD back in November 2021 with reflux disease in the lower third of esophagus, moderate striped gastritis in the prepyloric area. No abnormalities in the duodenum. Unable to tolerate food or drink by mouth right now. At risk of dehydration. N.p.o. for now. She will let us know when she is feeling better to try some clears. For now continue IV hydration support. Still requiring IV morphine. Continue antiemetic. Discussed with case management. Attestations Medical Necessity Statement*: Continue admission for assessment and management of possible pancreatitis, suspected gastritis/duodenitis, currently unable to tolerate oral intake. Treat UTI. Diagnoses Acute pancreatitis K85.90 Urinary tract infection N30.00 Hematuria presence: without hematuria Urinary tract infection type: acute cystitis
[2023-01-31] MEDS: sucralfate 1 gm Tablet PO ×2 (14:50→20:45)
[2023-01-31 16:11] LABS: Glucose Point of Care 180 mg/dL (70-110)
[2023-01-31] MEDS: NON-FORMULARY MEDICATION (Buprenorphine-Naloxone 8-2 mg film) 0.25 EACH SUBLINGUAL (20:14)
[2023-01-31] MEDS: enoxaparin 40 mg/0.4 mL Syringe SUBCUT (20:16)
[2023-01-31 21:44] LABS: Glucose Point of Care 208 mg/dL (70-110)
[2023-02-01] VITALS (7 sets, daily range): BP systolic 142–161; BP diastolic 83–96; PULSE 79–109; RESP 13–22; TEMP 36.1–36.7; O2SAT 96–99
--- NOTE | 2023-02-01 02:28 | PC.NURSE ---
Assumed pt care at 0100, received report from LIZA Garnett.
[2023-02-01] MEDS: ondansetron 2 mg/ML SDV 2 mL 4 MG IVP ×2 (03:15→08:21)
[2023-02-01] MEDS: sucralfate 1 gm Tablet PO ×3 (03:15→14:59)
[2023-02-01] MEDS: morphine 4 mg/mL SDV 1 mL 2 MG IVP ×2 (03:16→08:23)
[2023-02-01 04:54] LABS: Basophils # 0.1 10^3/uL (0.0-0.1); Eosinophils # 0.1 10^3/uL (0.0-0.8); Eosinophils % 1.7 %; Hematocrit 36.6 % (36-47); Lymphocytes # 2.1 10^3/uL (0.8-4.8); Lymphocytes % 30.2 %; Mean Corpuscular HGB Conc 34.4 g/dL (30-55); Mean Corpuscular Hemoglobin 29.2 pg (27-33); Mean Corpuscular Volume 84.9 fl (85-98); Mean Platelet Volume 8.9 fL (7.4-10.4); Monocytes # 0.6 10^3/uL (0.2-0.9); Monocytes % 9.2 %; Neutrophils # 3.96 10^3/uL (1.8-7.7); Neutrophils % 57.8 %; Nucleated Red Blood Cells % 0 %; Platelet Count 263 10^3/cmm (157-399); Red Blood Count 4.31 10^6/uL (3.85-5.65); Red Cell Distribution Width 12.3 % (12.1-15.1); White Blood Count 6.86 10^3/uL (3.29-11.43)
[2023-02-01 05:21] LABS: Alanine Aminotransferase 53 U/L (0-33); Albumin Level 3.6 g/dL (3.5-5.2); Alkaline Phosphatase 100 U/L (35-105); Anion Gap 11.1 (5-19); Aspartate Amino Transferase 35 U/L (0-32); Blood Urea Nitrogen 9 mg/dL (6-20); Calcium 8.5 mg/dL (8.5-10.5); Carbon Dioxide 26 mmol/L (22-29); Chloride 98 mmol/L (98-107); Globulin 2.4 g/dL (1.3-4.6); Glomerular Filtration Rate 131.1 mL/min (90-130); Glucose 287 mg/dL (65-115); Magnesium 1.8 mg/dL (1.7-2.3); Osmolality Calculated 281 mOsm/kg (285-295); Potassium 4.1 mmol/L (3.5-5.1); Sodium 131 mmol/L (136-145); Total Bilirubin 0.3 mg/dL (0.15-1.2)
[2023-02-01] MEDS: sodium chloride 0.9% 1,000 ML 100 ML IV (06:35)
[2023-02-01] MEDS: piperacillin-tazobactam 3.375 GM in sodium chloride 0.9% (plus) 50 ML IV ×2 (06:36→14:58)
[2023-02-01] MEDS: insulin glargine 100 units/1 mL 10 UNIT SUBCUT (06:44)
[2023-02-01 07:25] LABS: Glucose Point of Care 240 mg/dL (70-110)
[2023-02-01] MEDS: insulin lispro 100 unit/1 mL SUBCUT ×3 (08:19→17:38)
[2023-02-01] MEDS: levothyroxine 50 mcg Tablet PO (08:20)
[2023-02-01] MEDS: pantoprazole 40 mg SDV IVP (08:20)
[2023-02-01] MEDS: NON-FORMULARY MEDICATION (Buprenorphine-Naloxone 8-2 mg film) 0.25 EACH SUBLINGUAL (08:22)
[2023-02-01] MEDS: magnesium sulfate premix 2 GM/50 ML PIGGYBACK IV (08:31)
[2023-02-01 11:31] LABS: Glucose Point of Care 230 mg/dL (70-110)
--- NOTE | 2023-02-01 12:37 | PM.PN ---
Subjective Subjective: She is overall doing better. Abdominal pain is resolving, but still soreness periumbilically and going into epigastrium. Vitals/I&O/Wt Last Vital Signs Temp 97.5 F L 02/01/23 12:00 Pulse 109 H 02/01/23 12:00 Resp 20 H 02/01/23 12:00 BP 142/96 02/01/23 12:00 Pulse Ox 98 02/01/23 12:00 O2 Del Method Room Air 02/01/23 12:00 01/31/23 02/01/23 02/01/23 22:59 06:59 14:59 Intake Total 1101.667 / 2978.334 1030 / 4008.334 1025 / 1025 Output Total 900 / 900 400 / 1300 Balance 201.667 / 2078.334 630 / 2708.334 1025 / 1025 Weight last 48 hrs Weight 63.503 kg Physical Exam Const: COMMON NORMALS: patient oriented x3 and alert GENERAL APPEARANCE: cooperative ORIENTATION/CONSCIOUSNESS: Yes awake HENMT: COMMON NORMALS: oropharynx normal Neck/C-Spine: COMMON NORMALS: no JVD Resp: COMMON NORMALS: normal respiratory effort and clear to auscultation bilaterally AUSCULTATION: clear to auscultation bilaterally Cardio: COMMON NORMALS: no JVD, regular rhythm, S1 normal heart sound present, S2 normal heart sound present and No murmurs present (Cardio) RHYTHM: regular rhythm HEART SOUNDS: S1 normal heart sound present and S2 normal heart sound present GI: COMMON NORMALS: Normal to inspection, nondistended, normoactive bowel sounds present and Soft to palpation PALPATION: Yes Soft to palpation and Yes Tenderness to palpation present (GI) Extremity: COMMON NORMALS: no joint enlargement and no pedal edema Neuro: COMMON NORMALS: patient oriented x3 and moves all extremities SENSORIUM/ORIENTATION: Yes alert Data 02/01/23 04:30 02/01/23 04:30 Micro: Microbiology 02/01/23 09:08 Blood Culture - Preliminary Blood SPECIMEN COLLECTED 02/01/23 09:12 Blood Culture - Preliminary Blood SPECIMEN COLLECTED 01/30/23 17:48 Urine Culture - Preliminary Urine,Clean Catch Coag positive Staphylococcus A&P Assessment and plan (1) Acute pancreatitis: (2) Urinary tract infection: Continue Zosyn. Follow-up urine culture. Qualifiers: Hematuria presence: without hematuria Urinary tract infection type: acute cystitis Qualified Code(s): N30.00 - Acute cystitis without hematuria Plan 47-year-old female with multiple medical problems presented with complaint of epigastric pain radiating to the back nausea vomiting and urinary discomfort, found to have lipase 92 CT abdomen pelvis consistent with acute pancreatitis and UA positive for more than 100 WBCs. Secondary to UTI Coagulase positive staph UTI: Discussed with her unusual UTI with staph suspected Staph aureus. May raise concern whether seeding through bloodstream infection or other locus. Reviewed abdomen pelvis CT, kidneys without mass, no hydronephrosis. No suggestion of pyelonephritis. 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 Per discussion with field service technician poultry culture will be set up. Follow-up ID and sensitivity. Requested also as per discussion with her blood culture. Requested MRSA PCR. She denies any headache, neck or back pain. No joint pain. Apart from central abdomen/epigastrium no other complaints. Discussed with her in case of lack of improvement or other concerning findings consideration of repeat contrast CT. Some ulcers noted on the left bronson, shallow ulcerations, no drainage, pink granulation at the base, no surrounding erythema. Scars from multiple prior ulcers on bilateral shins. Consider follow-up with infectious disease. Discussed with her to exercise vigilance, discussed consideration of possible hidden focus of infection in case of suspicious symptoms in the future to seek medical attention immediately due to risks of local or distant spread, development of potentially severe or disabling illness. Otherwise suspected gastritis, possible pancreatitis, possibly recurrent pancreatitis. Still with pain, still requiring IV morphine. Add Tylenol, hydrocodone, try to wean off IV medicine. Continue PPI, sucralfate. So far tolerating oral intake. We will stop IV fluid. Reviewed CBC. Reviewed chemistry. Noted mild hyponatremia. Follow-up. Reviewed liver parameters, noted chronic mild transaminitis. Repeat chemistry requested. Reviewed magnesium, noted magnesium level 1.8. Supplement. Recheck magnesium. Also consideration of ERCP in case of recurrent pancreatitis. Noted triglycerides not elevated. Calcium not able to does not drink alcohol. Reviewing prior studies I do see surgeon documentation she had an EGD back in November 2021 with reflux disease in the lower third of esophagus, moderate striped gastritis in the prepyloric area. No abnormalities in the duodenum. Trial of advancement of diet to GI soft Discussed with case management in rounds. Attestations Medical Necessity Statement*: Continue admission for assessment management of coagulase positive UTI, suspected Staph aureus, additional assessment for possible other source, management of suspected gastritis, possible pancreatitis. Diagnoses Acute pancreatitis K85.90 Urinary tract infection N30.00 Hematuria presence: without hematuria Urinary tract infection type: acute cystitis
[2023-02-01] MEDS: HYDROcodone-acetaminophen 5-325 mg Tablet 1 TAB PO (14:59)
[2023-02-01 16:22] LABS: Glucose Point of Care 172 mg/dL (70-110)
--- NOTE | 2023-02-01 18:10 | PC.NURSE ---
Pt stated she would like to leave the hospital. While giving patient 1600 medications, came to speak to the patient and went over all the risks that would be associated with leaving against medical advise. Pt still wished to leave after conversation, pt was given AMA form, in which I was a witness to signature. I then removed Pt's IV.
--- NOTE | 2023-02-01 19:05 | P.DS_ITS ---
Discharge Providers Date of Admission: 01/30/23 21:11 Date of Discharge: February 01, 2023 Attending Provider at Admission: Asya Cruz MD Attending Provider at Discharge: Keyon Quintanilla Primary Care Provider: Israel Otero MD Diagnoses at Discharge Discharge Diagnosis (1) Acute pancreatitis: Status: Acute (2) Urinary tract infection: Status: Acute Qualifiers: Hematuria presence: without hematuria Urinary tract infection type: acute cystitis Qualified Code(s): N30.00 - Acute cystitis without hematuria Reason for Visit Reason for Visit: chest pain Brief History: Mena Cano is a 47 year old female with history of diabetes COPD GERD PTSD major depression generalized anxiety disorder active smoker half pack per day for 35 years hypothyroidism presented with complaint of epigastric and right upper quadrant pain since 4 days.? She reports the pain started 2 weeks ago and has been gradually worsening and is associated with nausea vomiting x1 and decreased appetite.? The pain starts in the epigastric area and radiates to the back, aggravated with food no relieving factors present. she did not have similar complaints in the past.? She is nonalcoholic but ex IV drug user, quit 4 years ago.? No family history of hypercholesterolemia.? She denies any fever cough cold shortness of breath chest pain diarrhea.? But reports having suprapubic heaviness after urination. Hospital Course Hospital Course Lipase on presentation was 90. On suspicion of pancreatitis she was additionally assessed by CT abdomen and pelvis with finding of small amount of edema and fluid interposed between the duodenum and pancreatic head, possibly secondary to pancreatitis. No necrosis or hemorrhage. Mild circumferential urinary bladder wall thickening possibly secondary to underdistention. With symptoms and imaging findings of pancreatitis, she does provide history of some recurrent abdominal pain in the past as well, unclear whether there may have been recurrent pancreatitis in the past with burned-out pancreas, discussed with her, as opposed to possibly is not on pancreatic origin of her symptoms, discussed possible duodenitis. Review of prior EGD studies notes gastritis back in 2021. She does take ibuprofen at home. Discussed with her to discontinue ibuprofen and avoid any NSAIDs. She has been treated with PPI here and at home will be increasing Nexium dose to twice daily. She was treated with bowel rest, IV hydration, pain medication, antiemetics, lipase noted normalized. No suggestion of biliary pancreatitis. She does not drink alcohol. Calcium and triglycerides noncontributory. She is encouraged to quit smoking. She has tolerated trial of oral intake. She was treated with Zosyn for possible urinary tract infection, discussed with her today we are getting the results that bacteria in urine appears to be coagulase positive staph. Suspected Staph aureus. 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 Discussed unusual nature of staphylococcal UTI, although awaiting ID and sensitivity. Did request blood culture. She has remained afebrile, no leukocytosis. No symptoms of systemic infection. No pyelonephritis on CT. Discussed with her still lower probability of possible o ccult infection elsewhere, possibility of bacteremia. She concedes IV drug 4 years ago, but has not had any relapses. Denies any history of endocarditis, joint infection or other systemic MRSA infection. 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 Discussed with her concern for possibility of occult infection, possibly bacteremia although lower but currently not excluded. Blood culture pending. Additional work-up in treatment to be continued, and she was initially agreeable this morning, but subsequently requesting to have a hamburger in the evening otherwise she may leave AMA. Discussed with staff and her diet was made on restricted as she so far has tolerated well. Subsequently again asking that she needs to go outside to smoke, discussed with her unfortunately this is not possible due to federal regulation as well as risk to herself and other patients. On discussion she states she cannot in the hospital any longer, we had a long discussion to see if anything we can do to try to accommodate her, but she is unable to stay. Discussed again with regards to her condition and she is able to teach back with regards to the concerns as well as incomplete work-up and treatment, risks of occult infection, risks of local and distal spread, risk of potentially disabling and/or life-threatening complications. She understands that although we are providing some discharge locations, referrals and instructions for her, these may not treat occult infection, bacteremia, or other complications which may not have been identified due to her premature discharge. Discussed Bactrim due to history of MRSA infection, and she understands that this may treat urinary infection but again understands may not treat occult infection if it is elsewhere. She understands that she may remain here to resume her treatment in case she changes her mind, or return to ER anytime, otherwise follow-up with primary provider as soon as possible. She states also has planned follow-up with infectious disease provider and will discuss current issues with them as well in addition to hepatitis C. She understands to look for any signs of occult infection becoming symptomatic, as well as avoidance of immunosuppressive medications, CSI etc. until clearance of infection can be ascertained. She is additionally asked to follow-up with primary provider to consider H. pylori testing, reassess further by EGD in case of persistence of symptoms, otherwise consideration of MRCP. Avoid NSAIDs. Discussed with her consideration of cannabinoid hyperemesis syndrome, and caution/discontinuation of cannabinoids with any recurrent nausea to exclude this condition. Is encouraged to stop smoking. Please reassess and assist. Continue wound care for shallow recurrent ulcerations with granulation tissue in the left bronson, no wound infection, no surrounding erythema, no drainage. She has been putting triple antibiotic ointment and zinc oxide on the wounds. They are healing well. Please reassess. Physical Exam Narrative: Please see detailed exam during progress note. She is awake, alert, lucid. Conversant, with insight into her condition. Discharge Data Studies Completed and Pending Completed Studies During Hospitalization Category Date Time Status CT abdomen pelvis w con* [id number] Stat Cat Scan 01/30/23 17:07 Completed Pending at discharge Category Date Time Status Blood Culture Stat Lab 02/01/23 09:08 Results Complete Blood Count w/Auto AM LABS Lab 02/02/23 04:00 Ordered Complete Blood Count w/Auto AM LABS Lab 02/03/23 04:00 Ordered Comprehensive Metabolic Panel AM LABS Lab 02/02/23 04:00 Ordered Comprehensive Metabolic Panel AM LABS Lab 02/03/23 04:00 Ordered MRSA [Methicillin Resistant S.aureu] Routine Lab 02/01/23 08:06 Ordered Urine Culture Stat Lab 01/30/23 17:48 Results Radiology Impressions Abdomen/Pelvis CT 01/30/23 17:07 IMPRESSION: 1. 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 Correlate with serum amylase and lipase levels. No organized collection. No necrosis or hemorrhage. 2. Mild circumferential urinary bladder wall thickening, possibly secondary to underdistention. Correlate with urinalysis to exclude cystitis. 3. Additional findings, as above. Laboratory Results WBC 6.86 10^3/uL (3.29-11.43) 02/01/23 04:30 RBC 4.31 10^6/uL (3.85-5.65) 02/01/23 04:30 Hgb 12.60 g/dL (11.27-16.99) 02/01/23 04:30 Hct 36.6 % (36-47) 02/01/23 04:30 MCV 84.9 fl (85-98) L 02/01/23 04:30 MCH 29.2 pg (27-33) 02/01/23 04:30 MCHC 34.4 g/dL (30-55) 02/01/23 04:30 RDW 12.3 % (12.1-15.1) 02/01/23 04:30 Plt Count 263 10^3/cmm (157-399) 02/01/23 04:30 MPV 8.9 fL (7.4-10.4) 02/01/23 04:30 Neut % (Auto) 57.8 % 02/01/23 04:30 Lymph % (Auto) 30.2 % 02/01/23 04:30 [place] % (Auto) 9.2 % 02/01/23 04:30 Eos % (Auto) 1.7 % 02/01/23 04:30 Baso % (Auto) 1.0 % 02/01/23 04:30 Neut # (Auto) 3.96 10^3/uL (1.8-7.7) 02/01/23 04:30 Lymph # (Auto) 2.1 10^3/uL (0.8-4.8) 02/01/23 04:30 [place] # (Auto) 0.6 10^3/uL (0.2-0.9) 02/01/23 04:30 Eos # (Auto) 0.1 10^3/uL (0.0-0.8) 02/01/23 04:30 Baso # (Auto) 0.1 10^3/uL (0.0-0.1) 02/01/23 04:30 Nucleated RBC % (auto) 0 % 02/01/23 04:30 Nucleated RBCs # 0.0 /100WBC 02/01/23 04:30 Sodium 131 mmol/L (136-145) L 02/01/23 04:30 Potassium 4.1 mmol/L (3.5-5.1) 02/01/23 04:30 Chloride 98 mmol/L (98-107) 02/01/23 04:30 Carbon Dioxide 26 mmol/L (22-29) 02/01/23 04:30 Anion Gap 11.1 (5-19) 02/01/23 04:30 BUN 9 mg/dL (6-20) 02/01/23 04:30 Creatinine 0.5 mg/dL (0.5-0.9) 02/01/23 04:30 GFR Calculation 131.1 mL/min (90-130) H 02/01/23 04:30 Glucose 287 mg/dL (65-115) H 02/01/23 04:30 POC Glucose 172 mg/dL (70-110) H 02/01/23 16:08 Calculated Osmolality 281 mOsm/kg (285-295) L 02/01/23 04:30 Calcium 8.5 mg/dL (8.5-10.5) 02/01/23 04:30 Phosphorus 3.2 mg/dL (2.5-4.5) 01/31/23 04:33 Magnesium 1.8 mg/dL (1.7-2.3) 02/01/23 04:30 Total Bilirubin 0.3 mg/dL (0.15-1.2) 02/01/23 04:30 AST 35 U/L (0-32) H 02/01/23 04:30 ALT 53 U/L (0-33) H 02/01/23 04:30 Alkaline Phosphatase 100 U/L (35-105) 02/01/23 04:30 Total Protein 6.0 g/dL (6.6-8.7) L 02/01/23 04:30 Albumin 3.6 g/dL (3.5-5.2) 02/01/23 04:30 Globulin 2.4 g/dL (1.3-4.6) 02/01/23 04:30 Triglycerides 146 mg/dL (0-150) 01/31/23 04:33 Lipase 59 U/L (13-60) 01/31/23 04:33 Urine Color Yellow (Yellow) 01/30/23 17:48 Urine Appearance Cloudy (CLEAR) A 01/30/23 17:48 Urine pH 5 (5-7) 01/30/23 17:48 Ur Specific [place] 1.020 (1.005-1.030) 01/30/23 17:48 Urine Protein 1+ (Negative) H 01/30/23 17:48 Urine Glucose (UA) 4+ (Normal) H 01/30/23 17:48 Urine Ketones 2+ (Negative) H 01/30/23 17:48 Urine Blood 2+ (Negative) H 01/30/23 17:48 Urine Nitrate Negative (Negative) 01/30/23 17:48 Urine Bilirubin Neg (Negative) 01/30/23 17:48 Urine Urobilinogen 4 mg/dL (Negative) H 01/30/23 17:48 Ur Leukocyte Esterase 2+ (Negative) H 01/30/23 17:48 Urine RBC 5-10 /hpf (0-2) H 01/30/23 17:48 Urine WBC >100 /hpf (0-5) H 01/30/23 17:48 Ur Squamous Epith Cells 5-10 /hpf (0-5) H 01/30/23 17:48 Amorphous Sediment Not Reportable 01/30/23 17:48 Urine Bacteria 1+ /hpf (NONE) H 01/30/23 17:48 Urine Yeast 1+ /hpf H 01/30/23 17:48 Vitals Last Vital Signs Temp 97.4 F L 02/01/23 16:43 Pulse 88 02/01/23 16:43 Resp 17 02/01/23 16:43 BP 145/83 02/01/23 16:43 Pulse Ox 99 02/01/23 16:43 O2 Del Method Room Air 02/01/23 16:43 Discharge Plan Discharge Patient Disposition: Left Against Medical Advice Condition: Fair Prescriptions: New sucralfate 1 gram Tablet 1 g PO TID Qty: 90 0RF Bactrim DS 800-160 mg tablet 1 tab PO DAILY 14 Days Qty: 28 0RF Continued (DME) Diabetic Shoes with 3 pairs of Inserts See Rx Instructions .Route .MEDSUPPLY Qty: 1 0RF Rx Instructions: As directed by [facility] (DME) pen needle, diabetic [1st Tier Unifine Pentips] 32 gauge x 5/32 needle See Rx Instructions .Route Qty: 50 12RF Rx Instructions: As directed, use with victoza to administer, daily. (DME) lancets [OneTouch Delica Plus Lancet] 30 gauge misc See Rx Instructions .ROUTE .COMPLEX Qty: 100 1RF Dose Instruction: USE DIRECTED TO TEST BLOOD SUGAR ONCE DAILY. Rx Instructions: USE DIRECTED TO TEST BLOOD SUGAR ONCE DAILY. (DME) Diabetic Shoes with 3 inserts See Rx Instructions .Route .MEDSUPPLY Qty: 1 0RF Rx Instructions: As directed ondansetron 4 mg tablet,disintegrating 4 mg PO Q6H PRN (Reason: nausea and vomiting) Qty: 30 1RF levothyroxine 50 mcg tablet 50 mcg PO DAILY Qty: 30 5RF (DME) blood-glucose meter [Accu-Chek Guide Glucose Meter] Misc See Rx Instructions .Route Qty: 1 0RF Rx Instructions: Check BS TID daily (DME) Accu-Chek Guide test strips Strip See Rx Instructions .Route Qty: 100 0RF Rx Instructions: Check BS TID daily (DME) Dexcom G7 Sensor Device See Rx Instructions .Route Qty: 6 0RF Rx Instructions: As directed (DME) Dexcom G7 Linker Up Misc See Rx Instructions .Route Qty: 1 0RF Rx Instructions: As directed insulin aspart U-100 [Novolog FlexPen U-100 Insulin] 100 unit/mL (3 mL) insulin pen See Rx Instructions .ROUTE .COMPLEX MDD 45 Qty: 15 0RF Rx Instructions: sliding scale tid (pt states lost paper with ss has been using 10-12 units for bs 300 or less and bs greater than 350=14 units) max 45 units per day Glucagon Emergency Kit (human) 1 mg recon soln 1 mg SUBCUT Q20M PRN (Reason: hypoglycemia) Qty: 1 0RF Rx Instructions: until target blood sugar attained mirtazapine 30 mg Tablet 30 mg PO BEDTIME cyclobenzaprine 10 mg Tablet 10 mg PO BID PRN (Reason: Muscle Spasm) doxepin 10 mg Capsule 10 mg PO BEDTIME gabapentin 300 mg Capsule 900 mg PO BID Lantus Solostar U-100 Insulin 100 unit/mL (3 mL) insulin pen 14 unit SUBCUT QAM Suboxone 8-2 mg film See Rx Instructions .ROUTE .COMPLEX Rx Instructions: a quarter strip of film once a day then on Feb 15 2023 dose will change to an eight of a strip per pt Changed Nexium 20 mg Capsule,Delayed Release(Dr/Ec) 20 mg PO BIDWMEAL Qty: 60 0RF Discontinued ibuprofen 200 mg Tablet 400 mg PO Q6H PRN (Reason: Pain) Referrals: Israel Otero MD [Primary Care Provider] - 02/07/23 2:00 pm Discharge Diet: Advance as tolerated Patient Instructions: Sulfamethoxazole/Trimethoprim (By mouth), Sucralfate (By mouth), Esomeprazole (By mouth), How to Stop Smoking (GEN), Pancreatitis (GEN), Urinary Tract Infection in Women (GEN), Cigarette Smoking and Your Health (GEN), Against Medical Advice (DC), Duodenitis (GEN), Opioid Safety Activity Restrictions/Additional Instructions: Please note you are leaving the hospital prematurely before assessment and treatment could be completed. You are encouraged to stay to continue treatment or return to the ER, otherwise follow-up with a physician as soon as possible. Urine culture is growing Staph which is an unusual bacteria for a UTI and may be concerning for infection elsewhere. In case of bacterial infection in the bloodstream or he had an focus of infection elsewhere oral antibiotic course would not be sufficient to treat it and you are at risk of local or distal spread of infection, progression to severe infection, sepsis, or infection spreading to spine or brain causing paralysis or other disability, life- threatening complication. Please stop ibuprofen and avoid any NSAIDs, these medications contribute to inflammation in your stomach. Follow up with your primary provider for assessment following suspected gastritis, discuss referral for testing for H pylori and consideration of repeat EGD if symptoms persist (last one was 2021). Discuss possible pancreatitis and assessment by MRCP. Follow-up with your primary doctor for reassessment of ulcers on your left bronson. Please stop smoking. Work with your primary provider to help you quit. Discharge Attestations Time Spent in Discharge Care*: greater than 30 min Status at Discharge: Cognitive status at discharge: cognitively intact , Behavioral status at discharge: cooperative , Quality Metrics Clinical Quality Measures [ No reported AMI, CVA or VTE this stay] Coding Level of Care Code 45855 Total time (in minutes) for Discharge: 60 Diagnoses Acute pancreatitis K85.90 Urinary tract infection N30.00 Hematuria presence: without hematuria Urinary tract infection type: acute cystitis
== END 2023-02-01 18:05 | disposition left against medical advice (07) | DRG 439 ==
LOC: ER 20:46 → MEDSURG 21:12
PROVIDERS: Admitting Provider Internal Medicine; Emergency Provider Family Medicine; PCP Family Medicine Adult Medicine; Visit Provider Internal Medicine
DX: K85.90 Acute pancreatitis without necrosis or infection, unspecified (principal); N30.00 Acute cystitis without hematuria; Z53.29 Procedure and treatment not carried out because of patient's decision for other reasons; B95.8 Unspecified staphylococcus as the cause of diseases classified elsewhere; E11.40 Type 2 diabetes mellitus with diabetic neuropathy, unspecified; E11.319 Type 2 diabetes mellitus with unspecified diabetic retinopathy without macular edema; J44.9 Chronic obstructive pulmonary disease, unspecified; K21.9 Gastro-esophageal reflux disease without esophagitis; F43.10 Post-traumatic stress disorder, unspecified; F32.A Depression, unspecified; F41.1 Generalized anxiety disorder; F17.210 Nicotine dependence, cigarettes, uncomplicated; E03.9 Hypothyroidism, unspecified; Z86.14 Personal history of Methicillin resistant Staphylococcus aureus infection; Z86.19 Personal history of other infectious and parasitic diseases; Z79.4 Long term (current) use of insulin; M06.9 Rheumatoid arthritis, unspecified; Z91.199 Patient's noncompliance with other medical treatment and regimen due to unspecified reason; G47.33 Obstructive sleep apnea (adult) (pediatric)
CPT/HCPCS: 36415; 36416; 74177; 80053; 81001; 82962; 83690; 83735; 84100; 84478; 85025; 87040; 87077; 87086; 87186; 93005; 96372; 96374; 96375; 96376; 99285; C9113; J1650; J1815; J2270; J2405; J2543; J2765; J3475; J3490; J7030; Q9967

== ENCOUNTER 2023-02-03 12:19 | Outpatient (CLI) | payer MEDICAID, SELFPAY ==
[2023-02-03 13:00] LABS: Cholesterol 203 mg/dL (0-200); HDL Cholesterol 58 mg/dL (60-100); LDL Cholesterol Calculated 132 mg/dL (50-129); LDL HDL Ratio 2.28 RATIO (0.00-3.22); Triglycerides 64 mg/dL (0-150)
[2023-02-07 21:19] LABS: Hepatitis C Genotype RNA 1a
== END 2023-02-03 12:20 | disposition home or self-care (01) ==
PROVIDERS: PCP Family Medicine Adult Medicine; Visit Provider Student in an Organized Health Care Education/Training Program
DX: B19.20 Unspecified viral hepatitis C without hepatic coma (principal)
CPT/HCPCS: 36415; 80061; 87902

== ENCOUNTER 2023-02-12 13:43 | Emergency (ER) | payer MEDICAID, SELFPAY ==
[2023-02-12 13:48] VITALS: BP 149/98; PULSE 102; RESP 18; TEMP 36.6; O2SAT 99; BMI 26.5
[2023-02-12 14:19] VITALS: BP 149/110; PULSE 84; RESP 16; O2SAT 99
[2023-02-12] MEDS: haloperidol inj 5 mg/mL INJ 1 mL 2.5 MG IVP (14:29)
[2023-02-12] MEDS: LORazepam 2 mg/mL INJ 1 mL IVP (14:31)
[2023-02-12 14:32] LABS: Basophils # 0.1 10^3/uL (0.0-0.1); Basophils % 0.6 %; Eosinophils % 0.1 %; Hematocrit 45.1 % (36-47); Lymphocytes # 1.7 10^3/uL (0.8-4.8); Mean Corpuscular HGB Conc 33.7 g/dL (30-55); Mean Corpuscular Volume 85.9 fl (85-98); Monocytes # 0.4 10^3/uL (0.2-0.9); Monocytes % 4.6 %; Neutrophils # 6.81 10^3/uL (1.8-7.7); Neutrophils % 75.4 %; Nucleated Red Blood Cells % 0 %; Platelet Count 318 10^3/cmm (157-399); Red Blood Count 5.25 10^6/uL (3.85-5.65); Red Cell Distribution Width 11.9 % (12.1-15.1); White Blood Count 9.04 10^3/uL (3.29-11.43)
--- NOTE | 2023-02-12 14:32 | ED_ITS ---
HPI - General Adult General: Chief complaint: General Medical Stated complaint: withdrawal Time Seen by Provider: 02/12/23 13:51 Source: patient Mode of arrival: ambulatory History of Present Illness: 47-year-old female who states she is on a Suboxone program at [facility] that she has been tapering off she is undergoing quarter of film tab once a day she ran out 2-1/2 days ago. She is complaining of withdrawal and generalized cramping aching not feeling well. She complains of nausea vomiting and diarrhea and headache. Onset (ago): day(s) Severity: moderate Quality: aching Relieving factors: none Exacerbating factors: none Associated symptoms: Reports decreased appetite, malaise, nausea and vomiting; Deny chest pain, confusion, cough, diaphoresis, dyspnea, fevers/chills, headache(s), rash, palpitations, seizures, short of breath, syncope or weakness Treatments prior to arrival: none Review of Systems Const: Reports: malaise; Denies: fever(s), chills or diaphoresis Card: Denies: chest pain, palpitations or syncope Resp: Denies: dyspnea GI: Reports: nausea and vomiting Skin/Breast: Denies: rash Neuro: Denies: headache(s) or confusion PFSH ED 2 PFSH: Medical History COPD (chronic obstructive pulmonary disease) with emphysema Diabetes type 2, uncontrolled Diabetic macular edema Diabetic neuropathy Diabetic retinopathy, nonproliferative, severe Dyslipidemia Encounter for monitoring Suboxone maintenance therapy [facility] 06/02/2022 GERD (gastroesophageal reflux disease) Hemochromatosis carrier History of rheumatoid arthritis Hx of hepatitis C treatment with Dr. Morgan ~1999 Hypothyroidism Insomnia Lumbar disc disease with radiculopathy JOSE (obstructive sleep apnea) per sleep study 2010, CPAP of 13 recommended at that time, no longer with machine Osteoarthritis involving multiple joints on both sides of body Polysubstance (including opioids) dependence w/o physiol dependence smoker, severe cannabis, Opioid, Methamphetamines Pressure sore on sacrum Psychiatric care PTSD (post-traumatic stress disorder) Scoliosis associated with other condition Smoker Supraventricular tachycardia (~04/2020) identified during ED visit 04/2020, treated with 6mg adenosine with conversion to sinus Unintentional weight loss of more than 10% body weight within 6 months Surgical History History of hysterectomy (~2011) also Kimberly urethral plication History of incision and drainage (~2013) right upper extremity and R lower extremity History of tubal ligation History of umbilical hernia repair (~2011) Hx of cataract surgery bilateral eye Family History Father Diabetes Mother Diabetes Grandfather Pacemaker Denies family history of Stroke Social History Smoking and tobacco status: current every day smoker cigarettes Packs smoked per day: 0.5 Years cigarettes smoked: 33 Quit status (tobacco): has tried quititng Number of times tried to quit tobacco: 5 Second hand smoke exposure: Yes Smoking risk assessment/counseling performed?: No Alcohol intake: former Desire information about alcohol rehabilitation?: No Counseling given: No Substance/Drug Use: former Date of last use: IV drug use - 2019 Desire information about substance/drug rehabilitation?: No Counseling given: No Caregiver/support person: No Lives independently: Yes Household members: spouse Housing: House Marital status: Life Partner Number of children: 2 Number of grandchildren: 0 Highest education level completed: High School Graduate service: No Current occupational status: unemployed Pets and animals: Yes Pets & animals: dog(s) Do you think of yourself as: Straight/Heterosexual Current gender identity: Female Sirena/Mandaeism: Yazdanism Physical Exam Const: GENERAL APPEARANCE: cooperative and comfortable ORIENTATION/CONSCIOUSNESS: Yes awake, Yes oriented to person, Yes oriented to place and Yes oriented to time HENMT: COMMON NORMALS: normocephalic, atraumatic and hearing grossly normal bilaterally HEAD & SCALP: normocephalic and atraumatic Resp: COMMON NORMALS: normal respiratory effort, No retractions, No use of ac cessory muscles and clear to auscultation bilaterally AUSCULTATION: clear to auscultation bilaterally Cardio: COMMON NORMALS: regular rate, regular rhythm and No murmurs present (Cardio) RATE: regular rate RHYTHM: regular rhythm GI: COMMON NORMALS: Soft to palpation and No hepatosplenomegaly present AUSCULTATION: Yes normoactive bowel sounds PALPATION: Yes Soft to palpation, No Tenderness to palpation present (GI), No Guarding due to palpation present ( GI) and Yes No hepatosplenomegaly present Extremity: COMMON NORMALS: normal to inspection, capillary refill normal, no clubbing, cyanosis or edema, no calf tenderness and no pedal edema Neuro: SENSORIUM/ORIENTATION: Yes oriented to person, Yes oriented to place and Yes oriented to time Skin: COMMON NORMALS: no rashes or lesions noted GENERAL SKIN EXAM: no rashes or lesions noted Course Vital Signs: Vital signs: Vital Signs Temperature 97.9 F 02/12/23 13:48 Pulse Rate 84 02/12/23 14:19 Respiratory Rate 16 02/12/23 14:19 Blood Pressure 149/110 02/12/23 14:19 Pulse Oximetry 99 02/12/23 14:19 Oxygen Delivery Me thod Room Air 02/12/23 14:19 MDM - General Adult Medical Decision Making Patient improved after fluids and antiemetics. Discussed Dr. palacios he recommends having her follow-up with her Suboxone clinic tomorrow. She does have some mild hyponatremia which she has had in the past so I do not believe this is driving her symptoms at this time. IV fluids given should improve. Given promethazine to use as needed, follow-up with Suboxone clinic Medical Records I reviewed the patient's medical records. Lab Data I reviewed the patient's lab results. 02/12/23 14:25 02/12/23 14:25 Laboratory Results WBC 9.04 10^3/uL (3.29-11.43) 02/12/23 14:25 RBC 5.25 10^6/uL (3.85-5.65) 02/12/23 14:25 Hgb 15.20 g/dL (11.27-16.99) 02/12/23 14:25 Hct 45.1 % (36-47) 02/12/23 14:25 MCV 85.9 fl (85-98) 02/12/23 14:25 MCH 29.0 pg (27-33) 02/12/23 14:25 MCHC 33.7 g/dL (30-55) 02/12/23 14:25 RDW 11.9 % (12.1-15.1) L 02/12/23 14:25 Plt Count 318 10^3/cmm (157-399) 02/12/23 14:25 MPV 9.0 fL (7.4-10.4) 02/12/23 14:25 Neut % (Auto) 75.4 % 02/12/23 14:25 Lymph % (Auto) 19.0 % 02/12/23 14:25 Harmon % (Auto) 4.6 % 02/12/23 14:25 Eos % (Auto) 0.1 % 02/12/23 14:25 Baso % (Auto) 0.6 % 02/12/23 14:25 Neut # (Auto) 6.81 10^3/uL (1.8-7.7) 02/12/23 14:25 Lymph # (Auto) 1.7 10^3/uL (0.8-4.8) 02/12/23 14:25 Harmon # (Auto) 0.4 10^3/uL (0.2-0.9) 02/12/23 14:25 Eos # (Auto) 0.0 10^3/uL (0.0-0.8) 02/12/23 14:25 Baso # (Auto) 0.1 10^3/uL (0.0-0.1) 02/12/23 14:25 Nucleated RBC % (auto) 0 % 02/12/23 14:25 Nucleated RBCs # 0.0 /100WBC 02/12/23 14:25 Sodium 124 mmol/L (136-145) L 02/12/23 14:25 Potassium 4.4 mmol/L (3.5-5.1) 02/12/23 14:25 Chloride 90 mmol/L (98-107) L 02/12/23 14:25 Carbon Dioxide 18 mmol/L (22-29) L 02/12/23 14:25 Anion Gap 20.4 (5-19) H 02/12/23 14:25 BUN 12 mg/dL (6-20) 02/12/23 14:25 Creatinine 0.6 mg/dL (0.5-0.9) 02/12/23 14:25 GFR Calculation 106.3 mL/min (90-130) 02/12/23 14:25 Glucose 317 mg/dL (65-115) H 02/12/23 14:25 Calculated Osmolality 270 mOsm/kg (285-295) L 02/12/23 14:25 Calcium 9.4 mg/dL (8.5-10.5) 02/12/23 14:25 Total Bilirubin 0.8 mg/dL (0.15-1.2) 02/12/23 14:25 AST 62 U/L (0-32) H 02/12/23 14:25 ALT 88 U/L (0-33) H 02/12/23 14:25 Alkaline Phosphatase 124 U/L (35-105) H 02/12/23 14:25 Total Protein 7.8 g/dL (6.6-8.7) 02/12/23 14:25 Albumin 3.8 g/dL (3.5-5.2) 02/12/23 14:25 Globulin 4.0 g/dL (1.3-4.6) 02/12/23 14:25 No radiology studies performed this visit Discharge Plan Discharge Patient Disposition: Home Clinical Impression: Nausea & vomiting, Polysubstance (including opioids) dependence w/o physiol dependence Condition: Stable Prescriptions: New promethazine 25 mg tablet 25 mg PO Q6H PRN (Reason: nausea and vomiting) Qty: 20 0RF No Action quetiapine [Seroquel] 100 mg tablet 100 mg PO DAILY Qty: 30 3RF Rx Instructions: 1/2 to one tablet at bedtime as needed (DME) Diabetic Shoes with 3 pairs of Inserts See Rx Instructions .Route .MEDSUPPLY Qty: 1 0RF Rx Instructions: As directed by [facility] (DME) pen needle, diabetic [1st Tier Unifine Pentips] 32 gauge x 5/32 needle See Rx Instructions .Route Qty: 50 12RF Rx Instructions: As directed, use with victoza to administer, daily. (DME) lancets [OneTouch Delica Plus Lancet] 30 gauge misc See Rx Instructions .ROUTE .COMPLEX Qty: 100 1RF Dose Instruction: USE DIRECTED TO TEST BLOOD SUGAR ONCE DAILY. Rx Instructions: USE DIRECTED TO TEST BLOOD SUGAR ONCE DAILY. (DME) Diabetic Shoes with 3 inserts See Rx Instructions .Route .MEDSUPPLY Qty: 1 0RF Rx Instructions: As directed ondansetron 4 mg tablet,disintegrating 4 mg PO Q6H PRN (Reason: nausea and vomiting) Qty: 30 1RF levothyroxine 50 mcg tablet 50 mcg PO DAILY Qty: 30 5RF (DME) blood-glucose meter [Accu-Chek Guide Glucose Meter] Misc See Rx Instructions .Route Qty: 1 0RF Rx Instructions: Check BS TID daily (DME) Accu-Chek Guide test strips Strip See Rx Instructions .Route Qty: 100 0RF Rx Instructions: Check BS TID daily (DME) Dexcom G7 Sensor Device See Rx Instructions .Route Qty: 6 0RF Rx Instructions: As directed (DME) Dexcom G7 Malware Analyst Misc See Rx Instructions .Route Qty: 1 0RF Rx Instructions: As directed insulin aspart U-100 [Novolog FlexPen U-100 Insulin] 100 unit/mL (3 mL) insulin pen See Rx Instructions .ROUTE .COMPLEX MDD 45 Qty: 15 0RF Rx Instructions: sliding scale tid (pt states lost paper with ss has been using 10-12 units for bs 300 or less and bs greater than 350=14 units) max 45 units per day Glucagon Emergency Kit (human) 1 mg recon soln 1 mg SUBCUT Q20M PRN (Reason: hypoglycemia) Qty: 1 0RF Rx Instructions: until target blood sugar attained mirtazapine 30 mg Tablet 30 mg PO BEDTIME cyclobenzaprine 10 mg Tablet 10 mg PO BID PRN (Reason: Muscle Spasm) doxepin 10 mg Capsule 10 mg PO BEDTIME gabapentin 300 mg Capsule 900 mg PO BID Lantus Solostar U-100 Insulin 100 unit/mL (3 mL) insulin pen 14 unit SUBCUT QAM Suboxone 8-2 mg film See Rx Instructions .ROUTE .COMPLEX Rx Instructions: a quarter strip of film once a day then on Feb 15 2023 dose will change to an eight of a strip per pt Nexium 20 mg Capsule,Delayed Release(Dr/Ec) 20 mg PO BIDWMEAL Qty: 60 0RF Bactrim DS 800-160 mg tablet 1 tab PO DAILY 14 Days Qty: 28 0RF Discharge Orders: Discharge ED (Routine); Ordered 02/12/23 Ordered By: Serafin Yu Referrals: Israel Otero MD [Primary Care Provider] - Patient Instructions: Opioid Safety, Pain Management Activity Restrictions/Additional Instructions: Contact the clinic that manages her Suboxone therapy tomorrow for further instructions. Coding Level of Care Code ED Medical Front Desk Specialist for [facility] Hernandez
[2023-02-12] MEDS: sodium chloride 0.9% 1,000 ML 999 ML IV ×2 (14:35→16:20)
--- NOTE | 2023-02-12 14:44 | PC.NURSE ---
after administration of ativan and haldol pts o2 sats dropped to 85%, pt placed on 2L of oxygen. now sats are 96%
[2023-02-12 14:57] LABS: Alanine Aminotransferase 88 U/L (0-33); Albumin Level 3.8 g/dL (3.5-5.2); Alkaline Phosphatase 124 U/L (35-105); Blood Urea Nitrogen 12 mg/dL (6-20); Calcium 9.4 mg/dL (8.5-10.5); Carbon Dioxide 18 mmol/L (22-29); Chloride 90 mmol/L (98-107); Glomerular Filtration Rate 106.3 mL/min (90-130); Glucose 317 mg/dL (65-115); Osmolality Calculated 270 mOsm/kg (285-295); Sodium 124 mmol/L (136-145); Total Bilirubin 0.8 mg/dL (0.15-1.2); Total Protein 7.8 g/dL (6.6-8.7)
[2023-02-12 15:01] LABS: Anion Gap 20.4 (5-19); Aspartate Amino Transferase 62 U/L (0-32); Potassium 4.4 mmol/L (3.5-5.1)
--- NOTE | 2023-02-12 15:01 | PC.NURSE ---
pt has discharge orders at this time, discharge delayed d/t 1 liter of NS currently infusing. pt has another 1L of NS ordered to be infused after.
--- NOTE | 2023-02-12 16:20 | PC.NURSE ---
pt's 2nd liter of NS started, discharge delayed d/t waiting on infusion to complete
[2023-02-12 16:58] VITALS: BP 153/94; PULSE 123; RESP 16; O2SAT 97
== END 2023-02-12 17:00 | disposition home or self-care (01) ==
PROVIDERS: Emergency Provider Family Medicine; PCP Family Medicine Adult Medicine
DX: R11.2 Nausea with vomiting, unspecified (principal); F19.20 Other psychoactive substance dependence, uncomplicated; F11.20 Opioid dependence, uncomplicated; Z79.4 Long term (current) use of insulin; F17.210 Nicotine dependence, cigarettes, uncomplicated; J44.9 Chronic obstructive pulmonary disease, unspecified; E11.9 Type 2 diabetes mellitus without complications; E78.5 Hyperlipidemia, unspecified; Z86.19 Personal history of other infectious and parasitic diseases
CPT/HCPCS: 36415; 80053; 85025; 96361; 96374; 96375; 99284; J1630; J2060; J7030

== ENCOUNTER 2023-02-13 07:58 | Outpatient (CLI) | payer MEDICAID, SELFPAY ==
--- NOTE | 2023-02-13 08:15 | US_ITS ---
WS: [id number] RIGHT UPPER QUADRANT ULTRASOUND HISTORY: B19.20 - Unspecified viral hepatitis C without hepatic coma COMPARISON: 07/31/2021, CT 01/30/2023 Liver: 13.1 cm in length. Normal size liver. Variable echogenicity throughout the liver with areas of hepatic steatosis. No mass identified. Portal Vein: Normal hepatopetal flow with monophasic waveform. Gallbladder: Normally distended. No stones identified. There is a prominent gallbladder tail which wa s present also on prior studies. No gallbladder wall thickening. CBD: 0.4 cm Pancreas: Portions of the head and tail are obscured. The body is negative. Right kidney: 10.6 cm in length. Normal size and echogenicity. No hydronephrosis or mass. Aorta and IVC: Unremarkable abdominal aorta and IVC. No ascites. IMPRESSION: 1. Hepatic steatosis. 2. Normal gallbladder. 3. No bile duct dilatation.
== END 2023-02-13 07:59 | disposition home or self-care (01) ==
PROVIDERS: PCP Family Medicine Adult Medicine; Visit Provider Student in an Organized Health Care Education/Training Program
DX: B19.20 Unspecified viral hepatitis C without hepatic coma (principal); K76.0 Fatty (change of) liver, not elsewhere classified
CPT/HCPCS: 76705

== ENCOUNTER → 2023-02-16 10:38 | Outpatient (BNVA) | payer MEDICAID, SELFPAY | PROVIDERS: PCP Family Medicine Adult Medicine; Visit Provider Student in an Organized Health Care Education/Training Program | DX: Z11.4 Encounter for screening for human immunodeficiency virus [HIV] (principal); B19.20 Unspecified viral hepatitis C without hepatic coma | CPT/HCPCS: 36415; 87806 ==

== ENCOUNTER → 2023-03-12 13:12 | Outpatient (BNVA) | payer MEDICAID, SELFPAY | PROVIDERS: PCP Family Medicine Adult Medicine; Visit Provider Nurse Practitioner | DX: R05.9 Cough, unspecified (principal); Z11.52 Encounter for screening for COVID-19 | CPT/HCPCS: 87426 ==

== ENCOUNTER 2023-05-06 13:37 | Emergency (ER) | payer MEDICAID, SELFPAY ==
--- NOTE | 2023-05-06 13:38 | XRR_ITS ---
PROCEDURE INFORMATION: Exam: XR Chest Exam date and time: 05/06/2023 3:42 PM Age: 47 years old Clinical indication: Pain; Chest pressure; Additional info: Cough, chest discomfort TECHNIQUE: Imaging protocol: Radiologic exam of the chest. Views: 1 view. COMPARISON: CR XR chest 1V portable [id number] 08/17/2021 6:12 PM FINDINGS: Lungs: Unremarkable. No consolidation. Pleural spaces: Unremarkable. No pleural effusion. No pneumothorax. Heart/Mediastinum: Unremarkable. No cardiomegaly. Bones/joints: Unremarkable. XR/XR chest 1V portable [id number] IMPRESSION: No acute findings.
[2023-05-06 13:42] VITALS: BP 153/91; PULSE 83; RESP 17; TEMP 36.9; O2SAT 97
--- NOTE | 2023-05-06 15:21 | PC.NURSE ---
RN ASSUMED CARE AT THIS TIME.
--- NOTE | 2023-05-06 15:22 | ED_ITS ---
HPI - URI/Sore Throat General: Chief Complaint: Upper Respiratory Infection Stated Complaint: congestion, cough Time Seen by Provider: 05/06/23 14:27 History of Present Illness: 47-year-old female comes in today with c ough and congestion starting 2 weeks ago. Patient has a history of diabetes mellitus, emphysema. Patient reports no fever. Patient reports difficulty with being outside as aggravates the cough. Associated symptoms: Deny chest pain, fever(s) or vomiting Review of Systems General: Reports: 10 or more systems reviewed and unremarkable except in HPI and below Const: Denies: fever(s) Card: Denies: chest pain Resp: Reports: dyspnea and non-productive cough GI: Denies: vomiting : Denies: difficulty voiding Musc: Denies: neck pain or back pain Skin/Breast: Denies: rash PFSH ED PFSH: Medical History Acute pancreatitis COPD (chronic obstructive pulmonary disease) with emphysema Diabetes type 2, uncontrolled Diabetic macular edema Diabetic retinopathy, nonproliferative, severe Dyslipidemia Encounter for monitoring Suboxone maintenance therapy [facility] 06/02/2022 Encounter for smoking cessation counseling GERD (gastroesophageal reflux disease) Hemochromatosis carrier History of rheumatoid arthritis Hx of hepatitis C treatment with Dr. Morgan ~1999 Hypothyroidism Insomnia Lumbar disc disease with radiculopathy JOSE (obstructive sleep apnea) per sleep study 2010, CPAP of 13 recommended at that time, no longer with machine Osteoarthritis involving multiple joints on both sides of body Polysubstance (including opioids) dependence w/o physiol dependence smoker, severe cannabis, Opioid, Methamphetamines Psychiatric care PTSD (post-traumatic stress disorder) Scoliosis associated with other condition Smoker Supraventricular tachycardia (~04/2020) identified during ED visit 04/2020, treated with 6mg adenosine with conversion to sinus Unintentional weight loss of more than 10% body weight within 6 months Surgical History History of hysterectomy (~2011) also Kimberly urethral plication History of incision and drainage (~2013) right upper extremity and R lower extremity History of tubal ligation History of umbilical hernia repair (~2011) Hx of cataract surgery bilateral eye Family History Father Diabetes Mother Diabetes Grandfather Postsurgical cardiac pacemaker in situ Denies family history of Stroke Social History Smoking and tobacco/nicotine status: current every day tobacco/nicotine user cigarettes Packs smoked per day: 0.5 Years cigarettes smoked: 33 Quit status (tobacco/nicotine): has tried quititng Number of times tried to quit tobacco: 5 Second hand smoke exposure: Yes Alcohol intake: former Substance/Drug Use: former Date of last use: IV drug use - 2019 Caregiver/support person: No Lives independently: Yes Household members: spouse Housing: House Marital status: Life Partner Number of children: 2 Number of grandchildren: 0 Highest education level completed: High School Graduate service: No Current occupational status: unemployed Pets and animals: Yes Pets & animals: dog(s) Do you think of yourself as: Straight/Heterosexual Current gender identity: Female Sirena/Buddhist: Taoism Physical Exam Const: COMMON NORMALS: alert HENMT: COMMON NORMALS: normocephalic HEAD & SCALP: normocephalic Neck/C-Spine: COMMON NORMALS: no meningeal signs Resp: COMMON NORMALS: normal respiratory effort and clear to auscultation bilaterally AUSCULTATION: clear to auscultation bilaterally Cardio: COMMON NORMALS: regular rate and regular rhythm RATE: regular rate RHYTHM: regular rhythm GI: COMMON NORMALS: non-tender : COMMON NORMALS: Yes no CVA tenderness BLADDER/KIDNEY EXAM: Yes no CVA tenderness Back/Pelvis: COMMON NORMALS: no CVA tenderness Extremity: COMMON NORMALS: full ROM Neuro: SENSORIUM/ORIENTATION: Yes alert MENINGEAL SIGNS: Yes no meningeal signs Skin: COMMON NORMALS: turgor normal GENERAL SKIN EXAM: turgor normal Course Vital Signs: Vital signs: Vital Signs Temperature 98.4 F 05/06/23 13:42 Pulse Rate 86 05/06/23 15:39 Respiratory Rate 16 05/06/23 15:39 Blood Pressure 150/96 05/06/23 15:39 Pulse Oximetry 96 05/06/23 15:39 Oxygen Delivery Me thod Room Air 05/06/23 15:39 MDM - URI/Sore Throat Medical Decision Making 47-year-old female comes in today for complaints of cough making it difficult for her to sleep or catch her breath. Patient reports illness for 2 weeks. On exam patient has wheezing in lung hollis. Patient is a chronic cigarette smoker. Differential diagnosis includes but not limited to asthma, acute bronchitis, exacerbation of COPD. Believe patient probably has some acute on chronic bronchitis. We will treat with a dose of steroid 10 mg of dexamethasone IM, doxycycline, and albuterol inhaler. Patient was also given some benzonatate capsules to use as needed to help with cough. Patient reports understanding of care plan and need for follow-up or return to the ER. XR interpretation done by ED provider, pending radiology final review Discharge Plan Discharge Patient Disposition: Home Clinical Impression: Bronchitis Condition: Stable Prescriptions: New doxycycline hyclate 100 mg capsule 100 mg PO BID 7 Days Qty: 14 0RF benzonatate 100 mg capsule 100 mg PO TID PRN (Reason: cough) Qty: 15 0RF No Action Mavyret 100-40 mg tablet 3 tab PO DAILY 56 Days Qty: 168 0RF Rx Instructions: must administer with a meal/food quetiapine [Seroquel] 100 mg tablet 100 mg PO DAILY Qty: 30 3RF Rx Instructions: 1/2 to one tablet at bedtime as needed (DME) Diabetic Shoes with 3 pairs of Inserts See Rx Instructions .Route .MEDSUPPLY Qty: 1 0RF Rx Instructions: As directed by [facility] (DME) pen needle, diabetic [1st Tier Unifine Pentips] 32 gauge x 5/32 needle See Rx Instructions .Route Qty: 50 12RF Rx Instructions: As directed, use with victoza to administer, daily. (DME) lancets [OneTouch Delica Plus Lancet] 30 gauge misc See Rx Instructions .ROUTE .COMPLEX Qty: 100 1RF Dose Instruction: USE DIRECTED TO TEST BLOOD SUGAR ONCE DAILY. Rx Instructions: USE DIRECTED TO TEST BLOOD SUGAR ONCE DAILY. (DME) Diabetic Shoes with 3 inserts See Rx Instructions .Route .MEDSUPPLY Qty: 1 0RF Rx Instructions: As directed ondansetron 4 mg tablet,disintegrating 4 mg PO Q6H PRN (Reason: nausea and vomiting) Qty: 30 1RF Lantus Solostar U-100 Insulin 100 unit/mL (3 mL) insulin pen 50 unit SUBCUT DAILY 90 Days Qty: 45 0RF insulin aspart U-100 [Novolog FlexPen U-100 Insulin] 100 unit/mL (3 mL) insulin pen 30 unit SUBCUT TID MDD 45 30 Days Qty: 80 0RF (DME) Dexcom G7 Sensor Device See Rx Instructions .Route Qty: 9 0RF Rx Instructions: As directed sucralfate [Carafate] 1 gram tablet 1 g PO ONCE nicotine 7 mg/24 hr patch 24 hour 1 patch transdermal Q24H Qty: 14 0RF metoprolol tartrate 25 mg tablet 25 mg PO BID Qty: 60 5RF levothyroxine 50 mcg tablet 50 mcg PO DAILY Qty: 30 5RF (DME) blood-glucose meter [Accu-Chek Guide Glucose Meter] Misc See Rx Instructions .Route Qty: 1 0RF Rx Instructions: Check BS TID daily (DME) Dexcom G7 Surveying Teacher Misc See Rx Instructions .Route Qty: 1 0RF Rx Instructions: As directed zolpidem 10 mg tablet 10 mg PO .qod PRN (Reason: insomnia) 30 Days Qty: 15 2RF Rx Instructions: Can take every other day as needed for sleep promethazine 25 mg tablet 25 mg PO Q6H PRN (Reason: nausea and vomiting) Qty: 20 0RF (DME) OneTouch Ultra Test Strip See Rx Instructions .ROUTE .COMPLEX Qty: 100 0RF Dose Instruction: USE 1 STRIP TO CHECK GLUCOSE THREE TIMES DAILY Rx Instructions: USE 1 STRIP TO CHECK GLUCOSE THREE TIMES DAILY baclofen 10 mg tablet 10 mg PO BID PRN (Reason: muscle spasm) Qty: 60 3RF Glucagon Emergency Kit (human) 1 mg recon soln 1 mg SUBCUT Q20M PRN (Reason: hypoglycemia) Qty: 1 0RF Rx Instructions: until target blood sugar attained gabapentin 300 mg Capsule 900 mg PO BID Nexium 20 mg Capsule,Delayed Release(Dr/Ec) 20 mg PO BIDWMEAL Qty: 60 0RF Discharge Orders: Discharge ED (Routine); Ordered 05/06/23 Ordered By: Polo Jennings Referrals: Israel Otero MD [Primary Care Provider] - Discharge Diet: Usual diet Discharge Activity: Increase activity as tolerated Patient Instructions: Bronchitis (Acute) - Adult Activity Restrictions/Additional Instructions: Drink plenty of water. Use inhaler as needed for persistent coughing or wheezing. Take benzonatate capsules 1 every 8 hours as needed for cough control. Continue antibiotics as directed. Follow-up with primary care as needed. Return to ED for worsening symptoms such as increasing shortness of breath, severe chest pain, or fever greater than 100.4. Coding Level of Care Code ED Surveillance Systems Analyst for [facility]
--- NOTE | 2023-05-06 15:30 | PC.NURSE ---
RN ASSUMED CARE AT THIS TIME
[2023-05-06] MEDS: doxycycline 100 mg Tablet PO (15:35)
[2023-05-06] MEDS: dexamethasone 10 mg/mL INJ IM (15:36)
[2023-05-06 15:39] VITALS: BP 150/96; PULSE 86; RESP 16; O2SAT 96
[2023-05-06] MEDS: albuterol 8 gm MDI 2 PUFF INHALATION (16:11)
[2023-05-06 16:12] VITALS: PULSE 78; RESP 16; O2SAT 96
[2023-05-06 16:14] VITALS: PULSE 75
[2023-05-06 16:34] VITALS: BP 121/93; PULSE 88; RESP 18; O2SAT 96
== END 2023-05-06 16:35 | disposition home or self-care (01) ==
PROVIDERS: Emergency Provider Nurse Practitioner Family; PCP Family Medicine Adult Medicine
DX: J44.89 Other specified chronic obstructive pulmonary disease (principal); J40 Bronchitis, not specified as acute or chronic; Z79.4 Long term (current) use of insulin; F17.210 Nicotine dependence, cigarettes, uncomplicated; J44.9 Chronic obstructive pulmonary disease, unspecified; E11.9 Type 2 diabetes mellitus without complications; E78.5 Hyperlipidemia, unspecified; Z86.19 Personal history of other infectious and parasitic diseases
CPT/HCPCS: 71045; 94640; 96372; 99284; J1100; J3535

== ENCOUNTER 2023-06-11 13:03 | Emergency (ER) | payer MEDICAID, SELFPAY ==
[2023-06-11 13:10] VITALS: BP 138/87; PULSE 118; RESP 14; TEMP 36.3; O2SAT 94; BMI 28.1
--- NOTE | 2023-06-11 13:15 | XRR_ITS ---
PROCEDURE INFORMATION: Exam: XR Bilateral Hips Exam date and time: 06/11/2023 2:30 PM Age: 47 years old Clinical indication: Injury or trauma; Fall; Blunt trauma (contusions or hematomas); Bilateral; Hip and pelvic region; Additional info: Trauma/fall/pain TECHNIQUE: Imaging protocol: Radiologic exam of the bilateral hips. Views: 2 views of hips with pelvis when performed. COMPARISON: CT abdomen pelvis w con* [id number] 01/30/2023 5:53 PM FINDINGS: Bones/joints: Unremarkable. No acute fracture. Soft tissues: Unremarkable. XR/XR hip BI 3-4V wo/w pel [id number] IMPRESSION: No acute findings.
--- NOTE | 2023-06-11 13:58 | W.ED.EXTPRO ---
HPI - Extremity Problem General: Chief complaint: Extremity Injury, Lower Stated complaint: Fall/Left hip pain Time Seen by Provider: 06/11/23 13:19 History of Present Illness: 47-year-old female reports that she did accidentally rolled over in bed last night and fell off the side landing on her left hip. Patient reports pain and discomfort in the left hip with movement this morning. Patient appears nontoxic. Patient appears in moderate pain. Patient moves all extremities well. Patient is weightbearing. Patient reports just difficulty with walking due to feeling stiff and having pain. Review of Systems General: Reports: 10 or more systems reviewed and unremarkable except in HPI and below Musc: Reports: extremity pain [facility] ED PFSH: Medical History (Updated 06/11/23 @ 14:45 by NORRIS Perez) Smokers' cough Acute pancreatitis Unintentional weight loss of more than 10% body weight within 6 months Diabetic macular edema Diabetic retinopathy, nonproliferative, severe Encounter for monitoring Suboxone maintenance therapy [facility] 06/02/2022 Polysubstance (including opioids) dependence w/o physiol dependence smoker, severe cannabis, Opioid, Methamphetamines Insomnia Smoker COPD (chronic obstructive pulmonary disease) with emphysema Scoliosis associated with other condition Lumbar disc disease with radiculopathy Hemochromatosis carrier Diabetes type 2, uncontrolled Encounter for smoking cessation counseling Hx of hepatitis C treatment with Dr. Morgan ~1999 PTSD (post-traumatic stress disorder) History of rheumatoid arthritis Osteoarthritis involving multiple joints on both sides of body GERD (gastroesophageal reflux disease) JOSE (obstructive sleep apnea) per sleep study 2010, CPAP of 13 recommended at that time, no longer with machine Dyslipidemia Hypothyroidism Supraventricular tachycardia (~04/2020) identified during ED visit 04/2020, treated with 6mg adenosine with conversion to sinus Surgical History Hx of cataract surgery bilateral eye History of umbilical hernia repair (~2011) History of incision and drainage (~2013) right upper extremity and R lower extremity History of tubal ligation History of hysterectomy (~2011) also Kimberly urethral plication Family History Father Diabetes Mother Diabetes Grandfather Postsurgical cardiac pacemaker in situ Denies family history of Stroke Social History Smoking and tobacco/nicotine status: current every day tobacco/nicotine user cigarettes Packs smoked per day: 0.5 Years cigarettes smoked: 33 Quit status (tobacco/nicotine): has tried quititng Number of times tried to quit tobacco: 5 Second hand smoke exposure: Yes Alcohol intake: former Substance/Drug Use: former Date of last use: IV drug use - 2019 Caregiver/support person: No Lives independently: Yes Household members: spouse Housing: House Marital status: Life Partner Number of children: 2 Number of grandchildren: 0 Highest education level completed: High School Graduate service: No Current occupational status: unemployed Pets and animals: Yes Pets & animals: dog(s) Do you think of yourself as: Straight/Heterosexual Current gender identity: Female Sirena/Yarsanism: Orthodoxy Physical Exam Const: COMMON NORMALS: alert HENMT: COMMON NORMALS: normocephalic HEAD & SCALP: normocephalic Neck/C-Spine: COMMON NORMALS: full ROM Resp: COMMON NORMALS: normal respiratory effort Cardio: RATE: tachycardic Back/Pelvis: COMMON NORMALS: thoracic and lumbar spine normal to inspection Extremity: LEFT LOWER EXTREMITY: Yes hip joint (Lateral tenderness to palpation. Weightbearing normal range of motion) Left hip: Yes inspection, Yes palpation and Yes ROM Neuro: SENSORIUM/ORIENTATION: Yes alert Psych: COMMON NORMALS: cooperative Course Vital Signs: Vital signs: Vital Signs Temperature 97.4 F L 06/11/23 13:10 Pulse Rate 118 H 06/11/23 13:10 Respiratory Rate 14 06/11/23 13:10 Blood Pressure 138/87 06/11/23 13:10 Pulse Oximetry 94 06/11/23 13:10 Oxygen Delivery Me thod Room Air 06/11/23 13:10 MDM - Extremity (Nontraumatic) Medical Decision Making 47-year-old female comes in today with complaints of left hip pain rating down her leg. Patient reports slipping out of bed last night and landing on her hip. Patient's pain is mainly on her left lateral hip where she landed. Palpation of the lumbar spine elicits no pain. Patient is ambulatory. Differential diagnosis includes pelvis fracture, contusion, sprain. X-rays of the hip and pelvis noted no obvious fractures. Patient was written a prescription for lidocaine patches to use on the area of pain. Patient was recommended use [id number] analgesics as needed for further pain relief. Recommend ice and heat for further pain control. Patient was written a work note for tomorrow if she needed rest. Patient reported understanding agreed to plan. XR interpretation done by ED provider, pending radiology final review Discharge Plan Discharge Patient Disposition: Home Clinical Impression: Contusion of hip, left Qualifiers: Encounter type: initial encounter Qualified Code(s): S70.02XA - Contusion of left hip, initial encounter Condition: Stable Prescriptions: New lidocaine 5 % adhesive patch,medicated 2 patch topical DAILY PRN (Reason: pain) Qty: 15 0RF Rx Instructions: leave on most painful area for up to 12 hrs No Action hydroxyzine HCl 50 mg tablet 50 mg PO Q8H PRN (Reason: anxiety/panic) Qty: 60 1RF mupirocin 2 % ointment 1 applic topical BID Qty: 15 0RF (DME) Diabetic Shoes with 3 pairs of Inserts See Rx Instructions .Route .MEDSUPPLY Qty: 1 0RF Rx Instructions: As directed by [facility] (DME) pen needle, diabetic [1st Tier Unifine Pentips] 32 gauge x 5/32 needle See Rx Instructions .Route Qty: 50 12RF Rx Instructions: As directed, use with victoza to administer, daily. (DME) lancets [OneTouch Delica Plus Lancet] 30 gauge misc See Rx Instructions .ROUTE .COMPLEX Qty: 100 1RF Dose Instruction: USE DIRECTED TO TEST BLOOD SUGAR ONCE DAILY. Rx Instructions: USE DIRECTED TO TEST BLOOD SUGAR ONCE DAILY. (DME) Diabetic Shoes with 3 inserts See Rx Instructions .Route .MEDSUPPLY Qty: 1 0RF Rx Instructions: As directed ondansetron 4 mg tablet,disintegrating 4 mg PO Q6H PRN (Reason: nausea and vomiting) Qty: 30 1RF insulin aspart U-100 [Novolog FlexPen U-100 Insulin] 100 unit/mL (3 mL) insulin pen 30 unit SUBCUT TID MDD 90 30 Days Qty: 80 0RF (DME) Dexcom G7 Sensor Device See Rx Instructions .Route Qty: 9 0RF Rx Instructions: As directed metoprolol tartrate 25 mg tablet 25 mg PO BID Qty: 60 5RF levothyroxine 50 mcg tablet 50 mcg PO DAILY Qty: 30 5RF (DME) blood-glucose meter [Accu-Chek Guide Glucose Meter] Misc See Rx Instructions .Route Qty: 1 0RF Rx Instructions: Check BS TID daily (DME) Dexcom G7 Clinical Veterinarian Misc See Rx Instructions .Route Qty: 1 0RF Rx Instructions: As directed (DME) OneTouch Ultra Test Strip See Rx Instructions .ROUTE .COMPLEX Qty: 100 0RF Dose Instruction: USE 1 STRIP TO CHECK GLUCOSE THREE TIMES DAILY Rx Instructions: USE 1 STRIP TO CHECK GLUCOSE THREE TIMES DAILY baclofen 10 mg tablet 10 mg PO BID PRN (Reason: muscle spasm) Qty: 60 3RF albuterol sulfate 90 mcg/actuation HFA aerosol inhaler 2 puff inhalation Q6H PRN (Reason: shortness of breath or wheezing) Qty: 8.5 0RF insulin glargine [Lantus Solostar U-100 Insulin] 100 unit/mL (3 mL) insulin pen 22 unit SUBCUT QAM promethazine 25 mg Tablet 12.5 - 25 mg PO Q6H PRN (Reason: Nausea And Vomiting) Nexium 24HR 20 mg Capsule,Delayed Release(Dr/Ec) 20 mg PO DAILY gabapentin 300 mg Capsule 1,200 mg PO BID Discharge Orders: Discharge ED (Routine); Ordered 06/11/23 Ordered By: Polo Jennings Referrals: Israel Otero MD [Primary Care Provider] - Discharge Diet: Usual diet Discharge Activity: Increase activity as tolerated Patient Instructions: Musculoskeletal Pain (ED) Activity Restrictions/Additional Instructions: Activity as tolerated. Use ice or heat to the area for pain. Use acetaminophen and/or ibuprofen as needed for further pain relief. A prescription for lidocaine patches was sent to the pharmacy to be used as needed for pain. Apply the patch to the area of pain and leave in place for 1 day. Follow-up with primary care as needed. Return to ED for new concerns. Stand Alone Forms: Work/School Release Coding Level of Care Code ED Hand Spray Operator for Esperanza Hernandez
--- NOTE | 2023-06-11 14:17 | PC.PHAR ---
pt states she takes care of her own medications-pt states she is not taking ambien 10mg eod prn pt states not covered by her insurance-pt states she does not take seroquel -notes are made in the pharmacy comments
[2023-06-11 15:02] VITALS: BP 104/74; PULSE 89; RESP 18; O2SAT 94
== END 2023-06-11 15:04 | disposition home or self-care (01) ==
PROVIDERS: Emergency Provider Nurse Practitioner Family; PCP Family Medicine Adult Medicine
DX: S70.02XA Contusion of left hip, initial encounter (principal); Z79.4 Long term (current) use of insulin; Z72.0 Tobacco use; J44.9 Chronic obstructive pulmonary disease, unspecified; E11.9 Type 2 diabetes mellitus without complications; Z86.19 Personal history of other infectious and parasitic diseases; E78.5 Hyperlipidemia, unspecified; W06.XXXA Fall from bed, initial encounter
CPT/HCPCS: 73522; 99283

== ENCOUNTER → 2023-08-08 09:50 | Outpatient (BNVA) | payer MEDICAID, SELFPAY | PROVIDERS: PCP Family Medicine Adult Medicine; Visit Provider Internal Medicine | DX: E11.311 Type 2 diabetes mellitus with unspecified diabetic retinopathy with macular edema (principal); E03.9 Hypothyroidism, unspecified; E78.5 Hyperlipidemia, unspecified; E11.43 Type 2 diabetes mellitus with diabetic autonomic (poly)neuropathy; K31.84 Gastroparesis; E11.65 Type 2 diabetes mellitus with hyperglycemia; E11.40 Type 2 diabetes mellitus with diabetic neuropathy, unspecified | CPT/HCPCS: 36415; 80053; 80061; 82044; 83036; 84439; 84443 ==

== ENCOUNTER 2023-10-27 07:55 | Emergency (ER) | payer MEDICAID, SELFPAY ==
[2023-10-27] VITALS (16 sets, daily range): BP systolic 151–163; BP diastolic 95–112; PULSE 70–91; RESP 13–22; TEMP 36.7; O2SAT 96–100
--- NOTE | 2023-10-27 08:28 | ECG_ITS ---
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 Measurements Intervals [place] Rate: 72 P: 40 [place]: 156 QRS: 5 QRSD: 78 T: 19 QT: 383 QTc: 421 Interpretive Statements SINUS RHYTHM POSSIBLE ANTERIOR MYOCARDIAL INFARCTION , PROBABLY OLD [30 ms Q WAVE IN V3/V4, OR R < 0.2 mV IN V4] Compared to ECG 01/30/2023 13:52:38 No significant changes Electronically Signed On 10-27-2023 13:03:09 CDT by Chris Allen M.D. [id number]
--- NOTE | 2023-10-27 08:28 | CT_ITS ---
WS: [id number] CT HEAD NONCONTRAST HISTORY: Symptoms of acute stroke, LEFT leg weakness. Headache. TECHNIQUE: Contiguous axial imaging performed through the brain in 2.5 mm imaging. Bone and soft tiss ue windows. Sagittal and coronal reformats reviewed. All CT scans at [facility] use at least one of these dose optimization techniques: automated exposure control; mA and/or kV adjustment per pa tient size (includes targeted exams where dose is matched to clinical indication); or iterative recon struction. DLP: 985.08 mGy COMPARISON: None available. No acute intracranial hemorrhage, midline shift or mass effect. No atrophy or prior infarcts or herniation. Ventricles: Normal size with no hydrocephalus. No inferior displacement the cerebellar tonsils. Paranasal sinuses: As visualized are clear. Mastoid air cells: Well pneumatized. Calvarium and scalp: Skull is intact with no soft tissue edema or swelling. CT/CT head thrombolytic [id number] IMPRESSION: Negative head CT.
--- NOTE | 2023-10-27 08:30 | W.ED.NEUROSD ---
Documented by User: ROSANNE Tse 10/27/23 12:07 HPI - Neuro Symptoms/Deficit General: Chief Complaint: Neuro Symptoms/Deficit Stated Complaint: left leg and foot numb Time Seen by Provider: 10/27/23 08:22 Source: patient Mode of arrival: ambulatory Limitations: no limitations History of Present Illness: Patient is a 48-year-old female with a history of SVT, JOSE, hepatitis C, hypothyroidism, dyslipidemia, diabetes-poorly controlled, lumbar stenosis with neurogenic claudication, peripheral neuropathy, macular degeneration, previous polysubstance abuse, presents to ED today with complaint of acute paresthesias to her left lower extremity and left face. Patient states she began noticing symptoms yesterday morning around 5 AM when she awoke. Patient states she went to work and was having difficulty walking stating she could not feel the left leg. She states because of her altered gait, her left hip began hurting her. She does have a chronic history of sacroiliac discomforts. Patient states she has chronic lower back pain. She has not had any significant weakness. No headache or visual change/loss. No dizziness. She denies any issues with word finding. Does feel like her speech was slightly slurred yesterday morning when she first awoke for a few hours but this is gone now. She is edentulous and wears dentures to her uppers. Onset (ago): day(s) (yesterday around 5am) Location: left face and left leg History of same: No Severity: moderate Quality: numb, tingling and constant Relieving factors: none Exacerbating factors: none On Anticoagulants: No Associated symptoms: Deny chest pain, headache(s), malaise, nausea, syncope or vomiting Treatments Prior to Arrival: none Review of Systems Const: Denies: fever(s), chills, body aches, fatigue or malaise Eyes: Denies: change in vision or blurry vision Card: Denies: chest pain, palpitations, irregular heart rhythm, lightheadedness, syncope or dyspnea on exertion Resp: Denies: dyspnea, productive cough or pain on inspiration GI: Denies: abdominal pain, nausea, vomiting, heartburn or diarrhea : Denies: flank pain, difficulty voiding, dysuria, urinary frequency, urinary urgency or urinary hesitancy Musc: Reports: back pain (chronic) and joint pain (L hip); Denies: neck pain, extremity pain, extremity swelling, joint swelling, joint redness, joint warmth or muscle cramps Skin/Breast: Denies: rash Neuro: Reports: numbness in extremities, sensory changes and difficulty walking (secondary to numbness in left leg); Denies: headache(s), weakness in extremities, lack of coordination, frequent falls or dizziness PFS ED PFSH: Medical History Supraventricular tachycardia (~04/2020) identified during ED visit 04/2020, treated with 6mg adenosine with conversion to sinus Generalized anxiety disorder with panic attacks Smokers' cough Acute pancreatitis Unintentional weight loss of more than 10% body weight within 6 months Diabetic macular edema Diabetic retinopathy, nonproliferative, severe Polysubstance (including opioids) dependence w/o physiol dependence smoker, severe cannabis, Opioid, Methamphetamines Insomnia Smoker COPD (chronic obstructive pulmonary disease) with emphysema Scoliosis associated with other condition Lumbar disc disease with radiculopathy Hemochromatosis carrier Diabetes type 2, uncontrolled PTSD (post-traumatic stress disorder) History of rheumatoid arthritis Osteoarthritis involving multiple joints on both sides of body GERD (gastroesophageal reflux disease) JOSE (obstructive sleep apnea) per sleep study 2010, CPAP of 13 recommended at that time, no longer with machine Dyslipidemia Hypothyroidism Surgical History Hx of cataract surgery bilateral eye History of umbilical hernia repair (~2011) History of incision and drainage (~2013) right upper extremity and R lower extremity History of tubal ligation History of hysterectomy (~2011) also Kimberly urethral plication Family History Father Diabetes Mother Diabetes Grandfather Postsurgical cardiac pacemaker in situ Denies family history of Stroke Social History Smoking and tobacco/nicotine status: current every day tobacco/nicotine user cigarettes Packs smoked per day: 0.5 Years cigarettes smoked: 33 Quit status (tobacco/nicotine): has tried quititng Number of times tried to quit tobacco: 5 Second hand smoke exposure: Yes Alcohol intake: former Substance/Drug Use: former Date of last use: IV drug use - 2019 Caregiver/support person: No Lives independently: Yes Household members: spouse Housing: House Marital status: Life Partner Number of children: 2 Number of grandchildren: 0 Highest education level completed: High School Graduate service: No Current occupational status: unemployed Pets and animals: Yes Pets & animals: dog(s) Do you think of yourself as: Straight/Heterosexual Current gender identity: Female Sirena/Sabianism: Zoroastrianism NIH stroke score NIHSS: Level Of Consciousness - 1a: 0 Level Of Consciousness Questions - 1b: Both Correct Level Of Consciousness Commands - 1c: Both Correct Best Gaze - 2: Normal Visual [place] - 3: No Visual Loss Facial Palsy - 4: Normal Motor Arm Right - 5: No Drift Motor Arm Left - 5: No Drift Motor Leg Right - 6: No Drift Motor Leg Left - 6: No Drift Limb Ataxia - 7: Absent Sensory - 8: Mild To Moderate Loss Best Language - 9: No Aphasia Dysarthia - 10: Normal Extinction And Inattention - 11: 0 Score: Total Score: 1 Physical Exam Const: COMMON NORMALS: no acute distress, patient oriented x3, no limitations, alert and well nourished GENERAL APPEARANCE: cooperative and appears older than stated age ORIENTATION/CONSCIOUSNESS: Yes awake, Yes oriented to person, Yes oriented to place and Yes oriented to time HENMT: COMMON NORMALS: normocephalic, atraumatic and EAC's normal HEAD & SCALP: normal to inspection, normocephalic and atraumatic FACE & SINUS: normal facial exam and face symmetric EXTERNAL AUDITORY CANAL: EAC's normal MOUTH: lip normal TEETH & GINGIVA: Yes dentures (upper) and Yes edentulous Eye: GENERAL EYE: appearance normal, both eyes and all related structures and normal light reflex VISUAL LANIER: Yes other (no visual cuts) DIRECT OPHTHALMOSCOPY: Yes normal light reflex Resp: COMMON NORMALS: normal respiratory effort and clear to auscultation bilaterally AUSCULTATION: clear to auscultation bilaterally Cardio: COMMON NORMALS: regular rate and regular rhythm RATE: regular rate RHYTHM: regular rhythm GI: COMMON NORMALS: Normal to inspection, nondistended, normoactive bowel sounds present, Soft to palpation and non-tender PALPATION: Yes Soft to palpation : COMMON NORMALS: Yes no CVA tenderness BLADDER/KIDNEY EXAM: Yes no CVA tenderness Back/Pelvis: COMMON NORMALS: no CVA tenderness THORACIC SPINE/UPPER BACK: No thoracic spinal tenderness LUMBAR SPINE/LOWER BACK: Yes lumbar spinal tenderness (chronic) and Yes straight leg raise negative bilaterally PELVIS: Yes sciatic notch tenderness (chronic bilaterally) SACRUM: no tenderness COCCYX: no tenderness Extremity: COMMON NORMALS: normal to inspection, full ROM, capillary refill normal, no joint enlargement, no clubbing, cyanosis or edema, no calf tenderness and no pedal edema NARRATIVE EXTREMITY EXAM: pain in left hip with leg raise GENERAL: Yes normal exam except as noted Neuro: COMMON NORMALS: patient oriented x3, moves all extremities and no focal motor deficits SENSORIUM/ORIENTATION: Yes alert, Yes oriented to person, Yes oriented to place and Yes oriented to time SPEECH: speech normal GAIT: Yes Unable to assess gait MOTOR EXAM: 5/5 motor strength present throughout DEEP TENDON REFLEXES: Right patellar reflex intensity grade: 2+ and Left patellar reflex intensity grade: 2+ Skin: COMMON NORMALS: no rashes or lesions noted GENERAL SKIN EXAM: no rashes or lesions noted Course Consultations: Consultation #1: Dr. Richard-recommends neurology follow-up in clinic; recommend starting her on an aspirin and statin Vital Signs: Vital signs: Vital Signs Temperature 98.0 F 10/27/23 12:17 Pulse Rate 91 10/27/23 12:17 Respiratory Rate 18 10/27/23 12:17 Blood Pressure 160/112 10/27/23 12:17 Pulse Oximetry 100 10/27/23 12:17 Oxygen Delivery Me thod Room Air 10/27/23 08:22 MDM - Neuro Symptoms/Deficit Medical Decision Making Patient is a 48-year-old female presents to ED today with complaint of numbness/paresthesias to her entire left leg as well as the left side of her face starting at 5 AM yesterday morning. She has no motor weakness. Her NIH upon arrival is 1 for the sensory complaints. Patient does have a longstanding history of chronic back pain and chronic sacroiliac pain as well as a diagnosis of lumbar stenosis with neurogenic claudication. With these diagnoses, she has never had numbness/paresthesias diffusely to the left leg. On exam she has no paresthesias in a specific nerve distribution. This, coupled with her facial numbness, makes me concerned for possible CVA versus TIA. Patient CT head here is negative. Her CTA is unremarkable. Ran case by Dr. Richard, neurologist on-call, who feels he can follow-up with patient in his office. Recommend starting her on a statin and aspirin. Patient states she used to be on a statin but no longer is taking this. Her last lipid panel reviewed. Will have case management set her up with a follow-up neurology appointment. Blood work here unremarkable apart from her significantly elevated diabetes. She is a chronically uncontrolled diabetic. She had not taken any of her morning insulin this morning. Blood sugars trending down with IV insulin and fluids given here. Medical Records I reviewed the patient's medical records. Lab Data I reviewed the patient's lab results. 10/27/23 09:37 10/27/23 09:[address] 10/27/23 08:28 IMPRESSION: Negative head CT. Head/Neck CTA 10/27/23 09:14 IMPRESSION: 1. No cervical carotid artery stenosis. 2. Small amount of calcified plaque in the distal intracranial LEFT ICA. 3. No thrombus or plaque or aneurysm in the [place]. Laboratory Results WBC 7.14 10^3/uL (3.29-11.43) 10/27/23 09:37 RBC 4.87 10^6/uL (3.85-5.65) 10/27/23 09:37 Hgb 14.60 g/dL (11.27-16.99) 10/27/23 09:37 Hct 42.6 % (36-47) 10/27/23 09:37 MCV 87.5 fl (85-98) 10/27/23 09:37 MCH 30.0 pg (27-33) 10/27/23 09:37 MCHC 34.3 g/dL (30-55) 10/27/23 09:37 RDW 12.5 % (12.1-15.1) 10/27/23 09:37 Plt Count 247 10^3/cmm (157-399) 10/27/23 09:37 MPV 9.8 fL (7.4-10.4) 10/27/23 09:37 Neut % (Auto) 61.1 % 10/27/23 09:37 Lymph % (Auto) 29.8 % 10/27/23 09:37 [place] % (Auto) 6.4 % 10/27/23 09:37 Eos % (Auto) 1.3 % 10/27/23 09:37 Baso % (Auto) 1.0 % 10/27/23 09:37 Neut # (Auto) 4.36 10^3/uL (1.8-7.7) 10/27/23 09:37 Lymph # (Auto) 2.1 10^3/uL (0.8-4.8) 10/27/23 09:37 [place] # (Auto) 0.5 10^3/uL (0.2-0.9) 10/27/23 09:37 Eos # (Auto) 0.1 10^3/uL (0.0-0.8) 10/27/23 09:37 Baso # (Auto) 0.1 10^3/uL (0.0-0.1) 10/27/23 09:37 Nucleated RBC % (auto) 0 % 10/27/23 09:37 Nucleated RBCs # 0.0 /100WBC 10/27/23 09:37 PT 12.00 SECONDS (12.1-14.9) L 10/27/23 09:37 INR 0.87 (0.8-1.2) 10/27/23 09:37 APTT 20.8 SECONDS (23.9-36.7) L 10/27/23 09:37 Sodium 129 mmol/L (136-145) L 10/27/23 09:37 Potassium 4.5 mmol/L (3.5-5.1) 10/27/23 09:37 Chloride 95 mmol/L (98-107) L 10/27/23 09:37 Carbon Dioxide 23 mmol/L (22-29) 10/27/23 09:37 Anion Gap 15.5 (5-19) 10/27/23 09:37 BUN 16 mg/dL (6-20) 10/27/23 09:37 Creatinine 0.6 mg/dL (0.5-0.9) 10/27/23 09:37 GFR Calculation 105.8 mL/min (90-130) 10/27/23 09:37 Glucose 525 mg/dL (65-115) H* 10/27/23 09:37 POC Glucose 251 mg/dL (70-110) H 10/27/23 12:11 Calculated Osmolality 293 mOsm/kg (285-295) 10/27/23 09:37 Calcium 8.9 mg/dL (8.5-10.5) 10/27/23 09:37 Total Bilirubin 0.3 mg/dL (0.15-1.2) 10/27/23 09:37 AST 14 U/L (0-32) 10/27/23 09:37 ALT 21 U/L (0-33) 10/27/23 09:37 Alkaline Phosphatase 153 U/L (35-105) H 10/27/23 09:37 Total Protein 6.8 g/dL (6.6-8.7) 10/27/23 09:37 Albumin 3.8 g/dL (3.5-5.2) 10/27/23 09:37 Globulin 3.0 g/dL (1.3-4.6) 10/27/23 09:37 Urine Color Yellow (Yellow) 10/27/23 09:37 Urine Appearance Clear (CLEAR) 10/27/23 09:37 Urine pH 6 (5-7) 10/27/23 09:37 Ur Specific [place] 1.010 (1.005-1.030) 10/27/23 09:37 Urine Protein Neg (Negative) 10/27/23 09:37 Urine Glucose (UA) 4+ (Normal) H 10/27/23 09:37 Urine Ketones 1+ (Negative) H 10/27/23 09:37 Urine Blood 2+ (Negative) H 10/27/23 09:37 Urine Nitrate Negative (Negative) 10/27/23 09:37 Urine Bilirubin Neg (Negative) 10/27/23 09:37 Urine Urobilinogen Norm mg/dL (Negative) 10/27/23 09:37 Ur Leukocyte Esterase Negative (Negative) 10/27/23 09:37 Urine RBC None /hpf (0-2) 10/27/23 09:37 Urine WBC 0-4 /hpf (0-5) H 10/27/23 09:37 Ur Squamous Epith Cells 0-4 /hpf (0-5) H 10/27/23 09:37 Amorphous Sediment Not Reportable 10/27/23 09:37 Urine Bacteria 2+ /hpf (NONE) H 10/27/23 09:37 Urine Yeast 1+ /hpf H 10/27/23 09:37 Urine Opiates Screen Negative ng/mL (Negative) 10/27/23 09:37 Ur Barbiturates Screen Negative ng/mL (Negative) 06/07/24 09:37 Ur Phencyclidine Scrn Negative ng/mL (Negative) 10/27/23 09:37 Ur Amphetamines Screen Negative ng/mL (Negative) 10/27/23 09:37 U Benzodiazepines Scrn Negative ng/mL (Negative) 10/27/23 09:37 Urine Cocaine Screen Negative ng/mL (Negative) 10/27/23 09:37 U Marijuana (THC) Screen Positive ng/mL (Negative) H 10/27/23 09:37 All radiology interpretation(s) finalized by discharge Discharge Plan Discharge Patient Disposition: Home Clinical Impression: Facial paresthesia, Paresthesia of left leg Condition: Stable Prescriptions: New atorvastatin 10 mg tablet 10 mg PO DAILY Qty: 30 0RF No Action omeprazole 40 mg capsule,delayed release(DR/EC) 40 mg PO DAILY PRN (Reason: acid reflux) Qty: 30 5RF levothyroxine 75 mcg tablet 75 mcg PO DAILY Qty: 90 3RF pregabalin 75 mg capsule 75 mg PO BID 30 Days Qty: 60 1RF ([facility] [place]) Diabetic Shoes with 3 pairs of Inserts See Rx Instructions .Route .MEDSUPPLY Qty: 1 0RF Rx Instructions: As directed by [facility] ([facility] [place]) lancets [OneTouch Delica Plus Lancet] [facility] See Rx Instructions .ROUTE .COMPLEX Qty: 100 1RF Dose Instruction: USE DIRECTED TO TEST BLOOD SUGAR ONCE DAILY. Rx Instructions: USE DIRECTED TO TEST BLOOD SUGAR ONCE DAILY. ([facility] [place]) Diabetic Shoes with 3 inserts See Rx Instructions .Route .MEDSUPPLY Qty: 1 0RF Rx Instructions: As directed celecoxib 200 mg capsule 200 mg PO DAILY PRN (Reason: pain) Qty: 30 2RF hydroxyzine HCl 25 mg tablet 25 mg PO TID PRN (Reason: itching) Qty: 90 0RF ([facility] [place]) blood-glucose meter [Accu-Chek Guide Glucose Meter] Misc See Rx Instructions .Route Qty: 1 0RF Rx Instructions: Check BS TID daily ([facility] [place]) Dexcom G7 [employer] Professor Misc See Rx Instructions .Route Qty: 1 0RF Rx Instructions: As directed ([facility] [place]) OneTouch Ultra Test Strip See Rx Instructions .ROUTE .COMPLEX Qty: 100 0RF Dose Instruction: USE 1 STRIP TO CHECK GLUCOSE THREE TIMES DAILY Rx Instructions: USE 1 STRIP TO CHECK GLUCOSE THREE TIMES DAILY insulin glargine [Lantus Solostar U-100 Insulin] 100 unit/mL (3 mL) insulin pen 22 unit SUBCUT QAM Qty: 15 1RF ondansetron 4 mg tablet,disintegrating 4 mg PO Q6H PRN (Reason: nausea and vomiting) Qty: 30 1RF (DME) pen needle, diabetic [1st Tier Unifine Pentips] 32 gauge x 5/32 needle See Rx Instructions .Route Qty: 50 12RF Rx Instructions: As directed, use with victoza to administer, daily. albuterol sulfate 90 mcg/actuation HFA aerosol inhaler 2 puff inhalation Q6H PRN (Reason: shortness of breath or wheezing) Qty: 8.5 0RF baclofen 10 mg tablet 10 mg PO BID PRN (Reason: muscle spasm) Qty: 60 3RF metoprolol tartrate 25 mg tablet 25 mg PO BID Qty: 60 5RF (DME) Dexcom G7 Sensor Device See Rx Instructions .ROUTE .COMPLEX Qty: 6 0RF Dose Instruction: USE DIRECTED Rx Instructions: USE DIRECTED lidocaine 5 % adhesive patch,medicated 2 patch topical DAILY PRN (Reason: pain) Qty: 15 0RF Rx Instructions: leave on most painful area for up to 12 hrs clonazepam 0.5 mg tablet 0.5 mg PO Q12H PRN (Reason: anxiety attacks) mupirocin 2 % ointment 1 applic topical BID PRN (Reason: SKIN IRRITATON) Novolog FlexPen U-100 Insulin 100 unit/mL (3 mL) insulin pen 15 - 20 unit SUBCUT TID MDD 90 Discharge Orders: Discharge ED (Routine); Ordered 10/27/23 Ordered By: Edilma Corona Referrals: Israel Otero MD [Primary Care Provider] - Patient Instructions: Paresthesia (ED) Activity Restrictions/Additional Instructions: As we discussed case management will contact you early next week to help set you up with your follow-up neurology appointment. In addition to the atorvastatin that I have prescribed to you you also need to start taking a full 324 mg aspirin daily. You need to return to the emergency department for any weakness noted to your arms or legs, facial drooping, slurred speech, trouble speaking, severe dizziness, headache, or any other concerns you may have. You may also follow-up with primary care in the meantime until we can get you to see a neurologist. Coding Level of Care Code ED Supervisor [employer] for Chg Fwd Documented by User: Serafin Yu DO 10/27/23 16:20 HPI - Neuro Symptoms/Deficit General: Chief Complaint: Neuro Symptoms/Deficit Stated Complaint: left leg and foot numb Time Seen by Provider: 10/27/23 08:22 PFSH ED PFSH: Medical History Supraventricular tachycardia (~04/2020) identified during ED visit 04/2020, treated with 6mg adenosine with conversion to sinus Generalized anxiety disorder with panic attacks Smokers' cough Acute pancreatitis Unintentional weight loss of more than 10% body weight within 6 months Diabetic macular edema Diabetic retinopathy, nonproliferative, severe Polysubstance (including opioids) dependence w/o physiol dependence smoker, severe cannabis, Opioid, Methamphetamines Insomnia Smoker COPD (chronic obstructive pulmonary disease) with emphysema Scoliosis associated with other condition Lumbar disc disease with radiculopathy Hemochromatosis carrier Diabetes type 2, uncontrolled PTSD (post-traumatic stress disorder) History of rheumatoid arthritis Osteoarthritis involving multiple joints on both sides of body GERD (gastroesophageal reflux disease) JOSE (obstructive sleep apnea) per sleep study 2010, CPAP of 13 recommended at that time, no longer with machine Dyslipidemia Hypothyroidism Surgical History Hx of cataract surgery bilateral eye History of umbilical hernia repair (~2011) History of incision and drainage (~2013) right upper extremity and R lower extremity History of tubal ligation History of hysterectomy (~2011) also Kimberly urethral plication Family History Father Diabetes Mother Diabetes Grandfather Postsurgical cardiac pacemaker in situ Denies family history of Stroke Social History Smoking and tobacco/nicotine status: current every day tobacco/nicotine user cigarettes Packs smoked per day: 0.5 Years cigarettes smoked: 33 Quit status (tobacco/nicotine): has tried quititng Number of times tried to quit tobacco: 5 Second hand smoke exposure: Yes Alcohol intake: former Substance/Drug Use: former Date of last use: IV drug use - 2019 Caregiver/support person: No Lives independently: Yes Household members: spouse Housing: House Marital status: Life Partner Number of children: 2 Number of grandchildren: 0 Highest education level completed: High School Graduate service: No Current occupational status: unemployed Pets and animals: Yes Pets & animals: dog(s) Do you think of yourself as: Straight/Heterosexual Current gender identity: Female Sirena/Sabianism: Zoroastrianism NIH stroke score Score: Total Score: 1 Course Vital Signs: Vital signs: Vital Signs Temperature 98.0 F 10/27/23 12:17 Pulse Rate 91 10/27/23 12:17 Respiratory Rate 18 10/27/23 12:17 Blood Pressure 160/112 10/27/23 12:17 Pulse Oximetry 100 10/27/23 12:17 Oxygen Delivery Me thod Room Air 10/27/23 08:22 MDM - Neuro Symptoms/Deficit Medical Decision Making Patient is a 48-year-old female presents to ED today with complaint of numbness/paresthesias to her entire left leg as well as the left side of her face starting at 5 AM yesterday morning. She has no motor weakness. Her NIH upon arrival is 1 for the sensory complaints. Patient does have a longstanding history of chronic back pain and chronic sacroiliac pain as well as a diagnosis of lumbar stenosis with neurogenic claudication. With these diagnoses, she has never had numbness/paresthesias diffusely to the left leg. On exam she has no paresthesias in a specific nerve distribution. This, coupled with her facial numbness, makes me concerned for possible CVA versus TIA. Patient CT head here is negative. Her CTA is unremarkable. Ran case by Dr. Richard, neurologist on-call, who feels he can follow-up with patient in his office. Recommend starting her on a statin and aspirin. Patient states she used to be on a statin but no longer is taking this. Her last lipid panel reviewed. Will have case management set her up with a follow-up neurology appointment. Blood work here unremarkable apart from her significantly elevated diabetes. She is a chronically uncontrolled diabetic. She had not taken any of her morning insulin this morning. Blood sugars trending down with IV insulin and fluids given here. Chart reviewed and patient discussed with midlevel. Agree with assessment and plan. Lab Data 10/27/23 09:37 10/27/23 09:[address] 10/27/23 08:28 IMPRESSION: Negative head CT. Head/Neck CTA 10/27/23 09:14 IMPRESSION: 1. No cervical carotid artery stenosis. 2. Small amount of calcified plaque in the distal intracranial LEFT ICA. 3. No thrombus or plaque or aneurysm in the [place]. Laboratory Results WBC 7.14 10^3/uL (3.29-11.43) 10/27/23 09:37 RBC 4.87 10^6/uL (3.85-5.65) 10/27/23 09:37 Hgb 14.60 g/dL (11.27-16.99) 10/27/23 09:37 Hct 42.6 % (36-47) 10/27/23 09:37 MCV 87.5 fl (85-98) 10/27/23 09:37 MCH 30.0 pg (27-33) 10/27/23 09:37 MCHC 34.3 g/dL (30-55) 10/27/23 09:37 RDW 12.5 % (12.1-15.1) 10/27/23 09:37 Plt Count 247 10^3/cmm (157-399) 10/27/23 09:37 MPV 9.8 fL (7.4-10.4) 10/27/23 09:37 Neut % (Auto) 61.1 % 10/27/23 09:37 Lymph % (Auto) 29.8 % 10/27/23 09:37 [place] % (Auto) 6.4 % 10/27/23 09:37 Eos % (Auto) 1.3 % 10/27/23 09:37 Baso % (Auto) 1.0 % 10/27/23 09:37 Neut # (Auto) 4.36 10^3/uL (1.8-7.7) 10/27/23 09:37 Lymph # (Auto) 2.1 10^3/uL (0.8-4.8) 10/27/23 09:37 [place] # (Auto) 0.5 10^3/uL (0.2-0.9) 10/27/23 09:37 Eos # (Auto) 0.1 10^3/uL (0.0-0.8) 10/27/23 09:37 Baso # (Auto) 0.1 10^3/uL (0.0-0.1) 10/27/23 09:37 Nucleated RBC % (auto) 0 % 10/27/23 09:37 Nucleated RBCs # 0.0 /100WBC 10/27/23 09:37 PT 12.00 SECONDS (12.1-14.9) L 10/27/23 09:37 INR 0.87 (0.8-1.2) 10/27/23 09:37 APTT 20.8 SECONDS (23.9-36.7) L 10/27/23 09:37 Sodium 129 mmol/L (136-145) L 10/27/23 09:37 Potassium 4.5 mmol/L (3.5-5.1) 10/27/23 09:37 Chloride 95 mmol/L (98-107) L 10/27/23 09:37 Carbon Dioxide 23 mmol/L (22-29) 10/27/23 09:37 Anion Gap 15.5 (5-19) 10/27/23 09:37 BUN 16 mg/dL (6-20) 10/27/23 09:37 Creatinine 0.6 mg/dL (0.5-0.9) 10/27/23 09:37 GFR Calculation 105.8 mL/min (90-130) 10/27/23 09:37 Glucose 525 mg/dL (65-115) H* 10/27/23 09:37 POC Glucose 251 mg/dL (70-110) H 10/27/23 12:11 Calculated Osmolality 293 mOsm/kg (285-295) 10/27/23 09:37 Calcium 8.9 mg/dL (8.5-10.5) 10/27/23 09:37 Total Bilirubin 0.3 mg/dL (0.15-1.2) 10/27/23 09:37 AST 14 U/L (0-32) 10/27/23 09:37 ALT 21 U/L (0-33) 10/27/23 09:37 Alkaline Phosphatase 153 U/L (35-105) H 10/27/23 09:37 Total Protein 6.8 g/dL (6.6-8.7) 10/27/23 09:37 Albumin 3.8 g/dL (3.5-5.2) 10/27/23 09:37 Globulin 3.0 g/dL (1.3-4.6) 10/27/23 09:37 Urine Color Yellow (Yellow) 10/27/23 09:37 Urine Appearance Clear (CLEAR) 10/27/23 09:37 Urine pH 6 (5-7) 10/27/23 09:37 Ur Specific [place] 1.010 (1.005-1.030) 10/27/23 09:37 Urine Protein Neg (Negative) 10/27/23 09:37 Urine Glucose (UA) 4+ (Normal) H 10/27/23 09:37 Urine Ketones 1+ (Negative) H 10/27/23 09:37 Urine Blood 2+ (Negative) H 10/27/23 09:37 Urine Nitrate Negative (Negative) 10/27/23 09:37 Urine Bilirubin Neg (Negative) 10/27/23 09:37 Urine Urobilinogen Norm mg/dL (Negative) 10/27/23 09:37 Ur Leukocyte Esterase Negative (Negative) 10/27/23 09:37 Urine RBC None /hpf (0-2) 10/27/23 09:37 Urine WBC 0-4 /hpf (0-5) H 10/27/23 09:37 Ur Squamous Epith Cells 0-4 /hpf (0-5) H 10/27/23 09:37 Amorphous Sediment Not Reportable 10/27/23 09:37 Urine Bacteria 2+ /hpf (NONE) H 10/27/23 09:37 Urine Yeast 1+ /hpf H 10/27/23 09:37 Urine Opiates Screen Negative ng/mL (Negative) 10/27/23 09:37 Ur Barbiturates Screen Negative ng/mL (Negative) 10/27/23 09:37 Ur Phencyclidine Scrn Negative ng/mL (Negative) 10/27/23 09:37 Ur Amphetamines Screen Negative ng/mL (Negative) 10/27/23 09:37 U Benzodiazepines Scrn Negative ng/mL (Negative) 10/27/23 09:37 Urine Cocaine Screen Negative ng/mL (Negative) 10/27/23 09:37 U Marijuana (THC) Screen Positive ng/mL (Negative) H 10/27/23 09:37 Discharge Plan Discharge Patient Disposition: Home Clinical Impression: Facial paresthesia, Paresthesia of left leg Condition: Stable Prescriptions: New atorvastatin 10 mg tablet 10 mg PO DAILY Qty: 30 0RF No Action omeprazole 40 mg capsule,delayed release(DR/EC) 40 mg PO DAILY PRN (Reason: acid reflux) Qty: 30 5RF levothyroxine 75 mcg tablet 75 mcg PO DAILY Qty: 90 3RF pregabalin 75 mg capsule 75 mg PO BID 30 Days Qty: 60 1RF (DME) Diabetic Shoes with 3 pairs of Inserts See Rx Instructions .Route .MEDSUPPLY Qty: 1 0RF Rx Instructions: As directed by [facility] ([facility] [place]) lancets [OneTouch Delica Plus Lancet] 30 gauge misc See Rx Instructions .ROUTE .COMPLEX Qty: 100 1RF Dose Instruction: USE DIRECTED TO TEST BLOOD SUGAR ONCE DAILY. Rx Instructions: USE DIRECTED TO TEST BLOOD SUGAR ONCE DAILY. (DME) Diabetic Shoes with 3 inserts See Rx Instructions .Route .MEDSUPPLY Qty: 1 0RF Rx Instructions: As directed celecoxib 200 mg capsule 200 mg PO DAILY PRN (Reason: pain) Qty: 30 2RF hydroxyzine HCl 25 mg tablet 25 mg PO TID PRN (Reason: itching) Qty: 90 0RF (DME) blood-glucose meter [Accu-Chek Guide Glucose Meter] Misc See Rx Instructions .Route Qty: 1 0RF Rx Instructions: Check BS TID daily (DME) Dexcom G7 South Asian History Professor Misc See Rx Instructions .Route Qty: 1 0RF Rx Instructions: As directed ([facility] [place]) OneTouch Ultra Test Strip See Rx Instructions .ROUTE .COMPLEX Qty: 100 0RF Dose Instruction: USE 1 STRIP TO CHECK GLUCOSE THREE TIMES DAILY Rx Instructions: USE 1 STRIP TO CHECK GLUCOSE THREE TIMES DAILY insulin glargine [Lantus Solostar U-100 Insulin] 100 unit/mL (3 mL) insulin pen 22 unit SUBCUT QAM Qty: 15 1RF ondansetron 4 mg tablet,disintegrating 4 mg PO Q6H PRN (Reason: nausea and vomiting) Qty: 30 1RF (DME) pen needle, diabetic [1st Tier Unifine Pentips] 32 gauge x 5/32 needle See Rx Instructions .Route Qty: 50 12RF Rx Instructions: As directed, use with victoza to administer, daily. albuterol sulfate 90 mcg/actuation HFA aerosol inhaler 2 puff inhalation Q6H PRN (Reason: shortness of breath or wheezing) Qty: 8.5 0RF baclofen 10 mg tablet 10 mg PO BID PRN (Reason: muscle spasm) Qty: 60 3RF metoprolol tartrate 25 mg tablet 25 mg PO BID Qty: 60 5RF (DME) Dexcom G7 Sensor Device See Rx Instructions .ROUTE .COMPLEX Qty: 6 0RF Dose Instruction: USE DIRECTED Rx Instructions: USE DIRECTED lidocaine 5 % adhesive patch,medicated 2 patch topical DAILY PRN (Reason: pain) Qty: 15 0RF Rx Instructions: leave on most painful area for up to 12 hrs clonazepam 0.5 mg tablet 0.5 mg PO Q12H PRN (Reason: anxiety attacks) mupirocin 2 % ointment 1 applic topical BID PRN (Reason: SKIN IRRITATON) Novolog FlexPen U-100 Insulin 100 unit/mL (3 mL) insulin pen 15 - 20 unit SUBCUT TID MDD 90 Discharge Orders: Discharge ED (Routine); Ordered 10/27/23 Ordered By: Edilma Corona Referrals: Israel Otero MD [Primary Care Provider] - Patient Instructions: Paresthesia (ED) Activity Restrictions/Additional Instructions: As we discussed case management will contact you early next week to help set you up with your follow-up neurology appointment. In addition to the atorvastatin that I have prescribed to you you also need to start taking a full 324 mg aspirin daily. You need to return to the emergency department for any weakness noted to your arms or legs, facial drooping, slurred speech, trouble speaking, severe dizziness, headache, or any other concerns you may have. You may also follow-up with primary care in the meantime until we can get you to see a neurologist. Coding Level of Care Code ED Supervisor [employer] for Esperanza Hernandez
--- NOTE | 2023-10-27 09:14 | CT_ITS ---
WS: [id number] CT ANGIOGRAM CEREBRAL AND CAROTID ARTERIES HISTORY: L leg/facial numbness TECHNIQUE: CT angiogram is performed of the carotid and cerebral arteries. During arterial injection imaging is obtained from the skull vertex to the aortic arch in 1.25 mm imaging. Coronal and sagittal reformats are submitted. Additional multi planar reformats of the carotid and cerebral arteries are submitted, MIP imaging also reviewed. NASCET criteria utilized. [facility] CT [facility] at least one of these dose optimization techniques: automated exposure control; mA and/or kV adjust ment per patient size (includes targeted exams where dose is matched to clinical indication); or iter ative reconstruction. CONTRAST: Omnipaque 350; 100 mL IV. DLP: 454.65 mGy.cm COMPARISON: None available. Carotid Angiogram: Right carotid: Common carotid artery: Arises normally from the innominate artery. No significant plaque or stenosis. Internal carotid artery: No plaque or stenosis. External carotid artery: Patent. Left carotid: Common carotid artery: Arises normally from the aorta. No significant plaque or stenosis. Internal carotid artery: No plaque or stenosis. External carotid artery: Patent. Right vertebral artery: Unremarkable. Left vertebral artery: Unremarkable. Arises normally from the subclavian artery. Subclavian arteries: No stenosis or significant abnormality. Upper thorax: Normal. Thyroid gland: Small bilateral thyroid nodules. Osseous structures: Unremarkable. CEREBRAL ANGIOGRAM: Intracranial vertebral arteries: Normal with no significant atherosclerosis. Basilar artery: No significant stenosis or occlusion. No aneurysm. Intracranial Internal carotid arteries: Very tiny amount of plaque in the LEFT cervical ICA. Middle cerebral arteries: Normal. Anterior cerebral arteries and ACOM: Normal. Posterior cerebral arteries and PCOM's: Normal. Dural venous sinuses are normally enhancing. Mastoid air cells: Normal. Paranasal sinuses: Normal. Calvarium: Normal. CT/CT angio headneck* [id number] IMPRESSION: 1. No cervical carotid artery stenosis. 2. Small amount of calcified plaque in the distal intracranial LEFT ICA. 3. No thrombus or plaque or aneurysm in the [place].
[2023-10-27 09:56] LABS: Basophils # 0.1 10^3/uL (0.0-0.1); Eosinophils # 0.1 10^3/uL (0.0-0.8); Eosinophils % 1.3 %; Hematocrit 42.6 % (36-47); Lymphocytes # 2.1 10^3/uL (0.8-4.8); Lymphocytes % 29.8 %; Mean Corpuscular HGB Conc 34.3 g/dL (30-55); Mean Corpuscular Volume 87.5 fl (85-98); Mean Platelet Volume 9.8 fL (7.4-10.4); Monocytes # 0.5 10^3/uL (0.2-0.9); Monocytes % 6.4 %; Neutrophils # 4.36 10^3/uL (1.8-7.7); Neutrophils % 61.1 %; Nucleated Red Blood Cells % 0 %; Platelet Count 247 10^3/cmm (157-399); Red Blood Count 4.87 10^6/uL (3.85-5.65); Red Cell Distribution Width 12.5 % (12.1-15.1); White Blood Count 7.14 10^3/uL (3.29-11.43)
[2023-10-27 10:01] LABS: INR 0.87 (0.8-1.2); Partial Thromboplastin Time 20.8 SECONDS (23.9-36.7)
[2023-10-27 10:02] LABS: Alanine Aminotransferase 21 U/L (0-33); Albumin Level 3.8 g/dL (3.5-5.2); Alkaline Phosphatase 153 U/L (35-105); Anion Gap 15.5 (5-19); Aspartate Amino Transferase 14 U/L (0-32); Blood Urea Nitrogen 16 mg/dL (6-20); Calcium 8.9 mg/dL (8.5-10.5); Carbon Dioxide 23 mmol/L (22-29); Chloride 95 mmol/L (98-107); Creatinine Clr Calc Pharmacy 101.4255; Glomerular Filtration Rate 105.8 mL/min (90-130); Osmolality Calculated 293 mOsm/kg (285-295); Potassium 4.5 mmol/L (3.5-5.1); Sodium 129 mmol/L (136-145); Total Bilirubin 0.3 mg/dL (0.15-1.2); Total Protein 6.8 g/dL (6.6-8.7)
[2023-10-27 10:06] LABS: Glucose 525 mg/dL (65-115)
[2023-10-27] MEDS: iohexol 350 mg/mL 500 mL Btl (per mL) IV (10:10)
[2023-10-27 10:27] LABS: Glucose Point of Care 521 mg/dL (70-110)
[2023-10-27] MEDS: sodium chloride 0.9% 1,000 ML 999 ML IV (10:30)
[2023-10-27] MEDS: insulin glargine 100 units/1 mL 10 UNIT SUBCUT (10:30)
[2023-10-27] MEDS: insulin regular-human 100 units/1 mL 10 UNIT IVP ×2 (10:32→11:34)
[2023-10-27 10:49] LABS: Urine Appearance Clear (CLEAR); Urine Color Yellow (Yellow); pH Urine 6 (5-7)
[2023-10-27 10:51] LABS: Add Urine Microscopic? YES; Bilirubin Urine Neg (Negative); Blood Urine 2+ (Negative); Glucose Urine UA 4+ (Normal); Ketones Urine 1+ (Negative); Leukocyte Esterase Urine Negative (Negative); Nitrate Urine Negative (Negative); Protein Urine Neg (Negative); Urobilinogen Urine Norm (Negative)
[2023-10-27 10:56] LABS: Add Urine Culture? Yes; Amphetamines Screen Urine Negative (Negative); Bacteria Urine 2+ /hpf; Barbiturates Screen Urine Negative (Negative); Benzodiazepines Screen Urine Negative (Negative); Cocaine Screen Urine Negative (Negative); Opiate Screen Urine Negative (Negative); PCP Screen Urine Negative (Negative); Squamous Epithelial Cell Urine 0-4 /hpf (0-5); THC Screen Urine Positive (Negative); WBC Urine 0-4 /hpf (0-5)
[2023-10-27 11:13] LABS: Glucose Point of Care 431 mg/dL (70-110)
--- NOTE | 2023-10-27 12:12 | DCPLANNER ---
message sent to neuro for er f/u
[2023-10-27 12:13] LABS: Glucose Point of Care 251 mg/dL (70-110)
== END 2023-10-27 12:18 | disposition home or self-care (01) ==
PROVIDERS: Family Medicine; Emergency Provider Physician Assistant; PCP Family Medicine Adult Medicine
DX: R20.2 Paresthesia of skin (principal); Z79.4 Long term (current) use of insulin; F17.210 Nicotine dependence, cigarettes, uncomplicated; J44.9 Chronic obstructive pulmonary disease, unspecified; E11.9 Type 2 diabetes mellitus without complications; E78.5 Hyperlipidemia, unspecified
CPT/HCPCS: 36415; 36416; 70450; 70496; 70498; 80053; 80306; 81001; 82962; 85025; 85610; 85730; 87077; 87086; 87186; 93005; 96361; 96372; 96374; 96376; 99285; J1815; J7030; Q9967

== ENCOUNTER 2023-11-21 07:53 | Outpatient (CLI) | payer MEDICAID, SELFPAY ==
--- NOTE | 2023-11-21 08:00 | MR_ITS ---
WS: [id number] MRI HEAD WITHOUT CONTRAST TECHNIQUE: Sagittal T1, T2 axial, T2 axial FLAIR, axial and coronal T1 images, axial susceptibility w eighted imaging, axial diffusion weighted images, and coronal T2 images were obtained. CLINICAL INFORMATION: I63.9 - Cerebral infarction, unspecified COMPARISON: MRI [address] 10/27/2023 FINDINGS: Some images degraded by motion. Fast imaging performed. No evidence of restricted diffusion to suggest acute ischemia. Ventricular system and basal cisterns are patent. Mild small vessel changes. No significant parenchymal volume loss. Small vessel changes i n the [place]. Normal posterior fossa. Normal vascular flow voids at the skull base. No extra-axial fluid collection s. No evidence of mass or mass effect. Paranasal sinuses are well aerated. Mucosal thickening in the mastoid air cells bilaterally. No hemosiderin on the susceptibly weighted images. Normal optic chiasm and pituitary infundibulum. Temporal lobes and hippocampal formations are normal in appearance. MR/MR head wo con* [id number] IMPRESSION: 1. No evidence of restricted diffusion to suggest acute ischemia. 2. Mild small vessel changes. Small vessel changes in the [place]. No significant parenchymal volume loss. Small vessel changes are new since 2005 3. No hemosiderin on susceptibility-weighted images. 4. Mucosal thickening in the mastoid air cells bilaterally. 5. No other acute findings.
== END 2023-11-21 07:54 | disposition home or self-care (01) ==
LOC: RAD 07:53
PROVIDERS: PCP Family Medicine Adult Medicine; Visit Provider Psychiatry & Neurology Neurology
DX: I63.9 Cerebral infarction, unspecified (principal); H74.8X3 Other specified disorders of middle ear and mastoid, bilateral
CPT/HCPCS: 70551

== ENCOUNTER → 2024-02-15 07:45 | Outpatient (BNVA) | payer MEDICAID, SELFPAY | PROVIDERS: PCP Family Medicine Adult Medicine; Visit Provider Orthopaedic Surgery | DX: M48.062 Spinal stenosis, lumbar region with neurogenic claudication (principal) | CPT/HCPCS: 72100 ==

== ENCOUNTER 2024-03-11 08:00 | Outpatient (CLI) | payer MEDICAID, SELFPAY ==
--- NOTE | 2024-03-11 08:00 | MR_ITS ---
WS: [id number] MRI LUMBAR SPINE NONCONTRAST HISTORY: back pain COMPARISON: 10/06/2021, 02/15/2024 TECHNIQUE: Sagittal and axial multisequence imaging is submitted. Degenerative LEFT scoliosis of the lumbar spine is similar to the prior study. New very subtle edema within the L1 and L2 vertebral bodies along the endplates. L1-L2 retrolisthesis by 2 mm. Disc spaces are mildly narrowed and desiccated with disc bulges and osteophytes. Conus terminates normally at L1-2 disc level. L1-L2: Disc bulging with impingement upon the RIGHT subarticular recess and traversing RIGHT L2 nerve root. Moderate to severe RIGHT foraminal stenosis with disc contacting the exiting RIGHT L1 nerve ro ot. Similar to the prior study. L2-L3: Diffuse annular disc bulging with facet arthritis, RIGHT greater than LEFT. No change in the s evere RIGHT foraminal stenosis with disc contacting the RIGHT L2 and L3 nerve roots and subarticular recess encroachment also. L3-L4: Mild annular disc bulging with mild central stenosis. Disc encroachment upon the subarticular recesses resulting in mild stenosis. Severe LEFT foraminal and moderate RIGHT foraminal stenosis due to disc and facet disease. Minimal progression since the prior study. L4-L5: Diffuse annular disc bulging with facet and ligamentum flavum hypertrophy. Small central disc protrusion. Disc protrusion LEFT foramen. Moderate central with bilateral subarticular recess. Severe facet arthritis and LEFT foraminal stenosis. Mild RIGHT foraminal stenosis. LEFT hemilaminectomy def ect is noted. L5-S1: Diffuse annular disc bulging with osteophytic ridging and facet disease. Central disc protrusi on. Disc contacts the S1 nerve roots with minimal displacement, LEFT greater than RIGHT. Disc extends into the LEFT foramen with severe LEFT foraminal stenosis. Disc contacts the exiting LEFT L5 nerve r oot. Moderate RIGHT foraminal stenosis. MR/MR lumbar spine wo con* [id number] IMPRESSION: 1. Since the prior examination patient's undergone a LEFT hemilaminectomy at L 4-5. 2. Advanced degenerative disc disease with multilevel areas of stenosis and fa cet arthritis. As compared to 10/06/2021 minimal progression of stenosis. 3. New marrow edema in L1 and L2 is probably reactive due to the location. 4. L1-2: Some moderate to severe RIGHT foraminal stenosis with disc contacting the exiting RIGHT L1 nerve root. Additional contact in the subarticular RIGHT recess on the L2 nerve root. 5. L2-3: Severe RIGHT foraminal stenosis with disc contacting the RIGHT L2 and L3 nerve roots. 6. L3-4: Mild central stenosis with severe LEFT and moderate RIGHT foraminal s tenosis. 7. L4-5: Moderate central with bilateral subarticular recess encroachment. Sev ere facet arthritis. Severe LEFT foraminal stenosis. 8. L5-S1: Central disc protrusion contacting the S1 nerve roots. Severe LEFT f oraminal stenosis and moderate RIGHT foraminal stenosis.
== END 2024-03-11 08:01 | disposition home or self-care (01) ==
PROVIDERS: PCP Family Medicine Adult Medicine; Visit Provider Orthopaedic Surgery
DX: M48.062 Spinal stenosis, lumbar region with neurogenic claudication (principal); M51.360 Other intervertebral disc degeneration, lumbar region with discogenic back pain only; M47.896 Other spondylosis, lumbar region; M99.63 Osseous and subluxation stenosis of intervertebral foramina of lumbar region; M99.61 Osseous and subluxation stenosis of intervertebral foramina of cervical region; M50.20 Other cervical disc displacement, unspecified cervical region
CPT/HCPCS: 72148

== ENCOUNTER 2024-04-11 11:55 | Outpatient (CLI) | payer MEDICAID, SELFPAY ==
[2024-04-11 13:10] LABS: Estmated Average Glucose 352; Hemoglobin A1C 13.9 % (4.0-6.0)
[2024-04-11 13:15] LABS: Creatinine Urine, Random 54 mg/dL (28-217); Microalbumin Random Urine 38 ug/dL (0-20)
[2024-04-11 13:18] LABS: Microalbum Creatinine Ratio Ur 704 mg/dL (0-20)
[2024-04-11 13:20] LABS: Alanine Aminotransferase 19 U/L (0-33); Albumin Level 3.9 g/dL (3.5-5.2); Alkaline Phosphatase 106 U/L (35-105); Anion Gap 16.1 (5-19); Aspartate Amino Transferase 15 U/L (0-32); Blood Urea Nitrogen 13 mg/dL (6-20); Calcium 9.1 mg/dL (8.5-10.5); Carbon Dioxide 23 mmol/L (22-29); Chloride 95 mmol/L (98-107); Chol HDL Ratio 4.96 mg/dL (0.0-4.40); Cholesterol 273 mg/dL (0-200); Free T4 Free Thyroxine 1.33 ng/dL (0.82-1.77); Globulin 2.6 g/dL (1.3-4.6); Glomerular Filtration Rate 105.8 mL/min (90-130); Glucose 424 mg/dL (65-115); HDL Cholesterol 55 mg/dL (60-100); LDL Cholesterol Calculated 170 mg/dL (50-129); LDL HDL Ratio 3.09 RATIO (0.00-3.22); Lipase 32 U/L (13-60); Osmolality Calculated 288 mOsm/kg (285-295); Potassium 4.1 mmol/L (3.5-5.1); Sodium 130 mmol/L (136-145); Total Bilirubin 0.4 mg/dL (0.15-1.2); Total Protein 6.5 g/dL (6.6-8.7); Triglycerides 241 mg/dL (0-150)
== END 2024-04-11 11:56 | disposition home or self-care (01) ==
PROVIDERS: PCP Family Medicine Adult Medicine; Visit Provider Internal Medicine
DX: E03.9 Hypothyroidism, unspecified (principal); E78.5 Hyperlipidemia, unspecified; E11.65 Type 2 diabetes mellitus with hyperglycemia; E11.42 Type 2 diabetes mellitus with diabetic polyneuropathy
CPT/HCPCS: 80053; 80061; 82044; 83036; 83690; 84439; 84443; 84681; 86337; 86341

== ENCOUNTER 2024-04-25 19:57 | Emergency (ER) | payer MEDICAID, SELFPAY ==
[2024-04-25 20:07] VITALS: BP 159/85; PULSE 109; RESP 18; TEMP 36.6; O2SAT 98; BMI 25.7
--- NOTE | 2024-04-25 20:47 | CTR_ITS ---
PROCEDURE INFORMATION: Exam: CT Head Without Contrast Exam date and time: 04/25/2024 8:56 PM Age: 48 years old Clinical indication: Stroke-like symptoms; Left upper extremity and left lower extremity numbness/paresthesia; Additional info: Possible stroke TECHNIQUE: Imaging protocol: Computed tomography of the head without contrast. Radiation optimization: All CT scans at this facility use at least one of these dose optimization techniques: automated exposure control; mA and/or kV adjustment per patient size (includes targeted exams where dose is matched to clinical indication); or iterative reconstruction. Other technique: STROKE PROTOCOL was implemented. COMPARISON: MR head wo con* [id number] 06/28/2023 08:04 RADIATION DOSE METRICS: Total DLP (mGy-cm): 981.28 FINDINGS: Brain: There is no evidence of intracranial hemorrhage. No mass effect or midline shift. No territorial edema. Unremarkable white matter. Cerebral ventricles: The ventricles and sulci are appropriate for the patient's age. Paranasal sinuses: There are no air-fluid levels. Mastoid air cells: The visualized mastoid air cells are well aerated. Bones: Unremarkable. No acute fracture. Soft tissues: Unremarkable. CT/CT head wo con* [id number] IMPRESSION: No acute intracranial findings. ASSESSMENT: ASPECTS (Bernard Stroke Program Early CT Score) is 10.
--- NOTE | 2024-04-25 20:51 | W.ED.NEUROSD ---
HPI - Neuro Symptoms/Deficit General: Chief Complaint: Neuro Symptoms/Deficit Stated Complaint: Face and Left Side Numb Time Seen by Provider: 04/25/24 20:46 History of Present Illness: 48-year-old female with a history of poorly controlled diabetes, COPD and history of polysubstance abuse who presents to the emergency room with intermittent left-sided tingling and numbness. She says it starts in her face and her tongue and then she will have numbness that is in her arm and then her legs. She also has had a generalized headache. She has had episodes 3 times a day. They only last briefly. Not have resolved. She is symptom-free at the moment Related Data Home Medications Medication Instructions Recorded Confirmed mupirocin 2 % topical ointment 1 applic topical BID PRN SKIN 10/27/23 04/10/24 IRRITATON aspirin 325 mg tablet 325 mg PO DAILY 11/15/23 04/10/24 Previous Rx's Medication Instructions Recorded Diabetic Shoes with 3 inserts #1 ea 05/05/22 lancets 30 gauge (OneTouch Delica #100 ea 05/05/22 Plus Lancet) blood-glucose meter (Accu-Chek #1 ea 11/08/22 Guide Glucose Meter) blood sugar diagnostic (OneTouch #100 ea 03/28/23 Ultra Test strips) insulin glargine 100 unit/mL (3 22 unit (0.22 mL) SUBCUT QAM #15 mL 06/26/23 mL) subcutaneous pen (Lantus Solostar U-100 Insulin) pen needle, diabetic 32 gauge x #50 ea 06/27/23 (1st Tier Unifine Pentips) albuterol sulfate 90 mcg/actuation 2 puff inhalation Q6H PRN 07/26/23 aerosol inhaler shortness of breath or wheezing #8.5 grams levothyroxine 75 mcg tablet 75 mcg PO DAILY low thyroid #90 08/11/23 tabs hydroxyzine HCl 25 mg tablet 25 mg PO TID PRN itching #90 tabs 10/31/23 omeprazole 40 mg capsule,delayed 40 mg PO DAILY PRN acid reflux #30 12/12/23 release caps blood-glucose meter,continuous #1 ea 02/05/24 (FreeStyle Janelle 3 [place]) blood-glucose sensor (FreeStyle #6 ea 02/05/24 Janelle 3 Sensor device) Diabetic Shoes with custom insoles #1 ea 02/20/24 pregabalin 75 mg capsule 75 mg PO BID #60 caps 02/28/24 metoprolol tartrate 25 mg tablet 25 mg PO BID tachycardia #60 tabs 03/07/24 insulin aspart U-100 100 unit/mL See Rx Instructions .Route 04/03/24 (3 mL) subcutaneous pen .COMPLEX #15 mL atorvastatin 40 mg tablet 40 mg PO DAILY #30 tabs 04/25/24 blood-glucose sensor (FreeStyle #6 ea 04/25/24 Janelle 3 Plus Sensor device) clopidogrel 75 mg tablet (Plavix) 75 mg PO DAILY #30 tabs 04/25/24 ondansetron 4 mg disintegrating 4 mg PO Q6H PRN nausea and 04/25/24 tablet vomiting #30 tabs Allergies Allergy/AdvReac Type Severity Reaction Status Date / Time amoxicillin Allergy Unknown Verified 04/10/24 09:31 Review of Systems Narrative: Constitutional symptoms: Negative except as documented in HPI. Skin symptoms: Negative except as documented in HPI. Eye symptoms: Negative except as documented in HPI. ENMT symptoms: Negative except as documented in HPI. Respiratory symptoms: Negative except as documented in HPI. Cardiovascular symptoms: Negative except as documented in HPI. Gastrointestinal symptoms: Negative except as documented in HPI. Genitourinary symptoms: Negative except as documented in HPI. Musculoskeletal symptoms: Negative except as documented in HPI. Neurologic symptoms: Negative except as documented in HPI. Psychiatric symptoms: Negative except as documented in HPI. Endocrine symptoms: Negative except as documented in HPI. [facility] ED PFSH: Medical History Supraventricular tachycardia (~04/2020) identified during ED visit 04/2020, treated with 6mg adenosine with conversion to sinus Generalized anxiety disorder with panic attacks Smokers' cough Acute pancreatitis Unintentional weight loss of more than 10% body weight within 6 months Diabetic macular edema Diabetic retinopathy, nonproliferative, severe Polysubstance (including opioids) dependence w/o physiol dependence smoker, severe cannabis, Opioid, Methamphetamines Insomnia Smoker COPD (chronic obstructive pulmonary disease) with emphysema Scoliosis associated with other condition Lumbar disc disease with radiculopathy Hemochromatosis carrier Diabetes type 2, uncontrolled PTSD (post-traumatic stress disorder) History of rheumatoid arthritis Osteoarthritis involving multiple joints on both sides of body GERD (gastroesophageal reflux disease) JOSE (obstructive sleep apnea) per sleep study 2010, CPAP of 13 recommended at that time, no longer with machine Dyslipidemia Hypothyroidism Surgical History Hx of cataract surgery bilateral eye History of umbilical hernia repair (~2011) History of incision and drainage (~2013) right upper extremity and R lower extremity History of tubal ligation History of hysterectomy (~2011) also Kimberly urethral plication Family History Father Diabetes Mother Diabetes Grandfather Postsurgical cardiac pacemaker in situ Denies family history of Stroke Social History Smoking and tobacco/nicotine status: never used tobacco/nicotine Quit status (tobacco/nicotine): has tried quititng Number of times tried to quit tobacco: 5 Second hand smoke exposure: Yes Alcohol intake: former Substance/Drug Use: former Date of last use: IV drug use - 2019 Caregiver/support person: No Lives independently: Yes Household members: spouse Housing: House Marital status: Life Partner Number of children: 2 Number of grandchildren: 0 Highest education level completed: High School Graduate service: No Current occupational status: unemployed Pets and animals: Yes Pets & animals: dog(s) Do you think of yourself as: Straight/Heterosexual Current gender identity: Female Sirena/Taoism: Orthodoxy Physical Exam Narrative: EXAM NARRATIVE: General: Alert, no acute distress. Skin: Warm, dry. Head: Normocephalic, atraumatic. Neck: Supple, trachea midline. Eye: Extraocular movements are intact. Ears, nose, mouth and throat: mucosa moist. Cardiovascular: Regular, Normal peripheral perfusion. Respiratory: Lungs are clear to auscultation, respirations are non-labored, breath sounds are equal, Symmetrical chest wall expansion. Gastrointestinal: Soft, Nontender, Non distended Musculoskeletal: Normal ROM, no deformity. Neurological: Alert and oriented, No focal neurological deficit observed. Psychiatric: Cooperative, appropriate mood & affect. Course Vital Signs: Vital signs: Vital Signs Temperature 98 F 04/25/24 20:07 Pulse Rate 90 04/25/24 21:03 Respiratory Rate 22 H 04/25/24 21:03 Blood Pressure 140/89 04/25/24 21:03 Pulse Oximetry 94 04/25/24 21:03 Oxygen Delivery Me thod Room Air 04/25/24 21:03 MDM - Neuro Symptoms/Deficit Medical Decision Making Medical decision making: Differential diagnosis for patient with focal neurologic deficit(s) includes but not limited to and based on the above HPI, review of systems and physical exam: ischemic stroke, hemorrhagic stroke and embolic stroke secondary to atrial fibrillation), TIA, Werner's palsey, metabolic encephalopathy with previous stroke. Orders placed to evaluate differential diagnosis based on the above differential, HPI and physical exam CT head: No acute intracranial process. no intracranial hemorrhage, no evidence of infarct. no evidence of acute fracture.This was reviewed and interpreted by myself the ER physician. Lab Review: Laboratory results were reviewed and interpreted by myself the emergency room physician. Lab work is unremarkable Consultation: I spoke with Dr. Richard who is on-call for the hospitalist service. Symptoms are now gone. Review of the chart he has seen her for this exact same complaint in the past. About 6 months ago. He recommends stopping the aspirin adding Plavix and atorvastatin and follow-up on Monday. I reviewed the patient's medical record. Reexamination: Patient remained stable. No increased work of breathing. No altered mental status. No focal motor deficits. Assessment and plan: Paresthesia - Discharged home - Discussed plan with patient. Answered any questions. - Evaluation and treatment of this problem were appropriate in the emergency setting. Lab Data 04/25/24 20:53 04/25/24 20:[address] 04/25/24 20:47 IMPRESSION: No acute intracranial findings. ASSESSMENT: ASPECTS ([place] Stroke Program Early CT Score) is 10. ADDENDUM: 04/25/242116 THIS REPORT CONTAINS FINDINGS THAT MAY BE CRITICAL TO PATIENT CARE. The findings were verbally communicated via telephone conference with DONITA NEWBERRY at 9:16 PM [employer]TER on 04/25/2024. The findings were acknowledged and understood. Laboratory Results WBC 9.00 10^3/uL (3.29-11.43) 04/25/24 20:53 RBC 5.04 10^6/uL (3.85-5.65) 04/25/24 20:53 Hgb 15.00 g/dL (11.27-16.99) 04/25/24 20:53 Hct 43.1 % (36-47) 04/25/24 20:53 MCV 85.5 fl (85-98) 04/25/24 20:53 MCH 29.8 pg (27-33) 04/25/24 20:53 MCHC 34.8 g/dL (30-55) 04/25/24 20:53 RDW 12.0 % (12.1-15.1) L 04/25/24 20:53 Plt Count 276 10^3/cmm (157-399) 04/25/24 20:53 MPV 9.3 fL (7.4-10.4) 04/25/24 20:53 Neut % (Auto) 62.0 % 04/25/24 20:53 Lymph % (Auto) 25.7 % 04/25/24 20:53 [place] % (Auto) 10.0 % 04/25/24 20:53 Eos % (Auto) 1.3 % 04/25/24 20:53 Baso % (Auto) 0.8 % 04/25/24 20:53 Neut # (Auto) 5.58 10^3/uL (1.8-7.7) 04/25/24 20:53 Lymph # (Auto) 2.3 10^3/uL (0.8-4.8) 04/25/24 20:53 [place] # (Auto) 0.9 10^3/uL (0.2-0.9) 04/25/24 20:53 Eos # (Auto) 0.1 10^3/uL (0.0-0.8) 04/25/24 20:53 Baso # (Auto) 0.1 10^3/uL (0.0-0.1) 04/25/24 20:53 Nucleated RBC % (auto) 0 % 04/25/24 20:53 Nucleated RBCs # 0.0 /100WBC 04/25/24 20:53 PT 12.10 SECONDS (12.1-14.9) 04/25/24 20:53 INR 0.87 (0.8-1.2) 04/25/24 20:53 APTT 24.0 SECONDS (23.9-36.7) 04/25/24 20:53 Sodium 128 mmol/L (136-145) L 04/25/24 20:53 Potassium 4.3 mmol/L (3.5-5.1) 04/25/24 20:53 Chloride 92 mmol/L (98-107) L 04/25/24 20:53 Carbon Dioxide 24 mmol/L (22-29) 04/25/24 20:53 Anion Gap 16.3 (5-19) 04/25/24 20:53 BUN 22 mg/dL (6-20) H 04/25/24 20:53 Creatinine 0.9 mg/dL (0.5-0.9) 04/25/24 20:53 GFR Calculation 66.3 mL/min (90-130) L 04/25/24 20:53 Glucose 487 mg/dL (65-115) H 04/25/24 20:53 Calculated Osmolality 291 mOsm/kg (285-295) 04/25/24 20:53 Calcium 9.2 mg/dL (8.5-10.5) 04/25/24 20:53 Total Bilirubin 0.3 mg/dL (0.15-1.2) 04/25/24 20:53 AST 13 U/L (0-32) 04/25/24 20:53 ALT 17 U/L (0-33) 04/25/24 20:53 Alkaline Phosphatase 102 U/L (35-105) 04/25/24 20:53 Total Protein 7.0 g/dL (6.6-8.7) 04/25/24 20:53 Albumin 4.1 g/dL (3.5-5.2) 04/25/24 20:53 Globulin 2.9 g/dL (1.3-4.6) 04/25/24 20:53 All radiology interpretation(s) finalized by discharge Discharge Plan Discharge Patient Disposition: Home Clinical Impression: Paresthesia Condition: Stable Prescriptions: New atorvastatin 40 mg tablet 40 mg PO DAILY Qty: 30 0RF clopidogrel [Plavix] 75 mg tablet 75 mg PO DAILY Qty: 30 0RF No Action levothyroxine 75 mcg tablet 75 mcg PO DAILY Qty: 90 3RF aspirin 325 mg tablet 325 mg PO DAILY (DME) lancets [OneTouch Delica Plus Lancet] 30 gauge misc See Rx Instructions .ROUTE .COMPLEX Qty: 100 1RF Dose Instruction: USE DIRECTED TO TEST BLOOD SUGAR ONCE DAILY. Rx Instructions: USE DIRECTED TO TEST BLOOD SUGAR ONCE DAILY. (DME) Diabetic Shoes with 3 inserts See Rx Instructions .Route .MEDSUPPLY Qty: 1 0RF Rx Instructions: As directed ([facility] [place] Diabetic Shoes with custom insoles See Rx Instructions .Route .MEDSUPPLY Qty: 1 0RF Rx Instructions: As directed by THE SHOSalena MEENAKSHI pregabalin 75 mg capsule 75 mg PO BID Qty: 60 5RF (DME) blood-glucose meter [Accu-Chek Guide Glucose Meter] [facility] [place] See Rx Instructions .Route Qty: 1 0RF Rx Instructions: Check BS TID daily (DME) OneTouch Ultra Test Strip See Rx Instructions .ROUTE .COMPLEX Qty: 100 0RF Dose Instruction: USE 1 STRIP TO CHECK GLUCOSE THREE TIMES DAILY Rx Instructions: USE 1 STRIP TO CHECK GLUCOSE THREE TIMES DAILY insulin glargine [Lantus Solostar U-100 Insulin] 100 unit/mL (3 mL) insulin pen 22 unit SUBCUT QAM Qty: 15 1RF ([facility] [place] pen needle, diabetic [1st Tier Unifine Pentips] 32 gauge x 5/32 needle See Rx Instructions .Route Qty: 50 12RF Rx Instructions: As directed, use with victoza to administer, daily. albuterol sulfate 90 mcg/actuation HFA aerosol inhaler 2 puff inhalation Q6H PRN (Reason: shortness of breath or wheezing) Qty: 8.5 0RF hydroxyzine HCl 25 mg tablet 25 mg PO TID PRN (Reason: itching) Qty: 90 0RF omeprazole 40 mg capsule,delayed release(DR/EC) 40 mg PO DAILY PRN (Reason: acid reflux) Qty: 30 5RF ([facility] [place]) FreeStyle Janelle 3 [place] [facility] [place] See Rx Instructions .Route Qty: 1 0RF Rx Instructions: As directed ([facility] [place]) FreeStyle Janelle 3 Sensor Device See Rx Instructions .Route Qty: 6 1RF Rx Instructions: change sensor every 14 days metoprolol tartrate 25 mg tablet 25 mg PO BID Qty: 60 5RF insulin aspart U-100 100 unit/mL (3 mL) insulin pen See Rx Instructions .ROUTE .COMPLEX Qty: 15 0RF Dose Instruction: INJECT 5 UNITS SUB-Q THREE TIMES DAILY MAXIUM DAILY DOSE IS 45 UNITS PER SLIDING SCALE Rx Instructions: INJECT 5 UNITS SUB-Q THREE TIMES DAILY MAXIUM DAILY DOSE IS 45 UNITS PER SLIDING SCALE ondansetron 4 mg tablet,disintegrating 4 mg PO Q6H PRN (Reason: nausea and vomiting) Qty: 30 1RF (DME) FreeStyle Janelle 3 Plus Sensor Device See Rx Instructions .Route Qty: 6 0RF Rx Instructions: As directed mupirocin 2 % ointment 1 applic topical BID PRN (Reason: SKIN IRRITATON) Discharge Orders: Discharge ED (Routine); Ordered 04/25/24 Ordered By: Donita Newberry Referrals: Remington Richard MD [Physician] - 04/29/24 8:00 am (Please go to Dr. Richard's clinic on Monday at 8 AM) Israel Otero MD [Primary Care Provider] - Discharge Diet: Usual diet Discharge Activity: Resume usual activity Patient Instructions: Paresthesia (ED), Opioid Safety, Pain Management Activity Restrictions/Additional Instructions: Discontinue your daily aspirin when you start Plavix and the statin. Thank you for choosing [facility] for your healthcare needs today. Please realize this is an emergency room and that we are providing you with a medical screening exam and this may not be complete and all inclusive of all the testing and or work up that you may need to determine your ailment or severity of your illness. You have been screened and evaluated and felt safe for discharge. Health conditions do change or evolve sometimes and as such it is important that you follow up with your Primary Doctor to be re checked, 3-5 days is a general good time frame for follow up. You are always welcome to return to the ED for re assessment if your symptoms are worsening or you have new concerns Coding Level of Care Code ED Command Post Superintendent for Esperanza Hernandez
[2024-04-25 20:56] LABS: Basophils # 0.1 10^3/uL (0.0-0.1); Basophils % 0.8 %; Eosinophils # 0.1 10^3/uL (0.0-0.8); Eosinophils % 1.3 %; Hematocrit 43.1 % (36-47); Lymphocytes # 2.3 10^3/uL (0.8-4.8); Lymphocytes % 25.7 %; Mean Corpuscular HGB Conc 34.8 g/dL (30-55); Mean Corpuscular Hemoglobin 29.8 pg (27-33); Mean Corpuscular Volume 85.5 fl (85-98); Mean Platelet Volume 9.3 fL (7.4-10.4); Monocytes # 0.9 10^3/uL (0.2-0.9); Neutrophils # 5.58 10^3/uL (1.8-7.7); Nucleated Red Blood Cells % 0 %; Platelet Count 276 10^3/cmm (157-399); Red Blood Count 5.04 10^6/uL (3.85-5.65)
--- NOTE | 2024-04-25 21:02 | ECG_ITS ---
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 Measurements Intervals [place] Rate: 90 P: 59 ID: [id number] QRS: 12 QRSD: 73 T: 36 QT: 346 QTc: 424 Interpretive Statements SINUS RHYTHM LOW QRS VOLTAGE IN PRECORDIAL LEADS [QRS DEFLECTION < 1.0 mV IN CHEST LEADS] SEPTAL MYOCARDIAL INFARCTION , OF INDETERMINATE AGE [40+ ms Q WAVE IN V1/V2] Compared to ECG 10/27/2023 10:05:33 Low QRS voltage now present Myocardial infarct finding still present Electronically Signed On 04-26-2024 16:53:13 STAKEHOLDER MANAGER by Ba Cyr M.D. [email or web address]
[2024-04-25 21:03] VITALS: BP 140/89; PULSE 90; RESP 22; O2SAT 94
[2024-04-25 21:16] LABS: Alanine Aminotransferase 17 U/L (0-33); Albumin Level 4.1 g/dL (3.5-5.2); Alkaline Phosphatase 102 U/L (35-105); Anion Gap 16.3 (5-19); Aspartate Amino Transferase 13 U/L (0-32); Blood Urea Nitrogen 22 mg/dL (6-20); Calcium 9.2 mg/dL (8.5-10.5); Carbon Dioxide 24 mmol/L (22-29); Chloride 92 mmol/L (98-107); Creatinine Clr Calc Pharmacy 68.1752; Globulin 2.9 g/dL (1.3-4.6); Glomerular Filtration Rate 66.3 mL/min (90-130); Glucose 487 mg/dL (65-115); Osmolality Calculated 291 mOsm/kg (285-295); Potassium 4.3 mmol/L (3.5-5.1); Sodium 128 mmol/L (136-145); Total Bilirubin 0.3 mg/dL (0.15-1.2)
[2024-04-25 21:22] LABS: INR 0.87 (0.8-1.2)
[2024-04-25 21:26] VITALS: BP 120/86; PULSE 88; RESP 25; O2SAT 95
[2024-04-25 22:11] VITALS: BP 140/86; PULSE 94; RESP 23; O2SAT 97
== END 2024-04-25 22:13 | disposition home or self-care (01) ==
PROVIDERS: Emergency Provider Emergency Medicine; PCP Family Medicine Adult Medicine
DX: R20.2 Paresthesia of skin (principal); Z79.82 Long term (current) use of aspirin; Z79.4 Long term (current) use of insulin; E11.3419 Type 2 diabetes mellitus with severe nonproliferative diabetic retinopathy with macular edema, unspecified eye; J44.9 Chronic obstructive pulmonary disease, unspecified; E78.5 Hyperlipidemia, unspecified
CPT/HCPCS: 70450; 80053; 85025; 85610; 85730; 93005; 99284

== ENCOUNTER 2024-05-06 11:15 | Inpatient (IN) | payer MEDICAID, SELFPAY ==
[2024-05-06] VITALS (9 sets, daily range): BP systolic 142–159; BP diastolic 80–120; PULSE 85–95; RESP 16–18; TEMP 36.5–36.9; O2SAT 93–99; BMI 25.7
--- NOTE | 2024-05-06 11:35 | ECG_ITS ---
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 Measurements Intervals [place] Rate: 91 P: 63 [place]: 140 QRS: 32 QRSD: 77 T: 16 QT: 344 QTc: 425 Interpretive Statements SINUS RHYTHM Compared to ECG 04/25/2024 21:02:13 Myocardial infarct finding no longer present Electronically Signed On 05-06-2024 19:23:54 ARMHOLE FELLER HANDSTITCHING MACHINE by Ba Cyr M.D. [email or web address]
[2024-05-06 14:27] LABS: Basophils # 0.1 10^3/uL (0.0-0.1); Basophils % 0.8 %; Eosinophils # 0.1 10^3/uL (0.0-0.8); Hematocrit 44.2 % (36-47); Lymphocytes # 2.9 10^3/uL (0.8-4.8); Lymphocytes % 23.6 %; Mean Corpuscular HGB Conc 34.6 g/dL (30-55); Mean Corpuscular Hemoglobin 29.7 pg (27-33); Mean Corpuscular Volume 85.8 fl (85-98); Mean Platelet Volume 9.2 fL (7.4-10.4); Monocytes # 0.6 10^3/uL (0.2-0.9); Monocytes % 5.2 %; Neutrophils # 8.48 10^3/uL (1.8-7.7); Neutrophils % 68.8 %; Nucleated Red Blood Cells % 0 %; Platelet Count 322 10^3/cmm (157-399); Red Blood Count 5.15 10^6/uL (3.85-5.65); White Blood Count 12.31 10^3/uL (3.29-11.43)
--- NOTE | 2024-05-06 14:43 | ED_ITS ---
HPI - General Adult 2 General: Chief complaint: General Medical Stated complaint: left side numb chest pains Time Seen by Provider: 05/06/24 14:02 History of Present Illness: 48-year-old female presents emergency ro om complaining of left-sided numbness and weakness that began this morning when she woke up. She has had this intermittently for some time she had been seen here previously for it was started on aspirin Plavix and atorvastatin but she only took the Plavix. She states the left-sided facial numbness left arm and leg numbness has persisted today. Her last known well was around 9:00 last night when she went to bed. She denies any chest pain or abdominal pain. Associated symptoms: Deny chest pain, dyspnea or rash Related Data Home Medications Medication Instructions Recorded Confirmed aspirin 325 mg tablet 325 mg PO DAILY 11/15/23 05/06/24 celecoxib 100 mg capsule (Celebrex) 100 mg PO DAILY 04/26/24 05/06/24 insulin aspart U-100 100 unit/mL See Rx Instructions .Route .COMPLEX 05/06/24 05/06/24 (3 mL) subcutaneous pen (Novolog FlexPen U-100 Insulin aspart) Previous Rx's Medication Instructions Recorded Diabetic Shoes with 3 inserts #1 ea 05/05/22 lancets 30 gauge (OneTouch Delica #100 ea 05/05/22 Plus Lancet) blood-glucose meter (Accu-Chek #1 ea 11/08/22 Guide Glucose Meter) blood sugar diagnostic (OneTouch #100 ea 03/28/23 Ultra Test strips) insulin glargine 100 unit/mL (3 22 unit (0.22 mL) SUBCUT QAM #15 mL 06/26/23 mL) subcutaneous pen (Lantus Solostar U-100 Insulin) pen needle, diabetic 32 gauge x #50 ea 06/27/23 (1st Tier Unifine Pentips) albuterol sulfate 90 mcg/actuation 2 puff inhalation Q6H PRN 07/26/23 aerosol inhaler shortness of breath or wheezing #8.5 grams levothyroxine 75 mcg tablet 75 mcg PO DAILY low thyroid #90 08/11/23 tabs hydroxyzine HCl 25 mg tablet 25 mg PO TID PRN itching #90 tabs 10/31/23 omeprazole 40 mg capsule,delayed 40 mg PO DAILY PRN acid reflux #30 12/12/23 release caps blood-glucose meter,continuous #1 ea 02/05/24 (FreeStyle Janelle 3 [place]) blood-glucose sensor (FreeStyle #6 ea 02/05/24 Janelle 3 Sensor device) Diabetic Shoes with custom insoles #1 ea 02/20/24 metoprolol tartrate 25 mg tablet 25 mg PO BID tachycardia #60 tabs 03/07/24 atorvastatin 40 mg tablet 40 mg PO DAILY #30 tabs 04/25/24 blood-glucose sensor (FreeStyle #6 ea 04/25/24 Janelle 3 Plus Sensor device) clopidogrel 75 mg tablet (Plavix) 75 mg PO DAILY #30 tabs 04/25/24 cetirizine 10 mg tablet (Zyrtec) 10 mg PO DAILY PRN allergy 04/26/24 symptoms #60 tabs Allergies Allergy/AdvReac Type Severity Reaction Status Date / Time amoxicillin Allergy Unknown Verified 04/26/24 15:47 Review of Systems 2 Const: Denies: fever(s) or chills Card: Denies: chest pain Resp: Denies: dyspnea GI: Denies: abdominal pain : Denies: dysuria, urinary frequency or urinary urgency Musc: Denies: neck pain or back pain Skin/Breast: Denies: rash PFSH ED 2 PFSH: Medical History Supraventricular tachycardia (~04/2020) identified during ED visit 04/2020, treated with 6mg adenosine with conversion to sinus Generalized anxiety disorder with panic attacks Smokers' cough Acute pancreatitis Unintentional weight loss of more than 10% body weight within 6 months Diabetic macular edema Diabetic retinopathy, nonproliferative, severe Polysubstance (including opioids) dependence w/o physiol dependence smoker, severe cannabis, Opioid, Methamphetamines Insomnia Smoker COPD (chronic obstructive pulmonary disease) with emphysema Scoliosis associated with other condition Lumbar disc disease with radiculopathy Hemochromatosis carrier Diabetes type 2, uncontrolled PTSD (post-traumatic stress disorder) History of rheumatoid arthritis Osteoarthritis involving multiple joints on both sides of body GERD (gastroesophageal reflux disease) JOSE (obstructive sleep apnea) per sleep study 2010, CPAP of 13 recommended at that time, no longer with machine Dyslipidemia Hypothyroidism Surgical History Hx of cataract surgery bilateral eye History of umbilical hernia repair (~2011) History of incision and drainage (~2013) right upper extremity and R lower extremity History of tubal ligation History of hysterectomy (~2011) also Kimberly urethral plication Family History Father Diabetes Mother Diabetes Grandfather Postsurgical cardiac pacemaker in situ Denies family history of Stroke Social History Smoking and tobacco/nicotine status: current every day tobacco/nicotine user cigarettes Packs smoked per day: 0.5 Years cigarettes smoked: 33 Quit status (tobacco/nicotine): has tried quititng Number of times tried to quit tobacco: 5 Second hand smoke exposure: Yes Alcohol intake: former Substance/Drug Use: former Date of last use: IV drug use - 2019 Caregiver/support person: No Lives independently: Yes Household members: spouse Housing: House Marital status: Life Partner Number of children: 2 Number of grandchildren: 0 Highest education level completed: High School Graduate service: No Current occupational status: unemployed Pets and animals: Yes Pets & animals: dog(s) Do you think of yourself as: Straight/Heterosexual Current gender identity: Female Sirena/Pentecostal: Ep[employer] Physical Exam 2 Const: GENERAL APPEARANCE: cooperative ORIENTATION/CONSCIOUSNESS: Yes awake, Yes oriented to person, Yes oriented to place and Yes oriented to time HENMT: COMMON NORMALS: normocephalic, atraumatic and hearing grossly normal bilaterally HEAD & SCALP: normocephalic and atraumatic Resp: COMMON NORMALS: normal respiratory effort, No retractions, No use of accessory muscles and clear to auscultation bilaterally AUSCULTATION: clear to auscultation bilaterally Cardio: COMMON NORMALS: regular rate, regular rhythm and No murmurs present (Cardio) RATE: regular rate RHYTHM: regular rhythm GI: COMMON NORMALS: Soft to palpation and No hepatosplenomegaly present A USCULTATION: Yes normoactive bowel sounds PALPATION: Yes Soft to palpation, No Tenderness to palpation present (GI), No Guarding due to palpation present (GI) and Yes No hepatosplenomegaly present Extremity: COMMON NORMALS: normal to inspection, capillary refill normal, no clubbing, cyanosis or edema, no calf tenderness and no pedal edema Neuro: SENSORIUM/ORIENTATION: Yes oriented to person, Yes oriented to place and Yes oriented to time Skin: COMMON NORMALS: no rashes or lesions noted GENERAL SKIN EXAM: no rashes or lesions noted Course 2 Vital Signs: Vital signs: Vital Signs Temperature 97.7 F 05/06/24 11:29 Pulse Rate 85 05/06/24 15:08 Respiratory Rate 18 05/06/24 11:29 Blood Pressure 159/97 05/06/24 15:08 Pulse Oximetry 93 05/06/24 15:08 Oxygen Delivery Me thod Room Air 05/06/24 15:08 MDM - General Adult Medical Decision Making Just prior to going in to see the patient we lost power in the department we switched over to generator power. Stroke alert was called. At this time time she is not a candidate for TNKase due to being outside of the window of opportunity for treatment. Due to her stroke score she is not a candidate for embolectomy. She is also far enough into her the process from her last known well that we could not transfer her in a timely enough fashion for her to be an embolectomy candidate. She does not have a headache she is not excessively hypertensive or bradycardic, no nausea or vomiting or dizziness. I do not believe she has an intracranial bleed at this time she has had these episodes before and has been worked up with thought to be TIAs and recovered in short periods of time. CT will be available within the next 30 to 40 minutes. If we do attempt to make transfer it would actually further delay her getting the initial CT when taken into account the amount of time that we will take to get transportation here and get her transported to the nearest facility. I reviewed this with Dr. Bowers who is her stroke care administrative medical director she concurs with the current plan. She agrees with the reasoning and not transferring at this time. CT head negative for acute stroke no significant changes patient reports her symptoms are beginning to improve. Discussed with hospitalist will admit for acute CVA. Medical Records I reviewed the patient's medical records. Lab Data I reviewed the patient's lab results. 05/06/24 14:55 05/06/24 14:[address] 05/06/24 14:54 IMPRESSION: No acute intracranial abnormality. ASSESSMENT: ASPECTS ([facility] Stroke Program Early CT Score) is 10. ADDENDUM: 05/06/24 5842 Addendum: THIS REPORT CONTAINS FINDINGS THAT MAY BE CRITICAL TO PATIENT CARE. The findings were verbally communicated via telephone conference with MONE CARDENAS at 5:08 PM DESIGN VERIFICATION ENGINEER on 05/06/2024. The findings were acknowledged and understood. Laboratory Results WBC 11.48 10^3/uL (3.29-11.43) H 05/06/24 14:55 RBC 5.29 10^6/uL (3.85-5.65) 05/06/24 14:55 Hgb 15.60 g/dL (11.27-16.99) 05/06/24 14:55 Hct 44.3 % (36-47) 05/06/24 14:55 MCV 83.7 fl (85-98) L 05/06/24 14:55 MCH 29.5 pg (27-33) 05/06/24 14:55 MCHC 35.2 g/dL (30-55) 05/06/24 14:55 RDW 12.0 % (12.1-15.1) L 05/06/24 14:55 Plt Count 331 10^3/cmm (157-399) 05/06/24 14:55 MPV 9.2 fL (7.4-10.4) 05/06/24 14:55 Neut % (Auto) 70.3 % 05/06/24 14:55 Lymph % (Auto) 22.8 % 05/06/24 14:55 [place] % (Auto) 4.7 % 05/06/24 14:55 Eos % (Auto) 1.1 % 05/06/24 14:55 Baso % (Auto) 0.6 % 05/06/24 14:55 Neut # (Auto) 8.06 10^3/uL (1.8-7.7) H 05/06/24 14:55 Lymph # (Auto) 2.6 10^3/uL (0.8-4.8) 05/06/24 14:55 [place] # (Auto) 0.5 10^3/uL (0.2-0.9) 05/06/24 14:55 Eos # (Auto) 0.1 10^3/uL (0.0-0.8) 05/06/24 14:55 Baso # (Auto) 0.1 10^3/uL (0.0-0.1) 05/06/24 14:55 Nucleated RBC % (auto) 0 % 05/06/24 14:55 Nucleated RBCs # 0.0 /100WBC 05/06/24 14:55 PT 12.40 SECONDS (12.1-14.9) 05/06/24 14:55 INR 0.89 (0.8-1.2) 05/06/24 14:55 APTT 22.2 SECONDS (23.9-36.7) L 05/06/24 14:55 Sodium 129 mmol/L (136-145) L 05/06/24 14:15 Potassium 4.3 mmol/L (3.5-5.1) 05/06/24 14:15 Chloride 92 mmol/L (98-107) L 05/06/24 14:15 Carbon Dioxide 23 mmol/L (22-29) 05/06/24 14:15 Anion Gap 18.3 (5-19) 05/06/24 14:15 BUN 13 mg/dL (6-20) 05/06/24 14:15 Creatinine 0.5 mg/dL (0.5-0.9) 05/06/24 14:15 GFR Calculation 130.6 mL/min (90-130) H 05/06/24 14:15 Glucose 371 mg/dL (65-115) H 05/06/24 14:15 Calculated Osmolality 283 mOsm/kg (285-295) L 05/06/24 14:15 Calcium 9.0 mg/dL (8.5-10.5) 05/06/24 14:15 Total Bilirubin 0.4 mg/dL (0.15-1.2) 05/06/24 14:15 AST 15 U/L (0-32) 05/06/24 14:15 ALT 15 U/L (0-33) 05/06/24 14:15 Alkaline Phosphatase 101 U/L (35-105) 05/06/24 14:15 Total Protein 6.7 g/dL (6.6-8.7) 05/06/24 14:15 Albumin 3.9 g/dL (3.5-5.2) 05/06/24 14:15 Globulin 2.8 g/dL (1.3-4.6) 05/06/24 14:15 Urine Color Yellow (Yellow) 05/06/24 15:45 Urine Appearance Clear (CLEAR) 05/06/24 15:45 Urine pH 6.0 (5-7) 05/06/24 15:45 Ur Specific [place] 1.043 (1.005-1.030) H 05/06/24 15:45 Urine Protein 2+ (Negative) A 05/06/24 15:45 Urine Glucose (UA) 3+ (Normal) H 05/06/24 15:45 Urine Ketones 2+ (Negative) H 05/06/24 15:45 Urine Blood 1+ (Negative) A 05/06/24 15:45 Urine Nitrate Negative (Negative) 05/06/24 15:45 Urine Bilirubin Negative (Negative) 05/06/24 15:45 Urine Urobilinogen 0.2 mg/dL (Negative) 05/06/24 15:45 Ur Leukocyte Esterase Negative (Negative) 05/06/24 15:45 Urine RBC 6-10 /hpf (0-2) 05/06/24 15:45 Urine WBC 21-50 /hpf (0-5) H 05/06/24 15:45 Ur Squamous Epith Cells 6-10 /hpf (0-5) 05/06/24 15:45 Amorphous Sediment Not Reportable 05/06/24 15:45 Urine Bacteria Trace /hpf (NONE) 05/06/24 15:45 Hyaline Casts 0.40 /lpf 05/06/24 15:45 Urine Yeast 1+ /hpf H 05/06/24 15:45 Urine Opiates Screen Negative ng/mL (Negative) 05/06/24 15:45 Ur Barbiturates Screen Negative ng/mL (Negative) 05/06/24 15:45 Ur Phencyclidine Scrn Negative ng/mL (Negative) 05/06/24 15:45 Ur Amphetamines Screen Negative ng/mL (Negative) 05/06/24 15:45 U Benzodiazepines Scrn Negative ng/mL (Negative) 05/06/24 15:45 Urine Cocaine Screen Negative ng/mL (Negative) 05/06/24 15:45 U Marijuana (THC) Screen Positive ng/mL (Negative) H 05/06/24 15:45 All radiology interpretation(s) finalized by discharge Discharge Plan Discharge Patient Disposition: Admitted As Inpatient Clinical Impression: Acute cerebrovascular accident (CVA) Condition: Stable Prescriptions: No Action levothyroxine 75 mcg tablet 75 mcg PO DAILY Qty: 90 3RF aspirin 325 mg tablet 325 mg PO DAILY celecoxib [Celebrex] 100 mg capsule 100 mg PO DAILY cetirizine [Zyrtec] 10 mg tablet 10 mg PO DAILY PRN (Reason: allergy symptoms) Qty: 60 0RF (DME) lancets [OneTouch Delica Plus Lancet] 30 gauge misc See Rx Instructions .ROUTE .COMPLEX Qty: 100 1RF Dose Instruction: USE DIRECTED TO TEST BLOOD SUGAR ONCE DAILY. Rx Instructions: USE DIRECTED TO TEST BLOOD SUGAR ONCE DAILY. (DME) Diabetic Shoes with 3 inserts See Rx Instructions .Route .MEDSUPPLY Qty: 1 0RF Rx Instructions: [place] directed [place] Diabetic Shoes with custom insoles See Rx Instructions .Route .MEDSUPPLY Qty: 1 0RF Rx Instructions: As directed by [facility] ([facility] blood-glucose meter [Accu-Chek Guide Glucose Meter] Mis See Rx Instructions .Route Qty: 1 0RF Rx Instructions: Check BS TID daily (DME) OneTouch Ultra Test Strip See Rx Instructions .ROUTE .COMPLEX Qty: 100 0RF Dose Instruction: USE 1 STRIP TO CHECK GLUCOSE THREE TIMES DAILY Rx Instructions: USE 1 STRIP TO CHECK GLUCOSE THREE TIMES DAILY insulin glargine [Lantus Solostar U-100 Insulin] 100 unit/mL (3 mL) insulin pen 22 unit SUBCUT QAM Qty: 15 1RF (DME) pen needle, diabetic [1st Tier Unifine Pentips] 32 gauge x 5/32 needle See Rx Instructions .Route Qty: 50 12RF Rx Instructions: As directed, use with victoza to administer, daily. albuterol sulfate 90 mcg/actuation HFA aerosol inhaler 2 puff inhalation Q6H PRN (Reason: shortness of breath or wheezing) Qty: 8.5 0RF hydroxyzine HCl 25 mg tablet 25 mg PO TID PRN (Reason: itching) Qty: 90 0RF omeprazole 40 mg capsule,delayed release(DR/EC) 40 mg PO DAILY PRN (Reason: acid reflux) Qty: 30 5RF (DME) FreeStyle Janelle 3 [place] Misc See Rx Instructions .Route Qty: 1 0RF Rx Instructions: As directed ([facility] FreeStyle Janelle 3 Sensor Device See Rx Instructions .Route Qty: 6 1RF Rx Instructions: change sensor every 14 days metoprolol tartrate 25 mg tablet 25 mg PO BID Qty: 60 5RF (DME) FreeStyle Janelle 3 Plus Sensor Device See Rx Instructions .Route Qty: 6 0RF Rx Instructions: As directed atorvastatin 40 mg tablet 40 mg PO DAILY Qty: 30 0RF clopidogrel [Plavix] 75 mg tablet 75 mg PO DAILY Qty: 30 0RF insulin aspart U-100 [Novolog FlexPen U-100 Insulin] 100 unit/mL (3 mL) insulin pen See Rx Instructions .ROUTE .COMPLEX Rx Instructions: INJECT 5 UNITS SUB-Q THREE TIMES DAILY MAXIMUM DAILY DOSE IS 45 UNITS PER SLIDING SCALE Referrals: Israel Otero MD [Primary Care Provider] - Patient Instructions: Opioid Safety, Pain Management Coding Level of Care Code ED Poultry Tender for Esperanza Hernandez NIH stroke score NIHSS Level Of Consciousness - 1a: 0 Level Of Consciousness Questions - 1b: Both Correct Level Of Consciousness Commands - 1c: Both Correct Best Gaze - 2: Normal Visual Cooper - 3: No Visual Loss Facial Palsy - 4: Normal Motor Arm Right - 5: No Drift Motor Arm Left - 5: Drift Motor Leg Right - 6: No Drift Motor Leg Left - 6: Drift Limb Ataxia - 7: Present In One Limb Sensory - 8: Mild To Moderate Loss Best Language - 9: No Aphasia Dysarthia - 10: Normal Extinction And Inattention - 11: 0 Score Total Score: 4
--- NOTE | 2024-05-06 14:54 | ECG_ITS ---
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 Measurements Intervals Vici Rate: 87 P: 46 FL: 153 QRS: 16 QRSD: 77 T: 2 QT: 363 QTc: 438 Interpretive Statements SINUS RHYTHM Compared to ECG 05/06/2024 11:29:38 No significant changes Electronically Signed On 05-06-2024 19:23:49 HELPER MARBLE FINISHER by Ba Cyr M.D. [email or web address]
--- NOTE | 2024-05-06 14:54 | CTR_ITS ---
PROCEDURE INFORMATION: Exam: CT Head Without Contrast Exam date and time: 05/06/2024 4:44 PM Age: 48 years old Clinical indication: Stroke-like symptoms; Generalized numbness/paresthesia; Additional info: Symptoms of acute stroke. Left sided chest pain/numbness x1 mon wo trauma TECHNIQUE: Imaging protocol: Computed tomography of the head without contrast. Radiation optimization: All CT scans at this facility use at least one of these dose optimization techniques: automated exposure control; mA and/or kV adjustment per patient size (includes targeted exams where dose is matched to clinical indication); or iterative reconstruction. Other technique: STROKE PROTOCOL was implemented. COMPARISON: CT head wo con* [id number] 04/25/2024 8:56 PM RADIATION DOSE METRICS: Total DLP (mGy-cm): 970.8 FINDINGS: Brain: Normal. No hemorrhage. Unremarkable white matter. No mass effect. Cerebral ventricles: No ventriculomegaly. Paranasal sinuses: Visualized sinuses are unremarkable. No fluid levels. Mastoid air cells: Visualized mastoid air cells are well aerated. Bones: Unremarkable. No acute fracture. Soft tissues: Unremarkable. CT/CT head thrombolytic [id number] IMPRESSION: No acute intracranial abnormality. ASSESSMENT: ASPECTS ([facility] Stroke Program Early CT Score) is 10.
[2024-05-06 14:56] LABS: Alanine Aminotransferase 15 U/L (0-33); Albumin Level 3.9 g/dL (3.5-5.2); Alkaline Phosphatase 101 U/L (35-105); Blood Urea Nitrogen 13 mg/dL (6-20); Carbon Dioxide 23 mmol/L (22-29); Chloride 92 mmol/L (98-107); Creatinine Clr Calc Pharmacy 122.7154; Globulin 2.8 g/dL (1.3-4.6); Glomerular Filtration Rate 130.6 mL/min (90-130); Glucose 371 mg/dL (65-115); Osmolality Calculated 283 mOsm/kg (285-295); Sodium 129 mmol/L (136-145); Total Bilirubin 0.4 mg/dL (0.15-1.2); Total Protein 6.7 g/dL (6.6-8.7)
[2024-05-06 15:01] LABS: Anion Gap 18.3 (5-19); Potassium 4.3 mmol/L (3.5-5.1)
[2024-05-06 15:02] LABS: Aspartate Amino Transferase 15 U/L (0-32)
[2024-05-06 15:09] LABS: Basophils # 0.1 10^3/uL (0.0-0.1); Basophils % 0.6 %; Eosinophils # 0.1 10^3/uL (0.0-0.8); Eosinophils % 1.1 %; Hematocrit 44.3 % (36-47); Lymphocytes # 2.6 10^3/uL (0.8-4.8); Lymphocytes % 22.8 %; Mean Corpuscular HGB Conc 35.2 g/dL (30-55); Mean Corpuscular Hemoglobin 29.5 pg (27-33); Mean Corpuscular Volume 83.7 fl (85-98); Mean Platelet Volume 9.2 fL (7.4-10.4); Monocytes # 0.5 10^3/uL (0.2-0.9); Monocytes % 4.7 %; Neutrophils # 8.06 10^3/uL (1.8-7.7); Neutrophils % 70.3 %; Nucleated Red Blood Cells % 0 %; Platelet Count 331 10^3/cmm (157-399); Red Blood Count 5.29 10^6/uL (3.85-5.65); White Blood Count 11.48 10^3/uL (3.29-11.43)
[2024-05-06 15:17] LABS: INR 0.89 (0.8-1.2)
[2024-05-06 15:18] LABS: Partial Thromboplastin Time 22.2 SECONDS (23.9-36.7)
[2024-05-06 16:06] LABS: Bilirubin Urine Negative (Negative); Blood Urine 1+ (Negative); Glucose Urine UA 3+ (Normal); Ketones Urine 2+ (Negative); Leukocyte Esterase Urine Negative (Negative); Nitrate Urine Negative (Negative); Protein Urine 2+ (Negative); Urine Appearance Clear (CLEAR); Urine Color Yellow (Yellow); Urobilinogen Urine 0.2 mg/dL (Negative)
[2024-05-06 16:08] LABS: Add Urine Microscopic? YES; Bacteria Urine Trace /hpf; WBC Urine 21-50 /hpf (0-5)
[2024-05-06 16:13] LABS: Amphetamines Screen Urine Negative (Negative); Barbiturates Screen Urine Negative (Negative); Benzodiazepines Screen Urine Negative (Negative); Cocaine Screen Urine Negative (Negative); Opiate Screen Urine Negative (Negative); PCP Screen Urine Negative (Negative); THC Screen Urine Positive (Negative)
[2024-05-06 16:47] LABS: Specific Gravity, Urine 1.043 (1.005-1.030)
[2024-05-06 16:48] LABS: Add Urine Culture? Yes; UA Slide Review UA Slide Review Perf
[2024-05-06] MEDS: ketorolac 30 mg/mL INJ IVP (17:51)
--- NOTE | 2024-05-06 18:56 | P.HP_ITS ---
Providers/Chief Complaint 2 Admitting Physician: Keyon Quintanilla Primary Care Provider: Israel Otero MD Chief Complaint: left side numb chest pains History of Present Illness Very pleasant 48-year-old lady with history of SVT, ablation, smoking, diabetes, rheumatoid arthritis, HLD, JOSE, other medical problems came in due to waking up with weakness, numbness of the left side of her body. In ER she was assessed for suspected stroke, she was not found to be candidate for thrombolytic therapy or endovascular intervention. She reports she has been trying to quit smoking and has cut down to about a half a pack per day. She reports she had accidentally driven one of the carts at work into an obstacle about a week or 2 previously and subsequently had a mild to moderate left-sided headache and a concern about her vision and was assessed by ophthalmology. She has been taking celecoxib. Review of Systems 2 Const: Denies: fever(s) Card: Denies: chest pain or edema Resp: Denies: dyspnea or productive cough GI: Denies: abdominal pain, nausea, vomiting, diarrhea or constipation : Denies: flank pain, urinary frequency or hematuria Skin/Breast: Denies: rash or new lesions Neuro: Reports: headache(s), numbness in extremities and weakness in extremities; Denies: dizziness, confusion or seizure-like activity Medications/Allergies Home Medications Medication Instructions Recorded Confirmed Last Taken Type Diabetic Shoes with 3 inserts #1 ea 05/05/22 05/06/24 Unknown Rx lancets 30 gauge (OneTouch Delica #100 ea 05/05/22 05/06/24 Unknown Rx Plus Lancet) blood-glucose meter (Accu-Chek #1 ea 11/08/22 05/06/24 Unknown Rx Guide Glucose Meter) blood sugar diagnostic (OneTouch #100 ea 03/28/23 05/06/24 Unknown Rx Ultra Test strips) insulin glargine 100 unit/mL (3 22 unit (0.22 mL) SUBCUT QAM #15 mL 06/26/23 05/06/24 10/26/23 Rx mL) subcutaneous pen (Lantus Solostar U-100 Insulin) pen needle, diabetic 32 gauge x #50 ea 06/27/23 05/06/24 Unknown Rx (1st Tier Unifine Pentips) albuterol sulfate 90 mcg/actuation 2 puff inhalation Q6H PRN 07/26/23 05/06/24 Unknown Rx aerosol inhaler shortness of breath or wheezing #8.5 grams levothyroxine 75 mcg tablet 75 mcg PO DAILY low thyroid #90 08/11/23 05/06/24 10/26/23 Rx tabs hydroxyzine HCl 25 mg tablet 25 mg PO TID PRN itching #90 tabs 10/31/23 05/06/24 Unknown Rx aspirin 325 mg tablet 325 mg PO DAILY 11/15/23 05/06/24 05/06/24 History omeprazole 40 mg capsule,delayed 40 mg PO DAILY PRN acid reflux #30 12/12/23 05/06/24 Unknown Rx release caps blood-glucose meter,continuous #1 ea 02/05/24 05/06/24 Unknown Rx (FreeStyle Janelle 3 Nunnelly) blood-glucose sensor (FreeStyle #6 ea 02/05/24 05/06/24 Unknown Rx Janelle 3 Sensor device) Diabetic Shoes with custom insoles #1 ea 02/20/24 05/06/24 Unknown Rx metoprolol tartrate 25 mg tablet 25 mg PO BID tachycardia #60 tabs 03/07/24 05/06/24 Unknown Rx atorvastatin 40 mg tablet 40 mg PO DAILY #30 tabs 04/25/24 05/06/24 05/06/24 Rx blood-glucose sensor (FreeStyle #6 ea 04/25/24 05/06/24 Unknown Rx Janelle 3 Plus Sensor device) clopidogrel 75 mg tablet (Plavix) 75 mg PO DAILY #30 tabs 04/25/24 05/06/24 05/06/24 Rx celecoxib 100 mg capsule (Celebrex) 100 mg PO DAILY 04/26/24 05/06/24 05/06/24 History cetirizine 10 mg tablet (Zyrtec) 10 mg PO DAILY PRN allergy 04/26/24 05/06/24 05/06/24 Rx symptoms #60 tabs insulin aspart U-100 100 unit/mL See Rx Instructions .Route .COMPLEX 05/06/24 05/06/24 Unknown History (3 mL) subcutaneous pen (Novolog FlexPen U-100 Insulin aspart) Allergies Allergy/AdvReac Type Severity Reaction Status Date / Time amoxicillin Allergy Unknown Verified 04/26/24 15:47 PFSH Acute 2 PFSH: Medical History Supraventricular tachycardia (~04/2020) identified during ED visit 04/2020, treated with 6mg adenosine with conversion to sinus Generalized anxiety disorder with panic attacks Smokers' cough Acute pancreatitis Unintentional weight loss of more than 10% body weight within 6 months Diabetic macular edema Diabetic retinopathy, nonproliferative, severe Polysubstance (including opioids) dependence w/o physiol dependence smoker, severe cannabis, Opioid, Methamphetamines Insomnia Smoker COPD (chronic obstructive pulmonary disease) with emphysema Scoliosis associated with other condition Lumbar disc disease with radiculopathy Hemochromatosis carrier Diabetes type 2, uncontrolled PTSD (post-traumatic stress disorder) History of rheumatoid arthritis Osteoarthritis involving multiple joints on both sides of body GERD (gastroesophageal reflux disease) JOSE (obstructive sleep apnea) per sleep study 2010, CPAP of 13 recommended at that time, no longer with machine Dyslipidemia Hypothyroidism Surgical History Hx of cataract surgery bilateral eye History of umbilical hernia repair (~2011) History of incision and drainage (~2013) right upper extremity and R lower extremity History of tubal ligation History of hysterectomy (~2011) also Kimberly urethral plication Family History Father Diabetes Mother Diabetes Grandfather Postsurgical cardiac pacemaker in situ Denies family history of Stroke Social History Smoking and tobacco/nicotine status: current every day tobacco/nicotine user cigarettes Packs smoked per day: 0.5 Years cigarettes smoked: 33 Quit status (tobacco/nicotine): has tried quititng Number of times tried to quit tobacco: 5 Second hand smoke exposure: Yes Alcohol intake: former Substance/Drug Use: former Date of last use: IV drug use - 2019 Caregiver/support person: No Lives independently: Yes Household members: spouse Housing: House Marital status: Life Partner Number of children: 2 Number of grandchildren: 0 Highest education level completed: High School Graduate service: No Current occupational status: unemployed Pets and animals: Yes Pets & animals: dog(s) Do you think of yourself as: Straight/Heterosexual Current gender identity: Female Sirena/Orthodox: Oriental Orthodox Vitals/I&O/Wt Last Vital Signs Temp 97.7 F 05/06/24 11:29 Pulse 88 05/06/24 18:00 Resp 18 05/06/24 11:29 BP 142/120 05/06/24 18:00 Pulse Ox 94 05/06/24 18:00 O2 Del Method Room Air 05/06/24 18:00 Weight last 48 hrs Weight 65.771 kg Physical Exam 2 Const: COMMON NORMALS: patient oriented x3 and alert GENERAL APPEARANCE: c ooperative ORIENTATION/CONSCIOUSNESS: Yes awake Resp: COMMON NORMALS: normal respiratory effort and clear to auscultation bilaterally AUSCULTATION: clear to auscultation bilaterally Cardio: COMMON NORMALS: no JVD, regular rhythm, S1 normal heart sound present, S2 normal heart sound present and No murmurs present (Cardio) RHYTHM: regular rhythm HEART SOUNDS: S1 normal heart sound present and S2 normal heart sound present GI: COMMON NORMALS: Normal to inspection, nondistended, normoactive bowel sounds present, Soft to palpation and non-tender PALPATION: Yes Soft to palpation Extremity: COMMON NORMALS: no joint enlargement and no pedal edema Neuro: COMMON NORMALS: patient oriented x3 SENSORIUM/ORIENTATION: Yes alert OTHER: She is awake, alert, conversant, readily follows directions, no noticeable facial droop, no dysarthria or aphasia. No difficulty with horizontal tracking. Visual hollis full to confrontation, no visual extinction. FNF mildly slowed on the left side with some minimal difficulty. Decreased sensation on the left without sensory extinction. No longer has upper extremity drift. Mild left lower extremity drift. Skin: COMMON NORMALS: no rashes or lesions noted GENERAL SKIN EXAM: no rashes or lesions noted Data 05/06/24 14:55 05/06/24 14:15 A&P Assessment and plan (1) Stroke determined by clinical assessment: Acute/subacute CVA, woke up with deficits this morning with last known normal last night. CT head without obvious CVA. Reviewed vitals, CBC, INR, CMP, UA, UDS, CT head, EKG on my interpretation with sinus rhythm, without evidence of A- fib or flutter, pending official read; ER note, discussed with ER provider. Left-sided weakness, numbness. Difficulty with ambulation. Left-sided ataxia. Was assessed for CVA in ER, not found to be candidate for acute intervention. Continue aspirin, Plavix, statin. Monitor on telemetry. Does have history of SVT, s/p ablation. May benefit from further assessment with surveillance system monitor at discharge. Has been having a mild headache after bumping a cart into an obstacle at work. Vision was assessed by ophthalmology. Will assess CT angiogram head and neck. On review of prior study did not have significant disease. Assess echocardiogram bubble study. Assess A1c. Discussed with her smoking cessation. Discontinuing Celebrex. Permissive hypertension for now, long-term will benefit from to medication of hypertension, diabetes. Bedside swallow evaluation, further assessment by PT, OT, ST. Case management consultation. Fall precautions. Plan Pyuria: 25-50 WBC on review of UA. Possible mild concomitant concomitant UTI. Will start ceftriaxone for now, follow-up urine culture. Last urine culture with E. coli on review. Smoking: Discussed most consideration with her for 5 minutes. She has been trying to quit and has cut down to about half a pack a day. Discussed further cardiovascular risks. Continue to encourage cessation. Nicotine replacement as needed DM2: Monitor blood glucose. Continue Lantus. Sliding scale insulin. Monitor for risk of hypoglycemia. HTN: Permissive hypertension for now, discussed with her long-term goal blood pressure target of 120/80. Continue metoprolol at reduced dose to reduce chance of withdrawal. Discontinue celecoxib Attestations 2 Medical Necessity Statement*: Admission of over 2 midnights anticipated for assessment of management of acute/subacute stroke with left side weakness, numbness, has been unable to ambulate. and High MDM includes number and complexity of problems actively addressed during encounter and amount and/or complexity of data reviewed/ordered [ previous or external records, resulted lab(s)/test(s), ordered lab(s)/test(s) and other healthcare professional discussion] as documented Diagnoses Stroke determined by clinical assessment I63.9
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
--- NOTE | 2024-05-06 19:45 | USCV_ITS ---
Mena Cano Age: 48 Gender: F : 1975 Exam Date: 05/06/2024 20:28 Ordering Phys: Keyon Quintanilla MD Technologist: CHET [place] [facility] [place]: LEFT hemiparesis, LEFT facial numbness BP: 157 / 103 HR: 86 Rhythm: Sinus Technical Quality: Adequate MEASUREMENTS (Male / Female) Normal Values 2D ECHO LV Diastolic Diameter PLAX 3.3 cm 4.2 - 5.9 / 3.9 - 5.3 cm IVS Diastolic Thickness 1.6 cm 0.6 - 1.0 / 0.6 - 0.9 cm IVS Systolic Thickness 1.6 cm LVPW Diastolic Thickness 1.3 cm 0.6 - 1.0 / 0.6 - 0.9 cm LVPW Systolic Thickness 1.7 cm LVOT Diameter 1.7 cm LV Ejection Fraction 2D Teich 67.2 % LV Ejection Fraction MOD 4C 69.9 % LV Ejection Fraction MOD 2C 58.8 % LV Ejection Fraction 2C AL 60.8 % LA Diameter 3.5 cm Aorta at Sinotubular Diameter 3.1 cm IVC Diameter 1.4 cm M-MODE LA Ao Ratio MM 1.1 AV Cusp Separation MM 1.7 cm DOPPLER AV Peak Velocity 117.0 cm/s LVOT Peak Velocity 86.0 cm/s AV Area Cont Eq vti 2.0 cm squared AV Area Cont Eq pk 1.7 cm squared MV Peak Velocity 108.0 cm/s MV Area PHT 4.4 cm squared Mitral E to A Ratio 0.8 TR Peak Velocity 217.0 cm/s TR Peak Gradient 18.8 mmHg TV Peak E Velocity 46.0 cm/s PV Peak Velocity 85.0 cm/s FINDINGS Left Ventricle Left ventricle is normal in size. LV systolic function is normal with EF of 60 to 65%. No regional wall motion abnormalities are seen. Grade 1 diastolic dysfunction. Right Ventricle Normal in size and function Right Atrium Normal in size. On bubble study, no evidence of intracardiac shunting Left Atrium Normal in size Mitral Valve Structurally normal mitral valve. Mild mitral regurgitation. Aortic Valve Structurally normal aortic valve. No significant stenosis or regurgitation. Tricuspid Valve Insufficient TR jet to evaluate RVSP. Pulmonic Valve Grossly normal Pericardium Normal Aorta Normal in size IVC Appears to be normal CONCLUSIONS LV systolic function is normal with EF of 60 to 65%. Grade 1 diastolic dysfunction. On bubble study no evidence of intracardiac shunting. Mild mitral regurgitation. Compared to prior echocardiogram from 11/2023, no significant changes are seen Carlo Gutierrez MD (Electronically Signed) Final Date: 07 May 2024 10:27 S
[2024-05-06] MEDS: iohexol 350 mg/mL 500 mL Btl (per mL) IV (19:59)
[2024-05-06 21:29] LABS: Glucose Point of Care 419 mg/dL (70-110)
[2024-05-06] MEDS: insulin lispro 100 unit/1 mL SUBCUT (23:00)
[2024-05-07 00:15] VITALS: BP 140/62; PULSE 64; RESP 15; TEMP 36.3; O2SAT 96
[2024-05-07 01:15] VITALS: BP 153/63; PULSE 62; RESP 14; TEMP 36.8; O2SAT 98
[2024-05-07] MEDS: acetaminophen 500 mg Tablet 1000 MG PO ×2 (01:42→09:26)
[2024-05-07] MEDS: benzonatate 100 mg Capsule 200 MG PO (01:43)
[2024-05-07 03:48] VITALS: BP 160/92; PULSE 77; RESP 14; TEMP 36.7; O2SAT 96
[2024-05-07 05:28] LABS: Chol HDL Ratio 5.12 mg/dL (0.0-4.40); Cholesterol 220 mg/dL (0-200); HDL Cholesterol 43 mg/dL (60-100); LDL Cholesterol Calculated 118 mg/dL (50-129); LDL HDL Ratio 2.74 RATIO (0.00-3.22); Triglycerides 294 mg/dL (0-150)
[2024-05-07 05:36] LABS: Estmated Average Glucose 361; Hemoglobin A1C 14.2 % (4.0-6.0)
[2024-05-07 06:29] LABS: Glucose Point of Care 318 mg/dL (70-110)
[2024-05-07 07:24] VITALS: BP 134/78; PULSE 85; RESP 16; TEMP 36.8; O2SAT 91
[2024-05-07 08:40] VITALS: PULSE 97; RESP 18; O2SAT 97
[2024-05-07] MEDS: aspirin 325 mg Tablet PO (09:25)
[2024-05-07] MEDS: levothyroxine 75 mcg Tablet PO (09:25)
[2024-05-07] MEDS: clopidogrel 75 mg Tablet PO (09:25)
[2024-05-07] MEDS: atorvastatin 40 mg Tablet PO (09:25)
[2024-05-07] MEDS: insulin glargine 100 units/1 mL 22 UNIT SUBCUT (09:26)
[2024-05-07] MEDS: metoprolol tartrate 25 mg Tablet 12.5 MG PO (09:26)
[2024-05-07] MEDS: insulin lispro 100 unit/1 mL SUBCUT ×2 (09:26→12:20)
[2024-05-07] MEDS: cetylpyridinium Lozenge 1 EACH MUCOUS MEM (09:26)
--- NOTE | 2024-05-07 10:12 | PC.CHAP ---
Pastoral Care Encounter/Spiritual Assessment Type of Contact [] Declined spot man visit [] Patient/Family/Request visit [] Outpatient visit [] Follow-up visit [] Physician referral [] Code/Alert [x] Routine visit [] Staff referral [] Actively dying [] Patient sleeping [] Family support [] [] Out of room [] Palliative care [] [] Receiving care in room [] Pre-surgical visit [] Trauma [] Long length of stay [] ICU visit [] Other: Relational/Emotional Strength [x] Patient feels connected with others/family/visitors/staff [] Distress [] Loneliness/isolation [] Abandonment Spirituality of Patient [x] Person of Sirena [] Attends Confucianist of their Sirena [x] Believes in Prayer [] Reads Bible or Christianity materials [] There are Spiritual issues to be addressed Cloth Shrinking Supervisor Interventions [x] Prayer [x] Active listening [x] Non-anxious presence [x] Spiritual/emotional support [] Crisis/trauma care [] Spiritual counseling [] Bereavement support [] Provided bereavement packet [] Provided Bible/devotional materials [] Provided toy/stuffed animal, coloring book to patient or family member [] Provided Communion [] Anointing/[place] [] Salvation [x] Completed spiritual assessment [] Other: Impact on Illness or Injury [] Angry [] Fearful [] Anxious [] Often cries [] Exhaustion [] Unable to work [] Unable to attend cheondoism [] Unable to walk/stand [] Unable to read [] Unable to drive [] Unable to eat/drink [] Unable to sleep [] Unable to be with family [] Patient intubated [] Other: Summary Time spent with patient 10 min
[2024-05-07 10:49] LABS: Glucose Point of Care 505 mg/dL (70-110)
[2024-05-07 11:28] VITALS: BP 161/99; PULSE 83; RESP 15; TEMP 36.9; O2SAT 96
--- NOTE | 2024-05-07 12:20 | PM.DCS ---
Discharge Providers Date of Admission: 05/06/24 18:10 Date of Discharge: May 07, 2024 Attending Provider at Admission: Keyon Quintanilla Attending Provider at Discharge: Keyon Quintanilla Primary Care Provider: Israel Otero MD Diagnoses at Discharge Discharge Diagnosis (1) Stroke determined by clinical assessment: Status: Acute Reason for Visit Reason for Visit: left side numb chest pains Brief History: Very pleasant 48-year-old lady with history of SVT, ablation, smoking, diabetes, rheumatoid arthritis, HLD, JOSE, other medical problems came in due to waking up with weakness, numbness of the left side of her body. In ER she was assessed for suspected stroke, she was not found to be candidate for thrombolytic therapy or endovascular intervention. She reports she has been trying to quit smoking and has cut down to about a half a pack per day. She reports she had accidentally driven one of the carts at work into an obstacle about a week or 2 previously and subsequently had a mild to moderate left-sided headache and a concern about her vision and was assessed by ophthalmology. She has been taking celecoxib. Hospital Course Hospital Course Her symptoms showed some mild improvement but still with residual sensory deficit, mild weakness left upper and lower extremity, mild dysmetria. We revisited with her again regarding smoking cessation, A1c was obtained and diabetes has not been under control, A1c is 14.2. She states that she sometimes does not take long-acting insulin due to hypoglycemic episodes in the afternoon when she combines short acting insulin on top. Discussed with her to continue long-acting at all times, decrease short acting insulin if she is anticipating she may not have a meal or have only a small meal. She is asked to follow-up with endocrinology. She is being set up with a freestyle janelle as Dexcom was no longer covered by her insurance. She is asked to continue consistent carbohydrate diet. Please reassess diabetes control. She is asked to discontinue Celebrex, avoid NSAIDs. She would additionally benefit from optimization of hypertension control. She is advised to continue cardiac diet. She is resumed on metoprolol. Losartan is added. She is continued on aspirin and Plavix as well as statin. Bubble study TTE was obtained, without intracardiac shunting. She is set up with colorist dyer at discharge due to some palpitations although atrial fibrillation was not observed and does not have history. Has history of SVT, he is status post ablation. She is asked to follow-up with neurology. For some possible UTI with some pyuria is prescribed a course of cefdinir. Urine culture is pending. Please follow-up. She was assessed by PT, OT, ST. A walker is requested for her as per recommendation. Physical Exam Const: COMMON NORMALS: patient oriented x3 and alert GENERAL APPEARANCE: cooperative ORIENTATION/CONSCIOUSNESS: Yes awake Neck/C-Spine: COMMON NORMALS: no JVD Resp: COMMON NORMALS: normal respiratory effort and clear to auscultation bilaterally AUSCULTATION: clear to auscultation bilaterally Cardio: COMMON NORMALS: no JVD, regular rhythm, S1 normal heart sound present, S2 normal heart sound present and No murmurs present (Cardio) RHYTHM: regular rhythm HEART SOUNDS: S1 normal heart sound present and S2 normal heart sound present GI: COMMON NORMALS: Normal to inspection, nondistended, normoactive bowel sounds present, Soft to palpation and non-tender PALPATION: Yes Soft to palpation Extremity: COMMON NORMALS: no joint enlargement and no pedal edema Neuro: COMMON NORMALS: patient oriented x3 SENSORIUM/ORIENTATION: Yes alert OTHER: She is awake, alert, conversant, readily follows directions, no noticeable facial droop, no dysarthria or aphasia. No difficulty with horizontal tracking. Visual hollis full to confrontation, no visual extinction. FNF mildly slowed on the left side with some minimal difficulty. Decreased sensation on the left without sensory extinction. Mild MALINI extremity drift. Mild left lower extremity drift. Skin: COMMON NORMALS: no rashes or lesions noted GENERAL SKIN EXAM: no rashes or lesions noted Discharge Data Studies Completed and Pending Completed Studies During Hospitalization Category Date Time Status CT head thrombolytic [id number] Stat Cat Scan 05/06/24 14:54 Completed CTA head neck [CT angio headneck* [id number]] Routine Cat Scan 05/06/24 19:45 Completed CV. echo w/w bubble cont [id number] Routine Ultrasound 05/06/24 19:45 Completed Pending at discharge Category Date Time Status Urine Culture Stat Lab 05/06/24 15:45 Received Radiology Impressions Head CT 05/06/24 14:54 IMPRESSION: No acute intracranial abnormality. ASSESSMENT: ASPECTS ([place] Stroke Program Early CT Score) is 10. ADDENDUM: 05/06/24 1709 Addendum: THIS REPORT CONTAINS FINDINGS THAT MAY BE CRITICAL TO PATIENT CARE. The findings were verbally communicated via telephone conference with MONE CARDENAS at 5:08 PM FRANCHISE CONSULTANT on 05/06/2024. The findings were acknowledged and understood. Head/Neck CTA 05/06/24 19:45 IMPRESSION: No large vessel stenosis or occlusion. IMPRESSION: No stenosis, dissection, or occlusion. REFERENCES: NASCET CRITERIA. The degree of stenosis in the cervical segment of the internal carotid artery is based on NASCET criteria. Normal is no stenosis. Mild is less than 50% stenosis. Moderate is 50-69% stenosis. Severe is 70% to 99% stenosis. Total occlusion is no detectable patent lumen. ADDENDUM: 05/06/242110 ADDENDUM: THIS REPORT CONTAINS FINDINGS THAT MAY BE CRITICAL TO PATIENT CARE. The findings were verbally communicated via telephone conference with Dr. Loza at 9:09 PM FRANCHISE CONSULTANT on 05/06/2024. The findings were acknowledged and understood. Laboratory Results WBC 11.48 10^3/uL (3.29-11.43) H 05/06/24 14:55 RBC 5.29 10^6/uL (3.85-5.65) 05/06/24 14:55 Hgb 15.60 g/dL (11.27-16.99) 05/06/24 14:55 Hct 44.3 % (36-47) 05/06/24 14:55 MCV 83.7 fl (85-98) L 05/06/24 14:55 MCH 29.5 pg (27-33) 05/06/24 14:55 MCHC 35.2 g/dL (30-55) 05/06/24 14:55 RDW 12.0 % (12.1-15.1) L 05/06/24 14:55 Plt Count 331 10^3/cmm (157-399) 05/06/24 14:55 MPV 9.2 fL (7.4-10.4) 05/06/24 14:55 Neut % (Auto) 70.3 % 05/06/24 14:55 Lymph % (Auto) 22.8 % 05/06/24 14:55 [place] % (Auto) 4.7 % 05/06/24 14:55 Eos % (Auto) 1.1 % 05/06/24 14:55 Baso % (Auto) 0.6 % 05/06/24 14:55 Neut # (Auto) 8.06 10^3/uL (1.8-7.7) H 05/06/24 14:55 Lymph # (Auto) 2.6 10^3/uL (0.8-4.8) 05/06/24 14:55 [place] # (Auto) 0.5 10^3/uL (0.2-0.9) 05/06/24 14:55 Eos # (Auto) 0.1 10^3/uL (0.0-0.8) 05/06/24 14:55 Baso # (Auto) 0.1 10^3/uL (0.0-0.1) 05/06/24 14:55 Nucleated RBC % (auto) 0 % 05/06/24 14:55 Nucleated RBCs # 0.0 /100WBC 05/06/24 14:55 PT 12.40 SECONDS (12.1-14.9) 05/06/24 14:55 INR 0.89 (0.8-1.2) 05/06/24 14:55 APTT 22.2 SECONDS (23.9-36.7) L 05/06/24 14:55 Sodium 129 mmol/L (136-145) L 05/06/24 14:15 Potassium 4.3 mmol/L (3.5-5.1) 05/06/24 14:15 Chloride 92 mmol/L (98-107) L 05/06/24 14:15 Carbon Dioxide 23 mmol/L (22-29) 05/06/24 14:15 Anion Gap 18.3 (5-19) 05/06/24 14:15 BUN 13 mg/dL (6-20) 05/06/24 14:15 Creatinine 0.5 mg/dL (0.5-0.9) 05/06/24 14:15 GFR Calculation 130.6 mL/min (90-130) H 05/06/24 14:15 Glucose 371 mg/dL (65-115) H 05/06/24 14:15 POC Glucose 505 mg/dL (70-110) H* 05/07/24 10:42 Estimat Average Glucose 361 05/07/24 04:43 Hemoglobin A1c 14.2 % (4.0-6.0) H 05/07/24 04:43 Calculated Osmolality 283 mOsm/kg (285-295) L 05/06/24 14:15 Calcium 9.0 mg/dL (8.5-10.5) 05/06/24 14:15 Total Bilirubin 0.4 mg/dL (0.15-1.2) 05/06/24 14:15 AST 15 U/L (0-32) 05/06/24 14:15 ALT 15 U/L (0-33) 05/06/24 14:15 Alkaline Phosphatase 101 U/L (35-105) 05/06/24 14:15 Total Protein 6.7 g/dL (6.6-8.7) 05/06/24 14:15 Albumin 3.9 g/dL (3.5-5.2) 05/06/24 14:15 Globulin 2.8 g/dL (1.3-4.6) 05/06/24 14:15 Triglycerides 294 mg/dL (0-150) H 05/07/24 04:43 Cholesterol 220 mg/dL (0-200) H 05/07/24 04:43 LDL Cholesterol, Calc 118 mg/dL (50-129) 05/07/24 04:43 HDL Cholesterol 43 mg/dL (60-100) L 05/07/24 04:43 LDL/HDL Ratio 2.74 RATIO (0.00-3.22) 05/07/24 04:43 Cholesterol/HDL Ratio 5.12 mg/dL (0.0-4.40) H 05/07/24 04:43 Urine Color Yellow (Yellow) 05/06/24 15:45 Urine Appearance Clear (CLEAR) 05/06/24 15:45 Urine pH 6.0 (5-7) 05/06/24 15:45 Ur Specific [place] 1.043 (1.005-1.030) H 05/06/24 15:45 Urine Protein 2+ (Negative) A 05/06/24 15:45 Urine Glucose (UA) 3+ (Normal) H 05/06/24 15:45 Urine Ketones 2+ (Negative) H 05/06/24 15:45 Urine Blood 1+ (Negative) A 05/06/24 15:45 Urine Nitrate Negative (Negative) 05/06/24 15:45 Urine Bilirubin Negative (Negative) 05/06/24 15:45 Urine Urobilinogen 0.2 mg/dL (Negative) 05/06/24 15:45 Ur Leukocyte Esterase Negative (Negative) 05/06/24 15:45 Urine RBC 6-10 /hpf (0-2) 05/06/24 15:45 Urine WBC 21-50 /hpf (0-5) H 05/06/24 15:45 Ur Squamous Epith Cells 6-10 /hpf (0-5) 05/06/24 15:45 Amorphous Sediment Not Reportable 05/06/24 15:45 Urine Bacteria Trace /hpf (NONE) 05/06/24 15:45 Hyaline Casts 0.40 /lpf 05/06/24 15:45 Urine Yeast 1+ /hpf H 05/06/24 15:45 Urine Opiates Screen Negative ng/mL (Negative) 05/06/24 15:45 Ur Barbiturates Screen Negative ng/mL (Negative) 05/06/24 15:45 Ur Phencyclidine Scrn Negative ng/mL (Negative) 05/06/24 15:45 Ur Amphetamines Screen Negative ng/mL (Negative) 05/06/24 15:45 U Benzodiazepines Scrn Negative ng/mL (Negative) 05/06/24 15:45 Urine Cocaine Screen Negative ng/mL (Negative) 05/06/24 15:45 U Marijuana (THC) Screen Positive ng/mL (Negative) H 05/06/24 15:45 Vitals Last Vital Signs Temp 98.4 F 05/07/24 11:28 Pulse 83 05/07/24 11:28 Resp 15 05/07/24 11:28 BP 161/99 05/07/24 11:28 Pulse Ox 96 05/07/24 11:28 O2 Del Method Room Air 05/07/24 11:28 Discharge Plan Discharge Patient Disposition: Home Condition: Stable Prescriptions: New nicotine 14 mg/24 hr Patch 24 Hour 1 patch transdermal Q24H PRN (Reason: Withdrawal) Qty: 90 0RF nicotine (polacrilex) 4 mg Lozenge 4 mg mucous membrane Q2H PRN (Reason: Nicotine Cravings) Qty: 180 3RF cefdinir 300 mg capsule 300 mg PO BID 5 Days Qty: 10 0RF losartan 25 mg tablet 25 mg PO DAILY Qty: 90 0RF Continued levothyroxine 75 mcg tablet 75 mcg PO DAILY Qty: 90 3RF aspirin 325 mg tablet 325 mg PO DAILY cetirizine [Zyrtec] 10 mg tablet 10 mg PO DAILY PRN (Reason: allergy symptoms) Qty: 60 0RF insulin glargine [Lantus Solostar U-100 Insulin] 100 unit/mL (3 mL) insulin pen 22 unit SUBCUT QAM Qty: 15 1RF albuterol sulfate 90 mcg/actuation HFA aerosol inhaler 2 puff inhalation Q6H PRN (Reason: shortness of breath or wheezing) Qty: 8.5 0RF hydroxyzine HCl 25 mg tablet 25 mg PO TID PRN (Reason: itching) Qty: 90 0RF omeprazole 40 mg capsule,delayed release(DR/EC) 40 mg PO DAILY PRN (Reason: acid reflux) Qty: 30 5RF metoprolol tartrate 25 mg tablet 25 mg PO BID Qty: 60 5RF atorvastatin 40 mg tablet 40 mg PO DAILY Qty: 30 0RF clopidogrel [Plavix] 75 mg tablet 75 mg PO DAILY Qty: 30 0RF insulin aspart U-100 [Novolog FlexPen U-100 Insulin] 100 unit/mL (3 mL) insulin pen See Rx Instructions .ROUTE .COMPLEX Rx Instructions: INJECT 5 UNITS SUB-Q THREE TIMES DAILY MAXIMUM DAILY DOSE IS 45 UNITS PER SLIDING SCALE Discontinued celecoxib [Celebrex] 100 mg capsule 100 mg PO DAILY No Action (DME) lancets [OneTouch Delica Plus Lancet] 30 gauge [facility] [place] See Rx Instructions .ROUTE .COMPLEX Qty: 100 1RF Dose Instruction: USE DIRECTED TO TEST BLOOD SUGAR ONCE DAILY. Rx Instructions: USE DIRECTED TO TEST BLOOD SUGAR ONCE DAILY. (DME) Diabetic Shoes with 3 inserts See Rx Instructions .Route .MEDSUPPLY Qty: 1 0RF Rx Instructions: As directed (DME) Diabetic Shoes with custom insoles See Rx Instructions .Route .MEDSUPPLY Qty: 1 0RF Rx Instructions: As directed by [facility] (DME) blood-glucose meter [Accu-Chek Guide Glucose Meter] [facility] [place] See Rx Instructions .Route Qty: 1 0RF Rx Instructions: Check BS TID daily (DME) OneTouch Ultra Test Strip See Rx Instructions .ROUTE .COMPLEX Qty: 100 0RF Dose Instruction: USE 1 STRIP TO CHECK GLUCOSE THREE TIMES DAILY Rx Instructions: USE 1 STRIP TO CHECK GLUCOSE THREE TIMES DAILY (DME) pen needle, diabetic [1st Tier Unifine Pentips] 32 gauge x 5/32 needle See Rx Instructions .Route Qty: 50 12RF Rx Instructions: As directed, use with victoza to administer, daily. (DME) FreeStyle Janelle 3 Golden Misc See Rx Instructions .Route Qty: 1 0RF Rx Instructions: As directed (DME) FreeStyle Janelle 3 Sensor Device See Rx Instructions .Route Qty: 6 1RF Rx Instructions: change sensor every 14 days (DME) FreeStyle Janelle 3 Plus Sensor Device See Rx Instructions .Route Qty: 6 0RF Rx Instructions: As directed Discharge Orders: Discharge Order (Routine); Ordered 05/07/24 Ordered By: Keyon Jonas Ambulatory Orders: DME: Walker (Order) Location: None Selected Ordered By: Keyon Quintanilla MCT/Event Monitor 21 Days (Routine) Timeframe: 1 Day Facility: [facility] - Location: Radiology Ordered By: Keyon Quintanilla Referrals: Primary, provider [Other] - 4-7 days Remington Richard MD [Physician] - 1 week (CVA We have notified your physician's clinic of the need for a follow-up appointment to be scheduled. If you have not heard from them within the next 2 business days, please call them directly. ) Israel Otero MD [Primary Care Provider] - (We have notified your physician's clinic of the need for a follow-up appointment to be scheduled. If you have not heard from them within the next 2 business days, please call them directly. ) Brice Drummond MD [Physician] - 1 week (Uncontrolled DM, CVA We have notified your physician's clinic of the need for a follow-up appointment to be scheduled. If you have not heard from them within the next 2 business days, please call them directly. ) Discharge Diet: Cardiac and Diabetic Discharge Activity: Increase activity as tolerated and As per PT/OT instructions Patient Instructions: How to Stop Smoking (GEN), Heart Healthy Diet (GEN), Cigarette Smoking and Your Health (GEN), Ischemic Stroke (GEN), Opioid Safety, Pain Management, Stroke Stoplight Activity Restrictions/Additional Instructions: To help reduce the chance of recurrence of stroke: Please stop smoking. Please stop Celebrex. Please make sure you are taking your insulin, especially the long-acting insulin. In case you are not going to have a meal or will have is only a small meal, decrease the dose of the short acting insulin before the meal as discussed. Avoid low blood glucose (Sugars less than 70). In case your sugars are running low despite decreasing the short acting insulin or even stopping it, you will need to decrease the long-acting insulin dose by 10 units. Subsequently if sugars are rising again, increase the long-acting insulin slowly by about 2 to 3 units per day. Please follow-up with endocrinology. Your A1c is over 14. Target A1c of 8. Continue consistent carbohydrate diet. Monitor blood pressures 2-3 times daily, save values to bring to her appointment. Continue to optimize blood pressure control, long-term target blood pressure 120/80. Maintain heart healthy diet. As discussed, and heart monitor is also requested for you to further assess for any episodes of atrial fibrillation. Please follow-up with your primary provider. Please follow-up with neurology for further assessment after stroke. Maintain fall precautions. Use walker as instructed by physical therapy. A walker is requested for you. Seek medical attention in case of any worsening or new concerning symptoms. Discharge Attestations Time Spent in Discharge Care*: greater than 30 min Status at Discharge: Cognitive status at discharge: cognitively intact, Behavioral status at discharge: cooperative, Quality Metrics Clinical Quality Measures [ Cerebrovascular Accident { Contraindication to Antithrombotic: None; antithrombotic prescribed; Contraindication to Anticoagulation: Overlap treatment not indicated; Contraindication to Statin: None; Statin prescribed;}] Coding Level of Care Code 07791 Total time (in minutes) for Discharge: 55 Diagnoses Stroke determined by clinical assessment I63.9
[2024-05-07 12:44] LABS: Glucose Point of Care 355 mg/dL (70-110)
== END 2024-05-07 14:39 | disposition home or self-care (01) | DRG 65 ==
LOC: ER 17:46 → ER IP 18:10 → MEDSURG 20:18
PROVIDERS: Emergency Medicine; Admitting Provider Internal Medicine; Emergency Provider Family Medicine; PCP Family Medicine Adult Medicine; Visit Provider Internal Medicine
DX: I63.9 Cerebral infarction, unspecified (principal); G81.94 Hemiplegia, unspecified affecting left nondominant side; N39.0 Urinary tract infection, site not specified; R27.0 Ataxia, unspecified; F17.210 Nicotine dependence, cigarettes, uncomplicated; E11.9 Type 2 diabetes mellitus without complications; M06.9 Rheumatoid arthritis, unspecified; E78.5 Hyperlipidemia, unspecified; G47.33 Obstructive sleep apnea (adult) (pediatric); F41.1 Generalized anxiety disorder; E11.319 Type 2 diabetes mellitus with unspecified diabetic retinopathy without macular edema; J44.9 Chronic obstructive pulmonary disease, unspecified; G47.00 Insomnia, unspecified; M54.16 Radiculopathy, lumbar region; F43.10 Post-traumatic stress disorder, unspecified; K21.9 Gastro-esophageal reflux disease without esophagitis; Z79.02 Long term (current) use of antithrombotics/antiplatelets; Z79.82 Long term (current) use of aspirin; Z79.4 Long term (current) use of insulin
CPT/HCPCS: 36415; 36416; 70450; 70496; 70498; 80053; 80061; 80306; 81001; 82962; 83036; 85025; 85610; 85730; 87086; 92610; 93005; 96372; 96374; 96375; 97161; 97165; 99285; C8929; J1815; J1885

== ENCOUNTER 2024-05-14 11:20 | Outpatient (CLI) | payer MEDICAID, SELFPAY ==
--- NOTE | 2024-05-14 11:24 | XR_ITS ---
WS: [id number] LUMBAR SPINE: 3 VIEWS TECHNIQUE: AP, lateral and L5-S1 spot. 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 Similar to the prior exam. Disc spaces are narrowed . Endplate osteophytes. Bones are osteopenic. No definite compression fracture is identified. Fractur e may be easily obscured with this amount of overlapping bone with rotation. SI joints are symmetric bilaterally. No soft tissue abnormalities. Diffuse constipation. Scattered plaque in the abdominal aorta. XR/XR lumbar spine 2-3V* [id number] IMPRESSION: 1. 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 2. No acute fractures are identified. If pain continues additional more advanc ed imaging of the lumbar spine may be necessary to look for an occult fracture. CT or MRI may provide additional information.
[2024-05-14 12:31] LABS: Alanine Aminotransferase 27 U/L (0-33); Alkaline Phosphatase 96 U/L (35-105); Anion Gap 19.5 (5-19); Aspartate Amino Transferase 20 U/L (0-32); Blood Urea Nitrogen 14 mg/dL (6-20); Carbon Dioxide 21 mmol/L (22-29); Chloride 94 mmol/L (98-107); Free T4 Free Thyroxine 1.19 ng/dL (0.82-1.77); Globulin 2.8 g/dL (1.3-4.6); Glomerular Filtration Rate 105.8 mL/min (90-130); Glucose 420 mg/dL (65-115); Osmolality Calculated 288 mOsm/kg (285-295); Potassium 4.5 mmol/L (3.5-5.1); Sodium 130 mmol/L (136-145); T3 Free 2.5 PG/ML (2.0-4.4); Thyroid Stimulating Hormone 5.78 uIU/mL (0.27-4.20); Total Bilirubin 0.3 mg/dL (0.15-1.2); Total Protein 6.8 g/dL (6.6-8.7)
== END 2024-05-14 11:21 | disposition home or self-care (01) ==
LOC: LAB 11:21
PROVIDERS: PCP Family Medicine
DX: I63.9 Cerebral infarction, unspecified; E03.9 Hypothyroidism, unspecified; M41.86 Other forms of scoliosis, lumbar region; K59.00 Constipation, unspecified; M25.78 Osteophyte, vertebrae; W19.XXXA Unspecified fall, initial encounter
CPT/HCPCS: 36415; 72100; 80053; 84439; 84443; 84481

== ENCOUNTER 2024-06-10 12:25 | Outpatient (CLI) | payer MEDICAID, SELFPAY ==
--- NOTE | 2024-06-10 13:00 | MR_ITS ---
WS: [id number] MRI HEAD WITHOUT CONTRAST TECHNIQUE: Sagittal T1, T2 axial, T2 axial FLAIR, axial and coronal T1 images, axial susceptibility w eighted imaging, axial diffusion weighted images, and coronal T2 images were obtained. CLINICAL INFORMATION: I63.9 - Cerebral infarction, unspecified COMPARISON: MRI 11/21/2023 FINDINGS: Subacute to early chronic appearing infarct in the RIGHT thalamus measuring approximately 12 mm. This is new since the prior MRI 11/21/2023. No restricted diffusion to suggest acute ischemia. No hemosider in on the susceptibility weighted images. Mild small vessel changes. Prominent small vessel changes in the adilene. Normal posterior fossa. Normal vascular flow voids at the skull base. No extra-axial fluid collections. No mass or mass effect. Par anasal sinuses are well aerated. Mild mucosal thickening in the mastoid air cells. Normal optic chias m and pituitary infundibulum. MR/MR head wo con* [id number] IMPRESSION: 1. Subacute to early chronic infarct RIGHT thalamus measuring 12 mm. 2. No evidence of restricted diffusion to suggest acute ischemia. 3. Mild small vessel changes. No significant parenchymal volume loss. 4. Prominent small vessel changes in the adilene. 5. Bilateral mastoid effusions. 6. No hemosiderin on the susceptibly weighted images.
== END 2024-06-10 12:26 | disposition home or self-care (01) ==
LOC: RAD 12:27
PROVIDERS: PCP Family Medicine; Visit Provider Psychiatry & Neurology Neurology
DX: I63.9 Cerebral infarction, unspecified (principal); R93.89 Abnormal findings on diagnostic imaging of other specified body structures; H74.8X3 Other specified disorders of middle ear and mastoid, bilateral
CPT/HCPCS: 70551

== ENCOUNTER 2024-07-08 18:22 | Observation (INO) | payer MEDICAID, SELFPAY ==
[2024-07-08 18:25] VITALS: BP 179/101; PULSE 108; RESP 18; TEMP 36.6; O2SAT 99
--- NOTE | 2024-07-08 18:57 | W.ED.ANXIETY ---
HPI - Anxiety General: Chief Complaint: Anxiety Stated Complaint: Anxiety Time Seen by Provider: 07/08/24 18:28 History of Present Illness: 48-year-old female with a history of recent stroke who presents emergency room with anxiety. She had a recent stroke and she has been falling and is so weak she can barely get to the bathroom. She has no help. She is very tearful and crying. She feels like she needs to be admitted to a [place] [facility] that she cannot take care of herself at home any longer. r she has esidual sensory deficit, mild weakness left upper and lower extremity, mild dysmetria. Related Data Home Medications ?Medication ?Instructions ?Recorded ?Confirmed aspirin 325 mg tablet 325 mg PO DAILY 11/15/23 06/03/24 insulin aspart U-100 100 unit/mL See Rx Instructions .Route .COMPLEX 05/06/24 06/03/24 (3 mL) subcutaneous pen (Novolog FlexPen U-100 Insulin aspart) Previous Rx's ?Medication ?Instructions ?Recorded Diabetic Shoes with 3 inserts #1 ea 05/05/22 lancets 30 gauge (OneTouch Delica #100 ea 05/05/22 Plus Lancet) blood-glucose meter (Accu-Chek #1 ea 11/08/22 Guide Glucose Meter) insulin glargine 100 unit/mL (3 22 unit (0.22 mL) SUBCUT QAM #15 mL 06/26/23 mL) subcutaneous pen (Lantus Solostar U-100 Insulin) pen needle, diabetic 32 gauge x #50 ea 06/27/23/32 (1st Tier Unifine Pentips) albuterol sulfate 90 mcg/actuation 2 puff inhalation Q6H PRN 07/26/23 aerosol inhaler shortness of breath or wheezing #8.5 grams levothyroxine 75 mcg tablet 75 mcg PO DAILY low thyroid #90 08/11/23 tabs hydroxyzine HCl 25 mg tablet 25 mg PO TID PRN itching #90 tabs 10/31/23 blood-glucose meter,continuous #1 ea 02/05/24 (FreeStyle Janelle 3 [place]) blood-glucose sensor (FreeStyle #6 ea 02/05/24 Janelle 3 Sensor device) Diabetic Shoes with custom insoles #1 ea 02/20/24 metoprolol tartrate 25 mg tablet 25 mg PO BID tachycardia #60 tabs 03/07/24 blood-glucose sensor (FreeStyle #6 ea 04/25/24 Janelle 3 Plus Sensor device) cetirizine 10 mg tablet (Zyrtec) 10 mg PO DAILY PRN allergy 04/26/24 symptoms #60 tabs nicotine (polacrilex) 4 mg buccal 4 mg mucous membrane Q2H PRN 05/07/24 lozenge Nicotine Cravings #180 ea nicotine 14 mg/24 hr daily 1 patch transdermal Q24H PRN 05/07/24 transdermal patch Withdrawal #90 ea atorvastatin 40 mg tablet 40 mg PO DAILY #30 tabs 05/14/24 losartan 25 mg tablet 25 mg PO DAILY #30 tabs 05/14/24 prednisone 20 mg tablet 20 mg PO DAILY #15 tabs 05/30/24 clopidogrel 75 mg tablet (Plavix) 75 mg PO DAILY #30 tabs 06/03/24 omeprazole 40 mg capsule,delayed See Rx Instructions .Route 06/03/24 release .COMPLEX #30 caps blood sugar diagnostic (OneTouch #100 ea 06/06/24 Ultra Test strips) fluoxetine 20 mg capsule (Prozac) 20 mg PO DAILY #30 caps 06/10/24 Allergies Allergy/AdvReac Type Severity Reaction Status Date / Time amoxicillin Allergy Unknown Verified 06/03/24 09:14 Review of Systems Narrative: Constitutional symptoms: Negative except as documented in HPI. Skin symptoms: Negative except as documented in HPI. Eye symptoms: Negative except as documented in HPI. ENMT symptoms: Negative except as documented in HPI. Respiratory symptoms: Negative except as documented in HPI. Cardiovascular symptoms: Negative except as documented in HPI. Gastrointestinal symptoms: Negative except as documented in HPI. Genitourinary symptoms: Negative except as documented in HPI. Musculoskeletal symptoms: Negative except as documented in HPI. Neurologic symptoms: Negative except as documented in HPI. Psychiatric symptoms: Negative except as documented in HPI. Endocrine symptoms: Negative except as documented in HPI. PFS ED PFSH: Medical History Supraventricular tachycardia (~04/2020) identified during ED visit 04/2020, treated with 6mg adenosine with conversion to sinus Generalized anxiety disorder with panic attacks Smokers' cough Acute pancreatitis Unintentional weight loss of more than 10% body weight within 6 months Diabetic macular edema Diabetic retinopathy, nonproliferative, severe Polysubstance (including opioids) dependence w/o physiol dependence smoker, severe cannabis, Opioid, Methamphetamines Insomnia Smoker COPD (chronic obstructive pulmonary disease) with emphysema Scoliosis associated with other condition Lumbar disc disease with radiculopathy Hemochromatosis carrier Diabetes type 2, uncontrolled PTSD (post-traumatic stress disorder) History of rheumatoid arthritis Osteoarthritis involving multiple joints on both sides of body GERD (gastroesophageal reflux disease) JOSE (obstructive sleep apnea) per sleep study 2010, CPAP of 13 recommended at that time, no longer with machine Dyslipidemia Hypothyroidism Surgical History Hx of cataract surgery bilateral eye History of umbilical hernia repair (~2011) History of incision and drainage (~2013) right upper extremity and R lower extremity History of tubal ligation History of hysterectomy (~2011) also Kimberly urethral plication Family History Father Diabetes Mother Diabetes Grandfather Postsurgical cardiac pacemaker in situ Denies family history of Stroke Social History Smoking and tobacco/nicotine status: current every day tobacco/nicotine user cigarettes Packs smoked per day: 0.5 Years cigarettes smoked: 33 Quit status (tobacco/nicotine): has tried quititng Number of times tried to quit tobacco: 5 Second hand smoke exposure: Yes Alcohol intake: former Substance/Drug Use: former Date of last use: IV drug use 2019 Caregiver/support person: No Lives independently: Yes Household members: spouse Housing: House Marital status: Life Partner Number of children: 2 Number of grandchildren: 0 Highest education level completed: High School Graduate service: No Current occupational status: unemployed Pets and animals: Yes Pets & animals: dog(s) Do you think of yourself as: Straight/Heterosexual Current gender identity: Female Sirena/Mandaeism: Latter-Day Physical Exam Narrative: EXAM NARRATIVE: General: Alert, no acute distress. Skin: Warm, dry. Head: Normocephalic, atraumatic. Neck: Supple, trachea midline. Eye: Extraocular movements are intact. Ears, nose, mouth and throat: mucosa moist. Cardiovascular: Regular, Normal peripheral perfusion. Respiratory: Lungs are clear to auscultation, respirations are non-labored, breath sounds are equal, Symmetrical chest wall expansion. Gastrointestinal: Soft, Nontender, Non distended Musculoskeletal: Normal ROM, no deformity. Neurological: Alert and oriented, patient has some mild right-sided weakness, also some balance and gait issues she says. Psychiatric: Cooperative, appropriate mood & affect. Course Vital Signs: Vital signs: Vital Signs Temperature 97.9 F 07/08/24 18:25 Pulse Rate 108 H 07/08/24 18:25 Respiratory Rate 18 07/08/24 18:25 Blood Pressure 179/101 07/08/24 18:25 Pulse Oximetry 99 07/08/24 18:25 Oxygen Delivery Me thod Room Air 07/08/24 18:25 MDM - Anxiety Medical Decision Making Consultation: I spoke with Dr. Sanford who is on-call for the hospitalist service who agrees to admission to observation for case management consultation and [place] [facility]. Assessment and plan: Stroke Multiple falls Debility Weakness Depression and anxiety ?Patient was given some Ativan here in the emergency room. Being admitted for [place] [facility] [place] -I discussed the patient with the hospitalist on-call who is admitting the patient. - Discussed findings and plan with patient. Answered any questions. - Evaluation and treatment of this problem were appropriate in the emergency setting No radiology studies performed this visit Discharge Plan Discharge Patient Disposition: Placed in Observation Clinical Impression: Stroke, Weakness, Multiple falls, Anxiety, Depression, Debility Coding Level of Care Code ED Personal Support Worker for Esperanza Hernandez
[2024-07-08] MEDS: LORazepam 2 mg/mL INJ 1 mL IM (19:45)
[2024-07-08 19:46] VITALS: BP 121/81; PULSE 101; RESP 16; O2SAT 97
[2024-07-08 19:58] LABS: Basophils # 0.1 10^3/uL (0.0-0.1); Basophils % 0.8 %; Eosinophils # 0.1 10^3/uL (0.0-0.8); Eosinophils % 0.8 %; Hematocrit 46.5 % (36-47); Lymphocytes # 2.7 10^3/uL (0.8-4.8); Lymphocytes % 24.9 %; Mean Corpuscular HGB Conc 36.1 g/dL (30-55); Mean Corpuscular Hemoglobin 29.8 pg (27-33); Mean Corpuscular Volume 82.6 fl (85-98); Mean Platelet Volume 9.2 fL (7.4-10.4); Monocytes # 0.7 10^3/uL (0.2-0.9); Monocytes % 6.4 %; Neutrophils # 7.21 10^3/uL (1.8-7.7); Neutrophils % 66.5 %; Nucleated Red Blood Cells % 0 %; Platelet Count 348 10^3/cmm (157-399); Red Blood Count 5.63 10^6/uL (3.85-5.65); Red Cell Distribution Width 11.8 % (12.1-15.1); White Blood Count 10.84 10^3/uL (3.29-11.43)
--- NOTE | 2024-07-08 20:07 | PM.HP ---
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 She is stating her dizziness is related to change of head position, she describes dizziness as room spinning in front of her eyes. No recent fever, chest pain, syncope or seizure related activity. Workup in the ER revealed blood glucose 600, she was given insulin regular 11 units along Humalog 20 units, she was also given IV fluid bolus clinically patient looks dry She does not have any new focal deficit, she does have very mild weakness of left side Patient is stating that her left side is completely numb since her stroke, her face, left arm and left leg feel heavy to her with numbness however in terms of motor skills she has been able to eat use without any difficulty, no recent aspiration events, stating that sometimes left side of her body would just completely give up that contributes towards her falls and that so she is not able to work, she had an appointment to see her PCP to get clearance to go back to work which was tomorrow Review of Systems Const: Denies: fever(s) Eyes: Denies: change in vision ENMT: Denies: throat pain Card: Denies: chest pain Resp: Denies: dyspnea GI: Denies: abdominal pain Medications/Allergies Home Medications ?Medication ?Instructions ?Recorded ?Confirmed ?Last Taken ?Type Diabetic Shoes with 3 inserts #1 ea 05/05/22 06/03/24 Unknown Rx lancets 30 gauge (OneTouch Delica #100 ea 05/05/22 06/03/24 Unknown Rx Plus Lancet) blood-glucose meter (Accu-Chek #1 ea 11/08/22 06/03/24 Unknown Rx Guide Glucose Meter) insulin glargine 100 unit/mL (3 22 unit (0.22 mL) SUBCUT QAM #15 mL 06/26/23 06/03/24 10/26/23 Rx mL) subcutaneous pen (Lantus Solostar U-100 Insulin) pen needle, diabetic 32 gauge x #50 ea 06/27/23 06/03/24 Unknown Rx 32 (1st Tier Unifine Pentips) albuterol sulfate 90 mcg/actuation 2 puff inhalation Q6H PRN 07/26/23 06/03/24 Unknown Rx aerosol inhaler shortness of breath or wheezing #8.5 grams levothyroxine 75 mcg tablet 75 mcg PO DAILY low thyroid #90 08/11/23 06/03/24 10/26/23 Rx tabs hydroxyzine HCl 25 mg tablet 25 mg PO TID PRN itching #90 tabs 10/31/23 06/03/24 Unknown Rx aspirin 325 mg tablet 325 mg PO DAILY 11/15/23 06/03/24 05/06/24 History blood-glucose meter,continuous #1 ea 02/05/24 06/03/24 Unknown Rx (FreeStyle Janelle 3 [place]) blood-glucose sensor (FreeStyle #6 ea 02/05/24 06/03/24 Unknown Rx Janelle 3 Sensor device) Diabetic Shoes with custom insoles #1 ea 02/20/24 06/03/24 Unknown Rx metoprolol tartrate 25 mg tablet 25 mg PO BID tachycardia #60 tabs 03/07/24 06/03/24 Unknown Rx blood-glucose sensor (FreeStyle #6 ea 04/25/24 06/03/24 Unknown Rx Jnaelle 3 Plus Sensor device) cetirizine 10 mg tablet (Zyrtec) 10 mg PO DAILY PRN allergy 04/26/24 06/03/24 05/06/24 Rx symptoms #60 tabs insulin aspart U-100 100 unit/mL See Rx Instructions .Route .COMPLEX 05/06/24 06/03/24 Unknown History (3 mL) subcutaneous pen (Novolog FlexPen U-100 Insulin aspart) nicotine (polacrilex) 4 mg buccal 4 mg mucous membrane Q2H PRN 05/07/24 06/03/24 Unknown Rx lozenge Nicotine Cravings #180 ea nicotine 14 mg/24 hr daily 1 patch transdermal Q24H PRN 05/07/24 06/03/24 Unknown Rx transdermal patch Withdrawal #90 ea atorvastatin 40 mg tablet 40 mg PO DAILY #30 tabs 05/14/24 06/03/24 Unknown Rx losartan 25 mg tablet 25 mg PO DAILY #30 tabs 05/14/24 06/03/24 Unknown Rx prednisone 20 mg tablet 20 mg PO DAILY #15 tabs 05/30/24 06/03/24 Unknown Rx clopidogrel 75 mg tablet (Plavix) 75 mg PO DAILY #30 tabs 06/03/24 06/03/24 Unknown Rx omeprazole 40 mg capsule,delayed See Rx Instructions .Route 06/03/24 Unknown Rx release .COMPLEX #30 caps blood sugar diagnostic (OneTouch #100 ea 06/06/24 Unknown Rx Ultra Test strips) fluoxetine 20 mg capsule (Prozac) 20 mg PO DAILY #30 caps 06/10/24 Unknown Rx Allergies Allergy/AdvReac Type Severity Reaction Status Date / Time amoxicillin Allergy Unknown Verified 06/03/24 09:14 PFSH Acute PFSH: Medical History Supraventricular tachycardia (~04/2020) identified during ED visit 04/2020, treated with 6mg adenosine with conversion to sinus Generalized anxiety disorder with panic attacks Smokers' cough Acute pancreatitis Unintentional weight loss of more than 10% body weight within 6 months Diabetic macular edema Diabetic retinopathy, nonproliferative, severe Polysubstance (including opioids) dependence w/o physiol dependence smoker, severe cannabis, Opioid, Methamphetamines Insomnia Smoker COPD (chronic obstructive pulmonary disease) with emphysema Scoliosis associated with other condition Lumbar disc disease with radiculopathy Hemochromatosis carrier Diabetes type 2, uncontrolled PTSD (post-traumatic stress disorder) History of rheumatoid arthritis Osteoarthritis involving multiple joints on both sides of body GERD (gastroesophageal reflux disease) JOSE (obstructive sleep apnea) per sleep study 2010, CPAP of 13 recommended at that time, no longer with machine Dyslipidemia Hypothyroidism Surgical History Hx of cataract surgery bilateral eye History of umbilical hernia repair (~2011) History of incision and drainage (~2013) right upper extremity and R lower extremity History of tubal ligation History of hysterectomy (~2011) also Kimberly urethral plication Family History Father Diabetes Mother Diabetes Grandfather Postsurgical cardiac pacemaker in situ Denies family history of Stroke Social History Smoking and tobacco/nicotine status: current every day tobacco/nicotine user cigarettes Packs smoked per day: 0.5 Years cigarettes smoked: 33 Quit status (tobacco/nicotine): has tried quititng Number of times tried to quit tobacco: 5 Second hand smoke exposure: Yes Alcohol intake: former Substance/Drug Use: former Date of last use: IV drug use - 2019 Caregiver/support person: No Lives independently: Yes Household members: spouse Housing: House Marital status: Life Partner Number of children: 2 Number of grandchildren: 0 Highest education level completed: High School Graduate service: No Current occupational status: unemployed Pets and animals: Yes Pets & animals: dog(s) Do you think of yourself as: Straight/Heterosexual Current gender identity: Female Sirena/Restorationist: Orthodoxy Vitals/I&O/Wt Last Vital Signs Temp 97.9 F 07/08/24 18:25 Pulse 101 H 07/08/24 19:46 Resp 16 07/08/24 19:46 BP 121/81 07/08/24 19:46 Pulse Ox 97 07/08/24 19:46 O2 Del Method Room Air 07/08/24 18:25 Weight last 48 hrs Weight 70.307 kg Physical Exam Narrative: Patient is awake and alert Chronic left-sided weakness No signs of cauda equina GCS 15 No active focal deficit other than chronic left-sided weakness Emotionally labile S1, S2 Currently on room air Nonfocal neuroexam Hemodynamic stable Clinically looks dehydrated Abdomen soft No audible stridor or wheezing Data 07/08/24 19:32 07/08/24 19:32 A&P Assessment and plan (1) Depression: (2) Major depressive disorder, recurrent, moderate: (3) Anxiety: (4) Generalized anxiety disorder with panic attacks: (5) Diabetes type 2, uncontrolled: Qualifiers: Glycemic state: with hyperglycemia Qualified Code(s): E11.65 - Type 2 diabetes mellitus with hyperglycemia (6) Stroke: (7) Smokers' cough: (8) JOSE (obstructive sleep apnea): (9) Insomnia: Qualifiers: Insomnia type: primary Qualified Code(s): F51.01 - Primary insomnia (10) Multiple falls: (11) Debility: (12) Weakness: Plan Generalized weakness and fatigue Recent stroke Patient is asking for home health services Will request another PT assessment Recently she had hemoglobin A1c and lipid panel checked I will continue her dual antiplatelet therapy along statins Uncontrolled type 2 diabetes She probably has component of diabetic peripheral neuropathy Hyperglycemia without DKA She has been given regular IV insulin along Humalog which has been brought her sugar down in the 350s Given IV fluid bolus as well Depression without any signs of homicidal or suicidal ideation: Patient has been on Prozac 20 mg daily Will need behavioral health services referral outpatient Patient does not want to go to [place] [facility] at this point stating that she would like to get help from home health services to assist her with medications and light physical therapy Full code Consistent carb diet Repeat B12 level PDMP PDMP Reviewed: Not Reviewed Attestations Medical Necessity Statement*: Anticipating discharge within 48 hours Diagnoses Depression F32.A Major depressive disorder, recurrent, moderate F33.1 Anxiety F41.9 Generalized anxiety disorder with panic attacks F41.1; F41.0 Uncontrolled type 2 diabetes mellitus with hyperglycemia E11.65 Glycemic state: with hyperglycemia Stroke I63.9 Smokers' cough J41.0 JOSE (obstructive sleep apnea) G47.33 Primary insomnia F51.01 Insomnia type: primary Multiple falls R29.6 Debility R53.81 Weakness R53.1
[2024-07-08 20:14] LABS: Alanine Aminotransferase 23 U/L (0-33); Albumin Level 4.1 g/dL (3.5-5.2); Alkaline Phosphatase 123 U/L (35-105); Anion Gap 19.5 (5-19); Aspartate Amino Transferase 15 U/L (0-32); Blood Urea Nitrogen 14 mg/dL (6-20); Calcium 9.7 mg/dL (8.5-10.5); Carbon Dioxide 25 mmol/L (22-29); Chloride 82 mmol/L (98-107); Creatinine Clr Calc Pharmacy 90.4078; Globulin 3.3 g/dL (1.3-4.6); Glomerular Filtration Rate 88.6 mL/min (90-130); Osmolality Calculated 287 mOsm/kg (285-295); Potassium 4.5 mmol/L (3.5-5.1); Sodium 122 mmol/L (136-145); Total Bilirubin 0.6 mg/dL (0.15-1.2); Total Protein 7.4 g/dL (6.6-8.7)
[2024-07-08 20:15] LABS: Glucose 675 mg/dL (65-115)
[2024-07-08 20:47] LABS: Ketone (Acetest) Serum Negative (Negative)
[2024-07-08 20:59] LABS: ABG PCO2 44.8 mmHg (35-45); ABG PH Result 7.41 (7.35-7.45); Alveolar-Arterial Oxygen Gradi 3.6 mmHg (5-10); Arterial Blood Gas Hematocrit 52.8 % (37-47); Blood Gas Operator Identificat BUSJA; Blood Gas Sample Site Brachial, right; Blood Gas Sample Type Arterial; Carboxyhemoglobin 0.7 %THgb (0.4-20.1); HCO3 ABG 28.4 mmol/L (22-26); HGB O2 Sat 90.3 % (95-100); Ionized Calcium Level - ABG 1.2 mmol/L (1.1-1.4); Methemoglobin 0.9 % (0.4-1.5); Oxygen Device ROOM AIR; Oxygen Saturation ABG 91.9; PO2 ABG 67.5 mmHg (80.0-100.0); PO2 FiO2 Ratio Arterial Blood 321; Potassium Level - ABG 4.3 mmol/L (3.5-5.0); Total Hemoglobin 17.2 g/dL (12-16)
[2024-07-08 21:01] LABS: D Dimer <= 0.27 ug/mLFEU (0-0.59)
[2024-07-08 21:19] LABS: Estmated Average Glucose 309; Hemoglobin A1C 12.4 % (4.0-6.0)
[2024-07-08] MEDS: insulin regular-human 100 units/1 mL 11 UNIT IVP (21:21)
[2024-07-08 21:23] LABS: Glucose Point of Care 544 mg/dL (70-110)
[2024-07-08 21:24] VITALS: BP 111/76; PULSE 102; O2SAT 95
[2024-07-08] MEDS: sodium chloride 0.9% 1,000 ML 999 ML IV (21:28)
[2024-07-08] MEDS: enoxaparin 40 mg/0.4 mL Syringe SUBCUT (21:28)
[2024-07-08] MEDS: insulin lispro 100 unit/1 mL 20 UNIT SUBCUT (22:09)
[2024-07-08 22:26] LABS: Glucose Point of Care 371 mg/dL (70-110)
[2024-07-08 23:07] VITALS: BP 117/79; PULSE 100; RESP 16; O2SAT 97
[2024-07-09] VITALS (9 sets, daily range): BP systolic 103–157; BP diastolic 66–83; PULSE 86–124; RESP 16–20; TEMP 36.1–36.8; O2SAT 93–99; BMI 27.4
[2024-07-09 01:48] LABS: Vitamin B12 832 pg/mL (232-1245)
[2024-07-09 02:00] LABS: Bilirubin Urine Negative (Negative); Blood Urine Trace (Negative); Glucose Urine UA 3+ (Normal); Ketones Urine Negative (Negative); Leukocyte Esterase Urine Trace (Negative); Nitrate Urine Negative (Negative); Protein Urine 1+ (Negative); Urine Appearance Turbid (CLEAR); Urine Color Yellow (Yellow); Urobilinogen Urine 0.2 mg/dL (Negative); pH Urine 5.5 (5-7)
[2024-07-09 02:05] LABS: Bacteria Urine 4+ /hpf; RBC Urine 21-50 /hpf (0-2); Squamous Epithelial Cell Urine 21-50 /hpf (0-5); WBC Urine >100 /hpf (0-5)
[2024-07-09 02:30] LABS: Specific Gravity, Urine 1.033 (1.005-1.030); UA Slide Review UA Slide Review Perf
[2024-07-09 02:31] LABS: Add Urine Culture? No
[2024-07-09 05:03] LABS: Anion Gap 18.9 (5-19); Blood Urea Nitrogen 15 mg/dL (6-20); Calcium 9.3 mg/dL (8.5-10.5); Carbon Dioxide 25 mmol/L (22-29); Chloride 92 mmol/L (98-107); Creatinine Clr Calc Pharmacy 90.4078; Glomerular Filtration Rate 88.6 mL/min (90-130); Glucose 279 mg/dL (65-115); Magnesium 1.7 mg/dL (1.7-2.3); Osmolality Calculated 285 mOsm/kg (285-295); Potassium 3.9 mmol/L (3.5-5.1); Sodium 132 mmol/L (136-145)
[2024-07-09 06:08] LABS: Glucose Point of Care 320 mg/dL (70-110)
[2024-07-09] MEDS: insulin glargine 100 units/1 mL 22 UNIT SUBCUT (06:34)
[2024-07-09] MEDS: losartan 50 mg Tablet 25 MG PO (08:29)
[2024-07-09] MEDS: metoprolol tartrate 25 mg Tablet PO (08:29)
[2024-07-09] MEDS: fluoxetine 20 mg Capsule PO (08:29)
[2024-07-09] MEDS: aspirin 325 mg Tablet PO (08:30)
[2024-07-09] MEDS: clopidogrel 75 mg Tablet PO (08:30)
[2024-07-09] MEDS: sennosides-docusate Tablet 1 TAB PO (08:30)
[2024-07-09] MEDS: insulin lispro 100 unit/1 mL SUBCUT ×3 (08:30→17:17)
[2024-07-09] MEDS: levothyroxine 75 mcg Tablet PO (08:30)
[2024-07-09] MEDS: atorvastatin 40 mg Tablet PO (08:30)
--- NOTE | 2024-07-09 09:23 | US_ITS ---
WS: [id number] RENAL ULTRASOUND HISTORY: uti COMPARISON: None available. TECHNIQUE: 2-D and color Doppler imaging of the kidney submitted. Right kidney: 9.1 cm x 6.7 cm x 6.4 cm. Cortex: 1.1 cm Poorly visualized RIGHT kidney. No hydronephrosis or atrophy identified. Left kidney: 8.8 cm x 4.7 cm x 4.1 cm. Cortex: 1.1 cm Low normal size. No hydronephrosis or mass. Aorta: Normal. Urinary Bladder: Nondistended. US/US renal BI* [id number] IMPRESSION: 1. Poorly visualized RIGHT kidney. No hydronephrosis identified. Mass would be difficult to exclude. 2. Unremarkable LEFT kidney.
--- NOTE | 2024-07-09 09:25 | CT_ITS ---
WS: [id number] CT HEAD NONCONTRAST HISTORY: weakness TECHNIQUE: Contiguous axial imaging performed through the brain. Bone and soft tissue windows. Sagittal and coronal reformats reviewed. All CT scans at [facility] use at least one of these dose optimization techniques: automated exposure control; mA and/or kV adjustment per patient size (includes targeted exams where dose is matched to clinical indication); or iterative reconstruction. DLP: 943.58 mGy.cm COMPARISON: MRI 06/10/2024, CT 05/06/2024 No acute intracranial hemorrhage, midline shift or mass effect. No atrophy or prior infarcts or herniation. Remote lacunar infarct involving the RIGHT thalamus which may extend into the internal capsule. No additional infarct. This infarct was described as a subacute to prior MRI brain from 06/10/2024. Ventricles: Normal size with no hydrocephalus. No inferior displacement of the cerebellar tonsils. Paranasal sinuses: As visualized are clear. Mastoid air cells: Well pneumatized. Calvarium and scalp: Skull is intact with no soft tissue edema or swelling. CT/CT head wo con* [id number] IMPRESSION: 1. No acute intracranial hemorrhage or edema. 2. Remote lacunar infarct RIGHT thalamus which may extend into the internal ca psule.
--- NOTE | 2024-07-09 09:36 | PC.CHAP ---
Pastoral Care Encounter/Spiritual Assessment Type of Contact [] Declined dado operator visit [] Patient/Family/Request visit [] Outpatient visit [] Follow-up visit [] Physician referral [] Code/Alert [] Routine visit [] Staff referral [] Actively dying [] Patient sleeping [] Family support [] [] Out of room [] Palliative care [] [x] Receiving care in room [] Pre-surgical visit [] Trauma [] Long length of stay [] ICU visit [] Other: Relational/Emotional Strength [] Patient feels connected with others/family/visitors/staff [] Distress [] Loneliness/isolation [] Abandonment Spirituality of Patient [] Person of Sirena [] Attends Sabianism of their Sirena [] Believes in Prayer [] Reads Bible or Evangelical materials [] There are Spiritual issues to be addressed Frame Stylist Interventions [] Prayer [] Active listening [] Non-anxious presence [] Spiritual/emotional support [] Crisis/trauma care [] Spiritual counseling [] Bereavement support [] Provided bereavement packet [] Provided Bible/devotional materials [] Provided toy/stuffed animal, coloring book to patient or family member [] Provided Communion [] Anointing/Herald [] Salvation [] Completed spiritual assessment [] Other: Impact on Illness or Injury [] Angry [] Fearful [] Anxious [] Often cries [] Exhaustion [] Unable to work [] Unable to attend mormonism [] Unable to walk/stand [] Unable to read [] Unable to drive [] Unable to eat/drink [] Unable to sleep [] Unable to be with family [] Patient intubated [] Other: Summary Time spent with patient
[2024-07-09 11:14] LABS: Glucose Point of Care 423 mg/dL (70-110)
[2024-07-09] MEDS: acetaminophen 500 mg Tablet PO (12:06)
[2024-07-09] MEDS: cefTRIAXone 1,000 mg SDV 1000 MG IVP (12:08)
--- NOTE | 2024-07-09 16:00 | P.PN_ITS ---
Subjective 2 Subjective: Patient was seen this morning she is quite tearful, tells me that she does not have a lot of help at home, her health has been does not help her with her day-to-day activities, she really wants to return to her original level of functioning before her stroke, but continues to have weakness numbness, difficulty ambulating, she is thinks that she has plateaued in terms of how better if she can get, she does not know how she is going to return back to work, denies any falls, no injuries, she is taking her medication as prescribed, she does report feeling down and depressed, but denies any suicidal ideation, denies homicidal ideation Vitals/I&O/Wt Last Vital Signs Temp 97.0 F L 07/09/24 11:40 Pulse 121 H 07/09/24 11:40 Resp 20 H 07/09/24 11:40 BP 157/83 07/09/24 11:40 Pulse Ox 99 07/09/24 11:40 O2 Del Method Room Air 07/09/24 11:40 07/09/24 07/09/24 07/09/24 06:59 14:59 22:59 Intake Total 1480 / 1480 Balance 1480 / 1480 Weight last 48 hrs Weight 70.307 kg Weight 70.307 kg Physical Exam 2 Const: COMMON NORMALS: no acute distress and patient oriented x3 Resp: COMMON NORMALS: normal respiratory effort, No retractions, No use of accessory muscles and clear to auscultation bilaterally AUSCULTATION: clear to auscultation bilaterally Cardio: COMMON NORMALS: regular rate, regular rhythm, S1 normal heart sound present and S2 normal heart sound present RATE: regular rate RHYTHM: r egular rhythm HEART SOUNDS: S1 normal heart sound present and S2 normal heart sound present GI: COMMON NORMALS: Normal to inspection, nondistended, normoactive bowel sounds present and non-tender Extremity: COMMON NORMALS: no pedal edema NARRATIVE EXTREMITY EXAM: Left upper left lower extremity weakness Neuro: COMMON NORMALS: patient oriented x3 Psych: COMMON NORMALS: mental status grossly normal Data 07/08/24 19:32 07/09/24 04:37 A&P Assessment and plan (1) Depression: (2) Major depressive disorder, recurrent, moderate: (3) Anxiety: (4) Generalized anxiety disorder with panic attacks: (5) Diabetes type 2, uncontrolled: Qualifiers: Glycemic state: with hyperglycemia Qualified Code(s): E11.65 - Type 2 diabetes mellitus with hyperglycemia (6) Stroke: (7) Smokers' cough: (8) JOSE (obstructive sleep apnea): (9) Insomnia: Qualifiers: Insomnia type: primary Qualified Code(s): F51.01 - Primary insomnia (10) Multiple falls: (11) Debility: (12) Weakness: Plan Generalized weakness and fatigue -Component related to UTI, started on Rocephin, renal ultrasound -Component related to depression anxiety, psychiatry consulted Recent stroke, with residual left-sided weakness, repeat head CT Monitor as inpatient PT OT Continue aspirin, Plavix, statin Continue fluoxetine Uncontrolled type 2 diabetes Hyperglycemia without DKA Change to high-dose sliding scale, continue Lantus Depression without any signs of homicidal or suicidal ideation: Patient has been on Prozac 20 mg daily Psychiatry consulted PT OT Full code Consistent carb diet PDMP PDMP Reviewed: Not Reviewed Attestations 2 Medical Necessity Statement*: Patient requires hospitalization for generalized weakness, and fatigue, uncontrolled type 2 diabetes, CVA, UTI Diagnoses Depression F32.A Major depressive disorder, recurrent, moderate F33.1 Anxiety F41.9 Generalized anxiety disorder with panic attacks F41.1; F41.0 Uncontrolled type 2 diabetes mellitus with hyperglycemia E11.65 Glycemic state: with hyperglycemia Stroke I63.9 Smokers' cough J41.0 JOSE (obstructive sleep apnea) G47.33 Primary insomnia F51.01 Insomnia type: primary Multiple falls R29.6 Debility R53.81 Weakness R53.1
[2024-07-09 16:40] LABS: Glucose Point of Care 218 mg/dL (70-110)
[2024-07-09 20:49] LABS: Glucose Point of Care 326 mg/dL (70-110)
[2024-07-09] MEDS: ALPRAZolam 0.5 mg Tablet PO (22:14)
[2024-07-09] MEDS: morphine 4 mg/mL SDV 1 mL 2 MG IVP (22:14)
[2024-07-09] MEDS: enoxaparin 40 mg/0.4 mL Syringe SUBCUT (22:14)
[2024-07-10 04:00] VITALS: BP 101/65; PULSE 89; RESP 17; TEMP 36.5; O2SAT 96
[2024-07-10 05:22] LABS: Basophils # 0.1 10^3/uL (0.0-0.1); Eosinophils # 0.2 10^3/uL (0.0-0.8); Eosinophils % 1.8 %; Hematocrit 39.8 % (36-47); Lymphocytes # 3.7 10^3/uL (0.8-4.8); Lymphocytes % 41.2 %; Mean Corpuscular HGB Conc 34.7 g/dL (30-55); Mean Corpuscular Hemoglobin 29.2 pg (27-33); Mean Corpuscular Volume 84.1 fl (85-98); Mean Platelet Volume 9.4 fL (7.4-10.4); Monocytes # 0.7 10^3/uL (0.2-0.9); Monocytes % 8.1 %; Neutrophils # 4.21 10^3/uL (1.8-7.7); Neutrophils % 47.6 %; Nucleated Red Blood Cells % 0 %; Platelet Count 299 10^3/cmm (157-399); Red Blood Count 4.73 10^6/uL (3.85-5.65); Red Cell Distribution Width 11.9 % (12.1-15.1); White Blood Count 8.86 10^3/uL (3.29-11.43)
[2024-07-10 05:44] LABS: Alanine Aminotransferase 16 U/L (0-33); Albumin Level 3.4 g/dL (3.5-5.2); Alkaline Phosphatase 104 U/L (35-105); Anion Gap 18.2 (5-19); Aspartate Amino Transferase 11 U/L (0-32); Blood Urea Nitrogen 18 mg/dL (6-20); Carbon Dioxide 24 mmol/L (22-29); Chloride 91 mmol/L (98-107); Creatinine Clr Calc Pharmacy 90.7108; Globulin 2.5 g/dL (1.3-4.6); Glomerular Filtration Rate 88.6 mL/min (90-130); Glucose 464 mg/dL (65-115); Magnesium 1.7 mg/dL (1.7-2.3); Osmolality Calculated 290 mOsm/kg (285-295); Phosphorus 3.6 mg/dL (2.5-4.5); Potassium 4.2 mmol/L (3.5-5.1); Sodium 129 mmol/L (136-145); Total Bilirubin 0.2 mg/dL (0.15-1.2); Total Protein 5.9 g/dL (6.6-8.7)
[2024-07-10] MEDS: insulin glargine 100 units/1 mL 22 UNIT SUBCUT (06:13)
[2024-07-10 06:46] LABS: Glucose Point of Care 409 mg/dL (70-110)
[2024-07-10 08:00] VITALS: BP 121/84; PULSE 109; RESP 18; TEMP 36.5; O2SAT 97
[2024-07-10] MEDS: sennosides-docusate Tablet 1 TAB PO (09:27)
[2024-07-10] MEDS: atorvastatin 40 mg Tablet PO (09:27)
[2024-07-10] MEDS: fluoxetine 20 mg Capsule PO (09:27)
[2024-07-10] MEDS: clopidogrel 75 mg Tablet PO (09:27)
[2024-07-10] MEDS: levothyroxine 75 mcg Tablet PO (09:27)
[2024-07-10] MEDS: aspirin 325 mg Tablet PO (09:27)
[2024-07-10] MEDS: insulin lispro 100 unit/1 mL SUBCUT ×3 (09:28→17:22)
[2024-07-10 11:39] LABS: Glucose Point of Care 403 mg/dL (70-110)
[2024-07-10 11:51] VITALS: BP 121/84
[2024-07-10] MEDS: metoprolol tartrate 25 mg Tablet PO ×2 (11:51→17:22)
[2024-07-10] MEDS: losartan 50 mg Tablet 25 MG PO (11:51)
[2024-07-10] MEDS: cefTRIAXone 1,000 mg SDV 1000 MG IVP (11:52)
[2024-07-10 12:00] VITALS: BP 110/67; PULSE 108; RESP 18; TEMP -12.3; TEMP 9.9; O2SAT 97
[2024-07-10] MEDS: ALPRAZolam 0.5 mg Tablet PO ×2 (12:24→20:52)
[2024-07-10] MEDS: acetaminophen 500 mg Tablet PO ×2 (12:24→20:51)
--- NOTE | 2024-07-10 15:08 | W.PM.PSYCONS ---
Providers/Reason for Consult Consulting Physican/Specialty*: Bar Khan MD/Psychiatry Reason for Consult*: depression Attending Physician: Jose D Rhoades MD Primary Care Provider: Marly Goss MD Psych Consult HPI History of Present Illness Mena Cano is a 48 year old female who presented and was admitted to the [facility] unit currently receiving treatment for generalized weakness and fatigue with a recent onset of a stroke in April 2025. The patient had reported that she has been feeling depressed for several months since she had her stroke in April 2024. Patient reports that she feels chronically weak and states that she is sad that she is uncertain as to whether she will be able to resume work again. She reports that she has problems with anxiety. She endorses some feelings of hopelessness but denies any suicidal thoughts. She reports that she has had problems with chronic pain for several years and states that she has been rejected from pain specialist and admitted to a past history of methamphetamine abuse several years ago but states that she has been without the use of methamphetamine for at least 8 years. She acknowledged a past history of IV methamphetamine use leading to her being diagnosed with hepatitis C. Patient had reported that she had previously been on Suboxone for pain management but states that no one has been willing to give her medications to manage pain despite her problems with chronic lower back pain and a reported history of fibromyalgia. The patient had reported no prior history of inpatient psychiatric hospitalizations. She denies any current substance use at this time. She reports having some concerns about her support at home stating that her of many years has been diagnosed with narcolepsy and is unable to manage or help with Mena's needs at home. She denies any history of xu. She denies any change in appetite. She does report a reduction in energy. She reports some anhedonia recently. Inpatient psychiatric history: None reported Outpatient psychiatric history: Currently not receiving any services. Substance abuse history: Per previous records there is a history of opiate dependence along with methamphetamine abuse. She reported no history of substance abuse treatment per se. Medical history/surgical history: as stated Allergies: Amoxicillin Medications: see below Legal History: none reported Family psychiatric history: none reported Social History: The patient lives with his her . She has 2 children that are of adult age living elsewhere in the [place] area. She had denied any history of trauma. She had reported that she had been working in a [employer] in [place] for several years prior to her stroke in April. She had denied any history of trauma during her childhood. She reports that she has been for several years and her suffers from disability including narcolepsy. She reports some financial stressors in the home environment. Meds Home Medications and Allergies Home Medications ?Medication ?Instructions ?Recorded ?Confirmed ?Last Taken ?Type insulin glargine 100 unit/mL (3 22 unit (0.22 mL) SUBCUT QAM #15 mL 06/26/23 07/09/24 10/26/23 Rx mL) subcutaneous pen (Lantus Solostar U-100 Insulin) levothyroxine 75 mcg tablet 75 mcg PO DAILY low thyroid #90 08/11/23 07/09/24 10/26/23 Rx tabs aspirin 325 mg tablet 325 mg PO DAILY 11/15/23 07/09/24 05/06/24 History metoprolol tartrate 25 mg tablet 25 mg PO BID tachycardia #60 tabs 03/07/24 07/09/24 Unknown Rx cetirizine 10 mg tablet (Zyrtec) 10 mg PO DAILY PRN allergy 04/26/24 07/09/24 05/06/24 Rx symptoms #60 tabs insulin aspart U-100 100 unit/mL See Rx Instructions .Route .COMPLEX 05/06/24 07/09/24 Unknown History (3 mL) subcutaneous pen (Novolog FlexPen U-100 Insulin aspart) nicotine (polacrilex) 4 mg buccal 4 mg mucous membrane Q2H PRN 05/07/24 07/09/24 Unknown Rx lozenge Nicotine Cravings #180 ea nicotine 14 mg/24 hr daily 1 patch transdermal Q24H PRN 05/07/24 07/09/24 Unknown Rx transdermal patch Withdrawal #90 ea atorvastatin 40 mg tablet 40 mg PO DAILY #30 tabs 05/14/24 07/09/24 Unknown Rx losartan 25 mg tablet 25 mg PO DAILY #30 tabs 05/14/24 07/09/24 Unknown Rx clopidogrel 75 mg tablet (Plavix) 75 mg PO DAILY #30 tabs 06/03/24 07/09/24 Unknown Rx omeprazole 40 mg capsule,delayed See Rx Instructions .Route 06/03/24 07/09/24 Unknown Rx release .COMPLEX #30 caps fluoxetine 20 mg capsule (Prozac) 20 mg PO DAILY #30 caps 06/10/24 07/09/24 Unknown Rx Allergies Allergy/AdvReac Type Severity Reaction Status Date / Time amoxicillin Allergy Unknown Verified 06/03/24 09:14 Current Medications Current Medications Generic Name Dose Route Start Last Admin Trade Name Freq PRN Reason Stop Dose Admin Acetaminophen 500 mg 07/08/24 20:42 07/10/24 12:24 Acetaminophen 500 Mg Tablet PO 500 mg Q4H PRN Administration fever Alprazolam 0.5 mg 07/09/24 21:32 07/10/24 12:24 Alprazolam 0.5 Mg Tablet PO 0.5 mg TID PRN Administration ANXIETY Aspirin 325 mg 07/09/24 09:00 07/10/24 09:27 Aspirin 325 Mg Tablet PO 325 mg DAILY VARUN Administration Atorvastatin Calcium 40 mg 07/09/24 09:00 07/10/24 09:27 Atorvastatin 40 Mg Tablet PO 40 mg DAILY VARUN Administration Ceftriaxone Sodium 1,000 mg 07/09/24 09:30 07/10/24 11:52 Ceftriaxone 1,000 Mg Sdv IVP 1,000 mg Q24H VARUN Administration Protocol Clopidogrel Bisulfate 75 mg 07/09/24 09:00 07/10/24 09:27 Clopidogrel 75 Mg Tablet PO 75 mg DAILY VARUN Administration Enoxaparin Sodium 40 mg 07/08/24 20:42 07/09/24 22:14 Enoxaparin 40 Mg/0.4 Ml Syringe SUBCUT 40 mg Q24H VARUN Administration Fluoxetine HCl 20 mg 07/09/24 09:00 07/10/24 09:27 Fluoxetine 20 Mg Capsule PO 20 mg DAILY VARUN Administration Insulin Glargine 22 unit 07/09/24 06:00 07/10/24 06:13 Insulin Glargine 100 Units/1 Ml SUBCUT 22 unit QAM VARUN Administration Insulin Human Lispro 0 unit 07/09/24 08:00 07/10/24 11:50 Insulin Lispro 100 Unit/1 Ml SUBCUT 18 unit TIDWM VARUN Administration Protocol Levothyroxine Sodium 75 mcg 07/09/24 09:00 07/10/24 09:27 Levothyroxine 75 Mcg Tablet PO 75 mcg DAILY VARUN Administration Losartan Potassium 25 mg 07/09/24 09:00 07/10/24 11:51 Losartan 50 Mg Tablet PO 25 mg DAILY VARUN Administration Metoprolol Tartrate 25 mg 07/09/24 09:00 07/10/24 11:51 Metoprolol Tartrate 25 Mg Tablet PO 25 mg BID VARUN Administration Senna/Docusate Sodium 1 tab 07/09/24 09:00 07/10/24 09:27 Sennosides-Docusate Tablet PO 1 tab DAILY VARUN Administration PFSH NPU PFSH: Medical History Supraventricular tachycardia (~04/2020) identified during ED visit 04/2020, treated with 6mg adenosine with conversion to sinus Generalized anxiety disorder with panic attacks Smokers' cough Acute pancreatitis Unintentional weight loss of more than 10% body weight within 6 months Diabetic macular edema Diabetic retinopathy, nonproliferative, severe Polysubstance (including opioids) dependence w/o physiol dependence smoker, severe cannabis, Opioid, Methamphetamines Insomnia Smoker COPD (chronic obstructive pulmonary disease) with emphysema Scoliosis associated with other condition Lumbar disc disease with radiculopathy Hemochromatosis carrier Diabetes type 2, uncontrolled PTSD (post-traumatic stress disorder) History of rheumatoid arthritis Osteoarthritis involving multiple joints on both sides of body GERD (gastroesophageal reflux disease) JOSE (obstructive sleep apnea) per sleep study 2010, CPAP of 13 recommended at that time, no longer with machine Dyslipidemia Hypothyroidism Surgical History Hx of cataract surgery bilateral eye History of umbilical hernia repair (~2011) History of incision and drainage (~2013) right upper extremity and R lower extremity History of tubal ligation History of hysterectomy (~2011) also Kimberly urethral plication Family History Father Diabetes Mother Diabetes Grandfather Postsurgical cardiac pacemaker in situ Denies family history of Stroke Social History Smoking and tobacco/nicotine status: current every day tobacco/nicotine user cigarettes Packs smoked per day: 0.5 Years cigarettes smoked: 33 Quit status (tobacco/nicotine): has tried quititng Number of times tried to quit tobacco: 5 Second hand smoke exposure: Yes Alcohol intake: former Substance/Drug Use: former Date of last use: IV drug use - 2019 Caregiver/support person: No Lives independently: Yes Household members: spouse Housing: House Marital status: Life Partner Number of children: 2 Number of grandchildren: 0 Highest education level completed: High School Graduate service: No Current occupational status: unemployed 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 She was friendly and cooperative on interview. She appeared in mild distress at this time. There was significant signs of asymmetry with diminished facial movements and arm movements on left side of face. Her gait was not tested. Her speech was normal in regards to rate rhythm and prosody. Her thought process was linear logical and goal-directed. She denied any homicidal or suicidal ideation. She did not appear to be responding internal stimuli there was no clear evidence of delusional thinking. She endorsed her mood is depressed. Her affect was restricted in range and mood congruent. She was alert and oriented person place time and situation. Her recent remote memory appeared grossly intact. Her insight is limited. Her judgment appeared fair. Her impulse control appeared guarded at this time. Vitals/I&O/Wt Last Vital Signs Temp 9.9 F L 07/10/24 12:00 Pulse 108 H 07/10/24 12:00 Resp 18 07/10/24 12:00 BP 110/67 07/10/24 12:00 Pulse Ox 97 07/10/24 12:00 O2 Del Method Room Air 07/10/24 12:00 07/10/24 07/10/24 07/10/24 06:59 14:59 22:59 Intake Total 220 / 2180 1320 / 1320 Balance 220 / 2180 1320 / 1320 Weight last 48 hrs Weight 70.806 kg Weight 70.307 kg Weight 70.307 kg Data NPU 07/10/24 04:32 07/10/24 04:32 A&P Assessment and plan (1) Polysubstance (including opioids) dependence w/o physiol dependence: (2) Major depressive disorder, recurrent, moderate: (3) Generalized anxiety disorder with panic attacks: Plan 48-year-old female with history of reported depression, fibromyalgia, chronic pain issues reporting no suicidal ideation but continued depression. She would likely benefit from psychotherapy and follow-up with psychiatric services on an outpatient basis. She may be a better candidate to receive Cymbalta given comorbid fibromyalgia and depression which appears better treated with a SNRI but at this time I would recommend that Prozac be continued to target depression. 1. Recommend outpatient referral to [facility] 2. Continue Prozac 20mg daily 3. Contact for additional follow up if needed. PDMP PDMP Reviewed: Not Reviewed Attestations NPU Medical Necessity Statement*: NA Coding Level of Care Code Acute Code for Chg Fwd Diagnoses Polysubstance (including opioids) dependence w/o physiol dependence F19.20 Major depressive disorder, recurrent, moderate F33.1 Generalized anxiety disorder with panic attacks F41.1; F41.0
[2024-07-10 16:00] VITALS: BP 96/65; PULSE 81; RESP 18; TEMP 36.5; O2SAT 93
[2024-07-10 16:50] LABS: Glucose Point of Care 214 mg/dL (70-110)
--- NOTE | 2024-07-10 17:01 | P.PN_ITS ---
Subjective 2 Subjective: Patient was seen this morning, she is alert oriented x 3, following all commands, denies any fevers, chills, no cough does complain of left lower extremity and left upper extremity weakness which is chronic, from her CVA, discussed her hyperglycemia and blood sugar management A1c is 12.4, Vitals/I&O/Wt Last Vital Signs Temp 9.9 F L 07/10/24 12:00 Pulse 108 H 07/10/24 12:00 Resp 18 07/10/24 12:00 BP 110/67 07/10/24 12:00 Pulse Ox 97 07/10/24 12:00 O2 Del Method Room Air 07/10/24 12:00 07/10/24 07/10/24 07/10/24 06:59 14:59 22:59 Intake Total 220 / 2180 1320 / 1320 Balance 220 / 2180 1320 / 1320 Weight last 48 hrs Weight 70.806 kg Weight 70.307 kg Weight 70.307 kg Physical Exam 2 Const: COMMON NORMALS: no acute distress and patient oriented x3 Resp: COMMON NORMALS: normal respiratory effort, No retractions, No use of accessory muscles and clear to auscultation bilaterally AUSCULTATION: clear to auscultation bilaterally Cardio: COMMON NORMALS: regular rate, regular rhythm, S1 normal heart sound present and S2 normal heart sound present RATE: regular rate RHYTHM: r egular rhythm HEART SOUNDS: S1 normal heart sound present and S2 normal heart sound present GI: COMMON NORMALS: Normal to inspection, nondistended, normoactive bowel sounds present and non-tender Extremity: COMMON NORMALS: no pedal edema NARRATIVE EXTREMITY EXAM: Left upper and left lower extremity weakness Neuro: COMMON NORMALS: patient oriented x3 Psych: COMMON NORMALS: mental status grossly normal Data 07/10/24 04:32 07/10/24 04:32 A&P Assessment and plan (1) Depression: (2) Major depressive disorder, recurrent, moderate: (3) Anxiety: (4) Generalized anxiety disorder with panic attacks: (5) Diabetes type 2, uncontrolled: Qualifiers: Glycemic state: with hyperglycemia Qualified Code(s): E11.65 - Type 2 diabetes mellitus with hyperglycemia (6) Stroke: (7) Smokers' cough: (8) JOSE (obstructive sleep apnea): (9) Insomnia: Qualifiers: Insomnia type: primary Qualified Code(s): F51.01 - Primary insomnia (10) Multiple falls: (11) Debility: (12) Weakness: Plan Generalized weakness and fatigue -Component related to UTI, started on Rocephin, renal ultrasound no acute findings -Component related to depression anxiety, psychiatry consulted Recent stroke, with residual left-sided weakness, repeat head CT CT/CT head wo con* [id number] IMPRESSION: 1. No acute intracranial hemorrhage or edema. 2. Remote lacunar infarct RIGHT thalamus which may extend into the internal capsule. Monitor as inpatient PT OT Continue aspirin, Plavix, statin Continue fluoxetine Uncontrolled type 2 diabetes Hyperglycemia without DKA Change to high-dose sliding scale, continue Lantus Depression without any signs of homicidal or suicidal ideation: Patient has been on Prozac 20 mg daily Psychiatry consulted PT OT Full code Consistent carb diet PDMP PDMP Reviewed: Not Reviewed Attestations 2 Medical Necessity Statement*: Patient requires hospitalization for generalized weakness, fatigue, UTI, history of CVA Diagnoses Depression F32.A Major depressive disorder, recurrent, moderate F33.1 Anxiety F41.9 Generalized anxiety disorder with panic attacks F41.1; F41.0 Uncontrolled type 2 diabetes mellitus with hyperglycemia E11.65 Glycemic state: with hyperglycemia Stroke I63.9 Smokers' cough J41.0 JOSE (obstructive sleep apnea) G47.33 Primary insomnia F51.01 Insomnia type: primary Multiple falls R29.6 Debility R53.81 Weakness R53.1
[2024-07-10 20:00] VITALS: BP 103/67; PULSE 78; RESP 17; TEMP 36.8; O2SAT 96
[2024-07-10 20:36] LABS: Glucose Point of Care 254 mg/dL (70-110)
[2024-07-10] MEDS: enoxaparin 40 mg/0.4 mL Syringe SUBCUT (20:52)
[2024-07-11] VITALS: BP 127/74; PULSE 75; RESP 18; TEMP 36.4; O2SAT 97
--- NOTE | 2024-07-11 00:30 | PC.NURSE ---
Addendum entered by Rosa Maria Burciaga LPN 07/11/24 04:43: Patient complained of severe pain in hands and feet, this nurse contacted hospitalist Dr. Sanford at 0033. Nurse is awaiting reply form hospitalist at this time. Original Note: Patient complained of severe pain in hands and feet
[2024-07-11 04:00] VITALS: BP 116/77; PULSE 76; RESP 18; TEMP 36.5; O2SAT 97
--- NOTE | 2024-07-11 04:44 | PC.NURSE ---
This nurse contacted hospitalist Dr. Sanford at 0033 due to patient complaining of severe pain in hands and feet. Nurse did not recieve reply. Patient is currently resting comfortably in bed.
[2024-07-11] MEDS: insulin glargine 100 units/1 mL 22 UNIT SUBCUT (05:54)
[2024-07-11 06:08] LABS: Glucose Point of Care 299 mg/dL (70-110)
[2024-07-11 06:37] LABS: Basophils # 0.1 10^3/uL (0.0-0.1); Basophils % 1.1 %; Eosinophils # 0.1 10^3/uL (0.0-0.8); Eosinophils % 1.7 %; Hematocrit 38.1 % (36-47); Lymphocytes # 3.4 10^3/uL (0.8-4.8); Mean Corpuscular HGB Conc 35.4 g/dL (30-55); Mean Corpuscular Hemoglobin 29.5 pg (27-33); Mean Corpuscular Volume 83.2 fl (85-98); Mean Platelet Volume 9.4 fL (7.4-10.4); Monocytes # 0.6 10^3/uL (0.2-0.9); Monocytes % 7.6 %; Neutrophils # 3.32 10^3/uL (1.8-7.7); Neutrophils % 44.2 %; Nucleated Red Blood Cells % 0 %; Platelet Count 285 10^3/cmm (157-399); Red Blood Count 4.58 10^6/uL (3.85-5.65); Red Cell Distribution Width 11.9 % (12.1-15.1); White Blood Count 7.51 10^3/uL (3.29-11.43)
[2024-07-11 06:55] LABS: Alanine Aminotransferase 15 U/L (0-33); Albumin Level 3.4 g/dL (3.5-5.2); Alkaline Phosphatase 88 U/L (35-105); Anion Gap 17.4 (5-19); Aspartate Amino Transferase 12 U/L (0-32); Blood Urea Nitrogen 17 mg/dL (6-20); Carbon Dioxide 24 mmol/L (22-29); Chloride 94 mmol/L (98-107); Creatinine Clr Calc Pharmacy 128.0355; Globulin 2.5 g/dL (1.3-4.6); Glomerular Filtration Rate 130.6 mL/min (90-130); Glucose 293 mg/dL (65-115); Magnesium 1.7 mg/dL (1.7-2.3); Osmolality Calculated 284 mOsm/kg (285-295); Phosphorus 3.3 mg/dL (2.5-4.5); Potassium 4.4 mmol/L (3.5-5.1); Sodium 131 mmol/L (136-145); Total Bilirubin 0.2 mg/dL (0.15-1.2); Total Protein 5.9 g/dL (6.6-8.7)
[2024-07-11 07:44] VITALS: BP 99/65; PULSE 73; TEMP 36.6; O2SAT 97
[2024-07-11] MEDS: fluoxetine 20 mg Capsule PO (09:00)
[2024-07-11] MEDS: atorvastatin 40 mg Tablet PO (09:00)
[2024-07-11] MEDS: sennosides-docusate Tablet 1 TAB PO (09:00)
[2024-07-11] MEDS: clopidogrel 75 mg Tablet PO (09:00)
[2024-07-11] MEDS: metoprolol tartrate 25 mg Tablet PO (09:00)
[2024-07-11 09:01] VITALS: BP 99/65
[2024-07-11] MEDS: insulin lispro 100 unit/1 mL SUBCUT ×2 (09:01→11:45)
[2024-07-11] MEDS: levothyroxine 75 mcg Tablet PO (09:01)
[2024-07-11] MEDS: aspirin 325 mg Tablet PO (09:01)
[2024-07-11] MEDS: acetaminophen 500 mg Tablet PO (09:04)
[2024-07-11 11:03] LABS: Glucose Point of Care 296 mg/dL (70-110)
--- NOTE | 2024-07-11 11:04 | PM.DCS ---
Discharge Providers Date of Admission: 07/08/24 19:11 Date of Discharge: July 11, 2024 Attending Provider at Admission: Tonny Sanford MD Attending Provider at Discharge: Jose D Rhoades MD Primary Care Provider: Marly Goss MD Diagnoses at Discharge Discharge Diagnosis (1) Depression: Status: Acute (2) Major depressive disorder, recurrent, moderate: Status: Acute (3) Anxiety: Status: Acute (4) Generalized anxiety disorder with panic attacks: Status: Acute (5) Diabetes type 2, uncontrolled: Status: Acute Qualifiers: Glycemic state: with hyperglycemia Qualified Code(s): E11.65 - Type 2 diabetes mellitus with hyperglycemia (6) Stroke: Status: Acute (7) Smokers' cough: Status: Acute (8) JOSE (obstructive sleep apnea): Status: Acute Permanent problem details: per sleep study 2010, CPAP of 13 recommended at that time, no longer with machine (9) Insomnia: Status: Acute Qualifiers: Insomnia type: primary Qualified Code(s): F51.01 - Primary insomnia (10) Multiple falls: Status: Acute (11) Debility: Status: Acute (12) Weakness: Status: Acute Reason for Visit Reason for Visit: Anxiety Hospital Course Hospital Course This is a 48-year-old female with a past medical history of CVA with left-sided weakness smoker who presents [facility] due to generalized weakness, fatigue Patient was admitted to [facility] for generalized weakness, fatigue, multifactorial from UTI, hyperglycemia, recent stroke residual left-sided weakness. For uncontrolled type 2 diabetes she was monitored as inpatient, monitored on Lantus, high-dose sliding scale. She will be discharged on Lantus 25 units subcu a.m., with a high-dose sliding scale with a follow-up with Dr. Drummond as outpatient For her UTI she has completed 3 days of IV antibiotics as inpatient will be discharged with p.o. antibiotics as outpatient For her left-sided weakness for acute CVA, patient had a repeat head CT which shows remote lacunar infarct right thalamus which may extend to internal capsule, no recurrent strokelike symptoms, but patient reports not thriving as well as she hoped after her stroke. She expressed the desire to go back to work but does not have a lot of help at home. She received inpatient physical therapy, will be discharged with home health care, continue aspirin, Plavix, statin with outpatient follow-up with neurology as outpatient. For her depression, seen by psychiatry as inpatient, will continue Prozac follow-up with primary care provider, consider switching over to Cymbalta to help with her chronic pain complaints For her anxiety she was discharged with a short supply of Xanax to be used as needed for anxiety episodes For her pain, she reports pain in the left arm, left leg, after her stroke, pain with range of motion, and stiffness. Discharged with a short supply of hydrocodone to be used sparingly for pain. Follow-up with primary care provider as outpatient. On discharge advised of compliance with aspirin, statin, Plavix On discharge advised of compliance with blood sugar regimen, insulin sliding scale, Lantus, follow-up primary care follow-up and Dr. Drummond - Please follow-up with neurology -If you have recurrent strokelike symptoms please go to emergency room -Please monitor blood sugars closely -Please monitor your blood sugars closely -Monitor your blood sugars 3 times daily as after meals -Please record your blood sugars, and a blood sugar log -For your NovoLog -Please inject blood sugar after meals based on sliding scale provided -Do not inject insulin if you do not eat as hypoglycemia kills -This is a NovoLog sliding scale -Insulin sliding ?fingerstick? Insulin ?141-180?6 units/sq 181-220?8 units/sq ?221-260?10 units/sq ?261-300 12 units/sq ?301-350?14 units/sq ?351-400 16 units/sq ?401-450?18 units/sq >450? 20 units/sq -If your blood sugar is greater than 500 go to the emergency room -If your blood sugar is less than 60 or at anytime you feel lightheaded or dizzy or diaphoretic or have chest palpitations check your blood sugar, and eat a hard candy or drink orange juice and go immediately to the emergency room -Remember hypoglycemia kills, so if his blood sugar is less than 60 we have to increase it by taking in a sugary meal such as a hard candy or orange juice and go to the emergency room -If you have any questions please call us where here to help -Please inject Lantus 25 units subcut daily -Please use hydrocodone sparingly for pain, do not drive or operate machinery or drink while taking medication -Please use Xanax sparingly for anxiety, do not drive or operate machinery or drink while taking medication -Do not use hydrocodone and Xanax together, Physical Exam Const: COMMON NORMALS: no acute distress and patient oriented x3 Resp: COMMON NORMALS: normal respiratory effort, No retractions, No use of accessory muscles and clear to auscultation bilaterally AUSCULTATION: clear to auscultation bilaterally Cardio: COMMON NORMALS: regular rate, regular rhythm, S1 normal heart sound present and S2 normal heart sound present RATE: regular rate RHYTHM: regular rhythm HEART SOUNDS: S1 normal heart sound present and S2 normal heart sound present GI: COMMON NORMALS: Normal to inspection, nondistended, normoactive bowel sounds present Extremity: COMMON NORMALS: no pedal edema Neuro: COMMON NORMALS: patient oriented x3 Psych: COMMON NORMALS: mental status grossly normal Discharge Data Studies Completed and Pending Completed Studies During Hospitalization Category Date Time Status CT head wo con* [id number] Routine Cat Scan 07/09/24 09:25 Completed US renal BI* [id number] Routine Ultrasound 07/09/24 09:23 Completed Pending at discharge Category Date Time Status Complete Blood Count w/Auto AM LABS Lab 07/12/24 04:00 Ordered Comprehensive Metabolic Panel AM LABS Lab 07/12/24 04:00 Ordered Magnesium AM LABS Lab 07/12/24 04:00 Ordered Phosphorus AM LABS Lab 07/12/24 04:00 Ordered Radiology Impressions Renal Ultrasound 07/09/24 09:23 IMPRESSION: 1. Poorly visualized RIGHT kidney. No hydronephrosis identified. Mass would be difficult to exclude. 2. Unremarkable LEFT kidney. Head CT 07/09/24 09:25 IMPRESSION: 1. No acute intracranial hemorrhage or edema. 2. Remote lacunar infarct RIGHT thalamus which may extend into the internal capsule. Laboratory Results WBC 7.51 10^3/uL (3.29-11.43) 07/11/24 06:05 RBC 4.58 10^6/uL (3.85-5.65) 07/11/24 06:05 Hgb 13.50 g/dL (11.27-16.99) 07/11/24 06:05 Hct 38.1 % (36-47) 07/11/24 06:05 MCV 83.2 fl (85-98) L 07/11/24 06:05 MCH 29.5 pg (27-33) 07/11/24 06:05 MCHC 35.4 g/dL (30-55) 07/11/24 06:05 RDW 11.9 % (12.1-15.1) L 07/11/24 06:05 Plt Count 285 10^3/cmm (157-399) 07/11/24 06:05 MPV 9.4 fL (7.4-10.4) 07/11/24 06:05 Neut % (Auto) 44.2 % 07/11/24 06:05 Lymph % (Auto) 45.0 % 07/11/24 06:05 Kings % (Auto) 7.6 % 07/11/24 06:05 Eos % (Auto) 1.7 % 07/11/24 06:05 Baso % (Auto) 1.1 % 07/11/24 06:05 Neut # (Auto) 3.32 10^3/uL (1.8-7.7) 07/11/24 06:05 Lymph # (Auto) 3.4 10^3/uL (0.8-4.8) 07/11/24 06:05 Kings # (Auto) 0.6 10^3/uL (0.2-0.9) 07/11/24 06:05 Eos # (Auto) 0.1 10^3/uL (0.0-0.8) 07/11/24 06:05 Baso # (Auto) 0.1 10^3/uL (0.0-0.1) 07/11/24 06:05 Nucleated RBC % (auto) 0 % 07/11/24 06:05 Nucleated RBCs # 0.0 /100WBC 07/11/24 06:05 D-Dimer <= 0.27 ug/mLFEU (0-0.59) 07/08/24 19:32 Specimen Type Arterial 07/08/24 20:47 Sample Site Brachial, right 07/08/24 20:47 ABG pH 7.41 (7.35-7.45) 07/08/24 20:47 ABG pCO2 44.8 mmHg (35-45) 07/08/24 20:47 ABG pO2 67.5 mmHg (80.0-100.0) L 07/08/24 20:47 ABG PO2/FiO2 Ratio 321 07/08/24 20:47 ABG HCO3 28.4 mmol/L (22-26) H 07/08/24 20:47 ABG O2 Saturation 91.9 07/08/24 20:47 ABG Base Excess 3.0 mmol/L (-2.0-2.0) H 07/08/24 20:47 Satish Test N/a 07/08/24 20:47 A-a O2 Gradient 3.6 mmHg (5-10) L 07/08/24 20:47 Hematocrit 52.8 % (37-47) H 07/08/24 20:47 Hgb O2 Saturation 90.3 % (95-100) L 07/08/24 20:47 Carboxyhemoglobin 0.7 %THgb (0.4-20.1) 07/08/24 20:47 Methemoglobin 0.9 % (0.4-1.5) 07/08/24 20:47 Total Hemoglobin 17.2 g/dL (12-16) H 07/08/24 20:47 Sodium 124.0 mmol/L (131-143) L 07/08/24 20:47 Potassium 4.3 mmol/L (3.5-5.0) 07/08/24 20:47 Glucose 571.0 mg/dL (70-115) H 07/08/24 20:47 Ionized Calcium 1.2 mmol/L (1.1-1.4) 07/08/24 20:47 O2 Delivery Device Room air 07/08/24 20:47 FiO2 21.0 % 07/08/24 20:47 Electrical Installation Inspector ID Genevieveja 07/08/24 20:47 Sodium 131 mmol/L (136-145) L 07/11/24 06:05 Potassium 4.4 mmol/L (3.5-5.1) 07/11/24 06:05 Chloride 94 mmol/L (98-107) L 07/11/24 06:05 Carbon Dioxide 24 mmol/L (22-29) 07/11/24 06:05 Anion Gap 17.4 (5-19) 07/11/24 06:05 BUN 17 mg/dL (6-20) 07/11/24 06:05 Creatinine 0.5 mg/dL (0.5-0.9) 07/11/24 06:05 GFR Calculation 130.6 mL/min (90-130) H 07/11/24 06:05 Glucose 293 mg/dL (65-115) H 07/11/24 06:05 POC Glucose 296 mg/dL (70-110) H 07/11/24 10:45 Estimat Average Glucose 309 07/08/24 19:32 Hemoglobin A1c 12.4 % (4.0-6.0) H 07/08/24 19:32 Calculated Osmolality 284 mOsm/kg (285-295) L 07/11/24 06:05 Calcium 9.0 mg/dL (8.5-10.5) 07/11/24 06:05 Phosphorus 3.3 mg/dL (2.5-4.5) 07/11/24 06:05 Magnesium 1.7 mg/dL (1.7-2.3) 07/11/24 06:05 Total Bilirubin 0.2 mg/dL (0.15-1.2) 07/11/24 06:05 AST 12 U/L (0-32) 07/11/24 06:05 ALT 15 U/L (0-33) 07/11/24 06:05 Alkaline Phosphatase 88 U/L (35-105) 07/11/24 06:05 C-Reactive Protein 3.0 mg/L (0.0-4.9) 07/09/24 04:37 Total Protein 5.9 g/dL (6.6-8.7) L 07/11/24 06:05 Albumin 3.4 g/dL (3.5-5.2) L 07/11/24 06:05 Globulin 2.5 g/dL (1.3-4.6) 07/11/24 06:05 Vitamin B12 832 pg/mL (232-1245) 07/08/24 19:32 Urine Color Yellow (Yellow) 07/09/24 01:54 Urine Appearance Turbid (CLEAR) A 07/09/24 01:54 Urine pH 5.5 (5-7) 07/09/24 01:54 Ur Specific [place] 1.033 (1.005-1.030) H 07/09/24 01:54 Urine Protein 1+ (Negative) A 07/09/24 01:54 Urine Glucose (UA) 3+ (Normal) H 07/09/24 01:54 Urine Ketones Negative (Negative) 07/09/24 01:54 Urine Blood Trace (Negative) A 07/09/24 01:54 Urine Nitrate Negative (Negative) 07/09/24 01:54 Urine Bilirubin Negative (Negative) 07/09/24 01:54 Urine Urobilinogen 0.2 mg/dL (Negative) 07/09/24 01:54 Ur Leukocyte Esterase Trace (Negative) A 07/09/24 01:54 Urine RBC 21-50 /hpf (0-2) H 07/09/24 01:54 Urine WBC >100 /hpf (0-5) H 07/09/24 01:54 Ur Squamous Epith Cells 21-50 /hpf (0-5) H 07/09/24 01:54 Amorphous Sediment Not Reportable 07/09/24 01:54 Urine Bacteria 4+ /hpf (NONE) H 07/09/24 01:54 Hyaline Casts 3.30 /lpf 07/09/24 01:54 Urine Yeast 3+ /hpf H 07/09/24 01:54 Serum Ketones Negative (Negative) 07/08/24 19:32 Vitals Last Vital Signs Temp 97.8 F 07/11/24 07:44 Pulse 73 07/11/24 07:44 Resp 18 07/11/24 04:00 BP 99/65 07/11/24 09:01 Pulse Ox 97 07/11/24 07:44 O2 Del Method Room Air 07/11/24 07:44 Discharge Plan Discharge Patient Disposition: Home Condition: Stable Prescriptions: New alprazolam 0.5 mg Tablet 0.5 mg PO BID PRN (Reason: Anxiety) 7 Days Qty: 14 0RF hydrocodone-acetaminophen 5-325 mg tablet 1 tab PO DAILY PRN (Reason: pain) 7 Days Qty: 7 0RF Continued levothyroxine 75 mcg tablet 75 mcg PO DAILY Qty: 90 3RF aspirin 325 mg tablet 325 mg PO DAILY clopidogrel [Plavix] 75 mg tablet 75 mg PO DAILY Qty: 30 3RF cetirizine [Zyrtec] 10 mg tablet 10 mg PO DAILY PRN (Reason: allergy symptoms) Qty: 60 0RF losartan 25 mg tablet 25 mg PO DAILY Qty: 30 2RF atorvastatin 40 mg tablet 40 mg PO DAILY Qty: 30 2RF metoprolol tartrate 25 mg tablet 25 mg PO BID Qty: 60 5RF omeprazole 40 mg capsule,delayed release(DR/EC) See Rx Instructions .ROUTE .COMPLEX Qty: 30 0RF Dose Instruction: TAKE 1 CAPSULE BY MOUTH ONCE DAILY NEEDED FOR ACID REFLUX Rx Instructions: TAKE 1 CAPSULE BY MOUTH ONCE DAILY NEEDED FOR ACID REFLUX fluoxetine [Prozac] 20 mg capsule 20 mg PO DAILY Qty: 30 0RF nicotine 14 mg/24 hr Patch 24 Hour 1 patch transdermal Q24H PRN (Reason: Withdrawal) Qty: 90 0RF nicotine (polacrilex) 4 mg Lozenge 4 mg mucous membrane Q2H PRN (Reason: Nicotine Cravings) Qty: 180 3RF Changed insulin aspart U-100 [Novolog FlexPen U-100 Insulin] 100 unit/mL (3 mL) insulin pen See Rx Instructions .ROUTE .COMPLEX MDD 60 Qty: 30 0RF Rx Instructions: Inject, subcut, 3 times daily, after meals, based on insulin sliding scale insulin glargine [Lantus Solostar U-100 Insulin] 100 unit/mL (3 mL) insulin pen 25 unit SUBCUT QAM Qty: 15 1RF Discharge Orders: Discharge Order (Routine); Ordered 07/11/24 Ordered By: Jose D Rhoades Referrals: Remington Richard MD [Physician] - 1-3 days Marly Goss MD [Primary Care Provider] - 08/27/24 10:30 am Brice Drummond MD [Physician] - 1 week Discharge Diet: Cardiac Discharge Activity: Resume usual activity Patient Instructions: Hydrocodone/Acetaminophen (By mouth), Alprazolam (By mouth), Fall Prevention for Older Adults (DC), Generalized Anxiety Disorder (ED), Opioid Safety Activity Restrictions/Additional Instructions: - Please follow-up with neurology -If you have recurrent strokelike symptoms please go to emergency room -Please monitor blood sugars closely -Please monitor your blood sugars closely -Monitor your blood sugars 3 times daily as after meals -Please record your blood sugars, and a blood sugar log -For your NovoLog -Please inject blood sugar after meals based on sliding scale provided -Do not inject insulin if you do not eat as hypoglycemia kills -This is a NovoLog sliding scale -Insulin sliding ?fingerstick? Insulin ?141-180?6 units/sq 181-220?8 units/sq ?221-260?10 units/sq ?261-300 12 units/sq ?301-350?14 units/sq ?351-400 16 units/sq ?401-450?18 units/sq >450? 20 units/sq -If your blood sugar is greater than 500 go to the emergency room -If your blood sugar is less than 60 or at anytime you feel lightheaded or dizzy or diaphoretic or have chest palpitations check your blood sugar, and eat a hard candy or drink orange juice and go immediately to the emergency room -Remember hypoglycemia kills, so if his blood sugar is less than 60 we have to increase it by taking in a sugary meal such as a hard candy or orange juice and go to the emergency room -If you have any questions please call us where here to help -Please inject Lantus 25 units subcut daily -Please use hydrocodone sparingly for pain, do not drive or operate machinery or drink while taking medication -Please use Xanax sparingly for anxiety, do not drive or operate machinery or drink while taking medication -Do not use hydrocodone and Xanax together, -TSH 5.78, please have your primary care provider recheck your TSH in 2 weeks Discharge Attestations Time Spent in Discharge Care*: greater than 30 min Status at Discharge: Cognitive status at discharge: cognitively intact, Behavioral status at discharge: cooperative, Quality Metrics Clinical Quality Measures [ No reported AMI, CVA or VTE this stay] Coding Level of Care Code 30709 Total time (in minutes) for Discharge: 45 Diagnoses Depression F32.A Major depressive disorder, recurrent, moderate F33.1 Anxiety F41.9 Generalized anxiety disorder with panic attacks F41.1; F41.0 Uncontrolled type 2 diabetes mellitus with hyperglycemia E11.65 Glycemic state: with hyperglycemia Stroke I63.9 Smokers' cough J41.0 JOSE (obstructive sleep apnea) G47.33 Primary insomnia F51.01 Insomnia type: primary Multiple falls R29.6 Debility R53.81 Weakness R53.1
[2024-07-11 11:12] VITALS: BP 114/76; PULSE 73; RESP 16; O2SAT 99
[2024-07-11] MEDS: ALPRAZolam 0.5 mg Tablet PO (11:45)
[2024-07-11] MEDS: cefTRIAXone 1,000 mg SDV 1000 MG IVP (11:46)
[2024-07-11] MEDS: HYDROcodone-acetaminophen 5-325 mg Tablet 1 TAB PO (12:36)
[2024-07-11 13:03] VITALS: BP 114/76; PULSE 73; O2SAT 99
== END 2024-07-11 13:05 | disposition home or self-care (01) ==
LOC: ER 19:27 → ER IP 20:08 → MEDSURG 07-09 06:26
PROVIDERS: Admitting Provider Internal Medicine; Emergency Provider Emergency Medicine; PCP Family Medicine; Visit Provider Family Medicine
DX: I69.354 Hemiplegia and hemiparesis following cerebral infarction affecting left non-dominant side (principal); M51.16 Intervertebral disc disorders with radiculopathy, lumbar region; R29.6 Repeated falls; R53.1 Weakness; Z79.4 Long term (current) use of insulin; Z79.82 Long term (current) use of aspirin; Z79.890 Hormone replacement therapy; Z79.899 Other long term (current) drug therapy; Z88.0 Allergy status to penicillin; F41.1 Generalized anxiety disorder; J43.9 Emphysema, unspecified; K21.9 Gastro-esophageal reflux disease without esophagitis; E03.9 Hypothyroidism, unspecified; E78.5 Hyperlipidemia, unspecified; G47.33 Obstructive sleep apnea (adult) (pediatric); M06.9 Rheumatoid arthritis, unspecified; F43.10 Post-traumatic stress disorder, unspecified; Z90.710 Acquired absence of both cervix and uterus; F17.210 Nicotine dependence, cigarettes, uncomplicated; R26.9 Unspecified abnormalities of gait and mobility; E11.311 Type 2 diabetes mellitus with unspecified diabetic retinopathy with macular edema; F33.1 Major depressive disorder, recurrent, moderate; E11.65 Type 2 diabetes mellitus with hyperglycemia; J41.0 Simple chronic bronchitis; F19.20 Other psychoactive substance dependence, uncomplicated; F41.0 Panic disorder [episodic paroxysmal anxiety]; N39.0 Urinary tract infection, site not specified
CPT/HCPCS: 36415; 36416; 36600; 70450; 76770; 80048; 80051; 80053; 81001; 82009; 82330; 82607; 82805; 82962; 83036; 83735; 84100; 85025; 85378; 86140; 96372; 96374; 96375; 97110; 97116; 97161; 97165; 97530; 99285; G0378; J0696; J1650; J1815; J2060; J2270; J7030

== ENCOUNTER 2024-10-07 08:09 | Outpatient (CLI) | payer OTHER, MEDICAID, SELFPAY ==
[2024-10-07 09:13] LABS: Free T4 Free Thyroxine 1.05 ng/dL (0.82-1.77); Thyroid Stimulating Hormone 21.51 uIU/mL (0.27-4.20)
== END 2024-10-07 08:10 | disposition home or self-care (01) ==
PROVIDERS: PCP Family Medicine; Visit Provider Internal Medicine
DX: E11.311 Type 2 diabetes mellitus with unspecified diabetic retinopathy with macular edema (principal); E03.9 Hypothyroidism, unspecified
CPT/HCPCS: 36415; 84439; 84443

== ENCOUNTER → 2024-10-08 14:08 | Outpatient (BNVA) | payer OTHER, MEDICAID, SELFPAY | PROVIDERS: PCP Family Medicine; Visit Provider Orthopaedic Surgery | DX: Z01.818 Encounter for other preprocedural examination (principal); M48.062 Spinal stenosis, lumbar region with neurogenic claudication; M51.16 Intervertebral disc disorders with radiculopathy, lumbar region | CPT/HCPCS: 36415; 80053; 81001; 83036; 85025 ==

== ENCOUNTER → 2024-10-17 15:08 | Outpatient (BNVA) | payer OTHER, MEDICAID, SELFPAY | PROVIDERS: PCP Family Medicine; Visit Provider Family Medicine | DX: L03.115 Cellulitis of right lower limb (principal); S80.811A Abrasion, right lower leg, initial encounter; W55.03XA Scratched by cat, initial encounter | CPT/HCPCS: 87070; 87077; 87184 ==

== ENCOUNTER 2024-10-23 08:41 | Outpatient (CLI) | payer OTHER, MEDICAID, SELFPAY ==
--- NOTE | 2024-10-23 09:00 | CT_ITS ---
WS: [id number] LDCT LUNG CANCER SCREENING TECHNIQUE: Noncontrast CT of the chest with coronal and sagittal reformatted images. CLINICAL INFORMATION: smoker; 27pk year; screening COMPARISON: None. DLP: 69.81 mGy.cm DIvol: Mean CTDIvol: 1.50 (mGy) All CT scans at [facility] use at least one of these dose optimization techniques: automated exposure control; mA and/or kV adjustment per patient size (includes targeted exams where dose is matched to clinical indication); or iterative reconstruction. FINDINGS: 3 mm nodule RIGHT lung apex. Tiny noncalcified nodule RIGHT upper lobe laterally. Subsegmental atelectasis in the RIGHT middle lobe. Tiny noncalcified nodule LEFT upper lobe anteriorly Thoracolumbar scoliosis. Nodular LEFT thyroid. Normal caliber thoracic aorta. Vascular calcification. Coronary calcification. No mediastinal or hilar lymphadenopathy. No axillary lymphadenopathy. Small esophageal hiatal hernia. Splenic granulomas. Splenic artery calcification. CT/CT lung screening [id number] IMPRESSION: LUNG-RADS: 2-Benign Appearance or Behavior FOLLOW UP: 12 Month: Continue annual screening with LDCT
== END 2024-10-23 08:42 | disposition home or self-care (01) ==
PROVIDERS: PCP Family Medicine; Visit Provider Family Medicine
DX: Z12.2 Encounter for screening for malignant neoplasm of respiratory organs (principal); F17.200 Nicotine dependence, unspecified, uncomplicated; R91.1 Solitary pulmonary nodule; J98.11 Atelectasis; M41.85 Other forms of scoliosis, thoracolumbar region; E04.1 Nontoxic single thyroid nodule; I70.90 Unspecified atherosclerosis; I25.10 Atherosclerotic heart disease of native coronary artery without angina pectoris; K44.9 Diaphragmatic hernia without obstruction or gangrene; D73.89 Other diseases of spleen; I70.8 Atherosclerosis of other arteries
CPT/HCPCS: 71271

== ENCOUNTER → 2024-10-30 09:35 | Outpatient (BNVA) | payer OTHER, MEDICAID, SELFPAY | PROVIDERS: PCP Family Medicine; Visit Provider Family Medicine | DX: Z01.818 Encounter for other preprocedural examination (principal) | CPT/HCPCS: 85007; 85027 ==

== ENCOUNTER 2024-11-01 05:34 | Day surgery (SDC) | payer OTHER, MEDICAID, SELFPAY ==
[2024-11-01] VITALS (10 sets, daily range): BP systolic 98–158; BP diastolic 50–95; PULSE 74–81; RESP 15–24; TEMP 36.1–36.4; O2SAT 90–99; BMI 27.4
--- NOTE | 2024-11-01 06:05 | ANES.PREANE2 ---
Pre-Anesthetic Assessment Height/Weight: Height 5 ft 3 in Weight 155 lb Temp Pulse Resp BP Pulse Ox O2 Del Method 97.0 F L 77 18 142/86 99 Room Air 11/01/24 05:56 11/01/24 05:56 11/01/24 05:56 11/01/24 05:56 11/01/24 05:56 11/01/24 05:56 Preop Diagnosis: Lumbar stenosis with neurogenic claudication Operation Date: 11/01/24 07:00 Proposed Procedures p Lumbar Spine Decompression(Not Applicable) - Darwin Grey, DO Was Beta Lorie taken within 24 hours: Yes Was Clonidine taken within 24 hours: N/A Last intake: Intake Last Liquid Date 10/31/24 Last Liquid Time 22:30 Last Solid Date 10/31/24 Last Solid Time 18:00 Social Tobacco and No alcohol Exam alert, oriented x 3, clear to auscultation bilaterally and regular rate & rhythm Airway Submandibular: within normal limits Mallampati: Class II Comments: Comments: Edentulous Anesthetic Plan ASA status: 4 Anesthesia: General Other: No prior issues with anesthesia NPO since yesterday evening History of COPD, current smoker JOSE no treatment GERD on Protonix Hypertension on losartan and metoprolol Hep C, did not finish treatment Prior polysubstance abuse, methamphetamines. Last use 2019 SVT, s/p ablation Patient had a stroke in April, on chronic Plavix. Last taken 10/17/2024 Type 2 diabetes, on chronic insulin. Preop BS 188 Recently treated for cellulitis of the right foot/leg Plan for GETA Medications/Allergies Home Medications ?Medication ?Instructions ?Recorded ?Confirmed ?Last Taken ?Type aspirin 325 mg tablet 325 mg PO DAILY 11/15/23 11/01/24 10/17/24 History metoprolol tartrate 25 mg tablet 25 mg PO BID tachycardia #60 tabs 03/07/24 11/01/24 10/31/24 Rx cetirizine 10 mg tablet (Zyrtec) 10 mg PO DAILY PRN allergy 04/26/24 11/01/24 05/06/24 Rx symptoms #60 tabs losartan 25 mg tablet 25 mg PO DAILY #30 tabs 05/14/24 11/01/24 10/31/24 Rx clopidogrel 75 mg tablet (Plavix) 75 mg PO DAILY #30 tabs 01/11/01/24 10/17/24 Rx pantoprazole 40 mg tablet,delayed 40 mg PO DAILY #90 tabs 07/16/24 11/01/24 10/31/24 Rx release blood-glucose sensor (Dexcom G7 #3 ea 07/29/24 10/30/24 Unknown Rx Sensor device) blood-glucose,poultry hatchery supervisor,cont #1 ea 07/29/24 10/30/24 Unknown Rx (Dexcom G7 Lighting Adviser) atorvastatin 40 mg tablet 40 mg PO DAILY #30 tabs 08/30/24 11/01/24 10/31/24 Rx fluoxetine 20 mg capsule (Prozac) 20 mg PO DAILY #30 caps 09/26/24 11/01/24 10/31/24 Rx insulin pump cartridge,auto #1 ea 10/11/24 10/30/24 Unknown Rx dose,BT,G6/G7 with controller subcutaneous (Omnipod 5 G6-G7 Intro Kit(Gen 5) subcutaneous cartridge and controller) levothyroxine 88 mcg tablet 88 mcg PO DAILY #30 tabs 10/11/24 11/01/24 10/31/24 Rx (Synthroid) Rollator Walker #1 ea 10/17/24 10/30/24 Unknown Rx insulin glargine 100 unit/mL (3 42 unit SUBCUT QAM 10/30/24 11/01/24 10/31/24 History mL) subcutaneous pen (Lantus Solostar U-100 Insulin) insulin lispro 100 unit/mL 5 unit SUBCUT TID PRN sliding scale 10/30/24 11/01/24 10/31/24 History subcutaneous pen (Humalog KwikPen (U-100) Insulin) insulin pump cart,auto,BT,G6/7 #5 ea 10/31/24 Unknown Rx (Omnipod 5 G6-G7 Pods (Gen 5) subcutaneous cartridge) Allergies Allergy/AdvReac Type Severity Reaction Status Date / Time amoxicillin Allergy Unknown Verified 11/01/24 05:53 [facility] Anesthesia Medical History Hx of cerebral infarction CVA R thalamic infarct--residual L side hemiplegia Hepatitis C treatment with Dr. Morgan ~1999 with interferon; went to ID and tried new treatment but didn't finish treatment b/c of med side effects Hemiplegia of left nondominant side as late effect of cerebral infarction Lumbar disc disease with radiculopathy Supraventricular tachycardia (~04/2020) identified during ED visit 04/2020, treated with 6mg adenosine with conversion to sinus; had ablation; now on metoprolol Generalized anxiety disorder with panic attacks Smokers' cough Diabetic macular edema Diabetic retinopathy, nonproliferative, severe Polysubstance (including opioids) dependence w/o physiol dependence smoker, severe cannabis, Opioid, Methamphetamines Insomnia Smoker COPD (chronic obstructive pulmonary disease) with emphysema Scoliosis associated with other condition Hemochromatosis carrier Diabetes type 2, uncontrolled PTSD (post-traumatic stress disorder) Osteoarthritis involving multiple joints on both sides of body GERD (gastroesophageal reflux disease) JOSE (obstructive sleep apnea) per sleep study 2010, CPAP of 13 recommended at that time, no longer with machine Dyslipidemia Hypothyroidism Surgical History History of radiofrequency ablation procedure for cardiac arrhythmia for SVT; done in [facility] [place] Hx of colonoscopy 7.14.22 normal; repeat 10 yrs Hx of cataract surgery bilateral eye History of umbilical hernia repair (~2011) History of incision and drainage (~2013) left upper extremity and R lower extremity abscesses in past History of tubal ligation History of hysterectomy (~2011) also Kimberly urethral plication still has ovaries; hyst done for pain; no cancer Family History Father Diabetes CAD (coronary artery disease) Mother Diabetes Grandfather Postsurgical cardiac pacemaker in situ Diabetes mellitus, type 2 Denies family history of Stroke Social History Smoking and tobacco/nicotine status: current every day tobacco/nicotine user cigarettes Packs smoked per day: 0.5 Years cigarettes smoked: 33 [ Other cigarette details: started age 13; avg 3/4 ppd ] Quit status (tobacco/nicotine): has tried quititng Number of times tried to quit tobacco: 5 Second hand smoke exposure: Yes Alcohol intake: former Former alcohol use details: only as a teenager Substance/Drug Use: former Date of last use: IV drug use - 2019 Former substance use details: current marijuana Caregiver/support person: No Lives independently: Yes Household members: spouse Housing: House Marital status: Number of children: 2 Number of grandchildren: 0 Highest education level completed: High School Graduate service: No Current occupational status: unemployed 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
[2024-11-01 06:13] LABS: Glucose Point of Care 188 mg/dL (70-110)
[2024-11-01] MEDS: sodium chloride 0.9% 1,000 ML 30 ML IV (06:14)
--- NOTE | 2024-11-01 06:25 | W.PM.OPSUD ---
Surgery/Procedure H&P Update DATE OF PROCEDURE: November 01, 2024 DATE H&P PERFORMED: 10/08/24 H&P UPDATE INFORMATION: I have reviewed H&P completed within last 30 days, I have examined patient prior to procedure and No changes to prior documentation PREOP DIAGNOSIS: Lumbar stenosis with neurogenic claudication PLANNED PROCEDURE: Operation Date: 11/01/24 07:00 Proposed Procedures p Lumbar Spine Decompression(Not Applicable) - Darwin Grey DO
[2024-11-01] MEDS: clindamycin 600 MG/50 ML PREMIX 100 MG IV (06:56)
[2024-11-01] MEDS: lidocaine-epi 1% 20 mL INJ 10 ML INJECTION (07:38)
--- NOTE | 2024-11-01 08:06 | XR_ITS ---
WS: [id number] Lumbar spine, C-arm fluoroscopy views, 11/01/2024 Clinical Data: OR PICS Comparison: Lumbar spine, 05/14/2024 Findings: Dr. Grey performed a lumbar decompression. XR/XR lumbar spine 2-3V* [id number] Impression: Lumbar decompression. .
--- NOTE | 2024-11-01 08:22 | PM.OP ---
Operative Report Date of procedure: November 01, 2024 Pre-op diagnosis: Lumbar stenosis neurogenic claudication Post-op diagnosis: same Procedure done: Revision L4-5 laminectomy with partial facetectomy Surgeon: Darwin Grey DO Estimated blood loss (mL): 5 Procedure: Revision L4-5 laminectomy with partial facetectomy Patient is brought to the operative suite. After undergoing anesthesia they are placed in the prone position. All areas of impingement are well padded. Patient is then prepped and draped in the normal sterile fashion. A skin incision is made over the L4/5 level. This is confirmed under c-arm guidance. A series of dilators are passed and the tubular retractor is docked on the L4 lamina. A bovie is used to clear the soft tissue off the lamina and the L 4/5 facet joint. A high speed lenin is then used to perform the laminectomy and take down the medial aspect of the L 4/5 facet joint. A kerrison rongeure was then used to take down the remaining lamina and smooth the edge of the laminectomy up to the point where the ligamentum flavum attaches. Attention was then brought to the medial aspect of the facet joint. The remaining medial aspect of the superior and inferior aspect of the facet joint were taken down with the kerrison from the pedicle of L4 to L 5. The facet joint had significant hypertrophy. Attention was then brought to the Ligamentum Flavum. The ligament was taken down from the lamina of L4 to L5 and out medially to the remaining facet joint. The ligament was thick and scarred.. The dura was then exposed. The dura was in good repair. The L4 nerve was then traced with a curette out the L4/5 foramen and found to be adequately decompressed. The L5 nerve was traced with a curette around the L5 pedicle. The lateral recess was opened with a kerrison helping to further decompress the L5 nerve. Wound is then irrigated copiously with saline and surgiflo is used to stop any bleeding. The tubular retractor is removed and the wound is closed with vicryl and monocryl suture. Glue is then used to protect the wound. A sterile dressing is then placed. Patient was then placed in the supine position and transferred to the PACU in stable condition.
--- NOTE | 2024-11-01 09:03 | PC.NURSE ---
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 No numbness or tingling noted by patient except her normal numbness on the left side d/t prior stroke. Dr. Grey notified per Arron in OR room 2. She will come assess patient.
--- NOTE | 2024-11-01 09:11 | SUR.PHASEII ---
Patient has area of swelling at incision site, this has been reported and checked by Luz. Will monitor incision until Dr. Grey can evaluate. Patient able to move legs and feet normally.
--- NOTE | 2024-11-01 09:24 | SUR.PHASEII ---
Dr. Grey came and evaluated patient's incision. He stated she was fine to go home, he placed a new silverlong dressing over incision. He instructed patient to put ice on the incision and return to the hospital if it got bigger.
[2024-11-01] MEDS: HYDROcodone-acetaminophen 5-325 mg Tablet 1 TAB PO (09:46)
--- NOTE | 2024-11-01 10:28 | ANE.PACU2 ---
Inpatient post-anesthesia follow up: Airway intact: Yes Vital signs: Temperature 97.6 F Pulse Rate 77 Respiratory Rate 18 Blood Pressure 121/71 Pulse Oximetry 95 Oxygen Delivery Me thod Room Air Oxygen Flow Rate 8 Fraction of Inspir ed Oxygen Hydration adequate: Yes Nausea and vomiting: No Pain level: 1 Mental status: Baseline
--- NOTE | 2024-11-01 10:28 | SUR.PHASEII ---
Patient ambulated to bathroom before discharge. Area of swelling at incision was unchanged at time of d/c. Dressing intact.
== END 2024-11-01 10:29 | disposition home or self-care (01) ==
PROVIDERS: PCP Family Medicine; Visit Provider Orthopaedic Surgery
PROC: (CPT 63005; principal; 2024-11-01 07:00)
DX: M48.062 Spinal stenosis, lumbar region with neurogenic claudication (principal); J44.9 Chronic obstructive pulmonary disease, unspecified; G47.33 Obstructive sleep apnea (adult) (pediatric); I10 Essential (primary) hypertension; B18.2 Chronic viral hepatitis C; F15.11 Other stimulant abuse, in remission; E11.9 Type 2 diabetes mellitus without complications; Z79.4 Long term (current) use of insulin; Z79.82 Long term (current) use of aspirin; E03.9 Hypothyroidism, unspecified; E78.5 Hyperlipidemia, unspecified; F17.210 Nicotine dependence, cigarettes, uncomplicated
CPT/HCPCS: 63047; 36416; 72100; 76000; 82962; J0171; J1100; J1885; J2250; J2371; J2405; J2704; J3010; J3490; J3535; J7030; J9999

== ENCOUNTER 2024-11-12 11:33 | Outpatient (RCR) | payer OTHER, MEDICAID, SELFPAY | END 2024-11-18 23:59 | disposition home or self-care (01) | LOC: SPT 11:33 | PROVIDERS: PCP Family Medicine; Visit Provider Psychiatry & Neurology Neurology | DX: I63.9 Cerebral infarction, unspecified (principal) | CPT/HCPCS: 97161 ==

== ENCOUNTER 2024-11-19 05:00 | Outpatient (RCR) | payer OTHER, MEDICAID, SELFPAY | END 2024-12-19 23:59 | disposition home or self-care (01) | LOC: SPT 05:00 | PROVIDERS: PCP Family Medicine; Visit Provider Psychiatry & Neurology Neurology | DX: I63.9 Cerebral infarction, unspecified (principal) | CPT/HCPCS: 97110; 97112 ==

== ENCOUNTER 2024-11-21 12:27 | Outpatient (CLI) | payer OTHER, MEDICAID, SELFPAY ==
--- NOTE | 2024-11-21 13:00 | MM_ITS ---
WS: [id number] BILATERAL SCREENING DIGITAL TOMOSYNTHESIS MAMMOGRAM WITH CAD HISTORY: screening COMPARISON: None available. Bilateral CC and MLO views with tomosynthesis and synthetic mammography submitted. Computer aided detection analyzed. Breast composition: There are scattered areas of fibroglandular density. No suspicious masses, microcalcifications or architectural distortion. Benign calcifications in each breast. No suspicious mass or grouping of calcification. MM/MM scr BI tomosynthesis [id number] IMPRESSION: BI-RADS: 2 - Benign. FOLLOW UP: 1 Year Follow-up
== END 2024-11-21 12:28 | disposition home or self-care (01) ==
LOC: RAD 12:28
PROVIDERS: PCP Family Medicine; Visit Provider Family Medicine
DX: Z12.31 Encounter for screening mammogram for malignant neoplasm of breast (principal); R92.323 Mammographic fibroglandular density, bilateral breasts; R92.1 Mammographic calcification found on diagnostic imaging of breast
CPT/HCPCS: 77063; 77067

== ENCOUNTER 2024-11-27 15:38 | Emergency (ER) | payer OTHER, MEDICAID, SELFPAY ==
--- OUTSIDE RECORDS SUMMARY | 2024-01-03 03:00 | XMS_ITS ---
Author Organization [facility] Address [address] [place] [address] Support Name Relationship Address , May [place] Emergency Contact Unknown Unavailable Mena Bains Guarantor Unknown [phone] Care Team Providers Care Rubber Flap Cutter Name Role Phone Israel Otero MD Primary Care Provider Unavailab Radha Dawson Unavailable [phone] Kourtney Verde Unavailable [phone] REASON FOR VISIT 1 mo f/u Encounters Encounter Location Date Provider Diagnosis [facility] [address] [place] [address] 01/03/2024 Kourtney Verde Plan Of Treatment No Information Progress Notes * Mena BAINS MDOB:[birth year] (49 yo F)Acc No.[id number]:01/03/2024 Progress Notes Patient: Mena JIN Provider: Sandy Verde MD :1975 A ge:48 Y S ex:Female Date:01/03/2024 Address:[address] [place], [place] [id number] Pcp:Israel Otero MD Subjective: * Chief Complaints: * 1 . 1 mo f/u. * Medical History: Objective: * Vitals: Assessment: Plan: * Treatment: Forms: * Billing Information: * Visit Code: * Procedure Codes: Care Plan Details* * Electronic signature of Kourtney Verde MD on 11/27/2024 at 03:50 PM CDT Sign off status: Pending * Provider: Sandy Verde MD Date: 01/03/2024 Generated for Printi ng/Faxing/eTransmitting on: 11/27/2024 03:50 PM CDT
--- OUTSIDE RECORDS SUMMARY | 2024-03-16 04:00 | XMS_ITS ---
Author Organization [facility] Address [address] [place] [address] Support Name Relationship Address , September [place] Emergency Contact Unknown Unavailable Mena Bains Guarantor Unknown [phone] Care Team Providers Care Pipe Insulator Name Role Phone Israel Otero MD Primary Care Provider Unavailab Radha Dawson Unavailable [phone] Migration, Provider Unavailable Unavailable REASON FOR VISIT EMR-Ba Encounters Encounter Location Date Provider Diagnosis Migrated_Facility 0 0 03/16/2024 Provider Migration Plan Of Treatment No Information Progress Notes * Mena BAINS MDOB:[birth year] (49 yo F)Acc No.[id number]:03/16/2024 Patient: Lizbeth CHARISSEMena :1975 A ge:48 Y S ex:Female Address:[address] [place] [address] Subjective: * Chief Complaints: * E MR-Ba * Medical History: * Surgical History: * Hospitalization/Major Diagno stic Procedure: * Medications: Objective: * Vitals: * Physical Examination: Assessment: Plan: * Treatment: * Procedure Codes: * * Date:
--- OUTSIDE RECORDS SUMMARY | 2024-03-17 04:00 | XMS_ITS ---
Author Organization [facility] Address [address] [place] [address] Support Name Relationship Address , May [place] Emergency Contact Unknown Unavailable Mena Bains Guarantor Unknown [phone] Care Team Providers Care Import And Export Clerk Name Role Phone Israel Otero MD Primary Care Provider Unavailab Radha Dawson Unavailable [phone] Migration, Provider Unavailable Unavailable Allergies Allergen (clinical drug ingredient) Drug/Non Drug Allergy documented on EMR Reaction Allergy Type Onset Date Status amoxicillin Amoxicillin yeast infections Drug Allergy Active REASON FOR VISIT EMR-Ba Medications Medication SIG (Take, Route, Frequency, Duration) Notes Start Date End Date Status Levothyroxine *Reorder from [facility] for eRx and Interaction Alerts* Active Omeprazole *[facility]* Active Ondansetron HCl *[facility]* Active Metoprolol Succinate *Pick stren gth-form from [facility] for eRX* Active Gabapentin *[facility]* Active Pregabalin *[facility]* Active Lantus U-100 Insulin *Reorder fr om [facility] for eRx and Interaction Alerts* Active Novolog Flexpen U-100 Insulin *[facility]* Active Encounters Encounter Location Date Provider Diagnosis Migrated_Facility 0 0 03/17/2024 Provider Migration Plan Of Treatment No Information Progress Notes * Mena BAINS MDOB:[birth year] (49 yo F)Acc No.[id number]:03/17/2024 Patient: Lizbeth Mena SAUCEDO :1975 A ge:48 Y S ex:Female Address:[address] [place] [address] Subjective: * Chief Complaints: * E MR-Ba * Medical History: * Surgical History: b ack surgery Hysterectomy Tubal ligation * Hospitalization/Major Diagno stic Procedure: * Family History: M igrated Family History: [...] from [facility] for eRx and Interaction Alerts*Taking Levothyroxine , Notes to Pharmacist: *Reorder from [facility] for eRx and Interaction Alerts* * Allergies: A moxicillin: yeast infections - Allergy Objective: * Vitals: * Physical Examination: Assessment: Plan: * Treatment: * Procedure Codes: * * Date:
[2024-11-27 15:40] VITALS: BP 170/86; PULSE 98; TEMP 36.9; O2SAT 97
--- OUTSIDE RECORDS SUMMARY | 2024-11-27 15:51 | XMS_ITS | Patient Health Record ---
Author Organization [facility] Address [address] [place] [address] Support Name Relationship Address , May [place] Emergency Contact Unknown Unavailable Mena Cano Guarantor Unknown [phone] Care Team Providers Care Can Line Operator Name Role Phone Israel Otero MD Primary Care Provider UnavailRadha Ozuna Unavailable [phone] Migration, Provider Unavailable Unavailable Kourtney Verde Unavailable [phone] Reason For Referral No Information Medications Medication SIG (Take, Route, Frequency, Duration) Notes Start Date End Date Status Levothyroxine *Reorder from [facility] for eRx and Interaction Alerts* Active Pregabalin *Pick strength-f orm from [facility] for eRX* Active Lantus U-100 Insulin *Reorder fr om [facility] for eRx and Interaction Alerts* Active Omeprazole *Pick strength-f orm from [facility] for eRX* Active Novolog Flexpen U-100 Insulin *Reorder from [facility] for eRx and Interaction Alerts* Active Ondansetron HCl *Pick strength-f orm from [facility] for eRX* Active Metoprolol Succinate *Pick stren gth-form from [facility] for eRX* Active Gabapentin *Pick strength-f orm from [facility] for eRX* Active Encounters Encounter Location Date Provider Diagnosis Formerly [facility] [address] [place] [address] 12/05/2023 Kourtney Verde Migrated_Facility 0 0 03/16/2024 Provider Migration Migrated_Facility 0 0 03/17/2024 Provider Migration Plan Of Treatment No Information Insurance Providers Payer Name Payer Address Payer Phone Subscriber Number Group Number Insured Name Patient Relationship to Insured Coverage Start Date Coverage End Date [facility] [address] [address] [place] [address] [id number] Mena Cano Self - patient is the insured [place] Medicaid [address] [place] [address] [id number] Mena Cano Self - patient is the insured Medical (General) History Surgical History Surgery Date(Month/Year) back surgery Hysterectomy Tubal ligation
--- NOTE | 2024-11-27 15:57 | XRR_ITS ---
PROCEDURE INFORMATION: Exam: XR Left Hand Exam date and time: 11/27/2024 4:10 PM Age: 49 years old Clinical indication: Pain and injury or trauma; Fall; Blunt trauma (contusions or hematomas); Hand; Left; Additional info: Fall, pain TECHNIQUE: Imaging protocol: Radiologic exam of the left hand. Views: 3 or more views. COMPARISON: No relevant prior studies available. FINDINGS: Bones/joints: There is normal bony alignment. There is a punctate calcific density projecting dorsal to the base of the 5th metacarpal on the oblique view suspicious for a tiny chip fracture, age indeterminate. Remaining osseous structures appear intact. Joint spaces are preserved. Soft tissues: There appears to be mild soft tissue edema surrounding the wrist and proximal hand. A metallic ring projects over the mid diaphysis of the 4th proximal phalanx. XR/XR hand LT min 3V* [id number] IMPRESSION: 1. Mild soft tissue edema. 2. Punctate calcific density adjacent to the base of the 5th metacarpal suspicious for a tiny chip fracture, age indeterminate. Please correlate clinically.
--- NOTE | 2024-11-27 16:40 | ED_ITS ---
HPI - Extremity Problem General: Chief complaint: Extremity Injury, Upper Stated complaint: fell- left hand injury Time Seen by Provider: 11/27/24 15:56 Source: patient Mode of arrival: ambulatory Limitations: no limitations History of Present Illness: 49yo female presents for left hand pain and swelling. Patient reports she had a fall from her rolling walker on Monday. She states that she was sitting on the seat, fell asleep, and fell forward. She is not certain how she landed on her hand. States that she had a stroke in April and has left-sided deficits. Reports numbness of the left hand that is chronic from the stroke as well as weakness. Patient reports her daughter came over, told her that her hand was bruised and swollen, and advised her to be evaluated. Patient is able to move her fingers. She denies any other concerns at this time. Related Data Home Medications ?Medication ?Instructions ?Recorded ?Confirmed aspirin 325 mg tablet 325 mg PO DAILY 11/15/23 Held on 11/01/24. Instructions: Resume on 11/03/24. insulin lispro 100 unit/mL 5 unit SUBCUT TID PRN slidi ng scale 10/30/24 11/14/24 subcutaneous pen (Humalog KwikPen (U-100) Insulin) Previous Rx's ?Medication ?Instructions ?Recorded metoprolol tartrate 25 mg tablet 25 mg PO BID tachycar joe #60 tabs 03/07/24 cetirizine 10 mg tablet (Zyrtec) 10 mg PO DAILY PRN al lergy 04/26/24 symptoms #60 tabs losartan 25 mg tablet 25 mg PO DAILY #30 tabs 04/22 09/12 clopidogrel 75 mg tablet (Plavix) 75 mg PO DAILY #30 t abs 06/03/24 Held on 11/01/24. Instructions: Resume on 11/03/24. blood-glucose,environmental planning engineer,cont #1 ea 07/29/24 (Dexcom G7 Loom Cleaner) fluoxetine 20 mg capsule (Prozac) 20 mg PO DAILY #30 c aps 09/26/24 insulin pump cartridge,auto #1 ea 10/11/24 dose,BT,G6/G7 with controller subcutaneous (Omnipod 5 G6-G7 Intro Kit(Gen 5) subcutaneous cartridge and controller) levothyroxine 88 mcg tablet 88 mcg PO DAILY #30 tabs 0 10/11/24 (Synthroid) Rollator Walker #1 ea 10/17/24 insulin pump cart,auto,BT,G6/7 #5 ea 10/31/24 (Omnipod 5 G6-G7 Pods (Gen 5) subcutaneous cartridge) hydrocodone 5 mg-acetaminophen 325 1 - 2 tab PO .Q4-6H PRN pain 7 11/07/24 mg tablet days #40 tabs insulin glargine 100 unit/mL (3 See Rx Instructions .R oute 11/12/24 mL) subcutaneous pen (Lantus .COMPLEX #45 mL Solostar U-100 Insulin) ondansetron HCl 4 mg tablet 4 mg PO Q8H PRN nausea and 11/14/24 vomiting #30 tabs pregabalin 75 mg capsule 75 mg PO BID #60 caps blood-glucose sensor (Dexcom G7 #3 ea 11/20/24 Sensor device) pen needle, diabetic 31 gauge x #100 ea 11/20/2408/04 (Comfort EZ Pen [place]) pantoprazole 40 mg tablet,delayed 40 mg PO DAILY #90 t abs 11/23/24 release atorvastatin 40 mg tablet 40 mg PO DAILY #30 tabs 11/13 Allergies Allergy/AdvReac Type Severity Reaction Status Date / Time amoxicillin Allergy Unknown Verified 11/27/24 15:46 [facility] ED PFS: Medical History (Updated 11/27/24 @ 17:20 by NORRIS Jordan) Hypertension Screening for lung cancer LDCT 10.23.24; repeat one year Hx of cerebral infarction CVA R thalamic infarct--residual L side hemiplegia Hepatitis C treatment with Dr. Morgan ~1999 with interferon; went to ID and tried new treatment but didn't finish treatment b/c of med side effects Hemiplegia of left nondominant side as late effect of cerebral infarction Lumbar disc disease with radiculopathy Supraventricular tachycardia (~04/2020) identified during ED visit 04/2020, treated with 6mg adenosine with conversion to sinus; had ablation; now on metoprolol Generalized anxiety disorder with panic attacks Smokers' cough Diabetic macular edema Diabetic retinopathy, nonproliferative, severe Polysubstance (including opioids) dependence w/o physiol dependence smoker, severe cannabis, Opioid, Methamphetamines Insomnia Smoker LDCT 10.23.24 neg COPD (chronic obstructive pulmonary disease) with emphysema Scoliosis associated with other condition Hemochromatosis carrier Diabetes type 2, uncontrolled PTSD (post-traumatic stress disorder) Osteoarthritis involving multiple joints on both sides of body GERD (gastroesophageal reflux disease) JOSE (obstructive sleep apnea) per sleep study 2010, CPAP of 13 recommended at that time, no longer with machine Dyslipidemia Hypothyroidism Surgical History History of lumbar surgery 11.01.24 Dr. Grey; revision L4-5 Laminectomy and fascectomy History of radiofrequency ablation procedure for cardiac arrhythmia for SVT; [place] [facility] [place]x of colonoscopy 7 normal; repeat 10 yrs Hx of cataract surgery bilateral eye History of umbilical hernia repair (~2011) History of incision and drainage (~2013) left upper extremity and R lower extremity abscesses in past History of tubal ligation History of hysterectomy (~2011) also Kimberly urethral plication still has ovaries; hyst done for pain; no cancer Family History Father Diabetes CAD (coronary artery disease) Mother Diabetes Grandfather Postsurgical cardiac pacemaker in situ Diabetes mellitus, type 2 Denies family history of Stroke Social History Smoking and tobacco/nicotine status: current every day tobacco/nicotine user cigarettes Packs smoked per day: 0.5 Years cigarettes smoked: 33 [ Other cigarette details: started age 13; avg 3/4 ppd ] Quit status (tobacco/nicotine): has tried quititng Number of times tried to quit tobacco: 5 Second hand smoke exposure: Yes Alcohol intake: former Former alcohol use details: only as a teenager Substance/Drug Use: former Date of last use: IV drug use - 2019 Former substance use details: current marijuana Caregiver/support person: No Lives independently: Yes Household members: spouse Housing: House Marital status: Number of children: 2 Number of grandchildren: 0 Highest education level completed: High School Graduate service: No Current occupational status: unemployed Previous occupational history: before school Pets and animals: Yes Pets & animals: dog(s) Do you think of yourself as: Straight/Heterosexual Current gender identity: Female Sirena/Spiritism: Anabaptism Course Vital Signs: Vital signs: Vital Signs Temperature 98.4 F 11/27/24 15:40 Pulse Rate 93 11/27/24 17:43 Blood Pressure 163/94 11/27/24 17:43 Pulse Oximetry 97 11/27/24 17:43 Oxygen Delivery Me thod Room Air 11/27/24 15:40 MDM - Extremity (Nontraumatic) Medical Decision Making 49yo female here for evaluation of left hand pain and swelling following a fall 3 days ago. Patient is not sure how she landed on her hand. States left-sided deficits from a stroke in April that has left her with weakness and numbness on her left side. Patient is nontoxic in appearance. Vital signs are stable. No fracture or acute bony abnormality noted on the x-ray, soft tissue edema noted. There was concern of a possible tiny chip fracture along the base of the fifth metacarpal, patient had no tenderness at this point. Discussed findings with patient. Advised this is likely a hematoma/traumatic contusion. Elastic wrap applied. Advised elevation and application of a cool compress. Recommend she follow-up with primary care, call in the next few days with an update of symptoms and to discuss a recheck. Return precautions provided. Patient states understanding and has no further questions or concerns at this time. Medical Records I reviewed the patient's medical records. Lab Data Radiology Impressions Hand X-Ray 11/27/24 15:57 IMPRESSION: 1. Mild soft tissue edema. 2. Punctate calcific density adjacent to the base of the 5th metacarpal suspicious for a tiny chip fracture, age indeterminate. Please correlate clinically. All radiology interpretation(s) finalized by discharge Discharge Plan Discharge Patient Disposition: Home Clinical Impression: Contusion of left hand Qualifiers: Encounter type: initial encounter Qualified Code(s): S60.222A - Contusion of left hand, initial encounter Condition: Stable Prescriptions: No Action aspirin 325 mg tablet 325 mg PO DAILY clopidogrel [Plavix] 75 mg tablet 75 mg PO DAILY Qty: 30 3RF (DME) Dexcom G7 Loom Cleaner Misc See Rx Instructions .Route Qty: 1 0RF Rx Instructions: As directed cetirizine [Zyrtec] 10 mg tablet 10 mg PO DAILY PRN (Reason: allergy symptoms) Qty: 60 0RF levothyroxine [Synthroid] 88 mcg tablet 88 mcg PO DAILY Qty: 30 3RF (DME) Omnipod 5 G6-G7 Intro Kt(Gen5) Cartridge See Rx Instructions .Route Qty: 1 0RF Rx Instructions: As directed losartan 25 mg tablet 25 mg PO DAILY Qty: 30 2RF (DME) Katia Cleaning See Rx Instructions .Route .MEDSUPPLY Qty: 1 0RF Rx Instructions: As directed pregabalin 75 mg capsule 75 mg PO BID Qty: 60 5RF ondansetron HCl 4 mg tablet 4 mg PO Q8H PRN (Reason: nausea and vomiting) Qty: 30 2RF insulin lispro [Humalog KwikPen Insulin] 100 unit/mL insulin pen 5 unit SUBCUT TID PRN (Reason: sliding scale) metoprolol tartrate 25 mg tablet 25 mg PO BID Qty: 60 5RF fluoxetine [Prozac] 20 mg capsule 20 mg PO DAILY Qty: 30 0RF (DME) Omnipod 5 G6-G7 Pods (Gen 5) Cartridge See Rx Instructions .ROUTE .COMPLEX Qty: 5 3RF Dose Instruction: USE DIRECTED. CHANGE EVERY TWO DAYS Rx Instructions: USE DIRECTED. CHANGE EVERY TWO DAYS hydrocodone-acetaminophen 5-325 mg tablet 1 - 2 tab PO .Q4-6H PRN (Reason: pain) 7 Days Qty: 40 0RF insulin glargine [Lantus Solostar U-100 Insulin] 100 unit/mL (3 mL) insulin pen See Rx Instructions .ROUTE .COMPLEX Qty: 45 1RF Dose Instruction: INJECT 25 UNITS SUBCUTANEOUSLY EVERY MORNING Rx Instructions: INJECT 30 UNITS SUBCUTANEOUSLY EVERY MORNING and titrate to 40 as discussed in clinic (DME) Dexcom G7 Sensor Device See Rx Instructions .ROUTE .COMPLEX Qty: 3 3RF Dose Instruction: USE DIRECTED. CHANGE EVERY 10 DAYS Rx Instructions: USE DIRECTED. CHANGE EVERY 10 DAYS (DME) pen needle, diabetic [Comfort EZ Pen [place]] 31 gauge x 3/16 needle See Rx Instructions .Route Qty: 100 2RF Rx Instructions: As directed pantoprazole 40 mg tablet,delayed release (DR/EC) 40 mg PO DAILY Qty: 90 0RF atorvastatin 40 mg tablet 40 mg PO DAILY Qty: 30 2RF Discharge Orders: Discharge ED (Routine); Ordered 11/27/24 Ordered By: Wing Tan Referrals: Marly Goss MD [Primary Care Provider, Family Practice] Discharge Diet: Usual diet Discharge Activity: Increase activity as tolerated Patient Instructions: Hematoma (ED), Pain Management, Patient Portal & Lara Instructions Activity Restrictions/Additional Instructions: No acute fracture noted on the x-ray today. Injury is likely contusion/hematoma. An elastic wrap will help with the swelling. Elevation will help with swelling and pain. You may also apply a cool compress for 10 to 15 minutes at a time to help with swelling and pain. Follow-up with primary care, call in a few days with an update of symptoms and to discuss a recheck Return to the emergency department if any further injury, rapid worsening symptoms, and as needed Print Language: Angolan Coding Level of Care Code ED Director Global for Esperanza Hernandez
[2024-11-27 17:43] VITALS: BP 163/94; PULSE 93; O2SAT 97
== END 2024-11-27 17:45 | disposition home or self-care (01) ==
PROVIDERS: Emergency Provider Nurse Practitioner; PCP Family Medicine
DX: S60.222A Contusion of left hand, initial encounter (principal); Z79.4 Long term (current) use of insulin; Z79.02 Long term (current) use of antithrombotics/antiplatelets; Z79.82 Long term (current) use of aspirin; E78.5 Hyperlipidemia, unspecified; J44.9 Chronic obstructive pulmonary disease, unspecified; E11.319 Type 2 diabetes mellitus with unspecified diabetic retinopathy without macular edema; I10 Essential (primary) hypertension; W19.XXXA Unspecified fall, initial encounter
CPT/HCPCS: 73130; 99283

== ENCOUNTER 2024-12-14 21:42 | Emergency (ER) | payer OTHER, MEDICAID, SELFPAY ==
--- OUTSIDE RECORDS SUMMARY | 2024-03-16 04:00 | XMS_ITS ---
Author Organization [facility] Address [address] [place] [address] Support Name Relationship Address , September [place] Emergency Contact Unknown Unavailable Mena Bains Guarantor Unknown [phone] Care Team Providers Care Social Studies Department Chair Name Role Phone Israel Otero MD Primary Care Provider Unavailab Radha Dawson Unavailable [phone] Migration, Provider Unavailable Unavailable REASON FOR VISIT EMR-Ba Encounters Encounter Location Date Provider Diagnosis Migrated_Facility 0 0 03/16/2024 Provider Migration Plan Of Treatment No Information Progress Notes * Mena BAINS MDOB:[birth year] (49 yo F)Acc No.[id number]:03/16/2024 Patient: Lizbeth Mena SAUCEDO :1975 A ge:48 Y S ex:Female Address:[address] [place] [address] Subjective: * Chief Complaints: * E MR-Ba * * Date:
--- OUTSIDE RECORDS SUMMARY | 2024-03-17 04:00 | XMS_ITS ---
Author Organization [facility] Address [address] [place] [address] Support Name Relationship Address , May [place] Emergency Contact Unknown Unavailable Mena Bains Guarantor Unknown [phone] Care Team Providers Care Utilization Review Coordinator Name Role Phone Israel Otero MD Primary Care Provider Unavailab Radha Dawson Unavailable [phone] Migration, Provider Unavailable Unavailable Allergies Allergen (clinical [...] Mena BAINS MDOB:[birth year] (49 yo F)Acc No.[id number]:03/17/2024 Patient: Lizbeth Mena SAUCEDO :1975 A ge:48 Y S ex:Female [address] [place] [address] Subjective: * Chief Complaints: * E Tamia [...] Insulin , Notes to Pharmacist: [facility]*Taking Levothyroxine , Notes to Pharmacist: *[facility]* * Allergies: A moxicillin: yeast infections - Allergy * * Date:
--- OUTSIDE RECORDS SUMMARY | 2024-12-14 21:49 | XMS_ITS | Patient Health Record ---
Author Organization [facility] Address [address] [place] [address] Support Name Relationship Address , May [place] Emergency Contact Unknown Unavailable Mena Cano Guarantor Unknown [phone] Care Team Providers Care Setup Operator Name Role Phone Israel Otero MD Primary Care Provider UnavailRadha Ozuna Unavailable [phone] Migration, Provider Unavailable Unavailable Kourtney Verde Unavailable [phone] Reason For Referral No Information Medications Medication SIG (Take, Route, Frequency, Duration) Notes Start Date End Date Status Levothyroxine *Reorder from [facility] for eRx and Interaction Alerts* Active Pregabalin *Pick strength-f orm from [facility] for eRX* Active Lantus U-100 Insulin *Reorder fr om [facility] for eRx and Interaction Alerts* Active Omeprazole *Pick strength-f orm from [facility] for eRX* Active Novolog Flexpen U-100 Insulin *Reorder from [facility] for eRx and Interaction Alerts* Active Ondansetron HCl *Pick strength-f orm from [facility] for eRX* Active Metoprolol Succinate *Pick stren gth-form from [facility] for eRX* Active Gabapentin *Pick strength-f orm from [facility] for eRX* Active Social History Social History Additional Details Category Social Info Options Details Migrated Social History Migrated Social History Smoking - 1/2 PPD, Smoking status (MU) - Current some day smoker Encounters Encounter Location Date Provider Diagnosis Migrated_Facility 0 0 03/17/2024 Provider Migration Migrated_Facility 0 0 03/16/2024 Provider Migration Plan Of Treatment No Information Insurance Providers Payer Name Payer Address Payer Phone Subscriber Number Group Number Insured Name Patient Relationship to Insured Coverage Start Date Coverage End Date [facility] [employer] [address] [address] [place] [address] [id number] Mena Cano Self - patient is the insured [place] Medicaid [address] [place] [address] [id number] Mena Cano Self - patient is the insured Medical (General) History Surgical History Surgery Date(Month/Year) back surgery Tubal ligation Hysterectomy
[2024-12-14 21:51] VITALS: BP 159/110; PULSE 90; RESP 20; TEMP 36.9; O2SAT 100; BMI 28.0
[2024-12-14 21:55] VITALS: BP 159/110; PULSE 90; O2SAT 100
[2024-12-14 22:25] VITALS: PULSE 88; O2SAT 94
[2024-12-14 22:27] VITALS: BP 140/89
[2024-12-14] MEDS: morphine 4 mg/mL SDV 1 mL IVP (22:41)
[2024-12-14 22:43] VITALS: BP 150/96; PULSE 94; O2SAT 96
[2024-12-14 22:47] LABS: Hematocrit 38.8 % (36-47); Hemoglobin 13.40 g/dL (11.27-16.99); Mean Corpuscular HGB Conc 34.5 g/dL (30-55); Mean Corpuscular Hemoglobin 29.3 pg (27-33); Mean Corpuscular Volume 84.9 fl (85-98); Nucleated Red Blood Cells % 0 %; Platelet Count 361 10^3/cmm (157-399); Red Blood Count 4.57 10^6/uL (3.85-5.65); White Blood Count 10.22 10^3/uL (3.29-11.43)
[2024-12-14 22:49] LABS: Glucose Urine UA 2+ (Normal); Nitrate Urine Negative (Negative); Specific Gravity, Urine 1.025 (1.005-1.030)
[2024-12-14 22:54] LABS: Add Urine Microscopic? YES
[2024-12-14 22:58] LABS: INR 0.87 (0.8-1.2); Prothrombin Time 12.40 SECONDS (12.1-14.9)
[2024-12-14 23:05] LABS: Alanine Aminotransferase 9 U/L (0-33); Albumin Level 3.8 g/dL (3.5-5.2); Alkaline Phosphatase 109 U/L (35-105); Anion Gap 16.8 (5-19); Aspartate Amino Transferase 10 U/L (0-32); Blood Urea Nitrogen 12 mg/dL (6-20); Calcium 9.3 mg/dL (8.5-10.5); Carbon Dioxide 23 mmol/L (22-29); Chloride 100 mmol/L (98-107); Creatinine Clr Calc Pharmacy 105.2572; Globulin 3.1 g/dL (1.3-4.6); Glucose 194 mg/dL (65-115); Lipase 274 U/L (13-60); Osmolality Calculated 287 mOsm/kg (285-295); Potassium 3.8 mmol/L (3.5-5.1); Sodium 136 mmol/L (136-145); Total Protein 6.9 g/dL (6.6-8.7)
[2024-12-14 23:06] LABS: Lactic Sepsis W/Reflex 0.9 mmol/L (0.5-2.2)
[2024-12-14 23:10] LABS: UA Slide Review UA Slide Review Perf
--- NOTE | 2024-12-14 23:18 | CTR_ITS ---
PROCEDURE INFORMATION: Exam: CT Abdomen And Pelvis With Contrast Exam date and time: 12/14/2024 11:29 PM Age: 49 years old Clinical indication: Pain and abnormal findings; Abnormal lab test; Elevated lipase; Abdominal pain; Localized; Right upper quadrant (ruq); Prior surgery; Surgery date: 1-6 months; Surgery type: Lumbar surgery one month ago. Hysterctomy; Ruq pain with elevated lipase. TECHNIQUE: Imaging protocol: Computed tomography of the abdomen and pelvis with contrast. Radiation optimization: All CT scans at this facility use at least one of these dose optimization techniques: automated exposure control; mA and/or kV adjustment per patient size (includes targeted exams where dose is matched to clinical indication); or iterative reconstruction. Contrast material: OMNI 350; Contrast volume: 100 ml; Contrast route: INTRAVENOUS (IV); COMPARISON: CT abdomen pelvis w con* [id number] 01/30/2023 5:53 PM RADIATION DOSE METRICS: Total DLP (mGy-cm): 619.42 FINDINGS: Liver: Normal. No mass. Gallbladder and biliary ducts: Normal. No calcified stones. No ductal dilation. Pancreas: Normal. No ductal dilation. Spleen: Multiple punctate calcifications in the spleen consistent with prior granulomatous infection. Adrenal glands: Normal. No mass. Kidneys and ureters: Normal. No hydronephrosis. Stomach and bowel: Unremarkable. No obstruction. No mucosal thickening. Appendix: No evidence of appendicitis. Intraperitoneal space: Unremarkable. No free air. No significant fluid collection. Vasculature: Unremarkable. No abdominal aortic aneurysm. Lymph nodes: Unremarkable. No enlarged lymph nodes. Urinary bladder: Unremarkable as visualized. Reproductive: Unremarkable as visualized. Bones/joints: Levoscoliosis of the upper lumbar spine. Soft tissues: Unremarkable. CT/CT abdomen pelvis w con* [id number] IMPRESSION: 1. No bowel obstruction or inflammatory process associated with the bowel. 2. No free air or significant free fluid in the abdomen or pelvis. 3. No evidence of appendicitis.
[2024-12-14] MEDS: iohexol 350 mg/mL 500 mL Btl (per mL) IV (23:31)
--- NOTE | 2024-12-15 00:42 | W.ED.ABDPA2 ---
HPI - Abdominal Pain General: Chief Complaint: Abdominal Pain Stated Complaint: cp, abdomen pain Time Seen by Provider: 12/14/24 21:49 History of Present Illness: 49-year-old female with multiple medical problem history including stroke, diabetes, spinal stenosis, and prior episodes of pancreatitis. She presents with right upper quadrant pain, with nausea and vomiting. Related Data Home Medications ?Medication ?Instructions ?Recorded ?Confirmed aspirin 325 mg tablet 325 mg PO DAILY 11/15/23 12/10/24 Held on 11/01/24. Instructions: Resume on 11/03/24. insulin lispro 100 unit/mL 5 unit SUBCUT TID PRN sliding scale 10/30/24 12/10/24 subcutaneous pen (Humalog KwikPen (U-100) Insulin) Previous Rx's ?Medication ?Instructions ?Recorded metoprolol tartrate 25 mg tablet 25 mg PO BID tachycardia #60 tabs 03/07/24 losartan 25 mg tablet 25 mg PO DAILY #30 tabs 05/14/24 clopidogrel 75 mg tablet (Plavix) 75 mg PO DAILY #30 tabs 06/03/24 Held on 11/01/24. Instructions: Resume on 11/03/24. blood-glucose,taxation consultant,cont #1 ea 07/29/24 (Dexcom G7 Supervisor Chemical) insulin pump cartridge,auto #1 ea 10/11/24 dose,BT,G6/G7 with controller subcutaneous (Omnipod 5 G6-G7 Intro Kit(Gen 5) subcutaneous cartridge and controller) levothyroxine 88 mcg tablet 88 mcg PO DAILY #30 tabs 10/11/24 (Synthroid) Rollator Walker #1 ea 10/17/24 insulin glargine 100 unit/mL (3 See Rx Instructions .Route 11/12/24 mL) subcutaneous pen (Lantus .COMPLEX #45 mL Solostar U-100 Insulin) pregabalin 75 mg capsule 75 mg PO BID #60 caps 11/14/24 blood-glucose sensor (Dexcom G7 #3 ea 11/20/24 Sensor device) pen needle, diabetic 31 gauge x #100 ea 11/20/2408/04 (Comfort EZ Pen Willard) pantoprazole 40 mg tablet,delayed 40 mg PO DAILY #90 tabs 11/23/24 release atorvastatin 40 mg tablet 40 mg PO DAILY #30 tabs 11/24/24 fluoxetine 20 mg capsule (Prozac) 20 mg PO DAILY #30 caps 11/29/24 insulin pump cart,auto,BT,G6/7 #5 ea 12/05/24 (Omnipod 5 G6-G7 Pods (Gen 5) subcutaneous cartridge) cetirizine 10 mg tablet (Zyrtec) 10 mg PO DAILY PRN allergy 12/06/24 symptoms #90 tabs hydroxyzine HCl 25 mg tablet 25 mg PO TID PRN itching #90 tabs 12/06/24 hydrocodone 5 mg-acetaminophen 325 1 - 2 tab PO .Q4-6H PRN pain 7 12/15/24 mg tablet days #8 tabs ondansetron HCl 4 mg tablet 4 mg PO Q8H PRN nausea and 12/15/24 vomiting #20 tabs Allergies Allergy/AdvReac Type Severity Reaction Status Date / Time amoxicillin Allergy Unknown Verified 12/06/24 13:47 [facility] ED [facility]: Medical History (Updated 12/15/24 @ 00:46 by Randy Yeager DO) Hypertension Screening for lung cancer LDCT 10.23.24; repeat one year Hx of cerebral infarction CVA R thalamic infarct--residual L side hemiplegia Hepatitis C treatment with Dr. Morgan ~1999 with interferon; went to ID and tried new treatment but didn't finish treatment b/c of med side effects Hemiplegia of left nondominant side as late effect of cerebral infarction Lumbar disc disease with radiculopathy Supraventricular tachycardia (~04/2020) identified during ED visit 04/2020, treated with 6mg adenosine with conversion to sinus; had ablation; now on metoprolol Generalized anxiety disorder with panic attacks Smokers' cough Diabetic macular edema Diabetic retinopathy, nonproliferative, severe Polysubstance (including opioids) dependence w/o physiol dependence smoker, severe cannabis, Opioid, Methamphetamines Insomnia Smoker LDCT 10.23.24 neg COPD (chronic obstructive pulmonary disease) with emphysema Scoliosis associated with other condition Hemochromatosis carrier Diabetes type 2, uncontrolled PTSD (post-traumatic stress disorder) Osteoarthritis involving multiple joints on both sides of body GERD (gastroesophageal reflux disease) JOSE (obstructive sleep apnea) per sleep study 2010, CPAP of 13 recommended at that time, no longer with machine Dyslipidemia Hypothyroidism Surgical History History of lumbar surgery 11.01.24 Dr. Grey; revision L4-5 Laminectomy and fascectomy History of radiofrequency ablation procedure for cardiac arrhythmia for SVT; done in [facility] Hx of colonoscopy 7.. normal; repeat 10 yrs Hx of cataract surgery bilateral eye History of umbilical hernia repair (~2011) History of incision and drainage (~2013) left upper extremity and R lower extremity abscesses in past History of tubal ligation History of hysterectomy (~2011) also Kimberly urethral plication still has ovaries; hyst done for pain; no cancer Family History Father Diabetes CAD (coronary artery disease) Mother Diabetes Grandfather Postsurgical cardiac pacemaker in situ Diabetes mellitus, type 2 Denies family history of Stroke Social History Smoking and tobacco/nicotine status: never used tobacco/nicotine Quit status (tobacco/nicotine): has tried quititng Number of times tried to quit tobacco: 5 Second hand smoke exposure: Yes Alcohol intake: former Former alcohol use details: only as a teenager Substance/Drug Use: former Date of last use: IV drug use 2019 Former substance use details: current marijuana Caregiver/support person: No Lives independently: Yes Household members: spouse Housing: House Marital status: Number of children: 2 Number of grandchildren: 0 Highest education level completed: High School Graduate service: No Current occupational status: unemployed 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 Pets and animals: Yes Pets & animals: dog(s) Do you think of yourself as: Straight/Heterosexual Current gender identity: Female Sirena/Presybeterian: Hoahaoism Physical Exam Const: COMMON NORMALS: no acute distress GENERAL APPEARANCE: cooperative; not ill appearing and not frail appearing HENMT: COMMON NORMALS: normocephalic, atraumatic and Normal external nose present HEAD & SCALP: normocephalic and atraumatic FACE & SINUS: normal facial exam and face symmetric NOSE: Normal external nose present Eye: COMMON NORMALS: Equal, round and reactive pupils present and EOMs intact bilaterally PUPIL: Yes Equal, round and reactive pupils present Neck/C-Spine: GENERAL: Yes trachea midline Chest: CHEST: Yes Symmetrical chest wall rise Resp: COMMON NORMALS: normal respiratory effort, No retractions, No use of accessory muscles and clear to auscultation bilaterally AUSCULTATION: clear to auscultation bilaterally Cardio: COMMON NORMALS: regular rate and regular rhythm RATE: regular rate RHYTHM: regular rhythm GI: COMMON NORMALS: Normal to inspection, nondistended, normoactive bowel sounds present and Soft to palpation PALPATION: Yes Soft to palpation and Yes Tenderness to palpation present (GI) Details: RUQ Extremity: COMMON NORMALS: no pedal edema Neuro: KELLEN COMA SCALE: document GCS findings Eastman coma scale eye opening: Spontaneous Kellen coma scale verbal response: Orientated Kellen coma scale motor response: Obey commands Eastman coma scale total score: 15 SENSORY EXAM: Yes extremities (intact) Psych: COMMON NORMALS: speech normal SPEECH: Yes normal speech Skin: COMMON NORMALS: no rashes or lesions noted GENERAL SKIN EXAM: no rashes or lesions noted Course Vital Signs: Vital signs: Vital Signs Temperature 98.4 F 12/14/24 21:51 Pulse Rate 85 12/15/24 00:59 Respiratory Rate 20 H 12/14/24 21:51 Blood Pressure 138/82 12/15/24 00:59 Pulse Oximetry 97 12/15/24 00:59 Oxygen Delivery Me thod Room Air 12/14/24 22:25 MDM - Abdominal Pain Medical Decision Making Vitals are stable. She is afebrile. CBC and BMP are not remarkable. Sugar is 194. Lipase is 274. Liver enzymes are normal. Urinalysis reveals no urinary tract infection. CT shows no stones or hydronephrosis. Normal biliary system.No evidence of pancreatitis on CT. She will be allowed home. Pain medication and antiemetics. Liquid diet. She will need a repeat lipase. Lab Data 12/14/24 22:05 12/14/24 22:05 Labs/Radiology: Radiology Impressions Abdomen/Pelvis CT 12/14/24 23:18 IMPRESSION: 1. No bowel obstruction or inflammatory process associated with the bowel. 2. No free air or significant free fluid in the abdomen or pelvis. 3. No evidence of appendicitis. Laboratory Results WBC 10.22 10^3/uL (3.29-11.43) 12/14/24 22:05 RBC 4.57 10^6/uL (3.85-5.65) 12/14/24 22:05 Hgb 13.40 g/dL (11.27-16.99) 12/14/24 22:05 Hct 38.8 % (36-47) 12/14/24 22:05 MCV 84.9 fl (85-98) L 12/14/24 22:05 MCH 29.3 pg (27-33) 12/14/24 22:05 MCHC 34.5 g/dL (30-55) 12/14/24 22:05 RDW 12.5 % (12.1-15.1) 12/14/24 22:05 Plt Count 361 10^3/cmm (157-399) 12/14/24 22:05 MPV 9.2 fL (7.4-10.4) 12/14/24 22:05 Neut % (Auto) 59.7 % 12/14/24 22:05 Lymph % (Auto) 29.5 % 12/14/24 22:05 [place] % (Auto) 7.7 % 12/14/24 22:05 Eos % (Auto) 2.0 % 12/14/24 22:05 Baso % (Auto) 0.8 % 12/14/24 22:05 Neut # (Auto) 6.11 10^3/uL (1.8-7.7) 12/14/24 22:05 Lymph # (Auto) 3.0 10^3/uL (0.8-4.8) 12/14/24 22:05 [place] # (Auto) 0.8 10^3/uL (0.2-0.9) 12/14/24 22:05 Eos # (Auto) 0.2 10^3/uL (0.0-0.8) 12/14/24 22:05 Baso # (Auto) 0.1 10^3/uL (0.0-0.1) 12/14/24 22:05 Nucleated RBC % (auto) 0 % 12/14/24 22:05 Nucleated RBCs # 0.0 /100WBC 12/14/24 22:05 PT 12.40 SECONDS (12.1-14.9) 12/14/24 22:05 INR 0.87 (0.8-1.2) 12/14/24 22:05 Sodium 136 mmol/L (136-145) 12/14/24 22:05 Potassium 3.8 mmol/L (3.5-5.1) 12/14/24 22:05 Chloride 100 mmol/L (98-107) 12/14/24 22:05 Carbon Dioxide 23 mmol/L (22-29) 12/14/24 22:05 Anion Gap 16.8 (5-19) 12/14/24 22:05 BUN 12 mg/dL (6-20) 12/14/24 22:05 Creatinine 0.6 mg/dL (0.5-0.9) 12/14/24 22:05 GFR Calculation 105.4 mL/min (90-130) 12/14/24 22:05 Glucose 194 mg/dL (65-115) H 12/14/24 22:05 Calculated Osmolality 287 mOsm/kg (285-295) 12/14/24 22:05 Lactic Acid 0.9 mmol/L (0.5-2.2) 12/14/24 22:05 Calcium 9.3 mg/dL (8.5-10.5) 12/14/24 22:05 Total Bilirubin 0.3 mg/dL (0.15-1.2) 12/14/24 22:05 AST 10 U/L (0-32) 12/14/24 22:05 ALT 9 U/L (0-33) 12/14/24 22:05 Alkaline Phosphatase 109 U/L (35-105) H 12/14/24 22:05 C-Reactive Protein 3.0 mg/L (0.0-4.9) 12/14/24 22:05 Total Protein 6.9 g/dL (6.6-8.7) 12/14/24 22:05 Albumin 3.8 g/dL (3.5-5.2) 12/14/24 22:05 Globulin 3.1 g/dL (1.3-4.6) 12/14/24 22:05 Lipase 274 U/L (13-60) H 12/14/24 22:05 Urine Color Yellow (Yellow) 12/14/24 22:05 Urine Appearance Cloudy (CLEAR) A 12/14/24 22:05 Urine pH 5.5 (5-7) 12/14/24 22:05 Ur Specific [place] 1.025 (1.005-1.030) 12/14/24 22:05 Urine Protein 2+ (Negative) A 12/14/24 22:05 Urine Glucose (UA) 2+ (Normal) H 12/14/24 22:05 Urine Ketones Trace (Negative) 12/14/24 22:05 Urine Blood 2+ (Negative) A 12/14/24 22:05 Urine Nitrate Negative (Negative) 12/14/24 22:05 Urine Bilirubin Negative (Negative) 12/14/24 22:05 Urine Urobilinogen 1.0 mg/dL (Negative) 12/14/24 22:05 Ur Leukocyte Esterase Negative (Negative) 12/14/24 22:05 Urine RBC 6-10 /hpf (0-2) 12/14/24 22:05 Urine WBC 0-5 /hpf (0-5) 12/14/24 22:05 Ur Squamous Epith Cells 11-20 /hpf (0-5) H 12/14/24 22:05 Amorphous Sediment Not Reportable 12/14/24 22:05 Urine Bacteria 2+ /hpf (NONE) H 12/14/24 22:05 Hyaline Casts 2.46 /lpf 12/14/24 22:05 Urine Mucus 1+ /hpf 12/14/24 22:05 All radiology interpretation(s) finalized by discharge Discharge Plan Discharge Patient Disposition: Home Clinical Impression: Pancreatitis Condition: Stable Prescriptions: Continued hydrocodone-acetaminophen 5-325 mg tablet 1 - 2 tab PO .Q4-6H PRN (Reason: pain) 7 Days Qty: 8 0RF ondansetron HCl 4 mg tablet 4 mg PO Q8H PRN (Reason: nausea and vomiting) Qty: 20 2RF No Action aspirin 325 mg tablet 325 mg PO DAILY clopidogrel [Plavix] 75 mg tablet 75 mg PO DAILY Qty: 30 3RF (DME) Dexcom G7 Supervisor Chemical Misc See Rx Instructions .Route Qty: 1 0RF Rx Instructions: As directed levothyroxine [Synthroid] 88 mcg tablet 88 mcg PO DAILY Qty: 30 3RF (DME) Omnipod 5 G6-G7 Intro Kt(Gen5) Cartridge See Rx Instructions .Route Qty: 1 0RF Rx Instructions: As directed losartan 25 mg tablet 25 mg PO DAILY Qty: 30 2RF (DME) Rollator Walker See Rx Instructions .Route .MEDSUPPLY Qty: 1 0RF Rx Instructions: As directed pregabalin 75 mg capsule 75 mg PO BID Qty: 60 5RF insulin lispro [Humalog KwikPen Insulin] 100 unit/mL insulin pen 5 unit SUBCUT TID PRN (Reason: sliding scale) hydroxyzine HCl 25 mg tablet 25 mg PO TID PRN (Reason: itching) Qty: 90 0RF cetirizine [Zyrtec] 10 mg tablet 10 mg PO DAILY PRN (Reason: allergy symptoms) Qty: 90 1RF metoprolol tartrate 25 mg tablet 25 mg PO BID Qty: 60 5RF insulin glargine [Lantus Solostar U-100 Insulin] 100 unit/mL (3 mL) insulin pen See Rx Instructions .ROUTE .COMPLEX Qty: 45 1RF Dose Instruction: INJECT 25 UNITS SUBCUTANEOUSLY EVERY MORNING Rx Instructions: INJECT 30 UNITS SUBCUTANEOUSLY EVERY MORNING and titrate to 40 as discussed in clinic (DME) Dexcom G7 Sensor Device See Rx Instructions .ROUTE .COMPLEX Qty: 3 3RF Dose Instruction: USE DIRECTED. CHANGE EVERY 10 DAYS Rx Instructions: USE DIRECTED. CHANGE EVERY 10 DAYS (DME) pen needle, diabetic [Comfort EZ Pen Willard] 31 gauge x 3/16 needle See Rx Instructions .Route Qty: 100 2RF Rx Instructions: As directed pantoprazole 40 mg tablet,delayed release (DR/EC) 40 mg PO DAILY Qty: 90 0RF atorvastatin 40 mg tablet 40 mg PO DAILY Qty: 30 2RF fluoxetine [Prozac] 20 mg capsule 20 mg PO DAILY Qty: 30 0RF (DME) Omnipod 5 G6-G7 Pods (Gen 5) Cartridge See Rx Instructions .ROUTE .COMPLEX Qty: 5 0RF Dose Instruction: USE DIRECTED Rx Instructions: USE DIRECTED Discharge Orders: Discharge ED (Routine); Ordered 12/15/24 Ordered By: Randy Yeager Referrals: Marly Goss MD [Primary Care Provider, Family Practice] - 1-3 days Patient Instructions: Pancreatitis (ED), Opioid Safety, Pain Management, Patient Portal & Lara Instructions Activity Restrictions/Additional Instructions: Your tests reveal that you have a mild elevation in your pancreas enzymes consistent with mild pancreatitis. Your pancreas appears normal by imaging. Follow a liquid diet. No solids for the next 48 hours. Drink plenty of fluids. Pain medication to be used sparingly. Use nausea medication scheduled every 4 hours while awake for the first 24 hours then as needed. Follow-up with your doctor. You will need your pancreas enzymes rechecked in about 2 to 3 days. Call Monday for an appointment. Return for fever greater than 100 ?F, vomiting liquids or medications despite treatment, worsening pain despite treatment, any other concerning symptoms. Print Language: Divehi Coding Level of Care Code ED Kiln Furniture Caster for Esperanza Hernandez
[2024-12-15 00:59] VITALS: BP 138/82; PULSE 85; O2SAT 97
--- NOTE | 2024-12-15 10:07 | ECG_ITS ---
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 Measurements Intervals [place] Rate: 87 P: 48 GA: 157 QRS: 6 QRSD: 73 T: 31 QT: 372 QTc: 448 Interpretive Statements SINUS RHYTHM Compared to ECG 05/06/2024 15:06:23 No significant changes Electronically Signed On 12-15-2024 16:00:33 CDT by Avril [email or web address]
== END 2024-12-15 01:00 | disposition home or self-care (01) ==
PROVIDERS: Emergency Provider Emergency Medicine; PCP Family Medicine
DX: K85.90 Acute pancreatitis without necrosis or infection, unspecified (principal); Z79.82 Long term (current) use of aspirin; Z79.02 Long term (current) use of antithrombotics/antiplatelets; Z79.4 Long term (current) use of insulin; Z87.891 Personal history of nicotine dependence; E78.5 Hyperlipidemia, unspecified; J44.9 Chronic obstructive pulmonary disease, unspecified; E11.319 Type 2 diabetes mellitus with unspecified diabetic retinopathy without macular edema; Z86.73 Personal history of transient ischemic attack (TIA), and cerebral infarction without residual deficits
CPT/HCPCS: 74177; 80053; 81001; 83605; 83690; 85025; 85610; 86140; 93005; 96374; 96375; 99285; J1885; J2270; J7030

== ENCOUNTER 2024-12-20 05:00 | Outpatient (RCR) | payer OTHER, MEDICAID, SELFPAY | END 2025-01-19 23:59 | disposition home or self-care (01) | LOC: SPT 05:00 | PROVIDERS: PCP Family Medicine; Visit Provider Psychiatry & Neurology Neurology | DX: I63.9 Cerebral infarction, unspecified (principal) | CPT/HCPCS: 97110 ==

== ENCOUNTER 2024-12-30 12:20 | Outpatient (CLI) | payer OTHER, MEDICAID, SELFPAY ==
--- NOTE | 2024-12-30 12:45 | US_ITS ---
WS: [id number] ULTRASOUND SOFT TISSUES RIGHT lateral hip HISTORY: mobile quarter sized mass R lateral hip area COMPARISON: CT 12/14/2024 TECHNIQUE: 2-D and color Doppler imaging is submitted. Complex fluid infiltrating in the soft tissues over the RIGHT lateral hip in the area directed by the patient. This collection is infiltrating the soft tissues measuring 3.2 x 2.5 x 1.2 cm. There is no increased vascularity. This is not a well formed collection. On the recent CT from 12/14/2024 there was a similar collection in the soft tissues over the RIGHT hip. US/US soft tissue/extremity [id number] IMPRESSION: Small complex collection in lateral to the RIGHT hip. Collection measures 3.2 x 2.5 x 1.2 cm. Differential includes resolving hematoma/seroma or abscess.
== END 2024-12-30 12:21 | disposition home or self-care (01) ==
LOC: RAD 12:23
PROVIDERS: PCP Family Medicine; Visit Provider Family Medicine
DX: R22.41 Localized swelling, mass and lump, right lower limb (principal)
CPT/HCPCS: 76882

== ENCOUNTER → 2025-01-17 11:40 | Outpatient (BNVA) | payer OTHER, MEDICAID, SELFPAY | PROVIDERS: PCP Family Medicine; Visit Provider Internal Medicine | DX: E11.65 Type 2 diabetes mellitus with hyperglycemia (principal); E03.9 Hypothyroidism, unspecified | CPT/HCPCS: 36415; 80053; 80061; 82044; 83036; 84439; 84443 ==

== ENCOUNTER → 2025-04-03 09:44 | Outpatient (BNVA) | payer OTHER, MEDICAID, SELFPAY | PROVIDERS: PCP Family Medicine; Visit Provider Podiatrist Foot & Ankle Surgery | DX: E11.42 Type 2 diabetes mellitus with diabetic polyneuropathy (principal); L60.3 Nail dystrophy; L84 Corns and callosities; M21.611 Bunion of right foot; M21.612 Bunion of left foot; M21.41 Flat foot [pes planus] (acquired), right foot; M21.42 Flat foot [pes planus] (acquired), left foot; E11.621 Type 2 diabetes mellitus with foot ulcer; L97.522 Non-pressure chronic ulcer of other part of left foot with fat layer exposed; S90.32XA Contusion of left foot, initial encounter; W06.XXXA Fall from bed, initial encounter; Z79.4 Long term (current) use of insulin | CPT/HCPCS: 73630 ==

== ENCOUNTER 2025-05-03 09:56 | Emergency (ER) | payer OTHER, MEDICAID, SELFPAY ==
--- OUTSIDE RECORDS SUMMARY | 2024-03-16 03:00 | XMS_ITS ---
Author Organization [facility] Address [address] [place] [address] Support Name Relationship Address , September [place] Emergency Contact Unknown Unavailable Mena Bains Guarantor Unknown [phone] Care Team Providers Care Payroll Assistant Name Role Phone Israel Otero MD Primary Care Provider Unavailab Radha Dawson Unavailable [phone] Migration, Provider Unavailable Unavailable REASON FOR VISIT EMR-Ba Encounters Encounter Location Date Provider Diagnosis Migrated_Facility 0 0 03/16/2024 Provider Migration Plan Of Treatment No Information Progress Notes * Mena BAINS MDOB:[birth year] (49 yo F)Acc No.[id number]:03/16/2024 Patient: Lizbeth Mena SAUCEDO :1975 A ge:48 Y S ex:Female Address:[address] [place] [address] Subjective: * Chief Complaints: * E MR-Ba * * Date:
--- OUTSIDE RECORDS SUMMARY | 2024-03-17 03:00 | XMS_ITS ---
Author Organization [facility] Address [address] [place] [address] Support Name Relationship Address , May [place] Emergency Contact Unknown Unavailable Mena Bains Guarantor Unknown [phone] Care Team Providers Care Washing Machine Repairer Name Role Phone Israel Otero MD Primary Care Provider Unavailab Radha Dawson Unavailable [phone] Migration, Provider Unavailable Unavailable Allergies Allergen (clinical drug ingredient) Drug/Non Drug Allergy documented on EMR Reaction Allergy Type Onset Date Status amoxicillin Amoxicillin yeast infections Drug Allergy Active REASON FOR VISIT EMR-Ba Medications Medication SIG (Take, Route, Frequency, Duration) Notes Start Date End Date Status Levothyroxine *Reorder from [facility] for eRx and Interaction Alerts* Active Omeprazole *Pick strength-f orm from [facility] for eRX* Active Ondansetron HCl *Pick strength-f orm from [facility] for eRX* Active Metoprolol Succinate *Pick stren gth-form from [facility] for eRX* Active Gabapentin *Pick strength-f orm from [facility] for eRX* Active Pregabalin *Pick strength-f orm from [facility] for eRX* Active Lantus U-100 Insulin *Reorder fr om [facility] for eRx and Interaction Alerts* Active Novolog Flexpen U-100 Insulin *Reorder from [facility] for eRx and Interaction Alerts* Active Social History Social History Additional Details Category Social Info Options Details Migrated Social History Migrated Social History Smoking - 1/2 PPD, Smoking status (MU) - Current some day smoker Encounters Encounter Location Date Provider Diagnosis Migrated_Facility 0 0 03/17/2024 Provider Migration Plan Of Treatment No Information Progress Notes * Mena BAINS MDOB:[birth year] (49 yo F)Acc No.[id number]:03/17/2024 Patient: Lizbeth Mena SAUCEDO :1975 A ge:48 Y S ex:Female Address:[address] [place] [address] Subjective: * Chief Complaints: * E Tamia * Surgical History: back surgery Hysterectomy Tubal ligation * Family History: M igrated Family History: : Arthritis, c hronic pain, D iabetes, f ibromyalgia, H eart disease, H igh blood pressure, O steoporosis, R heumatoid arthritis, T hyroid disease. * Social History: M igrated Social History: M igrated Social History: Smoking - 1/2 PPD, S moking status (MU) - Current some day smoker. * Medications: T akingPregabalin , Notes to Pharmacist: *Pick strength-form from [facility] for eRX*Omeprazole , Notes to Pharmacist: *Pick strength-form from [facility] for eRX*Metoprolol Succinate , Notes to Pharmacist: *Pick strength-form from [facility] for eRX*Gabapentin , Notes to Pharmacist: *Pick strength-form from [facility] for eRX*Novolog Flexpen U-100 Insulin , Notes to Pharmacist: *Reorder from [facility] for eRx and Interaction Alerts*Ondansetron HCl , Notes to Pharmacist: *Pick strength-form from [facility] for eRX*Lantus U-100 Insulin , Notes to Pharmacist: *Reorder from [facility] for eRx and Interaction Alerts*Levothyroxine , Notes to Pharmacist: *Reorder from [facility] for eRx and Interaction Alerts*Taking Pregabalin , Notes to Pharmacist: *Pick strength-form from [facility] for eRX*Taking Omeprazole , Notes to Pharmacist: *Pick strength-form from [facility] for eRX*Taking Metoprolol Succinate , Notes to Pharmacist: *Pick strength-form from [facility] for eRX*Taking Gabapentin , Notes to Pharmacist: *Pick strength-form from [facility] for eRX*Taking Novolog Flexpen U- 100 Insulin , Notes to Pharmacist: *Reorder from [facility] for eRx and Interaction Alerts*Taking Ondansetron HCl , Notes to Pharmacist: *Pick strength-form from [facility] for eRX*Taking Lantus U-100 Insulin , Notes to Pharmacist: *[facility]*Taking Levothyroxine , Notes to Pharmacist: *[facility]* * Allergies: A moxicillin: yeast infections - Allergy * * Date:
--- NOTE | 2025-05-03 09:58 | XRR_ITS ---
PROCEDURE INFORMATION: Exam: XR Chest Exam date and time: 05/03/2025 10:09 AM Age: 49 years old Clinical indication: Pain; Chest pressure; Additional info: Chest pain TECHNIQUE: Imaging protocol: Radiologic exam of the chest. Views: 1 view. COMPARISON: CT lung screening [id number] 10/23/2024 8:57 AM FINDINGS: Lungs: Unremarkable. No consolidation. Pleural spaces: Unremarkable. No pleural effusion. No pneumothorax. Heart/Mediastinum: Unremarkable. No cardiomegaly. Bones/joints: Unremarkable. XR/XR chest 1V portable [id number] IMPRESSION: No acute findings.
--- NOTE | 2025-05-03 09:58 | ECG_ITS ---
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 Measurements Intervals [place] Rate: 100 P: 50 GA: 169 QRS: 14 QRSD: 68 T: 44 QT: 328 QTc: 423 Interpretive Statements SINUS TACHYCARDIA ABNORMAL RHYTHM ECG Compared to ECG 12/14/2024 21:50:16 HEART RATE HAS MILDLY INCREASED Electronically Signed On 05-03-2025 19:44:08 HOSPITAL SECRETARY by Arturo Mackenzie M.D. [id number]
[2025-05-03 10:00] VITALS: BP 165/97; PULSE 110; RESP 18; TEMP 36.5; O2SAT 98
--- OUTSIDE RECORDS SUMMARY | 2025-05-03 10:03 | XMS_ITS | Patient Health Record ---
Author Organization [facility] Address [address] [place] [address] Support Name Relationship Address , [place] [facility] Contact Unknown Unavailable Mena Cano Guarantor Unknown [phone] Care Team Providers Care Sap Data Analyst Name Role Phone Israel Otero MD Primary Care Provider Radha Loaiza Unavailable [phone] Reason For Referral No Information Medications Medication [...] status (MU) - Current some day smoker Plan Of Treatment No Information Insurance Providers Payer Name Payer Address Payer Phone Subscriber Number Group Number Insured Name Patient Relationship to Insured Coverage Start Date Coverage End Date [employer] [address] [address] [place] [address] [id number] Mena Cano Self - patient is the insured [place] Medicaid [address] [place] [address] [id number] Mena Cano Self - patient is the insured Medical (General) History Surgical History Surgery Date(Month/Year) Tubal ligation Hysterectomy back surgery
[2025-05-03 10:05] VITALS: BP 152/113
--- NOTE | 2025-05-03 10:12 | ED_ITS ---
HPI - General Adult 2 General: Chief complaint: General Medical Stated complaint: high bp / lt arm pain Time Seen by Provider: 05/03/25 10:12 History of Present Illness: 49-year-old female with history of strok e, hypertension, depression, hepatitis C, SVT, diabetes diabetic retinopathy, COPD and obstructive sleep apnea who presents emergency room with tingling on her left side. She is also concerned about her blood pressure being high. She did not realize it but she had not been taking her metoprolol for the last couple of weeks. She does not have any obvious focal motor deficits. The symptoms are on the side that she had issues when she had a stroke previously. She is on Plavix. No fevers. No cough. No chest pain. No abdominal pain. No nausea or vomiting. No confusion. Symptoms started about 5 days ago but have been worsening more recently Related Data Home Medications ?Medication ?Instructions ?Recorded ?Confirmed aspirin 325 mg tablet 325 mg PO DAILY 11/15/23 Held on 11/01/24. Instructions: Resume on 11/03/24. insulin lispro 100 unit/mL 5 unit SUBCUT TID PRN slidi ng scale 10/30/24 05/03/25 subcutaneous pen (Humalog KwikPen (U-100) Insulin) hydroxyzine HCl 25 mg tablet 25 mg PO TID PRN Itching 05/03/25 05/03/25 ketorolac 0.5 % eye drops 1 drp ophthalmic (eye) QID 1 07/04/24 05/03/25 levothyroxine 88 mcg tablet 88 mcg PO DAILY 05/03/25 1 07/04/24 prednisolone acetate 1 % eye 1 drp ophthalmic (eye) QI D 05/03/25 05/03/25 drops,suspension pregabalin 75 mg capsule 75 mg PO BID 05/03/25 Previous Rx's ?Medication ?Instructions ?Recorded blood-glucose,fire alarm installer,cont #1 ea 07/29/24 (Dexcom G7 Asset Management Lead) Rollator Walker #1 ea 10/17/24 insulin glargine 100 unit/mL (3 See Rx Instructions .R oute 11/12/24 mL) subcutaneous pen (Lantus .COMPLEX #45 mL Solostar U-100 Insulin) cetirizine 10 mg tablet (Zyrtec) 10 mg PO DAILY PRN al lergy 12/06/24 symptoms #90 tabs ondansetron HCl 4 mg tablet 4 mg PO Q8H PRN nausea and 12/15/24 vomiting #20 tabs blood pressure test kit-large #1 ea 12/20/24 (Omron Blood Pressure Monitor-3 Series kit) insulin pump cartridge,auto #1 ea 01/28/25 dose,BT,G6/G7 with controller subcutaneous (Omnipod 5 G6-G7 Intro Kit(Gen 5) subcutaneous cartridge and controller) clopidogrel 75 mg tablet (Plavix) 75 mg PO DAILY #90 t abs 02/10/25 pantoprazole 40 mg tablet,delayed 40 mg PO DAILY #90 t abs 02/10/25 release pen needle, diabetic 31 gauge x #100 ea 02/10/2508/04 (TechLITE Pen Needle) blood-glucose sensor (Dexcom G7 #9 ea 03/17/25 Sensor device) insulin pump cart,auto,BT,G6/7 #30 ea 03/17/25 (Omnipod 5 G6-G7 Pods (Gen 5) subcutaneous cartridge) mupirocin 2 % topical ointment 1 applic topical BID 2 weeks #22 04/03/25 grams fluoxetine 40 mg capsule 40 mg PO QAM #30 caps atorvastatin 40 mg tablet 40 mg PO DAILY #30 tabs 04/21 07/16 metoprolol tartrate 25 mg tablet 25 mg PO BID tachycar joe #60 tabs 05/02/25 metoprolol tartrate 25 mg tablet 25 mg PO BID #60 tabs 05/03/25 Allergies Allergy/AdvReac Type Severity Reaction Status Date / Time amoxicillin Allergy Unknown Verified 05/03/25 10:06 Review of Systems 2 Narrative: Constitutional symptoms: Negative except as documented in HPI. Skin symptoms: Negative except as documented in HPI. Eye symptoms: Negative except as documented in HPI. ENMT symptoms: Negative except as documented in HPI. Respiratory symptoms: Negative except as documented in HPI. Cardiovascular symptoms: Negative except as documented in HPI. Gastrointestinal symptoms: Negative except as documented in HPI. Genitourinary symptoms: Negative except as documented in HPI. Musculoskeletal symptoms: Negative except as documented in HPI. Neurologic symptoms: Negative except as documented in HPI. Psychiatric symptoms: Negative except as documented in HPI. Endocrine symptoms: Negative except as documented in HPI. PFSH ED 2 PFSH: Medical History (Updated 05/03/25 @ 11:45 by Donita Newberry MD) Moderate episode of recurrent major depressive disorder Pain after cerebrovascular accident (CVA) of Left side Major depressive disorder, recurrent, moderate Mass of right hip region Hypertension Screening for lung cancer LDCT 6; repeat one year Hx of cerebral infarction CVA R thalamic infarct--residual L side hemiplegia Hepatitis C treatment with Dr. Morgan ~1999 with interferon; went to ID and tried new treatment but didn't finish treatment b/c of med side effects Hemiplegia of left nondominant side as late effect of cerebral infarction Lumbar disc disease with radiculopathy Supraventricular tachycardia (~04/2020) identified during ED visit 04/2020, treated with 6mg adenosine with conversion to sinus; had ablation; now on metoprolol Generalized anxiety disorder with panic attacks Smokers' cough Diabetic macular edema Diabetic retinopathy, nonproliferative, severe Polysubstance (including opioids) dependence w/o physiol dependence smoker, severe cannabis, Opioid, Methamphetamines Insomnia Smoker LDCT 6 neg COPD (chronic obstructive pulmonary disease) with emphysema Scoliosis associated with other condition Hemochromatosis carrier Diabetes type 2, uncontrolled PTSD (post-traumatic stress disorder) Osteoarthritis involving multiple joints on both sides of body GERD (gastroesophageal reflux disease) JOSE (obstructive sleep apnea) per sleep study 2010, CPAP of 13 recommended at that time, no longer with machine Dyslipidemia Hypothyroidism Surgical History History of lumbar surgery 11.01.24 Dr. rGey; revision L4-5 Laminectomy and fascectomy History of radiofrequency ablation procedure for cardiac arrhythmia for SVT; done in [facility] Hx of colonoscopy 7.14.22 normal; repeat 10 yrs Hx of cataract surgery bilateral eye History of umbilical hernia repair (~2011) History of incision and drainage (~2013) left upper extremity and R lower extremity abscesses in past History of tubal ligation History of hysterectomy (~2011) also Kimberly urethral plication still has ovaries; hyst done for pain; no cancer Family History Father Diabetes CAD (coronary artery disease) Mother Diabetes Grandfather Postsurgical cardiac pacemaker in situ Diabetes mellitus, type 2 Denies family history of Stroke Social History Smoking and tobacco/nicotine status: current every day tobacco/nicotine user cigarettes Packs smoked per day: 0.5 Years cigarettes smoked: 33 [ Other cigarette details: started age 13; avg 3/4 ppd ] Second hand smoke exposure: Yes Alcohol intake: former Former alcohol use details: only as a teenager Substance/Drug Use: former Date of last use: IV drug use - 2019 Former substance use details: current marijuana Caregiver/support person: No Lives independently: Yes Household members: spouse Housing: House Marital status: Number of children: 2 Number of grandchildren: 0 Highest education level completed: High School Graduate service: No Current occupational status: unemployed 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 Skin: Warm, dry. Head: Normocephalic, atraumatic. Neck: Supple, trachea midline. Eye: Extraocular movements are intact. Ears, nose, mouth and throat: mucosa moist. Cardiovascular: Regular, Normal peripheral perfusion. Respiratory: Lungs are clear to auscultation, respirations are non-labored, breath sounds are equal, Symmetrical chest wall expansion. Gastrointestinal: Soft, Nontender, Non distended Musculoskeletal: Normal ROM, no deformity. Neurological: Alert and oriented, No focal neurological deficit observed. Psychiatric: Cooperative, appropriate mood & affect. Course 2 Vital Signs: Vital signs: Vital Signs Temperature 97.7 F 05/03/25 10:00 Pulse Rate 83 05/03/25 12:07 Respiratory Rate 16 05/03/25 11:30 Blood Pressure 127/77 05/03/25 12:07 Pulse Oximetry 98 05/03/25 12:07 Oxygen Delivery Me thod Room Air 05/03/25 11:30 MDM - General Adult Medical Decision Making Medical decision making Patient's reason for coming to the emergency room: Tingling on the left side. Hypertension. Social determinants: Patient is unemployed. She says her sister does her medications for her and forgot to fill her metoprolol I reviewed the patient's medical record. 49-year-old female with history of stroke, hypertension, depression, hepatitis C, SVT, diabetes diabetic retinopathy, COPD and obstructive sleep apnea I reviewed the patient's current home meds Patient is on Plavix at home. Alternate historians: None Differential diagnosis including but not limited to and based on the above HPI, review of systems and physical exam: Patient presents with hypertension: Essential hypertension. Stroke. acute coronary syndrome. kidney failure. congestive heart failure. anxiety. Orders placed to evaluate differential diagnosis based on the above differential, HPI and physical exam. Also given neurologic type symptoms we will do a CT head. This been going on for several days now so should be apparent if there is any type of stroke. Lab Review: Laboratory results were reviewed and interpreted by myself the emergency room physician. Mild leukocytosis. No anemia. No renal failure. Serial cardiac markers are negative. Chest x-ray: No acute process. No infiltrate. No pneumothorax. This was reviewed and interpreted by myself the emergency room physician. I also reviewed the radiology report. CT head: No acute intracranial process. No intracranial hemorrhage, no evidence of infarct. No evidence of acute fracture. This was reviewed and interpreted by myself the emergency room physician. I also reviewed the radiology report. Assessment of risk: Level of risk: Moderate risk patient. Hospitalization considerations: Reexamination: Patient's symptoms improved with treatment of her blood pressure. I think it is all secondary to that. No increased work of breathing. No altered mental status. No focal motor deficits. Assessment and plan: Accelerated hypertension Paresthesia ?IV labetalol with improvement in symptoms and blood pressure. - Discharged home - Discussed plan with patient. Answered any questions. - Evaluation and treatment of this problem were appropriate in the emergency setting. Lab Data 05/03/25 10:17 05/03/25 10:17 Radiology Impressions Chest X-Ray 05/03/25 09:58 IMPRESSION: No acute findings. Head CT 05/03/25 10:20 IMPRESSION: No acute intracranial abnormality. Laboratory Results WBC 11.45 10^3/uL (3.29-11.43) H 05/03/25 10:17 RBC 5.19 10^6/uL (3.85-5.65) 05/03/25 10:17 Hgb 14.60 g/dL (11.27-16.99) 05/03/25 10:17 Hct 41.8 % (36-47) 05/03/25 10:17 MCV 80.5 fl (85-98) L 05/03/25 10:17 MCH 28.1 pg (27-33) 05/03/25 10:17 MCHC 34.9 g/dL (30-55) 05/03/25 10:17 RDW 13.0 % (12.1-15.1) 05/03/25 10:17 Plt Count 396 10^3/cmm (157-399) 05/03/25 10:17 MPV 9.1 fL (7.4-10.4) 05/03/25 10:17 Neut % (Auto) 71.2 % 05/03/25 10:17 Lymph % (Auto) 17.6 % 05/03/25 10:17 [place] % (Auto) 7.2 % 05/03/25 10:17 Eos % (Auto) 2.6 % 05/03/25 10:17 Baso % (Auto) 1.1 % 05/03/25 10:17 Neut # (Auto) 8.14 10^3/uL (1.8-7.7) H 05/03/25 10:17 Lymph # (Auto) 2.0 10^3/uL (0.8-4.8) 05/03/25 10:17 [place] # (Auto) 0.8 10^3/uL (0.2-0.9) 05/03/25 10:17 Eos # (Auto) 0.3 10^3/uL (0.0-0.8) 05/03/25 10:17 Baso # (Auto) 0.1 10^3/uL (0.0-0.1) 05/03/25 10:17 Nucleated RBC % (auto) 0 % 05/03/25 10:17 Nucleated RBCs # 0.0 /100WBC 05/03/25 10:17 PT 12.60 SECONDS (12.1-14.9) 05/03/25 10:17 INR 0.88 (0.8-1.2) 05/03/25 10:17 APTT 25.0 SECONDS (23.9-36.7) 05/03/25 10:17 Sodium 132 mmol/L (136-145) L 05/03/25 10:17 Potassium 4.5 mmol/L (3.5-5.1) 05/03/25 10:17 Chloride 96 mmol/L (98-107) L 05/03/25 10:17 Carbon Dioxide 23 mmol/L (22-29) 05/03/25 10:17 Anion Gap 17.5 (5-19) 05/03/25 10:17 BUN 17 mg/dL (6-20) 05/03/25 10:17 Creatinine 0.8 mg/dL (0.5-0.9) 05/03/25 10:17 GFR Calculation 75.6 mL/min (90-130) L 05/03/25 10:17 Glucose 285 mg/dL (65-115) H 05/03/25 10:17 Calculated Osmolality 286 mOsm/kg (285-295) 05/03/25 10:17 Calcium 9.2 mg/dL (8.5-10.5) 05/03/25 10:17 Total Bilirubin 0.3 mg/dL (0.15-1.2) 05/03/25 10:17 AST 10 U/L (0-32) 05/03/25 10:17 ALT 11 U/L (0-33) 05/03/25 10:17 Alkaline Phosphatase 122 U/L (35-105) H 05/03/25 10:17 Troponin T Baseline 36 ng/L (0-10) H 05/03/25 10:17 Troponin T 60 Minute 32.61 ng/L (0-10) H 05/03/25 11:13 Delta Troponin T -3.39 ABS# (0-10) L 05/03/25 11:13 NT-Pro-B Natriuret Pep 72 pg/mL (0-125) 05/03/25 10:17 Total Protein 7.6 g/dL (6.6-8.7) 05/03/25 10:17 Albumin 4.2 g/dL (3.5-5.2) 05/03/25 10:17 Globulin 3.4 g/dL (1.3-4.6) 05/03/25 10:17 Lipase 22 U/L (13-60) 05/03/25 10:17 All radiology interpretation(s) finalized by discharge Discharge Plan Discharge Patient Disposition: Home Clinical Impression: Hypertension, Paresthesia Condition: Stable Prescriptions: New metoprolol tartrate 25 mg tablet 25 mg PO BID Qty: 60 0RF No Action aspirin 325 mg tablet 325 mg PO DAILY (DME) Dexcom G7 Asset Management Lead Misc See Rx Instructions .Route Qty: 1 0RF Rx Instructions: As directed pantoprazole 40 mg tablet,delayed release (DR/EC) 40 mg PO DAILY Qty: 90 1RF clopidogrel [Plavix] 75 mg tablet 75 mg PO DAILY Qty: 90 3RF mupirocin 2 % ointment 1 applic topical BID 14 Days Qty: 22 2RF (DME) Rollator Walker See Rx Instructions .Route .MEDSUPPLY Qty: 1 0RF Rx Instructions: As directed insulin lispro [Humalog KwikPen Insulin] 100 unit/mL insulin pen 5 unit SUBCUT TID PRN (Reason: sliding scale) cetirizine [Zyrtec] 10 mg tablet 10 mg PO DAILY PRN (Reason: allergy symptoms) Qty: 90 1RF (DME) blood pressure test kit-large [Omron BP Monitor-3 Series] Kit See Rx Instructions .Route Qty: 1 0RF Rx Instructions: As directed insulin glargine [Lantus Solostar U-100 Insulin] 100 unit/mL (3 mL) insulin pen See Rx Instructions .ROUTE .COMPLEX Qty: 45 1RF Dose Instruction: INJECT 25 UNITS SUBCUTANEOUSLY EVERY MORNING Rx Instructions: INJECT 30 UNITS SUBCUTANEOUSLY EVERY MORNING and titrate to 40 as discussed in clinic (DME) Omnipod 5 G6-G7 Intro Kt(Gen5) Cartridge See Rx Instructions .Route Qty: 1 0RF Rx Instructions: As directed ([facility]) pen needle, diabetic [TechLITE Pen Needle] 31 gauge x 3/16 needle See Rx Instructions .ROUTE .COMPLEX Qty: 100 2RF Dose Instruction: USE DIRECTED Rx Instructions: USE DIRECTED (DME) Dexcom G7 Sensor Device See Rx Instructions .ROUTE .COMPLEX Qty: 9 3RF Dose Instruction: USE DIRECTED. CHANGE EVERY 10 DAYS Rx Instructions: USE DIRECTED. CHANGE EVERY 10 DAYS ([facility]) Omnipod 5 G6-G7 Pods (Gen 5) Cartridge See Rx Instructions .ROUTE .COMPLEX Qty: 30 3RF Dose Instruction: USE DIRECTED. Rx Instructions: USE DIRECTED. fluoxetine 40 mg capsule 40 mg PO QAM Qty: 30 1RF atorvastatin 40 mg tablet 40 mg PO DAILY Qty: 30 0RF metoprolol tartrate 25 mg tablet 25 mg PO BID Qty: 60 0RF ondansetron HCl 4 mg tablet 4 mg PO Q8H PRN (Reason: nausea and vomiting) Qty: 20 2RF ketorolac 0.5 % drops 1 drp ophthalmic (eye) QID prednisolone acetate 1 % drops,suspension 1 drp ophthalmic (eye) QID pregabalin 75 mg capsule 75 mg PO BID levothyroxine 88 mcg tablet 88 mcg PO DAILY hydroxyzine HCl 25 mg tablet 25 mg PO TID PRN (Reason: Itching) Discharge Orders: Discharge ED (Routine); Ordered 05/03/25 Ordered By: Donita Newberry Referrals: Marly Goss MD [Primary Care Provider, Family Practice] Discharge Diet: Usual diet Discharge Activity: Increase activity as tolerated Patient Instructions: Hypertension (ED), Opioid Safety, Pain Management, Patient Portal & Lara Instructions Activity Restrictions/Additional Instructions: Thank you for choosing [facility] for your healthcare needs today. You have been screened and evaluated and felt safe for discharge. Health conditions do change or evolve sometimes and as such it is important that you follow up with your Primary Doctor to be re checked, 3-5 days is a general good time frame for follow up. You are always welcome to return to the ED for re assessment if your symptoms are worsening or you have new concerns. (Please note that included in your discharge packet is information concerning opioid safety and pain management. This information is given to all patients who are discharged from the ER regardless of their discharge diagnosis or the medicines they usually take or are prescribed.) Print Language: Tamazight Coding Level of Care Code ED School Bus Attendant for Esperanza Hernandez
[2025-05-03] MEDS: labetalol 5 mg/mL SDV 20mL 20 MG IVP (10:20)
--- NOTE | 2025-05-03 10:20 | CTR_ITS ---
PROCEDURE INFORMATION: Exam: CT Head Without Contrast Exam date and time: 05/03/2025 10:23 AM Age: 49 years old Clinical indication: Other: Right sided tingling, HTN, h/o stroke TECHNIQUE: Imaging protocol: Computed tomography of the head without contrast. Radiation optimization: All CT scans at this facility use at least one of these dose optimization techniques: automated exposure control; mA and/or kV adjustment per patient size (includes targeted exams where dose is matched to clinical indication); or iterative reconstruction. COMPARISON: CT head wo con* [id number] 07/09/2024 10:00 AM RADIATION DOSE METRICS: Total DLP (mGy-cm): 1019.48 FINDINGS: Brain: Chronic hypodensity along the right thalamus likely a chronic lacunar infarct. No hemorrhage. Unremarkable white matter. No mass effect. Cerebral ventricles: No ventriculomegaly. Paranasal sinuses: Visualized sinuses are unremarkable. No fluid levels. Mastoid air cells: There is minimal bilateral partial opacification of the maxillary sinuses. Bones: Unremarkable. No acute fracture. Soft tissues: Unremarkable. CT/CT head wo con* [id number] IMPRESSION: No acute intracranial abnormality.
[2025-05-03 10:22] LABS: Hematocrit 41.8 % (36-47); Hemoglobin 14.60 g/dL (11.27-16.99); Mean Corpuscular HGB Conc 34.9 g/dL (30-55); Mean Corpuscular Hemoglobin 28.1 pg (27-33); Mean Corpuscular Volume 80.5 fl (85-98); Nucleated Red Blood Cells % 0 %; Platelet Count 396 10^3/cmm (157-399); Red Blood Count 5.19 10^6/uL (3.85-5.65); White Blood Count 11.45 10^3/uL (3.29-11.43)
[2025-05-03 10:42] LABS: INR 0.88 (0.8-1.2); Partial Thromboplastin Time 25.0 SECONDS (23.9-36.7); Prothrombin Time 12.60 SECONDS (12.1-14.9)
[2025-05-03 10:48] LABS: Troponin(5th) Baseline 36 ng/L (0-10)
[2025-05-03 10:55] LABS: Alanine Aminotransferase 11 U/L (0-33); Albumin Level 4.2 g/dL (3.5-5.2); Alkaline Phosphatase 122 U/L (35-105); Anion Gap 17.5 (5-19); Aspartate Amino Transferase 10 U/L (0-32); Blood Urea Nitrogen 17 mg/dL (6-20); Calcium 9.2 mg/dL (8.5-10.5); Carbon Dioxide 23 mmol/L (22-29); Chloride 96 mmol/L (98-107); Globulin 3.4 g/dL (1.3-4.6); Glucose 285 mg/dL (65-115); Lipase 22 U/L (13-60); NT Pro B Type Natriuretic Pept 72 pg/mL (0-125); Osmolality Calculated 286 mOsm/kg (285-295); Potassium 4.5 mmol/L (3.5-5.1); Sodium 132 mmol/L (136-145); Total Protein 7.6 g/dL (6.6-8.7)
[2025-05-03 11:05] VITALS: PULSE 86; O2SAT 96
[2025-05-03 11:29] VITALS: BP 130/84
[2025-05-03 11:30] VITALS: BP 121/85; PULSE 87; RESP 16; O2SAT 100
--- NOTE | 2025-05-03 11:38 | ECG_ITS ---
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 Measurements Intervals [place] Rate: 85 P: 28 IN: 159 QRS: -8 QRSD: 78 T: 13 QT: 384 QTc: 457 Interpretive Statements SINUS RHYTHM MINIMAL VOLTAGE CRITERIA FOR LVH, CONSIDER NORMAL VARIANT [MEETS CRITERIA IN ONE OF: R(aVL), S(V1), R(V5), R(V5/V6)+S(V1)] Compared to ECG 05/03/2025 10:08:19 Sinus tachycardia no longer present Electronically Signed On 05-03-2025 20:02:49 [employer] by Arturo Mackenzie M.D. [email or web address]
[2025-05-03] MEDS: HYDROcodone-acetaminophen 10-325 mg Tablet 1 TAB PO (11:47)
[2025-05-03 12:07] VITALS: BP 127/77; PULSE 83; O2SAT 98
== END 2025-05-03 12:17 | disposition home or self-care (01) ==
PROVIDERS: Emergency Provider Emergency Medicine; PCP Family Medicine
DX: I10 Essential (primary) hypertension (principal); R20.2 Paresthesia of skin; Z79.4 Long term (current) use of insulin; Z79.02 Long term (current) use of antithrombotics/antiplatelets; F17.210 Nicotine dependence, cigarettes, uncomplicated; Z86.73 Personal history of transient ischemic attack (TIA), and cerebral infarction without residual deficits; J44.9 Chronic obstructive pulmonary disease, unspecified; E78.5 Hyperlipidemia, unspecified; E11.9 Type 2 diabetes mellitus without complications
CPT/HCPCS: 36415; 70450; 71045; 80053; 83690; 83880; 84484; 85025; 85610; 85730; 93005; 96374; 99285; J3490; J9999

== ENCOUNTER → 2025-05-12 12:34 | Outpatient (BNVA) | payer OTHER, MEDICAID, SELFPAY | PROVIDERS: PCP Family Medicine; Visit Provider Family Medicine | DX: E11.65 Type 2 diabetes mellitus with hyperglycemia (principal) | CPT/HCPCS: 83036 ==